=== PATIENT | female | born 2005 | race Caucasian/White ===

== ENCOUNTER 2023-03-08 16:20 | Emergency (ER) | payer OTHER, SELFPAY ==
[2023-03-08 16:24] VITALS: BP 135/79; PULSE 108; RESP 20; TEMP 36.9; O2SAT 99; BMI 30.9
--- NOTE | 2023-03-08 19:06 | ED_ITS ---
Documented by User: JANETH 03/08/23 19:12 HPI - Ear Problem General Chief complaint: Ear Stated complaint: ear pain Time Seen by Provider: 03/08/23 18:36 Source: patient Mode of arrival: walk-in Limitations: no limitations History of Present Illness HPI Narrative: patient is a 17-year-old female presents to the emergency department for the evaluation of pain in the left ear for the last two days. She states she has associated nasal congestion but no significant cough or chest congestion. She denies fevers, vomiting. She denies a possibility of . She took an o vfq-qst-lpxwdnz sinus medication without improvement. She denies any drainage from the left ear. Related Data Previous Rx's Medication Instructions Recorded azithromycin 250 mg tablet See Rx Instructions PO .COMPLEX #6 03/08/23 (Zithromax Z-Dg) tabs itzxfhoqewuwske-mmlwqrhqnodsged-QF 10 ml PO Q6H PRN cold symptoms 03/08/23 2 mg-30 mg-10 mg/5 mL oral syrup #118 mL (Bromfed DM) Allergies Allergy/AdvReac Type Severity Reaction Status Date / Time amoxicillin Allergy Severe Rash Verified 03/08/23 16:29 Review of Systems ROS Constitutional Denies: fever or chills Ears, nose, mouth, and throat Reports: ear pain and nasal congestion; Denies: throat pain Cardiovascular Denies: chest pain Respiratory Denies: shortness of breath Gastrointestinal Denies: nausea or vomiting Musculoskeletal Denies: back pain or neck pain Integumentary/Breast Denies: rash Neurological Denies: headache Hematologic/Lymphatic Denies: easy bruising PFSH PFSH Social History Smoking status: Never smoker Exam Narrative Exam Narrative: Gen.: Awake, alert, in no distress Head: Normocephalic, atraumatic ENT: Moist mucous membranes, right tympanic membrane is bulging, left tympanic membrane is bulging and erythematous and mildly injected in the superior half of the tympanic membrane. No evidence of perforation, no drainage in the canal. Respiratory: No respiratory distress, lungs clear bilaterally Cardio: Regular rate and rhythm Extremities: Moves extremities equally, no injuries noted Psych: Normal mood and affect Neuro: No focal neuro deficit Skin: Warm, dry, intact Constitutional Vital Signs, click to edit/add: Last Vital Signs Temp 98.4 F 03/08/23 16:24 Pulse 108 H 03/08/23 16:24 Resp 20 03/08/23 16:24 BP 135/79 03/08/23 16:24 Pulse Ox 99 03/08/23 16:24 O2 Del Method Room Air 03/08/23 16:24 Course Vital Signs Vital signs: Vital Signs Temperature 98.4 F 03/08/23 16:24 Pulse Rate 108 H 03/08/23 16:24 Respiratory Rate 20 03/08/23 16:24 Blood Pressure 135/79 03/08/23 16:24 Pulse Oximetry 99 03/08/23 16:24 Oxygen Delivery Method Room Air 03/08/23 16:24 Temperature 98.4 F 03/08/23 16:24 Pulse Rate 108 H 03/08/23 16:24 Respiratory Rate 20 03/08/23 16:24 Blood Pressure 135/79 03/08/23 16:24 Pulse Oximetry 99 03/08/23 16:24 Oxygen Delivery Method Room Air 03/08/23 16:24 Medical Decision Making MDM Narrative Medical decision making narrative: patient will be treated for early otitis media in the left ear, nasal congestion. She is placed on Bromfed-DM and azithromycin. She is ALLERGIC to penicillin. Follow-up with PCP and return to the Emergency Room if symptoms change or worsen. Patient appears well-hydrated and nontoxic at discharge. Medical Records Medical records reviewed: Yes I reviewed the patient's medical records Discharge Plan Discharge Chief Complaint: Ear Clinical Impression: URI (upper respiratory infection), Otitis media Patient Disposition: Home, Self-Care Time of Disposition Decision: 19:07 Condition: Good Prescriptions / Home Meds: New achvpfgfypzumut-vppmmeysv-KV [Bromfed DM] 2-30-10 mg/5 mL syrup 10 ml PO Q6H PRN (Reason: cold symptoms) Qty: 118 0RF azithromycin [Zithromax Z-Dg] 250 mg tablet See Rx Instructions .ROUTE .COMPLEX Qty: 6 0RF Rx Instructions: For 250 mg dose pack: take 500 mg today (day 1), then 250 mg for 4 days (days 2-5) Instructions: Ear Infection (ED), Upper Respiratory Infection (ED) Stand Alone Forms: Portal Instructions Referrals: HAZEL GRADY [Primary Care Provider] - 1 week Discharge Date/Time: 03/08/23 19:15 Documented by User: Kenny Alarcon MD 03/08/23 21:10 HPI - Ear Problem General Chief complaint: Ear Stated complaint: ear pain Time Seen by Provider: 03/08/23 18:36 Related Data Previous Rx's Medication Instructions Recorded azithromycin 250 mg tablet See Rx Instructions PO .COMPLEX #6 03/08/23 (Zithromax Z-Dg) tabs zbfndfgrdbfrvlu-hypntclufuvnwnh-HG 10 ml PO Q6H PRN cold symptoms 03/08/23 2 mg-30 mg-10 mg/5 mL oral syrup #118 mL (Bromfed DM) Allergies Allergy/AdvReac Type Severity Reaction Status Date / Time amoxicillin Allergy Severe Rash Verified 03/08/23 16:29 PFSH PFSH Social History Smoking status: Never smoker Exam Constitutional Vital Signs, click to edit/add: Last Vital Signs Temp 98.4 F 03/08/23 16:24 Pulse 108 H 03/08/23 16:24 Resp 20 03/08/23 16:24 BP 135/79 03/08/23 16:24 Pulse Ox 99 03/08/23 16:24 O2 Del Method Room Air 03/08/23 16:24 Course Vital Signs Vital signs: Vital Signs Temperature 98.4 F 03/08/23 16:24 Pulse Rate 108 H 03/08/23 16:24 Respiratory Rate 20 03/08/23 16:24 Blood Pressure 135/79 03/08/23 16:24 Pulse Oximetry 99 03/08/23 16:24 Oxygen Delivery Method Room Air 03/08/23 16:24 Temperature 98.4 F 03/08/23 16:24 Pulse Rate 108 H 03/08/23 16:24 Respiratory Rate 20 03/08/23 16:24 Blood Pressure 135/79 03/08/23 16:24 Pulse Oximetry 99 03/08/23 16:24 Oxygen Delivery Method Room Air 03/08/23 16:24 Medical Decision Making MDM Narrative Medical decision making narrative: patient will be treated for early otitis media in the left ear, nasal congestion. She is placed on Bromfed-DM and azithromycin. She is ALLERGIC to penicillin. Follow-up with PCP and return to the Emergency Room if symptoms change or worsen. Patient appears well-hydrated and nontoxic at discharge. I, Dr Alarcon, have reviewed the above progress note and course of action in the ER; agree with the above. I have personally seen and evaluated this patient, gone over history and physical, and discussed disposition and treatment plan with the patient. Discharge Plan Discharge Chief Complaint: Ear Clinical Impression: URI (upper respiratory infection), Otitis media Patient Disposition: Home, Self-Care Time of Disposition Decision: 19:07 Condition: Good Prescriptions / Home Meds: New bqzmznabjemiyma-gzxgysosn-HD [Bromfed DM] 2-30-10 mg/5 mL syrup 10 ml PO Q6H PRN (Reason: cold symptoms) Qty: 118 0RF azithromycin [Zithromax Z-Dg] 250 mg tablet See Rx Instructions .ROUTE .COMPLEX Qty: 6 0RF Rx Instructions: For 250 mg dose pack: take 500 mg today (day 1), then 250 mg for 4 days (days 2-5) Instructions: Ear Infection (ED), Upper Respiratory Infection (ED) Stand Alone Forms: Portal Instructions Referrals: HAZEL GRADY [Primary Care Provider] - 1 week Discharge Date/Time: 03/08/23 19:15
== END 2023-03-08 19:15 | disposition home or self-care (01) ==
PROVIDERS: Emergency Provider Emergency Medicine; PCP Family Medicine
DX: H66.92 Otitis media, unspecified, left ear (principal); J06.9 Acute upper respiratory infection, unspecified
CPT/HCPCS: 99283

== ENCOUNTER 2023-05-26 17:26 | Emergency (ER) | payer OTHER, SELFPAY ==
[2023-05-26 17:31] VITALS: BP 152/109; PULSE 100; RESP 18; TEMP 36.6; O2SAT 100; BMI 30.9
--- NOTE | 2023-05-26 18:51 | ED_ITS ---
HPI - Ear Problem General Chief complaint: Ear Stated complaint: EARACHE Time Seen by Provider: 05/26/23 17:27 Source: patient Mode of arrival: walk-in Limitations: no limitations History of Present Illness HPI Narrative: patient is a 17-year-old female who presents to the emergency department for a one-week history of cough, congestion and bilateral ear pain. She has had no fevers, vomiting. No sputum production with coughing. 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 She does not meet Covid testing for her employer. No medications taken prior to arrival. She is not concerned for . Related Data Previous Rx's Medication Instructions Recorded azithromycin 250 mg tablet See Rx Instructions PO .COMPLEX #6 03/08/23 (Zithromax Z-Dg) tabs ozbnxkvjufviats-ffknqthpuxahcvm-AI 10 ml PO Q6H PRN cold symptoms 03/08/23 2 mg-30 mg-10 mg/5 mL oral syrup #118 mL (Bromfed DM) azithromycin 250 mg tablet See Rx Instructions PO .COMPLEX #6 05/26/23 (Zithromax Z-Dg) tabs nnhlwjgfkkvyxfv-prnnizayishvakk-KM 10 ml PO Q6H PRN cold symptoms 05/26/23 2 mg-30 mg-10 mg/5 mL oral syrup #200 mL (Bromfed DM) Allergies Allergy/AdvReac Type Severity Reaction Status Date / Time amoxicillin Allergy Severe Rash Verified 03/08/23 16:29 Review of Systems ROS Constitutional Denies: fever or chills Ears, nose, mouth, and throat Reports: ear pain and nasal congestion; Denies: t hroat pain Cardiovascular Denies: chest pain Respiratory Reports: cough; Denies: shortness of breath Gastrointestinal Denies: nausea or vomiting Musculoskeletal Denies: back pain Integumentary/Breast Denies: rash Neurological Denies: headache Hematologic/Lymphatic Denies: easy bruising PFSH PFSH Social History Smoking status: Never smoker Exam Narrative Exam Narrative: Gen.: Awake, alert, in no distress Head: Normocephalic, atraumatic ENT: Moist mucous membranes, bilateral tympanic membranes bulging with no erythema or injection, no pharyngeal erythema Respiratory: No respiratory distress, lungs clear bilaterally Cardio: Regular rate and rhythm Extremities: Moves extremities equally Psych: Normal mood and affect Neuro: No focal neuro deficit Skin: Warm, dry, intact Constitutional Vital Signs, click to edit/add: Last Vital Signs Temp 97.9 F 05/26/23 17:31 Pulse 100 H 05/26/23 17:31 Resp 18 05/26/23 17:31 BP 152/109 H 05/26/23 17:31 Pulse Ox 100 05/26/23 17:31 Course Vital Signs Vital signs: Vital Signs Temperature 97.9 F 05/26/23 17:31 Pulse Rate 100 H 05/26/23 17:31 Respiratory Rate 18 05/26/23 17:31 Blood Pressure 152/109 H 05/26/23 17:31 Pulse Oximetry 100 05/26/23 17:31 Temperature 97.9 F 05/26/23 17:31 Pulse Rate 100 H 05/26/23 17:31 Respiratory Rate 18 05/26/23 17:31 Blood Pressure 152/109 H 05/26/23 17:31 Pulse Oximetry 100 05/26/23 17:31 Medical Decision Making MDM Narrative Medical decision making narrative: exam and history are consistent with upper respiratory infection, patient t reated based on the duration of symptoms with Z-Dg and Bromfed-DM to follow-up with PCP. Return to the Emergency Room if symptoms change or worsen. Medical Records Medical records reviewed: Yes I reviewed the patient's medical records Discharge Plan Discharge Chief Complaint: Ear Clinical Impression: URI (upper respiratory infection) Patient Disposition: Home, Self-Care Time of Disposition Decision: 18:47 Condition: Good Prescriptions / Home Meds: New azithromycin [Zithromax Z-Dg] 250 mg tablet See Rx Instructions .ROUTE .COMPLEX Qty: 6 0RF Rx Instructions: For 250 mg dose pack: take 500 mg today (day 1), then 250 mg for 4 days (days 2-5) wnymgokliygxcae-pvvepldyg-PP [Bromfed DM] 2-30-10 mg/5 mL syrup 10 ml PO Q6H PRN (Reason: cold symptoms) Qty: 200 0RF No Action wyxtqxirzwkkfow-rmcshcoim-ZG [Bromfed DM] 2-30-10 mg/5 mL syrup 10 ml PO Q6H PRN (Reason: cold symptoms) Qty: 118 0RF azithromycin [Zithromax Z-Dg] 250 mg tablet See Rx Instructions .ROUTE .COMPLEX Qty: 6 0RF Rx Instructions: For 250 mg dose pack: take 500 mg today (day 1), then 250 mg for 4 days (days 2-5) Instructions: Upper Respiratory Infection (ED) Stand Alone Forms: Portal Instructions Referrals: HAZEL GRADY [Primary Care Provider] - 1 week
== END 2023-05-26 18:55 | disposition home or self-care (01) ==
PROVIDERS: Emergency Provider Emergency Medicine; PCP Family Medicine
DX: J06.9 Acute upper respiratory infection, unspecified (principal)
CPT/HCPCS: 99283

== ENCOUNTER 2024-06-24 15:16 | Emergency (ER) | payer OTHER, SELFPAY ==
[2024-06-24 15:21] VITALS: PULSE 88; TEMP 36.7; O2SAT 100; BMI 30.9
--- OUTSIDE RECORDS SUMMARY | 2024-06-24 15:25 | XMS_ITS | CCD ---
Author Organization [facility] CliniS[employer]n Care Team Providers Care New Client Banking Services Clerk Name Role Phone Almaz Huerta Unavailable HAZEL GRADY Primary Care Unavailable CHRISTIANO TATUM Attending Unavailable CHRISTIANO TATUM Consulting Unavailable CHRISTIANO TATUM Admitting Unavailable Sheree Cheung Unavailable Dom Sarmiento Attending Unavailable Tiesha Flood Unavailable Allergies Allergy Classification Reported Allergen(s) Allergy Type Date of Onset Reaction(s) Facility (5 sources) Amoxicillin; Translations: [amoxicillin] Drug Allergy [facility] Repository (1 source) Amoxicillin Drug Allergy 07-16-2016 [facility] Repository Medications Current Medications Medication Drug Class(es) Dates Sig (Normalized) Sig (Original) azithromycin 500 mg oral tablet (1 source) Macrolide Antimicrobial Start: 09-17-2023 take 1 tablet by mouth every twenty-four hours Azithromycin 500 MG 1 tablet Orally Once a day for 5 days Sep, Active sprintec 28 0.25-35 mg-mcg tablet (2 sources) Progestin, Estrogen Start: 09-06-2023 take 1 tablet by mouth every twenty-four hours Sprintec 28 0.25-35 MG-MCG 1 tablet Orally Once a day for 28 day(s) Aug, Active sertraline 50 mg oral tablet (3 sources) Serotonin Reuptake Inhibitor Start: 07-27-2023 take 1 tablet by mouth once daily Sertraline HCl 50 MG 1 tablet Orally Once a day at night for 30 days Jul, Active Problems Active Problems Problem Classification Problem Date Documented Date Episodic/Chronic Anxiety disorders (5 sources) Generalized anxiety disorder; Translations: [Generalized anxiety disorder] Chronic Contraceptive and procreative management (1 source) Encounter for initial prescription of contraceptive pills Episodic Mood disorders (5 sources) Moderate major depression ; Translations: [Major depressive disorder, single episode, moderate] Chronic Other upper respiratory disease (3 sources) Nasal congestion; Translations: [NASAL CONGESTION] Onset: 04-06-2022 Episodic Other upper respiratory infections (3 sources) Acute upper respiratory infection, unspecified; Translations: [Acute pharyngitis, unspecified] Onset: 04-07-2022 Episodic Past or Other Problems Problem Classification Problem Date Documented Da te Episodic/Chronic Administrative/social admission (1 source) Encounter for pre-employment examination Onset: 01-21-2022 Resolved: 01-21-2022 Episodic Results Test Name Value Interpretation Reference Range Facility [facility]rep[facility] 09-17-2023 S. pyogenes Org specific cx Ql (Throat) positve [employer] Other Quick Strep [employer] Other Test, Urineon 08-11 Beta HCG ( test) Ql (U) Negative [facility] [employer] Other Capillary Glucose POCon Glucose [Mass/Vol] 94 mg/dL Normal 55-99 [facility] Comment on above: Result Comment: Loretta mcneal RN/ Performed By: #### 2 [id number] #### [facility] Laboratory [address] [place] [id number] Consent for Treatmenton Consent for Treatment [id number] 0TIFF Normal [facility] Discharge Instructionson Discharge Instructions [id number] 0TIFF Normal [facility] ED Clinical Summaryon 2022 ED Clinical Summary [address] [address] ED Clinical Summary Person Information Name: JIMBO DOE/Antonino_Franco Age: 17 Years : 2005 Sex: Female Language: Bulgarian PCP: Lv WANG, Hazel Barajas Marital Status: Single Visit Id: Visit Reason: Cough; Dizziness; Ear pain; sob ear pain Speciality: Acuity: 3 Enc Type: Emergency Med Service: Emergency Arrival: 07/13/2023 23:32:13 Discharge: 07/14/2023 03:42:13 LOS: 000 04:10 Checkin: 07/13/2023 23:32:13 Checkout: 07/14/2023 03:42:13 Dispo Type: Home (Routine DC) EVENTS: Event Name Event Status Request Date/Time Start Date/Time Complete Date/Time Arrive Complete 07/13/2023 23:32:13 07/13/2023 23:32:13 07/13/2023 23:32:13 Document Home Meds Request 07/13/2023 23:32:13 Triage Complete 07/13/2023 23:32:13 07/13/2023 23:42:06 07/13/2023 23:42:06 EKG Complete 07/13/2023 23:40:09 07/14/2023 01:56:05 Registration Complete 07/14/2023 00:23:48 07/14/2023 00:23:48 07/14/2023 00:23:48 Reg Complete Request 07/14/2023 00:23:48 Reg Bed Request Complete 07/14/2023 00:23:48 07/14/2023 00:23:48 07/14/2023 00:23:48 Bed Assign Complete 07/14/2023 01:47:27 07/14/2023 01:47:27 07/14/2023 01:47:27 Dr Exam Complete 07/14/2023 01:47:27 07/14/2023 01:56:46 07/14/2023 01:56:46 RN Exam Complete 07/14/2023 01:47:27 07/14/2023 02:02:27 07/14/2023 02:02:27 Registration Request 07/14/2023 01:56:46 Pending Labs Complete 07/14/2023 02:01:05 07/14/2023 02:01:05 07/14/2023 02:01:07 Pending Labs Complete 07/14/2023 02:16:25 07/14/2023 03:24:46 Lab Complete 07/14/2023 02:16:25 07/14/2023 03:24:35 Swab Complete 07/14/2023 02:16:25 07/14/2023 03:24:23 X-Ray Complete 07/14/2023 02:16:25 07/14/2023 02:22:57 07/14/2023 02:23:37 Wet Read Request 07/14/2023 02:23:37 Meds Admin Complete 07/14/2023 03:31:59 07/14/2023 03:38:36 Discharge Complete 07/14/2023 03:33:16 07/14/2023 03:42:19 07/14/2023 03:42:19 Transfer Complete 07/14/2023 03:42:20 07/14/2023 03:42:20 07/14/2023 03:42:20 ADDRESS: [address] [place] [address] [address] [facility] [id number] PHYS DOC NOTES: MEDICAL INFORMATION: Prescriptions Given: New Medications [id number], [address], [place] [id number], [phone] azithromycin (azithromycin 250 mg Tab) 1 Tablets By Mouth every day for 4 Days. Refills: 0. PATIENT EDUCATION INFORMATION: Instructions: Viral Illness, Adult; Otitis Media, Adult Follow up: With: Address: When: Hazel Lv [address] [place], [place] [id number] Business (2) In 7 days 07/21/2023 DIAGNOSIS: AOM (acute otitis media); Viral illness Normal [facility] ED Note-Physicianon 07-14-20 ED Note-Physician Basic Information Time Seen: Dom Sarmiento DO 07/14/2023 01:56 Chief Complaint Ear pain and dizziness for 2 days. Cough with productive sputum at times. No fever. History of Present Illness HPI: Patient is a 17-year-old female presents the ED for cough, lightheadedness, and ear pain. Patient states that for started with a cough and lightheadedness a couple days ago. Today she started having pain in both of her ears but worse on the right. She denies any nausea vomiting or diarrhea. She denies any fevers that she is aware of. ROS: Pertinent review of systems conducted and is negative except as noted above. Physical exam: General: nontoxic appearing and in no distress HEENT: Mucous membranes moist. Right TM is erythematous and opaque with some bulging. Left TM is clear. Neuro: awake and alert Neck: supple, trachea midline Card: Heart regular rate and rhythm no murmur Resp: Lungs clear to auscultation no wheeze or rhonchi Abd: Soft and nondistended. No tenderness to palpation with no rebound or guarding. Ext: No gross deformity or edema Physical Exam Vitals & Measurements T: 36.9 ?C(Oral) HR: 87(Monitored) RR: 18 BP: 149/62 SpO2: 98% HT: 175 cm WT: 121.7 kg BMI: 39.74 Medical Decision Making MEDICAL DECISION MAKING Number and Complexity of Problems Differential Diagnosis: [] [facility] Data External documents reviewed: N/A My EKG interpretation: Noted in chart if applicable My CT interpretation: N/A My X-ray interpretation: Noted in chart if applicable My Ultrasound interpretation: N/A Decision rules/scores evaluated: N/A Discussed with: N/A Treatment and Disposition ED Course: Patient is well-appearing in no distress. She is afebrile here in the ED. We did swabs for COVID flu and influenza which were negative. Chest x-ray is clear. Her right TM does show signs of acute otitis media. I feel this likely started as a viral URI and now she has developed a right ear infection. We will start her on a course of azithromycin as she has a history of allergy to amoxicillin. Will have her follow-up with her primary care physician. Shared decision making: As above Code status: N/A Assessment/Plan AOM (acute otitis media) (H66.90: Otitis media, unspecified, unspecified ear) Viral illness (B34.9: Viral infection, unspecified) Orders: azithromycin, 500 mg = 2 tab(s), Tab, Oral, Once, Stop date 07/14/23 3:31:00 EST, STAT, Start date 07/14/23 3:31:00 EST, 07/14/23 3:31:00 EST azithromycin, 250 mg = 1 tab(s), Oral, Daily, X 4 day(s), # 4 tab(s), Refills(s) 0, Pharmacy: [id number], 175, cm, 12/05/23 23:42:00 EST, Height/Length Dosing, 121.7, kg, 07/13/23 23:42:00 EST, Weight Dosing Capillary Glucose POC Influenza A&B Ag Rapid COVID Antigen ([facility] [place]) Resp.syn.virus (Rsv) XR Chest Single View Disposition Plan Discharge Prescription List Prescriptions azithromycin 250 mg Tab, 250 mg= 1 tab(s), Oral, Daily Follow-up With When Contact Information Hazel Grady In 7 days 07/21/2023 EST [address] [place] [address] [facility] (2) Additional Instructions: Patient Education Viral Illness, Adult Otitis Media, Adult Problem List/Past Medical History Ongoing No qualifying data Historical No qualifying data Medications Inpatient azithromycin 250 mg Tab, 500 mg= 2 tab(s), Oral, Once Home azithromycin 250 mg Tab, 250 mg= 1 tab(s), Oral, Daily Allergies amoxicillin (Rash) Social History Alcohol - Denies Alcohol Use, 07/14/2023 Substance Abuse - Denies Substance Abuse, 07/14/2023 Tobacco - Denies Tobacco Use, 07/14/2023 Lab Results Glucose Cap: 94 mg/dL (07/14/23 02:00:00) POC Device SN: [id number] (07/14/23 02:00:00) POC User ID: [id number] (07/14/23 02:00:00) POC Username: POC Username (07/14/23 02:00:00) Influenzae A Ag: NEGATIVE1 (07/14/23 02:22:00) Influenzae B Ag: NEGATIVE1 (07/14/23 02:22:00) RSV Ab: NEGATIVE1 (07/14/23 02:22:00) Rapid COVID Ag: Not Detected (07/14/23 02:22:00) Rapid COV Int NEG Ctl: Pass (07/14/23 02:22:00) Rapid COV Int POS Ctl: Pass (07/14/23 02:22:00) Diagnostic Results XR Chest Single View * Preliminary * 07/14/23 02:48:40 NEGATIVE: No acute process Read By: Dom Sarmiento DO EKG Results EC07/14/23: SINUS RHYTHM NORMAL ECG Signed By: Dom Sarmiento DO 07/14/2023 01:56:22 Normal [facility] Comment on above: Result Comment: Elec tronically Signed By: Dom Sarmiento DO\.br\Date and Time Signed: 07/14/23 03:34 EST ED Patient Education Noteon 07-14-2023 ED Patient Education Note ENT Otitis Media, Adult Otitis media occurs when there is inflammation and fluid in the middle ear with signs and symptoms of an acute infection. The middle ear is a part of the ear that contains bones for hearing as well as air that helps send sounds to the brain. When infected fluid builds up in this space, it causes pressure and can lead to an ear infection. The eustachian tube connects the middle ear to the back of the nose (nasopharynx) and normally allows air into the middle ear. If the eustachian tube becomes blocked, fluid can build up and become infected. What are the causes? This condition is caused by a blockage in the eustachian tube. This can be caused by mucus or by swelling of the tube. Problems that can cause a blockage include: ? A cold or other upper respiratory infection. ? Allergies. ? An irritant, such as tobacco smoke. ? Enlarged adenoids. The adenoids are areas of soft tissue located high in the back of the throat, behind the nose and the roof of the mouth. They are part of the body's defense system (immune system). ? A mass in the nasopharynx. ? Damage to the ear caused by pressure changes (barotrauma). What increases the risk? You are more likely to develop this condition if you: ? Smoke or are exposed to tobacco smoke. ? Have an opening in the roof of your mouth (cleft palate). ? Have gastroesophageal reflux. ? Have an immune system disorder. What are the signs or symptoms? Symptoms of this condition include: ? Ear pain. ? Fever. ? Decreased hearing. ? Tiredness (lethargy). ? Fluid leaking from the ear, if the eardrum is ruptured or has burst. ? Ringing in the ear. How is this diagnosed? This condition is diagnosed with a physical exam. During the exam, your health care provider will use an instrument called an otoscope to look in your ear and check for redness, swelling, and fluid. He or she will also ask about your symptoms. Your health care provider may also order tests, such as: ? A pneumatic otoscopy. This is a test to check the movement of the eardrum. It is done by squeezing a small amount of air into the ear. ? A tympanogram. This is a test that shows how well the eardrum moves in response to air pressure in the ear canal. It provides a graph for your health care provider to review. How is this treated? This condition can go away on its own within 3?5 days. But if the condition is caused by a bacterial infection and does not go away on its own, or if it keeps coming back, your health care provider may: ? Prescribe antibiotic medicine to treat the infection. ? Prescribe or recommend medicines to control pain. Follow these instructions at home: ? Take owib-wkz-iogwlih and prescription medicines only as told by your health care provider. ? If you were prescribed an antibiotic medicine, take it as told by your health care provider. Do not stop taking the antibiotic even if you start to feel better. ? Keep all follow-up visits. This is important. Contact a health care provider if: ? You have bleeding from your nose. ? There is a lump on your neck. ? You are not feeling better in 5 days. ? You feel worse instead of better. Get help right away if: ? You have severe pain that is not controlled with medicine. ? You have swelling, redness, or pain around your ear. ? You have stiffness in your neck. ? A part of your face is not moving (paralyzed). ? The bone behind your ear (mastoid bone) is tender when you touch it. ? You develop a severe headache. Summary ? Otitis media is redness, soreness, and swelling of the middle ear, usually resulting in pain and decreased hearing. ? This condition can go away on its own within 3?5 days. ? If the problem does not go away in 3?5 days, your health care provider may give you medicines to treat the infection. ? If you were prescribed an antibiotic medicine, take it as told by your health care provider. ? Follow all instructions that were given to you by your health care provider. This information is not intended to replace advice given to you by your health care provider. Make sure you discuss any questions you have with your health care provider. Document Revised: 11/03/2021 Document Reviewed: 11/03/2021 [employer] Patient Education ? 2022 RegisterPatient. Infectious Disease Viral Illness, Adult Viruses are tiny germs that can get into a person's body and cause illness. There are many different types of viruses, and they cause many types of illness. Viral illnesses can range from mild to severe. They can affect various parts of the body. Short-term conditions that are caused by a virus include colds and the flu (influenza). Long-term conditions that are caused by a virus include herpes, shingles, and HIV (human immunodeficiency virus) infection. A few viruses have been linked to certain cancers. What are the causes? Many types of viruses can cause illne (more content not included)... Normal [facility] ED Patient Summaryon 023 ED Patient Summary [address] [address] Patient Discharge Instructions Person Information Name: JIMBO DOE Age: 17 Years Arrival Date: 07/13/2023 23:32:13 Discharge Diagnosis: AOM (acute otitis media); Viral illness Primary Care Physician: Hazel Grady MD Provider Information Primary Provider: Dom Sarmiento DO [employer]:None The exam and treatment you received in the Emergency Department were for an urgent problem and are not intended as complete care. It is important that you follow up with a doctor, nurse practitioner, or physician?s assistant plant manager for ongoing care. If your symptoms become worse or you do not improve as expected and you are unable to reach your usual health care provider, you should return to the Emergency Department. We are available 24 hours a day. JIMBO DOE has been given the following list of patient education materials, prescriptions and follow-up instructions: Follow-up Instructions: With: Address: When: [place] [address] Business (2) In 7 days 07/21/2023 In the event that this physician does not participate in your insurance network, please consult with your insurance company to find a nearby participating provider. Patient Education Materials: Viral Illness, Adult; Otitis Media, Adult A MESSAGE TO ALL PATIENTS REGARDING OPIOIDS PRESCRIPTION OPIOIDS: WHAT YOU NEED TO KNOW Prescription opioids can be used to help relieve laqumpsv-uk-erjryo pain and are often prescribed following a surgery or injury, or for certain health conditions. These medications can be an important part of the treatment but also come with serious risks. It is important to work with your healthcare provider to make sure you are getting the safest, most effective care. WHAT ARE THE RISKS AND SIDE EFFECTS OF OPIOID USE? Prescription opioids carry serious risks of addiction and overdose, especially with prolonged use. An opioid overdose, often marked by slowed breathing, can cause sudden . The use of prescription opioids can have a number of side effects as well, even when taken as directed: ? Tolerance?meaning you might need to take more of the medication for the same pain relief ? Physical dependence?meaning you have symptoms of withdrawal when a medication is stopped ? Increased sensitivity to pain ? Constipation ? Nausea, vomiting, and dry mouth ? Sleepiness and dizziness ? Confusion ? Depression ? Low levels of testosterone that can result in lower sex drive, energy, and strength ? Itching and sweating RISKS ARE GREATER WITH: ? History of drug misuse, substance use disorder, or overdose ? Mental health conditions (such as depression or anxiety) ? Sleep apnea ? Older age (65 years and older) ? Avoid alcohol while taking prescription opioids. Also, unless specifically advised by your health care provider, medications to avoid include: ? Benzodiazepines (such as Xanax or Valium) ? Muscle relaxants (such as Soma or Flexeril) ? Hypnotics (such as Ambien or Lunesta) ? Other prescription opioids KNOW YOUR OPTIONS Talk to your health care provider about ways to manage your pain that don?t involve prescription opioids. Some of these options may actually work better and have fewer risks and side effects. Options may include: ? Pain relievers such as acetaminophen, ibuprofen, and naproxen ? Some medication that are also used for depression or seizures ? Physical therapy and exercise ? Cognitive behavioral therapy, a psychological, goal-directed approach, in which patients learn how to modify physical, behavioral, and emotional triggers of pain and stress. IF YOU ARE PRESCRIBED OPIOIDS FOR PAIN: ? Never take opioids in greater amounts or more often than prescribed. ? Follow up with your primary health care provider. o Work together to create a plan on how to manage your pain. o Talk about ways to help manage your pain that don?t involve prescription opioids. o Talk about any and all concerns and side effects. ? Help prevent misuse and abuse o Never sell or share prescription opioids. o Never use another person?s prescription opioids. ? Store prescription opioids in a secure place and out of reach of others (this may include visitors, children, friends, and family). ? Safely dispose of unused prescription opioids: Find your community drug take-back program or your pharmacy mail-back program, or flush them down the toilet, following guidance from the Food and Drug Administration (www.fda.gov/Drugs/Res ourcesForYou). ? Visit www.cdc.gov/drugoverdo se to learn about the risks of opioids abuse and overdose. ? If you believe you may be struggling with addiction, tell your health pet care associate and ask for guidance or call [facility]?S National Helpline at 4-002-345-DQAM. (more content not included)... Normal [facility] Influenza A&B Agon 3 Influenzae A Ag Negative Normal Negative [facility] Comment on above: Performed By: #### 2 [id number] #### [facility] [address] [place] [address] Influenzae B Ag Negative Normal Negative [facility] Comment on above: Result Comment: Test sensitivity and specificity vary for age group, specimen type, antigen types, and prevalence of disease. Test results must be evaluated in conjunction with other clinical data available to the physician. Individuals who received nasally administered Influenza A vaccine may have positive test results up to 3 days after vaccination. Performed By: #### 2 [id number] #### [facility] [address] [place] [address] Prescriptions/Work Noteson 1 09-14-2022 Prescriptions/Work Notes [id number] 0TIFF Normal [facility] Rapid COVID Antigen ([facility])on 07-14-2023 Rapid COV Int NEG Ctl Pass Normal [facility] Comment on above: Performed By: #### 2 [id number] #### [facility] [address] [place] [address] Rapid COV Int POS Ctl Pass Normal [facility] Comment on above: Performed By: #### 2 [id number] #### [facility] [address] [place] [address] SARS-CoV+SARS-CoV-2 (COVID-19) Ag IA.rapid Ql (Resp) Not detected Normal Not Detected [facility] Comment on above: Result Comment: The [employer] System for Rapid Detection of SARS-CoV-2 is a chromatographic digital immunoassay intended for the direct and qualitative detection of SARS-CoV-2 nucleocapsid antigens in nasal swabs from individuals who are suspected of COVID-19 by their healthcare provider within the first five days of the onset of symptoms. Negative results should be treated as presumptive, do not rule out SARS-CoV-2 infection and should not be used as the sole basis for treatment or patient management decisions, including infection control decisions. Negative results should be considered in the context of a patient?s recent exposures, history and the presence of clinical signs and symptoms consistent with COVID-19, and confirmed with a molecular assay, if necessary, for patient management. For in vitro diagnostic use. In the [place], only for use under an Emergency Use Authorization. In the [place], this test has not been FDA cleared or approved; this test has been authorized by FDA under an EUA for use by authorized laboratories; use by laboratories certified under the CLIA, 42 U.S.C. ?263a, that meet requirements to perform moderate, high, or waived complexity tests and at the Point of Care (POC), i.e., in patient care settings operating under a CLIA Certificate of Waiver, Certificate of Compliance, or Certificate of Accreditation. This test has been authorized only for the detection of proteins from SARS-CoV-2, not for any other viruses or pathogens; and, in the [place], this test is only authorized for the duration of the declaration that circumstances exist justifying the authorization of emergency use of in vitro diagnostics for detection and/or diagnosis of the virus that causes COVID-19 under Section 564(b)(1) of the Act, 21 U.S.C. ? 360bbb-3(b)(1), unless the authorization is terminated or revoked sooner. Performed By: #### 2 [id number] #### [facility] [address] [place] [address] Resp.syn.virus (Rsv)on 07-14 RSV Ag IA.rapid Ql (Nph) Negative Normal Negative [facility] Comment on above: Performed By: #### 2 [id number] #### [facility] [address] [place] [address] XR Chest Single Viewon 07-14 XR Chest Single View Exam Date/Time: 07/14/2023 02:23 EST Reason for Exam: Cough Report IMPRESSION: There are no acute cardiopulmonary changes. CLINICAL HISTORY: Cough EXAMINATION: XR Chest Single View COMPARISON: FINDINGS: The cardiomediastinal silhouette is unremarkable. The lungs are free of infiltrates effusions or consolidations. There are no acute osseous changes. Ordering Provider: Dom Sarmiento FINAL REPORT Dictated: 07/14/2023 7:48 am Dex Leyva MD, V. Signed (Electronic Signature): 07/14/2023 7:48 am Signed by: Dex Leyva MD, V. Transcribed by: ANGELINA Technologist: HILL Technical Comments Radiation Dose: Ka,r in mGy = na DAP = na Normal [facility] [employer] 12-24-2022 Forms [id number] 0CD:127 Normal [facility] Vital Signs Date Time Vital Sign Value Performing Clinician Facility 09-17-2023 09:35-0500 Body height 175.26 cm Tiesha Flood Other [facility] Other 09-17-2023 09:35-0500 Body mass index (BMI) [Ratio] 40.16 kg/m2 Tiesha Flood Other [facility] Other 09-17-2023 09:35-0500 Body temperature 99.2 [degF] Tiesha Flood Other [facility] Other 09-17-2023 09:35-0500 Body weight 123.38 kg Tiesha Flood Other [facility] Other 09-17-2023 09:35-0500 Respiratory rate 18 /min Tiesha Flood Other [facility] Other 09-17-2023 09:35-0500 SaO2% (BldA) [Mass fraction] 97 % Tiesha Flood Other [facility] Other 09-02-2023 09:30-0500 Body height 175.26 cm Sheree Cheung Other [facility] Other 09-02-2023 09:30-0500 Body mass index (BMI) [Ratio] 40.21 kg/m2 Sheree Cheung Other [facility] Other 09-02-2023 09:30-0500 Body weight 123.52 kg Sheree Cheung Other [facility] Other 09-02-2023 09:30-0500 Diastolic blood pressure 78 mm[Hg] Sheree Cheung Other [facility] Other 09-02-2023 09:30-0500 Respiratory rate 18 /min Sheree Cheung Other [facility] Other 09-02-2023 09:30-0500 SaO2% (BldA) [Mass fraction] 97 % Sheree Cheung Other [facility] Other 09-02-2023 09:30-0500 Systolic blood pressure 120 mm[Hg] Sheree Cheung Other [facility] Other 07-27-2023 09:30-0500 Body height 175.26 cm Sheree Cheung Other [facility] Other 07-27-2023 09:30-0500 Body mass index (BMI) [Ratio] 40.02 kg/m2 Sheree Jonatan Other [facility] Other 07-27-2023 09:30-0500 Body weight 122.93 kg Sheree Jonatan Other [facility] Other 07-27-2023 09:30-0500 Diastolic blood pressure 76 mm[Hg] Sheree Cheung Other [facility] Other 07-27-2023 09:30-0500 Respiratory rate 16 /min Sheree Jonatan Other [facility] Other 07-27-2023 09:30-0500 SaO2% (BldA) [Mass fraction] 98 % Sheree Cheung Other [facility] Other 07-27-2023 09:30-0500 Systolic blood pressure 120 mm[Hg] Sheree Cheung Other [facility] Other 01-21-2022 15:35-0400 Body height 175.26 cm Almaz Huerta Other [facility] Other 01-21-2022 15:35-0400 Body mass index (BMI) [Ratio] 30.86 kg/m2 Almaz Huerta Other [facility] Other 01-21-2022 15:35-0400 Body temperature 97.3 [degF] Almaz Huerta Other [facility] Other 01-21-2022 15:35-0400 Body weight 94.8 kg Almaz Huerta Other [facility] Other 01-21-2022 15:35-0400 Diastolic blood pressure 73 mm[Hg] Almaz Huerta Other [facility] Other 01-21-2022 15:35-0400 Respiratory rate 16 /min Almaz Huerta Other [facility] Other 01-21-2022 15:35-0400 SaO2% (BldA) [Mass fraction] 97 % Almaz Huerta Other [facility] Other 01-21-2022 15:35-0400 Systolic blood pressure 133 mm[Hg] Almaz Huerta Other [facility] Other Encounters Encounter Date Encounter Type Care Provider Facility Start: 09-17-2023 End: 09-17-2023 ambulatory Tiesha Flood Other [facility] Other Start: 09-17-2023 Office outpatient vi sit 15 minutes Tiesha Flood [facility] [place] Start: 09-02-2023 End: 09-02-2023 ambulatory Sheree Cheung Other [facility] Other Start: 09-02-2023 Office outpatient vi sit 25 minutes Sheree Cheung [facility] [place] Start: 07-27-2023 End: 07-27-2023 ambulatory Sheree Cheung Other [facility] Other Start: 07-27-2023 Encounter for genera l adult medical examination without abnormal findings Sheree Cheung [facility] [place] Start: 07-27-2023 Initial preventive medicine new pt age 18-39yrs Sheree Cheung [facility] [place] Start: 07-14-2023 End: 07-14-2023 Emergency department patient visit Dom SFreya Sarmiento Facility:[facility] [place], [place] Start: 12-24-2022 ambulatory Dom Sarmiento Facility: [facility] [place] Start: 04-06-2022 End: 04-06-2022 ambulatory HAZEL GRADY Facility: Start: 01-21-2022 (URG) Urgent Care Visit Almaz romero [facility] [place] Start: 01-21-2022 End: 01-21-2022 ambulatory Almazjordon Huerta Other [facility] Other Immunizations Immunization Date Immunization Notes Care Provider Chase sequeira 03-17-2021 Human Papillomavirus 9-valent vaccine Almaz Deanna Other [facility] Other 02-10-2021 Do not use COVID-19 Pfizer 2 dose Almaz Deanna Other [facility] Other 08-04-2016 Human Papillomavirus 9-valent vaccine Almaz Deanna Other [facility] Other 05-22-2016 Human Papillomavirus 9-valent vaccine Almaz Deanna Other [facility] Other 07-29-2015 hepatitis A vaccine, pediatric/adolescent dosage, 2 dose schedule Almaz Deanna Other [facility] Other 04-02-2007 hepatitis A vaccine, pediatric/adolescent dosage, 2 dose schedule Almaz Deanna Other [facility] Other 04-14-2005 diphtheria, tetanus toxoids and acellular pertussis vaccine, 5 pertussis antigens Almaz Deanna Other [facility] Other 10-09-2004 measles, mumps and rubella virus vaccine Almaz Deanna Other [facility] Other 04-21-2004 DTaP-hepatitis B and poliovirus vaccine Almaz Deanna Other [facility] Other 04-21-2004 haemophilus influenz ae type b vaccine, PRP-T conjugate Almaz Deanna Other [facility] Other 02-19-2004 DTaP-hepatitis B and poliovirus vaccine Almaz Deanna Other [facility] Other 02-19-2004 haemophilus influenz ae type b vaccine, PRP-T conjugate Almaz Deanna Other [facility] Other 2003 DTaP-hepatitis B and poliovirus vaccine Almaz Deanna Other [facility] Other 2003 haemophilus influenz ae type b vaccine, PRP-T conjugate Almaz Deanna Other [facility] Other 2003 hepatitis B vaccine, pediatric or pediatric/adolescent dosage Almaz Deanna Other [facility] Other Payers Date Payer Category Payer Private Health Insurance 2003 Unknown [id number] 1959 Unknown [id number] 1961 Unknown [id number] 1959 Unknown [id number] Social History Date Type Detail Facility Unknown if ever smoked [facility] Other Sex Assigned At Sex Assigned At Bir th [facility] Other Evaluation note 09-17-2023 Note Date & Type Note Facility 09-17-2023 Evaluation note Encounter Date Diagnosis Assessment Notes Sep, Sore throat (ICD-10 - J02.9) Sep, Strep pharyngitis (ICD-10 - J02.0) Advised patient that strep test was positive. Instructed to take antibiotic as directed, complete entire course even if feeling better. Allergies and recent antibiotics reviewed. Advised that patient is contagious for 24 hours after starting antibiotic. Discussed good hand hygiene and infection control. New tooth brush and wash linens after 2-3 days of being on antibiotic to prevent reinfection. Discussed supportive care, push fluids and rest, eat soft foods and liquids that are easy to swallow, use throat lozenges and warm salt water gargles, Tylenol/Motrin as needed for fever or discomfort. Symptoms should improve in the next 48 hours, eval by PCP or UC if symptoms have not improved with treatment. Immediate eval if difficultly managing oral secretions, drooling, unilateral neck swelling, hot potato voice, persistent fever, neck pain/stiffness, severe headache, lethargy or any new or concerning symptoms arise. Patient verbalizes understanding and is agreeable to treatment plan. [facility] Other Evaluation note 09-02-2023 Note Date & Type Note Facility 09-02-2023 Evaluation note Encounter Date Diagnosis Assessment Notes Aug, MATTHIAS (generalized anxiety disorder) (ICD-10 - F41.1) Patient is not suicidal or homicidal at this time. Doing very well with Zoloft 50 mg daily. Medication profile and possible SE reviewed with patient today. Patient to take medication as directed and prescribed. Do not skip/miss doses and do not stop abruptly. Referral sent to [facility] for counseling. Warning s/s reviewed with patient today. Patient to go immediately to the ER should patient experience any of these. Patient verbalizes understanding and agrees to treatment plan. Aug, Moderate major depression (ICD-10 - F32.1) See above treatment plan. Aug, BCP ( control pills) initiation (ICD-10 - Z30.011) She would like to start oral control. test in the office is negative. She has no history of migraines and does not smoke. She is agreeable to starting oral control. Medication profile and possible side effects reviewed with patient. Take as directed. Follow-up in 4 weeks to see how she is doing and recheck blood pressure, sooner if needed. Aug, Other This documentation is being amended on 09/06/23 due to an internal data corruption event that occurred on 09/02/23. This data corruption event was NOT the result of any breach, fraud, or malicious third green party actors and no personal patient information was compromised. [facility] Other Evaluation note 07-27-2023 Note Date & Type Note Facility 07-27-2023 Evaluation note Encounter Date Diagnosis Assessment Notes Jul, Well adult exam (ICD-10 - Z00.00) Routine lab work ordered. Follow routinely with eye doctor and dentist. Patient is advised to work on healthy diet choices and appropriate servings, weight control, regular exercise as directed, reduced fat intake, and salt avoidance. Patient voiced understanding of this and agrees to this plan. Jul, MATTHIAS (generalized anxiety disorder) (ICD-10 - F41.1) Patient is not suicidal or homicidal at this time. Discussed treatment options with patient today. It was decided in collaboration with the patient to start Zoloft daily for management with depression/anxie ty. Medication profile and possible SE reviewed with patient today. Patient to take medication as directed and prescribed. Do not skip/miss doses and do not stop abruptly. Referral sent to [facility] Hern[facility]dez for counseling. Warning s/s reviewed with patient today. Patient to go immediately to the ER should patient experience any of these. Follow up in 4 weeks to assess symptoms and medication effectiveness. Patient verbalizes understanding and agrees to treatment plan. Jul, Moderate major depression (ICD-10 - F32.1) See above treatment plan. [facility] Other Evaluation note 01-21-2022 Note Date & Type Note Facility 01-21-2022 Evaluation note Encounter Date Diagnosis Assessment Notes Jan, Pre-employment examination (ICD-10 - Z02.1) [facility] Other History general Narrative - Reported Note Date & Type Note Facility History general Narrative - Reported Type Medical History vertigo [facility] Other Reason for referral (narrative) Note Date & Type Note Facility Reason for referral (narrative) Diagnosis 1 MATTHIAS (generalized anx iety disorder) (F41.1) Referral Organization [facility] Referring Provider First Name Sheree Referring Provider Last Name Jonatan Referring Provider Specialty Nurse Practitioner Referred Provider Specialty Psychiatry Referral Priority Routine [email or web address] Other Summary Purpose Family History No Family History Records FoundNo Family History Records Found Advance Directives No Advanced Directives Records FoundNo Advanced Directives Records Found Additional Source Comments REASON FOR VISIT (unrecogniz ed section and content) 1 STEP PPD TEST AND WORK PHY SICALEstablish careLOST VOICE1 month Follow up INFORMATION SOURCE (unrecogn ized section and content) DATE CREATED AUTHOR 04/10/2022 [facility] DATE CREATED AUTHOR AUTHOR'S ORGANIZ ATION 08/13/[address] [facility] FOR RECORDS PERTAINING TO PATIENTS WHO ARE OR HAVE BEEN ENROLLED IN A CHEMICAL DEPENDENCY/SUBSTANCEABUSE PROGRAM, SOME INFORMATION MAY BE OMITTED. This clinical summary was aggregated from multiple sources. Caution should be exercised in using it in the provision of clinical care. This summary normalizes information from multiple sources, and as a consequence, information in this document may materially change the coding, format and clinical context of patient data. In addition, data may be omitted in some cases. CLINICAL DECISIONS SHOULD BE BASED ON THE PRIMARY CLINICAL RECORDS. [employer] [facility]. provides no warranty or guarantee of the accuracy or completeness of information in this document.
[2024-06-24 15:26] VITALS: BP 130/82
[2024-06-24 15:39] LABS: Bilirubin Urine NEGATIVE (NEGATIVE); Blood Urine NEGATIVE (NEGATIVE); Clarity Urine CLEAR (CLEAR); Color Urine LT. YELLOW (YELLOW); Glucose Urine UA NEGATIVE (NEGATIVE); Ketones Urine NEGATIVE (NEGATIVE); Leukocyte Esterase Urine TRACE (NEGATIVE); Nitrite Urine NEGATIVE (NEGATIVE); Protein Urine NEGATIVE (NEG/TRACE); Urobilinogen Urine 0.2 EU/dL (0.2-1.0)
[2024-06-24 15:42] LABS: HCG Qualitative Urine* POSITIVE (NEGATIVE); Internal Control Within Normal Limits; Urine Microscopic Indicated YES
[2024-06-24 15:53] LABS: Bacteria Urine TRACE #/HPF (NONE SEEN); Cast Seen? NONE SEEN #/LPF (NONE SEEN); Crystals Seen? None Seen #/HPF (None Seen); Mucus Urine NONE SEEN (NONE SEEN); RBC Urine NONE SEEN #/HPF (0-2); Squamous Epithelial Cell Urine FEW #/LPF (NONE/RARE); Urine Culture Indicated NO; WBC Urine 0-2 #/HPF (NONE SEEN)
[2024-06-24 16:17] LABS: HCG Quantitative 96 mIU/mL
[2024-06-24] MEDS: ONDANSETRON 4 MG RAPDIS TABLET SL (16:18)
--- NOTE | 2024-06-24 16:52 | ED_ITS ---
HPI - Abdominal Pain General Chief Complaint: Abdominal Pain Stated Complaint: cramping Time Seen by Provider: 06/24/24 15:24 Source: patient Mode of arrival: walk-in History of Present Illness HPI narrative: 18-year-old female presents here with chief complaint of nausea. She states she had a faintly positive test at home became nauseous at work. She has had no abdominal bleeding she says had cramping like she is going to start her menses. She is otherwise in no acute distress Related Data Home Medications ?Medication ?Instructions ?Recorded ?Confirmed sertraline 50 mg tablet 50 mg PO QPM 06/24/24 06/24/24 Previous Rx's ?Medication ?Instructions ?Recorded ondansetron 4 mg disintegrating 4 mg PO Q8H PRN nausea and 06/24/24 tablet vomiting 5 days #20 tabs Allergies Allergy/AdvReac Type Severity Reaction Status Date / Time amoxicillin Allergy Severe Rash Verified 03/08/23 16:29 Review of Systems ROS Narrative All Systems are negative except as noted/marked.All systems reviewed and otherwise negative PFSH PFS Social History Smoking status: Never smoker Little interest or pleasure in doing things: not at all Feeling down, depressed, or hopeless: not at all Exam Narrative Exam Narrative: Nurses note and vital signs reviewed and patient is not hypoxic. General: The patient appears well and in no apparent distress. Patient is resting comfortably on cart. Skin: Warm, dry, no pallor noted. There is no rash noted. Head: Normocephalic, atraumatic Eye: Normal conjunctiva, no drainage, EOMI. PERRL Ears, Nose, Mouth, and Throat: oral mucosa is moist. Nares patent. Mouth without vesicles. Ear canals patent. Tm's without Erythema Cardiovascular: Regular Rate and Rhythm Respiratory: Patient is in no distress, no accessory muscle use, lungs are clear to auscultation, no wheezing, rales or rhonchi Back: non-tender, no CVA tenderness bilaterally to percussion. GI: Normal bowel sounds, no tenderness to palpation, no masses appreciated. No rebound, guarding, or rigidity noted. Musculoskeletal: The patient has no evidence of calf tenderness, no pitting edema, symmetrical pulses noted bilaterally Neurological: A&O x4, normal speech Psychiatric: Cooperative Constitutional Vital Signs, click to edit/add: Last Vital Signs Temp 98.1 F 06/24/24 15:21 Pulse 88 06/24/24 15:21 Resp 18 06/24/24 15:21 BP 130/82 06/24/24 15:26 Pulse Ox 100 06/24/24 15:21 O2 Del Method Room Air 06/24/24 15:21 Course Vital Signs Vital signs: Vital Signs Temperature 98.1 F 06/24/24 15:21 Pulse Rate 88 06/24/24 15:21 Respiratory Rate 18 06/24/24 15:21 Pulse Oximetry 100 06/24/24 15:21 Oxygen Delivery Method Room Air 06/24/24 15:21 Temperature 98.1 F 06/24/24 15:21 Pulse Rate 88 06/24/24 15:21 Respiratory Rate 18 06/24/24 15:21 Blood Pressure 130/82 06/24/24 15:26 Pulse Oximetry 100 06/24/24 15:21 Oxygen Delivery Method Room Air 06/24/24 15:21 MDM - Abdominal Pain MDM Narrative Medical decision making narrative: -year-old presenting here chief complaint of abdominal cramping. She does have a positive test here with an hCG quant of 96. Patient will follow-up in Dr. Canales's office this next week repeat quant levels were given. Patient had no vaginal bleeding at this time. Repeat quant will be performed in 2 days and patient will follow-up with Dr. Canales. Patient given a small prescription of Zofran for her nausea. She is O+ blood type. 1 para 0 Differential Diagnosis Differential diagnosis: Likely abdominal pain and other Medical Records Attestation: I reviewed the patient's medical records. Lab Data Attestation: I reviewed the patient's lab results. Labs: Lab Results 06/24/24 06/24/24 Range/Units 15:25 15:49 HCG, Quant 96 mIU/mL Urine Color Lt. yellow (YELLOW) Urine Clarity Clear (CLEAR) Urine pH 6.0 (5.0-9.0) Ur Specific [place] 1.020 (1.005-1.025) Urine Protein Negative (NEG/TRACE) mg/dL Urine Glucose (UA) Negative (NEGATIVE) mg/dL Urine Ketones Negative (NEGATIVE) mg/dL Urine Occult Blood Negative (NEGATIVE) Urine Nitrite Negative (NEGATIVE) Urine Bilirubin Negative (NEGATIVE) Urine Urobilinogen 0.2 (0.2-1.0) EU/dL Ur Leukocyte Esterase Trace A (NEGATIVE) Urine RBC None seen (0-2) #/HPF Urine WBC 0-2 A (NONE SEEN) #/HPF Ur Squamous Epith Cells Few A (NONE/RARE) #/LPF Urine Crystals None seen (None Seen) #/HPF Urine Bacteria Trace A (NONE SEEN) #/HPF Urine Casts None seen (NONE SEEN) #/LPF Urine Mucus None seen (NONE SEEN) Ur Culture Indicated? No Urine HCG, Qual Positive A (NEGATIVE) Blood Type O Positive Discharge Plan Discharge Chief Complaint: Abdominal Pain Clinical Impression: Abdominal pain during in first trimester Patient Disposition: Home, Self-Care Time of Disposition Decision: 16:51 Condition: Good Prescriptions / Home Meds: New ondansetron 4 mg tablet,disintegrating 4 mg PO Q8H PRN (Reason: nausea and vomiting) 5 Days Qty: 20 0RF No Action sertraline 50 mg tablet 50 mg PO QPM Print Language: Belarusian Instructions: Abdominal Pain in (ED) Referrals: Cb Canales DO [Physician] - 06/26/24 (call office for appointment ) HAZEL GRADY [Primary Care Provider] - 1 week
== END 2024-06-24 16:58 | disposition home or self-care (01) ==
PROVIDERS: Physician Assistant; Emergency Provider Emergency Medicine; PCP Family Medicine
DX: O26.891 Other specified pregnancy related conditions, first trimester (principal); R10.9 Unspecified abdominal pain; Z3A.00 Weeks of gestation of pregnancy not specified
CPT/HCPCS: 36415; 81001; 84702; 84703; 86900; 86901; 99284; Q0162

== ENCOUNTER 2024-06-26 07:27 | Outpatient (OUT) | payer OTHER, SELFPAY ==
--- OUTSIDE RECORDS SUMMARY | 2024-06-26 07:36 | XMS_ITS | CCD ---
Author Organization [facility] CliniSymd Care Team Providers Care Academic Support Center Director Name Role Phone Almaz Huerta Unavailable HAZEL GRADY Primary Care Unavailable CHRISTIANO TATUM Attending Unavailable CHRISTIANO TATUM Consulting Unavailable CHRISTIANO TATUM Admitting Unavailable Sheree Cheung Unavailable Dom Sarmiento Attending Unavailable Tiesha Flood Unavailable Allergies Allergy Classification Reported Allergen(s) Allergy Type Date of Onset Reaction(s) Facility (5 sources) Amoxicillin; Translations: [amoxicillin] Drug Allergy [facility] Repository (1 source) Amoxicillin Drug Allergy 07-16-2016 [facility] Repository Medications Current Medications Medication Drug Class(es) [...] pyogenes Org specific cx Ql (Throat) positve [facility] Other Quick Strep [facility] Other Test, Urineon 08-11 Beta HCG ( test) Ql (U) Negative [facility]Control [facility] Other Capillary Glucose POCon Glucose [Mass/Vol] 94 mg/dL Normal 55-99 [facility] Comment on above: Result Comment: Loretta mcneal RN/ Performed By: #### 2 [id number] #### [facility] Laboratory [address] [place] [address] Consent for Treatmenton Consent for Treatment [id number] 0TIFF Normal [facility] Discharge Instructionson Discharge Instructions [id number] 0TIFF Normal [facility] ED Clinical Summaryon 2022 ED Clinical Summary [address] [address] ED Clinical Summary Person Information Name: JIMBO DOE/Antonino_Franco Age: 17 Years : 2005 Sex: Female Language: Wolof PCP: Lv WANG, Hazel Barajas Marital Status: [...] 07/14/2023 03:42:20 07/14/2023 03:42:20 07/14/2023 03:42:20 ADDRESS: [address] [place] [address] [address] [facility] [id number] PHYS DOC NOTES: MEDICAL INFORMATION: Prescriptions Given: New Medications [id number], [address], [place] [id number], [phone] azithromycin (azithromycin 250 mg Tab) 1 Tablets By Mouth every day for 4 Days. Refills: 0. PATIENT EDUCATION INFORMATION: Instructions: Viral Illness, Adult; Otitis Media, Adult Follow up: With: Address: When: Hazel Lv [address] [place], [place] [id number] Business (2) In 7 days 07/21/2023 DIAGNOSIS: AOM (acute otitis media); Viral illness Normal [facility] ED Note-Physicianon 07-14-20 ED Note-Physician Basic Information [...] and Complexity of Problems Differential Diagnosis: [] [facility] Data External documents reviewed: N/A My EKG [...] day(s), # 4 tab(s), Refills(s) 0, Pharmacy: [id number], 175, cm, 12/05/23 23:42:00 EST, Height/Length Dosing, 121.7, kg, 07/13/23 23:42:00 EST, Weight Dosing Capillary Glucose POC Influenza A&B Ag Rapid COVID Antigen [place] Resp.syn.virus (Rsv) XR Chest Single View Disposition Plan Discharge Prescription List Prescriptions azithromycin 250 mg Tab, 250 mg= 1 tab(s), Oral, Daily Follow-up With When Contact Information Hazel Grady In 7 days 07/21/2023 EST [address] [place] [address] [facility] (2) Additional Instructions: Patient Education Viral Illness, [...] 94 mg/dL (07/14/23 02:00:00) POC Device SN: [id number] (07/14/23 02:00:00) POC User ID: [id number] (07/14/23 02:00:00) POC Username: POC Username (07/14/23 [...] By: Dom Sarmiento DO 07/14/2023 01:56:22 Normal [facility] Comment on above: Result Comment: Elec tronically [...] Follow these instructions at home: ? Take abel-sxz-xpjhgfm and prescription medicines only as told by [...] provider. Document Revised: 11/03/2021 Document Reviewed: 11/03/2021 [employer] Patient Education ? 2022 [employer]. Infectious Disease Viral Illness, Adult Viruses are [...] cause illne (more content not included)... Normal [facility] ED Patient Summaryon 023 ED Patient Summary [address] [address] Patient Discharge Instructions Person Information Name: JIMBO DOE Age: 17 Years Arrival Date: 07/13/2023 23:32:13 Discharge Diagnosis: AOM (acute otitis media); Viral illness Primary Care Physician: Hazel Grady MD Provider Information Primary Provider: Dom Sarmiento DO Advanced Technical Services Assistant:None The exam and treatment you received in the Emergency Department were for an urgent problem and are not intended as complete care. It is important that you follow up with a doctor, nurse practitioner, or physician?s ob gyn physician assistant for ongoing care. If your symptoms become [...] Instructions: With: Address: When: [place] [address] Business (2) In 7 days [...] opioids can be used to help relieve ehkobvag-tv-kjkkth pain and are often prescribed following a [...] be struggling with addiction, tell your health patient care secretary and ask for guidance or call [facility]?S National Helpline at 2-497-095-BRDT. (more content not included)... Normal [facility] Influenza A&B Agon 3 Influenzae A Ag Negative Normal Negative [facility] Comment on above: Performed By: #### 2 [id number], [id number], [id number] #### [facility] Laboratory [address] [place] [address] Influenzae B Ag Negative Normal Negative [facility] Comment on above: Result Comment: Test sensitivity and specificity vary for age group, specimen type, antigen types, and prevalence of disease. Test results must be evaluated in conjunction with other clinical data available to the physician. Individuals who received nasally administered Influenza A vaccine may have positive test results up to 3 days after vaccination. Performed By: #### 2 [id number], [id number], [id number] #### [facility] [address] [place] [address] Prescriptions/Work Noteson 1 09-14-2022 Prescriptions/Work Notes [id number] 0TIFF Normal [facility] Rapid COVID Antigen ([facility])on 07-14-2023 Rapid COV Int NEG Ctl Pass Normal [facility] Comment on above: Performed By: #### 2 [id number], [id number], [id number] #### [facility] [address] [place] [address] Rapid COV Int POS Ctl Pass Normal [facility] Comment on above: Performed By: #### 2 [id number] #### [facility] [address] [place] [address] SARS-CoV+SARS-CoV-2 (COVID-19) Ag IA.rapid Ql (Resp) Not detected Normal Not Detected [facility] Comment on above: Result Comment: The [employer]? System for Rapid Detection of SARS-CoV-2 is [...] or revoked sooner. Performed By: #### 2 [id number], [id number], [id number] #### [facility] [address] [place] [address] Resp.syn.virus (Rsv)on 07-14 RSV Ag IA.rapid Ql (Nph) Negative Normal Negative [facility] Comment on above: Performed By: #### 2 [id number], [id number] #### [facility] [address] [place] [address] XR Chest Single Viewon 07-14 XR Chest [...] mGy = na DAP = na Normal [facility]son 12-24-2022 Forms [id number] 0CD:127 Normal [facility] Vital Signs Date Time Vital Sign Value Performing Clinician Facility 09-17-2023 09:35-0500 Body height 175.26 cm Tiesha Flood Other [facility] Other 09-17-2023 09:35-0500 Body mass index (BMI) [Ratio] 40.16 kg/m2 Tiesha Flood Other [facility] Other 09-17-2023 09:35-0500 Body temperature 99.2 [degF] Tiesha Flood Other [facility] Other 09-17-2023 09:35-0500 Body weight 123.38 kg Tiesha Flood Other [facility] Other 09-17-2023 09:35-0500 Respiratory rate 18 /min Tiesha Flood Other [facility] Other 09-17-2023 09:35-0500 SaO2% (BldA) [Mass fraction] 97 % Tiesha Folod Other [facility] Other 09-02-2023 09:30-0500 Body height 175.26 cm Sheree Cheung Other [facility] Other 09-02-2023 09:30-0500 Body mass index (BMI) [Ratio] 40.21 kg/m2 Sheree Cheung Other [facility] Other 09-02-2023 09:30-0500 Body weight 123.52 kg Sheree Cheung Other [facility] Other 09-02-2023 09:30-0500 Diastolic blood pressure 78 mm[Hg] Sheree Cheung Other [facility] Other 09-02-2023 09:30-0500 Respiratory rate 18 /min Sheree Cheung Other [facility] Other 09-02-2023 09:30-0500 SaO2% (BldA) [Mass fraction] 97 % Sheree Cheung Other [facility] Other 09-02-2023 09:30-0500 Systolic blood pressure 120 mm[Hg] Sheree Cheung Other [facility] Other 07-27-2023 09:30-0500 Body height 175.26 cm Sheree Cheung Other [facility] Other 07-27-2023 09:30-0500 Body mass index (BMI) [Ratio] 40.02 kg/m2 Sheree Jonatan Other [facility] Other 07-27-2023 09:30-0500 Body weight 122.93 kg Sheree Jonatan Other [facility] Other 07-27-2023 09:30-0500 Diastolic blood pressure 76 mm[Hg] Sheree Cheung Other [facility] Other 07-27-2023 09:30-0500 Respiratory rate 16 /min Sheree Jonatan Other [facility] Other 07-27-2023 09:30-0500 SaO2% (BldA) [Mass fraction] 98 % Sheree Cheung Other [facility] Other 07-27-2023 09:30-0500 Systolic blood pressure 120 mm[Hg] Sheree Cheung Other [facility] Other 01-21-2022 15:35-0400 Body height 175.26 cm Almaz Huerta Other [facility] Other 01-21-2022 15:35-0400 Body mass index (BMI) [Ratio] 30.86 kg/m2 Almaz Huerta Other [facility] Other 01-21-2022 15:35-0400 Body temperature 97.3 [degF] Almaz Huerta Other [facility] Other 01-21-2022 15:35-0400 Body weight 94.8 kg Almaz Huerta Other [facility] Other 01-21-2022 15:35-0400 Diastolic blood pressure 73 mm[Hg] Almaz Huerta Other [facility] Other 01-21-2022 15:35-0400 Respiratory rate 16 /min Almaz Huerta Other [facility] Other 01-21-2022 15:35-0400 SaO2% (BldA) [Mass fraction] 97 % Almaz Huerta Other [facility] Other 01-21-2022 15:35-0400 Systolic blood pressure 133 mm[Hg] Almaz Huerta Other [facility] Other Encounters Encounter Date Encounter Type Care Provider Facility Start: 09-17-2023 End: 09-17-2023 ambulatory Tiesha Flood Other [facility] Other Start: 09-17-2023 Office outpatient vi sit 15 minutes Tiesha Flood [facility] [place] Start: 09-02-2023 End: 09-02-2023 ambulatory Sheree Cheung Other [facility] Other Start: 09-02-2023 Office outpatient vi sit 25 minutes Sheree Cheung [facility] [place] Start: 07-27-2023 End: 07-27-2023 ambulatory Sheree Cheung Other [facility] Other Start: 07-27-2023 Encounter for genera l adult medical examination without abnormal findings Sheree Cheung [facility] [place] Start: 07-27-2023 Initial preventive medicine new pt age 18-39yrs Sheree Cheung [facility] [place] Start: 07-14-2023 End: 07-14-2023 Emergency department patient visit Dom SFreya Sarmiento Facility[place] Start: 12-24-2022 ambulatory Dom Sarmiento Facility: [facility] Start: 04-06-2022 End: 04-06-2022 ambulatory HAZEL GRADY Facility: Start: 01-21-2022 (URG) Urgent Care Visit Almaz romero [facility] [place] Start: 01-21-2022 End: 01-21-2022 ambulatory Almazjordon Huerta Other [facility] Other Immunizations Immunization Date Immunization Notes Care Provider Chase sequeira 03-17-2021 Human Papillomavirus 9-valent vaccine Almaz Deanna Other [facility] Other 02-10-2021 Do not use COVID-19 Pfizer 2 dose Almaz Deanna Other [facility] Other 08-04-2016 Human Papillomavirus 9-valent vaccine Almaz Deanna Other [facility] Other 05-22-2016 Human Papillomavirus 9-valent vaccine Almaz Deanna Other [facility] Other 07-29-2015 hepatitis A vaccine, pediatric/adolescent dosage, 2 dose schedule Almaz Deanna Other [facility] Other 04-02-2007 hepatitis A vaccine, pediatric/adolescent dosage, 2 dose schedule Almaz Deanna Other [facility] Other 04-14-2005 diphtheria, tetanus toxoids and acellular pertussis vaccine, 5 pertussis antigens Almaz Deanna Other [facility] Other 10-09-2004 measles, mumps and rubella virus vaccine Almaz Deanna Other [facility] Other 04-21-2004 DTaP-hepatitis B and poliovirus vaccine Almaz Deanna Other [facility] Other 04-21-2004 haemophilus influenz ae type b vaccine, PRP-T conjugate Almaz Deanna Other [facility] Other 02-19-2004 DTaP-hepatitis B and poliovirus vaccine Almaz Deanna Other [facility] Other 02-19-2004 haemophilus influenz ae type b vaccine, PRP-T conjugate Almaz Deanna Other [facility] Other 2003 DTaP-hepatitis B and poliovirus vaccine Almaz Deanna Other [facility] Other 2003 haemophilus influenz ae type b vaccine, PRP-T conjugate Almaz Deanna Other [facility] Other 2003 hepatitis B vaccine, pediatric or pediatric/adolescent dosage Almaz Deanna Other [facility] Other Payers Date Payer Category Payer Private Health Insurance 2005 Unknown [id number] 1961 Unknown [id number] 1961 Unknown [id number] 1961 Unknown [id number] Social History Date Type Detail Facility Unknown if ever smoked [facility] Other Sex Assigned At Sex Assigned At Bir th [facility] Other Evaluation note 09-17-2023 Note Date & [...] understanding and is agreeable to treatment plan. [facility] Other Evaluation note 09-02-2023 Note Date & [...] of any breach, fraud, or malicious third democrat actors and no personal patient information was compromised. [facility] Other Evaluation note 07-27-2023 Note Date & [...] (ICD-10 - F32.1) See above treatment plan. [facility] Other Evaluation note 01-21-2022 Note Date & Type Note Facility 01-21-2022 Evaluation note Encounter Date Diagnosis Assessment Notes Jan, Pre-employment examination (ICD-10 - Z02.1) [facility] Other History general Narrative - Reported Note Date & Type Note Facility History general Narrative - Reported Type Medical History vertigo [facility] Other Reason for referral (narrative) Note Date & Type Note Facility Reason for referral (narrative) Diagnosis 1 MATTHIAS (generalized anx iety disorder) (F41.1) Referral Organization [facility] Referring Provider First Name Sheree Referring Provider Last Name Jonatan Referring Provider Specialty Nurse Practitioner Referred Provider Specialty Psychiatry Referral Priority Routine [place] [employer] Other Summary Purpose Family History No Family [...] DATE CREATED AUTHOR AUTHOR'S ORGANIZ ATION 08/13/2023 [facility] FOR RECORDS PERTAINING TO PATIENTS WHO ARE [...] BE BASED ON THE PRIMARY CLINICAL RECORDS. [employer] [facility]. provides no warranty or guarantee of the accuracy or completeness of information in this document.
[2024-06-26 08:30] LABS: HCG Quantitative 203 mIU/mL
== END 2024-06-26 07:28 | disposition home or self-care (01) ==
LOC: LAB 07:29
PROVIDERS: PCP Family Medicine; Visit Provider Physician Assistant
DX: O02.81 Inappropriate change in quantitative human chorionic gonadotropin (hCG) in early pregnancy (principal)
CPT/HCPCS: 36415; 84702

== ENCOUNTER 2024-07-18 10:04 | Outpatient (OUT) | payer OTHER, SELFPAY ==
--- NOTE | 2024-07-18 10:05 | US_ITS ---
[place] [id number] Patient Name: JIMBO DOE MRN: [id number] date: 2005 Sex: F Assigned Patient Location: [facility] Current Patient Location: Accession/Order Number: [id number] Exam Date: 07/18/2024 10:06 Report Date: 07/19/2024 04:28 At the request of: YOGESH CALI Procedure: US OB transvaginal EXAMINATION: US OB transvaginal HISTORY: MISSED MENSES COMPARISON: No relevant comparison available. FINDINGS: GESTATIONAL SAC: Present and normal appearing. YOLK SAC: Present and normal appearing. POLE: Present and normal appearing. CARDIAC: Present. UTERUS: Normal size and appearance. OVARIES: Right: Normal. Left: Corpus lutein cyst. CERVIX: 3.8 cm in length and closed. CUL-DE-SAC: Normal. OTHER: None. AGE BY LMP: 10 weeks 0 days MONIQUE BY LMP: 02/25/2025 AGE BY US CRL: 7 weeks 3 days MONIQUE BY US CRL: 03/03/2025 US/US OB transvaginal IMPRESSION: 1. Single live intrauterine . Electronically authenticated by: DAMON CASTANEDA Date: 07/19/2024 04:28
== END 2024-07-18 10:05 | disposition home or self-care (01) ==
LOC: NOMS 10:04
PROVIDERS: PCP Family Medicine; Visit Provider Obstetrics & Gynecology
DX: Z34.91 Encounter for supervision of normal pregnancy, unspecified, first trimester (principal); Z3A.10 10 weeks gestation of pregnancy; N92.6 Irregular menstruation, unspecified
CPT/HCPCS: 76817

== ENCOUNTER 2024-08-05 10:55 | Outpatient (OUT) | payer OTHER, SELFPAY ==
--- OUTSIDE RECORDS SUMMARY | 2024-08-05 11:00 | XMS_ITS | CCD ---
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 Repository (1 source) Amoxicillin Drug Allergy 6 [facility] Repository Medications Current Medications Medication Drug Class(es) [...] a day for 28 day(s) Aug, Active ondansetron 4 mg disintegrating oral tablet (1 source) Serotonin-3 Receptor Antagonist Start: 07-18-2024 End: 08-17-2024 take 1 tablet by mouth every six hours for nausea ondansetron ODT (Zofran-ODT) 4 MG disintegrating tablet Indications: Nausea and vomiting in Take 1 tablet (4 mg) by mouth every 6 (six) hours if needed for nausea or vomiting 30 tablet 2 07/18/2024 08/17/2024 Active sertraline 50 mg oral tablet (3 [...] for initial prescription of contraceptive pills Episodic Menstrual disorders (1 source) Missed period; Translations: [Irregular menstruation, unspecified] 07-18-2024 Chronic Mood disorders (5 sources) Moderate major depression ; Translations: [Major depressive disorder, single episode, moderate] Chronic Other complications of (1 source) Vomiting of , unspecified; Translations: [Unspecified vomiting of , unspecified as to episode of care or not applicable] 07-18-2024 Episodic Other and delivery including normal (2 sources) ; Translations: [Encounter for supervision of normal , unspecified, unspecified trimester] 07-18-2024 Episodic Other upper respiratory disease (3 sources) Nasal [...] Test Name Value Interpretation Reference Range Facility HCG ( test) Ql (U)o n 07-18-2024 Interpretation and review of laboratory results Abnormal [facility] Preg Test, Ur Positive Negative [facility] Health care [facility] Urinalysis macro (dipstick) panel (U)on 07-18-2024 Bilirubin, UA Negative Negative - 4(70) +++ mg/dL [facility] Blood, UA Negative Negative - 50 Sam/mcL [facility] Healthcare Clarity, UA Clear [facility] re Color, UA Yellow [facility] Glucose, UA Negative Negative - 1999(110) ++++ mg/dL [facility] Interpretation and review of laboratory results Normal [facility] re Ketones, UA Negative Negative - 160(16) ++++ mg/dL [facility] Leukocytes, UA Negative Negative - 500+++ Supa/mcL [facility] Nitrite, UA Negative Negative - Positive [facility] pH, UA 6.5 5 - 9 [facility] e Protein, UA Negative Negative - 1999(20) ++++ mg/dL [facility] Spec Grav, UA 1.02 1 - 1.03 [facility] Urobilinogen, UA 0.2 0.2 - 12 mg/dL [facility] PREG QUANT HCGon 024 HCG QUANTITATIVE 203 mIU/mL [facility] Comment on above: 5-50 0.2-1 WEEK 50-500 1-2 WEEKS 100-5,000 2-3 WEEKS 500-10,000 3-4 WEEKS 1,000-50,000 4-5 WEEKS 10,000-100,000 5-6 WEEKS 15,000-200,000 6-8 WEEKS 10,000-100,000 2-3 MONTHS [facility] Quick Strepon 09-17-2023 S. pyogenes Org specific cx Ql (Throat) positve [employer] Other Quick Strep [employer] [facility] [employer] Other Test, Urineon 08-11 Beta HCG ( test) Ql (U) Negative [employer] Other Capillary Glucose POCon Glucose [Mass/Vol] 94 mg/dL Normal 55-99 [facility] Comment on above: Result Comment: Loretta mcneal RN/ Performed By: #### 2 [id number] #### [facility] Laboratory [address] [place] [address] Consent for Treatmenton Consent for Treatment [id number] [facility] Discharge Instructionson Discharge Instructions [id number] [facility] ED Clinical Summaryon 2022 ED Clinical Summary [address] [address] ED Clinical Summary Person Information Name: FRANCES DOE/New_Franco Age: 17 Years : 2005 Sex: Female Language: Rwandan PCP: Hazel Grady MD Marital Status: Single Visit Id: Visit Reason: [...] 07/14/2023 03:42:20 07/14/2023 03:42:20 07/14/2023 03:42:20 ADDRESS: [address] [place] [address] DR MONSERRAT Berg [facility] [id number] PHYS DOC NOTES: MEDICAL INFORMATION: Prescriptions Given: New Medications [id number], [address], [place] [id number], [phone] azithromycin (azithromycin 250 mg Tab) 1 Tablets By Mouth every day for 4 Days. Refills: 0. PATIENT EDUCATION INFORMATION: Instructions: Viral Illness, Adult; Otitis Media, Adult Follow up: With: Address: When: Hazel Grady [address] [place], [place] [id number] Business (2) In 7 days 07/21/2023 DIAGNOSIS: AOM (acute otitis media); Viral illness Normal [facility] ED Note-Physicianon 07-14-20 ED Note-Physician Basic Information [...] and Complexity of Problems Differential Diagnosis: [] [facility] Data External documents reviewed: N/A My EKG [...] day(s), # 4 tab(s), Refills(s) 0, Pharmacy: [id number], 175, cm, 07/13/23 23:42:00 EST, Height/Length Dosing, 121.7, kg, 07/13/23 23:42:00 EST, Weight Dosing Capillary Glucose POC Influenza A&B Ag Rapid COVID Antigen ([facility]) Resp.syn.virus (Rsv) XR Chest Single View Disposition Plan Discharge Prescription List Prescriptions azithromycin 250 mg Tab, 250 mg= 1 tab(s), Oral, Daily Follow-up With When Contact Information Hazel Grady In 7 days 07/21/2023 EST [address] [place] [id number] [facility] (2) Additional Instructions: Patient Education [...] 94 mg/dL (07/14/23 02:00:00) POC Device SN: [id number] (07/14/23 02:00:00) POC User ID: [id number] (07/14/23 02:00:00) POC Username: POC Username (07/14/23 [...] By: Dom Sarmiento DO 07/14/2023 01:56:[address] [facility] Comment on above: Result Comment: Elec tronically [...] Follow these instructions at home: ? Take bimt-mjr-[id number] and prescription medicines only as told by [...] provider. Document Revised: 11/03/2021 Document Reviewed: 11/03/2021 Elsevier Patient Education ? 2022 [employer] Infectious Disease Viral Illness, Adult Viruses are [...] cause illne (more content not included)... Normal [facility] ED Patient Summaryon 023 ED Patient Summary [place] [id number] Patient Discharge Instructions Person Information Name: FRANCES DOE Age: 17 Years Arrival Date: 07/13/2023 23:32:13 Discharge Diagnosis: AOM (acute otitis media); Viral illness Primary Care Physician: Hazel Grady MD Provider Information Primary Provider: Dom Sarmiento DO Advanced Senior Scrum Master:None The exam and treatment you received in the Emergency Department were for an urgent problem and are not intended as complete care. It is important that you follow up with a doctor, nurse practitioner, or physician?s warehouse assistant for ongoing care. If your symptoms become worse or you do not improve as expected and you are unable to reach your usual health care provider, you should return to the Emergency Department. We are available 24 hours a day. FRANCES DOE has been given the following list of patient education materials, prescriptions and follow-up instructions: Follow-up Instructions: With: Address: When: Hazel Grady [address] [place] [address] Business (2) In 7 days 07/21/2023 In the event that this physician does not participate in your insurance network, please consult with your insurance company to find a nearby participating provider. Patient Education Materials: Viral Illness, Adult; Otitis Media, Adult A MESSAGE TO ALL PATIENTS REGARDING OPIOIDS PRESCRIPTION OPIOIDS: WHAT YOU NEED TO KNOW Prescription opioids can be used to help relieve zuajtiuy-xb-hfdtij pain and are often prescribed following a [...] be struggling with addiction, tell your health healthcare specialist and ask for guidance or call [employer]?S National Helpline at 0-189-609-IOSZ. (more content not included)... Normal [facility] Influenza A&B Agon 3 Influenzae A Ag Negative Normal Negative [facility] Comment on above: Performed By: #### 2 [id number] #### [facility] Laboratory [address] [place] [address] Influenzae B Ag Negative Normal Negative [facility] Comment on above: Result Comment: Test sensitivity and specificity vary for age group, specimen type, antigen types, and prevalence of disease. Test results must be evaluated in conjunction with other clinical data available to the physician. Individuals who received nasally administered Influenza A vaccine may have positive test results up to 3 days after vaccination. Performed By: #### 2 [id number], [id number] #### [facility] [address] [place] [address] Prescriptions/Work Noteson 1 09-14-2022 Prescriptions/Work Notes [id number] [facility] Rapid COVID Antigen ([facility])on 07-14-2023 Rapid COV Int NEG Ctl Pass Normal [facility] Comment on above: Performed By: #### 2 [id number], [id number] #### [facility] [address] [place] [address] Rapid COV Int POS Ctl Pass Normal [facility] Comment on above: Performed By: #### 2 [id number] #### [facility] [address] [place] [address] SARS-CoV+SARS-CoV-2 (COVID-19) Ag IA.rapid Ql (Resp) Not detected Normal Not Detected [facility] Comment on above: Result Comment: The Sprio Veritor? System for Rapid Detection of SARS-CoV-2 is [...] in patient care settings operating under a [place] Certificate of Waiver, Certificate of Compliance, or Certificate of Accreditation. This test has been authorized only for the detection of proteins from SARS-CoV-2, not for any other viruses or pathogens; and, in the [facility], this test is only authorized for the duration of the declaration that circumstances exist justifying the authorization of emergency use of in vitro diagnostics for detection and/or diagnosis of the virus that causes COVID-19 under Section 564(b)(1) of the Act, 21 U.S.C. ? 360bbb-3(b)(1), unless the authorization is terminated or revoked sooner. Performed By: #### 2 [id number], [id number] #### [facility] [address] [place] [address] Resp.syn.virus (Rsv)on 07-14 RSV Ag IA.rapid Ql (Nph) Negative Normal Negative [facility] Comment on above: Performed By: #### 2 [id number] #### [facility] [address] [place] [address] XR Chest Single Viewon 07-14 XR Chest [...] mGy = na DAP = na Normal [facility] [employer]son 12-24-2022 Forms [id number] 0CD:[id number] [facility] Vital Signs Date Time Vital Sign Value Performing Clinician Facility 07-18-2024 11:15-0500 Body weight 139.71 kg [facility] Nurse [facility] 07-18-2024 11:15-0500 Diastolic blood pressure 74 mm[Hg] [facility] 07-18-2024 11:15-0500 Systolic blood pressure 118 mm[Hg] [facility] Nurse [facility] 09-17-2023 09:35-0500 Body height 175.26 cm Tiesha Flood Other [employer] Other 09-17-2023 09:35-0500 Body mass index (BMI) [Ratio] 40.16 kg/m2 Tiesha Flood Other [employer] Other 09-17-2023 09:35-0500 Body temperature 99.2 [degF] Tiesha Flood Other [employer] Other 09-17-2023 09:35-0500 Body weight 123.38 kg Tiesha Flood Other [employer] Other 09-17-2023 09:35-0500 Respiratory rate 18 /min Tiesha Flood Other [employer] Other 09-17-2023 09:35-0500 SaO2% (BldA) [Mass fraction] 97 % Tiesha Flood Other [employer] Other 09-02-2023 09:30-0500 Body height 175.26 cm Sheree Cheung Other [employer] Other 09-02-2023 09:30-0500 Body mass index (BMI) [Ratio] 40.21 kg/m2 Sheree Cheung Other [employer] Other 09-02-2023 09:30-0500 Body weight 123.52 kg Sheree Cheung Other [employer] Other 09-02-2023 09:30-0500 Diastolic blood pressure 78 mm[Hg] Sheree Cheung Other [employer] Other 09-02-2023 09:30-0500 Respiratory rate 18 /min Sheree Cheung Other [employer] Other 09-02-2023 09:30-0500 SaO2% (BldA) [Mass fraction] 97 % Sheree Cheung Other [employer] Other 09-02-2023 09:30-0500 Systolic blood pressure 120 mm[Hg] Sheree Cheung Other [employer] Other 07-27-2023 09:30-0500 Body height 175.26 cm Sheree Cheung Other [employer] Other 07-27-2023 09:30-0500 Body mass index (BMI) [Ratio] 40.02 kg/m2 Sheree Cheung Other [employer] Other 07-27-2023 09:30-0500 Body weight 122.93 kg Sheree Cheung Other [employer] Other 07-27-2023 09:30-0500 Diastolic blood pressure 76 mm[Hg] Sheree Cheung Other [employer] Other 07-27-2023 09:30-0500 Respiratory rate 16 /min Sheree Cheung Other [employer] Other 07-27-2023 09:30-0500 SaO2% (BldA) [Mass fraction] 98 % Sheree Cheung Other [employer] Other 07-27-2023 09:30-0500 Systolic blood pressure 120 mm[Hg] Sheree Cheung Other [employer] Other 01-21-2022 15:35-0400 Body height 175.26 cm Almaz Deanna Other [employer] Other 01-21-2022 15:35-0400 Body mass index (BMI) [Ratio] 30.86 kg/m2 Almaz Deanna Other [employer] Other 01-21-2022 15:35-0400 Body temperature 97.3 [degF] Almaz Deanna Other [employer] Other 01-21-2022 15:35-0400 Body weight 94.8 kg Almaz Deanna Other [employer] Other 01-21-2022 15:35-0400 Diastolic blood pressure 73 mm[Hg] Almaz Deanna Other [employer] Other 01-21-2022 15:35-0400 Respiratory rate 16 /min Almaz Deanna Other [employer] Other 01-21-2022 15:35-0400 SaO2% (BldA) [Mass fraction] 97 % Almaz Deanna Other [employer] Other 01-21-2022 15:35-0400 Systolic blood pressure 133 mm[Hg] Almaz Deanna Other [employer] Other Encounters Encounter Date Encounter Type Care Provider Facility Start: 07-18-2024 End: 07-18-2024 ambulatory [facility] Ob Ally Nurse Not Available Comment on above: GA: 7w3d Start: 06-26-2024 End: 06-26-2024 [facility] Result Encounter Maryanne Miesha FOWLER Work Phone: [facility] Unsolicited Start: 06-26-2024 End: 06-26-2024 [facility] Result Encounter Maryanne Miesha FOWLER Work Phone: [facility] Unsolicited Start: 09-17-2023 End: 09-17-2023 ambulatory Tiesha Flood Other [employer] Other Start: 09-17-2023 Office outpatient vi sit 15 minutes Tiesha Flood [facility] Start: 09-02-2023 End: 09-02-2023 ambulatory Sheree Cheung Other [employer] Other Start: 09-02-2023 Office outpatient vi sit 25 minutes Sheree Cheung [facility] [place] Start: 07-27-2023 End: 07-27-2023 ambulatory Sheree Cheung Other [employer] Other Start: 07-27-2023 Encounter for genera l adult medical examination without abnormal findings Sheree Cheung [facility] [place] Start: 07-27-2023 Initial preventive medicine new pt age 18-39yrs Sheree Cheung [facility] [place] Start: 07-14-2023 End: 07-14-2023 Emergency department patient visit Dom Sarmiento Facility:[facility] Start: 12-24-2022 ambulatory Dom Sarmiento Facility: [facility] Start: 04-06-2022 End: 04-06-2022 ambulatory HAZEL GRADY Facility: Start: 01-21-2022 (URG) Urgent Care Visit Almaz Dymon d [facility] Start: 01-21-2022 End: 01-21-2022 ambulatory Almaz Huerta Other [employer] Other Procedures Date Procedure Procedure Detail Performing Clinician Start: 07-18-2024 End: 07-18-2024 Urnls dip stick/tablet rgnt non-auto w/o micrscp Cb Canales DO Work Phone: Start: 06-26-2024 [facility] PREG QUANT HCG Maryanne FOWLER Work Phone: Plan of Treatment Date Care Activity Detail Author Start: 08-17-2024 End: 08-17-2024 Patient encounter procedure 08/17/2024 11:20 AM EST Routine [facility] OB [address] [place] [address] AllyCb noyola, DO [address] [place] [address] [facility] OB Start: 07-18-2024 End: 07-18-2025 ABO/Rh ABO/Rh Lab Routine Missed menses , unspecified gestational age Expected: 07/18/2024 (Approximate), Expires: 07/18/2025 [facility] Comment on above: Expected: 07/18/2024 (Approximate), Expires: 07/18/2025 Start: 07-18-2024 End: 07-18-2025 Blood type and Indirect antibody screen panel - Blood Type and screen Lab Routine Missed menses , unspecified gestational age Expected: 07/18/2024 (Approximate), Expires: 07/18/2025 [facility] Work Phone: Comment on above: Expected: 07/18/2024 (Approximate), Expires: 07/18/2025 Start: 07-18-2024 End: 07-18-2025 Drugs of abuse panel - Urine by Screen method Rapid drug screen, urine Lab Routine , unspecified gestational age Encounter for supervision of normal first in first trimester Expected: 07/18/2024 (Approximate), Expires: 07/18/2025 [facility] Comment on above: Expected: 07/18/2024 (Approximate), Expires: 07/18/2025 Start: 07-18-2024 End: 07-18-2025 US Pelvis transvaginal US OB transvaginal Imaging Routine Missed menses Expected: 07/18/2024 (Approximate), Expires: 07/18/2025 [facility] Comment on above: Expected: 07/18/2024 (Approximate), Expires: 07/18/2025 Start: 07-18-2024 End: 07-18-2024 ambulatory 07/18/2024 10:30 AM EST Initial [facility] [address] [place] [address] [facility] OB Start: 07-18-2024 End: 07-18-2024 Professional / ancillary services management 07/18/2024 10:00 AM EST Ancillary Procedure [facility] [address] [place] [address] [facility] OB Bacteria identified in Urine by Culture Urine culture Microbiology Routine Missed menses Ordered: 07/18/2024 [facility] Comment on above: Ordered: 07/18/2024 CBC W Auto Different ial panel - Blood CBC and differential Lab Routine Missed menses , unspecified gestational age Ordered: 07/18/2024 [facility] Comment on above: Ordered: 07/18/2024 Hemoglobin A1c/Hemoglobin.total in Blood Hemoglobin A1c Lab Routine Missed menses , unspecified gestational age Ordered: 07/18/2024 [facility] Comment on above: Ordered: 07/18/2024 Hepatitis B virus surface Ag [Presence] in Serum or Plasma by Immunoassay Hepatitis B surface antigen Lab Routine Missed menses , unspecified gestational age Ordered: 07/18/2024 [facility] Comment on above: Ordered: 07/18/2024 Hepatitis C virus Ab [Presence] in Serum or Plasma by Immunoassay Hepatitis C antibody Lab Routine Missed menses , unspecified gestational age Ordered: 07/18/2024 [facility] Comment on above: Ordered: 07/18/2024 HIV-1/HIV-2 antigen/antibody combination immunoassay HIV-1 and HIV-2 antibodies Lab Routine Missed menses , unspecified gestational age Ordered: 07/18/2024 [facility] Comment on above: Ordered: 07/18/2024 Reagin Ab [Presence] in Serum by RPR RPR Lab Routine Missed menses , unspecified gestational age Ordered: 07/18/2024 [facility] Comment on above: Ordered: 07/18/2024 Rubella antibody, IgG Rubella an tibody, IgG Lab Routine Missed menses , unspecified gestational age Ordered: 07/18/2024 [facility] Comment on above: Ordered: 07/18/2024 Immunizations Immunization Date Immunization Notes Care Provider Chase sequeira 03-17-2021 Human Papillomavirus 9-valent vaccine Almaz Deanna Other [employer] Other 02-10-2021 Do not use COVID-19 Pfizer 2 dose Almaz Deanna Other [employer] Other 08-04-2016 Human Papillomavirus 9-valent vaccine Almaz Deanna Other [employer] Other 05-22-2016 Human Papillomavirus 9-valent vaccine Almaz Deanna Other [employer] Other 07-29-2015 hepatitis A vaccine, pediatric/adolescent dosage, 2 dose schedule Almaz Deanna Other [employer] Other 04-02-2007 hepatitis A vaccine, pediatric/adolescent dosage, 2 dose schedule Almaz Deanna Other [employer] Other 04-14-2005 diphtheria, tetanus toxoids and acellular pertussis vaccine, 5 pertussis antigens Almaz Deanna Other [employer] Other 10-09-2004 measles, mumps and rubella virus vaccine Almaz Deanna Other [employer] Other 04-21-2004 DTaP-hepatitis B and poliovirus vaccine Almaz Deanna Other [employer] Other 04-21-2004 haemophilus influenz ae type b vaccine, PRP-T conjugate Almaz Deanna Other [employer] Other 02-19-2004 DTaP-hepatitis B and poliovirus vaccine Almaz Deanna Other [employer] Other 02-19-2004 haemophilus influenz ae type b vaccine, PRP-T conjugate Almaz Deanna Other [employer] Other 2003 DTaP-hepatitis B and poliovirus vaccine Almaz Deanna Other [employer] Other 2003 haemophilus influenz ae type b vaccine, PRP-T conjugate Almaz Deanna Other [employer] Other 2003 hepatitis B vaccine, pediatric or pediatric/adolescent dosage Almaz Deanna Other [employer] Other Payers Date Payer Category Payer Private Health Insurance 2003 Unknown [id number] 2003 Unknown [id number] 1959 Unknown [id number] 1961 Unknown [id number] 1959 Unknown [id number] Social History Date Type Detail Facility Unknown if ever smoked [employer] Other Sex Assigned At [employer] Other Tobacco smoking status MEIS Tobacco smoking consumption unknown [facility] Start: 2003 Sex assigned at Not on file [facility] Start: 06-10-2024 [facility] History of Present illness Narrative 07-18-2024 Jazmyne Oliveira MA - 07/18/2024 10:30 AM EST Note Date & Type Note Facility 07-18-2024 History of Presen t illness Narrative Reason for Appointment: Patient ID: Frances Doe is a 18 y.o. female who presents for No chief complaint on file. Patient presents today for a Nurse OB Intake appointment. Patient is 7w3d with a Estimated Date of Delivery: 03/03/25 OB History Para Term AB Living 1 SAB IAB Ectopic Multiple Live Births # Outcome Date GA Lbr Vel/2nd Weight Sex Type Anes PTL Lv 1 Current Current Medications: has a current medication list which includes the following prescription(s): ondansetron odt. Medical History: Active Ambulatory Problems Diagnosis Date Noted No Active Ambulatory Problems Resolved Ambulatory Problems Diagnosis Date Noted No Resolved Ambulatory Problems No Additional Past Medical History No family history on file. Social History Tobacco Use Smoking status: Not on file Smokeless tobacco: Not on file Substance Use Topics Alcohol use: Not on file Drug use: Not on file No past surgical history on file. Allergies Allergen Reactions Amoxicillin Rash Vitals: There is no height or weight on file to calculate BMI. BP: 118/74 Patient's last menstrual period was 05/09/2024. Assessment/Plan Diagnoses and all orders for this visit: Missed menses - Type and screen; Future - ABO/Rh; Future - CBC and differential - Hemoglobin A1c - RPR - Rubella antibody, IgG - Hepatitis B surface antigen - Hepatitis C antibody - HIV-1 and HIV-2 antibodies - Urine culture - US OB transvaginal; Future - POCT , urine manually resulted - POCT urinalysis dipstick manually resulted , unspecified gestational age - Type and screen; Future - ABO/Rh; Future - CBC and differential - Hemoglobin A1c - RPR - Rubella antibody, IgG - Hepatitis B surface antigen - Hepatitis C antibody - HIV-1 and HIV-2 antibodies - Rapid drug screen, urine; Future Encounter for supervision of normal first in first trimester - Rapid drug screen, urine; Future Nausea and vomiting in - ondansetron ODT (Zofran-ODT) 4 MG disintegrating tablet; Take 1 tablet (4 mg) by mouth every 6 (six) hours if needed for nausea or vomiting Nurse Note: OB Intake: Patient presents today for first OB visit. Patients history has been reviewed in great detail including any potential risks. Patient signed consent forms and patient desires testing in both trimesters. Patient currently has no complaints and has been advised to drink 6-8 glasses of water a day, eat no raw or undercooked meat, and stay away from [facility]. Patient has also been advised to not change litter boxes and eat 6 small meals a day. Patient has been consulted regarding the do's and don'ts of . Patient was given labs and all questions and concerns were answered. Follow Up: Patient is to return in 4 weeks for routine OB appointment. Follow Up: Patient is to have labs drawn at directed and return to office for initial OB appointment with provider. Patient may call office as needed with any concerns or questions. Nurse Visit Completed by: Jazmyne Oliveira MA documented in this encounter [facility] Evaluation note 09-17-2023 Note Date & Type [...] understanding and is agreeable to treatment plan. [employer] Other Evaluation note 09-02-2023 Note Date & [...] of any breach, fraud, or malicious third republican actors and no personal patient information was compromised. [employer] Other Evaluation note 07-27-2023 Note Date & [...] (ICD-10 - F32.1) See above treatment plan. [employer] Other Evaluation note 01-21-2022 Note Date & Type Note Facility 01-21-2022 Evaluation note Encounter Date Diagnosis Assessment Notes Jan, Pre-employment examination (ICD-10 - Z02.1) [employer] Other Evaluation note Note Date & Type Note Facility Evaluation note Diagnosis Missed menses , unspecified gestational age Encounter for supervision of normal first in first trimester Nausea and vomiting in Unspecified vomiting of , unspecified as to episode of care documented in this encounter [facility] History general Narrative - Reported Note Date & Type Note Facility History general Narrative - Reported Type Medical History vertigo [employer] Other Reason for referral (narrative) Note Date & Type Note Facility Reason for referral (narrative) Diagnosis 1 MATTHIAS (generalized anx iety disorder) (F41.1) Referral Organization [facility] Carolyne Wick Referring Provider First Name Sheree Referring Provider Last Name Jonatan Referring Provider Specialty Nurse Practitioner Referred Provider Specialty Psychiatry Referral Priority Routine [employer] Other Summary Purpose Family History No Family History Records FoundNo Family History Records FoundNo Family History Records Found Advance Directives No Advanced Directives Records FoundNo Advanced Directives Records FoundNo Advanced Directives Records Found Additional Source Comments REASON FOR VISIT (unrecogniz ed section and content) 1 STEP PPD TEST AND WORK PHY SICALEstablish careLOST VOICE1 month Follow up INFORMATION SOURCE (unrecogn ized section and content) DATE CREATED AUTHOR 04/10/2022 [facility] [facility] DATE CREATED AUTHOR AUTHOR'S ORGANIZ ATION 08/13/2023 Kyle Yang [facility] DATE CREATED AUTHOR AUTHOR'S ORGANIZ ATION 07/21/2024 [facility] Care Teams (unrecognized sec tion and content) [employer] 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 [email or web address] provides no warranty or guarantee of the accuracy or completeness of information in this document.
[2024-08-05 11:49] LABS: Estimated Average Glucose 111 mg/dL; Glycohemoglobin A1C 5.5 % (4.5-6.2)
[2024-08-05 11:58] LABS: Basophils Percent Auto 0.2 % (0.2-2.0); Eosinophils Percent Auto 0.3 % (0.9-7.0); Hematocrit 38.1 % (36.0-48.0); Hemoglobin 12.5 g/dL (12.0-16.0); Immature Granulocytes Abs Auto 0.02 10^3/uL (0.00-0.03); Immature Granulocytes Pct Auto 0.2 % (0.0-0.5); Lymphocytes Absolute Auto 1.9 10^3/uL (1.2-3.8); Lymphocytes Percent Auto 21.9 % (20.5-60.0); Mean Corpuscular HGB Conc 32.8 g/dL (29.9-35.2); Mean Corpuscular Hemoglobin 26.8 pg (26.7-34.0); Mean Corpuscular Volume 81.6 fL (81.0-99.0); Mean Platelet Volume 9.3 fL (9.5-13.5); Monocytes Absolute Auto 0.6 10^3/uL (0.3-0.8); Monocytes Percent Auto 6.9 % (1.7-12.0); Neutrophils Absolute Auto 6.2 10^3/uL (1.4-6.5); Neutrophils Percent Auto 70.5 % (43.0-75.0); Platelet Count 322 10^3/uL (150-450); Red Blood Count 4.67 10^6/uL (4.20-5.40); White Blood Count 8.8 10^3/uL (4.0-11.0)
[2024-08-05 12:10] LABS: Amphetamine Screen Urine NEGATIVE (NEGATIVE); Barbiturates Screen Urine NEGATIVE (NEGATIVE); Benzodiazepines Screen Urine NEGATIVE (NEGATIVE); Buprenorphine Screen Urine NEGATIVE (NEGATIVE); Cannabinoid Screen Urine NEGATIVE (NEGATIVE); Cocaine Screen Urine NEGATIVE (NEGATIVE); Methadone Screen Urine NEGATIVE (NEGATIVE); Methamphetamines Screen Urine NEGATIVE (NEGATIVE); Opiate Screen Urine NEGATIVE (NEGATIVE); Oxycodone Screen Urine NEGATIVE (NEGATIVE); Phencyclidine Screen Urine NEGATIVE (NEGATIVE); Tricyclic Antidepressant Urine NEGATIVE (NEGATIVE)
[2024-08-06 07:07] LABS: Rubella Antibodies, IgG 9.46 index (Immune >0.99)
[2024-08-06 08:07] LABS: HBsAg Screen Negative (Negative); HCV Ab Non Reactive (Non Reactive); Rapid Plasma Reagin, Quant Non Reactive titer (NonRea<1:1)
[2024-08-06 09:07] LABS: HIV Ab/p24 Ag Screen Non Reactive (Non Reactive)
[2024-08-08 09:38] LABS: BOX Test Reference Lab FIRELANDS
== END 2024-08-05 10:56 | disposition home or self-care (01) ==
LOC: LAB 10:58
PROVIDERS: PCP Family Medicine; Visit Provider Obstetrics & Gynecology
DX: Z34.01 Encounter for supervision of normal first pregnancy, first trimester (principal); N92.6 Irregular menstruation, unspecified
CPT/HCPCS: 36415; 80307; 83036; 85025; 86592; 86762; 86803; 86850; 86900; 86901; 87086; 87340; 87389

== ENCOUNTER 2024-09-03 13:09 | Emergency (ER) | payer OTHER, SELFPAY ==
--- OUTSIDE RECORDS SUMMARY | 2024-09-03 13:22 | XMS_ITS | CCD ---
Author Organization [facility] Care Team Providers Care Etl Programmer Name Role Phone Almaz Huerta Unavailable HAZEL GRADY Primary Care Unavailable CHRISTIANO TATUM Attending Unavailable CHRISTIANO TATUM Consulting Unavailable CHRISTIANO TATUM Admitting Unavailable Sheree Cheung Unavailable Dom Sarmiento Attending Unavailable Tiesha Flood Unavailable Unavailable Primary Care Provider UnavailHazel Young MD Primary Care Provider [phone] Sheree Cheung Primary Care Unavailable Yogesh Canales Attending Unavailable Yogesh Canales Admitting Unavailable YOGESH CANALES Attending Unavailable Allergies Allergy Classification Reported Allergen(s) Allergy Type Date of Onset Reaction(s) Facility (10 sources) Amoxicillin; Translations: [amoxicillin] Drug Allergy 4 swelling, Rash [facility] Repository (1 source) Amoxicillin Drug Allergy 6 [facility] Repository (1 source) Amoxicillin Drug Allergy 4 [facility] Repository Medications Current Medications Medication Drug Class(es) [...] a day for 28 day(s) Aug, Active magnesium oxide 400 mg oral tablet (2 sources) Start: 08-17-2024 End: 09-16-2024 take 1 tablet by mouth once daily magnesium oxide (Mag-Ox) 400 MG tablet Indications: headache, antepartum Take 1 tablet (400 mg) by mouth Daily 30 tablet 11 08/17/2024 09/16/2024 Active promethazine hydrochloride 12.5 mg oral tablet (2 sources) Phenothiazine Start: 08-17-2024 take 1 tablet by mouth every six hours as needed for nausea and vomiting and headache and headache promethazine (Phenergan) 12.5 MG tablet Indications: headache, antepartum Take 1 tablet (12.5 mg) by mouth every 6 (six) hours if needed for nausea or vomiting (headache) for up to 30 doses Take 1 tablet by mouth every 6 hours as needed for nausea. 30 tablet 2 08/17/2024 Active sertraline 50 mg oral tablet (5 sources) Serotonin Reuptake Inhibitor Start: 04-05-2024 take 1 tablet by mouth at bedtime sertraline (Zoloft) 50 MG tablet Take 50 mg by mouth at bedtime 04/05/2024 Active Start: 07-27-2023 take 1 tablet by shyann once daily Sertraline HCl 50 MG 1 tablet Orally Once a day at night for 30 days Jul, Active Completed/Discontinued Medications Medication Drug Class(es) Dates Sig (Normalized) Sig (Original) ondansetron 4 mg disintegrating oral tablet (5 sources) Serotonin-3 Receptor Antagonist Start: 07-18-2024 End: 08-17-2024 take 1 tablet by mouth every six hours for nausea ondansetron ODT (Zofran-ODT) 4 MG disintegrating tablet Indications: Nausea and vomiting in Take 1 tablet (4 mg) by mouth every 6 (six) hours if needed for nausea or vomiting 30 tablet 2 07/18/2024 08/17/2024 Problems Active Problems Problem Classification Problem Date [...] care or not applicable] 07-18-2024 Episodic Other complications of (2 sources) Headache; Translations: [Other specified related conditions, unspecified trimester] 08-17-2024 Episodic Other and delivery including normal (4 sources) ; Translations: [Encounter for supervision of normal , unspecified, unspecified trimester] 07-18-2024 Episodic Other upper respiratory disease (3 sources) Nasal congestion; Translations: [NASAL CONGESTION] Onset: 04-06-2022 Episodic Other upper respiratory infections (3 sources) Acute upper respiratory infection, unspecified; Translations: [Acute pharyngitis, unspecified] Onset: 04-07-2022 Episodic Residual codes; unclassified (2 sources) Gestation period, 11 weeks; Translations: [11 weeks gestation of ] 08-17-2024 Episodic Past or Other Problems Problem Classification Problem Date Documented Da te Episodic/Chronic Administrative/social admission (1 source) Encounter for pre-employment examination Onset: 01-21-2022 Resolved: 01-21-2022 Episodic Results Test Name Value Interpretation Reference Range Facility Urinalysis macro (dipstick) panel (U)on 08-17-2024 Bilirubin, UA Negative Negative - 4(70) +++ mg/dL [facility] Blood, UA Negative Negative - 50 Sam/mcL [facility] Clarity, UA Clear [facility] re Color, UA Yellow [facility] e Glucose, UA Negative Negative - 1999(110) ++++ mg/dL [facility] Interpretation and review of laboratory results Abnormal [facility] re Ketones, UA Negative Negative - 160(16) ++++ mg/dL [facility] Leukocytes, UA Positive Negative - 500+++ Supa/mcL [facility] Comment on above: small Nitrite, UA Negative Negative - Positive [facility] pH, UA 6 5 - 9 [facility] e Protein, UA Negative Negative - 1999(20) ++++ mg/dL [facility] Spec Grav, UA 1.03 1 - 1.03 [facility] care Urobilinogen, UA 0.2 0.2 - 12 mg/dL [facility] MLR HEMOGLOBIN A1Con 024 Glucose [Mass/Vol] 111 mg/dL [facility] HbA1c (Bld) [Mass fraction] 5.5 % 4.5 - 6.2 % [facility] Healthcare Comment on above: ADA RECOMMENDED LIMI T 4.0 - 6.0 ADA THERAPEUTIC TARGET < 7.0 ACTION SUGGESTED > 7.0 [facility] Urine Cultureon 08-05-2024 Bacteria identified Cx Nom (U) <9,000 colonies/ml mixed bacterial skin contaminants 2 Days PERFORMED BY: [facility] [address] [place] [address] PATHOLOGIST GROUND WATER TECHNICIAN ELICEO SPENCER M.D. Normal The Pending Sale To [facility] Comment on above: Performed By: #### C UU #### [facility] [address] HCG ( test) Ql (U)o n 07-18-2024 Interpretation and review of laboratory results Abnormal [facility] re Preg Test, Ur Positive Negative [facility] care [facility] Urinalysis macro (dipstick) panel (U)on 07-18-2024 Bilirubin, UA Negative Negative - 4(70) +++ mg/dL [facility] Blood, UA Negative Negative - 50 Sam/mcL [facility] Clarity, UA Clear [facility] re Color, UA Yellow [facility] Glucose, UA Negative Negative - 1999(110) ++++ mg/dL [facility] Interpretation and review of laboratory results Normal [facility] re Ketones, UA Negative Negative - 160(16) ++++ mg/dL [facility] Leukocytes, UA Negative Negative - 500+++ Supa/mcL [facility] Nitrite, UA Negative Negative - Positive [facility] pH, UA 6.5 5 - 9 [facility] Protein, UA Negative Negative - 1999(20) ++++ mg/dL [facility] Spec Grav, UA 1.02 1 - 1.03 [facility] Urobilinogen, UA 0.2 0.2 - 12 mg/dL [facility] PREG QUANT HCGon 024 HCG QUANTITATIVE 203 mIU/mL [facility] Comment on above: 5-50 0.2-1 WEEK 50-500 1-2 WEEKS 100-5,000 2-3 WEEKS 500-10,000 3-4 WEEKS 1,000-50,000 4-5 WEEKS 10,000-100,000 5-6 WEEKS 15,000-200,000 6-8 WEEKS 10,000-100,000 2-3 MONTHS [facility] Quick Strepon 09-17-2023 S. pyogenes Org specific cx Ql (Throat) positve [facility] Other Quick Strep [facility] Other Test, Urineon 08-11 Beta HCG ( test) Ql (U) Negative [facility] Other Capillary Glucose POCon Glucose [Mass/Vol] 94 mg/dL Normal 55-99 [facility] Comment on above: Result Comment: Loretta mcneal RN/ Performed By: #### 2 [id number] #### [facility] [address] [place] [address] Consent for Treatmenton Consent for Treatment [id number] 0TIFF Normal [facility] Discharge Instructionson Discharge Instructions [id number] 0TIFF Normal [facility] ED Clinical Summaryon 2022 ED Clinical Summary [address] [address] ED Clinical Summary Person Information Name: [facility] Age: 17 Years : 2005 Sex: Female Language: Bruneian PCP: Hazel Grady MD Marital Status: Single [...] 07/14/2023 03:42:20 07/14/2023 03:42:20 07/14/2023 03:42:20 ADDRESS: [address] [place] [address] DR MONSERRAT Berg [facility] [phone] PHYS DOC NOTES: MEDICAL INFORMATION: Prescriptions Given: New Medications [id number], [address], [place] [id number], [phone] azithromycin (azithromycin 250 mg Tab) 1 Tablets By Mouth every day for 4 Days. Refills: 0. PATIENT EDUCATION INFORMATION: Instructions: Viral Illness, Adult; Otitis Media, Adult Follow up: With: Address: When: Hazel Grady [address] [place], [place] [id number] Business (2) In 7 days 07/21/2023 DIAGNOSIS: AOM (acute otitis media); Viral illness Normal [facility] ED Note-Physicianon 07-14-20 ED Note-Physician Basic Information Time Seen: Torsten CANO Dom BaigFreya 07/14/2023 01:56 Chief Complaint Ear pain and [...] and Complexity of Problems Differential Diagnosis: [] [facility] Data External documents reviewed: N/A My [...] day(s), # 4 tab(s), Refills(s) 0, Pharmacy: [id number], 175, cm, 07/13/23 23:42:00 EST, Height/Length Dosing, 121.7, kg, 07/13/23 23:42:00 EST, Weight Dosing Capillary Glucose POC Influenza A&B Ag Rapid COVID Antigen ([facility]) Resp.syn.virus (Rsv) XR Chest Single View Disposition Plan Discharge Prescription List Prescriptions azithromycin 250 mg Tab, 250 mg= 1 tab(s), Oral, Daily Follow-up With When Contact Information Hazel Grady In 7 days 07/21/2023 EST [address] [place] [address]- Business (2) Additional Instructions: Patient Education Viral Illness, [...] 94 mg/dL (07/14/23 02:00:00) POC Device SN: [id number] (07/14/23 02:00:00) POC User ID: [id number] (07/14/23 02:00:00) POC Username: POC Username (07/14/23 [...] By: Dom Sarmiento DO 07/14/2023 01:56:22 Normal [facility] Comment on above: Result Comment: Elec tronically [...] Follow these instructions at home: ? Take rdks-zof-uddmzdt and prescription medicines only as told by [...] provider. Document Revised: 11/03/2021 Document Reviewed: 11/03/2021 [email or web address] Patient Education ? 2022 [employer] Infectious Disease Viral Illness, Adult Viruses [...] cause illne (more content not included)... Normal [facility] ED Patient Summaryon 023 ED Patient Summary [address] [address] Patient Discharge Instructions Person Information Name: FRANCES DOE Age: 17 Years Arrival Date: 07/13/2023 23:32:13 Discharge Diagnosis: AOM (acute otitis media); Viral illness Primary Care Physician: Hazel Grady MD Provider Information Primary Provider: Dom Sarmiento DO Advanced Wool Washing Machine Operator:None The exam and treatment you received in the Emergency Department were for an urgent problem and are not intended as complete care. It is important that you follow up with a doctor, nurse practitioner, or physician?s accounting assistant for ongoing care. If your symptoms [...] Follow-up Instructions: With: Address: When: Hazel Grady [facility] [place] [address] [facility] (2) In 7 days 07/21/2023 In the event that this physician does not participate in your insurance network, please consult with your insurance company to find a nearby participating provider. Patient Education Materials: Viral Illness, Adult; Otitis Media, Adult A MESSAGE TO ALL PATIENTS REGARDING OPIOIDS PRESCRIPTION OPIOIDS: WHAT YOU NEED TO KNOW Prescription opioids can be used to help relieve gixugntw-zo-kxxmyw pain and are often prescribed following a [...] struggling with addiction, tell your health healthcare applications analyst and ask for guidance or call [facility]?S National Helpline at [phone]. (more content not included)... Normal [facility] Influenza A&B Agon 3 Influenzae A Ag Negative Normal Negative [facility] Comment on above: Performed By: #### 2 [id number] #### [facility] [address] [place] [address] Influenzae B Ag Negative Normal Negative [facility] Comment on above: Result Comment: Test sensitivity and specificity vary for age group, specimen type, antigen types, and prevalence of disease. Test results must be evaluated in conjunction with other clinical data available to the physician. Individuals who received nasally administered Influenza A vaccine may have positive test results up to 3 days after vaccination. Performed By: #### 2 [id number], [id number] #### [facility] [address] [place] [address] Prescriptions/Work Noteson 1 09-14-2022 Prescriptions/Work Notes [id number] 0TIFF Normal [facility] Rapid COVID Antigen ([facility])on 07-14-2023 Rapid COV Int NEG Ctl Pass Normal [facility] Comment on above: Performed By: #### 2 [id number] #### [facility] [address] [place] [address] Rapid COV Int POS Ctl Pass Normal [facility] Comment on above: Performed By: #### 2 [id number] #### [facility] [address] [place] [address] SARS-CoV+SARS-CoV-2 (COVID-19) Ag IA.rapid Ql (Resp) Not detected Normal Not Detected [facility] Comment on above: Result Comment: The [employer]? System for Rapid Detection of SARS-CoV-2 is [...] or revoked sooner. Performed By: #### 2 [id number], [id number] #### [facility] [address] [place] [address] Resp.syn.virus (Rsv)on 07-14 RSV Ag IA.rapid Ql (Nph) Negative Normal Negative [facility] Comment on above: Performed By: #### 2 [id number] #### [facility] [address] [place] [address] XR Chest Single Viewon 07-14 XR Chest [...] mGy = na DAP = na Normal [facility] Formson 12-24-2022 Forms [id number] 0CD:127 Normal [facility] Vital Signs Date Time Vital Sign Value Performing Clinician Facility 08-17-2024 11:52-0500 Body weight 138.8 kg Yogesh Ally DO Work Phone: [facility] 08-17-2024 11:52-0500 Diastolic blood pressure 78 mm[Hg] Yogesh Ally DO Work Phone: [facility] 08-17-2024 11:52-0500 Systolic blood pressure 122 mm[Hg] Yogesh Ally DO Work Phone: [facility] 07-18-2024 11:15-0500 Body weight 139.71 kg [facility] Nurse [facility] 07-18-2024 11:15-0500 Diastolic blood pressure 74 mm[Hg] [facility] Nurse [facility] 07-18-2024 11:15-0500 Systolic blood pressure 118 mm[Hg] [facility] 09-17-2023 09:35-0500 Body height 175.26 cm Tiesha Remigio Other [facility] Other 09-17-2023 09:35-0500 Body mass index (BMI) [Ratio] 40.16 kg/m2 Tiesha Flood Other [facility] Other 09-17-2023 09:35-0500 Body temperature 99.2 [degF] Tiesha Flood Other [facility] Other 09-17-2023 09:35-0500 Body weight 123.38 kg Tiesha Flood Other [facility] Other 09-17-2023 09:35-0500 Respiratory rate 18 /min Tiesha Flood Other [facility] Other 09-17-2023 09:35-0500 SaO2% (BldA) [Mass fraction] 97 % Tiesha Flood Other [facility] Other 09-02-2023 09:30-0500 Body height 175.26 cm Sheree Cheung Other [facility] Other 09-02-2023 09:30-0500 Body mass index (BMI) [Ratio] 40.21 kg/m2 Sheree Cheung Other [facility] Other 09-02-2023 09:30-0500 Body weight 123.52 kg Sheree Cheung Other [facility] Other 09-02-2023 09:30-0500 Diastolic blood pressure 78 mm[Hg] Sheree Kaple Other [facility] Other 09-02-2023 09:30-0500 Respiratory rate 18 /min Sheree Jonatan Other [facility] Other 09-02-2023 09:30-0500 SaO2% (BldA) [Mass fraction] 97 % Sheree Jonatan Other [facility] Other 09-02-2023 09:30-0500 Systolic blood pressure 120 mm[Hg] Sheree Jonatan Other [facility] Other 07-27-2023 09:30-0500 Body height 175.26 cm Sheree Jonatan Other [facility] Other 07-27-2023 09:30-0500 Body mass index (BMI) [Ratio] 40.02 kg/m2 Sheree Jonatan Other [facility] Other 07-27-2023 09:30-0500 Body weight 122.93 kg Sheree De Leónkevin Other [facility] Other 07-27-2023 09:30-0500 Diastolic blood pressure 76 mm[Hg] Sheree Cheung Other [facility] Other 07-27-2023 09:30-0500 Respiratory rate 16 /min Sheree Sarthakle Other [facility] Other 07-27-2023 09:30-0500 SaO2% (BldA) [Mass fraction] 98 % Sheree Cheung Other [facility] Other 07-27-2023 09:30-0500 Systolic blood pressure 120 mm[Hg] Sheree Cheung Other [facility] Other 01-21-2022 15:35-0400 Body height 175.26 cm Almaz Huerta Other [facility] Other 01-21-2022 15:35-0400 Body mass index (BMI) [Ratio] 30.86 kg/m2 Almaz Huerta Other [facility] Other 01-21-2022 15:35-0400 Body temperature 97.3 [degF] Almaz Huerta Other [facility] Other 01-21-2022 15:35-0400 Body weight 94.8 kg Almaz Huerta Other [facility] Other 01-21-2022 15:35-0400 Diastolic blood pressure 73 mm[Hg] Almaz Huerta Other [facility] Other 01-21-2022 15:35-0400 Respiratory rate 16 /min Almaz Huerta Other [facility] Other 01-21-2022 15:35-0400 SaO2% (BldA) [Mass fraction] 97 % Almaz Huerta Other [facility] Other 01-21-2022 15:35-0400 Systolic blood pressure 133 mm[Hg] Almaz Huerta Other [facility] Other Encounters Encounter Date Encounter Type Care Provider Facility Start: 08-17-2024 End: 08-17-2024 Bamboo flowsmaranda Canales DO Work Phone: [facility] Start: 08-17-2024 End: 08-17-2024 Bamboo flowsheet Yogesh Ally DO Work Phone: [facility] Start: 08-17-2024 End: 08-17-2024 flow sheet Yogesh Ally DO Work Phone: [facility] Comment on above: First trimester preg merly; 11 weeks gestation of ; headache, antepartum Start: 08-17-2024 End: 08-17-2024 ambulatory YOGESH ALLY Not Available Start: 08-05-2024 End: 08-05-2024 [facility] Result Encounter Yogesh Ally DO Work Phone: [facility] Unsolicited Start: 08-05-2024 End: 08-05-2024 [facility] Result Encounter Yogesh Ally DO Work Phone: [facility] Unsolicited Start: 08-05-2024 End: 08-05-2024 ambulatory Sheree Cheung Facility:[facility] Start: 07-18-2024 End: 07-18-2024 ambulatory [facility] Ally Nurse [facility] Comment on above: GA: 7w3d Start: 06-26-2024 End: 06-26-2024 [facility] Result Encounter Maryanne FOWLER Work Phone: [facility] Unsolicited Start: 06-26-2024 End: 06-26-2024 [facility] Result Encounter Maryanne FOWLER Work Phone: [facility] Unsolicited Start: 09-17-2023 End: 09-17-2023 ambulatory Tiesha Flood Other [facility] Other Start: 09-17-2023 Office outpatient vi sit 15 minutes Tiesha Flood [facility] Start: 09-02-2023 End: 09-02-2023 ambulatory Sheree Cheung Other [facility] Other Start: 09-02-2023 Office outpatient vi sit 25 minutes Sheree Cheung [facility] [place] Start: 07-27-2023 End: 07-27-2023 ambulatory Sheree Cheung Other [facility] Other Start: 07-27-2023 Encounter for genera l adult medical examination without abnormal findings Sheree Jonatan [facility] [place] Start: 07-27-2023 Initial preventive medicine new pt age 18-39yrs Sheree Jonatan [facility] [place] Start: 07-14-2023 End: 07-14-2023 Emergency department patient visit Dom Sarmiento Facility:[facility] Start: 12-24-2022 ambulatory Dom Torsten Facility: [facility] Start: 04-06-2022 End: 04-06-2022 ambulatory HAZEL GRADY Facility: Start: 01-21-2022 (URG) Urgent Care Visit Almaz romero [facility] [place] Start: 01-21-2022 End: 01-21-2022 ambulatory Almaz Huerta Other [facility] Other Procedures Date Procedure Procedure Detail Performing Clinician Start: 08-17-2024 Urnls dip stick/tabl et rgnt non-auto w/o micrscp Yogesh Ally DO Work Phone: Start: 08-05-2024 MLR HEMOGLOBIN A1C Core y Ally DO Work Phone: Start: 07-18-2024 End: 07-18-2024 Urnls dip stick/tablet rgnt non-auto w/o micrscp Yogesh Ally DO Work Phone: Start: 06-26-2024 [facility] PREG QUANT HCG Maryanne FOWLER Work Phone: Plan of Treatment Date Care Activity Detail Author Start: 09-21-2024 End: 09-21-2024 Patient encounter procedure 09/21/2024 9:30 AM EST Routine [facility] [address] [address] Maryanne Whiteside PA [address] [place] [address] [facility] Start: 08-17-2024 End: 08-17-2024 Patient encounter procedure [facility] Comment on above: Arrived Start: 07-18-2024 End: 07-18-2025 ABO/Rh ABO/Rh Lab Routine Missed menses , unspecified gestational age Expected: 07/18/2024 (Approximate), Expires: 07/18/2025 [facility] Comment on above: Expected: 07/18/2024 (Approximate), Expires: 07/18/2025 Start: 07-18-2024 End: 07-18-2025 Blood type and Indirect antibody screen panel - Blood Type and screen Lab Routine Missed menses , unspecified gestational age Expected: 07/18/2024 (Approximate), Expires: 07/18/2025 [facility] Work Phone: Comment on above: Expected: 07/18/2024 (Approximate), Expires: 07/18/2025 Start: 07-18-2024 End: 07-18-2025 Drugs of abuse panel - Urine by Screen method Rapid drug screen, urine Lab Routine , unspecified gestational age Encounter for supervision of normal first in first trimester Expected: 07/18/2024 (Approximate), Expires: 07/18/2025 [facility] Comment on above: Expected: 07/18/2024 (Approximate), Expires: 07/18/2025 Start: 07-18-2024 End: 07-18-2025 US Pelvis transvaginal US OB transvaginal Imaging Routine Missed menses Expected: 07/18/2024 (Approximate), Expires: 07/18/2025 [facility] Comment on above: Expected: 07/18/2024 (Approximate), Expires: 07/18/2025 Start: 07-18-2024 End: 07-18-2024 ambulatory 07/18/2024 10:30 AM EST Initial [facility] [address] [place] [address] [facility] Start: 07-18-2024 End: 07-18-2024 Professional / ancillary services management 07/18/2024 10:00 AM EST Ancillary Procedure [facility] OB [address] [place] [address] [facility] OB Bacteria identified in Urine by Culture Urine culture Microbiology Routine Missed menses Ordered: 07/18/2024 [facility] Comment on above: Ordered: 07/18/2024 CBC W Auto Different ial panel - Blood CBC and differential Lab Routine Missed menses , unspecified gestational age Ordered: 07/18/2024 [facility] Comment on above: Ordered: 07/18/2024 Hemoglobin A1c/Hemoglobin.total in Blood Hemoglobin A1c Lab Routine Missed menses , unspecified gestational age Ordered: 07/18/2024 [facility] Comment on above: Ordered: 07/18/2024 Hepatitis B virus surface Ag [Presence] in Serum or Plasma by Immunoassay Hepatitis B surface antigen Lab Routine Missed menses , unspecified gestational age Ordered: 07/18/2024 [facility] Comment on above: Ordered: 07/18/2024 Hepatitis C virus Ab [Presence] in Serum or Plasma by Immunoassay Hepatitis C antibody Lab Routine Missed menses , unspecified gestational age Ordered: 07/18/2024 [facility] Comment on above: Ordered: 07/18/2024 HIV-1/HIV-2 antigen/antibody combination immunoassay HIV-1 and HIV-2 antibodies Lab Routine Missed menses , unspecified gestational age Ordered: 07/18/2024 [facility] Comment on above: Ordered: 07/18/2024 Reagin Ab [Presence] in Serum by RPR RPR Lab Routine Missed menses , unspecified gestational age Ordered: 07/18/2024 [facility] Comment on above: Ordered: 07/18/2024 Rubella antibody, IgG Rubella an tibody, IgG Lab Routine Missed menses , unspecified gestational age Ordered: 07/18/2024 [facility] Comment on above: Ordered: 07/18/2024 Immunizations Immunization Date Immunization Notes Care Provider Chase sequeira 03-17-2021 Human Papillomavirus 9-valent vaccine Almaz Huerta Other [facility] Other 02-10-2021 Do not use COVID-19 Pfizer 2 dose Almaz Huerta Other [facility] Other 08-04-2016 Human Papillomavirus 9-valent vaccine Almaz Deanna Other [facility] Other 05-22-2016 Human Papillomavirus 9-valent vaccine Almaz Deanna Other [facility] Other 07-29-2015 hepatitis A vaccine, pediatric/adolescent dosage, 2 dose schedule Almaz Deanna Other [facility] Other 04-02-2007 hepatitis A vaccine, pediatric/adolescent dosage, 2 dose schedule Almaz Deanna Other [facility] Other 04-14-2005 diphtheria, tetanus toxoids and acellular pertussis vaccine, 5 pertussis antigens Almaz Deanna Other [employer] Other 10-09-2004 measles, mumps and rubella virus vaccine Alma[facility] Deanna Other [facility] Other 04-21-2004 DTaP-hepatitis B and poliovirus vaccine Al[facility] Deanna Other [facility] Other 04-21-2004 haemophilus influenz ae type b vaccine, PRP-T conjugate [facility] Deanna Other [facility] Other 02-19-2004 DTaP-hepatitis B and poliovirus vaccine Almaz Deanna Other [facility] Other 02-19-2004 haemophilus influenz ae type b vaccine, PRP-T conjugate Alma[facility] Deanna Other [facility] Other 2003 DTaP-hepatitis B and poliovirus vaccine Alma[facility] Deanna Other [facility] Other 2003 haemophilus influenz ae type b vaccine, PRP-T conjugate Almaz Huerta Other [facility] Other 2003 hepatitis B vaccine, pediatric or pediatric/adolescent dosage Almaz Huerta Other [facility] Other Payers Date Payer Category Payer Self-pay 2021 Private Health Insurance 2003 Unknown [id number] 2003 Unknown [id number] 2003 Unknown [id number] [id number] 1959 Unknown [id number] 1959 Unknown [id number] 1959 Unknown [id number] [id number] [id number] Unknown [id number] [id number] Social History Date Type Detail Facility Unknown if ever smoked [facility] Other Sex Assigned At [facility] Other Tobacco smoking status [facility] Tobacco smoking consumption unknown [facility] Start: 2003 Sex assigned at Not on file [facility] Start: 06-10-2024 [facility] History of Present illness Narrative 08-17-2024 Vicky Rodríguez LPN - 08/17/2024 11:20 AM EST Note Date & Type Note Facility 08-17-2024 History of Presen t illness Narrative Reason for Appointment: Patient ID: Frances Doe is a 18 y.o. female who presents for Routine Visit Patient presents today for Return OB appointment. MEDICATIONS Current Outpatient Medications Medication Instructions ondansetron ODT (ZOFRAN-ODT) 4 mg, Oral, Every 6 hours PRN sertraline (ZOLOFT) 50 mg, Nightly ALLERGIES Allergies Allergen Reactions Amoxicillin Rash PROBLEMS Active Ambulatory Problems Diagnosis Date Noted No Active Ambulatory Problems Resolved Ambulatory Problems Diagnosis Date Noted No Resolved Ambulatory Problems No Additional Past Medical History HISTORY PAST MEDICAL HISTORY SOCIAL HISTORY No past medical history on file. Social History Tobacco Use Smoking status: Not on file Smokeless tobacco: Not on file Substance Use Topics Alcohol use: Not on file Drug use: Not on file FAMILY HISTORY No family history on file. SURGICAL HISTORY No past surgical history on file. REVIEW OF SYSTEMS Review of Systems: Review of Systems All other systems reviewed and are negative. OBJECTIVE Objective: Physical Exam Constitutional: Appearance: Normal appearance. She is well-developed. Cardiovascular: Rate and Rhythm: Normal rate and regular rhythm. Pulmonary: Effort: Pulmonary effort is normal. Breath sounds: Normal breath sounds. Abdominal: General: Bowel sounds are normal. There is no distension. Palpations: Abdomen is soft. Tenderness: There is no abdominal tenderness. There is no guarding or rebound. Musculoskeletal: General: No swelling. Normal range of motion. Right lower leg: No edema. Left lower leg: No edema. Neurological: Mental Status: She is alert and oriented to person, place, and time. Skin: General: Skin is warm and dry. Psychiatric: Mood and Affect: Mood normal. Behavior: Behavior normal. Vitals and nursing note reviewed. Exam conducted with a merchandise pickup/receiving associate present. Vitals: There is no height or weight on file to calculate BMI. BP: 122/78 Patient's last menstrual period was 05/09/2024. ASSESSMENT & PLAN ICD-10-CM 1. First trimester Z34.91 POCT urinalysis dipstick manually resulted 2. 11 weeks gestation of Z3A.11 New OB: Patient presents today for 1st time obstetrics appointment with provider. Patient is currently 11w5d . Patients history has been reviewed in great detail including any potential risks. Patient stated she currently has no complaints. Expectations throughout regarding labs, ultrasounds, and appointments have been discussed with the patient in detail. It was reiterated that the patient is to drink 6-8 glasses of water a day, eat 6 small meals a day, do not consume raw or undercooked meat, and stay away from [facility]. Patient has been consulted regarding any further do's and don'ts of . Patient voiced understanding and all questions and concerns were answered. Advised patient to take daily Aspirin 81mg . Orders Placed This Encounter Procedures POCT urinalysis dipstick manually resulted Follow Up: Patient is to return in 4 weeks for routine OB appointment. Documented by Vicky Rodríguez LPN on behalf of: Yogesh Canales DO documented in this encounter [facility] History of Present illness Narrative 07-18-2024 Jazmyne [...] or undercooked meat, and stay away from [facility]. Patient has also been advised to [...] Jazmyne Oliveira MA documented in this encounter [facility] Evaluation note 09-17-2023 Note Date & [...] understanding and is agreeable to treatment plan. [facility] Other Evaluation note 09-02-2023 Note Date & [...] and no personal patient information was compromised. [facility] Other Evaluation note 07-27-2023 Note Date & [...] (ICD-10 - F32.1) See above treatment plan. [facility] Other Evaluation note 01-21-2022 Note Date & Type Note Facility 01-21-2022 Evaluation note Encounter Date Diagnosis Assessment Notes Jan, Pre-employment examination (ICD-10 - Z02.1) [facility] Other Evaluation note Note Date & Type Note Facility Evaluation note Diagnosis Missed menses , unspecified gestational age Encounter for supervision of normal first in first trimester Nausea and vomiting in Unspecified vomiting of , unspecified as to episode of care documented in this encounter [facility] Evaluation note Note Date & Type Note Facility Evaluation note Diagnosis First trimester state, incidental 11 weeks gestation of headache, antepartum documented in this encounter [facility] History general Narrative - Reported Note Date & Type Note Facility History general Narrative - Reported Type Medical History vertigo [facility] Other Reason for referral (narrative) Note Date & Type Note Facility Reason for referral (narrative) Diagnosis 1 MATTHIAS (generalized anx iety disorder) (F41.1) Referral Organization [facility] Carolyne Wick Referring Provider First Name Sheree Referring Provider Last Name Jonatan Referring Provider Specialty Nurse Practitioner Referred Provider Specialty Psychiatry Referral Priority Routine [facility] Swarm Other Summary Purpose Family History No Family History Records FoundNo Family History Records FoundNo Family History Records FoundNo Family History Records Found Advance Directives No Advanced Directives Records FoundNo Advanced Directives Records FoundNo Advanced Directives Records FoundNo Advanced Directives Records Found Additional Source Comments REASON FOR VISIT (unrecogniz ed section and content) Reason Comments Routine Visit INFORMATION SOURCE (unrecogn ized section and content) DATE CREATED AUTHOR 04/10/2022 [facility] DATE CREATED AUTHOR AUTHOR'S ORGANIZ ATION 08/13/2023 [facility] DATE CREATED AUTHOR AUTHOR'S ORGANIZ ATION 08/09/2024 [facility] DATE CREATED AUTHOR AUTHOR'S ORGANIZ ATION 08/22/2024 [facility] EPIC Care Teams (unrecognized sec tion and content) Etl Programmer Relationship Specialty Start Date End Date Hazel Grady MD [address] [place] [id number] PCP - General Family Medicine 07/18/24 Etl Programmer Relationship Specialty Start Date End Date Hazel Grady MD [address] [place] [id number] PCP - General Family Medicine 07/18/24 Etl Programmer Relationship Specialty Start Date End Date Hazel Grady MD [address] [place] [id number] PCP - General Family Medicine 07/18/24 FOR [...] BE BASED ON THE PRIMARY CLINICAL RECORDS. [facility] [employer] [facility]. provides no warranty or guarantee of the accuracy or completeness of information in this document.
[2024-09-03 13:52] VITALS: BP 146/87; PULSE 95; TEMP 37.1; O2SAT 100; BMI 45.2
--- NOTE | 2024-09-03 14:38 | ED.GENADUL1 ---
HPI HPI - General Adult General Chief complaint: Headache Stated complaint: MIGRAINE - 14 WEEKS PREG Time Seen by Provider: 09/03/24 14:23 Source: patient Mode of arrival: walk-in History of Present Illness HPI narrative: The patient is 14 weeks is coming today with a left-sided headache, mentioned that she have a history of migraine she is denying any other concerns and she did have some nausea as well, patient had Phenergan at home that she did not take as well as Zofran that she did not use yet Patient also is complaining of suprapubic discomfort sometimes although it is not present at the moment No vaginal bleeding no vaginal discharge no other concerns Related Data Home Medications ?Medication ?Instructions ?Recorded ?Confirmed sertraline 50 mg tablet 50 mg PO QPM 06/24/24 09/03/24 magnesium oxide 400 mg (241.3 mg mg 09/03/24 magnesium) tablet promethazine 12.5 mg tablet mg 09/03/24 Previous Rx's ?Medication ?Instructions ?Recorded ondansetron 4 mg disintegrating 4 mg PO Q8H PRN nausea and 06/24/24 tablet vomiting 5 days #20 tabs Allergies Allergy/AdvReac Type Severity Reaction Status Date / Time amoxicillin Allergy Severe Rash Verified 09/03/24 13:51 Opioid HPI Opioid Management Most Recent Opioid Data: Last OCT Pain Assessment 09/03/24 15:39 Ur Phencyclidine Scrn Negative (NEGATIVE) 08/05/24 11:05 08/05/24 Review of Systems ROS Status of ROS 10 or more systems reviewed and unremarkable except as noted in history and below PFSH PFSH Social History Smoking status: Never smoker Little interest or pleasure in doing things: not at all Feeling down, depressed, or hopeless: not at all Exam Narrative Exam Narrative: Nurses notes and vital signs reviewed and patient is not hypoxic. General: Well-appearing and in no apparent distress. Skin: Warm, dry, no pallor noted. No rash. Head: Normocephalic, atraumatic. Neck: Supple, non-tender. Eye: Pupils are equal, round and EOMI. No scleral icterus. Ears, Nose, Mouth, and Throat: TM are clear, no nasal mucosal hypertrophy. Oral mucosa is moist, no posterior oropharynx erythema, uvula is mid-line Cardiovascular: Regular Rate and Rhythm without murmur, gallop or rub. Respiratory: No accessory muscle use or respiratory distress. Lungs are clear to auscultation, no wheezing, rales or rhonchi Chest Wall: no tenderness Back: No midline thoracic or lumbar vertebral tenderness. No CVA tenderness Musculoskeletal: normal ROM, no calf or popliteal tenderness, no lower extremity edema/swelling GI: Abdomen is soft, non-distended. Normal bowel sounds. No masses appreciated. No tenderness to palpation. No rebound, guarding, or rigidity noted. Neurological: A&O x4. No cranial nerve dysfunction observed. No truncal ataxia. Moves all extremities. Sensation intact. Psychiatric: Cooperative and interactive. Normal mood and affect. Constitutional Vital Signs, click to edit/add: Last Vital Signs Temp 98.7 F 09/03/24 13:52 Pulse 95 H 09/03/24 13:52 Resp 16 09/03/24 13:52 BP 146/87 H 09/03/24 13:52 Pulse Ox 100 09/03/24 13:52 O2 Del Method Room Air 09/03/24 13:52 Course Vital Signs Vital signs: Vital Signs Temperature 98.7 F 09/03/24 13:52 Pulse Rate 95 H 09/03/24 13:52 Respiratory Rate 16 09/03/24 13:52 Blood Pressure 146/87 H 09/03/24 13:52 Pulse Oximetry 100 09/03/24 13:52 Oxygen Delivery Method Room Air 09/03/24 13:52 Temperature 98.7 F 09/03/24 13:52 Pulse Rate 95 H 09/03/24 13:52 Respiratory Rate 16 09/03/24 13:52 Blood Pressure 146/87 H 09/03/24 13:52 Pulse Oximetry 100 09/03/24 13:52 Oxygen Delivery Method Room Air 09/03/24 13:52 Medical Decision Making MDM Narrative Medical decision making narrative: The patient already had an ultrasound done as outpatient that shows that she have intrauterine Her abdominal examination was benign in the ER her main concern with a headache IV established and the patient was provided with Phenergan IV and Tylenol after which she was feeling much better The patient is to follow up with primary care physician in next 2-3 days or to return to the emergency department should any of the signs or symptoms worsen or new symptoms develop. The patient agrees with the following Diagnosis and Treatment plan and the patient will be discharged home. Lab Data Labs: Lab Results 09/03/24 Range/Units 14:38 POC Glucose 82 (74-106) mg/dL Discharge Plan Discharge Chief Complaint: Headache Clinical Impression: Headache Patient Disposition: Home, Self-Care Time of Disposition Decision: 16:18 Condition: Good Prescriptions / Home Meds: No Action sertraline 50 mg tablet 50 mg PO QPM ondansetron 4 mg tablet,disintegrating 4 mg PO Q8H PRN (Reason: nausea and vomiting) 5 Days Qty: 20 0RF promethazine 12.5 mg tablet magnesium oxide 400 mg (241.3 mg magnesium) tablet Print Language: [place] Citizen Instructions: Acute Headache (ED) Referrals: HAZEL GRADY [Primary Care Provider] - 1 week Discharge Date/Time: 09/03/24 16:28
[2024-09-03 14:44] LABS: Glucometer 82 mg/dL (74-106)
[2024-09-03] MEDS: PROMETHAZINE HCL 25 MG in 0.9 % SODIUM CHLORIDE 50 ML 204 MG IV (15:11)
[2024-09-03] MEDS: ACETAMINOPHEN 325 MG TABLET 650 MG PO (15:39)
== END 2024-09-03 16:28 | disposition home or self-care (01) ==
PROVIDERS: Emergency Provider Emergency Medicine; PCP Family Medicine
DX: O99.891 Other specified diseases and conditions complicating pregnancy (principal); R51.9 Headache, unspecified; Z3A.14 14 weeks gestation of pregnancy
CPT/HCPCS: 36415; 82948; 96365; 99284; J2550

== ENCOUNTER 2024-09-22 15:33 | Outpatient (OUT) | payer OTHER, SELFPAY ==
--- OUTSIDE RECORDS SUMMARY | 2024-09-22 15:38 | XMS_ITS | CCD ---
Author Organization [facility] Care Team Providers Care Vp Mobile Products Name Role Phone Almaz Huerta Unavailable HAZEL GRADY Primary Care Unavailable CHRISTIANO TATUM Attending Unavailable CHRISTIANO TATUM Consulting Unavailable CHRISTIANO TATUM Admitting Unavailable Sheree Cheung Unavailable Dom Sarmiento Attending Unavailable Tiesha Flood Unavailable Unavailable Primary Care Provider UnavailHazel Young MD Primary Care Provider Sheree Cheung Primary Care Unavailable Yogesh Canales Attending Unavailable Yogesh Canales Admitting Unavailable YOGESH CANALES Attending Unavailable Allergies Allergy Classification Reported Allergen(s) Allergy Type Date of Onset Reaction(s) Facility (13 sources) Amoxicillin; Translations: [amoxicillin] Drug Allergy 4 swelling, Rash [facility] Repository (1 source) Amoxicillin Drug Allergy 6 [facility] Repository (1 source) Amoxicillin Drug Allergy 4 [facility] Repository Medications Current Medications Medication Drug Class(es) [...] Active promethazine hydrochloride 12.5 mg oral tablet (5 sources) Phenothiazine Start: 08-17-2024 take 1 tablet [...] 08/17/2024 Active sertraline 50 mg oral tablet (8 sources) Serotonin Reuptake Inhibitor Start: 04-05-2024 take [...] for initial prescription of contraceptive pills Episodic Immunizations and screening for infectious disease (2 sources) Exposure to sexually transmissible disorder; Translations: [Contact with and (suspected) exposure to infections with a predominantly sexual mode of transmission] 09-21-2024 Episodic Menstrual disorders (1 source) Missed period; [...] related conditions, unspecified trimester] 08-17-2024 Episodic Other female genital disorders (2 sources) Vaginal discharge; Translations: [Other specified noninflammatory disorders of vagina] 09-21-2024 Episodic Other and delivery including normal (6 sources) ; Translations: [Encounter for supervision of normal , unspecified, unspecified trimester] 07-18-2024 Episodic Other screening for suspected conditions (not mental disorders or infectious disease) (4 sources) Patient encounter status; Translations: [Encounter for other specified screening] 09-21-2024 Episodic Other upper respiratory disease (3 sources) Nasal congestion; Translations: [NASAL CONGESTION] Onset: 04-06-2022 Episodic Other upper respiratory infections (3 sources) Acute upper respiratory infection, unspecified; Translations: [Acute pharyngitis, unspecified] Onset: 04-07-2022 Episodic Residual codes; unclassified (2 sources) Gestation period, 11 weeks; Translations: [11 weeks gestation of ] 08-17-2024 Episodic Residual codes; unclassified (2 sources) Gestation period, 16 weeks; Translations: [16 weeks gestation of ] 09-21-2024 Episodic Past or Other Problems Problem Classification Problem Date Documented Da te Episodic/Chronic Administrative/social admission (1 source) Encounter for pre-employment examination Onset: 01-21-2022 Resolved: 01-21-2022 Episodic Results Test Name Value Interpretation Reference Range Facility Urinalysis macro (dipstick) panel (U)Ordered By: Vicky Rodríguez on 09-21-2024 Bilirubin, UA Negative Negative - 4(70) +++ mg/dL [facility] Blood, UA Negative Negative - 50 Sam/mcL [facility] Clarity, UA Clear [facility] Color, UA Yellow [facility] Glucose, UA Negative Negative - 2000(110) ++++ mg/dL [facility] Interpretation and review of laboratory results Normal [facility] Ketones, UA Negative Negative - 160(16) ++++ mg/dL [facility] Leukocytes, UA Negative Negative - 500+++ Supa/mcL [facility] Nitrite, UA Negative Negative - Positive [facility] pH, UA 7.5 5 - 9 [facility] Protein, UA Negative Negative - 1999(20) ++++ mg/dL [facility] Spec Grav, UA 1.02 1 - 1.03 [facility] Urobilinogen, UA 0.2 0.2 - 12 mg/dL [facility] Urinalysis macro (dipstick) panel (U)on 08-17-2024 Bilirubin, UA Negative Negative - 4(70) +++ mg/dL [facility] Blood, UA Negative Negative - 50 Sam/mcL [facility] Clarity, UA Clear [facility] re Color, UA Yellow [facility] e Glucose, UA Negative Negative - 1999(110) ++++ mg/dL [facility] Interpretation and review of laboratory results Abnormal [facility] Ketones, UA Negative Negative - 160(16) ++++ mg/dL [facility] Leukocytes, UA Positive Negative - 500+++ Supa/mcL [facility] Comment on above: small Nitrite, UA Negative Negative - Positive [facility] pH, UA 6 5 - 9 [facility] Protein, UA Negative Negative - 1999(20) ++++ mg/dL [facility] Spec Grav, UA 1.03 1 - 1.03 [facility] Urobilinogen, UA 0.2 0.2 - 12 mg/dL [facility] MLR HEMOGLOBIN A1Con 024 Glucose [Mass/Vol] 111 mg/dL [facility] HbA1c (Bld) [Mass fraction] 5.5 % 4.5 - 6.2 % [facility] Comment on above: ADA RECOMMENDED LIMI T 4.0 - 6.0 ADA THERAPEUTIC TARGET < 7.0 ACTION SUGGESTED > 7.0 [facility] Urine Cultureon 08-05-2024 Bacteria identified Cx Nom (U) <9,000 colonies/ml mixed bacterial skin contaminants 2 Days PERFORMED BY: [facility] [place] [address] PATHOLOGIST [employer] DEPARTMENT MANAGER ELICEO SPENCER M.D. Normal [facility] Comment on above: Performed By: #### C UU #### [facility] [address] [id number] [facility] HCG ( test) Ql (U)o n 07-18-2024 Interpretation and review of laboratory results Abnormal [facility] re Preg Test, Ur Positive Negative [facility] Urinalysis macro (dipstick) panel (U)on 07-18-2024 Bilirubin, UA Negative Negative - 4(70) +++ mg/dL [facility] Blood, UA Negative Negative - 50 Sam/mcL [facility] Clarity, UA Clear [facility] Health[facility] re Color, UA Yellow [facility] e Glucose, UA Negative Negative - 1999(110) ++++ mg/dL [facility] Interpretation and review of laboratory results Normal [facility] re Ketones, UA Negative Negative - 160(16) ++++ mg/dL [facility] Leukocytes, UA Negative Negative - 500+++ Supa/mcL [facility] Nitrite, UA Negative Negative - Positive [facility] pH, UA 6.5 5 - 9 [facility] e Protein, UA Negative Negative - 1999(20) ++++ mg/dL [facility] Spec Grav, UA 1.02 1 - 1.03 [facility] Urobilinogen, UA 0.2 0.2 - 12 mg/dL [facility] PREG QUANT HCGon 06-26-2 024 HCG QUANTITATIVE 203 mIU/mL [facility]care Comment on above: 5-50 0.2-1 WEEK 50-500 1-2 WEEKS 100-5,000 2-3 WEEKS 500-10,000 3-4 WEEKS 1,000-50,000 4-5 WEEKS 10,000-100,000 5-6 WEEKS 15,000-200,000 6-8 WEEKS 10,000-100,000 2-3 MONTHS [facility] Quick Strepon 09-17-2023 S. pyogenes Org specific cx Ql (Throat) positve [facility] Other Quick Strep [facility] Other Test, Urineon 08-11 Beta HCG ( test) Ql (U) Negative [facility] Other Capillary Glucose POCon Glucose [Mass/Vol] 94 mg/dL Normal 55-99 [facility] Comment on above: Result Comment: Loretta mcneal RN/ Performed By: #### 2 [id number] #### [facility] [address] [place] [address] Consent for Treatmenton Consent for Treatment [id number] 0TIFF Normal [facility] Discharge Instructionson Discharge Instructions [id number] 0TIFF Normal [facility] ED Clinical Summaryon 2022 ED Clinical Summary [address] [address] ED Clinical Summary Person Information Name: FRANCES DOE/[facility] Age: 17 Years : 2005 Sex: Female Language: Fijian PCP: Hazel Grady MD Marital Status: Single [...] 07/14/2023 03:42:20 07/14/2023 03:42:20 07/14/2023 03:42:20 ADDRESS: [facility] [address] [id number] PHYS DOC NOTES: MEDICAL INFORMATION: Prescriptions Given: New Medications [id number], [address] [facility] [place] [id number], [phone] azithromycin (azithromycin 250 mg Tab) 1 Tablets By Mouth every day for 4 Days. Refills: 0. PATIENT EDUCATION INFORMATION: Instructions: Viral Illness, Adult; Otitis Media, Adult Follow up: With: Address: When: Hazel Grady [address] [place] [address] Business (2) In 7 days 07/21/2023 DIAGNOSIS: AOM (acute otitis media); Viral illness Normal [facility] ED Note-Physicianon 07-14-20 ED Note-Physician Basic [...] Complexity of Problems Differential Diagnosis: [] [facility] Data External documents reviewed: N/A My [...] day(s), # 4 tab(s), Refills(s) 0, Pharmacy: [id number], 175, cm, 07/13/23 23:42:00 EST, Height/Length Dosing, 121.7, kg, 07/13/23 23:42:00 EST, Weight Dosing Capillary Glucose POC Influenza A&B Ag Rapid COVID Antigen ([facility]) Resp.syn.virus (Rsv) XR Chest Single View Disposition Plan Discharge Prescription List Prescriptions azithromycin 250 mg Tab, 250 mg= 1 tab(s), Oral, Daily Follow-up With When Contact Information Hazel Grady In 7 days 07/21/2023 EST [address] [place] [address]- Business (2) Additional Instructions: Patient Education Viral [...] 94 mg/dL (07/14/23 02:00:00) POC Device SN: [id number] (07/14/23 02:00:00) POC User ID: [id number] (07/14/23 02:00:00) POC Username: POC Username (07/14/23 [...] By: Dom Sarmiento DO 07/14/2023 01:56:22 Normal [facility] Comment on above: Result Comment: Elec [...] Follow these instructions at home: ? Take hyvf-lua-klxwowv and prescription medicines only as told by [...] provider. Document Revised: 11/03/2021 Document Reviewed: 11/03/2021 [employer] Patient Education ? 2022 [employer] Infectious Disease Viral Illness, Adult Viruses [...] cause illne (more content not included)... Normal [facility] ED Patient Summaryon 023 ED Patient Summary [address] [address] Patient Discharge Instructions Person Information Name: FRANCES DOE Age: 17 Years Arrival Date: 07/13/2023 23:32:13 Discharge Diagnosis: AOM (acute otitis media); Viral illness Primary Care Physician: Hazel Grady MD Provider Information Primary Provider: Dom Sarmiento DO Advanced Play Reader:None The exam and treatment you received in the Emergency Department were for an urgent problem and are not intended as complete care. It is important that you follow up with a doctor, nurse practitioner, or physician?s legal support assistant for ongoing care. If your symptoms [...] Follow-up Instructions: With: Address: When: Hazel Grady [address] [place] [address] Business (2) In 7 days 07/21/2023 In the event that this physician does not participate in your insurance network, please consult with your insurance company to find a nearby participating provider. Patient Education Materials: Viral Illness, Adult; Otitis Media, Adult A MESSAGE TO ALL PATIENTS REGARDING OPIOIDS PRESCRIPTION OPIOIDS: WHAT YOU NEED TO KNOW Prescription opioids can be used to help relieve noeiwjgj-gd-oljsyw pain and are often prescribed following a [...] be struggling with addiction, tell your health post acute care nurse practitioner and ask for guidance or call [employer]?S National Helpline at 6-425-089-DENO. (more content not included)... Normal [facility] Influenza A&B Agon 3 Influenzae A Ag Negative Normal Negative [facility] Comment on above: Performed By: #### 2 [id number] #### [facility] [address] [place] [address] Influenzae B Ag Negative Normal Negative [facility] Comment on above: Result Comment: Test sensitivity and specificity vary for age group, specimen type, antigen types, and prevalence of disease. Test results must be evaluated in conjunction with other clinical data available to the physician. Individuals who received nasally administered Influenza A vaccine may have positive test results up to 3 days after vaccination. Performed By: #### 2 [id number], [id number] #### [facility] [address] [place] [address] Prescriptions/Work Noteson 1 09-14-2022 Prescriptions/Work Notes [id number] 0TIFF Normal [facility] Rapid COVID Antigen ([facility])on 07-14-2023 Rapid COV Int NEG Ctl Pass Normal [facility] Comment on above: Performed By: #### 2 [id number], [id number] #### [facility] [address] [place] [address] Rapid COV Int POS Ctl Pass Normal [facility] Comment on above: Performed By: #### 2 [id number], [id number] #### [facility] [address] [place] [address] SARS-CoV+SARS-CoV-2 (COVID-19) Ag IA.rapid Ql (Resp) Not detected Normal Not Detected [facility] Comment on above: Result Comment: The [employer] System for Rapid Detection of SARS-CoV-2 is [...] or revoked sooner. Performed By: #### 2 [id number], [id number] #### [facility] [address] [place] [address] Resp.syn.virus (Rsv)on 07-14 RSV Ag IA.rapid Ql (Nph) Negative Normal Negative [facility] Comment on above: Performed By: #### 2 [id number], [id number] #### [facility] [address] [place] [address] XR Chest Single Viewon 07-14 XR Chest [...] in mGy = na DAP = na [facility] Formson 12-24-2022 Forms [id number]:[id number] [facility] Vital Signs Date Time Vital Sign Value Performing Clinician Facility 09-21-2024 16:43-0500 Body weight 136.9 kg Maryanne FOWLER Work Phone: [facility] 09-21-2024 16:43-0500 Diastolic blood pressure 76 mm[Hg] Maryanne FOWLER Work Phone: [facility] 09-21-2024 16:43-0500 Systolic blood pressure 118 mm[Hg] Maryanne FOWLER Work Phone: [facility] 08-17-2024 11:52-0500 Body weight 138.8 kg Yogesh Ally DO Work Phone: [facility] 08-17-2024 11:52-0500 Diastolic blood pressure 78 mm[Hg] Yogesh Ally DO Work Phone: [facility] 08-17-2024 11:52-0500 Systolic blood pressure 122 mm[Hg] Yogesh Ally DO Work Phone: [facility] 07-18-2024 11:15-0500 Body weight 139.71 kg [facility] Nurse [facility] 07-18-2024 11:15-0500 Diastolic blood pressure 74 mm[Hg] [facility] Nurse [facility] 07-18-2024 11:15-0500 Systolic blood pressure 118 mm[Hg] [facility] Nurse [facility] 09-17-2023 09:35-0500 Body height 175.26 cm Tiesha Remigio Other [facility] Other 09-17-2023 09:35-0500 Body mass index (BMI) [Ratio] 40.16 kg/m2 Tiesha Flood Other [facility] Other 09-17-2023 09:35-0500 Body temperature 99.2 [degF] Tiesha Flood Other [facility] Other 09-17-2023 09:35-0500 Body weight 123.38 kg Tiesha Flood Other [facility] Other 09-17-2023 09:35-0500 Respiratory rate 18 /min Tiesha Flood Other [facility] Other 09-17-2023 09:35-0500 SaO2% (BldA) [Mass fraction] 97 % Tiesha Flood Other [facility] Other 09-02-2023 09:30-0500 Body height 175.26 cm Sheree Cheung Other [facility] Other 09-02-2023 09:30-0500 Body mass index (BMI) [Ratio] 40.21 kg/m2 Sheree Cheung Other [facility] Other 09-02-2023 09:30-0500 Body weight 123.52 kg Sheree Cheung Other [facility] Other 09-02-2023 09:30-0500 Diastolic blood pressure 78 mm[Hg] Sheree Cheung Other [facility] Other 09-02-2023 09:30-0500 Respiratory rate 18 /min Sheree Cheung Other [facility] Other 09-02-2023 09:30-0500 SaO2% (BldA) [Mass fraction] 97 % Sheree Cheung Other [facility] Other 09-02-2023 09:30-0500 Systolic blood pressure 120 mm[Hg] Sheree Cheung Other [facility] Other 07-27-2023 09:30-0500 Body height 175.26 cm Sheree Cheung Other [facility] Other 07-27-2023 09:30-0500 Body mass index (BMI) [Ratio] 40.02 kg/m2 Sheree Cheung Other [facility] Other 07-27-2023 09:30-0500 Body weight 122.93 kg Sheree Cheung Other [facility] Other 07-27-2023 09:30-0500 Diastolic blood pressure 76 mm[Hg] Sheree Cheung Other [facility] Other 07-27-2023 09:30-0500 Respiratory rate 16 /min Sheree Cheung Other [facility] Other 07-27-2023 09:30-0500 SaO2% (BldA) [Mass fraction] 98 % Sheree Cheung Other [facility] Other 07-27-2023 09:30-0500 Systolic blood pressure 120 mm[Hg] Sheree Cheung Other [facility] Other 01-21-2022 15:35-0400 Body height 175.26 cm Almaz Huerta Other [facility] Other 01-21-2022 15:35-0400 Body mass index (BMI) [Ratio] 30.86 kg/m2 Almaz Huerta Other [facility] Other 01-21-2022 15:35-0400 Body temperature 97.3 [degF] Almaz Huerta Other [facility] Other 01-21-2022 15:35-0400 Body weight 94.8 kg Almaz Huerta Other [facility] Other 01-21-2022 15:35-0400 Diastolic blood pressure 73 mm[Hg] Almaz Huerta Other [facility] Other 01-21-2022 15:35-0400 Respiratory rate 16 /min Almaz Huerta Other [facility] Other 01-21-2022 15:35-0400 SaO2% (BldA) [Mass fraction] 97 % Almaz Huerta Other [facility] Other 01-21-2022 15:35-0400 Systolic blood pressure 133 mm[Hg] Almaz Deanna Other [facility] Other Encounters Encounter Date Encounter Type Care Provider Facility Start: 09-21-2024 End: 09-21-2024 flow sheet Maryanne FOWLER Work Phone: [facility] Comment on above: STD exposure; Vaginal discharge; Second trimester ; 16 weeks gestation of ; Screening, , for anatomic survey; Diabetes mellitus screening Start: 09-21-2024 End: 09-21-2024 Bamboo flowsheet Maryanne FOWLER Work Phone: [facility] Start: 09-21-2024 End: 09-21-2024 Bamboo flowsheet Maryanne FOWLER Work Phone: [facility] Start: 08-17-2024 [...] Start: 08-05-2024 End: 08-05-2024 ambulatory Sheree Cheung Facility:[facility] Start: 07-18-2024 End: 07-18-2024 ambulatory [facility] Ally Nurse [facility] Comment on above: GA: 7w3d Start: 06-26-2024 End: 06-26-2024 [facility] Result Encounter Maryanne FOWLER Work Phone: [facility] Unsolicited Start: 06-26-2024 End: 06-26-2024 [facility] Result Encounter Maryanne FOWLER Work Phone: [facility] Unsolicited Start: 09-17-2023 End: 09-17-2023 ambulatory Tiesha Flood Other [facility] Other Start: 09-17-2023 Office outpatient vi sit 15 minutes Tiesha Flood [facility] [place] Start: 09-02-2023 End: 09-02-2023 ambulatory Sheree Cheung Other [facility] Other Start: 09-02-2023 Office outpatient vi sit 25 minutes Sheree Cheung [facility] [place] Start: 07-27-2023 End: 07-27-2023 ambulatory Sheree Cheung Other [facility] Other Start: 07-27-2023 Encounter for genera l adult medical examination without abnormal findings Sheree Cheung [facility] [place] Start: 07-27-2023 Initial preventive medicine new pt age 18-39yrs Sheree Cheung [facility] [place] Start: 07-14-2023 End: 07-14-2023 Emergency department patient visit Dom Sarmiento [place] Start: 12-24-2022 ambulatory [facility] Start: 04-06-2022 End: 04-06-2022 ambulatory HAZEL CORNELIA YSABEL Facility: Start: 01-21-2022 (URG) Urgent Care Visit Almaz romero [facility] [place] Start: 01-21-2022 End: 01-21-2022 ambulatory Almaz Huerta Other [facility] Other Procedures Date Procedure Procedure Detail Performing Clinician Start: 09-21-2024 Urnls dip stick/tabl et rgnt non-auto w/o micrscp Maryanne FOWLER Work Phone: Start: 08-17-2024 Urnls dip stick/tabl et rgnt non-auto w/o micrscp Yogesh Canales DO Work Phone: Start: 08-05-2024 MLR HEMOGLOBIN A1C Core y Ally DO Work Phone: Start: 07-18-2024 End: 07-18-2024 Urnls dip stick/tablet rgnt non-auto w/o micrscp Yogesh Ally DO Work Phone: Start: 06-26-2024 [facility] PREG QUANT HCG Maryanne FOWLER Work Phone: Plan of Treatment Date Care Activity Detail Author Start: 10-18-2024 End: 10-18-2024 Patient encounter procedure 10/18/2024 2:30 PM EDT Routine [facility] [address] [place] [id number] Maryanne Whiteside [place] [facility] [place] [address] [facility] Start: 10-18-2024 End: 10-18-2024 Professional / ancillary services management 10/18/2024 1:00 PM EDT Ancillary Procedure [facility] [address] [place] [id number] [facility] Start: 09-21-2024 End: 09-21-2024 Patient encounter procedure 09/21/2024 3:20 PM EST Routine [facility] [address] [place] [id number] Maryanne Whiteside PA [address] [place] [address] Arrived [facility] Comment on above: Arrived Start: 09-21-2024 End: 11-19-2024 Alpha fetoprotein, maternal Alpha fetoprotein, maternal Lab Routine Screening, , for anatomic survey Expected: 09/21/2024 (Approximate), Expires: 11/19/2024 [facility] Comment on above: Expected: 09/21/2024 (Approximate), Expires: 11/19/2024 Start: 09-21-2024 End: 09-21-2025 Measurement of glucose 1 hour after glucose challenge for glucose tolerance test Glucose tolerance, 1 hour Lab Routine Diabetes mellitus screening Expected: 09/21/2024 (Approximate), Expires: 09/21/2025 [facility] Comment on above: Expected: 09/21/2024 (Approximate), Expires: 09/21/2025 Start: 09-21-2024 End: 09-21-2025 US for US OB 14+ weeks anatomy scan Imaging Routine Screening, , for anatomic survey Expected: 09/21/2024, Expires: 09/21/2025 [facility] Comment on above: Expected: 09/21/2024 , Expires: 09/21/2025 Start: 09-21-2024 End: 09-21-2024 Patient encounter procedure 09/21/2024 9:30 AM EST Routine [facility] [address] [place] [id number] Maryanne Whiteside PA [address] [place] [address] [facility] Start: 08-17-2024 End: 08-17-2024 Patient encounter procedure [facility] Comment on above: Arrived Start: 07-18-2024 End: 07-18-2025 ABO/Rh ABO/Rh Lab Routine Missed menses , unspecified gestational age Expected: 07/18/2024 (Approximate), Expires: 07/18/2025 [facility] Comment on above: Expected: 07/18/2024 (Approximate), Expires: 07/18/2025 Start: 07-18-2024 End: 07-18-2025 Blood type and Indirect antibody screen panel - Blood Type and screen Lab Routine Missed menses , unspecified gestational age Expected: 07/18/2024 (Approximate), Expires: 07/18/2025 [facility] Work Phone: Comment on above: Expected: 07/18/2024 (Approximate), Expires: 07/18/2025 Start: 07-18-2024 End: 07-18-2025 Drugs of abuse panel - Urine by Screen method Rapid drug screen, urine Lab Routine , unspecified gestational age Encounter for supervision of normal first in first trimester Expected: 07/18/2024 (Approximate), Expires: 07/18/2025 [facility] Comment on above: Expected: 07/18/2024 (Approximate), Expires: 07/18/2025 Start: 07-18-2024 End: 07-18-2025 US Pelvis transvaginal US OB transvaginal Imaging Routine Missed menses Expected: 07/18/2024 (Approximate), Expires: 07/18/2025 [facility] Comment on above: Expected: 07/18/2024 (Approximate), Expires: 07/18/2025 Start: 07-18-2024 End: 07-18-2024 ambulatory 07/18/2024 10:30 AM EST Initial [facility] [address] [place] [address] [facility] Start: 07-18-2024 End: 07-18-2024 Professional / ancillary services management 07/18/2024 10:00 AM EST Ancillary Procedure [facility] [address] [place] [address] [facility] Bacteria identified in Urine by Culture Urine culture Microbiology Routine Missed menses Ordered: 07/18/2024 [facility] Comment on above: Ordered: 07/18/2024 CBC W Auto Different ial panel - Blood CBC and differential Lab Routine Missed menses , unspecified gestational age Ordered: 07/18/2024 [facility] Comment on above: Ordered: 07/18/2024 CHLAMYDIA TRACHOMATI S (GENITO/STI) CHLAMYDIA TRACHOMATIS (GENITO/STI) Lab Routine STD exposure Vaginal discharge Ordered: 09/21/2024 [facility] Comment on above: Ordered: 09/21/2024 Hemoglobin A1c/Hemoglobin.total in Blood Hemoglobin A1c Lab Routine Missed menses , unspecified gestational age Ordered: 07/18/2024 [facility] Comment on above: Ordered: 07/18/2024 Hepatitis B virus surface Ag [Presence] in Serum or Plasma by Immunoassay Hepatitis B surface antigen Lab Routine Missed menses , unspecified gestational age Ordered: 07/18/2024 [facility] Comment on above: Ordered: 07/18/2024 Hepatitis C virus Ab [Presence] in Serum or Plasma by Immunoassay Hepatitis C antibody Lab Routine Missed menses , unspecified gestational age Ordered: 07/18/2024 [facility] Comment on above: Ordered: 07/18/2024 HIV-1/HIV-2 antigen/antibody combination immunoassay HIV-1 and HIV-2 antibodies Lab Routine Missed menses , unspecified gestational age Ordered: 07/18/2024 [facility] Comment on above: Ordered: 07/18/2024 Neisseria gonorrhoea e DNA [Presence] in Unspecified specimen by ISAURO with probe detection Neisseria gonorrhea DNA probe, direct Lab Routine STD exposure Vaginal discharge Ordered: 09/21/2024 [facility] Comment on above: Ordered: 09/21/2024 Reagin Ab [Presence] in Serum by RPR RPR Lab Routine Missed menses , unspecified gestational age Ordered: 07/18/2024 [facility] Comment on above: Ordered: 07/18/2024 Rubella antibody, IgG Rubella an tibody, IgG Lab Routine Missed menses , unspecified gestational age Ordered: 07/18/2024 [facility] Comment on above: Ordered: 07/18/2024 SURESWAB(R) ADVANCED VAGINITIS PLUS, TMA SURESWAB(R) ADVANCED VAGINITIS PLUS, TMA Pathology and Cytology Routine STD exposure Vaginal discharge Ordered: 09/21/2024 [facility] Work Phone: Comment on above: Ordered: 09/21/2024 Immunizations Immunization Date Immunization Notes Care Provider Chase sequeira 03-17-2021 Human Papillomavirus 9-valent vaccine Almaz Deanna Other [facility] Other 02-10-2021 Do not use COVID-19 Pfizer 2 dose Lamaz Deanna Other [facility] Other 08-04-2016 Human Papillomavirus 9-valent vaccine Almaz Deanna Other [facility] Other 05-22-2016 Human Papillomavirus 9-valent vaccine Almaz Deanna Other [facility] Other 07-29-2015 hepatitis A vaccine, pediatric/adolescent dosage, 2 dose schedule Almaz Deanna Other [facility] Other 04-02-2007 hepatitis A vaccine, pediatric/adolescent dosage, 2 dose schedule Almaz Deanna Other [facility] Other 04-14-2005 diphtheria, tetanus toxoids and acellular pertussis vaccine, 5 pertussis antigens Almaz Deanna Other [facility] Other 10-09-2004 measles, mumps and rubella virus vaccine Almaz Deanna Other [facility] Other 04-21-2004 DTaP-hepatitis B and poliovirus vaccine Almaz Deanna Other [facility] Other 04-21-2004 haemophilus influenz ae type b vaccine, PRP-T conjugate Almaz Deanna Other [facility] Other 02-19-2004 DTaP-hepatitis B and poliovirus vaccine Almaz Deanna Other [facility] Other 02-19-2004 haemophilus influenz ae type b vaccine, PRP-T conjugate Almaz Deanna Other [facility] Other 2003 DTaP-hepatitis B and poliovirus vaccine Almaz Deanna Other [facility] Other 2003 haemophilus influenz ae type b vaccine, PRP-T conjugate Almaz Deanna Other [facility] Other 2003 hepatitis B vaccine, pediatric or pediatric/adolescent dosage Almaz Deanna Other [facility] Other Payers Date Payer Category Payer Self-pay 2021 Private Health Insurance 2003 Unknown [id number] 2003 Unknown [id number] 2003 Unknown [id number] [id number] 1959 Unknown [id number] 1959 Unknown [id number] 1959 Unknown [id number] 2.16.84 [id number] Unknown [id number] Social History Date Type Detail Facility Unknown if ever smoked [facility] Other Sex Assigned At [facility] Other Tobacco smoking status [facility] Tobacco smoking consumption unknown [facility] Start: 2003 Sex assigned at Not on file [facility] Start: 06-10-2024 [facility] Clinical Notes 01-21-2022 to 09-21-2024 JANETH Ji - 09/21/2024 3:20 PM Lawrence Rodríguez LPN - 08/17/2024 11:20 AM Keesha Oliveira MA - 07/18/2024 10:30 AM EST Note Date & Type Note Facility 09-21-2024 History of Presen t illness Narrative Reason for Appointment: Patient ID: Frances Doe is a 18 y.o. female who presents for Routine Visit Patient presents today for Return OB appointment. MEDICATIONS Current Outpatient Medications Medication Instructions promethazine (PHENERGAN) 12.5 mg, Oral, Every 6 hours PRN, Take 1 tablet by mouth every 6 hours as needed for nausea. sertraline (ZOLOFT) 50 mg, Nightly ALLERGIES Allergies [...] SYSTEMS Review of Systems: Review of Systems Constitutional: Negative. HENT: Negative. Eyes: Negative. Respiratory: Negative. Cardiovascular: Negative. Gastrointestinal: Negative. Genitourinary: Negative. Musculoskeletal: Negative. Skin: Negative. Neurological: Negative. All other systems reviewed and are negative. Hematological: Negative. Endocrine: Negative. Allergic/Immunologic: Negative. OBJECTIVE Objective: Physical Exam Constitutional: Appearance: Normal appearance. She is normal weight. HENT: Head: Normocephalic. Cardiovascular: Rate and Rhythm: Normal rate. Pulses: Normal pulses. Pulmonary: Effort: Pulmonary effort is normal. Breath sounds: Normal breath sounds. Abdominal: Palpations: Abdomen is soft. Musculoskeletal: General: Normal range of motion. Neurological: General: No focal deficit present. Mental Status: She is alert and oriented to person, place, and time. Psychiatric: Mood and Affect: Mood normal. Behavior: Behavior normal. Thought Content: Thought content normal. Judgment: Judgment normal. Vitals and nursing note reviewed. Vitals: There is no height or weight on file to calculate BMI. BP: Patient's last menstrual period was 05/09/2024. ASSESSMENT & PLAN ICD-10-CM 1. STD exposure Z20.2 SURESWAB(R) ADVANCED VAGINITIS PLUS, TMA CHLAMYDIA TRACHOMATIS (GENITO/STI) Neisseria gonorrhea DNA probe, direct 2. Vaginal discharge N89.8 SURESWAB(R) ADVANCED VAGINITIS PLUS, TMA CHLAMYDIA TRACHOMATIS (GENITO/STI) Neisseria gonorrhea DNA probe, direct 3. Second trimester Z34.92 POCT urinalysis dipstick manually resulted 4. 16 weeks gestation of Z3A.16 5. Screening, , for anatomic survey Z36.89 US OB 14+ weeks anatomy scan Alpha fetoprotein, maternal US OB 14+ weeks anatomy scan Alpha fetoprotein, maternal 6. Diabetes mellitus screening Z13.1 Glucose tolerance, 1 hour Glucose tolerance, 1 hour Return OB/Annual Exam: Patient presents today for a cultures exam/routine obstetrics appointment. Patient is currently 16w5d . Patient is doing well and states she has no complaints. cultures was obtained without difficulty and patient was given [facility] order to have obtained. Orders Placed This Encounter Procedures US OB 14+ weeks anatomy scan CHLAMYDIA TRACHOMATIS (GENITO/STI) Neisseria gonorrhea DNA probe, direct Alpha fetoprotein, maternal Glucose tolerance, 1 hour POCT urinalysis dipstick manually resulted Follow Up: Patient is to return to our office in 4 weeks for routine OB appointment Documented by JANETH Ji on behalf of: JANETH Ji documented in this encounter [facility] 08-17-2024 History of Presen t illness Narrative [...] nursing note reviewed. Exam conducted with a rigging up man present. Vitals: There is no height or [...] or undercooked meat, and stay away from [facility]. Patient has been consulted regarding any further [...] Yogesh Canales DO documented in this encounter [facility] 07-18-2024 History of Presen t illness Narrative [...] or undercooked meat, and stay away from [facility]. Patient has also been advised to not [...] Jazmyne Oliveira MA documented in this encounter [facility] 09-17-2023 Evaluation note Encounter Date Diagnosis Assessment [...] understanding and is agreeable to treatment plan. [facility] Other 01-25-2024 Evaluation note* Encounter Date Diagnosis Assessment Notes Treatment Notes Treatment Clinical Notes Aug, MATTHIAS (generalized anxiety disorder) (ICD-10 [...] pressure, sooner if needed. Aug, Other This documen tation is being amended on 09/06/23 due to an internal data corruption event that occurred on 09/02/23. This data corruption event was NOT the result of any breach, fraud, or malicious third constitution party actors and no personal patient information was compromised. [facility] Other 12-19-2023 Evaluation note* Encounter Date Diagnosis Assessment Notes Treatment Notes Treatment Clinical Notes Jul, Well adult exam (ICD-10 - [...] to start Zoloft daily for management with depression/anxiety. Medication profile and possible SE reviewed with [...] (ICD-10 - F32.1) See above treatment plan. [facility] Other 06-15-2022 Evaluation note* Encounter Date Diagnosis Assessment Notes Treatment Notes Treatment Clinical Notes Jan, Pre-employment examination (ICD-10 - Z02.1) [facility] Other Evaluation note* Diagnosis Missed menses , unspecified gestational age Encounter for supervision of normal first in first trimester Nausea and vomiting in Unspecified vomiting of , unspecified as to episode of care [facility] First trimester state, incidental 11 weeks gestation of headache, antepartum [facility] Diagnosis STD exposure Vaginal discharge Leukorrhea, not specified as infective Second trimester state, incidental 16 weeks gestation of Screening, , for anatomic survey Encounter for anatomic survey Diabetes mellitus screening Screening for diabetes mellitus [facility] N[facility] - Reported* Type Description Date Medical History vertigo [facility] Other Reason for referral (narrative)* Reason Refer to [facility] or counseling for anxiety and depression Diagnosis 1 MATTHIAS (generalized anx iety disorder) (F41.1) Referral Organization [facility] Family Carolyne Wick Referring Provider First Name Sheree Referring Provider Last Name Jonatan Referring Provider Specialty Nurse Bree grullon Referred Provider Specialty Psychiatry Referral Priority Routine [employer] [facility] [employer] Other Summary Purpose Family History No Family [...] content) DATE CREATED AUTHOR 04/10/2022 [facility] DATE CREATED AUTHOR AUTHOR'S ORGANIZ ATION 08/13/2023 [facility] DATE CREATED AUTHOR AUTHOR'S ORGANIZ ATION 08/09/2024 [facility] DATE CREATED AUTHOR AUTHOR'S ORGANIZ ATION 08/22/2024 [facility] [employer] Care Teams (unrecognized sec tion and content) [employer] Relationship Specialty Start Date End Date Hazel Grady MD [address] [place] [address] PCP - General Family Medicine 07/18/24 [employer] Relationship Specialty Start Date End Date Hazel Grady MD [address] [place] [address] PCP - [facility] 07/18/24 [employer] Relationship Specialty Start Date End Date Hazel Grady MD [address] [place] [id number] PCP - [facility] 07/18/24 [employer] Relationship Specialty Start Date End Date Hazel Grady MD [address] [place], [place] [id number] PCP - [facility] 07/18/24 [employer] Relationship Specialty Start Date End Date Hazel Grady MD [address] [place] [address] [id number] PCP - [facility] 07/18/24 FOR RECORDS PERTAINING TO PATIENTS WHO [...] BE BASED ON THE PRIMARY CLINICAL RECORDS. [facility] [employer] [facility]. provides no warranty or guarantee of the accuracy or completeness of information in this document.
[2024-09-22 17:24] LABS: Glucose 1 Hour 114 mg/dL (<130)
[2024-09-26 23:08] LABS: AFP Value 24.2 ng/mL (.); Gest. Age on Collection Date 16.9 weeks (.); Gestat. Age Based On Ultrasound (.); Insulin Dep Diabetes No (.); Maternal Age At EDD 21.4 yr (.); OSBR Risk 1 IN 10000 (.); Results Report (.)
== END 2024-09-22 15:34 | disposition home or self-care (01) ==
PROVIDERS: PCP Family Medicine; Visit Provider Physician Assistant
DX: Z34.92 Encounter for supervision of normal pregnancy, unspecified, second trimester (principal); Z36.89 Encounter for other specified antenatal screening
CPT/HCPCS: 36415; 82105; 82950

== ENCOUNTER 2024-11-30 12:59 | Outpatient (OUT) | payer OTHER, SELFPAY ==
[2024-11-30 14:28] LABS: Basophils Percent Auto 0.2 % (0.2-2.0); Eosinophils Percent Auto 0.3 % (0.9-7.0); Hemoglobin 11.2 g/dL (12.0-16.0); Immature Granulocytes Abs Auto 0.05 10^3/uL (0.00-0.03); Immature Granulocytes Pct Auto 0.4 % (0.0-0.5); Lymphocytes Absolute Auto 2.1 10^3/uL (1.2-3.8); Lymphocytes Percent Auto 17.3 % (20.5-60.0); Mean Corpuscular HGB Conc 32.9 g/dL (29.9-35.2); Mean Corpuscular Hemoglobin 27.7 pg (26.7-34.0); Mean Platelet Volume 9.1 fL (9.5-13.5); Monocytes Absolute Auto 0.8 10^3/uL (0.3-0.8); Monocytes Percent Auto 6.6 % (1.7-12.0); Neutrophils Absolute Auto 8.9 10^3/uL (1.4-6.5); Neutrophils Percent Auto 75.2 % (43.0-75.0); Platelet Count 281 10^3/uL (150-450); Red Blood Count 4.05 10^6/uL (4.20-5.40); Red Cell Distribution Width 12.8 % (11.0-15.0); White Blood Count 11.8 10^3/uL (4.0-11.0)
[2024-11-30 14:39] LABS: Glucose 1 Hour 96 mg/dL (<130)
== END 2024-11-30 13:00 | disposition home or self-care (01) ==
LOC: LAB 13:02
PROVIDERS: PCP Family Medicine; Visit Provider Obstetrics & Gynecology
DX: Z13.1 Encounter for screening for diabetes mellitus (principal)
CPT/HCPCS: 36415; 82950; 85025

== ENCOUNTER 2024-12-15 22:52 | Observation (INO) | payer OTHER, SELFPAY ==
--- OUTSIDE RECORDS SUMMARY | 2024-12-15 22:56 | XMS_ITS | CCD ---
Author Organization [facility] Care Team Providers Care Corporate Risk Analyst Name Role Phone Almaz Huerta Unavailable HAZEL GRADY Primary Care Unavailable CHRISTIANO TATUM Attending Unavailable CHRISTIANO TATUM Consulting Unavailable CHRISTIANO TATUM Admitting Unavailable Sheree Cheung Unavailable Dom Sarmiento Attending Unavailable Tiesha Flood Unavailable Unavailable Primary Care Provider UnavailHazel Young MD Primary Care Provider [phone] Sheree Cheung Primary Care Unavailable Yogesh Canales Attending Unavailable Yogesh Canales Admitting Unavailable MARYANNE COVARRUBIAS Attending Unavailable MARYANNE COVARRUBIAS Attending Unavailable YOGESH CANALES Attending Unavailable LYNETTE GUNTER Attending Unavailable YOGESH CANALES Attending Unavailable Allergies Allergy Classification Reported Allergen(s) Allergy Type Date of Onset Reaction(s) Facility (20 sources) Amoxicillin; Translations: [amoxicillin] Drug Allergy 4 swelling, Rash [facility] Repository (1 source) Amoxicillin Drug Allergy 6 [facility] Repository (1 source) Amoxicillin Drug Allergy 4 [facility] Repository Medications Current Medications Medication [...] Active magnesium oxide 400 mg oral tablet (10 sources) Start: 08-17-2024 End: 09-16-2024 take 1 tablet by mouth once daily magnesium oxide (Mag-Ox) 400 MG tablet Take 1 tablet by mouth Daily 09/16/2024 Active promethazine hydrochloride 12.5 mg oral tablet (15 sources) Phenothiazine Start: 08-17-2024 take 1 tablet [...] 08/17/2024 Active sertraline 50 mg oral tablet (18 sources) Serotonin Reuptake Inhibitor Start: 04-05-2024 take 1 tablet by mouth at bedtime sertraline (Zoloft) 50 MG tablet Take 50 mg by mouth at bedtime 04/05/2024 Active Start: 07-27-2023 take 1 tablet by shyann th once daily Sertraline HCl 50 MG 1 tablet Orally Once a day at night for 30 days Jul, Active Completed/Discontinued Medications Medication Drug Class(es) Dates Sig (Normalized) Sig (Original) ondansetron 4 mg disintegrating oral tablet (7 sources) Serotonin-3 Receptor Antagonist Start: 07-18-2024 End: 08-17-2024 take 1 tablet by mouth every six hours for nausea ondansetron ODT (Zofran-ODT) 4 MG disintegrating tablet Indications: Nausea and vomiting in Take 1 tablet (4 mg) by mouth every 6 (six) hours if needed for nausea or vomiting 30 tablet 2 07/18/2024 08/17/2024 take 1 tablet by shyann th every six hours as needed for nausea and vomiting ondansetron (Zofran) 4 MG tablet Take 4 mg by mouth every 6 (six) hours if needed for nausea or vomiting Active Problems Active Problems Problem Classification Problem [...] related conditions, unspecified trimester] 08-17-2024 Episodic Other complications of (2 sources) size does not accord with dates; Translations: [Uterine size-date discrepancy, unspecified trimester] 12-06-2024 Episodic Other female genital disorders (2 sources) Vaginal discharge; Translations: [Other specified noninflammatory disorders of vagina] 09-21-2024 Episodic Other and delivery including normal (12 sources) ; Translations: [Encounter for supervision of normal , unspecified, unspecified trimester] 07-18-2024 Episodic Other screening for suspected conditions (not mental disorders or infectious disease) (6 sources) Patient encounter status; Translations: [Encounter for [...] [16 weeks gestation of ] 09-21-2024 Episodic Residual codes; unclassified (2 sources) Gestation period, 20 weeks; Translations: [20 weeks gestation of ] 10-18-2024 Episodic Residual codes; unclassified (2 sources) Gestation period, 24 weeks; Translations: [24 weeks gestation of ] 11-15-2024 Episodic Residual codes; unclassified (2 sources) Gestation period, 27 weeks; Translations: [27 weeks gestation of ] 12-06-2024 Episodic Past or Other Problems Problem Classification Problem Date Documented Da te Episodic/Chronic Administrative/social admission (1 source) Encounter for pre-employment examination Onset: 01-21-2022 Resolved: 01-21-2022 Episodic Results Test Name Value Interpretation Reference Range Facility Urinalysis macro (dipstick) panel (U)on 12-06-2024 Bilirubin, UA Negative Negative - 4(70) +++ mg/dL [facility] Blood, UA Negative Negative - 50 Sam/mcL [facility] Clarity, UA Clear [facility] re Color, UA Yellow [facility] Glucose, UA Negative Negative - 1999(110) ++++ mg/dL [facility] Interpretation and review of laboratory results Abnormal [facility] re Ketones, UA Positive Negative - 160(16) ++++ mg/dL [facility] Comment on above: trace Leukocytes, UA Trace Negative - 500+++ Supa/mcL [facility] Nitrite, UA Negative Negative - Positive [facility] pH, UA 5.5 5 - 9 [facility] e Protein, UA Negative Negative - 1999(20) ++++ mg/dL [facility] Spec Grav, UA 1.03 1 - 1.03 [facility] Urobilinogen, UA 0.2 0.2 - 12 mg/dL [facility] e ALL CBC WITH AUTO DIFFon BASOPHILS ABSOLUTE AUTO 0 [facility] Basophils/100 WBC (Bld) 0.2 % 0.2 - 2.0 % [facility] Eosinophils/100 WBC (Bld) 0.3 % Low 0.9 - 7.0 % [facility] Erythrocyte distribution width (RBC) [Ratio] 12.8 % 11.0 - 15.0 % [facility] Hematocrit (Bld) [Volume fraction] 34 % Low 36.0 - 48.0 % [facility] Hemoglobin (Bld) [Mass/Vol] 11.2 g/dL Low 12.0 - 16.0 g/dL [facility] IMMATURE GRANULOCYTES ABS AUTO 0.05 High [facility] Immature granulocytes/100 WBC (Bld) 0.4 % 0.0 - 0.5 % [facility] Interpretation and review of laboratory results Abnormal [facility] re LYMPHOCYTES ABSOLUTE AUTO 2.1 [facility] Lymphocytes/100 WBC (Bld) 17.3 % Low 20.5 - 60.0 % [facility] MCH (RBC) [Entitic mass] 27.7 pg 26.7 - 34.0 pg [facility] MCHC (RBC) [Mass/Vol] 32.9 g/dL 29.9 - 35.2 g/dL [facility] MCV (RBC) [Entitic vol] 84 fL 81.0 - 99.0 fL [facility] MONOCYTES ABSOLUTE AUTO 0.8 [facility] Monocytes/100 WBC (Bld) 6.6 % 1.7 - 12.0 % [facility] NEUTROPHILS ABSOLUTE AUTO 8.9 High [facility] Neutrophils/100 WBC (Bld) 75.2 % High 43.0 - 75.0 % [facility] Platelet mean volume (Bld) [Entitic vol] 9.1 fL Low 9.5 - 13.5 fL [facility] TBH EO # 0 [facility] TBH PLT 281 [facility] TBH RBC 4.05 Low [facility] Health[facility] e TBH WBC 11.8 High [facility] Healthcar e [facility] e US OB LIMITED 1+ FETUSESon 0 11-15-2024 US OB LIMITED 1+ FETUSES EXAM: US OB LIMITED 1+ FETUSES HISTORY: Follow up anatomy. COMPARISON: OB ultrasound 10/18/2024. TECHNIQUE: Two-dimensional transabdominal grayscale ultrasound imaging of the pelvis was performed. FINDINGS: Gestation: Single Presentation: Breech Cardiac Activity: 148 beats per minute Placental Location: Anterior with no sonographic abnormalities identified. Cervical canal: Not visualized Amniotic Fluid: Appears adequate ANATOMY LVOT: Unremarkable RVOT: Unremarkable IMPRESSION: 1. Single, live intrauterine gestation 24 weeks, 4 days by LMP. MONIQUE is 03/03/2025. 2. Unremarkable follow up anatomy of the outflow tracts. Interpreted by: Electronically signed by DOROTHY DUCKWORTH II, MD, PHD at 17-Nov-2024 06:24:10 AM [facility] Normal Not Available Comment on above: Order Comment: US OB INCOMPLETE ANATOMY Estimated Date of Delivery: 03/03/25 Gestational Age as of 11/01/2024: 22w4d Urinalysis macro (dipstick) panel (U)on 11-15-2024 Bilirubin, UA Negative Negative - 4(70) +++ mg/dL [facility] Healthcare Blood, UA Negative Negative - 50 Sam/mcL [facility] Healthcare Clarity, UA Clear [facility] Color, UA Yellow [facility] Glucose, UA Negative Negative - 1999(110) ++++ mg/dL [facility] Healthcare Interpretation and review of laboratory results Abnormal [facility] re Ketones, UA Negative Negative - 160(16) ++++ mg/dL [facility] Leukocytes, UA Trace Negative - 500+++ Supa/mcL [facility] Healthcare Nitrite, UA Negative Negative - Positive [facility] pH, UA 6.5 5 - 9 [facility] Healthcar e Protein, UA Trace Negative - 1999(20) ++++ mg/dL [facility] Healthcare Spec Grav, UA 1.02 1 - 1.03 [facility] Urobilinogen, UA 0.2 0.2 - 12 mg/dL [facility] Healthcare [facility] Health[facility] e Urinalysis macro (dipstick) panel (U)on 10-18-2024 Bilirubin, UA Negative Negative - 4(70) +++ mg/dL [facility] Blood, UA Negative Negative - 50 Sam/mcL [facility] Healthcare Clarity, UA Clear [facility] Color, UA Yellow [facility] Glucose, UA Negative Negative - 1999(110) ++++ mg/dL [facility] Interpretation and review of laboratory results Normal [facility] re Ketones, UA Negative Negative - 160(16) ++++ mg/dL [facility] Healthcare Leukocytes, UA Negative Negative - 500+++ Supa/mcL [facility] Healthcare Nitrite, UA Negative Negative - Positive [facility] pH, UA 6 5 - 9 [facility] Protein, UA Negative Negative - 1999(20) ++++ mg/dL [facility] Healthcare Spec Grav, UA 1.03 1 - 1.03 [facility] Urobilinogen, UA 0.2 0.2 - 12 mg/dL [facility] RECURRENT VAGINITIS (HTRX)on 09-23-2024 ATOPOBIUM VAGINAE 21.837 Abnormal [facility] ATOPOBIUM VAGINAE Detected Abnormal [facility] BVAB 2,3 (BACTERIAL VAGINOSIS ASSOCIATED BACTERIA 2, 3); MOBILUNCUS SPP 14.391 Abnormal [facility] BVAB 2,3 (BACTERIAL VAGINOSIS ASSOCIATED BACTERIA 2, 3); MOBILUNCUS SPP Detected Abnormal [facility] Healthcare WILBERT ALBICANS, PARAPSILOSIS, TROPICALIS 0 [facility] WILBERT ALBICANS, PARAPSILOSIS, TROPICALIS Not detected [facility] WILBERT GLABRATA 0 [facility] WILBERT GLABRATA Not detected [facility] WILBERT KRUSEI 0 [facility] WILBERT KRUSEI Not detected [facility] CHLAMYDIA TRACHOMATIS 0 [facility] CHLAMYDIA TRACHOMATIS Not detected [facility] ERMB, C; MEFA 22.056 Abnormal [facility] Health care ERMB, C; MEFA Detected Abnormal [facility] care GARDNERELLA VAGINALIS 27.529 Abnormal [facility] GARDNERELLA VAGINALIS Detected Abnormal [facility] Interpretation and review of laboratory results Abnormal [facility] re MEGASPHAERA (TYPES 1, 2) 15.923 Abnormal [facility] Healthcare MEGASPHAERA (TYPES 1, 2) Detected Abnormal [facility] Healthcare MYCOPLASMA GENITALIUM 0 [facility] MYCOPLASMA GENITALIUM Not detected [facility] NEISSERIA GONORRHOEAE 0 [facility] NEISSERIA GONORRHOEAE Not detected [facility] TET B, TET M 16.766 Abnormal [facility] Healthc are TET B, TET M Detected Abnormal [facility] Healthc are TRICHOMONAS VAGINALIS 0 [facility] TRICHOMONAS VAGINALIS Not detected [facility] GLUCOSE 1 HOURon 09-22-2024 Glucose [Mass/Vol] 114 mg/dL NINF - 13 0 mg/dL [facility] US OB 14+ WEEKS ANATOMY SCAN on 09-21-2024 US OB 14+ WEEKS ANATOMY SCAN EXAM: US OB 14+ WEEKS ANATOMY SCAN HISTORY: anatomy. COMPARISON: None available. TECHNIQUE: Two-dimensional transabdominal grayscale ultrasound imaging of the pelvis was performed. Exam limited due to patient body habitus. FINDINGS: Gestation: Single Presentation: Transverse Cardiac Activity: 161 beats per minute Placental Location: Anterior with no sonographic abnormalities identified. Distance from Placental Tip to Cervix: 8.6 cm Cervical Length: 3.3 cm Amniotic Fluid: Appears adequate MEASUREMENTS: BPD: 4.9 cm EGA: 20 weeks 5 days HC: 19.1 cm EGA: 21 weeks 2 days AC: 16.2 cm EGA: 21 weeks 2 days FL: 3.5 cm EGA: 21 weeks 1 days HC/AC Ratio: 1.17 The gestational age by today's ultrasound is 21 weeks 1 days (+/- 10 days gestation). Estimated Weight: 410 grams, +/- 61 grams ( 0 lb 14 oz). Weight Percentile for gestational age: 81 % ANATOMY C-Spine: Unremarkable T-Spine: Unremarkable L-Spine: Unremarkable Sacrum: Unremarkable Four Chamber Heart: Unremarkable LVOT: Not visualized RVOT: Not visualized Stomach: Unremarkable Kidneys: Unremarkable Bladder: Unremarkable Diaphragm: Unremarkable Cord insertion: Unremarkable Cord vessels: Not visualized Lateral Ventricles: Unremarkable Cerebellum: Unremarkable Cisterna Magna: Unremarkable Posterior Fossa: Unremarkable Right Femur: Unremarkable Left Femur: Unremarkable Right Tib/Fib: Unremarkable Left Tib/Fib: Unremarkable Right Rad/Ulnar: Unremarkable Left Rad/Ulnar: Unremarkable Right Humerus: Unremarkable Left Humerus: Unremarkable Nose/Lips: Unremarkable Orbits: Unremarkable IMPRESSION: 1. Single, live intrauterine gestation 20 weeks, 4 days by LMP. Today's ultrasound measurements correlate with a gestational age of 21 weeks 1 days. Estimated weight is 410 grams, +/- 61 grams ( 0 lb 14 oz) which correlates to 81 %. MONIQUE is 02/27/2025. 2. Unremarkable anatomy with limited visualization of the outflow tracts and cord vessels. A short-term follow-up ultrasound is recommended. Electronically Signed:Electronically signed by DOROTHY DUCKWORTH II, MD, PHD at 19-Oct-2024 09:01:31 AM [facility] Normal Not Available Comment on above: Order Comment: US OB ANATOMY SINGLE W US OB CERVICAL LENGTH Estimated Date of Delivery: 03/03/25 Gestational Age as of 09/21/2024: 16w5d Urinalysis macro (dipstick) panel (U)Ordered By: Vicky Rodríguez on 09-21-2024 Bilirubin, UA Negative Negative - 4(70) +++ mg/dL [facility] Blood, UA Negative Negative - 50 Sam/mcL [facility] Clarity, UA Clear [facility] Color, UA Yellow [facility] Glucose, UA Negative Negative - 2000(110) ++++ mg/dL [facility] Interpretation and review of laboratory results Normal [facility] re Ketones, UA Negative Negative - 160(16) ++++ mg/dL [facility] Leukocytes, UA Negative Negative - 500+++ Supa/mcL [facility] Nitrite, UA Negative Negative - Positive [facility] pH, UA 7.5 5 - 9 [facility] e Protein, UA Negative Negative - 1999(20) ++++ mg/dL [facility] Spec Grav, UA 1.02 1 - 1.03 [facility] Urobilinogen, UA 0.2 0.2 - 12 mg/dL [facility] Urinalysis macro (dipstick) panel (U)on 08-17-2024 Bilirubin, UA Negative Negative - 4(70) +++ mg/dL [facility] Blood, UA Negative Negative - 50 Sam/mcL [facility] Clarity, UA Clear [facility] re Color, UA Yellow [facility] Glucose, UA Negative Negative - 1999(110) ++++ mg/dL [facility] Interpretation and review of laboratory results Abnormal [facility] re Ketones, UA Negative Negative - 160(16) ++++ mg/dL [facility] Leukocytes, UA Positive Negative - 500+++ Supa/mcL [facility] Comment on above: small Nitrite, UA Negative Negative - Positive [facility] pH, UA 6 5 - 9 [facility] Protein, UA Negative Negative - 1999(20) ++++ mg/dL [facility] Spec Grav, UA 1.03 1 - 1.03 [facility] Urobilinogen, UA 0.2 0.2 - 12 mg/dL [facility] MLR HEMOGLOBIN A1Con 024 Glucose [Mass/Vol] 111 mg/dL [facility]althcare HbA1c (Bld) [Mass fraction] 5.5 % 4.5 - 6.2 % [facility] Comment on above: ADA RECOMMENDED LIMI T 4.0 - 6.0 ADA THERAPEUTIC TARGET < 7.0 ACTION SUGGESTED > 7.0 [facility] Urine Cultureon 08-05-2024 Bacteria identified Cx Nom (U) <9,000 colonies/ml mixed bacterial skin contaminants 2 Days PERFORMED BY: [facility] Román [place] [address] PATHOLOGIST [employer] ELICEO SPENCER M.D. Normal [facility] Comment on above: Performed By: #### C UU #### [facility] [address] HCG ( test) Ql (U)o n 07-18-2024 Interpretation and review of laboratory results Abnormal [facility] Healthca re Preg Test, Ur Positive Negative [facility] care [facility] Urinalysis macro (dipstick) panel (U)on 07-18-2024 Bilirubin, UA Negative Negative - 4(70) +++ mg/dL [facility] Blood, UA Negative Negative - 50 Sam/mcL [facility] Clarity, UA Clear [facility] Health[facility] re Color, UA Yellow [facility] Glucose, UA Negative Negative - 1999(110) ++++ mg/dL [facility] Interpretation and review of laboratory results Normal [facility] [employer] re Ketones, UA Negative Negative - 160(16) ++++ mg/dL [facility] Leukocytes, UA Negative Negative - 500+++ Supa/mcL [facility] Nitrite, UA Negative Negative - Positive [facility] pH, UA 6.5 5 - 9 [facility] [email or web address] e Protein, UA Negative Negative - 1999(20) ++++ mg/dL [facility] Spec Grav, UA 1.02 1 - 1.03 [facility] Urobilinogen, UA 0.2 0.2 - 12 mg/dL [facility]H PREG QUANT HCGon 06-26-2 024 HCG QUANTITATIVE 203 mIU/mL [facility]care Comment on above: 5-50 0.2-1 WEEK 50-500 1-2 WEEKS 100-5,000 2-3 WEEKS 500-10,000 3-4 WEEKS 1,000-50,000 4-5 WEEKS 10,000-100,000 5-6 WEEKS 15,000-200,000 6-8 WEEKS 10,000-100,000 2-3 MONTHS [facility] Healthcar e Quick Strepon 09-17-2023 S. pyogenes Org specific cx Ql (Throat) positve [employer] Other Quick Strep [employer] Other Test, Urineon 08-11 Beta HCG ( test) Ql (U) Negative [employer] Other Capillary Glucose POCon Glucose [Mass/Vol] 94 mg/dL Normal 55-99 [facility] Comment on above: Result Comment: Loretta mcneal RN/ Performed By: #### 2 [id number] #### [facility] [address] [place] [id number] Consent for Treatmenton Consent for Treatment [id number] 0TIFF Normal [facility] Discharge Instructionson Discharge Instructions [id number] 0TIFF Normal [facility] ED Clinical Summaryon 2022 ED Clinical Summary [address] [address] ED Clinical Summary Person Information [facility] Age[facility] 17 Years : 2005 Sex: Female Language: French PCP: Hazel Grady MD Marital Status: Single [...] 07/14/2023 03:42:20 07/14/2023 03:42:20 07/14/2023 03:42:20 ADDRESS: [address] [place] [address] [address] [place] [id number] PHYS DOC NOTES: MEDICAL INFORMATION: Prescriptions Given: New Medications [id number], [address], [place] [id number], [phone] azithromycin (azithromycin 250 mg Tab) 1 Tablets By Mouth every day for 4 Days. Refills: 0. PATIENT EDUCATION INFORMATION: Instructions: Viral Illness, Adult; Otitis Media, Adult Follow up: With: Address: When: Hazel Gutierrez[address] [place] [address] Business (2) In 7 days 07/21/2023 DIAGNOSIS: AOM (acute otitis media); Viral illness Normal [facility] ED Note-Physicianon 07-14-20 ED Note-Physician Basic Information Time Seen: Torsten Dom Nadya 07/14/2023 01:56 Chief Complaint Ear pain and [...] and Complexity of Problems Differential Diagnosis: [] MDM Data External documents reviewed: N/A My EKG [...] day(s), # 4 tab(s), Refills(s) 0, Pharmacy: [id number], 175, cm, 07/13/23 23:42:00 EST, Height/Length Dosing, 121.7, kg, 07/13/23 23:42:00 EST, Weight Dosing Capillary Glucose POC Influenza A&B Ag Rapid COVID Antigen ([facility]) Resp.syn.virus (Rsv) XR Chest Single View Disposition Plan Discharge Prescription List Prescriptions azithromycin 250 mg Tab, 250 mg= 1 tab(s), Oral, Daily Follow-up With When Contact Information Hazel Grady In 7 days 07/21/2023 EST [address] [place] [address]- Business (2) Additional Instructions: Patient Education Viral [...] 94 mg/dL (07/14/23 02:00:00) POC Device SN: [id number] (07/14/23 02:00:00) POC User ID: [id number] (07/14/23 02:00:00) POC Username: POC Username (07/14/23 [...] By: Dom Sarmiento DO 07/14/2023 01:56:22 Normal [facility] Comment on above: Result Comment: [...] Follow these instructions at home: ? Take khge-eud-vttwjxa and prescription medicines only as told by [...] provider. Document Revised: 11/03/2021 Document Reviewed: 11/03/2021 [employer] Patient Education ? 2022 [employer] Infectious Disease Viral Illness, Adult Viruses [...] cause illne (more content not included)... Normal [facility] ED Patient Summaryon 023 ED Patient Summary [address] [address] Patient Discharge Instructions Person Information Name: FRANCES DOE Age: 17 Years Arrival Date: 07/13/2023 23:32:13 Discharge Diagnosis: AOM (acute otitis media); Viral illness Primary Care Physician: Hazel Grady MD Provider Information Primary Provider: Dom Sarmiento DO Advanced Short Order Fry Cook:None The exam and treatment you received in the Emergency Department were for an urgent problem and are not intended as complete care. It is important that you follow up with a doctor, nurse practitioner, or physician?s personal injury legal assistant for ongoing care. If your symptoms [...] Follow-up Instructions: With: Address: When: Hazel Grady [address] [place], [place] [address]y [place] [address] [facility] () In 7 days 07/21/2023 In the event that this physician does not participate in your insurance network, please consult with your insurance company to find a nearby participating provider. Patient Education Materials: Viral Illness, Adult; Otitis Media, Adult A MESSAGE TO ALL PATIENTS REGARDING OPIOIDS PRESCRIPTION OPIOIDS: WHAT YOU NEED TO KNOW Prescription opioids can be used to help relieve rtsiabvd-dp-mgkvmv pain and are often prescribed following a [...] be struggling with addiction, tell your health career resource technician and ask for guidance or call [employer] National Helpline at 3-080-911-LYTO. (more content not included)... Normal [facility] Influenza A&B Agon 3 Influenzae A Ag Negative Normal Negative [facility] Comment on above: Performed By: #### 2 [id number] #### [facility] [address] [place] [address] Influenzae B Ag Negative Normal Negative [facility] Comment on above: Result Comment: Test sensitivity and specificity vary for age group, specimen type, antigen types, and prevalence of disease. Test results must be evaluated in conjunction with other clinical data available to the physician. Individuals who received nasally administered Influenza A vaccine may have positive test results up to 3 days after vaccination. Performed By: #### 2 [id number] #### [facility] [address] [place] [address] Prescriptions/Work Noteson 1 09-14-2022 Prescriptions/Work Notes [id number] 0TIFF Normal [facility] Rapid COVID Antigen ([facility])on 07-14-2023 Rapid COV Int NEG Ctl Pass Normal [facility] Comment on above: Performed By: #### 2 [id number] #### [facility] [address] [place] [address] Rapid COV Int POS Ctl Pass Normal [facility] Comment on above: Performed By: #### 2 [id number] #### [facility] [address] [place] [address] SARS-CoV+SARS-CoV-2 (COVID-19) Ag IA.rapid Ql (Resp) Not detected Normal Not Detected [facility] Comment on above: Result Comment: The [employer] System for Rapid Detection of SARS-CoV-2 is [...] other viruses or pathogens; and, in the [facility], this test is only authorized for the duration of the declaration that circumstances exist justifying the authorization of emergency use of in vitro diagnostics for detection and/or diagnosis of the virus that causes COVID-19 under Section 564(b)(1) of the Act, 21 U.S.C. ? 360bbb-3(b)(1), unless the authorization is terminated or revoked sooner. Performed By: #### 2 [id number] #### [facility] [address] [place] [address] Resp.syn.virus (Rsv)on 07-14 RSV Ag IA.rapid Ql (Nph) Negative Normal Negative [facility] Comment on above: Performed By: #### 2 [id number] #### [facility] [address] [place] [address] XR Chest Single Viewon 07-14 XR Chest [...] in mGy = na DAP = na [facility]son 12-24-2022 Forms [id number] [facility] Vital Signs Date Time Vital Sign Value Performing Clinician Facility 12-06-2024 13:53-0400 Body weight 139.71 kg Lynette Gunter DOCK COORDINATOR Work Phone: [facility] 12-06-2024 13:53-0400 Diastolic blood pressure 70 mm[Hg] Lynette Gunter DOCK COORDINATOR Work Phone: [facility] 12-06-2024 13:53-0400 Systolic blood pressure 114 mm[Hg] Lynette Gunter DOCK COORDINATOR Work Phone: [facility] 11-15-2024 10:36-0400 Body weight 139.16 kg Yogesh Ally DO Work Phone: [facility] 11-15-2024 10:36-0400 Diastolic blood pressure 78 mm[Hg] Yogesh Ally DO Work Phone: [facility] 11-15-2024 10:36-0400 Systolic blood pressure 130 mm[Hg] Yogesh Ally DO Work Phone: [facility] 10-18-2024 14:37-0400 Body weight 136.99 kg Maryanne FOWLER Work Phone: [facility] 10-18-2024 14:37-0400 Diastolic blood pressure 78 mm[Hg] Maryanne FOWLER Work Phone: [facility] 10-18-2024 14:37-0400 Systolic blood pressure 130 mm[Hg] Maryanne Covarrubias PA Work Phone: [facility] 09-21-2024 16:43-0500 Body weight 136.9 kg Maryanne Covarrubias PA Work Phone: [facility] 09-21-2024 16:43-0500 Diastolic blood pressure 76 mm[Hg] Maryanne Covarrubias PA Work Phone: [facility] 09-21-2024 16:43-0500 Systolic blood pressure 118 mm[Hg] Maryanne Covarrubias PA Work Phone: [facility] 08-17-2024 11:52-0500 Body weight 138.8 kg Yogesh Ally DO Work Phone: [facility] 08-17-2024 11:52-0500 Diastolic blood pressure 78 mm[Hg] Yogesh Ally DO Work Phone: [facility] 08-17-2024 11:52-0500 Systolic blood pressure 122 mm[Hg] Yogesh Ally DO Work Phone: [facility] 07-18-2024 11:15-0500 Body weight 139.71 kg Nom Nurse [facility] 07-18-2024 11:15-0500 Diastolic blood pressure 74 mm[Hg] [facility] 07-18-2024 11:15-0500 Systolic blood pressure 118 mm[Hg] [facility] Nurse [facility] 09-17-2023 09:35-0500 Body height 175.26 cm Tiesha Flood Other [facility] Other 09-17-2023 09:35-0500 Body mass index (BMI) [Ratio] 40.16 kg/m2 Tiesha Flood Other [facility] Other 09-17-2023 09:35-0500 Body temperature 99.2 [degF] Tiesha Flood Other [facility] Other 09-17-2023 09:35-0500 Body weight 123.38 kg Tiesha Flood Other [facility] Other 09-17-2023 09:35-0500 Respiratory rate 18 /min Tiesha Flood Other [facility] Other 09-17-2023 09:35-0500 SaO2% (BldA) [Mass fraction] 97 % Tiesha Flood Other [facility] Other 09-02-2023 09:30-0500 Body height 175.26 cm Sheree Cheung Other [facility] Other 09-02-2023 09:30-0500 Body mass index (BMI) [Ratio] 40.21 kg/m2 Sheree Cheung Other [facility] Other 09-02-2023 09:30-0500 Body weight 123.52 kg Sheree Cheung Other [facility] Other 09-02-2023 09:30-0500 Diastolic blood pressure 78 mm[Hg] Sheree Cheung Other [facility] Other 09-02-2023 09:30-0500 Respiratory rate 18 /min Sheree Cheung Other [facility] Other 09-02-2023 09:30-0500 SaO2% (BldA) [Mass fraction] 97 % Sheree Cheung Other [facility] Other 09-02-2023 09:30-0500 Systolic blood pressure 120 mm[Hg] Sheree Cheung Other [facility] Other 12-19-2023 09:30-0500 Body height 175.26 cm Sheree Cheung Other [facility] Other 07-27-2023 09:30-0500 Body mass index (BMI) [Ratio] 40.02 kg/m2 Sheree Jonatan Other [facility] Other 07-27-2023 09:30-0500 Body weight 122.93 kg Sheree Cheung Other [facility] Other 07-27-2023 09:30-0500 Diastolic blood pressure 76 mm[Hg] Sheree Cheung Other [facility] Other 07-27-2023 09:30-0500 Respiratory rate 16 /min Sheree Cheung Other [facility] Other 07-27-2023 09:30-0500 SaO2% (BldA) [Mass fraction] 98 % Sheree Jonatan Other [facility] Other 07-27-2023 09:30-0500 Systolic blood pressure 120 mm[Hg] Sheree Cheung Other [facility] Other 01-21-2022 15:35-0400 Body height 175.26 cm Almaz Deanna Other [facility] Other 01-21-2022 15:35-0400 Body mass index (BMI) [Ratio] 30.86 kg/m2 Almaz Huerta Other [facility] Other 01-21-2022 15:35-0400 Body temperature 97.3 [degF] Almaz Huerta Other [facility] Other 01-21-2022 15:35-0400 Body weight 94.8 kg Almaz Huerta Other [facility] Other 01-21-2022 15:35-0400 Diastolic blood pressure 73 mm[Hg] Almaz Huerta Other [facility] Other 01-21-2022 15:35-0400 Respiratory rate 16 /min Almaz Huerta Other [facility] Other 01-21-2022 15:35-0400 SaO2% (BldA) [Mass fraction] 97 % Almaz Huerta Other [facility] Other 01-21-2022 15:35-0400 Systolic blood pressure 133 mm[Hg] Almaz Huerta Other [facility] Other Encounters Encounter Date Encounter Type Care Provider Facility Start: 12-06-2024 End: 12-06-2024 Bamboo flowsheet Lynette Gunter DOCK COORDINATOR Work Phone: [facility] Start: 12-06-2024 End: 12-06-2024 Bamboo flowsheet Lynette Gunter DOCK COORDINATOR Work Phone: [facility] Start: 12-06-2024 End: 12-06-2024 flow sheet Lynette Gunter DOCK COORDINATOR Work Phone: [facility] Comment on above: size inconsist ent with dates (Primary Dx); 27 weeks gestation of ; Second trimester Start: 12-06-2024 End: 12-06-2024 ambulatory LYNETTE GUNTER Not Available Start: 11-30-2024 End: 11-30-2024 Clinisync Result Encounter Yogesh Stonezio DO Work Phone: [facility] Unsolicited Start: 11-30-2024 End: 11-30-2024 Clinisync Result Encounter Yogesh Kinneyo DO Work Phone: [facility] Unsolicited Start: 11-15-2024 End: 11-15-2024 flow sheet Yogesh Stonezio DO Work Phone: [facility] Comment on above: 24 weeks gestation o f ; Second trimester ; Diabetes mellitus screening Start: 11-15-2024 End: 11-15-2024 ambulatory YOGESH KINNEYO Not Available Start: 10-18-2024 End: 10-18-2024 flow sheet Maryanne FOWLER Work Phone: [facility] Comment on above: Second trimester pre gnancy; 20 weeks gestation of Start: 10-18-2024 End: 10-18-2024 ambulatory MARYANNE COVARRUBIAS Not Available Start: 09-22-2024 End: 09-22-2024 Clinisync Result Encounter Maryanne FOWLER Work Phone: [facility] Unsolicited Start: 09-22-2024 End: 09-22-2024 Clinisync Result Encounter Maryanne FOWLER Work Phone: [facility] Unsolicited Start: 09-21-2024 End: 09-21-2024 flow sheet Maryanne FOWLER Work Phone: [facility] Comment on above: STD exposure; Vaginal discharge; Second trimester ; 16 weeks gestation of ; Screening, , for anatomic survey; Diabetes mellitus screening Start: 09-21-2024 End: 09-21-2024 ambulatory MARYANNE COVARRUBIAS Not Available Start: 09-21-2024 End: 09-21-2024 Bamboo flowsheet Maryanne FOWLER Work Phone: [facility] Start: 09-21-2024 End: 09-23-2024 Bamboo flowsheet Maryanne FOWLER Work Phone: [facility] Start: 09-21-2024 End: 09-23-2024 External Result Encounter Maryanne FOWLER Work Phone: [facility] Unsolicited Start: 08-17-2024 End: 08-17-2024 Bamboo flowsheet Yogesh [...] Start: 08-05-2024 End: 08-05-2024 ambulatory Sheree Cheung Facility:[facility] Start: 07-18-2024 End: 07-18-2024 ambulatory [facility] Ally Nurse [facility] Comment on above: GA: 7w3d Start: 06-26-2024 End: 06-26-2024 Clinisync Result Encounter Maryanne FOWLER Work Phone: [facility] Unsolicited Start: 06-26-2024 End: 06-26-2024 Clinisync Result Encounter Maryanne FOWLER Work Phone: [facility] Unsolicited Start: 09-17-2023 End: 09-17-2023 ambulatory Tiesha Flood Other [facility] Other Start: 09-17-2023 Office outpatient vi sit 15 minutes Tiesha Flood [facility] Start: 09-02-2023 End: 09-02-2023 ambulatory Sheree Cheung Other [facility] Other Start: 09-02-2023 Office outpatient vi sit 25 minutes Sheree Jonatan [facility] Start: 07-27-2023 End: 07-27-2023 ambulatory Sheree Cheung Other [facility] Other Start: 07-27-2023 Encounter for genera l adult medical examination without abnormal findings Sheree Jonatan [facility] Start: 07-27-2023 Initial preventive medicine new pt age 18-39yrs Sheree Jonatan [facility] Start: 07-14-2023 End: 07-14-2023 Emergency department patient visit Dom Sarmiento Facility:[facility] Start: 12-24-2022 ambulatory Dom Sarmiento Facility: [facility] Start: 04-06-2022 End: 04-06-2022 ambulatory [facility] Facility: Start: 01-21-2022 (URG) Urgent Care Visit Almaz romero [facility] Start: 01-21-2022 End: 01-21-2022 ambulatory Almaz Huerta Other [facility] Other Procedures Date Procedure Procedure Detail Performing Clinician Start: 12-06-2024 Urnls dip stick/tabl et rgnt non-auto w/o micrscp Lynette Gunter NP Work Phone: Start: 11-30-2024 ALL CBC WITH AUTO DIFF Yogesh Ally DO Work Phone: Start: 11-15-2024 Urnls dip stick/tabl et rgnt non-auto w/o micrscp Yogesh Ally DO Work Phone: Start: 10-18-2024 Urnls dip stick/tabl et rgnt non-auto w/o micrscp Maryanne FOWLER Work Phone: Start: 09-22-2024 GLUCOSE 1 HOUR Maryanne Covarrubias Work Phone: Start: 09-21-2024 RECURRENT VAGINITIS (HTRX) Maryanne FOWLER Work Phone: Start: 09-21-2024 Urnls dip stick/tabl et rgnt [...] Treatment Date Care Activity Detail Author Start: 12-28-2024 End: 12-28-2024 Patient encounter procedure 12/28/2024 9:50 AM EDT Routine [facility] [address] [place] [address] Yogesh Canales, DO [address] [place] [address] [facility] Start: 12-28-2024 End: 12-28-2024 Professional / ancillary services management 12/28/2024 9:00 AM EDT Ancillary Procedure [facility] [address] [facility] [facility] [place] [address] [facility] Start: 12-06-2024 End: 04-07-2025 US for US OB follow up transabdominal approach Imaging Routine size inconsistent with dates Expected: 12/06/2024, Expires: 04/07/2025 [facility] Work Phone: Comment on above: Expected: 12/06/2024 , Expires: 04/07/2025 Start: 12-06-2024 End: 12-06-2024 Patient encounter procedure [facility] Comment on above: Arrived Start: 11-15-2024 End: 11-15-2025 CBC panel - Blood by Automated count CBC Lab Routine Diabetes mellitus screening Expected: 11/15/2024 (Approximate), Expires: 11/15/2025 [facility] Work Phone: Comment on above: Expected: 11/15/2024 (Approximate), Expires: 11/15/2025 Start: 11-15-2024 End: 11-15-2025 Measurement of glucose 1 hour after glucose challenge for glucose tolerance test Glucose tolerance, 1 hour Lab Routine Diabetes mellitus screening Expected: 11/15/2024 (Approximate), Expires: 11/15/2025 [facility] Comment on above: Expected: 11/15/2024 (Approximate), Expires: 11/15/2025 Start: 11-15-2024 End: 11-15-2024 Patient encounter procedure 11/15/2024 1:10 PM EDT Routine [facility] [address] [place] [id number] Yogesh Canales DO [address] [place] [address] [facility] Start: 10-18-2024 End: 10-18-2024 Patient encounter procedure 10/18/2024 2:30 PM EDT Routine [facility] [address] [place] [id number] Maryanne Covarrubias PA [address] [place] [address] [facility] Start: 10-18-2024 End: 10-18-2024 Professional / ancillary services management 10/18/2024 1:00 PM EDT Ancillary Procedure [facility] [address] [place] [id number] [facility] Start: 09-21-2024 End: 09-21-2024 Patient encounter procedure 09/21/2024 3:20 PM EST Routine [facility] [address] [place] [address] Maryanne Covarrubias PA [address] [place] [address] Arrived [facility] Comment on above: Arrived Start: 09-21-2024 End: 11-19-2024 Alpha fetoprotein, maternal Alpha fetoprotein, maternal Lab Routine Screening, , for anatomic survey Expected: 09/21/2024 (Approximate), Expires: 11/19/2024 [facility] Comment on above: Expected: 09/21/2024 (Approximate), Expires: 11/19/2024 Start: 09-21-2024 End: 09-21-2025 Measurement of glucose 1 hour after glucose challenge for glucose tolerance test Glucose tolerance, 1 hour Lab Routine Diabetes mellitus screening Expected: 09/21/2024 (Approximate), Expires: 09/21/2025 [facility] Comment on above: Expected: 09/21/2024 (Approximate), Expires: 09/21/2025 Start: 09-21-2024 End: 09-21-2025 US for US OB 14+ weeks anatomy scan Imaging Routine Screening, , for anatomic survey Expected: 09/21/2024, Expires: 09/21/2025 [facility] Comment on above: Expected: 09/21/2024 , Expires: 09/21/2025 Start: 09-21-2024 End: 09-21-2024 Patient encounter procedure 09/21/2024 9:30 AM EST Routine [facility] [address] [facility] [facility] [place] [address] Maryanne Covarrubias PA [address] [place] [address] [facility] Start: 08-17-2024 End: 08-17-2024 Patient encounter procedure [facility] Comment on above: Arrived Start: 07-18-2024 End: 07-18-2025 ABO/Rh ABO/Rh Lab Routine Missed menses , unspecified gestational age Expected: 07/18/2024 (Approximate), Expires: 07/18/2025 [facility] Comment on above: Expected: 07/18/2024 (Approximate), Expires: 07/18/2025 Start: 07-18-2024 End: 07-18-2025 Blood type and Indirect antibody screen panel - Blood Type and screen Lab Routine Missed menses , unspecified gestational age Expected: 07/18/2024 (Approximate), Expires: 07/18/2025 [facility] Work Phone: Comment on above: Expected: 07/18/2024 (Approximate), Expires: 07/18/2025 Start: 07-18-2024 End: 07-18-2025 Drugs of abuse panel - Urine by Screen method Rapid drug screen, urine Lab Routine , unspecified gestational age Encounter for supervision of normal first in first trimester Expected: 07/18/2024 (Approximate), Expires: 07/18/2025 [facility] Comment on above: Expected: 07/18/2024 (Approximate), Expires: 07/18/2025 Start: 07-18-2024 End: 07-18-2025 US Pelvis transvaginal US OB transvaginal Imaging Routine Missed menses Expected: 07/18/2024 (Approximate), Expires: 07/18/2025 [facility] Comment on above: Expected: 07/18/2024 (Approximate), Expires: 07/18/2025 Start: 07-18-2024 End: 07-18-2024 ambulatory 07/18/2024 10:30 AM EST Initial [facility] [address] [place] [phone] [facility] Start: 07-18-2024 End: 07-18-2024 Professional / ancillary services management 07/18/2024 10:00 AM EST Ancillary Procedure [facility] [address] [place] [phone] [facility] Bacteria identified in Urine by Culture Urine culture Microbiology Routine Missed menses Ordered: 07/18/2024 [facility] Comment on above: Ordered: 07/18/2024 CBC W Auto Different ial panel - Blood CBC and differential Lab Routine Missed menses , unspecified gestational age Ordered: 07/18/2024 [facility] Comment on above: Ordered: 07/18/2024 CHLAMYDIA TRACHOMATI S (GENITO/STI) CHLAMYDIA TRACHOMATIS (GENITO/STI) Lab Routine STD exposure Vaginal discharge Ordered: 09/21/2024 [facility] Comment on above: Ordered: 09/21/2024 Hemoglobin A1c/Hemoglobin.total in Blood Hemoglobin A1c Lab Routine Missed menses , unspecified gestational age Ordered: 07/18/2024 [facility] Comment on above: Ordered: 07/18/2024 Hepatitis B virus surface Ag [Presence] in Serum or Plasma by Immunoassay Hepatitis B surface antigen Lab Routine Missed menses , unspecified gestational age Ordered: 07/18/2024 [facility] Comment on above: Ordered: 07/18/2024 Hepatitis C virus Ab [Presence] in Serum or Plasma by Immunoassay Hepatitis C antibody Lab Routine Missed menses , unspecified gestational age Ordered: 07/18/2024 [facility] Comment on above: Ordered: 07/18/2024 HIV-1/HIV-2 antigen/antibody combination immunoassay HIV-1 and HIV-2 antibodies Lab Routine Missed menses , unspecified gestational age Ordered: 07/18/2024 [facility] Comment on above: Ordered: 07/18/2024 Neisseria gonorrhoea e DNA [Presence] in Unspecified specimen by ISAURO with probe detection Neisseria gonorrhea DNA probe, direct Lab Routine STD exposure Vaginal discharge Ordered: 09/21/2024 [facility] Comment on above: Ordered: 09/21/2024 Reagin Ab [Presence] in Serum by RPR RPR Lab Routine Missed menses , unspecified gestational age Ordered: 07/18/2024 [facility] Comment on above: Ordered: 07/18/2024 Rubella antibody, IgG Rubella an tibody, IgG Lab Routine Missed menses , unspecified gestational age Ordered: 07/18/2024 [facility] Comment on above: Ordered: 07/18/2024 SURESWAB(R) ADVANCED VAGINITIS PLUS, TMA SURESWAB(R) ADVANCED VAGINITIS PLUS, TMA Pathology and Cytology Routine STD exposure Vaginal discharge Ordered: 09/21/2024 [facility] Work Phone: Comment on above: Ordered: 09/21/2024 Immunizations Immunization Date Immunization Notes Care Provider Chase sequeira 03-17-2021 Human Papillomavirus 9-valent vaccine Almaz Deanna Other [facility] Other 02-10-2021 Do not use COVID-19 Pfizer 2 dose Almaz Deanna Other [facility] Other 08-04-2016 Human Papillomavirus 9-valent vaccine Almaz Deanna Other [facility] Other 05-22-2016 Human Papillomavirus 9-valent vaccine Almaz Deanna Other [facility] Other 07-29-2015 hepatitis A vaccine, pediatric/adolescent dosage, 2 dose schedule Almaz Deanna Other [facility] Other 04-02-2007 hepatitis A vaccine, pediatric/adolescent dosage, 2 dose schedule Almaz Deanna Other [facility] Other 04-14-2005 diphtheria, tetanus toxoids and acellular pertussis vaccine, 5 pertussis antigens Almaz Deanna Other [facility] Other 10-09-2004 measles, mumps and rubella virus vaccine Almaz Deanna Other [facility] Other 04-21-2004 DTaP-hepatitis B and poliovirus vaccine Almaz Deanna Other [facility] Other 04-21-2004 haemophilus influenz ae type b vaccine, PRP-T conjugate Almaz Deanna Other [facility] Other 02-19-2004 DTaP-hepatitis B and poliovirus vaccine Almaz Deanna Other [facility] Other 02-19-2004 haemophilus influenz ae type b vaccine, PRP-T conjugate Almaz Huerta Other [facility] Other 2003 DTaP-hepatitis B and poliovirus vaccine Almaz Huerta Other [facility] Other 2003 haemophilus influenz ae type b vaccine, PRP-T conjugate Almaz Huerta Other [facility] Other 2003 hepatitis B vaccine, pediatric or pediatric/adolescent dosage Almaz Huerta Other [facility] Other Payers Date Payer Category Payer Self-pay 2021 Private Health Insurance 2003 Unknown [id number] 2.16.8 [id number] 2003 Unknown [id number] 2.16.84 [id number] 2003 Unknown [id number] 2.16.84 [id number] 2003 Unknown [id number] 2.16.84 [id number] 2003 Unknown [id number] 2.16.84 [id number] 2003 Unknown [id number] 2.16.84 [id number] 2003 Unknown [id number] 2.16.84 [id number] 2003 Unknown [id number] 2.16.84 [id number] 2003 Unknown [id number] 2.16.84 [id number] 1959 Unknown [id number] 1959 Unknown [id number] 1959 Unknown [id number] 2.16.84 [id number] Unknown [id number] 2.16.8 [id number] Social History Date Type Detail Facility Unknown if ever smoked [facility] [employer] Other Sex Assigned At [facility] Other Tobacco smoking status KYIS Tobacco smoking consumption unknown [facility] Start: 2003 Sex assigned at Not on file [facility] Start: 06-10-2024 [facility] Clinical Notes 01-21-2022 to 12-06-2024 Lynette Gunter NP - 12/06/2024 1:20 PM Juan Carlos Vasquez LPN - 11/15/2024 10:50 AM JANETH Blanca - 10/18/2024 2:30 PM JANETH Blanca - 09/21/2024 3:20 PM EST Note Date & Type Note Facility 12-06-2024 History of Presen t illness Narrative Reason for Appointment: Patient ID: Frnaces Doe is a 19 y.o. female who presents for Routine Visit Patient presents today for Return OB appointment. MEDICATIONS Current Outpatient Medications Medication Instructions magnesium oxide (Mag-Ox) 400 MG tablet 1 tablet, Daily ondansetron (ZOFRAN) 4 mg, Every 6 hours PRN promethazine (PHENERGAN) 12.5 mg, Oral, Every 6 [...] History HISTORY PAST MEDICAL HISTORY SOCIAL HISTORY History reviewed. No pertinent past medical history. Social History Tobacco Use Smoking status: Not on file Smokeless tobacco: Not on file Substance Use Topics Alcohol use: Not on file Drug use: Not on file FAMILY HISTORY No family history on file. SURGICAL HISTORY History reviewed. No pertinent surgical history. REVIEW OF SYSTEMS Review of Systems: Review [...] nursing note reviewed. Exam conducted with a pomologist present. Vitals: There is no height or weight on file to calculate BMI. BP: 114/70 Patient's last menstrual period was 05/09/2024. ASSESSMENT & PLAN ICD-10-CM 1. 27 weeks gestation of Z3A.27 POCT urinalysis dipstick manually resulted 2. Second trimester Z34.92 POCT urinalysis dipstick manually resulted Return OB: Patient presents today for a routine obstetrics appointment. Patient is currently 27w4d . Patient states she is doing well but has complaints of being tired due to current . Patient has verbalizes frequent movement. labor precautions was discussed/given and patient was instructed to perform kick counts three times a day. Orders Placed This Encounter Procedures POCT urinalysis dipstick manually resulted Follow Up: Patient is to return to office in 3 week for routine OB appointment. Documented by Lynette Gunter NP on behalf of: Lynette Gunter NP documented in this encounter [facility] 11-15-2024 History of Presen t illness Narrative Reason for Appointment: Patient ID: Frances Doe is a 19 y.o. female who presents for Routine Visit Patient presents today for Return OB appointment. MEDICATIONS Current Outpatient Medications Medication Instructions magnesium oxide (Mag-Ox) 400 MG tablet 1 tablet, Daily promethazine (PHENERGAN) 12.5 mg, Oral, Every 6 [...] History HISTORY PAST MEDICAL HISTORY SOCIAL HISTORY History reviewed. No pertinent past medical history. Social History Tobacco Use Smoking status: Not on file Smokeless tobacco: Not on file Substance Use Topics Alcohol use: Not on file Drug use: Not on file FAMILY HISTORY No family history on file. SURGICAL HISTORY History reviewed. No pertinent surgical history. REVIEW OF SYSTEMS Review of Systems: Review [...] nursing note reviewed. Exam conducted with a pomologist present. Vitals: There is no height or weight on file to calculate BMI. BP: 130/78 Patient's last menstrual period was 05/09/2024. ASSESSMENT & PLAN ICD-10-CM 1. 24 weeks gestation of Z3A.24 POCT urinalysis dipstick manually resulted 2. Second trimester Z34.92 POCT urinalysis dipstick manually resulted 3. Diabetes mellitus screening Z13.1 CBC Glucose tolerance, 1 hour CBC Glucose tolerance, 1 hour Return OB: Patient presents today for a routine obstetrics appointment. Patient is currently 24w4d . Patient states she is doing well but has complaints of being tired due to current . Patient has verbalizes frequent movement. labor precautions was discussed/given. Orders Placed This Encounter Procedures CBC Glucose tolerance, 1 hour POCT urinalysis dipstick manually resulted Follow Up: Patient is to return to office in 3 week for routine OB appointment. Documented by Aparna Vasquez LPN on behalf of: Yogesh Canales DO documented in this encounter [facility] 10-18-2024 History of Presen t illness Narrative Reason for Appointment: Patient ID: Frances Doe is a 19 y.o. female who presents for Routine Visit Patient presents today for Return OB appointment. MEDICATIONS Current Outpatient Medications Medication Instructions magnesium oxide (Mag-Ox) 400 MG tablet 1 tablet, Daily promethazine (PHENERGAN) 12.5 mg, Oral, Every 6 [...] weight on file to calculate BMI. BP: 130/78 Patient's last menstrual period was 05/09/2024. ASSESSMENT & PLAN ICD-10-CM 1. Second trimester Z34.92 POCT urinalysis dipstick manually resulted 2. 20 weeks gestation of Z3A.20 Return OB: Patient presents today for a routine obstetrics appointment. Patient is currently 20w4d . Patient states she is doing well but has complaints of being tired due to current . Patient has verbalizes frequent movement. labor precautions was discussed/given and patient was instructed to perform kick counts three times a day. Pt states she is still having headaches/migraines every other day and at times can not get out of bed. Pt is currently on Mag-Ox and promethazine. Pt stated she has even been drinking more electrolytes as directed and not much of a change . Orders Placed This Encounter Procedures POCT urinalysis dipstick manually resulted Follow Up: Patient is to return to office in 2 week for routine OB appointment. Documented by Jazmyne Oliveira MA on behalf of: JANETH Ji documented in this encounter [facility] 09-21-2024 History of Presen t illness Narrative [...] obtained without difficulty [facility]. Orders Placed This [...] of: JANETH Ji documented in this encounter [facility] 08-17-2024 History of Presen t illness [...] nursing note reviewed. Exam conducted with a pomologist present. Vitals: There is no height or [...] or undercooked meat, and stay away from [facility]. Patient has been consulted regarding any [...] Yogesh Canales DO documented in this encounter [facility] 07-18-2024 History of Presen t illness [...] or undercooked meat, and stay away from [facility]. Patient has also been advised to [...] Jazmyne Oliveira MA documented in this encounter [facility] 09-17-2023 Evaluation note Encounter Date Diagnosis [...] understanding and is agreeable to treatment plan. [facility] Other 01-25-2024 Evaluation note* Encounter Date Diagnosis [...] and no personal patient information was compromised. [facility] Other 12-19-2023 Evaluation note* Encounter Date Diagnosis [...] (ICD-10 - F32.1) See above treatment plan. [facility] Other 06-15-2022 Evaluation note* Encounter Date Diagnosis Assessment Notes Treatment Notes Treatment Clinical Notes Jan, Pre-employment examination (ICD-10 - Z02.1) [facility] Other Evaluation note* Diagnosis Missed menses , [...] diabetes mellitus [facility] Diagnosis Second trimester state, incidental 20 weeks gestation of [facility] Diagnosis 24 weeks gestation of Second trimester state, incidental Diabetes mellitus screening Screening for diabetes mellitus [facility] Diagnosis size inconsistent with dates- Primary 27 weeks gestation of Second trimester state, incidental [facility] N[facility]ative - Reported* Type Description Date Medical History vertigo [facility] Other Reason for referral (narrative)* Reason Refer to [facility] or counseling for anxiety and depression Diagnosis 1 MATTHIAS (generalized anx iety disorder) (F41.1) Referral Organization [facility] Referring Provider First Name Sheree Referring Provider Last Name Jonatan Referring Provider Specialty Nurse Bree grullon Referred Provider Specialty Psychiatry Referral Priority Routine [facility] Other Summary Purpose Family History No Family [...] content) DATE CREATED AUTHOR 04/10/2022 [facility] DATE CREATED AUTHOR AUTHOR'S ORGANIZ ATION 08/13/2023 [facility] DATE CREATED AUTHOR AUTHOR'S ORGANIZ ATION 08/09/2024 [facility] DATE CREATED AUTHOR AUTHOR'S ORGANIZ ATION 12/11/2024 [facility] EPIC Care Teams (unrecognized sec tion and content) Corporate Risk Analyst Relationship Specialty Start Date End Date Hazel Grady MD [address] [place] [address] PCP - General Family Medicine 07/18/24 Corporate Risk Analyst Relationship Specialty Start Date End Date Hazel Grady MD [address] [place] [address] PCP - General Family Medicine 07/18/24 Corporate Risk Analyst Relationship Specialty Start Date End Date Hazel Grady MD [address] [place] [address] PCP - General Family Medicine 07/18/24 Corporate Risk Analyst Relationship Specialty Start Date End Date Hazel Grady MD [address] [place] [address] PCP - General Family Medicine 07/18/24 Corporate Risk Analyst Relationship Specialty Start Date End Date Hazel Grady MD [address] [place] [address] PCP - General Family Medicine 07/18/24 Corporate Risk Analyst Relationship Specialty Start Date End Date Hazel Grady MD [address] [place] [address] PCP - General Family Medicine 07/18/24 Corporate Risk Analyst Relationship Specialty Start Date End Date Hazel Grady MD [address] [place] [address] PCP - General Family Medicine 07/18/24 Corporate Risk Analyst Relationship Specialty Start Date End Date Hazel Grady MD [address] [place] [address] PCP - General Family Medicine 07/18/24 FOR [...] BE BASED ON THE PRIMARY CLINICAL RECORDS. [email or web address] provides no warranty or guarantee of the accuracy or completeness of information in this document.
[2024-12-15 23:23] VITALS: BP 142/90; PULSE 96
[2024-12-15 23:31] LABS: Bilirubin Urine NEGATIVE (NEGATIVE); Blood Urine NEGATIVE (NEGATIVE); Clarity Urine CLEAR (CLEAR); Color Urine LT. YELLOW (YELLOW); Glucose Urine UA NEGATIVE (NEGATIVE); Ketones Urine NEGATIVE (NEGATIVE); Leukocyte Esterase Urine LARGE (NEGATIVE); Nitrite Urine NEGATIVE (NEGATIVE); Protein Urine NEGATIVE (NEG/TRACE); Specific Gravity Urine <=1.005 (1.005-1.025); Urobilinogen Urine 0.2 EU/dL (0.2-1.0)
[2024-12-15 23:32] LABS: Urine Microscopic Indicated YES
[2024-12-15 23:34] VITALS: BP 143/87; PULSE 100
[2024-12-15 23:36] LABS: RBC Urine 0-2 #/HPF (0-2); WBC Urine 20-50 #/HPF (NONE SEEN)
[2024-12-15 23:37] LABS: Bacteria Urine MODERATE #/HPF (NONE SEEN); Mucus Urine NONE SEEN (NONE SEEN); Squamous Epithelial Cell Urine MODERATE #/LPF (NONE/RARE)
[2024-12-15 23:39] LABS: Cast Seen? NONE SEEN #/LPF (NONE SEEN); Crystals Seen? None Seen #/HPF (None Seen); Urine Culture Indicated YES-LC
[2024-12-15 23:44] VITALS: BP 146/88
[2024-12-15 23:55] VITALS: BP 157/68; PULSE 97
[2024-12-16] VITALS (15 sets, daily range): BP systolic 96–160; BP diastolic 53–78; PULSE 80–116; TEMP 36.8
[2024-12-16] MEDS: 0.9 % SODIUM CHLORIDE 1,000 ML 1000 ML IV (00:45)
[2024-12-16 01:05] LABS: Basophils Percent Auto 0.2 % (0.2-2.0); Eosinophils Absolute Auto 0.1 10^3/uL (0.0-0.7); Eosinophils Percent Auto 0.4 % (0.9-7.0); Hemoglobin 11.5 g/dL (12.0-16.0); Immature Granulocytes Abs Auto 0.06 10^3/uL (0.00-0.03); Immature Granulocytes Pct Auto 0.5 % (0.0-0.5); Lymphocytes Absolute Auto 2.5 10^3/uL (1.2-3.8); Lymphocytes Percent Auto 19.6 % (20.5-60.0); Mean Corpuscular HGB Conc 33.8 g/dL (29.9-35.2); Mean Corpuscular Volume 82.7 fL (81.0-99.0); Mean Platelet Volume 9.5 fL (9.5-13.5); Monocytes Absolute Auto 0.8 10^3/uL (0.3-0.8); Monocytes Percent Auto 6.5 % (1.7-12.0); Neutrophils Absolute Auto 9.3 10^3/uL (1.4-6.5); Neutrophils Percent Auto 72.8 % (43.0-75.0); Platelet Count 306 10^3/uL (150-450); Red Blood Count 4.11 10^6/uL (4.20-5.40); Red Cell Distribution Width 12.7 % (11.0-15.0); White Blood Count 12.7 10^3/uL (4.0-11.0)
[2024-12-16 01:19] LABS: Alanine Aminotransferase 12 U/L (14-59); Albumin Globulin Ratio 0.6; Albumin Level 2.4 g/dL (3.4-5.0); Alkaline Phosphatase 123 U/L (46-116); Amylase 42 U/L (25-115); Anion Gap 12.8; Aspartate Amino Transferase 10 U/L (15-37); BUN Creatinine Ratio 7.3; Bilirubin Total 0.3 mg/dL (0.2-1.0); Carbon Dioxide 22.7 mmol/L (21.0-32.0); Chloride 103 mmol/L (98-107); Estimated GFR (African America >60 (>=60 mL/min/1.73m^2); Estimated GFR (Non-African Ame >60 (>=60 mL/min/1.73m^2); Globulin 4.3 g/dL; Glucose 95 mg/dL (74-106); Potassium 3.5 mmol/L (3.5-5.1); Sodium 135 mmol/L (136-145); Total Protein 6.7 g/dL (6.4-8.2)
[2024-12-16 01:37] LABS: Uric Acid 3.2 mg/dL (2.6-6.0)
[2024-12-16] MEDS: 0.9 % SODIUM CHLORIDE 1,000 ML 125 ML IV ×3 (01:45→18:25)
[2024-12-16] MEDS: ACETAMINOPHEN 500 MG TABLET 1000 MG PO (04:30)
--- NOTE | 2024-12-16 09:06 | PM.OBHP ---
[facility] Social History Smoking status: Never smoker Little interest or pleasure in doing things: not at all Feeling down, depressed, or hopeless: not at all Meds Home Medications and Allergies Home Medications ?Medication ?Instructions ?Recorded ?Confirmed ?Type ondansetron 4 mg disintegrating 4 mg PO Q8H PRN nausea and 06/24/24 09/03/24 Rx tablet vomiting 5 days #20 tabs sertraline 50 mg tablet 50 mg PO QPM 06/24/24 09/03/24 History magnesium oxide 400 mg (241.3 mg mg 09/03/24 History magnesium) tablet promethazine 12.5 mg tablet mg 09/03/24 History Allergies Allergy/AdvReac Type Severity Reaction Status Date / Time amoxicillin Allergy Severe Rash Verified 09/03/24 13:51 Exam Constitutional Vital Signs, click to edit/add: Last Vital Signs Temp 98.2 F 12/16/24 07:55 Pulse 94 H 12/16/24 07:46 Resp 18 12/16/24 07:55 BP 131/68 12/16/24 07:46 Results Labs Labs: Short CBC 12/16/24 Range/Units 00:30 WBC 12.7 H (4.0-11.0) 10^3/uL Hgb 11.5 L (12.0-16.0) g/dL Hct 34.0 L (36.0-48.0) % Plt Count 306 (150-450) 10^3/uL BMP 12/16/24 00:30 Sodium 135 L Potassium 3.5 Chloride 103 Carbon Dioxide 22.7 BUN 4.0 L Creatinine 0.55 Glucose 95 Calcium 9.0 Liver Function 12/16/24 Range/Units 00:30 Total Bilirubin 0.3 (0.2-1.0) mg/dL AST 10 L (15-37) U/L ALT 12 L (14-59) U/L Alkaline Phosphatase 123 H (46-116) U/L Albumin 2.4 L (3.4-5.0) g/dL Urine 12/15/24 Range/Units 23:00 Urine Color Lt. yellow (YELLOW) Urine Clarity Clear (CLEAR) Urine pH 7.0 (5.0-9.0) Ur Specific [place] <=1.005 A (1.005-1.025) Urine Protein Negative (NEG/TRACE) mg/dL Urine Glucose (UA) Negative (NEGATIVE) mg/dL
[2024-12-16] MEDS: HYDROCODONE/ACET 5-325 MG TABLET 2 TAB PO (09:46)
[2024-12-16] MEDS: PANTOPRAZOLE SODIUM 40 MG VIAL IV (09:48)
[2024-12-16] MEDS: CEFAZOLIN SODIUM/DEXTROSE,ISO 2 GM/50 ML PIGGYBACK IV (09:48)
--- NOTE | 2024-12-16 10:42 | PC.NURSE ---
dr brooke in and orders reviewed with pt, heat to epigastric area with no improvement-pt states heat actually made this area worse, to an 8 from a 7 and took it off, reflexes unable to illicit, denies headache or spotty vision, medicated with protonix and norco times two and antbiotic, ultrasound at bedside to do gallbladder us
--- NOTE | 2024-12-16 11:09 | PC.NURSE ---
states feels no better to epigastrc area after norco or protonix, states having the us pushing on the area to upper rt quad caused increased pain
[2024-12-16 12:46] LABS: Basophils Percent Auto 0.1 % (0.2-2.0); Eosinophils Percent Auto 0.2 % (0.9-7.0); Hematocrit 31.6 % (36.0-48.0); Hemoglobin 10.4 g/dL (12.0-16.0); Immature Granulocytes Abs Auto 0.03 10^3/uL (0.00-0.03); Immature Granulocytes Pct Auto 0.4 % (0.0-0.5); Lymphocytes Absolute Auto 1.7 10^3/uL (1.2-3.8); Lymphocytes Percent Auto 20.9 % (20.5-60.0); Mean Corpuscular HGB Conc 32.9 g/dL (29.9-35.2); Mean Corpuscular Hemoglobin 27.8 pg (26.7-34.0); Mean Corpuscular Volume 84.5 fL (81.0-99.0); Mean Platelet Volume 9.1 fL (9.5-13.5); Monocytes Absolute Auto 0.7 10^3/uL (0.3-0.8); Monocytes Percent Auto 8.2 % (1.7-12.0); Neutrophils Absolute Auto 5.8 10^3/uL (1.4-6.5); Neutrophils Percent Auto 70.2 % (43.0-75.0); Platelet Count 274 10^3/uL (150-450); Red Blood Count 3.74 10^6/uL (4.20-5.40); Red Cell Distribution Width 12.9 % (11.0-15.0); White Blood Count 8.2 10^3/uL (4.0-11.0)
[2024-12-16 13:14] LABS: Alanine Aminotransferase 16 U/L (14-59); Albumin Globulin Ratio 0.6; Albumin Level 2.3 g/dL (3.4-5.0); Alkaline Phosphatase 113 U/L (46-116); Amylase 36 U/L (25-115); Anion Gap 10.1; Aspartate Amino Transferase 10 U/L (15-37); Bilirubin Total 0.2 mg/dL (0.2-1.0); Carbon Dioxide 24.6 mmol/L (21.0-32.0); Chloride 104 mmol/L (98-107); Estimated GFR (African America >60 (>=60 mL/min/1.73m^2); Estimated GFR (Non-African Ame >60 (>=60 mL/min/1.73m^2); Globulin 3.9 g/dL; Glucose 86 mg/dL (74-106); Potassium 3.7 mmol/L (3.5-5.1); Sodium 135 mmol/L (136-145); Total Protein 6.2 g/dL (6.4-8.2)
[2024-12-16 13:21] LABS: Calcium 8.3 mg/dL (8.5-10.1)
[2024-12-16 13:41] LABS: Creatinine Urine Random 124.49 mg/dL (20.00-300.00); Protein Creatinine Ratio Urine 0.14; Total Protein Urine Random 17.9 mg/dL (<=11.9)
--- NOTE | 2024-12-16 14:39 | PC.NURSE ---
continues to c/o pressure like pain to RUQ which increases with position change or touch, lower back pain intermittently. denies needs, reviewed labs with pt and plan of care that Dr Canales will be calling in shortly for update.
[2024-12-16] MEDS: CEFAZOLIN SODIUM/DEXTROSE,ISO 1 GM/50 ML PREMIX IV (17:14)
== END 2024-12-16 23:00 | disposition home or self-care (01) ==
PROVIDERS: Admitting Provider Obstetrics & Gynecology; PCP Family Medicine; Visit Provider Obstetrics & Gynecology
DX: O36.8130 Decreased fetal movements, third trimester, not applicable or unspecified (principal); Z3A.28 28 weeks gestation of pregnancy; O26.893 Other specified pregnancy related conditions, third trimester; R10.11 Right upper quadrant pain; M54.9 Dorsalgia, unspecified
CPT/HCPCS: 36415; 74178; 76705; 80053; 81001; 82150; 82570; 83690; 84156; 84550; 85025; 87086; 96365; 96375; G0378; G0379; J0690; Q9967

== ENCOUNTER 2024-12-18 10:32 | Outpatient (OUT) | payer OTHER, SELFPAY ==
[2024-12-18 12:25] VITALS: BP 130/66; PULSE 106
[2024-12-18 12:40] VITALS: BP 139/74; PULSE 105
== END 2024-12-18 13:10 | disposition home or self-care (01) ==
LOC: FBCO 10:33 → FBC 12:16
PROVIDERS: PCP Family Medicine; Visit Provider Obstetrics & Gynecology
DX: O36.8130 Decreased fetal movements, third trimester, not applicable or unspecified (principal)
CPT/HCPCS: 59025

== ENCOUNTER 2025-01-03 10:03 | Outpatient (OUT) | payer OTHER, SELFPAY ==
--- NOTE | 2025-01-03 | US_ITS ---
[place] [id number] Patient Name: JIMBO DOE MRN: [id number] date: 2005 Sex: F Assigned Patient Location: [facility] Current Patient Location: [facility] Accession/Order Number: [id number] Exam Date: 01/03/2025 10:37 Report Date: 01/03/2025 10:43 At the request of: YOGESH CALI DO Procedure: US OB BPP w non-stress BIOPHYSICAL PROFILE: CLINICAL INFORMATION: Oligohydramnios O41.03x1 COMPARISON: 07/18/2024 There is a single live intrauterine gestation in cephalic presentation. The reported gestational age is 31 weeks 4 days. The heart rate [id number] beats per minute. FINDINGS: TONE: 1 or more episodes of activity extension and flexion of extremity or opening and closing of the hand [Y] 2/2 GROSS BODY MOVEMENTS: 3 or more discrete body or limb movements [Y] 2/2 BREATHING MOVEMENTS: 1 or more episodes of breathing lasting at least 30 seconds [Y] 2/2 JEROD: A single deepest vertical pocket of amniotic fluid greater than 2 cm [Y] 2/2 JEROD: 6.6 cm. The 2.5th percentile is 7.9 cm. Total score: 8/8 US/ OB BPP w non-stress IMPRESSION: NORMAL BIOPHYSICAL PROFILE. OLIGOHYDRAMNIOS . Impression dictated by: Aparna Nascimento M.D. 01/03/2025 10:43 AM Dictation Location: [place] [address] Electronically authenticated by: [id number] Date: 01/03/2025 10:43
--- OUTSIDE RECORDS SUMMARY | 2025-01-03 10:18 | XMS_ITS | CCD ---
Author Organization [facility] Care Team Providers Care Medical Delivery Technician Name Role Phone Almaz Huerta Unavailable HAZEL [...] [amoxicillin] Drug Allergy 4 swelling, Rash [facility] Repository (1 source) Amoxicillin Drug Allergy 6 [facility] Repository (1 source) Amoxicillin Drug Allergy [address] [facility] Repository Medications Current Medications Medication [...] Active magnesium oxide 400 mg oral tablet (12 sources) Start: 08-17-2024 End: 09-16-2024 take 1 tablet by mouth once daily magnesium oxide (Mag-Ox) 400 MG tablet Take 1 tablet by mouth Daily 09/16/2024 Active promethazine hydrochloride 12.5 mg oral tablet (17 sources) Phenothiazine Start: 08-17-2024 take 1 tablet [...] 08/17/2024 Active sertraline 50 mg oral tablet (20 sources) Serotonin Reuptake Inhibitor Start: 04-05-2024 take [...] (Original) ondansetron 4 mg disintegrating oral tablet (9 sources) Serotonin-3 Receptor Antagonist Start: 07-18-2024 End: [...] Test Name Value Interpretation Reference Range Facility ALL CBC WITH AUTO DIFFon BASOPHILS ABSOLUTE AUTO 0 [facility] Healthcare Basophils/100 WBC (Bld) 0.2 % 0.2 - 2.0 % [facility] Eosinophils/100 WBC (Bld) 0.4 % Low 0.9 - 7.0 % [facility] Erythrocyte distribution width (RBC) [Ratio] 12.7 % 11.0 - 15.0 % [facility] Hematocrit (Bld) [Volume fraction] 34 % Low 36.0 - 48.0 % [facility] e Hemoglobin (Bld) [Mass/Vol] 11.5 g/dL Low 12.0 - 16.0 g/dL [facility] IMMATURE GRANULOCYTES ABS AUTO 0.06 High [facility] Immature granulocytes/100 WBC (Bld) 0.5 % 0.0 - 0.5 % [facility] Interpretation and review of laboratory results Abnormal [facility] LYMPHOCYTES ABSOLUTE AUTO 2.5 [facility] Lymphocytes/100 WBC (Bld) 19.6 % Low 20.5 - 60.0 % [facility] MCH (RBC) [Entitic mass] 28 pg 26.7 - 34.0 pg [facility] MCHC (RBC) [Mass/Vol] 33.8 g/dL 29.9 - 35.2 g/dL [facility] MCV (RBC) [Entitic vol] 82.7 fL 81.0 - 99.0 fL [facility] MONOCYTES ABSOLUTE AUTO 0.8 [facility] Monocytes/100 WBC (Bld) 6.5 % 1.7 - 12.0 % [facility] NEUTROPHILS ABSOLUTE AUTO 9.3 High [facility] Neutrophils/100 WBC (Bld) 72.8 % 43.0 - 75.0 % [facility] Platelet mean volume (Bld) [Entitic vol] 9.5 fL 9.5 - 13.5 fL [facility] Healthcare TBH EO # 0.1 [facility] Health[facility] e TBH PLT 306 [facility] TB RBC 4.11 Low [facility] e TB WBC 12.7 High [facility] TBH UA (CLEAN/CATCH) INFORMATION SYSTEMS COORDINATOR/TARSHA RO IF IND.on 12-15-2024 BILIRUBIN URINE Negative NEGATIVE [facility]care BLOOD URINE Negative NEGATIVE [facility] Healthca re Clarity (U) CLEAR CLEAR [facility] Color (U) LT. YELLOW YELLOW [facility] Healthcar e GLUCOSE URINE UA Negative NEGATIVE mg/dL [facility] Interpretation and review of laboratory results Abnormal [facility] Healthca re Ketones Ql (U) Negative NEGATIVE mg/dL [facility] Leukocyte esterase Test strip Ql (U) LARGE Abnormal NEGATIVE [facility] Healthcar e NITRITE URINE Negative NEGATIVE [facility] pH (U) 7.0 [pH] 5.0 - 9.0 [facility] PROTEIN URINE Negative NEG/TRACE mg/dL [facility] SPECIFIC GRAVITY URINE <=1.005 Abnormal 1.005 - 1.025 [facility] URINE MICROSCOPIC INDICATED YES [facility] UROBILINOGEN URINE 0.2 EU/dL 0.2 - 1.0 EU/dL [facility] Healthcar e Urinalysis macro (dipstick) panel (U)on 12-06-2024 Bilirubin, UA Negative Negative - 4(70) +++ mg/dL [facility] Blood, UA Negative Negative - 50 Sam/mcL [facility] Clarity, UA Clear [facility] Healthca re Color, UA Yellow [facility] e Glucose, UA Negative Negative - 1999(110) ++++ mg/dL [facility] Interpretation and review of laboratory results Abnormal [facility] Healthor re Ketones, UA Positive Negative - 160(16) ++++ mg/dL [facility] Comment on above: trace Leukocytes, UA Trace Negative - 500+++ Supa/mcL [facility] Nitrite, UA Negative Negative - Positive [facility] pH, UA 5.5 5 - 9 [facility] Healthcar e Protein, UA Negative Negative - 1999(20) ++++ mg/dL [facility] Spec Grav, UA 1.03 1 - 1.03 [facility] Urobilinogen, UA 0.2 0.2 - 12 mg/dL [facility] Healthcar e ALL CBC WITH AUTO DIFFon BASOPHILS ABSOLUTE AUTO 0 [facility] Basophils/100 WBC (Bld) 0.2 % 0.2 - 2.0 % [facility] Eosinophils/100 WBC (Bld) 0.3 % Low 0.9 - 7.0 % [facility] Erythrocyte distribution width (RBC) [Ratio] 12.8 % 11.0 - 15.0 % [facility] Hematocrit (Bld) [Volume fraction] 34 % Low 36.0 - 48.0 % [facility] Health[facility] e Hemoglobin (Bld) [Mass/Vol] 11.2 g/dL Low 12.0 - 16.0 g/dL [facility] IMMATURE GRANULOCYTES ABS AUTO 0.05 High [facility] Immature granulocytes/100 WBC (Bld) 0.4 % 0.0 - 0.5 % [facility] Interpretation and review of laboratory results Abnormal [facility] LYMPHOCYTES ABSOLUTE AUTO 2.1 [facility] Lymphocytes/100 WBC (Bld) 17.3 % Low 20.5 - 60.0 % [facility] MCH (RBC) [Entitic mass] 27.7 pg 26.7 - 34.0 pg [facility] MCHC (RBC) [Mass/Vol] 32.9 g/dL 29.9 - 35.2 g/dL [facility] MCV (RBC) [Entitic vol] 84 fL 81.0 - 99.0 fL [facility] MONOCYTES ABSOLUTE AUTO 0.8 [facility] Monocytes/100 WBC (Bld) 6.6 % 1.7 - 12.0 % [facility] NEUTROPHILS ABSOLUTE AUTO 8.9 High [facility] Neutrophils/100 WBC (Bld) 75.2 % High 43.0 - 75.0 % [facility] Platelet mean volume (Bld) [Entitic vol] 9.1 fL Low 9.5 - 13.5 fL [facility] TBH EO # 0 [facility] Healthcar e TBH PLT 281 [facility] Health[facility] e TBH RBC 4.05 Low [facility] Health[facility] e TBH WBC 11.8 High [facility] e [facility] Healthcar e US OB LIMITED 1+ FETUSESon [...] II, MD, PHD at 17-Nov-2024 06:24:10 AM [facility] Normal Not Available Comment on above: Order Comment: US OB INCOMPLETE ANATOMY Estimated Date of Delivery: 03/03/25 Gestational Age as of 11/01/2024: 22w4d Urinalysis macro (dipstick) panel (U)on 11-15-2024 Bilirubin, UA Negative Negative - 4(70) +++ mg/dL [facility] Blood, UA Negative Negative - 50 Sam/mcL [facility] Clarity, UA Clear [facility] Color, UA Yellow [facility] Healthcar e Glucose, UA Negative Negative - 1999(110) ++++ mg/dL [facility] Interpretation and review of laboratory results Abnormal [facility] Healthca re Ketones, UA Negative Negative - 160(16) ++++ mg/dL [facility] Leukocytes, UA Trace Negative - 500+++ Supa/mcL [facility] Nitrite, UA Negative Negative - Positive [facility] pH, UA 6.5 5 - 9 [facility] e Protein, UA Trace Negative - 1999(20) ++++ mg/dL [facility] Spec Grav, UA 1.02 1 - 1.03 [facility] Urobilinogen, UA 0.2 0.2 - 12 mg/dL [facility] Urinalysis macro (dipstick) panel (U)on 10-18-2024 Bilirubin, UA Negative Negative - 4(70) +++ mg/dL [facility] Blood, UA Negative Negative - 50 Sam/mcL [facility] Clarity, UA Clear [facility] Color, UA Yellow [facility] Healthcar e Glucose, UA Negative Negative - 1999(110) ++++ mg/dL [facility] Interpretation and review of laboratory results Normal [facility] Ketones, UA Negative Negative - 160(16) ++++ mg/dL [facility] Leukocytes, UA Negative Negative - 500+++ Supa/mcL [facility] Nitrite, UA Negative Negative - Positive [facility] pH, UA 6 5 - 9 [facility] Healthcar e Protein, UA Negative Negative - 1999(20) ++++ mg/dL [facility] Spec Grav, UA 1.03 1 - 1.03 [facility] Urobilinogen, UA 0.2 0.2 - 12 mg/dL [facility] e RECURRENT VAGINITIS (HTRX)on 09-23-2024 ATOPOBIUM VAGINAE 21.837 Abnormal [facility] ATOPOBIUM VAGINAE Detected Abnormal [facility] BVAB 2,3 (BACTERIAL VAGINOSIS ASSOCIATED BACTERIA 2, 3); MOBILUNCUS SPP 14.391 Abnormal [facility] BVAB 2,3 (BACTERIAL VAGINOSIS ASSOCIATED BACTERIA 2, 3); MOBILUNCUS SPP Detected Abnormal [facility] WILBERT ALBICANS, PARAPSILOSIS, TROPICALIS 0 [facility] WILBERT ALBICANS, PARAPSILOSIS, TROPICALIS Not detected [facility] WILBERT GLABRATA 0 [facility] Hea lthcare WILBERT GLABRATA Not detected [facility] ealthcare [facility] KRUSEI Not [facility] CHLAMYDIA TRACHOMATIS 0 [facility] CHLAMYDIA TRACHOMATIS Not detected [facility] ERMB, C; MEFA 22.056 Abnormal [facility] ERMB, C; MEFA Detected Abnormal [facility] GARDNERELLA VAGINALIS 27.529 Abnormal [facility] GARDNERELLA VAGINALIS Detected Abnormal [facility] Interpretation and review of laboratory results Abnormal [facility] MEGASPHAERA (TYPES 1, 2) 15.923 Abnormal [facility] MEGASPHAERA (TYPES 1, 2) Detected Abnormal [facility] MYCOPLASMA GENITALIUM 0 [facility] MYCOPLASMA GENITALIUM Not detected [facility] NEISSERIA GONORRHOEAE 0 [facility] NEISSERIA GONORRHOEAE Not detected [facility] TET B, TET M 16.766 Abnormal [facility] Healthc are TET B, TET M Detected Abnormal [facility] TRICHOMONAS VAGINALIS 0 [facility] TRICHOMONAS VAGINALIS Not detected [facility] GLUCOSE 1 HOURon 09-22-2024 Glucose [Mass/Vol] 114 mg/dL NINF - 13 0 mg/dL [facility] 14+ WEEKS ANATOMY SCAN [...] II, MD, PHD at 19-Oct-2024 09:01:31 AM [facility] Normal Not Available Comment on above: Order Comment: US OB ANATOMY SINGLE W US OB CERVICAL LENGTH Estimated Date of Delivery: 03/03/25 Gestational Age as of 09/21/2024: 16w5d Urinalysis macro (dipstick) panel (U)Ordered By: Vicky Rodríguez on 09-21-2024 Bilirubin, UA Negative Negative - 4(70) +++ mg/dL [facility] Blood, UA Negative Negative - 50 Sam/mcL [facility] Healthcare Clarity, UA Clear [facility] Color, UA Yellow [facility] Glucose, UA Negative Negative - 1999(110) ++++ mg/dL [facility] Interpretation and review of laboratory results Normal [facility] Ketones, UA Negative Negative - 160(16) ++++ mg/dL [facility] Healthcare Leukocytes, UA Negative Negative - 500+++ Supa/mcL [facility] Nitrite, UA Negative Negative - Positive [facility] pH, UA 7.5 5 - 9 [facility] Protein, UA Negative Negative - 1999(20) ++++ mg/dL [facility] Spec Grav, UA 1.02 1 - 1.03 [facility] care Urobilinogen, UA 0.2 0.2 - 12 mg/dL [facility] Urinalysis macro (dipstick) panel (U)on 08-17-2024 Bilirubin, UA Negative Negative - 4(70) +++ mg/dL [facility] Blood, UA Negative Negative - 50 Sam/mcL [facility] Healthcare Clarity, UA Clear [facility] Color, UA Yellow [facility] Healthcar e Glucose, UA Negative Negative - 1999(110) ++++ mg/dL [facility] Interpretation and review of laboratory results Abnormal [facility] Ketones, UA Negative Negative - 160(16) ++++ mg/dL [facility] Healthcare Leukocytes, UA Positive Negative - 500+++ Supa/mcL [facility] Comment on above: small Nitrite, UA Negative Negative - Positive [facility] pH, UA 6 5 - 9 [facility] Protein, UA Negative Negative - 1999(20) ++++ mg/dL [facility] Spec Grav, UA 1.03 1 - 1.03 [facility] Urobilinogen, UA 0.2 0.2 - 12 mg/dL [facility] MLR HEMOGLOBIN A1Con 024 Glucose [Mass/Vol] 111 mg/dL [facility] H ealthcare HbA1c (Bld) [Mass fraction] 5.5 % 4.5 - 6.2 % [facility] Comment on above: ADA RECOMMENDED LIMI T 4.0 - 6.0 ADA THERAPEUTIC TARGET < 7.0 ACTION SUGGESTED > 7.0 [facility] Urine Cultureon 08-05-2024 Bacteria identified Cx Nom (U) <9,000 colonies/ml mixed bacterial skin contaminants 2 Days PERFORMED BY: [facility] [address] [place] [address] PATHOLOGIST BULK DELIVERY DRIVER ELICEO SPENCER M.D. Normal [facility] Comment on above: Performed By: #### C UU #### [facility] [address] HCG ( test) Ql (U)o n 07-18-2024 Interpretation and review of laboratory results Abnormal [facility] Healthor re Preg Test, Ur Positive Negative [facility] Urinalysis macro (dipstick) panel (U)on 07-18-2024 Bilirubin, UA Negative Negative - 4(70) +++ mg/dL [facility] Blood, UA Negative Negative - 50 Sam/mcL [facility] Clarity, UA Clear [facility] Healthor re Color, UA Yellow [facility] Health[facility] e Glucose, UA Negative Negative - 1999(110) ++++ mg/dL [facility] Interpretation and review of laboratory results Normal [facility] re Ketones, UA Negative Negative - 160(16) ++++ mg/dL [facility] Leukocytes, UA Negative Negative - 500+++ Supa/mcL [facility] Nitrite, UA Negative Negative - Positive [facility] pH, UA 6.5 5 - 9 [facility] Healthcar e Protein, UA Negative Negative - 1999(20) ++++ mg/dL [facility] Spec Grav, UA 1.02 1 - 1.03 [facility] Urobilinogen, UA 0.2 0.2 - 12 mg/dL [facility] TBH PREG QUANT HCGon 024 HCG QUANTITATIVE 203 mIU/mL [facility] Hea lthcare Comment on above: 5-50 0.2-1 WEEK 50-500 1-2 WEEKS 100-5,000 2-3 WEEKS 500-10,000 3-4 WEEKS 1,000-50,000 4-5 WEEKS 10,000-100,000 5-6 WEEKS 15,000-200,000 6-8 WEEKS 10,000-100,000 2-3 MONTHS [facility] Quick Strepon 09-17-2023 S. pyogenes Org specific cx Ql (Throat) positve [email or web address] Other Quick Strep [email or web address] Other Test, Urineon 08-11 Beta HCG ( test) Ql (U) Negative [email or web address] Other Capillary Glucose POCon Glucose [Mass/Vol] 94 mg/dL Normal 55-99 [facility] Comment on above: Result Comment: Loretta mcneal RN/ Performed By: #### 2 [id number] #### [facility] [address] [place] [address] Consent for Treatmenton Consent for Treatment [id number]#1.[address] [facility] Discharge Instructionson Discharge Instructions [id number] [facility] ED Clinical Summaryon 2022 ED Clinical Summary [address] [address] ED Clinical Summary Person Information Name: FRANCES DOE/[facility]Franco Age: 17 Years : 2005 Sex: Female Language: Greenlandic PCP: Hazel Grady MD Marital Status: Single [...] 03:42:20 07/14/2023 03:42:20 07/14/2023 03:42:20 ADDRESS: [address] [place] [address] DR MONSERRAT Berg [facility] [id number] PHYS DOC NOTES: MEDICAL INFORMATION: Prescriptions Given: New Medications [id number], [address], [place] [id number], [phone] azithromycin (azithromycin 250 mg Tab) 1 Tablets By Mouth every day for 4 Days. Refills: 0. PATIENT EDUCATION INFORMATION: Instructions: Viral Illness, Adult; Otitis Media, Adult Follow up: With: Address: When: Hazel Grady [address] [place] [address] Business (2) In 7 days 07/21/2023 DIAGNOSIS: AOM (acute otitis media); Viral illness Normal [facility] ED Note-Physicianon 07-14-20 ED Note-Physician Basic Information Time Seen: Dom Sarmiento DOFreya 07/14/2023 01:56 Chief Complaint Ear pain and [...] and Complexity of Problems Differential Diagnosis: [] [facility] Data External documents reviewed: N/A My [...] day(s), # 4 tab(s), Refills(s) 0, Pharmacy: [id number], 175, cm, 07/13/23 23:42:00 EST, Height/Length Dosing, 121.7, kg, 07/13/23 23:42:00 EST, Weight Dosing Capillary Glucose POC Influenza A&B Ag Rapid COVID Antigen ([facility]) Resp.syn.virus (Rsv) XR Chest Single View Disposition Plan Discharge Prescription List Prescriptions azithromycin 250 mg Tab, 250 mg= 1 tab(s), Oral, Daily Follow-up With When Contact Information Hazel Grady In 7 days 07/21/2023 [address] [place] [address] Business (2) Additional Instructions: Patient Education Viral [...] 94 mg/dL (07/14/23 02:00:00) POC Device SN: [id number] (07/14/23 02:00:00) POC User ID: [id number] (07/14/23 02:00:00) POC Username: POC Username (07/14/23 [...] Dom Sarmiento DO 07/14/2023 01:56:[address] [facility] Comment on above: Result Comment: Elec [...] Follow these instructions at home: ? Take [id number]-lbt-[id number] and prescription medicines only as told by [...] provider. Document Revised: 11/03/2021 Document Reviewed: 11/03/2021 Else[employer] on Request Patient Education ? 2022 [employer] Infectious Disease Viral Illness, Adult Viruses [...] illne (more content not included)... Normal [facility] ED Patient Summaryon 023 ED Patient Summary [address] [address] Patient Discharge Instructions Person Information Name: FRANCES DOE Age: 17 Years Arrival Date: 07/13/2023 23:32:13 Discharge Diagnosis: AOM (acute otitis media); Viral illness Primary Care Physician: Hazel Grady MD Provider Information Primary Provider: Dom Sarmiento DO Advanced Meat Lugger:None The exam and treatment you received in the Emergency Department were for an urgent problem and are not intended as complete care. It is important that you follow up with a doctor, nurse practitioner, or physician?s assistant kitchen manager for ongoing care. If your symptoms become worse or you do not improve as expected and you are unable to reach your usual health care provider, you should return to the Emergency Department. We are available 24 hours a day. KEVINFRANCES CUADRA has been given the following list of patient education materials, prescriptions and follow-up instructions: Follow-up Instructions: With: Address: When: Hazel Grady [facility] [place] [address] [facility] (2) In 7 days 07/21/2023 In the event that this physician does not participate in your insurance network, please consult with your insurance company to find a nearby participating provider. Patient Education Materials: Viral Illness, Adult; Otitis Media, Adult A MESSAGE TO ALL PATIENTS REGARDING OPIOIDS PRESCRIPTION OPIOIDS: WHAT YOU NEED TO KNOW Prescription opioids can be used to help relieve gpadmogo-eo-gsxmss pain and are often prescribed following a [...] be struggling with addiction, tell your health long term care administrator and ask for guidance or call [facility] National Helpline at 1-907-015-IBVM. (more content not included)... Normal [facility] Influenza A&B Agon 3 Influenzae A Ag Negative Normal Negative [facility] Comment on above: Performed By: #### 2 [id number] #### [facility] [address] [place] [address] Influenzae B Ag Negative Normal Negative [facility] Comment on above: Result Comment: Test sensitivity and specificity vary for age group, specimen type, antigen types, and prevalence of disease. Test results must be evaluated in conjunction with other clinical data available to the physician. Individuals who received nasally administered Influenza A vaccine may have positive test results up to 3 days after vaccination. Performed By: #### 2 [id number], [id number], [id number] #### [facility] [address] [place] [address] Prescriptions/Work Noteson 1 09-14-2022 Prescriptions/Work Notes [id number] [facility] Rapid COVID Antigen ([facility])on 07-14-2023 Rapid COV Int NEG Ctl Pass [facility] Comment on above: Performed By: #### 2 [id number] #### [facility] [address] [place] [address] Rapid COV Int POS Ctl Pass Normal [facility] Comment on above: Performed By: #### 2 [id number] #### [facility] [address] [place] [address] SARS-CoV+SARS-CoV-2 (COVID-19) Ag IA.rapid Ql (Resp) Not detected Normal Not Detected [facility] Comment on above: Result Comment: The [employer] METER[employer]? System for Rapid Detection of SARS-CoV-2 is [...] or revoked sooner. Performed By: #### 2 [id number], [id number] #### [facility] [address] [place] [address] Resp.syn.virus (Rsv)on 07-14 RSV Ag IA.rapid Ql (Nph) Negative Normal Negative [facility] Comment on above: Performed By: #### 2 [id number] #### [facility] [address] [place] [address] XR Chest Single Viewon 07-14 XR Chest [...] (Electronic Signature): 07/14/2023 7:48 am Signed by: Dxe Leyva MD, V. Transcribed by: ANGELINA Technologist: HILL Technical Comments Radiation Dose: Ka,r in mGy = na DAP = na Normal [facility] Formson 12-24-2022 Forms [id number] [facility] Vital Signs Date Time Vital Sign Value Performing Clinician Facility 12-06-2024 13:53-0400 Body weight 139.71 kg Lynette Gunter [employer] Work Phone: [facility] 12-06-2024 13:53-0400 Diastolic blood pressure 70 mm[Hg] Lynette Gunter [employer] Work Phone: [facility] 12-06-2024 13:53-0400 Systolic blood pressure 114 mm[Hg] Lynette Gunter [employer] Work Phone: [facility] 11-15-2024 10:36-0400 Body weight 139.16 kg Yogesh Canales DO Work Phone: [facility] 11-15-2024 10:36-0400 Diastolic blood pressure 78 mm[Hg] Yogesh Ally DO Work Phone: [facility] 11-15-2024 10:36-0400 Systolic blood pressure 130 mm[Hg] Yogesh Ally DO Work Phone: [facility] 10-18-2024 14:37-0400 Body weight 136.99 kg Maryanne Frametown PA Work Phone: [facility] 10-18-2024 14:37-0400 Diastolic blood pressure 78 mm[Hg] Maryanne Marci PA Work Phone: [facility] 10-18-2024 14:37-0400 Systolic blood pressure 130 mm[Hg] Maryanne Frametown PA Work Phone: [facility] 09-21-2024 16:43-0500 Body weight 136.9 kg Maryanne Marci PA Work Phone: [facility] 09-21-2024 16:43-0500 Diastolic blood pressure 76 mm[Hg] Maryanne Frametown PA Work Phone: [facility] 09-21-2024 16:43-0500 Systolic blood pressure 118 mm[Hg] Maryanne Frametown PA Work Phone: [facility] 08-17-2024 11:52-0500 Body weight 138.8 kg Yogesh Ally DO Work Phone: [facility] 08-17-2024 11:52-0500 Diastolic blood pressure 78 mm[Hg] Yogesh Ally DO Work Phone: [facility] 08-17-2024 11:52-0500 Systolic blood pressure 122 mm[Hg] Yogesh Ally DO Work Phone: [facility] 07-18-2024 11:15-0500 Body weight 139.71 kg [facility] 07-18-2024 11:15-0500 Diastolic blood pressure 74 mm[Hg] [facility] Nurse [facility] 07-18-2024 11:15-0500 Systolic blood pressure 118 mm[Hg] [facility] 02-09-2024 09:35-0500 Body height 175.26 cm Tiesha Flood Other [email or web address] Other 09-17-2023 09:35-0500 Body mass index (BMI) [Ratio] 40.16 kg/m2 Tiesha Flood Other [email or web address] Other 09-17-2023 09:35-0500 Body temperature 99.2 [degF] Tiesha Flood Other [email or web address] Other 09-17-2023 09:35-0500 Body weight 123.38 kg Tiesha Flood Other [email or web address] Other 09-17-2023 09:35-0500 Respiratory rate 18 /min Tiesha Flood Other [email or web address] Other 09-17-2023 09:35-0500 SaO2% (BldA) [Mass fraction] 97 % Tiesha Flood Other [email or web address] Other 09-02-2023 09:30-0500 Body height 175.26 cm Sheree Cheung Other [email or web address] Other 09-02-2023 09:30-0500 Body mass index (BMI) [Ratio] 40.21 kg/m2 Sheree Cheung Other [email or web address] Other 09-02-2023 09:30-0500 Body weight 123.52 kg Sheree Cheung Other [email or web address] Other 09-02-2023 09:30-0500 Diastolic blood pressure 78 mm[Hg] Sheree Cheung Other [email or web address] Other 09-02-2023 09:30-0500 Respiratory rate 18 /min Sheree Jonatan Other [email or web address] Other 09-02-2023 09:30-0500 SaO2% (BldA) [Mass fraction] 97 % Sheree Cheung Other [email or web address] Other 09-02-2023 09:30-0500 Systolic blood pressure 120 mm[Hg] Sheree Cheung Other [email or web address] Other 07-27-2023 09:30-0500 Body height 175.26 cm Sheree Cheung Other [email or web address] Other 07-27-2023 09:30-0500 Body mass index (BMI) [Ratio] 40.02 kg/m2 Sheree Cheung Other [email or web address] Other 07-27-2023 09:30-0500 Body weight 122.93 kg Sheree Jonatan Other [email or web address] Other 07-27-2023 09:30-0500 Diastolic blood pressure 76 mm[Hg] Sheree Cheung Other [email or web address] Other 07-27-2023 09:30-0500 Respiratory rate 16 /min Sheree Cheung Other [email or web address] Other 07-27-2023 09:30-0500 SaO2% (BldA) [Mass fraction] 98 % Sheree Cheung Other [email or web address] Other 07-27-2023 09:30-0500 Systolic blood pressure 120 mm[Hg] Sheree Cheung Other [email or web address] Other 01-21-2022 15:35-0400 Body height 175.26 cm Almaz Huerta Other [email or web address] Other 01-21-2022 15:35-0400 Body mass index (BMI) [Ratio] 30.86 kg/m2 Almaz Huerta Other [email or web address] Other 01-21-2022 15:35-0400 Body temperature 97.3 [degF] Almaz Huerta Other [email or web address] Other 01-21-2022 15:35-0400 Body weight 94.8 kg Almaz Huerta Other [email or web address] Other 01-21-2022 15:35-0400 Diastolic blood pressure 73 mm[Hg] Almaz Huerta Other [email or web address] Other 01-21-2022 15:35-0400 Respiratory rate 16 /min Almaz Huerta Other [email or web address] Other 01-21-2022 15:35-0400 SaO2% (BldA) [Mass fraction] 97 % Almaz Huerta Other [email or web address] Other 01-21-2022 15:35-0400 Systolic blood pressure 133 mm[Hg] Almaz Huerta Other [email or web address] Other Encounters Encounter Date Encounter Type Care Provider Facility Start: 12-16-2024 End: 12-16-2024 Clinisync Result Encounter Yogesh Ally DO Work Phone: [facility] Unsolicited Start: 12-16-2024 End: 12-16-2024 Clinisync Result Encounter Yogesh Ally DO Work Phone: [facility] Unsolicited Start: 12-15-2024 End: 12-15-2024 Clinisync Result Encounter Yogesh Ally DO Work Phone: [facility] Unsolicited Start: 12-15-2024 End: 12-15-2024 Clinisync Result Encounter Yogesh Ally DO Work Phone: [facility] Unsolicited Start: 12-06-2024 End: 12-06-2024 Bamboo flowsheet Lynette Lyric [employer]NER Work Phone: [facility] Start: 12-06-2024 End: 12-06-2024 Bamboo flowsheet Lynette Lyric [employer] Work Phone: [facility] Start: 12-06-2024 End: 12-06-2024 flow sheet Lynette Lyric [employer] Work Phone: [facility] Comment on above: size inconsist ent with dates (Primary Dx); 27 weeks gestation of ; Second trimester Start: 12-06-2024 End: 12-06-2024 ambulatory LYNETTE LYRIC Not Available Start: 11-30-2024 End: 11-30-2024 Clinisync Result Encounter Yogesh Ally DO Work Phone: [facility] Unsolicited Start: 11-30-2024 End: 11-30-2024 Clinisync Result Encounter Yogesh Ally DO Work Phone: [facility] Unsolicited Start: 11-15-2024 End: 11-15-2024 flow sheet Yogesh Ally DO Work Phone: [facility] Comment on above: 24 weeks gestation o f ; Second trimester ; Diabetes mellitus screening Start: 11-15-2024 End: 11-15-2024 ambulatory YOGESH ALLY Not Available Start: 10-18-2024 End: 10-18-2024 flow sheet Maryanne FOWLER Work Phone: [facility] Comment on above: Second trimester pre gnancy; 20 weeks gestation of Start: 10-18-2024 End: 10-18-2024 ambulatory MARYANNE COVARRUBIAS Not Available Start: 09-22-2024 End: 09-22-2024 Clinisync Result Encounter Maryanne Covarrubias JANETH Work Phone: [facility] Unsolicited Start: 09-22-2024 End: 09-22-2024 Clinisync Result Encounter Maryanne Covarrubias JANETH Work Phone: [facility] Unsolicited Start: 09-21-2024 End: 09-21-2024 flow sheet Maryanne Covarrubias JANETH Work Phone: [facility] Comment on above: STD exposure; Vaginal discharge; Second trimester ; 16 weeks gestation of ; Screening, , for anatomic survey; Diabetes mellitus screening Start: 09-21-2024 End: 09-21-2024 ambulatory MARYANNE MARCI Not Available Start: 09-21-2024 End: 09-21-2024 Bamboo flowsheet Maryanne Covarrubias JANETH Work Phone: [facility] Start: 09-21-2024 End: 09-23-2024 Bamboo flowsheet Maryanne Covarrubias JANETH Work Phone: [facility] Start: 09-21-2024 End: 09-23-2024 External Result Encounter Maryanne Covarrubias JANEHT Work Phone: [facility] Unsolicited Start: [...] Start: 08-05-2024 End: 08-05-2024 ambulatory Sheree Cheung Facility:[facility] Start: 07-18-2024 End: 07-18-2024 ambulatory [facility] Ally Nurse [facility] Comment on above: GA: 7w3d Start: 06-26-2024 End: 06-26-2024 Clinisync Result Encounter Maryanne FOWLER Work Phone: [facility] Unsolicited Start: 06-26-2024 End: 06-26-2024 Clinisync Result Encounter Maryanne FOWLER Work Phone: [facility] Unsolicited Start: 09-17-2023 End: 09-17-2023 ambulatory Tiesha Flood Other [email or web address] Other Start: 09-17-2023 Office outpatient vi sit 15 minutes Tiesha Flood [facility] [place] Start: 09-02-2023 End: 09-02-2023 ambulatory Sheree Cheung Other [email or web address] Other Start: 09-02-2023 Office outpatient vi sit 25 minutes Sheree Cheung [facility] [place] Start: 07-27-2023 End: 07-27-2023 ambulatory Sheree Cheung Other [email or web address] Other Start: 07-27-2023 Encounter for genera l adult medical examination without abnormal findings Sheree Cheung [facility] [place] Start: 07-27-2023 Initial preventive medicine new pt age 18-39yrs Sheree Cheung [facility] [place] Start: 07-14-2023 End: 07-14-2023 Emergency department patient visit Dom Sarmiento Facility:[facility] Start: 12-24-2022 ambulatory Dom Sarmiento Facility: [facility] [place] Start: 04-06-2022 End: 04-06-2022 ambulatory HAZEL GRADY Facility: Start: 01-21-2022 (URG) Urgent Care Visit Alamz Benavidezcarolann romero [facility] [place] Start: 01-21-2022 End: 01-21-2022 ambulatory Almaz Huerta Other [email or web address] Other Procedures Date Procedure Procedure Detail Performing Clinician Start: 12-16-2024 ALL CBC WITH AUTO DIFF Yogesh Ally DO Work Phone: Start: 12-15-2024 [facility] UA (CLEAN/CATCH) INFORMATION SYSTEMS COORDINATOR/MICRO IF IND. Yogesh Ally DO Work Phone: Start: 12-06-2024 Urnls dip stick/tabl et rgnt [...] AM EDT Routine [facility] [address] [place] [address] Ally, Yogesh, DO [address] [place], [place] [id number] [facility] Start: 12-28-2024 End: 12-28-2024 Professional / ancillary services management 12/28/2024 9:00 AM EDT Ancillary Procedure [facility] [address] [place] [address] [facility] Start: 12-06-2024 End: [...] mellitus screening Expected: 11/15/2024 (Approximate), Expires: 11/15/2025 [facility] Comment on above: Expected: 11/15/2024 (Approximate), Expires: 11/15/2025 Start: 11-15-2024 End: 11-15-2024 Patient encounter procedure 11/15/2024 1:10 PM EDT Routine [facility] [address] [facility] [id number] Yogesh Canales DO [address] [place] [address] [facility] Start: 10-18-2024 End: 10-18-2024 Patient encounter procedure 10/18/2024 2:30 PM EDT Routine [facility] [address] [place] [id number] Maryanne Covarrubias, PA [address] [place] [address] [place] [address] [facility] Start: 10-18-2024 End: 10-18-2024 Professional / ancillary services management 10/18/2024 1:00 PM EDT Ancillary Procedure [facility] [address] [place] [employer] [address] [place] [address] [facility] Start: 09-21-2024 End: 09-21-2024 Patient encounter procedure 09/21/2024 3:20 PM EST Routine [facility] [address] [place] [address] Maryanne Covarrubias, PA [address] [place] [address] Arrived [facility] Comment on above: Arrived Start: 09-21-2024 End: 11-19-2024 Alpha fetoprotein, maternal Alpha fetoprotein, maternal Lab Routine Screening, , for anatomic survey Expected: 09/21/2024 (Approximate), Expires: 11/19/2024 [facility] Comment on above: Expected: 09/21/2024 (Approximate), Expires: 11/19/2024 Start: 09-21-2024 End: 09-21-2025 Measurement of glucose 1 hour after glucose challenge for glucose tolerance test Glucose tolerance, 1 hour Lab Routine Diabetes mellitus screening Expected: 09/21/2024 (Approximate), Expires: 09/21/2025 [facility] Comment on above: Expected: 09/21/2024 (Approximate), Expires: 09/21/2025 Start: 09-21-2024 End: 09-21-2025 US for US OB 14+ weeks anatomy scan Imaging Routine Screening, , for anatomic survey Expected: 09/21/2024, Expires: 09/21/2025 [facility] Comment on above: Expected: 09/21/2024 , Expires: 09/21/2025 Start: 09-21-2024 End: 09-21-2024 Patient encounter procedure 09/21/2024 9:30 AM EST Routine [facility] [address] [facility] [address] Maryanne Covarrubias PA [address] [facility] [place] [address] [facility] Start: 08-17-2024 End: 08-17-2024 Patient encounter procedure [facility] Comment on above: Arrived Start: 07-18-2024 End: 07-18-2025 ABO/Rh ABO/Rh Lab Routine Missed menses , unspecified gestational age Expected: 07/18/2024 (Approximate), Expires: 07/18/2025 [facility] Comment on above: Expected: 07/18/2024 (Approximate), Expires: 07/18/2025 Start: 07-18-2024 End: 07-18-2025 Blood type and Indirect antibody screen panel - Blood Type and screen Lab Routine Missed menses , unspecified gestational age Expected: 07/18/2024 (Approximate), Expires: 07/18/2025 [facility] Work Phone: Comment on above: Expected: 07/18/2024 (Approximate), Expires: 07/18/2025 Start: 07-18-2024 End: 07-18-2025 Drugs of abuse panel - Urine by Screen method Rapid drug screen, urine Lab Routine , unspecified gestational age Encounter for supervision of normal first in first trimester Expected: 07/18/2024 (Approximate), Expires: 07/18/2025 [facility] Comment on above: Expected: 07/18/2024 (Approximate), Expires: 07/18/2025 Start: 07-18-2024 End: 07-18-2025 US Pelvis transvaginal US OB transvaginal Imaging Routine Missed menses Expected: 07/18/2024 (Approximate), Expires: 07/18/2025 [facility] Comment on above: Expected: 07/18/2024 (Approximate), Expires: 07/18/2025 Start: 07-18-2024 End: 07-18-2024 ambulatory 07/18/2024 10:30 AM EST Initial [facility] [address] [facility] [phone] [facility] Start: 07-18-2024 End: 07-18-2024 Professional / ancillary services management 07/18/2024 10:00 AM EST Ancillary Procedure [facility] [address] [facility] [phone] [facility] Bacteria identified in Urine by Culture Urine culture Microbiology Routine Missed menses Ordered: 07/18/2024 [facility] Comment on above: Ordered: 07/18/2024 CBC W Auto Different ial panel - Blood CBC and differential Lab Routine Missed menses , unspecified gestational age Ordered: 07/18/2024 [facility] Comment on above: Ordered: 07/18/2024 CHLAMYDIA TRACHOMATI S (GENITO/STI) CHLAMYDIA TRACHOMATIS (GENITO/STI) Lab Routine STD exposure Vaginal discharge Ordered: 09/21/2024 [facility] Comment on above: Ordered: 09/21/2024 Hemoglobin A1c/Hemoglobin.total in Blood Hemoglobin A1c Lab Routine Missed menses , unspecified gestational age Ordered: 07/18/2024 [facility] Comment on above: Ordered: 07/18/2024 Hepatitis B virus surface Ag [Presence] in Serum or Plasma by Immunoassay Hepatitis B surface antigen Lab Routine Missed menses , unspecified gestational age Ordered: 07/18/2024 [facility] Comment on above: Ordered: 07/18/2024 Hepatitis C virus Ab [Presence] in Serum or Plasma by Immunoassay Hepatitis C antibody Lab Routine Missed menses , unspecified gestational age Ordered: 07/18/2024 [facility] Comment on above: Ordered: 07/18/2024 HIV-1/HIV-2 antigen/antibody combination immunoassay HIV-1 and HIV-2 antibodies Lab Routine Missed menses , unspecified gestational age Ordered: 07/18/2024 [facility] Comment on above: Ordered: 07/18/2024 Neisseria gonorrhoea e DNA [Presence] in Unspecified specimen by ISAURO with probe detection Neisseria gonorrhea DNA probe, direct Lab Routine STD exposure Vaginal discharge Ordered: 09/21/2024 [facility] Comment on above: Ordered: 09/21/2024 Reagin Ab [Presence] in Serum by RPR RPR Lab Routine Missed menses , unspecified gestational age Ordered: 07/18/2024 [facility] Comment on above: Ordered: 07/18/2024 Rubella antibody, IgG Rubella an tibody, IgG Lab Routine Missed menses , unspecified gestational age Ordered: 07/18/2024 [facility] Comment on above: Ordered: 07/18/2024 SURESWAB(R) ADVANCED VAGINITIS PLUS, TMA SURESWAB(R) ADVANCED VAGINITIS PLUS, TMA Pathology and Cytology Routine STD exposure Vaginal discharge Ordered: 09/21/2024 [facility] Work Phone: Comment on above: Ordered: 09/21/2024 Immunizations Immunization Date Immunization Notes Care Provider Chase sequeira 03-17-2021 Human Papillomavirus 9-valent vaccine Almaz Huerta Other [email or web address] Other 02-10-2021 Do not use COVID-19 Pfizer 2 dose Almazjordon Huerta Other [email or web address] Other 08-04-2016 Human Papillomavirus 9-valent vaccine Almaz Deanna Other [email or web address] Other 05-22-2016 Human Papillomavirus 9-valent vaccine Almaz Deanna Other [email or web address] Other 07-29-2015 hepatitis A vaccine, pediatric/adolescent dosage, 2 dose schedule Almaz Deanna Other [email or web address] Other 04-02-2007 hepatitis A vaccine, pediatric/adolescent dosage, 2 dose schedule Almaz Deanna Other [email or web address] Other 04-14-2005 diphtheria, tetanus toxoids and acellular pertussis vaccine, 5 pertussis antigens Almaz Deanna Other [email or web address] Other 10-09-2004 measles, mumps and rubella virus vaccine Almaz Deanna Other [email or web address] Other 04-21-2004 DTaP-hepatitis B and poliovirus vaccine Almaz Deanna Other [email or web address] Other 04-21-2004 haemophilus influenz ae type b vaccine, PRP-T conjugate Almaz Deanna Other [email or web address] Other 02-19-2004 DTaP-hepatitis B and poliovirus vaccine Almaz Edanna Other [email or web address] Other 02-19-2004 haemophilus influenz ae type b vaccine, PRP-T conjugate Almaz Deanna Other [email or web address] Other 2003 DTaP-hepatitis B and poliovirus vaccine Almaz Deanna Other [email or web address] Other 2003 haemophilus influenz ae type b vaccine, PRP-T conjugate Almaz Huerta Other [email or web address] Other 2003 hepatitis B vaccine, pediatric or pediatric/adolescent dosage Almaz Huerta Other [email or web address] Other Payers Date Payer Category Payer Self-pay 2021 Private Health Insurance 2003 Unknown [id number] 2.16.8 [id number] 2003 Unknown [id number] 2.16.84 [id number] 2003 Unknown [id number] 2.16.84 [id number] 2003 Unknown [id number] 2.16.84 [id number] 2003 Unknown [id number] 2.16.84 [id number] 2003 Unknown [id number] 2.16.84 [id number] 2003 Unknown [id number] 2.16.84 [id number] 2003 Unknown [id number] 2.16.84 [id number] 2003 Unknown [id number] 2.16.84 [id number] 1959 Unknown [id number] 1959 Unknown [id number] 1959 Unknown [id number] 2.16.84 [id number] Unknown [id number] 2.16.8 [id number] Social History Date Type Detail Facility Unknown if ever smoked [email or web address] Other Sex Assigned At [email or web address] Other Tobacco smoking status GAIS Tobacco smoking consumption unknown [facility] Start: [...] nursing note reviewed. Exam conducted with a composition mixer present. Vitals: There is no height or [...] Lynette Gunter NP documented in this encounter [facility] 11-15-2024 History of Presen t illness [...] nursing note reviewed. Exam conducted with a composition mixer present. Vitals: There is no height or [...] Yogesh Canales DO documented in this encounter [facility] 10-18-2024 History of Presen t illness [...] of: JANETH Ji documented in this encounter [facility] 09-21-2024 History of Presen t illness [...] obtained without difficulty and patient was given [facility] order to have obtained. Orders Placed This [...] of: JANETH Ji documented in this encounter [facility] 08-17-2024 History of Presen t illness [...] nursing note reviewed. Exam conducted with a composition mixer present. Vitals: There is no height or [...] or undercooked meat, and stay away from [facility]. Patient has been consulted regarding any further [...] Yogesh Canales DO documented in this encounter [facility] 07-18-2024 History of Presen t illness [...] or undercooked meat, and stay away from [facility]. Patient has also been advised to not [...] Jazmyne Oliveira MA documented in this encounter [facility] 09-17-2023 Evaluation note Encounter Date Diagnosis [...] understanding and is agreeable to treatment plan. [email or web address] Other 01-25-2024 Evaluation note* Encounter Date Diagnosis [...] and no personal patient information was compromised. [email or web address] Other 12-19-2023 Evaluation note* Encounter Date Diagnosis [...] (ICD-10 - F32.1) See above treatment plan. [email or web address] Other 06-15-2022 Evaluation note* Encounter Date Diagnosis Assessment Notes Treatment Notes Treatment Clinical Notes Jan, Pre-employment examination (ICD-10 - Z02.1) [email or web address] Other Evaluation note* Diagnosis Missed menses , [...] Reported* Type Description Date Medical History vertigo [email or web address] Other Reason for referral (narrative)* Reason Refer to Sylwia berg or counseling for anxiety and depression Diagnosis 1 MATTHIAS (generalized anx iety disorder) (F41.1) Referral Organization [facility] Referring Provider First Name Sheree Referring Provider Last Name Jonatan Referring Provider Specialty Nurse Pract itioner Referred Provider Specialty Psychiatry Referral Priority Routine [email or web address] Other Summary Purpose Family History No Family [...] and content) DATE CREATED AUTHOR 04/10/2022 [facility] DATE CREATED AUTHOR AUTHOR'S ORGANIZ ATION 08/13/2023 [facility] DATE CREATED AUTHOR AUTHOR'S ORGANIZ ATION 08/09/2024 [facility] DATE CREATED AUTHOR AUTHOR'S ORGANIZ ATION 12/11/2024 [facility] [employer] Care Teams (unrecognized sec tion and content) Medical Delivery Technician Relationship Specialty Start Date End Date Hazel [place] [address] PCP - General Family Medicine 07/18/24 Medical Delivery Technician Relationship Specialty Start Date End Date Hazel [place] [address] PCP - General Family Medicine 07/18/24 Medical Delivery Technician Relationship Specialty Start Date End Date Hazel Grady MD [address] [place] [address] PCP - General Family Medicine 07/18/24 Medical Delivery Technician Relationship Specialty Start Date End Date Hazel Grady MD [address] [place] [address] PCP - General Family Medicine 07/18/24 Medical Delivery Technician Relationship Specialty Start Date End Date Hazel Grady MD [address] [place] [address] PCP - General Family Medicine 07/18/24 Medical Delivery Technician Relationship Specialty Start Date End Date Hazel Grady MD [address] [place] [address] PCP - General Family Medicine 07/18/24 Medical Delivery Technician Relationship Specialty Start Date End Date Hazel Grady MD [address] [place] [address] PCP - General Family Medicine 07/18/24 Medical Delivery Technician Relationship Specialty Start Date End Date Hazel Grady MD [address] [place] [address] PCP - General Family Medicine 07/18/24 Medical Delivery Technician Relationship Specialty Start Date End Date Hazel Grady MD [address] [place] [address] PCP - General Family Medicine 07/18/24 FOR [...] BE BASED ON THE PRIMARY CLINICAL RECORDS. [facility] [facility]. provides no warranty or guarantee of the accuracy or completeness of information in this document.
[2025-01-03 10:27] VITALS: BP 126/71; PULSE 118
--- NOTE | 2025-01-03 11:09 | PC.NURSE ---
RN calls to Dr. Canales's office for office to set up MFM referral for oligohydramnios. Office aware and making referral. Dr. Canales discusses plan of care with patient at bedside and patient verbalizes understanding on plan of care.
== END 2025-01-03 11:12 | disposition home or self-care (01) ==
LOC: US 10:03 → FBC 10:05
PROVIDERS: PCP Family Medicine; Visit Provider Obstetrics & Gynecology
DX: O41.03X1 Oligohydramnios, third trimester, fetus 1 (principal)
CPT/HCPCS: 76818

== ENCOUNTER 2025-01-06 09:57 | Outpatient (OUT) | payer OTHER, SELFPAY ==
--- OUTSIDE RECORDS SUMMARY | 2023-08-23 10:15 | XMS_ITS ---
Author Organization [facility] Address [address] [place] [address] Care Team Providers Care Card Lacer Jacquard Name Role Phone Amanda Wilson Primary Care Provider REASON FOR VISIT NEW PT REFERRAL FROM [facility] Encounters Encounter Location Date Provider Diagnosis [facility] [address] [place] [address] 08/23/2023 Amanda Wilson Plan Of Treatment No Information Progress Notes * YUMIKO DOEEDOB: [birth year] (19 yo F)Acc No.[id number]:08/23/2023 Consult - Patient Patient: JIMBO PICHARDO Provider: JOSEPH Dumont :2005 A ge:17 Y S ex:Female Date:08/23/2023 Address:[address], [place], [id number] Subjective: * Chief Complaints: * 1 . NEW PT REFERRAL FROM [facility]. Objective: Therapeutic Interventions: Assessment: Plan: * Images: Care Plan Details* * Electronic signature of JOSEPH Sheikh on 01/06/2025 at 10:01 AM EDT Sign off status: Pending * Provider: JOSEPH Dumont Date: 08/23/2023 Generated for Jessyi ng/Faxing/eTransmitting on: 0 01/06/2025 10:01 AM EDT
--- OUTSIDE RECORDS SUMMARY | 2024-12-28 09:00 | XMS_ITS | Encounter Summary ---
Author Organization [facility] Address [address] [place] [address] Care Team Providers Care Automobile Service Station Manager Name Role Phone David Awan MD Primary Care Provider [phone] Encounter Details Date Type Department Care Team (Latest Contact Info) Description 12/28/2024 9:00 AM EDT Ancillary Procedure [facility] [address] [place] [address] [place] [address] size inconsistent with dates Social History [...] 1:30 PM EDT Routine [facility] [address] [place], [place] [address] [address] Maryanne Whiteside PA [address] [place] [address] Dr [place], [facility] documented as of this encounter Procedures [...] II, MD, PHD at 29-Dec-2024 12:17:39 PM [facility] Procedure Note Dorothy Duckworth MD - [...] signed by DOROTHY DUCKWORTH II, MD, PHD [id number] 12:17:39 PM [facility] us Lynette Gunter WAREHOUSE ATTENDANT IMG OB US PROCEDURES Final Re sult documented in this encounter Visit Diagnoses Diagnosis size inconsistent with dates documented in this encounter Care Teams Automobile Service Station Manager Relationship Specialty Start Date End Date David Awan MD [address] [place] [address] PCP - General Family Medicine 07/18/24 documented as of this encounter
--- OUTSIDE RECORDS SUMMARY | 2024-12-28 09:50 | XMS_ITS | Encounter Summary ---
Author Organization [facility] Address [address] [facility] [place] [address] Care Team Providers Care Cementing Machine Operator Name Role Phone David Awan MD Primary Care Provider Reason for Visit * Reason Comments Routine Visit Encounter Details Date Type Department Care Team (Late st Contact Info) Description 12/28/2024 9:50 AM EDT Routine [facility] [address] [place] [address] Cb Canales, DO [address] [facility] [place] [address] 30 weeks gestation of ; Third trimester [...] nursing note reviewed. Exam conducted with a vice president & general manager brand [place] present. Vitals: There is no height or [...] PM EDT [facility]ine [facility] [address] [facility] [place] [phone] Maryanne Whiteside PA [address] [place] [address] Scheduled Orders Name Type Priority Associated Diagnoses [...] gestation documented in this encounter Care Teams Cementing Machine Operator Relationship Specialty Start Date End Date David Awan MD [address] [place] [id number] PCP - General Family Medicine 07/18/24 documented as of this encounter
--- OUTSIDE RECORDS SUMMARY | 2025-01-06 10:00 | XMS_ITS | CCD ---
Author Organization [facility] Care Team Providers Care Rn Mds Coordinator Name Role Phone Almaz Huerta Unavailable HAZEL [...] GUNTER Attending Unavailable YOGESH CANALES Attending Unavailable YOGESH CANALES Attending Unavailable Allergies Allergy Classification Reported Allergen(s) Allergy Type Date of Onset Reaction(s) Facility (20 sources) Amoxicillin; Translations: [amoxicillin] Drug Allergy 4 swelling, Rash [facility] Repository (1 source) Amoxicillin Drug Allergy 6 [facility] Repository (1 source) Amoxicillin Drug Allergy 4 [facility] Repository Medications Current Medications Medication [...] Active magnesium oxide 400 mg oral tablet (15 sources) Start: 08-17-2024 End: 09-16-2024 take 1 tablet by mouth once daily magnesium oxide (Mag-Ox) 400 MG tablet Take 1 tablet by mouth Daily 09/16/2024 Active promethazine hydrochloride 12.5 mg oral tablet (20 sources) Phenothiazine Start: 08-17-2024 take 1 tablet [...] (Original) ondansetron 4 mg disintegrating oral tablet (12 sources) Serotonin-3 Receptor Antagonist Start: 07-18-2024 End: [...] 09-21-2024 Episodic Other and delivery including normal (14 sources) ; Translations: [Encounter for supervision of [...] Translations: [Acute pharyngitis, unspecified] Onset: 04-07-2022 Episodic Polyhydramnios and other problems of amniotic cavity (2 sources) Oligohydramnios; Translations: [Oligohydramnios, third trimester, fetus 1] 12-28-2024 Episodic Residual codes; unclassified (2 sources) Gestation [...] [27 weeks gestation of ] 12-06-2024 Episodic Residual codes; unclassified (2 sources) Gestation period, 30 weeks; Translations: [30 weeks gestation of ] 12-28-2024 Episodic Past or Other Problems Problem Classification Problem Date Documented Da te Episodic/Chronic Administrative/social admission (1 source) Encounter for pre-employment examination Onset: 01-21-2022 Resolved: 01-21-2022 Episodic Results Test Name Value Interpretation Reference Range Facility US OB BPP W NON-STRESS on 01-03-2025 [place] [address] Ultrasound Report Signed Patient: FRANCES DOE MR#: [id number] : 2005 Acct:[id number] Age/Sex: 19 / F ADM Date: 01/03/25 Loc: [facility] 251-[address]: Yogesh Canales D.O. Ordering Physician: Yogesh Canales D.O. Date of Service: 01/03/25 Procedure(s): US OB BPP w non-stress Accession Number(s): [id number] cc: Yogesh Canales D.O.; HAZEL GRADY [place] [address] Patient Name: FRANCES DOE MRN: [facility]:[id number] date: 2005 Sex: F Assigned Patient Location: [facility] Current Patient Location: [facility] Accession/Order Number: [id number] Exam Date: 01/03/2025 10:37 Report Date: 01/03/2025 10:43 At the request of: YOGESH CANALES DO Procedure: US OB BPP w non-stress BIOPHYSICAL PROFILE: CLINICAL INFORMATION: Oligohydramnios O41.03x1 COMPARISON: 07/18/2024 There is a single live intrauterine gestation in cephalic presentation. The reported gestational age is 31 weeks 4 days. The heart rate [id number] beats per minute. FINDINGS: TONE: 1 or more episodes of activity extension and flexion of extremity or opening and closing of the hand [Y] 2/2 GROSS BODY MOVEMENTS: 3 or more discrete body or limb movements [Y] 2/2 BREATHING MOVEMENTS: 1 or more episodes of breathing lasting at least 30 seconds [Y] 2/2 JEROD: A single deepest vertical pocket of amniotic fluid greater than 2 cm [Y] 2/2 JEROD: 6.6 cm. The 2.5th percentile is 7.9 cm. Total score: 8/8 US/US OB BPP w non-stress IMPRESSION: NORMAL BIOPHYSICAL PROFILE. OLIGOHYDRAMNIOS . Impression dictated by: Aparna Nascimento M.D. 01/03/2025 10:43 AM Dictation Location: [place] [address] Electronically authenticated by: [id number] Y Date: 01/03/2025 10:43 Dictated By: Aparna Nascimento M.D. Signed By: 01/03/25 1046 DD/ 1043 TD/TT: Geologic Technician: [facility] Radiology, Radiologist, MD - 01/03/2025 [place] [address] Ultrasound Report Signed Patient: FRANCES DOE MR#: [id number] : 2005 Acct:[id number] Age/Sex: 19 / F ADM Date: 01/03/25 Loc: [facility] 251-[address]: Yogesh Canales D.O. Ordering Physician: Yogesh Canales D.O. Date of Service: 01/03/25 Procedure(s): US OB BPP w non-stress Accession Number(s): [id number] cc: Yogesh Canales D.O.; HAZEL GRADY [place] [address] Patient Name: FRANCES DOE MRN: [facility]:[id number] date: 2005 Sex: F Assigned Patient Location: [facility] Current Patient Location: [facility] Accession/Order Number: [id number] Exam Date: 01/03/2025 10:37 Report Date: 01/03/2025 10:43 At the request of: YOGESH CANALES DO Procedure: US OB BPP w non-stress BIOPHYSICAL PROFILE: CLINICAL INFORMATION: Oligohydramnios O41.03x1 COMPARISON: 07/18/2024 There is a single live intrauterine gestation in cephalic presentation. The reported gestational age is 31 weeks 4 days. The heart rate [id number] beats per minute. FINDINGS: TONE: 1 or more episodes of activity extension and flexion of extremity or opening and closing of the hand [Y] 2/2 GROSS BODY MOVEMENTS: 3 or more discrete body or limb movements [Y] 2/2 BREATHING MOVEMENTS: 1 or more episodes of breathing lasting at least 30 seconds [Y] 2/2 JEROD: A single deepest vertical pocket of amniotic fluid greater than 2 cm [Y] 2/2 JEROD: 6.6 cm. The 2.5th percentile is 7.9 cm. Total score: 8/8 US/US OB BPP w non-stress IMPRESSION: NORMAL BIOPHYSICAL PROFILE. OLIGOHYDRAMNIOS . Impression dictated by: Aparna Nascimento M.D. 01/03/2025 10:43 AM Dictation Location: [place] [address] Electronically authenticated by: [id number] Y Date: 01/03/2025 10:43 Dictated By: Aparna Nascimento M.D. Signed By: 01/03/25 1046 DD/ 1043 TD/TT: Geologic Technician: [facility] [email or web address] Radiology Study observation (narrative) [facility] OB BPP W NON-STRESS Ordered By: Radiologist Radiology on 01-03-2025 [facility] [employer] Work Phone: US OB FOLLOW UP TRANSABDOMIN AL APPROACHon 12-28-2024 US OB FOLLOW UP TRANSABDOMINAL APPROACH EXAM: US OB FOLLOW UP TRANSABDOMINAL APPROACH [...] II, MD, PHD at 29-Dec-2024 12:17:39 PM [facility] Normal Not Available Comment on above: Order Comment: US OB SCAN FOR GROWTH Estimated Date of Delivery: 03/03/25 Gestational Age as of 12/06/2024: 27w4d Urinalysis macro (dipstick) panel (U)on 12-28-2024 Bilirubin, UA Negative Negative - 4(70) +++ mg/dL [facility] Blood, UA Negative Negative - 50 Sam/mcL [facility] Clarity, UA Clear [facility] Healthhi re Color, UA Yellow [facility] Glucose, UA Negative Negative - 1999(110) ++++ mg/dL [facility] Interpretation and review of laboratory results Abnormal [facility] Healthca re Ketones, UA Negative Negative - 160(16) ++++ mg/dL [facility] Leukocytes, UA Positive Negative - 500+++ Supa/mcL [facility] Comment on above: small Nitrite, UA Negative Negative - Positive [facility] pH, UA 7 5 - 9 [facility] e Protein, UA Positive Negative - 1999(20) ++++ mg/dL [facility] Comment on above: 30mg/dL Spec Grav, UA 1.015 1 - 1.03 [facility] Urobilinogen, UA 0.2 0.2 - 12 mg/dL [facility] ALL CBC WITH AUTO DIFFon BASOPHILS ABSOLUTE AUTO 0 [facility] Basophils/100 WBC (Bld) 0.2 % 0.2 - 2.0 % [facility] Eosinophils/100 WBC (Bld) 0.4 % Low 0.9 - 7.0 % [facility] Erythrocyte distribution width (RBC) [Ratio] 12.7 % 11.0 - 15.0 % [facility] Hematocrit (Bld) [Volume fraction] 34 % Low 36.0 - 48.0 % [facility] Hemoglobin (Bld) [Mass/Vol] 11.5 g/dL Low 12.0 - 16.0 g/dL [facility] IMMATURE GRANULOCYTES ABS AUTO 0.06 High [facility] Immature granulocytes/100 WBC (Bld) 0.5 % 0.0 - 0.5 % [facility] Interpretation and review of laboratory results Abnormal [facility] LYMPHOCYTES ABSOLUTE AUTO 2.5 [facility] Healthcare Lymphocytes/100 WBC (Bld) 19.6 % Low 20.5 - 60.0 % [facility] MCH (RBC) [Entitic mass] 28 pg 26.7 - 34.0 pg [facility] (RBC) [Mass/Vol] 33.8 g/dL 29.9 - 35.2 g/dL [facility] MCV (RBC) [Entitic vol] 82.7 fL 81.0 - 99.0 fL [facility] Healthcare MONOCYTES ABSOLUTE AUTO 0.8 [facility] Monocytes/100 WBC (Bld) 6.5 % 1.7 - 12.0 % [facility] NEUTROPHILS ABSOLUTE AUTO 9.3 High [facility] Healthcare Neutrophils/100 WBC (Bld) 72.8 % 43.0 - 75.0 % [facility] Platelet mean volume (Bld) [Entitic vol] 9.5 fL 9.5 - 13.5 fL [facility] EO # 0.1 [facility] PLT 306 [facility] RBC 4.11 Low [facility] WBC 12.7 High [facility] UA (CLEAN/CATCH) PEST MANAGEMENT SUPERVISOR/TARSHA RO IF IND.on 12-15-2024 BILIRUBIN URINE Negative NEGATIVE [facility] BLOOD URINE Negative NEGATIVE [facility] Clarity (U) CLEAR CLEAR [facility] Color (U) LT. YELLOW YELLOW [facility] Healthcar e GLUCOSE URINE UA Negative NEGATIVE mg/dL [facility] Interpretation and review of laboratory results Abnormal [facility] Healthca re Ketones Ql (U) Negative NEGATIVE mg/dL [facility] Leukocyte esterase Test strip Ql (U) LARGE Abnormal NEGATIVE [facility] Health[facility] e NITRITE URINE Negative NEGATIVE [facility] care pH (U) 7.0 [pH] 5.0 - 9.0 [facility] e PROTEIN URINE Negative NEG/TRACE mg/dL [facility] SPECIFIC GRAVITY URINE <=1.005 Abnormal 1.005 - 1.025 [facility] URINE MICROSCOPIC INDICATED YES [facility] UROBILINOGEN URINE 0.2 EU/dL 0.2 - 1.0 EU/dL [facility] Healthcar e Urinalysis macro (dipstick) panel (U)on 12-06-2024 Bilirubin, UA Negative Negative - 4(70) +++ mg/dL [facility] Blood, UA Negative Negative - 50 Sam/mcL [facility] Clarity, UA Clear [facility] Healthca re Color, UA Yellow [facility] Healthcar e Glucose, UA Negative Negative - 1999(110) ++++ mg/dL [facility] Interpretation and review of laboratory results Abnormal [facility] Healthca re Ketones, UA Positive Negative - 160(16) ++++ mg/dL [facility] Comment on above: trace Leukocytes, UA Trace Negative - 500+++ Supa/mcL [facility] Nitrite, UA Negative Negative - Positive [facility] pH, UA 5.5 5 - 9 [facility] Healthcar e Protein, UA Negative Negative - 1999(20) ++++ mg/dL [facility] Spec Grav, UA 1.03 1 - 1.03 [facility] Urobilinogen, UA 0.2 0.2 - 12 mg/dL [facility] e ALL CBC WITH AUTO DIFFon BASOPHILS ABSOLUTE AUTO 0 [facility] Basophils/100 WBC (Bld) 0.2 % 0.2 - 2.0 % [facility] Eosinophils/100 WBC (Bld) 0.3 % Low 0.9 - 7.0 % [facility] Erythrocyte distribution width (RBC) [Ratio] 12.8 % 11.0 - 15.0 % [facility] Hematocrit (Bld) [Volume fraction] 34 % Low 36.0 - 48.0 % [facility] e Hemoglobin (Bld) [Mass/Vol] 11.2 g/dL Low 12.0 - 16.0 g/dL [facility] IMMATURE GRANULOCYTES ABS AUTO 0.05 High [facility] Immature granulocytes/100 WBC (Bld) 0.4 % 0.0 - 0.5 % [facility] Interpretation and review of laboratory results Abnormal [facility] LYMPHOCYTES ABSOLUTE AUTO 2.1 [facility] Lymphocytes/100 WBC (Bld) 17.3 % Low 20.5 - 60.0 % [facility] MCH (RBC) [Entitic mass] 27.7 pg 26.7 - 34.0 pg [facility] MCHC (RBC) [Mass/Vol] 32.9 g/dL 29.9 - 35.2 g/dL [facility] MCV (RBC) [Entitic vol] 84 fL 81.0 - 99.0 fL [facility] MONOCYTES ABSOLUTE AUTO 0.8 [facility] Monocytes/100 WBC (Bld) 6.6 % 1.7 - 12.0 % [facility] NEUTROPHILS ABSOLUTE AUTO 8.9 High [facility] Neutrophils/100 WBC (Bld) 75.2 % High 43.0 - 75.0 % [facility] Platelet mean volume (Bld) [Entitic vol] 9.1 fL Low 9.5 - 13.5 fL [facility] TBH EO # 0 [facility] Healthcar e TBH PLT 281 [facility] Healthcar e TBH RBC 4.05 Low [facility] Healthcar e TBH WBC 11.8 High [facility] Healthcar e [facility] Healthcar e US OB LIMITED 1+ FETUSESon [...] II, MD, PHD at 17-Nov-2024 06:24:10 AM [facility] Normal Not Available Comment on above: Order Comment: US OB INCOMPLETE ANATOMY Estimated Date of Delivery: 03/03/25 Gestational Age as of 11/01/2024: 22w4d Urinalysis macro (dipstick) panel (U)on 11-15-2024 Bilirubin, UA Negative Negative - 4(70) +++ mg/dL [facility] Healthcare Blood, UA Negative Negative - 50 Sam/mcL [facility] Clarity, UA Clear [facility] Color, UA Yellow [facility] Glucose, UA Negative Negative - 1999(110) ++++ mg/dL [facility] Interpretation and review of laboratory results Abnormal [facility] Ketones, UA Negative Negative - 160(16) ++++ mg/dL [facility] Healthcare Leukocytes, UA Trace Negative - 500+++ Supa/mcL [facility] Healthcare Nitrite, UA Negative Negative - Positive [facility] Healthcare pH, UA 6.5 5 - 9 [facility] Protein, UA Trace Negative - 1999(20) ++++ mg/dL [facility] Healthcare Spec Grav, UA 1.02 1 - 1.03 [facility] Urobilinogen, UA 0.2 0.2 - 12 mg/dL [facility] Urinalysis macro (dipstick) panel (U)on 10-18-2024 Bilirubin, UA Negative Negative - 4(70) +++ mg/dL [facility] Healthcare Blood, UA Negative Negative - 50 Sam/mcL [facility] Clarity, UA Clear [facility] Color, UA Yellow [facility] Glucose, UA Negative Negative - 1999(110) ++++ mg/dL [facility] Interpretation and review of laboratory results Normal [facility] Ketones, UA Negative Negative - 160(16) ++++ mg/dL [facility] Leukocytes, UA Negative Negative - 500+++ Supa/mcL [facility] Healthcare Nitrite, UA Negative Negative - Positive [facility] pH, UA 6 5 - 9 [facility] Protein, UA Negative Negative - 1999(20) ++++ mg/dL [facility] Spec Grav, UA 1.03 1 - 1.03 [facility] Urobilinogen, UA 0.2 0.2 - 12 mg/dL [facility] RECURRENT VAGINITIS (HTRX)on 09-23-2024 ATOPOBIUM VAGINAE 21.837 Abnormal [facility] althcare ATOPOBIUM VAGINAE Detected Abnormal [facility] BVAB 2,3 (BACTERIAL VAGINOSIS ASSOCIATED BACTERIA 2, 3); MOBILUNCUS SPP 14.391 Abnormal [facility] Healthcare BVAB 2,3 (BACTERIAL VAGINOSIS ASSOCIATED BACTERIA 2, 3); MOBILUNCUS SPP Detected Abnormal [facility] WILBERT ALBICANS, PARAPSILOSIS, TROPICALIS 0 [facility] WILBERT ALBICANS, PARAPSILOSIS, TROPICALIS Not detected [facility] Healthcare WILBERT GLABRATA 0 [facility] Hea lthcare WILBERT GLABRATA Not detected [facility]USEI [facility] WILBERT KRUSEI Not detected [facility] CHLAMYDIA TRACHOMATIS 0 [facility] CHLAMYDIA TRACHOMATIS Not detected [facility] ERMB, C; MEFA 22.056 Abnormal [facility] care ERMB, C; MEFA Detected Abnormal [facility] care GARDNERELLA VAGINALIS 27.529 Abnormal [facility] GARDNERELLA VAGINALIS Detected Abnormal [facility] Interpretation and review of laboratory results Abnormal [facility] Healthhi re MEGASPHAERA (TYPES 1, 2) 15.923 Abnormal [facility] MEGASPHAERA (TYPES 1, 2) Detected Abnormal [facility] MYCOPLASMA GENITALIUM 0 [facility] MYCOPLASMA GENITALIUM Not detected [facility] NEISSERIA GONORRHOEAE 0 [facility] NEISSERIA GONORRHOEAE Not detected [facility] TET B, TET M 16.766 Abnormal [facility] Healthc are TET B, TET M Detected Abnormal [facility] are TRICHOMONAS VAGINALIS 0 [facility] TRICHOMONAS VAGINALIS Not detected [facility] Health[facility] e GLUCOSE 1 HOURon 09-22-2024 Glucose [Mass/Vol] 114 mg/dL NINF - 13 0 mg/dL [facility] Healthcar e US OB 14+ WEEKS ANATOMY [...] II, MD, PHD at 19-Oct-2024 09:01:31 AM [facility] Normal Not Available Comment on above: Order Comment: US OB ANATOMY SINGLE W US OB CERVICAL LENGTH Estimated Date of Delivery: 03/03/25 Gestational Age as of 09/21/2024: 16w5d Urinalysis macro (dipstick) panel (U)Ordered By: Vicky Rodríguez on 09-21-2024 Bilirubin, UA Negative Negative - 4(70) +++ mg/dL [facility] Blood, UA Negative Negative - 50 Sam/mcL [facility] Clarity, UA Clear [facility] Healthca re Color, UA Yellow [facility] Healthcar e Glucose, UA Negative Negative - 1999(110) ++++ mg/dL [facility] Interpretation and review of laboratory results Normal [facility] Ketones, UA Negative Negative - 160(16) ++++ mg/dL [facility] Leukocytes, UA Negative Negative - 500+++ Supa/mcL [facility] Nitrite, UA Negative Negative - Positive [facility] pH, UA 7.5 5 - 9 [facility] Healthcar e Protein, UA Negative Negative - 1999(20) ++++ mg/dL [facility] Spec Grav, UA 1.02 1 - 1.03 [facility] Urobilinogen, UA 0.2 0.2 - 12 mg/dL [facility] e Urinalysis macro (dipstick) panel (U)on 08-17-2024 Bilirubin, UA Negative Negative - 4(70) +++ mg/dL [facility] Blood, UA Negative Negative - 50 Sam/mcL [facility] Clarity, UA Clear [facility] Healthca re Color, UA Yellow [facility] Glucose, UA Negative Negative - 1999(110) ++++ mg/dL [facility] Interpretation and review of laboratory results Abnormal [facility] Ketones, UA Negative Negative - 160(16) ++++ mg/dL [facility] Leukocytes, UA Positive Negative - 500+++ Supa/mcL [facility] Comment on above: small Nitrite, UA Negative Negative - Positive [facility] pH, UA 6 5 - 9 [facility] Healthcar e Protein, UA Negative Negative - 1999(20) ++++ mg/dL [facility] Spec Grav, UA 1.03 1 - 1.03 [facility] Urobilinogen, UA 0.2 0.2 - 12 mg/dL [facility] Health[facility] e MLR HEMOGLOBIN A1Con 1228-2 024 Glucose [Mass/Vol] 111 mg/dL [facility] ealthcare HbA1c (Bld) [Mass fraction] 5.5 % 4.5 - 6.2 % [facility] Comment on above: ADA RECOMMENDED LIMI T 4.0 - 6.0 ADA THERAPEUTIC TARGET < 7.0 ACTION SUGGESTED > 7.0 [facility] Healthcar e Urine Cultureon 08-05-2024 Bacteria identified Cx Nom (U) <9,000 colonies/ml mixed bacterial skin contaminants 2 Days PERFORMED BY: [address] [address] PATHOLOGIST PHOTOGRAPHIC INTELLIGENCE OFFICER ELICEO SPENCER M.D. Normal [facility] Comment on above: Performed By: #### C UU #### [place] [id number] [facility] HCG ( test) Ql (U)o n 07-18-2024 Interpretation and review of laboratory results Abnormal [facility] Preg Test, Ur Positive Negative [facility] Health care [facility] Urinalysis macro (dipstick) panel (U)on 07-18-2024 Bilirubin, UA Negative Negative - 4(70) +++ mg/dL [facility] Blood, UA Negative Negative - 50 Sam/mcL [facility] Clarity, UA Clear [facility] HealthYupiCall re Color, UA Yellow [facility] HealthOnRamp Digital e Glucose, UA Negative Negative - 1999(110) ++++ mg/dL [facility] Interpretation and review of laboratory results Normal [facility] EVRYTHNGhi re Ketones, UA Negative Negative - 160(16) ++++ mg/dL [facility] Leukocytes, UA Negative Negative - 500+++ Uspa/mcL [facility] Nitrite, UA Negative Negative - Positive [facility] pH, UA 6.5 5 - 9 [facility] Healthcar e Protein, UA Negative Negative - 1999(20) ++++ mg/dL [facility] Spec Grav, UA 1.02 1 - 1.03 [facility] Urobilinogen, UA 0.2 0.2 - 12 mg/dL [facility] PREG QUANT HCGon 024 HCG QUANTITATIVE 203 mIU/mL [facility] Comment on above: 5-50 0.2-1 WEEK 50-500 1-2 WEEKS 100-5,000 2-3 WEEKS 500-10,000 3-4 WEEKS 1,000-50,000 4-5 WEEKS 10,000-100,000 5-6 WEEKS 15,000-200,000 6-8 WEEKS 10,000-100,000 2-3 MONTHS [facility] Quick Strepon 09-17-2023 S. pyogenes Org specific cx Ql (Throat) positve Soneter Other Quick Strep Soneter Other Test, Urineon 08-11 Beta HCG ( test) Ql (U) Negative [employer] [facility] [employer] Other Capillary Glucose POCon Glucose [Mass/Vol] 94 mg/dL Normal 55-99 [facility] Comment on above: Result Comment: Loretta mcneal RN/ Performed By: #### [id number] #### [facility] [address] [place] [address] Consent for Treatmenton Consent for Treatment [id number] 0TIFF Normal [facility] Discharge Instructionson Discharge Instructions [id number] 0TIFF Normal [facility] ED Clinical Summaryon 2022 ED Clinical Summary [address] [address] ED Clinical Summary Person Information Name: [facility] Age: 17 Years : 2005 Sex: Female Language: Romanian PCP: Hazel Grady MD Marital Status: Single [...] 07/14/2023 03:42:20 07/14/2023 03:42:20 07/14/2023 03:42:20 ADDRESS: [address] [place] [address] DR GERMAN Morena [facility] [id number] PHYS DOC NOTES: MEDICAL INFORMATION: Prescriptions Given: New Medications [id number], [address], [place] [id number], [phone] azithromycin (azithromycin 250 mg Tab) 1 Tablets By Mouth every day for 4 Days. Refills: 0. PATIENT EDUCATION INFORMATION: Instructions: Viral Illness, Adult; Otitis Media, Adult Follow up: With: Address: When: Hazel Grady [address] [place], [place] [id number] Business (2) In 7 days 07/21/2023 DIAGNOSIS: AOM (acute otitis media); Viral illness Normal [facility] ED Note-Physicianon 07-14-20 ED Note-Physician Basic Information [...] and Complexity of Problems Differential Diagnosis: [] [facility] Data External documents reviewed: N/A My [...] day(s), # 4 tab(s), Refills(s) 0, Pharmacy: [id number], 175, cm, 07/13/23 23:42:00 EST, Height/Length Dosing, 121.7, kg, 07/13/23 23:42:00 EST, Weight Dosing Capillary Glucose POC Influenza A&B Ag Rapid COVID Antigen ([facility]) Resp.syn.virus (Rsv) XR Chest Single View Disposition Plan Discharge Prescription List Prescriptions azithromycin 250 mg Tab, 250 mg= 1 tab(s), Oral, Daily Follow-up With When Contact Information Hazel Grady In 7 days 07/21/2023 EST [address] [place] [address] [facility] (2) Additional Instructions: Patient Education [...] 94 mg/dL (07/14/23 02:00:00) POC Device SN: [id number] (07/14/23 02:00:00) POC User ID: [id number] (07/14/23 02:00:00) POC Username: POC Username (07/14/23 [...] By: Dom Sarmiento DO 07/14/2023 01:56:22 Normal [facility] Comment on above: Result Comment: Elec tronically [...] Follow these instructions at home: ? Take aqhk-hvt-boxduoq and prescription medicines only as told by [...] provider. Document Revised: 11/03/2021 Document Reviewed: 11/03/2021 [employer] Patient Education ? 2022 [employer] Infectious Disease Viral Illness, Adult Viruses [...] cause illne (more content not included)... Normal [facility] ED Patient Summaryon 023 ED Patient Summary [address] [address] Patient Discharge Instructions Person Information Name: FRANCES DOE Age: 17 Years Arrival Date: 07/13/2023 23:32:13 Discharge Diagnosis: AOM (acute otitis media); Viral illness Primary Care Physician: Hazel Grady MD Provider Information Primary Provider: Dom Sarmiento DO [employer] Cleaner Inspector:None The exam and treatment you received in the Emergency Department were for an urgent problem and are not intended as complete care. It is important that you follow up with a doctor, nurse practitioner, or physician?s executive staff assistant for ongoing care. If your symptoms [...] Follow-up Instructions: With: Address: When: Hazel Grady [facility] [address] [facility] (2) In 7 days 07/21/2023 In the event that this physician does not participate in your insurance network, please consult with your insurance company to find a nearby participating provider. Patient Education Materials: Viral Illness, Adult; Otitis Media, Adult A MESSAGE TO ALL PATIENTS REGARDING OPIOIDS PRESCRIPTION OPIOIDS: WHAT YOU NEED TO KNOW Prescription opioids can be used to help relieve gbvrkndb-qi-jqfcaz pain and are often prescribed following a [...] be struggling with addiction, tell your health rn care transition and ask for guidance or call [facility]?S National Helpline at 9-263-430-RSAJ. (more content not included)... Normal [facility] Influenza A&B Agon 3 Influenzae A Ag Negative Normal Negative [facility] Comment on above: Performed By: #### 2 [id number] #### [facility] [address] [place] [address] Influenzae B Ag Negative Normal Negative [facility] Comment on above: Result Comment: Test sensitivity and specificity vary for age group, specimen type, antigen types, and prevalence of disease. Test results must be evaluated in conjunction with other clinical data available to the physician. Individuals who received nasally administered Influenza A vaccine may have positive test results up to 3 days after vaccination. Performed By: #### 2 [id number] #### [facility] [address] [place] [address] Prescriptions/Work Noteson 1 09-14-2022 Prescriptions/Work Notes [id number] 0TIFF Normal [facility] Rapid COVID Antigen ([facility])on 07-14-2023 Rapid COV Int NEG Ctl Pass Normal [facility] Comment on above: Performed By: #### 2 [id number] #### [facility] [address] [place] [address] Rapid COV Int POS Ctl Pass Normal [facility] Comment on above: Performed By: #### 2 [id number] #### [facility] [address] [place] [address] SARS-CoV+SARS-CoV-2 (COVID-19) Ag IA.rapid Ql (Resp) Not detected Normal Not Detected [facility] Comment on above: Result Comment: The Tracky? System for Rapid Detection of SARS-CoV-2 is [...] or revoked sooner. Performed By: #### 2 [id number] #### [facility] [address] [place] [id number] Resp.syn.virus (Rsv)on 07-14 RSV Ag IA.rapid Ql (Nph) Negative Normal Negative [facility] Comment on above: Performed By: #### 2 [id number], [id number], [id number] #### [facility] [address] [place] [address] XR Chest Single Viewon 07-14 XR Chest [...] mGy = na DAP = na Normal [facility]son 12-24-2022 Forms [id number] 0CD:127 Normal [facility] Vital Signs Date Time Vital Sign Value Performing Clinician Facility 12-28-2024 10:20-0400 Body weight 139.82 kg Yogesh Ally DO Work Phone: [facility] 12-28-2024 10:20-0400 Diastolic blood pressure 82 mm[Hg] Yogesh Ally DO Work Phone: [facility] 12-28-2024 10:20-0400 Systolic blood pressure 126 mm[Hg] Yogesh Ally DO Work Phone: [facility] 12-06-2024 13:53-0400 Body weight 139.71 kg Lynette Gunter PHYSICIAN RELATIONS REPRESENTATIVE Work Phone: [facility] 12-06-2024 13:53-0400 Diastolic blood pressure 70 mm[Hg] Lynette Gunter PHYSICIAN RELATIONS REPRESENTATIVE Work Phone: [facility] 12-06-2024 13:53-0400 Systolic blood pressure 114 mm[Hg] Lynette Gunter PHYSICIAN RELATIONS REPRESENTATIVE Work Phone: [facility] 11-15-2024 10:36-0400 Body weight 139.16 kg Yogesh Ally DO Work Phone: [facility] 11-15-2024 10:36-0400 Diastolic blood pressure 78 mm[Hg] Yogesh Ally DO Work Phone: [facility] 11-15-2024 10:36-0400 Systolic blood pressure 130 mm[Hg] Yogesh Ally DO Work Phone: [facility] 10-18-2024 14:37-0400 Body weight 136.99 kg Maryanne Mars Hill PA Work Phone: [facility] 10-18-2024 14:37-0400 Diastolic blood pressure 78 mm[Hg] Maryanne Miesha PA Work Phone: [facility] 10-18-2024 14:37-0400 Systolic blood pressure 130 mm[Hg] Maryanne [place] PA Work Phone: [facility] 09-21-2024 16:43-0500 Body weight 136.9 kg Maryanne [place] PA Work Phone: [facility] 09-21-2024 16:43-0500 Diastolic blood pressure 76 mm[Hg] Maryanne [place] PA Work Phone: [facility] 09-21-2024 16:43-0500 Systolic blood pressure 118 mm[Hg] Maryanne [place] PA Work Phone: [facility] 08-17-2024 11:52-0500 Body weight 138.8 kg Yogesh Ally DO Work Phone: [facility] 08-17-2024 11:52-0500 Diastolic blood pressure 78 mm[Hg] Yogesh Ally DO Work Phone: [facility] 08-17-2024 11:52-0500 Systolic blood pressure 122 mm[Hg] Yogesh Ally DO Work Phone: [facility] 07-18-2024 11:15-0500 Body weight 139.71 kg [facility] Nurse [facility] 07-18-2024 11:15-0500 Diastolic blood pressure 74 mm[Hg] [facility] 07-18-2024 11:15-0500 Systolic blood pressure 118 mm[Hg] [facility] Nurse [facility] 09-17-2023 09:35-0500 Body height 175.26 cm Tiesha Flood Other [facility] Other 09-17-2023 09:35-0500 Body mass index (BMI) [Ratio] 40.16 kg/m2 Tiesha Flood Other [facility] Other 09-17-2023 09:35-0500 Body temperature 99.2 [degF] Tiesha Flood Other [facility] Other 09-17-2023 09:35-0500 Body weight 123.38 kg Tiesha Flood Other [facility] Other 09-17-2023 09:35-0500 Respiratory rate 18 /min Tiesha Flood Other [facility] Other 09-17-2023 09:35-0500 SaO2% (BldA) [Mass fraction] 97 % Tiesha Flood Other [facility] Other 09-02-2023 09:30-0500 Body height 175.26 cm Sheree Cheung Other [facility] Other 09-02-2023 09:30-0500 Body mass index (BMI) [Ratio] 40.21 kg/m2 Sheree Cheung Other [facility] Other 09-02-2023 09:30-0500 Body weight 123.52 kg Sheree Cheung Other [facility] Other 09-02-2023 09:30-0500 Diastolic blood pressure 78 mm[Hg] Sheree Jonatan Other [facility] Other 09-02-2023 09:30-0500 Respiratory rate 18 /min Sheree Jonatan Other [facility] Other 09-02-2023 09:30-0500 SaO2% (BldA) [Mass fraction] 97 % Sheree Jonatan Other [facility] Other 09-02-2023 09:30-0500 Systolic blood pressure 120 mm[Hg] Sheree Jonatan Other [facility] Other 07-27-2023 09:30-0500 Body height 175.26 cm Sheree Jonatan Other [facility] Other 07-27-2023 09:30-0500 Body mass index (BMI) [Ratio] 40.02 kg/m2 Sheree Jonatan Other [facility] Other 07-27-2023 09:30-0500 Body weight 122.93 kg Sheree Jonatan Other [facility] Other 07-27-2023 09:30-0500 Diastolic blood pressure 76 mm[Hg] Sheree Jonatan Other [facility] Other 07-27-2023 09:30-0500 Respiratory rate 16 /min Sheree Cheung Other [facility] Other 07-27-2023 09:30-0500 SaO2% (BldA) [Mass fraction] 98 % Sheree Cheung Other [facility] Other 07-27-2023 09:30-0500 Systolic blood pressure 120 mm[Hg] Sheree Cheung Other [facility] Other 01-21-2022 15:35-0400 Body height 175.26 cm Almaz Huerta Other [facility] Other 01-21-2022 15:35-0400 Body mass index (BMI) [Ratio] 30.86 kg/m2 Almaz Benavidezmond Other [facility] Other 01-21-2022 15:35-0400 Body temperature 97.3 [degF] Almaz Benavidezmond Other [facility] Other 01-21-2022 15:35-0400 Body weight 94.8 kg Almaz Deanna Other [facility] Other 01-21-2022 15:35-0400 Diastolic blood pressure 73 mm[Hg] Almaz Deanna Other [facility] Other 01-21-2022 15:35-0400 Respiratory rate 16 /min Almaz Deanna Other [facility] Other 01-21-2022 15:35-0400 SaO2% (BldA) [Mass fraction] 97 % Almaz Deanna Other [facility] Other 01-21-2022 15:35-0400 Systolic blood pressure 133 mm[Hg] Almaz Deanna Other [facility] Other Encounters Encounter Date Encounter Type Care Provider Facility Start: 01-03-2025 End: 01-03-2025 Clinisync Result Encounter Yogesh Ally DO Work Phone: [facility] Unsolicited Start: 01-03-2025 End: 01-03-2025 Clinisync Result Encounter Yogesh Ally DO Work Phone: [facility] Unsolicited Start: 12-28-2024 End: 12-28-2024 flow sheet Yogesh Ally DO Work Phone: [facility] Comment on above: 30 weeks gestation o f ; Third trimester ; Oligohydramnios in third trimester, fetus 1 of multiple gestation Start: 12-28-2024 End: 12-28-2024 ambulatory YOGESH ALLY Not Available Start: 12-16-2024 End: 12-16-2024 Clinisync Result Encounter [...] 12-06-2024 End: 12-06-2024 Bamboo flowsheet Lynette Lyric PHYSICIAN RELATIONS REPRESENTATIVE Work Phone: [facility] Start: 12-06-2024 End: 12-06-2024 Bamboo flowsheet Lynette Lyric PHYSICIAN RELATIONS REPRESENTATIVE Work Phone: [facility] Start: 12-06-2024 End: 12-06-2024 flow sheet Lynette Lyric PHYSICIAN RELATIONS REPRESENTATIVE Work Phone: [facility] Comment on above: size inconsist ent with dates (Primary Dx); 27 weeks gestation of ; Second trimester Start: 12-06-2024 End: 12-06-2024 ambulatory LYNETTE MASTERSLY Not Available Start: 11-30-2024 End: 11-30-2024 Clinisync Result Encounter Yogesh Canales DO Work Phone: [facility] Unsolicited Start: 11-30-2024 End: 11-30-2024 Clinisync Result Encounter Yogesh Canales DO Work Phone: [facility] Unsolicited Start: 11-15-2024 End: 11-15-2024 flow sheet Yogesh Canales DO Work Phone: [facility] Comment on above: 24 weeks gestation o f ; Second trimester ; Diabetes mellitus screening Start: 11-15-2024 End: 11-15-2024 ambulatory YOGESH CANALES Not Available Start: 10-18-2024 End: 10-18-2024 flow [...] Phone: [facility] Start: 09-21-2024 End: 02-15-2025 Bamboo flowsheet Maryanne FOWLER Work Phone: [facility] [...] Start: 08-05-2024 End: 08-05-2024 ambulatory Sheree Cheung Facility:[facility] Start: 07-18-2024 End: 07-18-2024 ambulatory [facility] Ally Nurse [facility] Comment on above: GA: 7w3d Start: 06-26-2024 End: 06-26-2024 Clinisync Result Encounter Maryanne FOWLER Work Phone: [facility] Unsolicited Start: 06-26-2024 End: 06-26-2024 Clinisync Result Encounter Maryanne FOWLER Work Phone: [facility] Unsolicited Start: 09-17-2023 End: 09-17-2023 ambulatory Tiesha Flood Other [facility] Other Start: 09-17-2023 Office outpatient vi sit 15 minutes Tiesha Flood [facility] [place] Start: 09-02-2023 End: 09-02-2023 ambulatory Sheree Jontaan Other [facility] Other Start: 09-02-2023 Office outpatient vi sit 25 minutes Sheree Cheung [facility] Start: 07-27-2023 End: 07-27-2023 ambulatory Sheree Jonatan Other [facility] Other Start: 07-27-2023 Encounter for genera l adult medical examination without abnormal findings Sheree Cheung [facility] [place] Start: 07-27-2023 Initial preventive medicine new pt age 18-39yrs Sheree Cheung [facility] Start: 07-14-2023 End: 07-14-2023 Emergency department patient visit Dom Sarmiento Facility:[facility] [place] [place] Start: 12-24-2022 ambulatory Dom Sarmiento Facility: [facility] Start: 04-06-2022 End: 04-06-2022 ambulatory HAZEL GRADY Facility: Start: 01-21-2022 (URG) Urgent Care Visit Almaz romero [facility] [place] Start: 01-21-2022 End: 01-21-2022 ambulatory Almaz Huerta Other [facility] Other Procedures Date Procedure Procedure Detail Performing Clinician Start: 01-03-2025 US OB BPP W NON-STRESS Yogesh Ally DO Work Phone: Start: 12-28-2024 Urnls dip stick/tabl et rgnt non-auto w/o micrscp Yogesh Ally DO Work Phone: Start: 12-16-2024 ALL CBC WITH AUTO DIFF Yogesh Ally DO Work Phone: Start: 12-15-2024 [facility] UA (CLEAN/CATCH) PEST MANAGEMENT SUPERVISOR/MICRO IF IND. Yogesh Ally DO Work Phone: Start: 12-06-2024 Urnls dip stick/tabl et rgnt non-auto w/o micrscp Lynette Lyric PHYSICIAN RELATIONS REPRESENTATIVE Work Phone: Start: 11-30-2024 ALL CBC WITH [...] Treatment Date Care Activity Detail Author Start: 01-11-2025 End: 01-11-2025 Patient encounter procedure 01/11/2025 1:30 PM EDT Routine [facility] [address] [place] [address] Maryanne Covarrubias PA [address] [place] [address] [facility] Start: 12-28-2024 End: 06-30-2025 US biophysical profile w non stress test US biophysical profile w non stress test Imaging Routine Oligohydramnios in third trimester, fetus 1 of multiple gestation Expected: 12/28/2024 (Approximate), Expires: 06/30/2025 [facility] Work Phone: Comment on above: Expected: 12/28/2024 (Approximate), Expires: 06/30/2025 Start: 12-28-2024 End: 12-28-2024 Patient encounter procedure 12/28/2024 9:50 AM EDT Routine [facility] [address] [place] [phone] Yogesh Canales DO [address] [place] [address] [facility] Start: 12-28-2024 End: 12-28-2024 Professional / ancillary services management 12/28/2024 9:00 AM EDT Ancillary Procedure [facility] [address] [place] [phone] [facility] Start: 12-06-2024 End: 04-07-2025 [...] PM EDT Routine [facility] [address] [place] [phone] Yogesh Canales DO [address] [place], [place] [id number] [facility] Start: 10-18-2024 End: 10-18-2024 Patient encounter procedure 10/18/2024 2:30 PM EDT Routine [facility] [address] [place] [phone] Maryanne Covarrubias PA [address] [place] [address] [place] [address] [facility] Start: 10-18-2024 End: 10-18-2024 Professional / ancillary services management 10/18/2024 1:00 PM EDT Ancillary Procedure [facility] [address] [place] [phone] [facility] Start: 09-21-2024 End: 09-21-2024 Patient encounter procedure 09/21/2024 3:20 PM EST Routine [facility] [address] [place] [phone] Maryanne Covarrubias, PA [address] [place], [place] [id number] Arrived [facility] Comment on above: Arrived Start: 09-21-2024 End: 11-19-2024 Alpha fetoprotein, maternal Alpha fetoprotein, maternal Lab Routine Screening, , for anatomic survey Expected: 09/21/2024 (Approximate), Expires: 11/19/2024 [facility] Comment on above: Expected: 09/21/2024 (Approximate), Expires: 11/19/2024 Start: 09-21-2024 End: 09-21-2025 Measurement of glucose 1 hour after glucose challenge for glucose tolerance test Glucose tolerance, 1 hour Lab Routine Diabetes mellitus screening Expected: 09/21/2024 (Approximate), Expires: 09/21/2025 [facility] Comment on above: Expected: 09/21/2024 (Approximate), Expires: 09/21/2025 Start: 09-21-2024 End: 09-21-2025 US for US OB 14+ weeks anatomy scan Imaging Routine Screening, , for anatomic survey Expected: 09/21/2024, Expires: 09/21/2025 [facility] Comment on above: Expected: 09/21/2024 , Expires: 09/21/2025 Start: 09-21-2024 End: 09-21-2024 Patient encounter procedure 09/21/2024 9:30 AM EST Routine [facility] [address] [place] [address] Maryanne Covarrubias PA [address] [place] [address] [facility] Start: 08-17-2024 End: 08-17-2024 Patient encounter procedure [facility] Comment on above: Arrived Start: 07-18-2024 End: 07-18-2025 ABO/Rh ABO/Rh Lab Routine Missed menses , unspecified gestational age Expected: 07/18/2024 (Approximate), Expires: 07/18/2025 [facility] Comment on above: Expected: 07/18/2024 (Approximate), [...] first trimester Expected: 07/18/2024 (Approximate), Expires: 07/18/2025 [facility] Comment on above: Expected: 07/18/2024 (Approximate), Expires: 07/18/2025 Start: 07-18-2024 End: 07-18-2025 US Pelvis transvaginal US OB transvaginal Imaging Routine Missed menses Expected: 07/18/2024 (Approximate), Expires: 07/18/2025 [facility] Comment on above: Expected: 07/18/2024 (Approximate), Expires: 07/18/2025 Start: 07-18-2024 End: 07-18-2024 ambulatory 07/18/2024 10:30 AM EST Initial [facility] [address] [place] [phone] [facility] Start: 07-18-2024 End: 07-18-2024 Professional / ancillary services management 07/18/2024 10:00 AM EST Ancillary Procedure [facility] [address] [place] [address] [facility] Bacteria identified in Urine by Culture Urine culture Microbiology Routine Missed menses Ordered: 07/18/2024 [facility] Comment on above: Ordered: 07/18/2024 CBC W Auto Differential panel - Blood CBC and differential Lab Routine Missed menses , unspecified gestational age Ordered: 07/18/2024 [facility] Comment on above: Ordered: 07/18/2024 CHLAMYDIA TRACHOMATI S (GENITO/STI) CHLAMYDIA TRACHOMATIS (GENITO/STI) Lab Routine STD exposure Vaginal discharge Ordered: 09/21/2024 [facility] Comment on above: Ordered: 09/21/2024 Hemoglobin A1c/Hemoglobin.total in Blood Hemoglobin A1c Lab Routine Missed menses , unspecified gestational age Ordered: 07/18/2024 [facility] Comment on above: Ordered: 07/18/2024 Hepatitis B virus surface Ag [Presence] in Serum or Plasma by Immunoassay Hepatitis B surface antigen Lab Routine Missed menses , unspecified gestational age Ordered: 07/18/2024 [facility] Comment on above: Ordered: 07/18/2024 Hepatitis C virus Ab [Presence] in Serum or Plasma by Immunoassay Hepatitis C antibody Lab Routine Missed menses , unspecified gestational age Ordered: 07/18/2024 [facility] Comment on above: Ordered: 07/18/2024 HIV-1/HIV-2 antigen/antibody combination immunoassay HIV-1 and HIV-2 antibodies Lab Routine Missed menses , unspecified gestational age Ordered: 07/18/2024 [facility] Comment on above: Ordered: 07/18/2024 Neisseria gonorrhoea e DNA [Presence] in Unspecified specimen by ISAURO with probe detection Neisseria gonorrhea DNA probe, direct Lab Routine STD exposure Vaginal discharge Ordered: 09/21/2024 [facility] Comment on above: Ordered: 09/21/2024 Reagin Ab [Presence] in Serum by RPR RPR Lab Routine Missed menses , unspecified gestational age Ordered: 07/18/2024 [facility] Comment on above: Ordered: 07/18/2024 Rubella antibody, IgG Rubella an tibody, IgG Lab Routine Missed menses , unspecified gestational age Ordered: 07/18/2024 [facility] Comment on above: Ordered: 07/18/2024 SURESWAB(R) ADVANCED VAGINITIS PLUS, TMA SURESWAB(R) ADVANCED VAGINITIS PLUS, TMA Pathology and Cytology Routine STD exposure Vaginal discharge Ordered: 09/21/2024 [facility] Work Phone: Comment on above: Ordered: 09/21/2024 Immunizations Immunization Date Immunization Notes Care Provider Chase sequeira 03-17-2021 Human Papillomavirus 9-valent vaccine Almaz Huerta Other [facility] Other 02-10-2021 Do not use COVID-19 Pfizer 2 dose Almaz Huerta Other [facility] Other 08-04-2016 Human Papillomavirus 9-valent vaccine Almaz Deanna Other [facility] Other 05-22-2016 Human Papillomavirus 9-valent vaccine Almaz Deanna Other [facility] Other 07-29-2015 hepatitis A vaccine, pediatric/adolescent dosage, 2 dose schedule Almaz Deanna Other [facility] Other 04-02-2007 hepatitis A vaccine, pediatric/adolescent dosage, 2 dose schedule Almaz Deanna Other [facility] Other 04-14-2005 diphtheria, tetanus toxoids and acellular pertussis vaccine, 5 pertussis antigens Almaz Deanna Other [facility] Other 10-09-2004 measles, mumps and rubella virus vaccine Almaz Deanna Other [facility] Other 04-21-2004 DTaP-hepatitis B and poliovirus vaccine Almaz Deanna Other [facility] Other 04-21-2004 haemophilus influenz ae type b vaccine, PRP-T conjugate Almaz Deanna Other [facility] Other 02-19-2004 DTaP-hepatitis B and poliovirus vaccine Almaz Deanna Other [facility] Other 02-19-2004 haemophilus influenz ae type b vaccine, PRP-T conjugate Almaz Deanna Other [facility] Other 2003 DTaP-hepatitis B and poliovirus vaccine Almaz Deanna Other [facility] Other 2003 haemophilus influenz ae type b vaccine, PRP-T conjugate Almaz Huerta Other [facility] Other 2003 hepatitis B vaccine, pediatric or pediatric/adolescent dosage Almaz Huerta Other [facility] Other Payers Date Payer Category Payer Self-pay 2021 Private Health Insurance 2003 Unknown [id number] 2.16.8 [id number] 2003 Unknown [id number] 2.16.84 [id number] 2003 Unknown [id number] 2.16.84 [id number] 2003 Unknown [id number] 2.16.84 [id number] 2003 Unknown [id number] 2.16.84 0.1.165732.3.579.2.9 2003 Unknown [id number] 2.16.84 0.1.715036.3.579.2.1259 2003 Unknown [id number] 2.16.84 0.1.777937.3.579.2.1259 2003 Unknown [id number] 2.16.84 0.1.282438.3.579.2.1259 2003 Unknown [id number] 2.16.84 0.1.969497.3.579.2.125 2003 Unknown [id number] 2.16.84 0.1.585406.3.579.2.1259 2003 Unknown [id number] 2.16.84 0.1.225449.3.579.2.1259 1959 Unknown [id number] 1959 Unknown [id number] 1959 Unknown [id number] 2.16.84 [id number] Unknown [id number] 2.16.8 [id number] Social History Date Type Detail Facility Unknown if ever smoked [facility] [employer] Other Sex Assigned At [facility] [employer] Other Tobacco smoking status TNIS Tobacco smoking consumption unknown [facility] Start: 2003 Sex assigned at Not on file [facility] Start: 06-10-2024 [facility] Clinical Notes 01-21-2022 to 12-28-2024 Vicky Rodríguez, NANCY - 12/28/2024 9:50 AM EDJade Gunter NP - 12/06/2024 1:20 PM Juan Carlos Vasquez LPN - 11/15/2024 10:50 AM JANETH Blanca - 10/18/2024 2:30 PM EDT Note Date & Type Note Facility 12-28-2024 History of Presen t illness Narrative Reason [...] nursing note reviewed. Exam conducted with a poll watcher present. Vitals: There is no height or [...] Yogesh Canales DO documented in this encounter [facility] 12-06-2024 History of Presen t illness Narrative [...] nursing note reviewed. Exam conducted with a poll watcher present. Vitals: There is no height or [...] Lynette Gunter NP documented in this encounter [facility] 11-15-2024 History of Presen t illness Narrative [...] nursing note reviewed. Exam conducted with a poll watcher present. Vitals: There is no height or [...] Yogesh Canales DO documented in this encounter [facility] 10-18-2024 History of Presen t illness Narrative [...] of: JANETH Ji documented in this encounter [facility] 09-21-2024 History of Presen t illness Narrative [...] obtained without difficulty and patient was given [facility] order to have obtained. Orders Placed This [...] of: JANETH Ji documented in this encounter [facility] 08-17-2024 History of Presen t illness Narrative [...] nursing note reviewed. Exam conducted with a poll watcher present. Vitals: There is no height or [...] undercooked meat, and stay away from [facility]. Patient has been consulted regarding any [...] Yogesh Canales DO documented in this encounter [facility] 07-18-2024 History of Presen t illness Narrative [...] undercooked meat, and stay away from [facility]. Patient has also been advised to [...] Jazmyne Oliveira MA documented in this encounter [facility] 09-17-2023 Evaluation note Encounter Date Diagnosis Assessment [...] understanding and is agreeable to treatment plan. [facility] Other 01-25-2024 Evaluation note* Encounter Date Diagnosis [...] and no personal patient information was compromised. [facility] Other 12-19-2023 Evaluation note* Encounter Date Diagnosis [...] (ICD-10 - F32.1) See above treatment plan. [facility] Other 06-15-2022 Evaluation note* Encounter Date Diagnosis Assessment Notes Treatment Notes Treatment Clinical Notes Jan, Pre-employment examination (ICD-10 - Z02.1) [facility] Other Evaluation note* Diagnosis Missed menses , [...] state, incidental [facility] Diagnosis 30 weeks gestation of Third trimester state, incidental Oligohydramnios in third trimester, fetus 1 of multiple gestation documented [facility] this [facility] Narrative - Reported* Type Description Date Medical History vertigo [employer] Other Reason for referral (narrative)* Reason Refer to [facility] or counseling for anxiety and depression Diagnosis 1 MATTHIAS (generalized anx iety disorder) (F41.1) Referral Organization [facility] Wick Referring Provider First Name Sheree Referring Provider Last Name Jonatan Referring Provider Specialty Nurse Bree grullon Referred Provider Specialty Psychiatry Referral Priority Routine [facility] [employer] Other Summary Purpose Family History No Family [...] and content) DATE CREATED AUTHOR 04/10/2022 [facility] DATE CREATED AUTHOR AUTHOR'S ORGANIZ ATION 08/13/2023 [facility] DATE CREATED AUTHOR AUTHOR'S ORGANIZ ATION 08/09/2024 [facility] DATE CREATED AUTHOR AUTHOR'S ORGANIZ ATION 01/03/2025 [facility] d[facility] Special[facility] EPIC Care Teams (unrecognized sec tion and content) Rn Mds Coordinator Relationship Specialty Start Date End Date Hazel Grady MD [address] [place], [place] [address] PCP - General Family Medicine 07/18/24 Rn Mds Coordinator Relationship Specialty Start Date End Date Hazel Grady MD [address] [place], [place] [address] PCP - General Family Medicine 07/18/24 Rn Mds Coordinator Relationship Specialty Start Date End Date Hazel Grady MD [address] [place] [address] PCP - General Family Medicine 07/18/24 Rn Mds Coordinator Relationship Specialty Start Date End Date Hazel Grady MD [address] [place] [address] PCP - [facility] 07/18/24 Rn Mds Coordinator Relationship Specialty Start Date End Date Hazel Grady MD [address] [place] [address] PCP - [facility] 07/18/24 Rn Mds Coordinator Relationship Specialty Start Date End Date Hazel Grady MD [address] [place] [address] PCP - [facility] 07/18/24 Rn Mds Coordinator Relationship Specialty Start Date End Date Hazel Grady MD [address] [place] [address] PCP - [facility] 07/18/24 Rn Mds Coordinator Relationship Specialty Start Date End Date Hazel Grady MD [address] [place] [address] PCP - [facility] 07/18/24 Rn Mds Coordinator Relationship Specialty Start Date End Date Hazel Grady MD [address] [place] [address] PCP - [facility] 07/18/24 Rn Mds Coordinator Relationship Specialty Start Date End Date Hazel Grady MD [address] [place] [address] PCP - [facility] 07/18/24 FOR RECORDS PERTAINING TO PATIENTS WHO [...] BE BASED ON THE PRIMARY CLINICAL RECORDS. [facility] [employer] [facility]. provides no warranty or guarantee of the accuracy or completeness of information in this document.
--- OUTSIDE RECORDS SUMMARY | 2025-01-06 10:01 | XMS_ITS | Clinical Summary ---
Author Organization [facility] tem Address [id number] [address] [place] [address] Care Team Providers Care Blunger Loader Name Role Phone Unavailable Primary Care Provider Unavailabl e Allergies Active Allergy Reactions Criticality Noted Date Comments Amoxicillin Rash Low 01/04/2025 Medications magnesium oxide (MAGOX) 400 mg tablet Take 1 tablet (400 mg total) by mouth in the morning. Active promethazine (PHENERGAN) 12.5 mg suppository Insert 1 suppository (12.5 mg total) into the rectum every 6 (six) hours as needed for nausea or vomiting. Active sertraline (ZOLOFT) 50 mg tablet Take 1 tablet (50 mg total) by mouth in the morning. Active Encounters Date Type Department Care Team Description 01/04/2025 Orders Only Maternal- Medicine at [facility] [address] [place] [address] Ref Prov, Not In System 01/04/2025 Abstract Maternal- Medicine at [facility] [address] [place] [address] Mike Lay MD from Last 3 Months Social History Tobacco Use Types Packs/Day Years Used Date Smoking Tobacco: Never Assessed Childcare Answer Date Recorded Childcare Unknown 01/18/2019 Employment Answer Date Recorded Employment Unknown 01/18/2019 Estimated Date of Delivery Comme nts Yes 03/03/2025 Based on Ultraso und Sex and Gender Information Value Date Recorded Sex Assigned at Not on file Legal Sex Female 12:01 PM EDT Gender Identity Not on file Sexual Orientation Not on file Plan of Treatment Upcoming Encounters Date Type Department Care Team (Late st Contact Info) Description 01/18/2025 8:15 AM EDT Appointment Maternal Medicine [place] [address] [place] [address] Health Maintenance Due Date Last Done Comments Depression Screening 2015 Tobacco Screening 2015 Adult BMI Screening 2021 DTaP,Tdap and Td Vaccines (1 - Tdap) 2022 Pap Smear 2024 Influenza Vaccine 04/09/2025 Medical Devices Not on file Procedures Procedure Name Priority Date/Time Associated Diagnosis Comments US PREG LMTD 1 OR MORE FETUS Routine 01/04/2025 10:58 AM EDT US PREG LMTD 1 OR MORE FETUS Routine 01/04/2025 10:56 AM EDT US PREG LMTD 1 OR MORE FETUS Routine 01/04/2025 10:55 AM EDT US PREG LMTD 1 OR MORE FETUS Routine 01/04/2025 10:54 AM EDT US PREG LMTD 1 OR MORE FETUS Routine 01/04/2025 10:51 AM EDT CBC (NO DIFF) Routine 11/30/2024 from Last 3 Months Results * Ultrasound limited 1 or more fetus (01/04/2025 10:58 AM EDT) Only the most recent of5 resultswithin the time period is included. Anatomical Region Laterality Modality OB-OYSTERMAN Ultrasound us Not In System Ref Prov IMG US ORDERABLES Final R esult * CBC without diff (11/30/2024) Hemoglobin 11.2 MANUALLY TRANSCRIBED RESULTS Hematocrit 34.0 MANUALLY TRANSCRIBED RESULTS Rbc Mcv (Fl) By Automated Count 84.0 MANUALLY TRANSCRIBED RESULTS Blood Venous blood / Unknown us Not In System Ref Prov LAB BLOOD ORDERABLES Jessica l Result MANUALLY TRANSCRIBED RESULTS from Last 3 Months Insurance [facility]
--- OUTSIDE RECORDS SUMMARY | 2025-01-06 10:01 | XMS_ITS | Encounter Summary ---
Author Organization [facility] [employer] [facility] tem Address [id number] [address] [place] [address] Care Team Providers Care E Marketing Specialist Name Role Phone Unavailable Primary Care Provider Unavailabl e Encounter Details Date Type Department Care Team (Late Contact Info) Description 01/04/2025 Abstract Maternal- Medicine at [facility] [address] [place] [phone] Mike Lay MD [address] [facility] [address] [place] [address] Social History Tobacco Use Types Packs/Day Years [...] 01/18/2025 8:15 AM EDT Appointment Maternal Medicine [address] [place] [address] documented as of this encounter Procedures Procedure Name Priority Date/Time Associated Diagnosis Comments CBC (NO DIFF) Routine 11/30/2024 RUBELLA IGG IMMUNE STATUS Routine 08/05/2024 SYPHILIS TOTAL(UNKNOWN SYPHILIS STATUS) Routine 08/05/2024 documented in this encounter Results * CBC without diff (11/30/2024) Hemoglobin 11.2 MANUALLY TRANSCRIBED RESULTS Hematocrit 34.0 MANUALLY TRANSCRIBED RESULTS Rbc Mcv (Fl) By Automated Count 84.0 MANUALLY TRANSCRIBED RESULTS Blood Venous blood / Unknown us Not In System Ref Prov LAB BLOOD ORDERABLES Jessica l Result MANUALLY TRANSCRIBED RESULTS * Rubella IGG immune status (08/05/2024) Rubella immune IgG immune MANUALLY TRANSCRIBED RESULTS Blood Venous blood / Unknown us Not In System Ref Prov LAB BLOOD ORDERABLES Jessica l Result Performing Organization Address City/[facility] Co de Phone Number MANUALLY TRANSCRIBED RESULTS * Syphilis Total (Unknown Syphilis Status) (08/05/2024) Syphilis non reactive MANUALL Y TRANSCRIBED RESULTS Blood Venous blood / Unknown us Not In System Ref Prov LAB BLOOD ORDERABLES Jessica l Result Performing Organization Address City/[facility]/ZIP Co de Phone Number MANUALLY TRANSCRIBED RESULTS documented in this encounter Visit Diagnoses Not on filedocumented in this encounter
--- OUTSIDE RECORDS SUMMARY | 2025-01-06 10:01 | XMS_ITS | Encounter Summary ---
Author Organization [facility] Address [address] [place] [place] [address] Care Team Providers Care Winding Department Supervisor Name Role Phone Hazle Grady MD Primary Care Provider [phone] Encounter Details Date Type Department Care Team (Late st Contact Info) Description 07/19/2024 Clinisync Result Encounter [facility] External Department Unsolicited Yogesh Canales DO [address] [place], [place] [address] Social History Tobacco Use Types Packs/Day Years [...] PM EDT Routine [facility] [address] [facility] [place] [address] Maryanne Whiteside PA [address] [place] [address] documented as of this encounter Procedures Procedure Name Priority Date/Time Associated Diagnosis Comments US OB TRANSVAGINAL 07/19/2024 4: 28 AM EST documented in this encounter Results * US OB TRANSVAGINAL (07/19/2024 4:28 AM EST) Anatomical Region Laterality Modality Other 07/19/2024 4:28 AM EST Narrative 07/19/2024 4:31 [place] [address] Ultrasound Report Signed Patient: JIMBO DOE MR#: [id number] : 2005 Acct:[id number] Age/Sex: 18 / F ADM Date: 07/18/24 Loc: [facility] Attending Dr: Yogesh Canales D.O. Ordering Physician: Yogesh Canales D.O. Date of Service: 07/18/24 Procedure(s): US OB transvaginal Accession Number(s): [id number] cc: Yogesh Canales D.O.; HAZEL GRADY [place] [address] Patient Name: JIMBO DOE MRN: [id number] date: 2005 Sex: F Assigned Patient Location: [facility] Current Patient Location: Accession/Order Number: [id number] Exam Date: 07/18/2024 10:06 Report Date: 07/19/2024 04:28 At the request of: YOGESH CANALES Procedure: US OB transvaginal EXAMINATION: US OB transvaginal HISTORY: MISSED MENSES COMPARISON: No relevant comparison available. FINDINGS: GESTATIONAL SAC: Present and normal appearing. YOLK SAC: Present and normal appearing. POLE: Present and normal appearing. CARDIAC: Present. UTERUS: Normal size and appearance. OVARIES: Right: Normal. Left: Corpus lutein cyst. CERVIX: 3.8 cm in length and closed. CUL-DE-SAC: Normal. OTHER: None. AGE BY LMP: 10 weeks 0 days MONIQUE BY LMP: 02/25/2025 AGE BY US CRL: 7 weeks 3 days MONIQUE BY US CRL: 03/03/2025 US/US OB transvaginal IMPRESSION: 1. Single live intrauterine . Electronically authenticated by: SALBADOR SOFIA Date: 07/19/2024 04:28 Dictated By: Salbador Sofia M.D. Signed By: 07/19/24 0431 DD/ 0428 TD/TT: Rope Cutter: Procedure Note Radiology, Radiologist, - 07/19/2024 [place] [address] Ultrasound Report Signed Patient: JIMBO DOE RMR#: [id number] : 2005Acct:[id number] Age/Sex: 18 / FADM Date: 07/18/24 Loc: [facility] Attending Dr: Yogesh Canales D.O. Ordering Physician: Yogesh Canales D.O. Date of Service: 07/18/24 Procedure(s): US OB transvaginal Accession Number(s): [id number] cc: Yogesh Canales D.O.; HAZEL GRADY [place] [address] Patient Name: JIMBO DOE MRN: [id number] date: 2005 Sex: F Assigned Patient Location: [facility] Current Patient Location: Accession/Order Number: [id number] Exam Date: 07/18/2024 10:06 Report Date: 07/19/2024 04:28 At the request of: YOGESH CANALES Procedure: US OB transvaginal EXAMINATION: US OB transvaginal HISTORY: MISSED MENSES COMPARISON: No relevant comparison available. FINDINGS: GESTATIONAL SAC: Present and normal appearing. YOLK SAC: Present and normal appearing. POLE: Present and normal appearing. CARDIAC: Present. UTERUS: Normal size and appearance. OVARIES: Right: Normal. Left: Corpus lutein cyst. CERVIX: 3.8 cm in length and closed. CUL-DE-SAC: Normal. OTHER: None. AGE BY LMP: 10 weeks 0 days MONIQUE BY LMP: 02/25/2025 AGE BY US CRL: 7 weeks 3 days MONIQUE BY US CRL: 03/03/2025 US/US OB transvaginal IMPRESSION: 1. Single live intrauterine . Electronically authenticated by: SALBADOR SOFIA Date: 07/19/2024 04:28 Dictated By: Salbador Sofia M.D. Signed By:07/19/24 0431 DD/ 0428 TD/TT: Rope Cutter: us Yogesh Canales DO [facility] Final Result documented in this encounter Visit Diagnoses Not on filedocumented in this encounter Care Teams Winding Department Supervisor Relationship Specialty Start Date End Date Hazel Grady MD [address] [place] [address] PCP - General Family Medicine 07/18/24 documented as of this encounter
--- OUTSIDE RECORDS SUMMARY | 2025-01-06 10:01 | XMS_ITS | Encounter Summary ---
Author Organization [facility] Address [address] [place] [address] Care Team Providers Care Professional Housing Consultant Name Role Phone David Awan MD Primary Care Provider [phone] Encounter Details Date Type Department Care Team (Late st Contact Info) Description 08/08/2024 Abstract [facility] [address] [facility] [address] [place] [phone] Cb Canales DO [address] [place] [address] [address] [place], [place] [address] Social History Tobacco Use Types Packs/Day Years [...] PM EDT Routine [facility] [address] [facility] [place] [phone] Maryanne Whiteside PA [address] [place], [place] [address] documented as of this encounter Visit Diagnoses Not on filedocumented in this encounter Care Teams Professional Housing Consultant Relationship Specialty Start Date End Date David Awan MD [address] [place] [address] PCP - General Family Medicine 07/18/24 documented as of this encounter
--- OUTSIDE RECORDS SUMMARY | 2025-01-06 10:01 | XMS_ITS | Encounter Summary ---
Author Organization [facility] [employer] [facility] tem Address [id number] [address] [place] [address] Care Team Providers Care Heat Treat Technician Name Role Phone Unavailable Primary Care Provider Unavailabl e Encounter Details Date Type Department Care Team (Late Contact Info) Description 01/04/2025 Orders Only Maternal- Medicine at [facility] [address] [place] [address] Ref Prov, [place] [address] Social History Tobacco Use Types Packs/Day Years [...] 01/18/2025 8:15 AM EDT Appointment Maternal Medicine [place] [address] [place] [address] documented as of this encounter Procedures Procedure [...] MORE FETUS Routine 01/04/2025 10:51 AM EDT documented in this encounter Results * Ultrasound limited 1 or more fetus (01/04/2025 10:58 AM EDT) Anatomical Region Laterality Modality OB-CANDY CATCHER Ultrasound us Not In System Ref Prov IMG US ORDERABLES Final R esult * Ultrasound limited 1 or more fetus (01/04/2025 10:56 AM EDT) Anatomical Region Laterality Modality OB-CANDY CATCHER Ultrasound us Not In System Ref Prov IMG US ORDERABLES Final R esult * Ultrasound limited 1 or more fetus (01/04/2025 10:55 AM EDT) Anatomical Region Laterality Modality OB-CANDY CATCHER Ultrasound us Not In System Ref Prov IMG US ORDERABLES Final R esult * Ultrasound limited 1 or more fetus (01/04/2025 10:54 AM EDT) Anatomical Region Laterality Modality OB-CANDY CATCHER Ultrasound us Not In System Ref Prov IMG US ORDERABLES Final R esult * Ultrasound limited 1 or more fetus (01/04/2025 10:51 AM EDT) Anatomical Region Laterality Modality OB-CANDY CATCHER Ultrasound us Not In System Ref Prov IMG US ORDERABLES Final R esult documented in this encounter Visit Diagnoses Not on filedocumented in this encounter
--- OUTSIDE RECORDS SUMMARY | 2025-01-06 10:01 | XMS_ITS | Encounter Summary ---
Author Organization [facility] Address [address] [place] [address] Care Team Providers Care Can Intake Worker Name Role Phone Hazel Grady MD Primary Care Provider [phone] Encounter Details Date Type Department Care Team (Late st Contact Info) Description 01/03/2025 Clinisync Result Encounter [facility] External Department Unsolicited Yogesh Canales DO [address] [place], [place] [address] Social History Tobacco Use Types Packs/Day Years [...] PM EDT Routine [facility] [address] [facility] [address] Maryanne Whiteside PA [address] [place] [address] documented as of this encounter Procedures Procedure Name Priority Date/Time Associated Diagnosis Comments US OB BPP W NON-STRESS 01/03/2025 10:43 AM EDT documented in this encounter Results * US OB BPP W NON-STRESS (01/03/2025 10:43 AM EDT) Anatomical Region Laterality Modality Other 01/03/2025 10:4 3 AM EDT Narrative 01/03/2025 10:46 [place] [address] Ultrasound Report Signed Patient: JIMBO DOE MR#: [id number] : 2005 Acct:[id number] Age/Sex: 19 / F ADM Date: 01/03/25 Loc: [facility] 251-[address]: Yogesh Canales D.O. Ordering Physician: Yogesh Canales D.O. Date of Service: 01/03/25 Procedure(s): US OB BPP w non-stress Accession Number(s): [id number] cc: Yogesh Canales D.O.; HAZEL GRADY [place] [address] Patient Name: JIMBO DOE MRN: [id number] date: 2005 Sex: F Assigned Patient Location: [facility] Current Patient Location: [facility] Accession/Order Number: [id number] Exam Date: 01/03/2025 10:37 Report Date: 01/03/2025 10:43 At the request of: YOGESH CANALES DO Procedure: US OB BPP w non-stress BIOPHYSICAL PROFILE: CLINICAL INFORMATION: Oligohydramnios O41.03x1 COMPARISON: 07/18/2024 There is a single live intrauterine gestation in cephalic presentation. The reported gestational age is 31 weeks 4 days. The heart rate beats per minute. FINDINGS: TONE: 1 or [...] Nascimento M.D. 01/03/2025 10:43 AM Dictation Location: [place] [address] Electronically authenticated by: [id number] Y Date: 01/03/2025 10:43 Dictated By: Aparna Nascimento M.D. Signed By: 01/03/25 1046 DD/ 1043 TD/TT: Small Arms Repairer: Procedure Note Radiology, Radiologist, - 01/03/2025 [place] [address] Ultrasound Report Signed Patient: JIMBO DOE RMR#: [id number] : 2005Acct:[id number] Age/Sex: 19 / FADM Date: 01/03/25 Loc: [facility] 251-[address]: Yogesh Canales D.O. Ordering Physician: Yogesh Canales D.O. Date of Service: 01/03/25 Procedure(s): US OB BPP w non-stress Accession Number(s): [id number] cc: Yogesh Canales D.O.; HAZEL GRADY [place] [address] Patient Name: JIMBO DOE MRN: [facility]:[id number] date: 2005 Sex: F Assigned Patient Location: [facility] Current Patient Location: [facility] Accession/Order Number: [id number] Exam Date: 01/03/2025 10:37 Report Date: 01/03/2025 10:43 At the request of: YOGESH CNAALES DO Procedure: US OB BPP w non-stress BIOPHYSICAL PROFILE: CLINICAL INFORMATION: Oligohydramnios O41.03x1 COMPARISON: 07/18/2024 There is a single live intrauterine gestation in cephalic presentation.The reported gestational age is 31 weeks 4 days. The heart [id number] beats per minute. FINDINGS: TONE: 1 or more episodes of activity extension and flexion of extremity or opening and closing of the hand [Y] 2/2 GROSS BODY MOVEMENTS: 3 or more discrete body or limb movements [Y] 2/2 BREATHING MOVEMENTS: 1 or more episodes of breathing lastingat least 30 seconds [Y] 2/2 JEROD: A single deepest vertical pocket of amniotic fluid greater than 2 cm [Y] 2/2 JEROD: 6.6 cm. The 2.5th percentile is 7.9 cm. Total score: 8/8 US/US OB BPP w non-stress IMPRESSION: NORMAL BIOPHYSICAL PROFILE. OLIGOHYDRAMNIOS . Impression dictated by: Aparna Nascimento M.D. 01/03/2025 10:43 AM Dictation Location: [place] [address] Electronically authenticated by: [id number] Y Date: 0:43 Dictated By: Aparna Nascimento M.D. Signed By:01/03/25 1046 DD/ 1043 TD/TT: Small Arms Repairer: us Yogesh Ally DO [facility] Final Result documented in this encounter Visit Diagnoses Not on filedocumented in this encounter Care Teams Can Intake Worker Relationship Specialty Start Date End Date Hazel Grady MD [address] [place] [address] PCP - General Family Medicine 07/18/24 documented as of this encounter
--- OUTSIDE RECORDS SUMMARY | 2025-01-06 10:01 | XMS_ITS | Clinical Summary ---
Author Organization [facility] Address [address] [place] [address] Care Team Providers Care Veneer Repairer Machine Name Role Phone Hazel Grady MD Primary Care Provider [phone] Allergies Active Allergy Reactions Criticality Noted Date Comments Amoxicillin Rash Low 2003 Medications sertraline (Zoloft) 50 MG tablet Take 50 mg by mouth at bedtime 04/05/2024 Active promethazine (Phenergan) 12.5 MG tabletIndicatio ns: headache, antepartum Take 1 tablet (12.5 mg) by mouth every 6 (six) hours if needed for nausea or vomiting (headache) for up to 30 doses Take 1 tablet by mouth every 6 hours as needed for nausea. 30 tablet 2 08/17/2024 Active magnesium oxide (Mag-Ox) 400 MG tablet Take 1 tablet by mouth Daily 09/16/2024 Active ondansetron (Zofran) 4 MG tablet Take 4 mg by mouth every 6 (six) hours if needed for nausea or vomiting Active Encounters Date Type Department Care Team Description 01/03/2025 Clinisync Result Encounter [facility] External Department Unsolicited Yogesh Canales DO 12/28/2024 9:50 AM EDT Routine [facility] [address] [place] [address] Yogesh Canales DO 30 weeks gestation of ; Third trimester ; Oligohydramnios in third trimester, fetus 1 of multiple gestation 12/28/2024 9:00 AM EDT Ancillary Procedure [facility] [address] [place] [address] size inconsistent with dates 12/16/2024 Clinisync Result Encounter NOMS External Department Unsolicited Yogesh Canales, DO 12/15/2024 Clinisync Result Encounter NOMS External Department Unsolicited Yogesh Canales, DO 12/06/2024 1:20 PM EDT Routine [facility] OB [address] [facility] [place] [address] Lynette Gunter, DEE DEE size inconsistent with dates (Primary Dx); 27 weeks gestation of ; Second trimester 12/06/2024 Travel 12/06/2024 OnelChaordixdelvis flowsheet [facility] OB [address] [place] [address] [place] [address] Lynette Gunter, DEE DEE 11/30/2024 Clinisync Result Encounter NOMS External Department Unsolicited Yogesh Canales, DO 11/15/2024 10:50 AM EDT Routine [facility] OB [address] [place] [address] [place] [address] Yogesh Canales, DO 24 weeks gestation of ; Second trimester ; Diabetes mellitus screening 11/15/2024 10:00 AM EDT Ancillary Procedure [facility] OB [address] [place] [address] [place] [address] Encounter for follow-up ultrasound of anatomy 11/01/2024 Telephone [facility] OB [address] [place] [address] [place] [address] Yogesh Canales, DO 10/18/2024 2:30 PM EDT Routine [facility] OB [address] [place] [address] [place] [address] Maryanne Whiteside PA Second trimester ; 20 weeks gestation of 10/18/2024 1:00 PM EDT Ancillary Procedure [facility] OB [address] [facility] [place] [address] 10/18/2024 Travel from Last 3 Months Social History Tobacco Use Types Packs/Day Years Used Date Smoking Tobacco: Never Assessed Estimated Date of Delivery Comme nts Yes 03/03/2025 Based on Ultraso und Sex and Gender Information Value Date Recorded Sex Assigned at Not on file Legal Sex Female 10:07 AM EST Gender Identity Not on file Sexual Orientation Not on file Last Filed Vital Signs Vital Sign Reading Time Taken Comments Blood Pressure 126/82 12/28/2024 10:20 AM EDT Pulse - - Temperature - - Respiratory Rate - - Oxygen Saturation - - Inhaled Oxygen Concentration - - Weight 140 kg (308 lb 4 oz) 12/28/2024 10:20 AM EDT Height - - Body Mass Index - - Plan of Treatment Upcoming Encounters Date Type Department Care Team (Late st Contact Info) Description 01/11/2025 1:30 PM EDT Routine [facility] OB [address] [facility] [phone] Maryanne Whiteside PA [address] [facility] [address] [place], [place] [id number] Procedures Procedure Name Priority Date/Time Associated Diagnosis Comments US OB BPP W NON-STRESS 01/03/2025 10:43 AM EDT POCT URINALYSIS DIPSTICK Routine 12/28/2024 10:23 AM EDT 30 weeks gestation of US OB FOLLOW UP TRANSABDOMINAL APPROACH Routine 12/28/2024 9:43 AM EDT size inconsistent with dates TBH URINE T PROTEIN CREAT RATIO Routine 12/16/2024 1:30 PM EDT [facility] LIPASE Routine 12/16/2024 12:41 PM EDT ALL AMYLASE Routine 12/16/2024 12:41 PM EDT [facility] CMP (CMP) (FOR REMOTE [facility] USE) Routine 12/16/2024 12:41 PM EDT ALL CBC WITH AUTO DIFF Routine 12:41 PM EDT ALL URIC ACID Routine 12/16/2024 12:30 AM EDT [facility] LIPASE Routine 12/16/2024 12:30 AM EDT ALL AMYLASE Routine 12/16/2024 12:30 AM EDT [facility] CMP (CMP) (FOR REMOTE [facility] USE) Routine 12/16/2024 12:30 AM EDT ALL CBC WITH AUTO DIFF Routine 12:30 AM EDT [facility] URINE MICROSCOPIC ONLY Routine 12/15/2024 11:00 PM EDT TBH UA (CLEAN/CATCH) SALES REPRESENTATIVE CHURCH FURNITURE/MICRO IF IND. Routine 12/15/2024 11:00 PM EDT POCT URINALYSIS DIPSTICK Routine 12/06/2024 1:28 PM EDT 27 weeks gestation of Second trimester GLUCOSE 1 HOUR Routine 11/30/2024 2:12 PM EDT ALL CBC WITH AUTO DIFF Routine 2:12 PM EDT POCT URINALYSIS DIPSTICK Routine 11/15/2024 10:42 AM EDT 24 weeks gestation of Second trimester US OB LIMITED 1+ FETUSES Routine 11/15/2024 10:24 AM EDT Encounter for follow-up ultrasound of anatomy POCT URINALYSIS DIPSTICK Routine 10/18/2024 2:36 PM EDT Second trimester US OB 14+ WEEKS ANATOMY SCAN Routine 10/18/2024 2:02 PM EDT Screening, , for anatomic survey from Last 3 Months Results * US OB BPP W NON-STRESS (01/03/2025 10:43 AM EDT) Anatomical Region Laterality Modality Other 01/03/2025 10:4 3 AM EDT Narrative 01/03/2025 10:46 [place] [address] Ultrasound Report Signed Patient: FRANCES DOE MR#: [id number] : 2005 Acct:[id number] Age/Sex: 19 / F ADM Date: 01/03/25 Loc: [facility] 251-[address]: Yogesh Canales D.O. Ordering Physician: Yogesh Canales D.O. Date of Service: 01/03/25 Procedure(s): US OB BPP w non-stress Accession Number(s): [id number] cc: Yogesh Canales D.O.; HAZEL GRADY [place] [address] Patient Name: FRANCES DOE MRN: [facility]:[id number] date: 2005 Sex: F Assigned Patient Location: [facility] Current Patient Location: [facility] Accession/Order Number: [id number] Exam Date: 01/03/2025 10:37 Report Date: 01/03/2025 10:43 At the request of: YOGESH CANALES DO Procedure: US OB BPP w non-stress BIOPHYSICAL PROFILE: CLINICAL INFORMATION: Oligohydramnios O41.03x1 COMPARISON: 07/18/2024 There is a single live intrauterine gestation in cephalic presentation. The reported gestational age is 31 weeks 4 days. The heart rate [id number] beats per minute. FINDINGS: TONE: 1 or [...] Nascimento M.D. 01/03/2025 10:43 AM Dictation Location: [place] [address] Electronically authenticated by: [id number] Y Date: 01/03/2025 10:43 Dictated By: Aparna Nascimento M.D. Signed By: 01/03/25 1046 DD/ 1043 TD/TT: Intelligence Operations: Procedure Note Radiology, Radiologist, - 01/03/2025 [place] [address] Ultrasound Report Signed Patient: FRANCES DOE RMR#: [id number] : 2005Acct:[id number] Age/Sex: 19 / FADM Date: 01/03/25 Loc: [facility] 251-[address]: Yogesh Canales D.O. Ordering Physician: Yogesh Canales D.O. Date of Service: 01/03/25 Procedure(s): US OB BPP w non-stress Accession Number(s): [id number] cc: Yogesh Canales D.O.; HAZEL GRADY [place] [address] Patient Name: FRANCES DOE MRN: [facility]:[id number] date: 2005 Sex: F Assigned Patient Location: [facility] Current Patient Location: [facility] Accession/Order Number: [id number] Exam Date: 01/03/2025 10:37 Report Date: 01/03/2025 10:43 At the request of: YOGESH CANALES DO Procedure: US OB BPP w non-stress BIOPHYSICAL PROFILE: CLINICAL INFORMATION: Oligohydramnios O41.03x1 COMPARISON: 07/18/2024 There is a single live intrauterine gestation in cephalic presentation.The reported gestational age is 31 weeks 4 days. The heart [id number] beats per minute. FINDINGS: TONE: 1 or [...] Nascimento M.D. 01/03/2025 10:43 AM Dictation Location: [place] [address] Electronically authenticated by: [id number] Y Date: 0:43 Dictated By: Aparna Nascimento M.D. Signed By:01/03/25 1046 DD/ 1043 TD/TT: Intelligence Operations: us Yogesh Ally DO [facility] IMAGING Final Result * (ABNORMAL) POCT urinalysis dipstick manually resulted (12/28/2024 10:23 AM EDT) Only the most recent of4 resultswithin the time period is included. Color, UA Yellow Clarity, UA Clear Glucose, [...] Positive Urine 12/28/2024 10:2 3 AM EDT us Yogesh Canales DO POINT OF CARE TEST ENTER/EDIT OR DERABLES Final Result * US OB follow up transabdominal approach [...] 02/21/2025. Interpreted by: Electronically signed by DOROTHY VARELA II, MD, PHD at 29-Dec-2024 12:17:39 PM [facility] Procedure Note Dorothy Varela MD - 12/29/2024 EXAM: US OB FOLLOW [...] 02/21/2025. Interpreted by: Electronically signed by DOROTHY VARELA II, MD, PHD [id number] 12:17:39 PM [facility] us Lynette Gunter BOTTOM WHEELER IMG OB US PROCEDURES Final Re sult * (ABNORMAL) TBH URINE T PROTEIN CREAT RATIO (12/16/2024 1:30 PM EDT) Pathologist [facility] TOTAL PROTEIN URINE RANDOM 17.9(H) <=11.9 mg/dL TBH CREATININE URINE RANDOM 124.49 20.00 - 300.00 mg/dL TBH PROTEIN CREATININE RATIO URINE 0.14 TBH 12/16/2024 1:30 PM EDT 12/16/2024 1:34 PM EDT Narrative CLINISYNC - 12/16/2024 1:46 PM EDT us Yogesh Canales DO CLINISYNC Final Result [facility] * (ABNORMAL) [facility] LIPASE (12/16/2024 12:41 PM EDT) Only the most recent of2 resultswithin the time period is included. LIPASE 15.0(L) 16.0 - 77.0 U/L TBH 12/16/2024 12:4 1 PM EDT 12/16/2024 12:44 PM EDT Narrative CLINISYNC - 12/16/2024 1:22 PM EDT us Yogesh Ally DO CLINISYNC Final Result [facility] * (ABNORMAL) [facility] CMP (CMP) (FOR REMOTE [facility] USE) (12/16/2024 12:41 PM EDT) Only the most recent of2 resultswithin the time period is included. SODIUM 135(L) 136 - 145 mmol/L TBH POTASSIUM 3.7 3.5 - 5.1 mmol/L TBH CHLORIDE 104 98 - 107 mmol/L TBH CARBON DIOXIDE 24.6 21.0 - 32.0 mmol/L TBH ANION GAP 10.1 TBH GLUCOSE 86 74 - 106 mg/dL TBH BLOOD UREA NITROGEN 4.0(L) 7.0 - 18.0 mg/dL TBH CREATININE 0.57 0.55 - 1.02 mg/dL TBH TBH EGFR-AF FINNISH >60 >=60 mL/min/1. 73m 2 TBH TBH EGFR-NON AF FINNISH >60 >=60 mL/min/1. 73m 2 TBH BUN CREATININE RATIO 7.0 TBH CALCIUM 8.3(L) 8.5 - 10.1 mg/dL TBH BILIRUBIN TOTAL 0.2 0.2 - 1.0 mg/dL TBH ASPARTATE AMINO TRANSFERASE 10(L) 15 - 37 U/L TBH ALANINE AMINOTRANSFERASE 16 14 - 59 U/L TBH ALKALINE PHOSPHATASE 113 46 - 116 U/L TBH TOTAL PROTEIN 6.2(L) 6.4 - 8.2 g/dL TBH ALBUMIN LEVEL 2.3(L) 3.4 - 5.0 g/dL TBH GLOBULIN 3.9 g/dL TBH ALBUMIN GLOBULIN RATIO 0.6 TBH 12/16/2024 12:4 1 PM EDT 12/16/2024 12:44 PM EDT Narrative CLINISYNC - 12/16/2024 1:22 PM EDT us Yogesh Herrerao DO [facility] Final Result [facility] * (ABNORMAL) ALL CBC WITH AUTO DIFF (12/16/2024 12:41 PM EDT) Only the most recent of3 resultswithin the time period is included. TBH WBC 8.2 4.0 - 11.0 10 3/uL TBH TBH RBC 3.74(L) 4.20 - 5.40 10 6/uL TBH TBH HGB 10.4(L) 12.0 - 16.0 g/dL TBH TBH HCT 31.6(L) 36.0 - 48.0 % TBH TBH MCV 84.5 81.0 - 99.0 fL TBH TBH MCH 27.8 26.7 - 34.0 pg TBH TBH MCHC 32.9 29.9 - 35.2 g/dL TBH TBH RDW 12.9 11.0 - 15.0 % TBH TBH PLT 274 150 - 450 10 3/uL TBH TBH MPV 9.1(L) 9.5 - 13.5 fL TBH NEUTROPHILS PERCENT AUTO 70.2 43.0 - 75.0 % TBH LYMPHOCYTES PERCENT AUTO 20.9 20.5 - 60.0 % TBH MONOCYTES PERCENT AUTO 8.2 1.7 - 12.0 % TBH TBH EO % 0.2(L) 0.9 - 7.0 % TBH BASOPHILS PERCENT AUTO 0.1(L) 0.2 - 2.0 % TBH IMMATURE GRANULOCYTES PCT AUTO 0.4 0.0 - 0.5 % TBH NEUTROPHILS ABSOLUTE AUTO 5.8 1.4 - 6.5 10 3/uL TBH LYMPHOCYTES ABSOLUTE AUTO 1.7 1.2 - 3.8 10 3/uL TBH MONOCYTES ABSOLUTE AUTO 0.7 0.3 - 0.8 10 3/uL TBH TBH EO # 0.0 0.0 - 0.7 10 3/uL TBH BASOPHILS ABSOLUTE AUTO 0.0 0.0 - 0.1 10 3/uL TBH IMMATURE GRANULOCYTES ABS AUTO 0.03 0.00 - 0.03 10 3/uL TBH 12/16/2024 12:4 1 PM EDT 12/16/2024 12:44 PM EDT Narrative CLINISYNC - 12/16/2024 12:53 PM EDT Yogesh Ally DO CLINISYNC Final Result Performing Organization Address [facility]/ZIP Co de Phone Number [facility] * ALL AMYLASE (12/16/2024 12:41 PM EDT) Only the most recent of2 resultswithin the time period is included. AMYLASE 36 25 - 115 U/L TB 12/16/2024 12:4 1 PM EDT 12/16/2024 12:44 PM EDT Narrative CLINISYNC - 12/16/2024 1:22 PM EDT Yogesh Ally DO CLINISYNC Final Result Performing Organization Address [facility]/ZIP Co de Phone Number [facility] * ALL URIC ACID (12/16/2024 12:30 AM EDT) URIC ACID 3.2 2.6 - 6.0 mg/dL TB 12/16/2024 12:3 0 AM EDT 12/16/2024 1:30 AM EDT Narrative CLINISYNC - 12/16/2024 1:37 AM EDT [facility] Ally DO CLINISYNC Final Result Performing Organization Address City/[facility] Co de Phone Number [facility] * (ABNORMAL) TBH URINE MICROSCOPIC ONLY (12/15/2024 11:00 PM EDT) TBH WBC 20-50(A) NONE SEEN #/HPF TBH TBH RBC 0-2 0 - 2 #/HPF TBH BACTERIA URINE MODERATE(A ) NONE SEEN #/HPF TBH MUCUS URINE NONE SEEN NONE SEEN TBH SQUAMOUS EPITHELIAL CELL URINE MODERATE(A ) NONE/RARE #/LPF TBH CRYSTALS SEEN? None Seen None Seen #/HPF TBH CAST SEEN? NONE SEEN NONE SEEN #/LPF TBH URINE CULTURE INDICATED YES-LC TBH 12/15/2024 11:0 0 PM EDT 12/15/2024 11:30 PM EDT Narrative CLINISYNC - 12/15/2024 11:39 PM EDT us Yogesh Ally DO CLINISYNC Final Result Performing Organization Address City/[facility]/ZIP Co de Phone Number [facility]IN[facility] * (ABNORMAL) TBH UA (CLEAN/CATCH) SALES REPRESENTATIVE CHURCH FURNITURE/MICRO IF IND. (12/15/2024 11:00 PM EDT) COLOR URINE LT. YELLOW YELLOW TBH CLARITY URINE CLEAR CLEAR TBH SPECIFIC GRAVITY URINE <=1.005(A) 1.005 - 1.025 TBH PH URINE 7.0 5.0 - 9.0 TBH PROTEIN URINE NEGATIVE NEG/TRACE mg/dL TBH GLUCOSE URINE UA NEGATIVE NEGATIVE mg/dL TBH BILIRUBIN URINE NEGATIVE NEGATIVE TBH KETONES URINE NEGATIVE NEGATIVE mg/dL TBH BLOOD URINE NEGATIVE NEGATIVE TBH NITRITE URINE NEGATIVE NEGATIVE TBH UROBILINOGEN URINE 0.2 0.2 - 1.0 EU/dL TBH LEUKOCYTE ESTERASE URINE LARGE(A) NEGATIVE TBH URINE MICROSCOPIC INDICATED YES TBH 12/15/2024 11:0 0 PM EDT 12/15/2024 11:30 PM EDT Narrative CLINISYNC - 12/15/2024 11:39 PM EDT us Yogesh Ally DO CLINISYNC Final Result Performing Organization Address [facility]/ZIP Co de Phone Number [facility] * GLUCOSE 1 HOUR (11/30/2024 2:12 PM EDT) GLUCOSE 1 HOUR 96 <130 mg/dL TBH 11/30/2024 2:12 PM EDT 11/30/2024 2:14 PM EDT Narrative CLINISYNC - 11/30/2024 3:11 PM EDT us Yogesh Ally DO LAB BLOOD ORDERABLES Final Resul t [facility] * US OB limited 1+ fetuses (11/15/2024 10:24 AM EDT) Anatomical Region Laterality Modality Body Ultrasound 11/17/2024 6:25 AM EDT Narrative 11/17/2024 6:25 AM EDT EXAM: US OB LIMITED 1+ FETUSES HISTORY: [...] tracts. Interpreted by: Electronically signed by DOROTHY VARELA II, MD, PHD at 17-Nov-2024 06:24:10 AM [facility] Procedure Note Dorothy Varela MD - 11/17/2024 EXAM: US OB LIMITED 1+ FETUSES HISTORY: Follow up anatomy. COMPARISON: OB ultrasound 10/18/2024. TECHNIQUE: Two-dimensional transabdominal grayscale ultrasound imaging ofthe pelvis was performed. FINDINGS: Gestation: Single Presentation: Breech Cardiac Activity: 148 beats per minute Placental Location: Anterior with no sonographic abnormalitiesidentified. Cervical canal: Not visualized Amniotic Fluid: Appears adequate ANATOMY LVOT: Unremarkable RVOT: Unremarkable IMPRESSION: 1. Single, live intrauterine gestation 24 weeks, 4 days by LMP. MONIQUE is03/03/2025. 2. Unremarkable follow up anatomy of the outflow tracts. Interpreted by: Electronically signed by DOROTHY VARELA II, MD, PHD [id number] 06:24:10 AM [facility] us Yogesh Canales DO IMG OB US PROCEDURES Final Resul t * US OB 14+ weeks anatomy scan (10/18/2024 2:02 PM EDT) Anatomical Region Laterality Modality Body Ultrasound 10/19/2024 9:02 AM EDT Narrative 10/19/2024 9:02 AM EDT EXAM: US OB 14+ WEEKS ANATOMY SCAN [...] is recommended. Electronically Signed:Electronically signed by DOROTHY VARELA II, MD, PHD at 19-Oct-2024 09:01:31 AM [facility] Procedure Note Dorothy Varela MD - 10/19/2024 EXAM: US OB 14+ WEEKS ANATOMY SCAN HISTORY: anatomy. COMPARISON: None available. TECHNIQUE: Two-dimensional transabdominal grayscale ultrasound imaging ofthe pelvis was performed. Exam limited due to patient body habitus. FINDINGS: Gestation: Single Presentation: Transverse Cardiac Activity: 161 beats per minute Placental Location: Anterior with no sonographic abnormalitiesidentified. Distance from Placental Tip to Cervix: 8.6 [...] is 21 weeks 1 days (+/- 10 daysgestation). Estimated Weight: 410 grams, +/- 61 grams [...] gestation 20 weeks, 4 days by LMP. Today'sultrasound measurements correlate with a gestational age of 21 weeks 1days. Estimated weight is 410 grams, +/- 61 grams ( 0 lb 14 oz)which correlates to 81 %. MONIQUE is 02/27/2025. 2. Unremarkable anatomy with limited visualization of the outflowtracts and cord vessels. A short-term follow-up ultrasound isrecommended. Electronically Signed:Electronically signed by DOROTHY VARELA II, MD, PHDat 19-Oct-2024 09:01:31 AM [facility] us Maryanne FOWLER IMG OB US PROCEDURES Final Resul t from Last 3 Months Insurance [facility] Care Teams Veneer Repairer Machine Relationship Specialty Start Date End Date Hazel Grady MD [address] [place] [address] PCP - General Family Medicine 07/18/24
--- OUTSIDE RECORDS SUMMARY | 2025-01-06 10:01 | XMS_ITS | Patient Health Record ---
Author Organization [employer] [facility] [employer] es Address [address] [place] [address] Care Team Providers Care Banquet Coordinator Name Role Phone Amanda Wilson Primary Care Provider Reason For Referral No Information Plan Of Treatment No Information Insurance Providers Payer Name Payer Address Payer Phone Subscriber Number Group Number Insured Name Patient Relationship to Insured Coverage Start Date Coverage End Date [facility] [address] [address] [place] [address] [id number] JIMBO DOE Self - patient is the insured 3
--- OUTSIDE RECORDS SUMMARY | 2025-01-06 10:01 | XMS_ITS | Encounter Summary ---
Author Organization [facility] Address [address] [place] [address] Care Team Providers Care Clinical Support Tech Name Role Phone David Awan MD Primary Care Provider Encounter Details Date Type Department Care Team (Late st Contact Info) Description 07/18/2024 Abstract [facility] B[facility] OB [address] [facility] [place] [phone] Cb Canales DO [address] [place] [address] [address] [place], [place] [id number] Social History Tobacco Use Types Packs/Day Years [...] PM EDT Routine [facility] BCP OB [address] [facility] [place] [phone] Maryanne Whiteside PA [address] [facility] [address] [place], [place] [phone] documented as of this encounter Visit Diagnoses Not on filedocumented in this encounter Care Teams Clinical Support Tech Relationship Specialty Start Date End Date David Awan MD [address] [place] [address] PCP - General Family Medicine 07/18/24 documented as of this encounter
[2025-01-06 10:16] VITALS: BP 147/70; PULSE 99
[2025-01-06 11:41] LABS: Amnisure NEGATIVE (NEGATIVE); Internal Control Within Normal Limits
== END 2025-01-06 11:56 | disposition home or self-care (01) ==
LOC: FBCO 09:58 → FBC 09:59
PROVIDERS: PCP Family Medicine; Visit Provider Obstetrics & Gynecology
DX: O41.02X0 Oligohydramnios, second trimester, not applicable or unspecified (principal); Z3A.32 32 weeks gestation of pregnancy
CPT/HCPCS: 59025; 84112

== ENCOUNTER 2025-01-10 09:49 | Outpatient (OUT) | payer OTHER, SELFPAY ==
--- OUTSIDE RECORDS SUMMARY | 2016-05-22 10:00 | XMS_ITS | Continuity of Care Document ---
Author Organization [employer] [facility] Address [address] [facility] [place] [address] Phone Care Team Providers Care Superintendent Power Name Role Phone Floyd WANG, Selvin Unavailable [...] Diagnoses Date Provider Providers Copied on Encounter [employer] [facility], [address] [facility] [address], [place], [place], [address], [place] tel:[phone] [facility] vaccine adm. (chief complaint) No Information 6 Floyd Montalvo. [address] [address], [place], [place], [address], [place]. tel:[phone] Referring Provider: Selvin Bell, [address] [address], [place], [address] . tel:[phone] [facility], [address] [place] [address] [address], [place], [place], [address], [place] tel:[phone] [facility] No Information 6 No Information [facility], [address] [place] [address] [address], [place], [place], [address], [place] tel:[phone] [facility] No Information 5 Floyd Montalvo. [address] [address], [place], [place], [address], [place]. tel:[phone] PREV VISIT, NEW, AGE 5-11 [facility], [address] [place] [address] [address], [place], [place], [address], [place] tel:[phone] [facility] Well child (chief complaint) Encntr for routine child health exam w/o abnormal findings 5 Ahmet Snyder. [address], [address], [place]. tel:[phone] Referring Provider: Lillian Leo MD, [facility] [address], [address]. tel:[phone] Family History Family Member Type Diagnosis Age [...] Registry Payers Payer name Insurance type Covered alliance party ID Authoriza tion(s) Medicaid MC [id number] Medicaid MC [id number] Medicaid [place] [id number] [facility] [id number] Social History Type Description Quantity Date Captured Comments Alcohol Use Details Unknown Caffeine Use Details Unknown Tobacco Use Status No Information Smoking Status No Information Sex Female Sexual Orientation Straight or heterosexual Chief Complaint And Reason For Visit From [...] abnormal findings Age appropriate safe ty discussed (-14 years) Related to Encntr for routine child health exam w/o abnormal findings Oral Health Discussed (- yea rs) Related to Encntr for routine child health exam w/o abnormal findings Assessments Type Assessment Date No Information Patient Care Teams Name Effective Dates (start - stop) Status Members No Information
--- OUTSIDE RECORDS SUMMARY | 2023-08-23 10:15 | XMS_ITS ---
Author Organization [facility] Address [address] [place] [address] Care Team Providers Care Automobile Mechanic Assistant Name Role Phone Amanda Wilson Primary Care Provider [phone] REASON FOR VISIT NEW PT REFERRAL FROM [facility] Encounters Encounter Location Date Provider Diagnosis [facility] [address] [place] [address] 08/23/2023 Amanda Wilson Plan Of Treatment No Information Progress Notes * YUMIKO DOEEDOB: [birth year] (19 yo F)Acc No.[id number]:08/23/2023 Consult - Patient Patient: JIMBO PICHARDO Provider: JOSEPH Dumont :2005 A ge:17 Y S ex:Female Date:08/23/2023 Address:[address], [place], [phone] Subjective: * Chief Complaints: * 1 . NEW PT REFERRAL FROM [facility]. Objective: Therapeutic Interventions: Assessment: Plan: * Images: Care Plan Details* * Electronic signature of JOSEPH Sheikh on 01/10/2025 at 09:51 AM EDT Sign off status: Pending * Provider: JOSEPH Dumont Date: 08/23/2023 Generated for Jessyi ng/Faxing/eTransmitting on: 0 01/10/2025 09:51 AM EDT
--- OUTSIDE RECORDS SUMMARY | 2024-12-28 09:00 | XMS_ITS | Encounter Summary ---
Author Organization [facility] Address [address] [place] [address] Care Team Providers Care Partition Setter Name Role Phone David Awan MD Primary Care Provider [phone] Encounter Details Date Type Department Care Team (Latest Contact Info) Description 12/28/2024 9:00 AM EDT Ancillary Procedure [facility] [address] [place] [address] [place] [address] size inconsistent with dates Social History [...] Care Team (Late st Contact Info) Description 01/11/2025 1:30 PM EDT Routine [facility] [address] [place], [place] [address] [phone] Maryanne Whiteside PA [address] [place] [address] Dr [place], [facility] documented as of this encounter Procedures Procedure [...] II, MD, PHD at 29-Dec-2024 12:17:39 PM [facility] Procedure Note Dorothy Duckworth MD - [...] signed by DOROTHY DUCKWORTH II, MD, PHD [id number] 12:17:39 PM [facility] us Lynette Gunter MAIL WEIGHER IMG OB US PROCEDURES Final Re sult documented in this encounter Visit Diagnoses Diagnosis size inconsistent with dates documented in this encounter Care Teams Partition Setter Relationship Specialty Start Date End Date David Awan MD [address] [place] [address] PCP - General Family Medicine 07/18/24 documented as of this encounter
--- OUTSIDE RECORDS SUMMARY | 2024-12-28 09:50 | XMS_ITS | Encounter Summary ---
Author Organization [facility] Address [address] [place] [facility] [place] [address] Care Team Providers Care Feed Adviser Name Role Phone David Awan MD Primary Care Provider [phone] Reason for Visit * Reason Comments Routine Visit Encounter Details Date Type Department Care Team (Late st Contact Info) Description 12/28/2024 9:50 AM EDT Routine [facility] [address] [place] [address] Cb Canales, DO [address] [facility] [place] [address] 30 weeks gestation of ; Third trimester [...] nursing note reviewed. Exam conducted with a wash operator present. Vitals: There is no height or [...] 1:30 PM EDT Routine [facility] [address] [place] [phone] Maryanne Whiteside PA [address] [place] [address] Scheduled Orders Name Type Priority Associated Diagnoses [...] UA Clear Glucose, UA Negative Negative - 2000(110) ++++ mg/dL Bilirubin, UA Negative Negative - [...] gestation documented in this encounter Care Teams Feed Adviser Relationship Specialty Start Date End Date David Awan MD [address] [place] [id number] PCP - General Family Medicine 07/18/24 documented as of this encounter
--- NOTE | 2025-01-10 | US_ITS ---
[address] [address] Patient Name: JIMBO DOE MRN: [id number] date: 2005 Sex: F Assigned Patient Location: [facility] Current Patient Location: [facility] Accession/Order Number: [id number] Exam Date: 01/10/2025 10:39 Report Date: 01/10/2025 10:44 At the request of: YOGESH CALI DO Procedure: US OB BPP w non-stress BIOPHYSICAL PROFILE: CLINICAL INFORMATION: OLIGOHYDRAMNIOS O41.09X1 COMPARISON: 01/03/2025 There is a single live intrauterine gestation in cephalic presentation. The reported gestational age is 32 weeks 4 days. The heart rate beats per minute. FINDINGS: TONE: 1 or more episodes of activity extension and flexion of extremity or opening and closing of the hand [Y] 2/2 GROSS BODY MOVEMENTS: 3 or more discrete body or limb movements [Y] 2/2 BREATHING MOVEMENTS: 1 or more episodes of breathing lasting at least 30 seconds [Y] 2/2 JEROD: A single deepest vertical pocket of amniotic fluid greater than 2 cm [Y] 2/2 JEROD: 8.9 cm. This is just above the 5th percentile (8.6 cm). Total score: 8/8 US/ OB BPP w non-stress IMPRESSION: NORMAL BIOPHYSICAL PROFILE. BORDERLINE OLIGOHYDRAMNIOS. Impression dictated by: Aparna Nascimento M.D. 01/10/2025 10:44 AM Dictation Location: [place] [address] Electronically authenticated by: [id number] Y Date: 01/10/2025 10:44
--- OUTSIDE RECORDS SUMMARY | 2025-01-10 09:52 | XMS_ITS | Clinical Summary ---
Author Organization [employer] [facility] tem Address [id number] [address] [place] [address] Care Team Providers Care Record Filing Clerk Name Role Phone Unavailable Primary Care Provider [...] Description 01/04/2025 Orders Only Maternal- Medicine at [facility] [address] [place] [address] Ref Prov, Not In System 01/04/2025 Abstract Maternal- Medicine at [facility] [address] [place] [address] Mike Lay MD from Last 3 Months [...] 01/18/2025 8:15 AM EDT Appointment Maternal Medicine [facility] [address] [place] [address] Health Maintenance Due Date Last Done Comments [...] period is included. Anatomical Region Laterality Modality OB-HAM SAWYER Ultrasound us Not In System Ref Prov IMG US ORDERABLES Final R esult * CBC without diff (11/30/2024) Hemoglobin 11.2 MANUALLY TRANSCRIBED RESULTS Hematocrit 34.0 MANUALLY TRANSCRIBED RESULTS Rbc Mcv (Fl) By Automated Count 84.0 MANUALLY TRANSCRIBED RESULTS Blood Venous blood / Unknown us Not In System Ref Prov LAB BLOOD ORDERABLES Jessica l Result MANUALLY TRANSCRIBED RESULTS from Last 3 Months Insurance [facility]
--- OUTSIDE RECORDS SUMMARY | 2025-01-10 09:52 | XMS_ITS | Encounter Summary ---
Author Organization [facility] Address [address] [place] [address] Care Team Providers Care Psychologist Military Personnel Name Role Phone David Awan MD Primary Care Provider [phone] Encounter Details Date Type Department Care Team (Late st Contact Info) Description 08/08/2024 Abstract [facility] B[facility] OB [address] [facility] [place] [phone] Cb Canales DO [address] [place] [address] [address] [place], [place] [id number] Social History Tobacco Use Types Packs/Day Years [...] PM EDT Routine [facility] BCP OB [address] [facility] [place] [phone] Maryanne Whiteside PA [address] [facility] [address] [place], [place] [phone] documented as of this encounter Visit Diagnoses Not on filedocumented in this encounter Care Teams Psychologist Military Personnel Relationship Specialty Start Date End Date David Awan MD [address] [place] [address] PCP - General Family Medicine 07/18/24 documented as of this encounter
--- OUTSIDE RECORDS SUMMARY | 2025-01-10 09:52 | XMS_ITS | Encounter Summary ---
Author Organization [facility] [facility] tem Address [id number] [address] [place] [address] Care Team Providers Care Hairspring Studder Name Role Phone Unavailable Primary Care Provider Unavailabl e Encounter Details Date Type Department Care Team (Late Contact Info) Description 01/04/2025 Orders Only Maternal- Medicine at [facility] [address] [place] [address] Ref Prov, [place] [address] Social History Tobacco Use Types Packs/Day Years [...] 01/18/2025 8:15 AM EDT Appointment Maternal Medicine [place] [address] [place] [address] documented as of this encounter Procedures Procedure [...] 10:58 AM EDT) Anatomical Region Laterality Modality OB-INDUSTRIAL SEWER Ultrasound us Not In System Ref Prov IMG US ORDERABLES Final R esult * Ultrasound limited 1 or more fetus (01/04/2025 10:56 AM EDT) Anatomical Region Laterality Modality OB-INDUSTRIAL SEWER Ultrasound us Not In System Ref Prov IMG US ORDERABLES Final R esult * Ultrasound limited 1 or more fetus (01/04/2025 10:55 AM EDT) Anatomical Region Laterality Modality OB-INDUSTRIAL SEWER Ultrasound us Not In System Ref Prov IMG US ORDERABLES Final R esult * Ultrasound limited 1 or more fetus (01/04/2025 10:54 AM EDT) Anatomical Region Laterality Modality OB-INDUSTRIAL SEWER Ultrasound us Not In System Ref Prov IMG US ORDERABLES Final R esult * Ultrasound limited 1 or more fetus (01/04/2025 10:51 AM EDT) Anatomical Region Laterality Modality OB-INDUSTRIAL SEWER Ultrasound us Not In System Ref Prov IMG US ORDERABLES Final R esult documented in this encounter Visit Diagnoses Not on filedocumented in this encounter
--- OUTSIDE RECORDS SUMMARY | 2025-01-10 09:52 | XMS_ITS | Encounter Summary ---
Author Organization [facility] Address [address] [place] [address] Care Team Providers Care Payroll Lead Name Role Phone David Awan MD Primary Care Provider [phone] Encounter Details Date Type Department Care Team (Late st Contact Info) Description 07/18/2024 Abstract [facility] [address] [place] [phone] Cb Canales DO [address] [place] [address] [address] [place], [place] [id number] Social History Tobacco Use Types Packs/Day Years [...] PM EDT Routine [facility] [address] [place] [phone] Maryanne Whiteside PA [address] [place], [place] [phone] documented as of this encounter Visit Diagnoses Not on filedocumented in this encounter Care Teams Payroll Lead Relationship Specialty Start Date End Date David Awan MD [address] [place] [address] PCP - General Family Medicine 07/18/24 documented as of this encounter
--- OUTSIDE RECORDS SUMMARY | 2025-01-10 09:52 | XMS_ITS | Encounter Summary ---
Author Organization [facility] Address [address] [place] [address] Care Team Providers Care Project Management Specialist Name Role Phone Hazel Grady MD Primary Care Provider [phone] Encounter Details Date Type Department Care Team (Late st Contact Info) Description 07/19/2024 Clinisync Result Encounter NOMS External Department Unsolicited Yogesh Canales DO [address] [place], [place] [address] Social History Tobacco Use Types Packs/Day Years [...] PM EDT Routine [facility] [address] [facility] [address] Maryanne Whiteside PA [address] [facility] [place] [address] documented as of this encounter Procedures Procedure Name Priority Date/Time Associated Diagnosis Comments US OB TRANSVAGINAL 07/19/2024 4: 28 AM EST documented in this encounter Results * US OB TRANSVAGINAL (07/19/2024 4:28 AM EST) Anatomical Region Laterality Modality Other 07/19/2024 4:28 AM EST Narrative 07/19/2024 4:31 [place] [address] Ultrasound Report Signed Patient: JIMBO DOE MR#: [id number] : 2005 Acct:[id number] Age/Sex: 18 / F ADM Date: 07/18/24 Loc: [facility] Attending Dr: Yogesh Canales D.O. Ordering Physician: Yogesh Canales D.O. Date of Service: 07/18/24 Procedure(s): US OB transvaginal Accession Number(s): [id number] cc: Yogesh Canales D.O.; HAZEL GRADY [place] [address] Patient Name: JIMBO DOE MRN: [id number] date: 2005 Sex: F Assigned Patient Location: [facility] Current Patient Location: Accession/Order Number: [id number] Exam Date: 07/18/2024 10:06 Report Date: 07/19/2024 [...] Signed By: 07/19/24 0431 DD/ 0428 TD/TT: Computer Engineering Technician: Procedure Note Radiology, Radiologist, - 07/19/2024 [place] [address] Ultrasound Report Signed Patient: JIMBO DOE RMR#: [id number] : 2005Acct:[id number] Age/Sex: 18 / FADM Date: 07/18/24 Loc: [facility] Attending Dr: Yogesh Canales D.O. Ordering Physician: Yogesh Canales D.O. Date of Service: 07/18/24 Procedure(s): US OB transvaginal Accession Number(s): [id number] cc: Yogesh Canales D.O.; HAZEL GRADY [place] [address] Patient Name: JIMBO DOE MRN: [id number] date: 2005 Sex: F Assigned Patient Location: [facility] Current Patient Location: Accession/Order Number: [id number] Exam Date: 07/18/2024 10:06 Report Date: 07/19/2024 [...] M.D. Signed By:07/19/24 0431 DD/ 0428 TD/TT: Computer Engineering Technician: us Yogesh Canales DO [facility] Final Result documented in this encounter Visit Diagnoses Not on filedocumented in this encounter Care Teams Project Management Specialist Relationship Specialty Start Date End Date Hazel Grady MD [address] [place] [address] PCP - General Family Medicine 07/18/24 documented as of this encounter
--- OUTSIDE RECORDS SUMMARY | 2025-01-10 09:52 | XMS_ITS | Clinical Summary ---
Author Organization [facility] Address [address] [place] [address] Care Team Providers Care Liaison Engineer Name Role Phone Hazel Grady MD Primary Care Provider [phone] Allergies Active Allergy Reactions Criticality Noted Date [...] Encounters Date Type Department Care Team Description 01/06/2025 Clinisync Result Encounter [facility] External Department Unsolicited Yogesh Canales DO 01/03/2025 Clinisync Result Encounter NOMS External Department Unsolicited Yogesh Canales DO 12/28/2024 9:50 AM EDT Routine [facility] OB [address] [place] [address] [place] [phone] Yogesh Canales DO 30 weeks gestation of ; Third trimester ; Oligohydramnios in third trimester, fetus 1 of multiple gestation 12/28/2024 9:00 AM EDT Ancillary Procedure [facility] [address] [facility] [place] [address] size inconsistent with dates 12/16/2024 Clinisync Result Encounter [facility] External Department Unsolicited Yogesh Canales, DO 12/15/2024 Clinisync Result Encounter [facility] External Department Unsolicited Yogesh Canales, DO 12/06/2024 1:20 PM EDT Routine [facility] B[facility] OB [address] [place] [address] Lynette Gunter, DEE DEE size inconsistent with dates (Primary Dx); 27 weeks gestation of ; Second trimester 12/06/2024 Travel 12/06/2024 Bamboo flowsheet [facility] BCP OB [address] [place] [address] Lynette Gunter NP 11/30/2024 Clinisync Result Encounter [facility]OMS External Department Unsolicited Yogesh Canales, DO 11/15/2024 10:50 AM EDT Routine [facility] B[facility] OB [address] [place] [address] Yogesh Canales, DO 24 weeks gestation of ; Second trimester ; Diabetes mellitus screening 11/15/2024 10:00 AM EDT Ancillary Procedure [facility] OB [address] [place] [address] Encounter for follow-up ultrasound of anatomy 11/01/2024 Telephone [facility] OB [address] [place] [address] Yogesh Canales, 10/18/2024 2:30 PM EDT Routine [facility] BCP OB [address] [place] [address] Maryanne Whiteside PA Second trimester ; 20 weeks gestation of 10/18/2024 1:00 PM EDT Ancillary Procedure [facility] BCP OB [address] [place] [address] 10/18/2024 Travel from Last 3 Months Social [...] PM EDT Routine [facility] BCP OB [address] [place] [address] Maryanne Whiteside PA [address] [facility] [place] [address] Procedures Procedure Name Priority Date/Time Associated Diagnosis Comments AMNISURE Routine 01/06/2025 11:15 AM EDT US OB BPP W NON-STRESS 01/03/2025 10:43 [...] PM EDT [facility] CMP (CMP) (FOR REMOTE [facility] USE) Routine 12/16/2024 12:41 PM EDT ALL CBC WITH AUTO DIFF Routine 12:41 PM EDT ALL URIC ACID Routine 12/16/2024 12:30 AM EDT [facility] LIPASE Routine 12/16/2024 12:30 AM EDT ALL AMYLASE Routine 12/16/2024 12:30 AM EDT [facility] CMP (CMP) (FOR REMOTE [facility] USE) Routine 12/16/2024 12:30 AM EDT ALL CBC WITH AUTO DIFF Routine 12:30 AM EDT [facility] URINE MICROSCOPIC ONLY Routine 12/15/2024 11:00 PM EDT [facility] UA (CLEAN/CATCH) STONEHAND/MICRO IF IND. Routine 12/15/2024 11:00 PM EDT [...] survey from Last 3 Months Results * AMNISURE (01/06/2025 11:15 AM EDT) Pathologist [facility] AMNISURE NEGATIVE NEGATIVE [facility] 01/06/2025 11:1 5 AM EDT 01/06/2025 11:29 AM EDT Narrative [facility] - 01/06/2025 11:41 AM EDT us Yogesh Canales DO LAB BLOOD ORDERABLES Final Resul t [facility] * US OB BPP W NON-STRESS (01/03/2025 10:43 AM EDT) Anatomical Region Laterality Modality Other 01/03/2025 10:4 3 AM EDT Narrative 01/03/2025 10:[place] [address] Ultrasound Report Signed Patient: FRANCES DOE MR#: [id number] : 2005 Acct:[id number] Age/Sex: 19 / F ADM Date: 01/03/25 Loc: [facility] 251-[address]: Yogesh Canales D.O. Ordering Physician: Yogesh Canales D.O. Date of Service: 01/03/25 Procedure(s): US OB BPP w non-stress Accession Number(s): [id number] cc: Yogesh Canales D.O.; HAZEL GRADY The [address] [address] Patient Name: FRANCES DOE MRN: [facility]:[id number] date: 2005 Sex: F Assigned Patient Location: [facility] Current Patient Location: [facility] Accession/Order Number: [id number] Exam Date: 01/03/2025 10:37 Report Date: 01/03/2025 10:43 At the request of: YOGESH CANALES DO Procedure: US OB BPP w non-stress BIOPHYSICAL PROFILE: CLINICAL INFORMATION: Oligohydramnios O41.03x1 COMPARISON: 07/18/2024 There is a single live intrauterine gestation in cephalic presentation. The reported gestational age is 31 weeks 4 days. The heart rate [id number] beats per minute. FINDINGS: TONE: 1 or [...] Nascimento M.D. 01/03/2025 10:43 AM Dictation Location: [place] [address] Electronically authenticated by: [id number] Y Date: 01/03/2025 10:43 Dictated By: Aparna Nascimento M.D. Signed By: 01/03/25 1046 DD/ 1043 TD/TT: Daytime Caregiver: Procedure Note Radiology, Radiologist, - 01/03/2025 [place] [address] Ultrasound Report Signed Patient: FRANCES DOE RMR#: [id number] : 2005Acct:[id number] Age/Sex: 19 / FADM Date: 01/03/25 Loc: [facility] 251-[address]: Yogesh Canales D.O. Ordering Physician: Yogesh Canales D.O. Date of Service: 01/03/25 Procedure(s): US OB BPP w non-stress Accession Number(s): [id number] cc: Yogesh Canales D.O.; HAZEL GRADY [place] [address] Patient Name: FRANCES DOE MRN: [id number] date: 2005 Sex: F Assigned Patient Location: [facility] Current Patient Location: [facility] Accession/Order Number: [id number] Exam Date: 01/03/2025 10:37 Report Date: 01/03/2025 10:43 At the request of: YOGESH CANALES DO Procedure: US OB BPP w non-stress BIOPHYSICAL PROFILE: CLINICAL INFORMATION: Oligohydramnios O41.03x1 COMPARISON: 07/18/2024 There is a single live intrauterine gestation in cephalic presentation.The reported gestational age is 31 weeks 4 days. The heart [id number] beats per minute. FINDINGS: TONE: 1 or [...] Nascimento M.D. 01/03/2025 10:43 AM Dictation Location: [place] [address] Electronically authenticated by: [id number] Y Date: 0:43 Dictated By: Aparna Nascimento M.D. Signed By:01/03/25 1046 DD/ 1043 TD/TT: Daytime Caregiver: Yogesh Canales DO [facility] Final Result * (ABNORMAL) [...] - 9 Protein, UA Positive Negative - 2000(20) ++++ mg/dL Comment:30mg/dL Urobilinogen, UA 0.2 0.2 - 12 mg/dL Leukocytes, UA Positive Negative - 500+++ Supa/mcL Comment:small Nitrite, UA Negative Negative - Positive Urine 12/28/2024 10:2 3 AM EDT us Yogesh Ally DO POINT OF CARE TEST ENTER/EDIT OR [...] II, MD, PHD at 29-Dec-2024 12:17:39 PM [facility] Procedure Note Dorothy Duckworth MD - [...] signed by DOROTHY DUCKWORTH II, MD, PHD [id number] 12:17:39 PM [facility] us Lynette Gunter NP IMG OB US PROCEDURES Final Re sult * (ABNORMAL) [facility] URINE T PROTEIN CREAT RATIO (12/16/2024 1:30 PM EDT) TOTAL PROTEIN URINE RANDOM 17.9(H) <=11.9 mg/dL [facility] CREATININE URINE RANDOM 124.49 20.00 - 300.00 mg/dL [facility] PROTEIN CREATININE RATIO URINE 0.14 [facility] 12/16/2024 1:30 PM EDT 12/16/2024 1:34 PM EDT Narrative [facility] - 12/16/2024 1:46 PM EDT Yogesh Ally DO [facility] Final Result Performing Organization Address City/[facility]/ZIP Co de Phone Number [facility] * (ABNORMAL) [facility] LIPASE (12/16/2024 12:41 PM EDT) Only the most recent of2 resultswithin the time period is included. LIPASE 15.0(L) 16.0 - 77.0 U/L [facility] 12/16/2024 12:4 1 PM EDT 12/16/2024 12:44 PM EDT Narrative [facility] - 12/16/2024 1:22 PM EDT [facility] Final Result Performing Organization Address [facility]/[place] de Phone Number CLINIS[facility] TB * (ABNORMAL) [facility] CMP (CMP) (FOR REMOTE [facility] USE) (12/16/2024 12:41 PM EDT) Only the [...] 0.55 - 1.02 mg/dL TBH TBH EGFR-AF MOROCCAN >60 >=60 mL/min/1. 73m 2 [facility] TBH EGFR-NON AF MOROCCAN >60 >=60 mL/min/1. 73m 2 [facility] BUN [...] us Yogesh Ally DO [facility] Final Result [facility] * (ABNORMAL) ALL CBC WITH AUTO DIFF [...] Narrative [facility] - 12/16/2024 12:53 PM EDT us Yogesh Ally DO [facility] Final Result [facility] * ALL AMYLASE (12/16/2024 12:41 PM EDT) Only the most recent of2 resultswithin the time period is included. AMYLASE 36 25 - 115 U/L [facility] 12/16/2024 12:4 1 PM EDT 12/16/2024 12:44 PM EDT Narrative [facility] - 12/16/2024 1:22 PM EDT us Yogesh Ally DO [facility] Final Result [facility] * ALL URIC ACID (12/16/2024 12:30 AM EDT) URIC ACID 3.2 2.6 - 6.0 mg/dL [facility] 12/16/2024 12:3 0 AM EDT 12/16/2024 1:30 AM EDT Narrative [facility] - 12/16/2024 1:37 AM EDT [employer] [facility] DO [facility] Final Result Performing Organization Address [facility] Co de Phone Number [facility] * (ABNORMAL) [facility] URINE MICROSCOPIC ONLY (12/15/2024 [...] Narrative [facility] - 12/15/2024 11:39 PM EDT [employer] DO [facility] Final Result Performing Organization Address [facility] Co de Phone Number [facility] * (ABNORMAL) [facility] UA (CLEAN/CATCH) STONEHAND/MICRO IF IND. (12/15/2024 11:00 PM EDT) COLOR [...] DO [facility] Final Result Performing Organization Address [facility] Co de Phone Number CLINIKEWY TB * GLUCOSE 1 HOUR (11/30/2024 2:12 PM EDT) GLUCOSE 1 HOUR 96 <130 mg/dL [facility] 11/30/2024 2:12 PM EDT 11/30/2024 2:14 PM EDT Narrative [facility] - 11/30/2024 3:11 PM EDT us Yogesh Ally DO LAB BLOOD ORDERABLES Final Resul t Performing Organization Address [facility] de Phone Number NEISHAWY TB * US OB limited 1+ fetuses (11/15/2024 [...] II, MD, PHD at 17-Nov-2024 06:24:10 AM [facility] Procedure Note Dorothy Duckworth MD - 11/17/2024 EXAM: US OB LIMITED [...] signed by DOROTHY DUCKWORTH II, MD, PHD 06:24:10 AM [facility] us Yogesh Ally DO IMG OB US PROCEDURES Final Resul [...] II, MD, PHD at 19-Oct-2024 09:01:31 AM [facility] Procedure Note Dorothy Duckworth MD - 10/19/2024 EXAM: US OB 14+ [...] ultrasound isrecommended. Electronically Signed:Electronically signed by DOROTHY DUCKWORTH II, MD, PHDat 19-Oct-2024 09:01:31 AM [facility] us Maryanne FOWLER IMG OB US PROCEDURES Final Resul t from Last [address] [place] [address] Care Teams Liaison Engineer Relationship Specialty Start Date End Date Hazel Grady MD [address] [place] [address] PCP - General Family Medicine 07/18/24
--- OUTSIDE RECORDS SUMMARY | 2025-01-10 09:52 | XMS_ITS | Encounter Summary ---
Author Organization [facility] Address [address] [place] [address] Care Team Providers Care Senior Core Java Developer Name Role Phone Hazel Grady MD Primary Care Provider [phone] Encounter Details Date Type Department Care Team (Late st Contact Info) Description 01/03/2025 Clinisync Result Encounter [facility] External Department Unsolicited Yogesh Canales DO [address] [place], [place] [address] Social History Tobacco Use Types Packs/Day Years [...] PM EDT Routine [facility] BCP OB [address] [place] [address] Maryanne Whiteside PA [address] [place] [place] [address] documented as of this encounter Procedures Procedure Name Priority Date/Time Associated Diagnosis Comments US OB BPP W NON-STRESS 01/03/2025 10:43 AM EDT documented in this encounter Results * US OB BPP W NON-STRESS (01/03/2025 10:43 AM EDT) Anatomical Region Laterality Modality Other 01/03/2025 10:4 3 AM EDT Narrative 01/03/2025 10:46 [place] [address] Ultrasound Report Signed Patient: JIMBO DOE MR#: [id number] : 2005 Acct:[id number] Age/Sex: 19 / F ADM Date: 01/03/25 Loc: [facility] 251-[address]: Yogesh Canales D.O. Ordering Physician: Yogesh Canales D.O. Date of Service: 01/03/25 Procedure(s): US OB BPP w non-stress Accession Number(s): [id number] cc: Yogesh Canales D.O.; HAZEL GRADY [place] [address] Patient Name: JIMBO DOE MRN: [id number] date: 2005 Sex: F Assigned Patient Location: [facility] Current Patient Location: [facility] Accession/Order Number: [id number] Exam Date: 01/03/2025 10:37 Report Date: 01/03/2025 10:43 At the request of: YOGESH CANALES DO Procedure: US OB BPP w non-stress BIOPHYSICAL PROFILE: CLINICAL INFORMATION: Oligohydramnios O41.03x1 COMPARISON: 07/18/2024 There is a single live intrauterine gestation in cephalic presentation. The reported gestational age is 31 weeks 4 days. The heart rate miwwnoml991 beats per minute. FINDINGS: TONE: 1 or [...] Nascimento M.D. 01/03/2025 10:43 AM Dictation Location: [place] [address] Electronically authenticated by: [id number] Y Date: 01/03/2025 10:43 Dictated By: Aparna Nascimento M.D. Signed By: 01/03/25 1046 DD/ 1043 TD/TT: Technical Services Librarian: Procedure Note Radiology, Radiologist, - 01/03/2025 [place] [address] Ultrasound Report Signed Patient: JIMBO DOE RMR#: [id number] : 2005Acct:[id number] Age/Sex: 19 / FADM Date: 01/03/25 Loc: [facility] 251-[address]: Yogesh Canales D.O. Ordering Physician: Yogesh Canales D.O. Date of Service: 01/03/25 Procedure(s): US OB BPP w non-stress Accession Number(s): [id number] cc: Yogesh Canales D.O.; HAZEL GRADY [place] [address] Patient Name: JIMBO DOE MRN: [facility]:[id number] date: 2005 Sex: F Assigned Patient Location: [facility] Current Patient Location: [facility] Accession/Order Number: [id number] Exam Date: 01/03/2025 10:37 Report Date: 01/03/2025 10:43 At the request of: YOGESH CANALES DO Procedure: US OB BPP w non-stress BIOPHYSICAL PROFILE: CLINICAL INFORMATION: Oligohydramnios O41.03x1 COMPARISON: 07/18/2024 There is a single live intrauterine gestation in cephalic presentation.The reported gestational age is 31 weeks 4 days. The heart [id number] beats per minute. FINDINGS: TONE: 1 or [...] Nascimento M.D. 01/03/2025 10:43 AM Dictation Location: [place] [address] Electronically authenticated by: [id number] Y Date: 0:43 Dictated By: Aparna Nascimento M.D. Signed By:01/03/25 1046 DD/ 1043 TD/TT: Technical Services Librarian: us Yogesh Ally DO [facility] Final Result documented in this encounter Visit Diagnoses Not on filedocumented in this encounter Care Teams Senior Core Java Developer Relationship Specialty Start Date End Date Hazel Grady MD [address] [place] [address] PCP - General Family Medicine 07/18/24 documented as of this encounter
--- OUTSIDE RECORDS SUMMARY | 2025-01-10 09:52 | XMS_ITS | Encounter Summary ---
Author Organization [facility] Address [address] [place] [address] Care Team Providers Care Waiter Waitress Name Role Phone David Awan MD Primary Care Provider Encounter Details Date Type Department Care Team (Late st Contact Info) Description 01/06/2025 Clinisync Result Encounter [facility] External Department Unsolicited Cb Canales DO [address], [facility] Social History Tobacco Use Types Packs/Day Years [...] PM EDT Routine [facility] BCP OB [address] [place] [address] Maryanne Whiteside PA [address] [place] [address] documented as of this encounter Procedures Procedure Name Priority Date/Time Associated Diagnosis Comments AMNISURE Routine 01/06/2025 11:15 AM EDT documented in this encounter Results * AMNISURE (01/06/2025 11:15 AM EDT) Pathologist [facility] AMNISURE NEGATIVE NEGATIVE [facility] 01/06/2025 11:1 5 AM EDT 01/06/2025 11:29 AM EDT Narrative [facility] - 01/06/2025 11:41 AM EDT us Cb Ally DO LAB BLOOD ORDERABLES Final Resul t [facility] documented in this encounter Visit Diagnoses Not on filedocumented in this encounter Care Teams Waiter Waitress Relationship Specialty Start Date End Date David Awan MD [address] [place] [address] PCP - General Family Medicine 07/18/24 documented as of this encounter
--- OUTSIDE RECORDS SUMMARY | 2025-01-10 09:52 | XMS_ITS | Patient Health Record ---
Author Organization [employer] [facility] Address [address] [place] [address] Care Team Providers Care Auto Crane Driver Name Role Phone Amanda Wilson Primary Care Provider Reason For Referral No Information Plan Of Treatment No Information Insurance Providers Payer Name Payer Address Payer Phone Subscriber Number Group Number Insured Name Patient Relationship to Insured Coverage Start Date Coverage End Date [facility] [address] [address] [place] [address] [phone] [id number] JIMBO DOE Self - patient is the insured 3
--- OUTSIDE RECORDS SUMMARY | 2025-01-10 09:52 | XMS_ITS | Encounter Summary ---
Author Organization [facility] [employer] [facility] tem Address [id number] [address] [place] [address] Care Team Providers Care Tar Leveler Name Role Phone Unavailable Primary Care Provider Unavailabl e Encounter Details Date Type Department Care Team (Late Contact Info) Description 01/04/2025 Abstract Maternal- Medicine at [facility] [address] [place] [id number] Mike Lay MD [address] [facility] [address] [place] [address] Social History Tobacco Use Types Packs/Day Years [...] 01/18/2025 8:15 AM EDT Appointment Maternal Medicine [address] [place] [id number] documented as of this encounter Procedures Procedure [...] ORDERABLES Jessica l Result Performing Organization Address City/[facility] Co de Phone Number MANUALLY TRANSCRIBED RESULTS * Syphilis Total (Unknown Syphilis Status) (08/05/2024) Syphilis non reactive MANUALL Y TRANSCRIBED RESULTS Blood Venous blood / Unknown us Not In System Ref Prov LAB BLOOD ORDERABLES Jessica l Result Performing Organization Address City/[facility]/ZIP Co de Phone Number MANUALLY TRANSCRIBED RESULTS documented in this encounter Visit Diagnoses Not on filedocumented in this encounter
--- OUTSIDE RECORDS SUMMARY | 2025-01-10 10:06 | XMS_ITS | CCD ---
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 Operator Name Role Phone Almaz Huerta Unavailable HAZEL [...] Translations: [amoxicillin] Drug Allergy 4 swelling, Rash [facility] Repository (1 source) Amoxicillin Drug Allergy 6 [facility] Repository (1 source) Amoxicillin Drug Allergy 4 [facility] Repository Medications Current Medications Medication Drug [...] Active magnesium oxide 400 mg oral tablet (16 sources) Start: 08-17-2024 End: 09-16-2024 take 1 [...] (Original) ondansetron 4 mg disintegrating oral tablet (13 sources) Serotonin-3 Receptor Antagonist Start: 07-18-2024 End: [...] Test Name Value Interpretation Reference Range Facility AMNISUREon 01-06-2025 [facility] AMNISURE Negative NEGATIVE [facility] are [facility] US OB BPP W NON-STRESS on 01-03-2025 [place] [address] Ultrasound Report Signed Patient: FRANCES DOE MR#: [id number] : 2005 Acct:[id number] Age/Sex: 19 / F ADM Date: 01/03/25 Loc: [facility] 251-[address]: Yogesh Canales D.O. Ordering Physician: Yogesh Canales D.O. Date of Service: 01/03/25 Procedure(s): US OB BPP w non-stress Accession Number(s): [id number] cc: Yogesh Canales D.O.; HAZEL GRADY The [place] [id number] Patient Name: FRANCES DOE MRN: [facility]:[id number] date: 2005 Sex: F Assigned Patient Location: [facility] Current Patient Location: [facility] Accession/Order Number: [id number] Exam Date: 01/03/2025 10:37 Report Date: 01/03/2025 10:43 At the request of: YOGESH CANALES DO Procedure: US OB BPP w non-stress BIOPHYSICAL PROFILE: CLINICAL INFORMATION: Oligohydramnios O41.03x1 COMPARISON: 07/18/2024 There is a single live intrauterine gestation in cephalic presentation. The reported gestational age is 31 weeks 4 days. The heart rate [id number] beats per minute. FINDINGS: TONE: 1 or [...] Nascimento M.D. 01/03/2025 10:43 AM Dictation Location: [place] [address] Electronically authenticated by: [id number] Y Date: 01/03/2025 10:43 Dictated By: Aparna Nascimento M.D. Signed By: 01/03/25 1046 DD/ 1043 TD/TT: Flumer: [facility] Radiology, Radiologist, - 01/03/2025 [place] [address] Ultrasound Report Signed Patient: FRANCES DOE MR#: [id number] : 2005 Acct:[id number] Age/Sex: 19 / F ADM Date: 01/03/25 Loc: [facility] 251-[address]: Yogesh Canales D.O. Ordering Physician: Yogesh Canales D.O. Date of Service: 01/03/25 Procedure(s): US OB BPP w non-stress Accession Number(s): [id number] cc: Yogesh Canales D.O.; HAZEL GRADY The [place] [address] Patient Name: FRANCES DOE MRN: [id number] date: 2005 Sex: F Assigned Patient Location: [facility] Current Patient Location: [facility] Accession/Order Number: [id number] Exam Date: 01/03/2025 10:37 Report Date: 01/03/2025 10:43 At the request of: YOGESH CANALES DO Procedure: US OB BPP w non-stress BIOPHYSICAL PROFILE: CLINICAL INFORMATION: Oligohydramnios O41.03x1 COMPARISON: 07/18/2024 There is a single live intrauterine gestation in cephalic presentation. The reported gestational age is 31 weeks 4 days. The heart rate [id number] beats per minute. FINDINGS: TONE: 1 or [...] Nascimento M.D. 01/03/2025 10:43 AM Dictation Location: [place] [address] Electronically authenticated by: [id number] Y Date: 01/03/2025 10:43 Dictated By: Aparna Nascimento M.D. Signed By: 01/03/25 1046 DD/ 1043 TD/TT: Flumer: [facility] [employer] Radiology Study observation (narrative) [facility] OB BPP W NON-STRESS Ordered By: Radiologist Radiology on 01-03-2025 [facility] [employer] Work Phone: US OB FOLLOW UP [...] II, MD, PHD at 29-Dec-2024 12:17:39 PM [facility] Normal Not Available Comment on above: Order Comment: US OB SCAN FOR GROWTH Estimated Date of Delivery: 03/03/25 Gestational Age as of 12/06/2024: 27w4d Urinalysis macro (dipstick) panel (U)on 12-28-2024 Bilirubin, UA Negative Negative - 4(70) +++ mg/dL [facility] Blood, UA Negative Negative - 50 Sam/mcL [facility] Clarity, UA Clear [facility] Color, UA Yellow [facility] Glucose, UA Negative Negative - 1999(110) ++++ mg/dL [facility] Interpretation and review of laboratory results Abnormal [facility] Ketones, UA Negative Negative - 160(16) ++++ mg/dL [facility] Leukocytes, UA Positive Negative - 500+++ Supa/mcL [facility] Comment on above: small Nitrite, UA Negative Negative - Positive [facility] pH, UA 7 5 - 9 [facility] Protein, UA Positive Negative - 1999(20) ++++ mg/dL [facility] Comment on above: 30mg/dL Spec Grav, UA 1.015 1 - 1.03 [facility] Urobilinogen, UA 0.2 0.2 - 12 mg/dL [facility] ALL CBC WITH AUTO DIFFon BASOPHILS ABSOLUTE AUTO 0 [facility] Basophils/100 WBC (Bld) 0.2 % 0.2 - 2.0 % [facility] Eosinophils/100 WBC (Bld) 0.4 % Low 0.9 - 7.0 % [facility] Erythrocyte distribution width (RBC) [Ratio] 12.7 % 11.0 - 15.0 % [facility] Hematocrit (Bld) [Volume fraction] 34 % Low 36.0 - 48.0 % [facility] Hemoglobin (Bld) [Mass/Vol] 11.5 g/dL Low 12.0 - 16.0 g/dL [facility] IMMATURE GRANULOCYTES ABS AUTO 0.06 High [facility] Immature granulocytes/100 WBC (Bld) 0.5 % 0.0 - 0.5 % [facility] Interpretation and review of laboratory results Abnormal [facility] re LYMPHOCYTES ABSOLUTE AUTO 2.5 [facility] Lymphocytes/100 WBC (Bld) 19.6 % Low 20.5 - 60.0 % [facility] MCH (RBC) [Entitic mass] 28 pg 26.7 - 34.0 pg [facility] MCHC (RBC) [Mass/Vol] 33.8 g/dL 29.9 - 35.2 g/dL [facility] MCV (RBC) [Entitic vol] 82.7 fL 81.0 - 99.0 fL [facility] MONOCYTES ABSOLUTE AUTO 0.8 [facility] Monocytes/100 WBC (Bld) 6.5 % 1.7 - 12.0 % [facility] NEUTROPHILS ABSOLUTE AUTO 9.3 High [facility] Neutrophils/100 WBC (Bld) 72.8 % 43.0 - 75.0 % [facility] Platelet mean volume (Bld) [Entitic vol] 9.5 fL 9.5 - 13.5 fL [facility] TBH EO # 0.1 [facility] PLT 306 [facility] RBC 4.11 Low [facility] WBC 12.7 High [facility] e [facility] TB[facility] UA (CLEAN/CATCH) RESIN COATER/TARSHA RO IF IND.on 12-15-2024 BILIRUBIN URINE Negative NEGATIVE [facility] thcare BLOOD URINE Negative NEGATIVE [facility] Healthca re Clarity (U) CLEAR CLEAR [facility] Healthca re Color (U) LT. YELLOW YELLOW [facility] GLUCOSE URINE UA Negative NEGATIVE mg/dL [facility] Interpretation and review of laboratory results Abnormal [facility] Healthhi re Ketones Ql (U) Negative NEGATIVE mg/dL [facility] Leukocyte esterase Test strip Ql (U) LARGE Abnormal NEGATIVE [facility] Healthcar e NITRITE URINE Negative NEGATIVE [facility] care pH (U) 7.0 [pH] 5.0 - 9.0 [facility] Healthcar e PROTEIN URINE Negative NEG/TRACE mg/dL [facility] SPECIFIC GRAVITY URINE <=1.005 Abnormal 1.005 - 1.025 [facility] URINE MICROSCOPIC INDICATED YES [facility] UROBILINOGEN URINE 0.2 EU/dL 0.2 - 1.0 EU/dL [facility] Healthcar e Urinalysis macro (dipstick) panel (U)on 12-06-2024 Bilirubin, UA Negative Negative - 4(70) +++ mg/dL [facility] Blood, UA Negative Negative - 50 Sam/mcL [facility] Clarity, UA Clear [facility] re Color, UA Yellow [facility] e Glucose, UA Negative Negative - 1999(110) ++++ mg/dL [facility] Interpretation and review of laboratory results Abnormal [facility] re Ketones, UA Positive Negative - 160(16) ++++ mg/dL [facility] Comment on above: trace Leukocytes, UA Trace Negative - 500+++ Supa/mcL [facility] Nitrite, UA Negative Negative - Positive [facility] pH, UA 5.5 5 - 9 [facility] Healthcar e Protein, UA Negative Negative - 1999(20) ++++ mg/dL [facility] Spec Grav, UA 1.03 1 - 1.03 [facility] Urobilinogen, UA 0.2 0.2 - 12 mg/dL [facility] Healthcar e ALL CBC WITH AUTO DIFFon BASOPHILS ABSOLUTE AUTO 0 [facility] Basophils/100 WBC (Bld) 0.2 % 0.2 - 2.0 % [facility] Eosinophils/100 WBC (Bld) 0.3 % Low 0.9 - 7.0 % [facility] Erythrocyte distribution width (RBC) [Ratio] 12.8 % 11.0 - 15.0 % [facility] Hematocrit (Bld) [Volume fraction] 34 % Low 36.0 - 48.0 % [facility] Healthcar e Hemoglobin (Bld) [Mass/Vol] 11.2 g/dL Low 12.0 - 16.0 g/dL [facility] IMMATURE GRANULOCYTES ABS AUTO 0.05 High [facility] Immature granulocytes/100 WBC (Bld) 0.4 % 0.0 - 0.5 % [facility] Interpretation and review of laboratory results Abnormal [facility] LYMPHOCYTES ABSOLUTE AUTO 2.1 [facility] Lymphocytes/100 WBC (Bld) 17.3 % Low 20.5 - 60.0 % [facility] MCH (RBC) [Entitic mass] 27.7 pg 26.7 - 34.0 pg [facility] MCHC (RBC) [Mass/Vol] 32.9 g/dL 29.9 - 35.2 g/dL [facility] MCV (RBC) [Entitic vol] 84 fL 81.0 - 99.0 fL [facility] MONOCYTES ABSOLUTE AUTO 0.8 [facility] Monocytes/100 WBC (Bld) 6.6 % 1.7 - 12.0 % [facility] NEUTROPHILS ABSOLUTE AUTO 8.9 High [facility] Neutrophils/100 WBC (Bld) 75.2 % High 43.0 - 75.0 % [facility] Platelet mean volume (Bld) [Entitic vol] 9.1 fL Low 9.5 - 13.5 fL [facility] TBH EO # 0 [facility] Healthcar e TBH PLT 281 [facility] TBH RBC 4.05 Low [facility] Healthcar e TBH WBC 11.8 High [facility] e [facility] [...] II, MD, PHD at 17-Nov-2024 06:24:10 AM [facility] Normal Not Available Comment on above: Order Comment: US OB INCOMPLETE ANATOMY Estimated Date of Delivery: 03/03/25 Gestational Age as of 11/01/2024: 22w4d Urinalysis macro (dipstick) panel (U)on 11-15-2024 Bilirubin, UA Negative Negative - 4(70) +++ mg/dL [facility] Healthcare Blood, UA Negative Negative - 50 Sam/mcL [facility] Clarity, UA Clear [facility] Color, UA Yellow [facility] Glucose, UA Negative Negative - 1999(110) ++++ mg/dL [facility] Interpretation and review of laboratory results Abnormal [facility] Ketones, UA Negative Negative - 160(16) ++++ mg/dL [facility] Healthcare Leukocytes, UA Trace Negative - 500+++ Supa/mcL [facility] Healthcare Nitrite, UA Negative Negative - Positive [facility] pH, UA 6.5 5 - 9 [facility] Protein, UA Trace Negative - 1999(20) ++++ mg/dL [facility] Healthcare Spec Grav, UA 1.02 1 - 1.03 [facility] Urobilinogen, UA 0.2 0.2 - 12 mg/dL [facility] Urinalysis macro (dipstick) panel (U)on 10-18-2024 Bilirubin, UA Negative Negative - 4(70) +++ mg/dL [facility] Healthcare Blood, UA Negative Negative - 50 Sam/mcL [facility] Healthcare Clarity, UA Clear [facility] Color, UA Yellow [facility] Glucose, UA Negative Negative - 1999(110) ++++ mg/dL [facility] Healthcare Interpretation and review of laboratory results Normal [facility] Ketones, UA Negative Negative - 160(16) ++++ mg/dL [facility] Healthcare Leukocytes, UA Negative Negative - 500+++ Supa/mcL [facility] Nitrite, UA Negative Negative - Positive [facility] pH, UA 6 5 - 9 [facility] Protein, UA Negative Negative - 1999(20) ++++ mg/dL [facility] Spec Grav, UA 1.03 1 - 1.03 [facility] care Urobilinogen, UA 0.2 0.2 - 12 mg/dL [facility] Health[facility] e RECURRENT VAGINITIS (HTRX)on 09-23-2024 ATOPOBIUM VAGINAE 21.837 Abnormal [facility]care ATOPOBIUM VAGINAE Detected Abnormal [facility] BVAB 2,3 (BACTERIAL VAGINOSIS ASSOCIATED BACTERIA 2, 3); MOBILUNCUS SPP 14.391 Abnormal [facility] BVAB 2,3 (BACTERIAL VAGINOSIS ASSOCIATED BACTERIA 2, 3); MOBILUNCUS SPP Detected Abnormal [facility] WILBERT ALBICANS, PARAPSILOSIS, TROPICALIS 0 [facility] WILBERT ALBICANS, PARAPSILOSIS, TROPICALIS Not detected [facility] WILBERT GLABRATA 0 [facility] Hea lthcare WILBERT GLABRATA Not detected [facility] ealthcare WILBERT KRUSEI 0 [facility] Healt hcare WILBERT KRUSEI Not detected [facility] CHLAMYDIA TRACHOMATIS 0 [facility] CHLAMYDIA TRACHOMATIS Not detected [facility] ERMB, C; MEFA 22.056 Abnormal [facility] care ERMB, C; MEFA Detected Abnormal [facility] GARDNERELLA VAGINALIS 27.529 Abnormal [facility] GARDNERELLA VAGINALIS Detected Abnormal [facility] Interpretation and review of laboratory results Abnormal [facility] re MEGASPHAERA (TYPES 1, 2) 15.923 Abnormal [facility] MEGASPHAERA (TYPES 1, 2) Detected Abnormal [facility] MYCOPLASMA GENITALIUM 0 [facility] MYCOPLASMA GENITALIUM Not detected [facility] NEISSERIA GONORRHOEAE 0 [facility] NEISSERIA GONORRHOEAE Not detected [facility] TET B, TET M 16.766 Abnormal [facility] Healthc are TET B, TET M Detected Abnormal [facility] Healthc are TRICHOMONAS VAGINALIS 0 [facility] TRICHOMONAS VAGINALIS Not detected [facility] GLUCOSE 1 HOURon 09-22-2024 Glucose [Mass/Vol] 114 mg/dL NINF - 13 0 mg/dL [facility] Healthcar e US OB 14+ WEEKS [...] II, MD, PHD at 19-Oct-2024 09:01:31 AM [facility] Normal Not Available Comment on above: Order Comment: US OB ANATOMY SINGLE W US OB CERVICAL LENGTH Estimated Date of Delivery: 03/03/25 Gestational Age as of 09/21/2024: 16w5d Urinalysis macro (dipstick) panel (U)Ordered By: Vicky Rodríguez on 09-21-2024 Bilirubin, UA Negative Negative - 4(70) +++ mg/dL [facility] Blood, UA Negative Negative - 50 Sam/mcL [facility] Clarity, UA Clear [facility] Color, UA Yellow [facility] Healthcar e Glucose, UA Negative Negative - 1999(110) ++++ mg/dL [facility] Interpretation and review of laboratory results Normal [facility] Ketones, UA Negative Negative - 160(16) ++++ mg/dL [facility] Leukocytes, UA Negative Negative - 500+++ Supa/mcL [facility] Nitrite, UA Negative Negative - Positive [facility] pH, UA 7.5 5 - 9 [facility] Healthcar e Protein, UA Negative Negative - 1999(20) ++++ mg/dL [facility] Spec Grav, UA 1.02 1 - 1.03 [facility] Urobilinogen, UA 0.2 0.2 - 12 mg/dL [facility] Health[facility] e Urinalysis macro (dipstick) panel (U)on 08-17-2024 Bilirubin, UA Negative Negative - 4(70) +++ mg/dL [facility] Blood, UA Negative Negative - 50 Sam/mcL [facility] Clarity, UA Clear [facility] Color, UA Yellow [facility] Healthcar e Glucose, UA Negative Negative - 1999(110) ++++ mg/dL [facility] Interpretation and review of laboratory results Abnormal [facility] Ketones, UA Negative Negative - 160(16) ++++ mg/dL [facility] Leukocytes, UA Positive Negative - 500+++ Supa/mcL [facility] Comment on above: small Nitrite, UA Negative Negative - Positive [facility] pH, UA 6 5 - 9 [facility] Healthcar e Protein, UA Negative Negative - 1999(20) ++++ mg/dL [facility] Spec Grav, UA 1.03 1 - 1.03 [facility] Urobilinogen, UA 0.2 0.2 - 12 mg/dL [facility] Health[facility] e MLR HEMOGLOBIN A1Con 12-28-2 024 Glucose [Mass/Vol] 111 mg/dL [facility] ealthcare HbA1c (Bld) [Mass fraction] 5.5 % 4.5 - 6.2 % [facility] Comment on above: ADA RECOMMENDED LIMI T 4.0 - 6.0 ADA THERAPEUTIC TARGET < 7.0 ACTION SUGGESTED > 7.0 [facility] Urine Cultureon 08-05-2024 Bacteria identified Cx Nom (U) <9,000 colonies/ml mixed bacterial skin contaminants 2 Days PERFORMED BY: [facility] [address] [place] [address] PATHOLOGIST SUPPORT SERVICES SPECIALIST ELICEO SPENCER M.D. Normal [facility] Comment on above: Performed By: #### C UU #### [facility] [address] HCG ( test) Ql (U)o n 07-18-2024 Interpretation and review of laboratory results Abnormal [facility] Healthca re Preg Test, Ur Positive Negative [facility] care [facility] Healthcar e Urinalysis macro (dipstick) panel (U)on 07-18-2024 Bilirubin, UA Negative Negative - 4(70) +++ mg/dL [facility] Blood, UA Negative Negative - 50 Sam/mcL [facility] Clarity, UA Clear [facility] Healthca re Color, UA Yellow [facility] Healthcar e Glucose, UA Negative Negative - 1999(110) ++++ mg/dL [facility] Interpretation and review of laboratory results Normal [facility] Healthhi re Ketones, UA Negative Negative - 160(16) ++++ mg/dL [facility] Leukocytes, UA Negative Negative - 500+++ Supa/mcL [facility] Nitrite, UA Negative Negative - Positive [facility] pH, UA 6.5 5 - 9 [facility] Healthcar e Protein, UA Negative Negative - 1999(20) ++++ mg/dL [facility] Spec Grav, UA 1.02 1 - 1.03 [facility] Urobilinogen, UA 0.2 0.2 - 12 mg/dL [facility] TBH PREG QUANT HCGon 024 HCG QUANTITATIVE 203 mIU/mL [facility] Hea lthcare Comment on above: 5-50 0.2-1 WEEK 50-500 1-2 WEEKS 100-5,000 2-3 WEEKS 500-10,000 3-4 WEEKS 1,000-50,000 4-5 WEEKS 10,000-100,000 5-6 WEEKS 15,000-200,000 6-8 WEEKS 10,000-100,000 2-3 MONTHS [facility] Quick Strepon 09-17-2023 S. pyogenes Org specific cx Ql (Throat) positve [employer] Other Quick Strep [employer] Other Test, Urineon 08-11 Beta HCG ( test) Ql (U) Negative [employer] Other Capillary Glucose POCon Glucose [Mass/Vol] 94 mg/dL Normal 55-99 [facility] Comment on above: Result Comment: Loretta mcneal RN/ Performed By: #### 2 [id number] #### [facility] Laboratory [address] [place] [address] Consent for Treatmenton Consent for Treatment [id number]#[id number] 0TIFF Normal [facility] Discharge Instructionson Discharge Instructions [id number] 0TIFF Normal [facility] ED Clinical Summaryon 2022 ED Clinical Summary [address] [address] ED Clinical Summary Person Information Name: FRANCES DOE/[facility]_Franco Age: 17 Years : 2005 Sex: Female Language: Venezuelan PCP: Hazel Grady MD Marital Status: Single [...] 07/14/2023 03:42:20 07/14/2023 03:42:20 07/14/2023 03:42:20 ADDRESS: [address] [place] [address] [address] [place] [id number] PHYS DOC NOTES: MEDICAL INFORMATION: Prescriptions Given: New Medications [id number], [address], [place] [id number], [phone] azithromycin (azithromycin 250 mg Tab) 1 Tablets By Mouth every day for 4 Days. Refills: 0. PATIENT EDUCATION INFORMATION: Instructions: Viral Illness, Adult; Otitis Media, Adult Follow up: With: Address: When: Hazelsilke Grady [address] [place] [address] Business (2) In 7 days 07/21/2023 DIAGNOSIS: AOM (acute otitis media); Viral illness Normal [facility] ED Note-Physicianon 07-14-20 ED Note-Physician Basic Information Time Seen: Torsten Mariamah Nadya 07/14/2023 01:56 Chief Complaint Ear pain [...] day(s), # 4 tab(s), Refills(s) 0, Pharmacy: [id number], 175, cm, 07/13/23 23:42:00 EST, Height/Length Dosing, 121.7, kg, 07/13/23 23:42:00 EST, Weight Dosing Capillary Glucose POC Influenza A&B Ag Rapid COVID Antigen ([facility]) Resp.syn.virus (Rsv) XR Chest Single View Disposition Plan Discharge Prescription List Prescriptions azithromycin 250 mg Tab, 250 mg= 1 tab(s), Oral, Daily Follow-up With When Contact Information Hazel Grady In 7 days 07/21/2023 EST [address] [place] [id number] [facility] (2) Additional Instructions: Patient Education Viral [...] 94 mg/dL (07/14/23 02:00:00) POC Device SN: [id number] (07/14/23 02:00:00) POC User ID: [id number] (07/14/23 02:00:00) POC Username: POC Username (07/14/23 [...] DO 07/14/2023 01:56:22 Normal [facility] Comment on above: Result Comment: [...] Follow these instructions at home: ? Take pjrl-xjx-ibhfquk and prescription medicines only as told by [...] provider. Document Revised: 11/03/2021 Document Reviewed: 11/03/2021 [employer] Patient Education ? 2022 [employer] Infectious Disease Viral Illness, Adult Viruses [...] content not included)... Normal [facility] ED Patient Summaryon 023 ED Patient Summary [address] [address] Patient Discharge Instructions Person Information Name: FRANCES DOE Age: 17 Years Arrival Date: 07/13/2023 23:32:13 Discharge Diagnosis: AOM (acute otitis media); Viral illness Primary Care Physician: Hazel Grady MD Provider Information Primary Provider: Dom Sarmiento DO Advanced Senior Oracle Database Developer:None The exam and treatment you received in the Emergency Department were for an urgent problem and are not intended as complete care. It is important that you follow up with a doctor, nurse practitioner, or physician?s payroll assistant for ongoing care. If your symptoms [...] Follow-up Instructions: With: Address: When: Hazel Grady [address] [place] [id number] [facility] (2) In 7 days 07/21/2023 In the event that this physician does not participate in your insurance network, please consult with your insurance company to find a nearby participating provider. Patient Education Materials: Viral Illness, Adult; Otitis Media, Adult A MESSAGE TO ALL PATIENTS REGARDING OPIOIDS PRESCRIPTION OPIOIDS: WHAT YOU NEED TO KNOW Prescription opioids can be used to help relieve sznccgjn-uj-cxvdsa pain and are often prescribed following a [...] be struggling with addiction, tell your health medicare contact specialist and ask for guidance or call [facility]?S National Helpline at 1-931-113-VMWN. (more content not included)... Normal [facility] Influenza A&B Agon 3 Influenzae A Ag Negative Normal Negative [facility] Comment on above: Performed By: #### 2 [id number] #### [facility] [address] [place] [address] Influenzae B Ag Negative Normal Negative [facility] Comment on above: Result Comment: Test sensitivity and specificity vary for age group, specimen type, antigen types, and prevalence of disease. Test results must be evaluated in conjunction with other clinical data available to the physician. Individuals who received nasally administered Influenza A vaccine may have positive test results up to 3 days after vaccination. Performed By: #### 2 [id number] #### [facility] [address] [place] [address] Prescriptions/Work Noteson 1 09-14-2022 Prescriptions/Work Notes [id number] Normal [facility] Rapid COVID Antigen ([facility])on 07-14-2023 Rapid COV Int NEG Ctl Pass Normal [facility] Comment on above: Performed By: #### 2 [id number] #### [facility] [address] [place] [address] Rapid COV Int POS Ctl Pass Normal [facility] Comment on above: Performed By: #### 2 [id number] #### [facility] [address] [place] [address] SARS-CoV+SARS-CoV-2 (COVID-19) Ag IA.rapid Ql (Resp) Not detected Normal Not Detected [facility] Comment on above: Result Comment: The [employer]? System for Rapid Detection of SARS-CoV-2 is [...] other viruses or pathogens; and, in the [facility], this test is only authorized for the duration of the declaration that circumstances exist justifying the authorization of emergency use of in vitro diagnostics for detection and/or diagnosis of the virus that causes COVID-19 under Section 564(b)(1) of the Act, 21 U.S.C. ? 360bbb-3(b)(1), unless the authorization is terminated or revoked sooner. Performed By: #### 2 [id number] #### [facility] [address] [place] [id number] Resp.syn.virus (Rsv)on 07-14 RSV Ag IA.rapid Ql (Nph) Negative Normal Negative [facility] Comment on above: Performed By: #### 2 [id number] #### [facility] [address] [place] [address] XR Chest Single Viewon 07-14 XR Chest [...] DAP = na Normal [facility] [employer] 12-24-2022 Forms [id number] 0CD:127 Normal [facility] Vital Signs Date Time Vital Sign Value Performing Clinician Facility 12-28-2024 10:20-0400 Body weight 139.82 kg Yogesh Ally DO Work Phone: [facility] 12-28-2024 10:20-0400 Diastolic blood pressure 82 mm[Hg] Yogesh Ally DO Work Phone: [facility] 12-28-2024 10:20-0400 Systolic blood pressure 126 mm[Hg] Yogesh Ally DO Work Phone: [facility] 12-06-2024 13:53-0400 Body weight 139.71 kg Lynette Gunter SOFTWARE INSTALLER Work Phone: [facility] 12-06-2024 13:53-0400 Diastolic blood pressure 70 mm[Hg] Lynette Gunter SOFTWARE INSTALLER Work Phone: [facility] 12-06-2024 13:53-0400 Systolic blood pressure 114 mm[Hg] Lynette Lyric FUNEZ Work Phone: [facility] 11-15-2024 10:36-0400 Body weight 139.16 kg Yogesh Ally DO Work Phone: [facility] 11-15-2024 10:36-0400 Diastolic blood pressure 78 mm[Hg] Yogesh Ally DO Work Phone: [facility] 11-15-2024 10:36-0400 Systolic blood pressure 130 mm[Hg] Yogesh Ally DO Work Phone: [facility] 10-18-2024 14:37-0400 Body weight 136.99 kg Maryanne Covarrubias PA Work Phone: [facility] 10-18-2024 14:37-0400 Diastolic blood pressure 78 mm[Hg] Maryanne Covarrubias PA Work Phone: [facility] 10-18-2024 14:37-0400 Systolic blood pressure 130 mm[Hg] Maryanne Junedale PA Work Phone: [facility] 09-21-2024 16:43-0500 Body weight 136.9 kg Maryanne Miesha PA Work Phone: [facility] 09-21-2024 16:43-0500 Diastolic blood pressure 76 mm[Hg] Maryanne Junedale PA Work Phone: [facility] 09-21-2024 16:43-0500 Systolic blood pressure 118 mm[Hg] Maryanne Miesha PA Work Phone: [facility] 08-17-2024 11:52-0500 Body weight 138.8 kg Yogesh Ally DO Work Phone: [facility] 08-17-2024 11:52-0500 Diastolic blood pressure 78 mm[Hg] Yogesh Ally DO Work Phone: [facility] 08-17-2024 11:52-0500 Systolic blood pressure 122 mm[Hg] Yogesh Ally DO Work Phone: [facility] 07-18-2024 11:15-0500 Body weight 139.71 kg [facility] Nurse [facility] 07-18-2024 11:15-0500 Diastolic blood pressure 74 mm[Hg] [facility] Nurse [facility] 07-18-2024 11:15-0500 Systolic blood pressure 118 mm[Hg] [facility] Nurse [facility] 09-17-2023 09:35-0500 Body height 175.26 cm Tiesha Flood Other [facility] Other 09-17-2023 09:35-0500 Body mass index (BMI) [Ratio] 40.16 kg/m2 Tiesha Flood Other [facility] Other 09-17-2023 09:35-0500 Body temperature 99.2 [degF] Tiesha Flood Other [facility] Other 09-17-2023 09:35-0500 Body weight 123.38 kg Tiesha Flood Other [facility] Other 09-17-2023 09:35-0500 Respiratory rate 18 /min Tiesha Flood Other [facility] Other 09-17-2023 09:35-0500 SaO2% (BldA) [Mass fraction] 97 % Tiesha Flood Other [facility] Other 09-02-2023 09:30-0500 Body height 175.26 cm Sheree Cheung Other [facility] Other 09-02-2023 09:30-0500 Body mass index (BMI) [Ratio] 40.21 kg/m2 Sheree Cheung Other [facility] Other 09-02-2023 09:30-0500 Body weight 123.52 kg Sheree Cheung Other [facility] Other 09-02-2023 09:30-0500 Diastolic blood pressure 78 mm[Hg] Sheree Jonatan Other [facility] Other 09-02-2023 09:30-0500 Respiratory rate 18 /min Sheree Jonatan Other [facility] Other 09-02-2023 09:30-0500 SaO2% (BldA) [Mass fraction] 97 % Sheree Jonatan Other [facility] Other 09-02-2023 09:30-0500 Systolic blood pressure 120 mm[Hg] Sheree Jonatan Other [facility] Other 07-27-2023 09:30-0500 Body height 175.26 cm Sheree Jonatan Other [facility] Other 07-27-2023 09:30-0500 Body mass index (BMI) [Ratio] 40.02 kg/m2 Sheree Jonatan Other [facility] Other 07-27-2023 09:30-0500 Body weight 122.93 kg Sheree Jonatan Other [facility] Other 07-27-2023 09:30-0500 Diastolic blood pressure 76 mm[Hg] Sheree Jonatan Other [facility] Other 07-27-2023 09:30-0500 Respiratory rate 16 /min Sheree Jonatan Other [facility] Other 07-27-2023 09:30-0500 SaO2% (BldA) [Mass fraction] 98 % Sheree De Leónkevin Other [facility] Other 07-27-2023 09:30-0500 Systolic blood pressure 120 mm[Hg] Sheree Cheung Other [facility] Other 01-21-2022 15:35-0400 Body height 175.26 cm Almaz Deanna Other [facility] Other 01-21-2022 15:35-0400 Body mass index (BMI) [Ratio] 30.86 kg/m2 Almaz Deanna Other [facility] Other 01-21-2022 15:35-0400 Body temperature 97.3 [degF] Almaz Benavidezmond Other [facility] Other 01-21-2022 15:35-0400 Body weight 94.8 kg Almaz Deanna Other [facility] Other 01-21-2022 15:35-0400 Diastolic blood pressure 73 mm[Hg] Almaz Deanna Other [facility] Other 01-21-2022 15:35-0400 Respiratory rate 16 /min Almaz Deanna Other [facility] Other 01-21-2022 15:35-0400 SaO2% (BldA) [Mass fraction] 97 % Almaz Deanna Other [facility] Other 01-21-2022 15:35-0400 Systolic blood pressure 133 mm[Hg] Almaz Deanna Other [facility] Other Encounters Encounter Date Encounter Type Care Provider Facility Start: 01-06-2025 End: 01-06-2025 Clinisync Result Encounter Yogesh Ally DO Work Phone: [facility] Unsolicited Start: 01-06-2025 End: 01-06-2025 Clinisync Result Encounter Yogesh Ally DO Work [...] 12-06-2024 End: 12-06-2024 Bamboo flowsheet Lynette Gunter SOFTWARE INSTALLER Work Phone: [facility] Start: 12-06-2024 End: 12-06-2024 Bamboo flowsheet Lynette Mariscalerly SOFTWARE INSTALLER Work Phone: [facility] Start: 12-06-2024 End: 12-06-2024 flow sheet Lynette Lyric SOFTWARE INSTALLER Work Phone: [facility] Comment on [...] Start: 09-21-2024 End: 09-21-2024 flow sheet Maryanne FOLWER Work Phone: [facility] Comment on above: STD exposure; Vaginal discharge; Second trimester ; 16 weeks gestation of ; Screening, , for anatomic survey; Diabetes mellitus screening Start: 09-21-2024 End: 09-21-2024 ambulatory MARYANNE COVARRUBIAS Not Available Start: 09-21-2024 End: 09-21-2024 Bamboo flowsheet Maryanne FOWLER Work Phone: [facility] Start: 09-21-2024 End: 09-23-2024 Bamboo flowsheet Maryanne Covarrubias PA Work Phone: [facility] Start: 09-21-2024 [...] Start: 08-05-2024 End: 08-05-2024 ambulatory Sheree Cheung Facility:[facility] Start: 07-18-2024 End: 07-18-2024 ambulatory [facility] Ally Nurse [facility] Comment on above: GA: 7w3d Start: 06-26-2024 End: 06-26-2024 Clinisync Result Encounter Maryanne Miesha FOWLER Work Phone: [facility] Unsolicited Start: 06-26-2024 End: 06-26-2024 Clinisync Result Encounter Maryanne Miesha FOWLER Work Phone: [facility] Unsolicited Start: 09-17-2023 End: 09-17-2023 ambulatory Tiesha Flood Other [facility] Other Start: 09-17-2023 Office outpatient vi sit 15 minutes Tiesha Flood [facility] [place] Start: 09-02-2023 End: 09-02-2023 ambulatory Sheree Cheung Other [facility] Other Start: 09-02-2023 Office outpatient vi sit 25 minutes Sheree Cheung [facility] [place] Start: 07-27-2023 End: 07-27-2023 ambulatory Sheree Cheung Other [facility] Other Start: 07-27-2023 Encounter for genera l adult medical examination without abnormal findings Sheree Cheung [facility] [place] Start: 07-27-2023 Initial preventive medicine new pt age 18-39yrs Sheree Cheung [facility] [place] Start: 07-14-2023 End: 07-14-2023 Emergency department patient visit Dom Sarmiento Facility:[facility] Start: 12-24-2022 ambulatory Dom Sarmiento Facility: [facility] [place] Start: 04-06-2022 End: 04-06-2022 ambulatory HAZEL GRADY Facility: Start: 01-21-2022 (URG) Urgent Care Visit Almaz romero [facility] [place] Start: 01-21-2022 End: 01-21-2022 ambulatory Almaz Huerta Other [facility] Other Procedures Date Procedure Procedure Detail Performing Clinician Start: 01-06-2025 AMNISURE Yogesh Fazi o DO Work Phone: Start: 01-03-2025 US OB BPP W NON-STRESS Yogesh Ally DO Work Phone: Start: 12-28-2024 Urnls dip stick/tabl et rgnt non-auto w/o micrscp Yogesh Ally DO Work Phone: Start: 12-16-2024 ALL CBC WITH AUTO DIFF Yogesh Ally DO Work Phone: Start: 12-15-2024 [facility] UA (CLEAN/CATCH) RESIN COATER/MICRO IF IND. Yogesh Ally DO Work Phone: [...] dip stick/tablet rgnt non-auto w/o micrscp Yogesh Canales DO Work Phone: Start: 06-26-2024 [facility] PREG QUANT HCG Maryanne FOWLER Work Phone: Plan of Treatment Date Care Activity Detail Author Start: 01-11-2025 End: 01-11-2025 Patient encounter procedure 01/11/2025 1:30 PM EDT [facility] [address] [facility] [place] [address] Maryanne Covarrubias PA [address] [place], [place] [address] [place] [address] [facility] Start: 12-28-2024 End: 06-30-2025 [...] AM EDT Routine [facility] [address] [place] [address] Yogesh Canales DO [address] [place], [place] [address] [place], [place] [id number] [facility] Start: 12-28-2024 End: 12-28-2024 Professional / ancillary services management 12/28/2024 9:00 AM EDT Ancillary Procedure [facility] [address] [place] [address] [facility] Start: 12-06-2024 End: [...] mellitus screening Expected: 11/15/2024 (Approximate), Expires: 11/15/2025 [facility] Work Phone: Comment on above: Expected: 11/15/2024 (Approximate), Expires: 11/15/2025 Start: 11-15-2024 End: 11-15-2025 Measurement of glucose 1 hour after glucose challenge for glucose tolerance test Glucose tolerance, 1 hour Lab Routine Diabetes mellitus screening Expected: 11/15/2024 (Approximate), Expires: 11/15/2025 [facility] Comment on above: Expected: 11/15/2024 (Approximate), Expires: 11/15/2025 Start: 11-15-2024 End: 11-15-2024 Patient encounter procedure 11/15/2024 1:10 PM EDT Routine [facility] [address] [place] [id number] Yogesh Canales DO [address] [place] [address] [facility] Start: 10-18-2024 End: 10-18-2024 Patient encounter procedure 10/18/2024 2:30 PM EDT Routine [facility] [address] [place] [address] Maryanne Covarrubias PA [address] [place], [place] [id number] [facility] Start: 10-18-2024 End: 10-18-2024 Professional / ancillary services management 10/18/2024 1:00 PM EDT Ancillary Procedure [facility] [address] [place] [address] [facility] Start: 09-21-2024 End: 09-21-2024 Patient encounter procedure 09/21/2024 3:20 PM EST Routine [facility] [address] [place] [address] Maryanne Covarrubias PA [address] [place] [address] Arrived [facility] Comment on above: Arrived Start: 09-21-2024 End: 11-19-2024 Alpha fetoprotein, maternal Alpha fetoprotein, maternal Lab Routine Screening, , for anatomic survey Expected: 09/21/2024 (Approximate), Expires: 11/19/2024 [facility] Comment on above: Expected: 09/21/2024 (Approximate), Expires: 11/19/2024 Start: 09-21-2024 End: 09-21-2025 Measurement of glucose 1 hour after glucose challenge for glucose tolerance test Glucose tolerance, 1 hour Lab Routine Diabetes mellitus screening Expected: 09/21/2024 (Approximate), Expires: 09/21/2025 [facility] Comment on above: Expected: 09/21/2024 (Approximate), Expires: 09/21/2025 Start: 09-21-2024 End: 09-21-2025 US for US OB 14+ weeks anatomy scan Imaging Routine Screening, , for anatomic survey Expected: 09/21/2024, Expires: 09/21/2025 [facility] Comment on above: Expected: 09/21/2024 , Expires: 09/21/2025 Start: 09-21-2024 End: 09-21-2024 Patient encounter procedure 09/21/2024 9:30 AM EST Routine [facility] [address] [place] [address] Maryanne Covarrubias PA [address] [place] [address] [facility] Start: 08-17-2024 End: 08-17-2024 [facility] Comment on above: Arrived Start: 07-18-2024 End: 07-18-2025 ABO/Rh ABO/Rh Lab Routine Missed menses , unspecified gestational age Expected: 07/18/2024 (Approximate), Expires: 07/18/2025 [facility] [...] AM EST Initial [facility] [address] [place] [address] [facility] Start: 07-18-2024 End: 07-18-2024 Professional / ancillary services management 07/18/2024 10:00 AM EST Ancillary Procedure [facility] [address] [place] [address] [facility] Bacteria identified in Urine by Culture Urine culture Microbiology Routine Missed menses Ordered: 07/18/2024 [facility] Comment on above: Ordered: 07/18/2024 CBC W Auto Differential panel - Blood CBC and differential Lab Routine Missed menses , unspecified gestational age Ordered: 07/18/2024 [facility] Comment on above: Ordered: 07/18/2024 CHLAMYDIA TRACHOMATI S (GENITO/STI) CHLAMYDIA TRACHOMATIS (GENITO/STI) Lab Routine STD exposure Vaginal discharge Ordered: 09/21/2024 [facility] Comment on above: Ordered: 09/21/2024 Hemoglobin A1c/Hemoglobin.total in Blood Hemoglobin A1c Lab Routine Missed menses , unspecified gestational age Ordered: 07/18/2024 [facility] Comment on above: Ordered: 07/18/2024 Hepatitis B virus surface Ag [Presence] in Serum or Plasma by Immunoassay Hepatitis B surface antigen Lab Routine Missed menses , unspecified gestational age Ordered: 07/18/2024 [facility] Comment on above: Ordered: 07/18/2024 Hepatitis C virus Ab [Presence] in Serum or Plasma by Immunoassay Hepatitis C antibody Lab Routine Missed menses , unspecified gestational age Ordered: 07/18/2024 [facility] Comment on above: Ordered: 07/18/2024 HIV-1/HIV-2 antigen/antibody combination immunoassay HIV-1 and HIV-2 antibodies Lab Routine Missed menses , unspecified gestational age Ordered: 07/18/2024 [facility] Comment on above: Ordered: 07/18/2024 Neisseria gonorrhoea e DNA [Presence] in Unspecified specimen by ISAURO with probe detection Neisseria gonorrhea DNA probe, direct Lab Routine STD exposure Vaginal discharge Ordered: 09/21/2024 [facility] Comment on above: Ordered: 09/21/2024 Reagin Ab [Presence] in Serum by RPR RPR Lab Routine Missed menses , unspecified gestational age Ordered: 07/18/2024 [facility] Comment on above: Ordered: 07/18/2024 Rubella antibody, IgG Rubella an tibody, IgG Lab Routine Missed menses , unspecified gestational age Ordered: 07/18/2024 [facility] Comment on above: Ordered: 07/18/2024 SURESWAB(R) ADVANCED VAGINITIS PLUS, TMA SURESWAB(R) ADVANCED VAGINITIS PLUS, TMA Pathology and Cytology Routine STD exposure Vaginal discharge Ordered: 09/21/2024 [facility] Work Phone: Comment on above: Ordered: 09/21/2024 Immunizations Immunization Date Immunization Notes Care Provider Chase sequeira 03-17-2021 Human Papillomavirus 9-valent vaccine Almaz Deanna Other [facility] Other 02-10-2021 Do not use COVID-19 Pfizer 2 dose Almaz Deanna Other [facility] Other 08-04-2016 Human Papillomavirus 9-valent vaccine Almaz Deanna Other [facility] Other 05-22-2016 Human Papillomavirus 9-valent vaccine Almaz Deanna Other [facility] Other 07-29-2015 hepatitis A vaccine, pediatric/adolescent dosage, 2 dose schedule Almaz Deanna Other [facility] Other 04-02-2007 hepatitis A vaccine, pediatric/adolescent dosage, 2 dose schedule Almaz Deanna Other [facility] Other 04-14-2005 diphtheria, tetanus toxoids and acellular pertussis vaccine, 5 pertussis antigens Almaz Deanna Other [facility] Other 10-09-2004 measles, mumps and rubella virus vaccine Almaz Deanna Other [facility] Other 04-21-2004 DTaP-hepatitis B and poliovirus vaccine Almaz Deanna Other [facility] Other 04-21-2004 haemophilus influenz ae type b vaccine, PRP-T conjugate Almaz Deanna Other [facility] Other 02-19-2004 DTaP-hepatitis B and poliovirus vaccine Almaz Deanna Other [facility] Other 02-19-2004 haemophilus influenz ae type b vaccine, PRP-T conjugate Almaz Deanna Other [facility] Other 2003 DTaP-hepatitis B and poliovirus vaccine Almaz Deanna Other [facility] Other 2003 haemophilus influenz ae type b vaccine, PRP-T conjugate Almaz Deanna Other [facility] Other 2003 hepatitis B vaccine, pediatric or pediatric/adolescent dosage Almaz Deanna Other [facility] Other Payers Date Payer Category Payer Self-pay 2021 Private Health Insurance 2003 Unknown [id number] 2.16.8 [id number] 2003 Unknown [id number] 2.16.84 [id number] 2003 Unknown [id number] 2.16.84 [id number] 2003 Unknown [id number] 2.16.84 [id number] 2003 Unknown [id number] 2.16.84 [id number] 2003 Unknown [id number] 2.16.84 0.1.981993.3.579.2.1259 2003 Unknown [id number] 2.16.84 0.1.350306.3.579.2.1259 2003 Unknown [id number] 2.16.84 0.1.117033.3.579.2.1259 2003 Unknown [id number] 2.16.84 0.1.800732.3.579.2.1259 2003 Unknown [id number] 2.16.84 0.1.380619.3.579.2.1259 2003 Unknown [id number] 2.16.84 0.1.089513.3.579.2.1259 1959 Unknown [id number] 1959 Unknown [id number] 1959 Unknown [id number] 2.16.84 [id number] Unknown [id number] 2.16.8 [id number] Social History Date Type Detail Facility Unknown if ever smoked [facility] Other Sex Assigned At [facility] Other Tobacco smoking status [facility] Tobacco smoking consumption unknown [facility] Start: 2003 Sex assigned at Not on file [facility]: [facility]10[facility]20[facility] Notes 01-21-2022 to 12-28-2024 Vicky Rodríguez LPN - 12/28/2024 9:50 AM Luca Gunter NP - 12/06/2024 1:20 PM Juan [...] nursing note reviewed. Exam conducted with a pump operator present. Vitals: There is no height [...] Yogesh Canales DO documented in this encounter [facility] 12-06-2024 History of Presen t illness Narrative [...] nursing note reviewed. Exam conducted with a pump operator present. Vitals: There is no height [...] Lynette Gunter NP documented in this encounter [facility] 11-15-2024 History of Presen t illness [...] nursing note reviewed. Exam conducted with a pump operator present. Vitals: There is no height [...] Yogesh Canales DO documented in this encounter [facility] 10-18-2024 History of Presen t illness [...] of: JANETH Ji documented in this encounter [facility] 09-21-2024 History of Presen t illness [...] obtained without difficulty and patient was given [facility] order to have obtained. Orders Placed This [...] of: JANETH Ji documented in this encounter [facility] 08-17-2024 History of Presen t illness [...] nursing note reviewed. Exam conducted with a pump operator present. Vitals: There is no height [...] or undercooked meat, and stay away from [facility]. Patient has been consulted regarding any further do's and don'ts of . Patient voiced understanding and all questions and concerns were answered. Advised patient to take daily Aspirin 81mg . Orders Placed This Encounter Procedures POCT urinalysis dipstick manually resulted Follow Up: Patient is to return in 4 weeks for routine OB appointment. Documented by Vicky Rodríguez LPN on behalf of: Yogesh Cnaales DO documented in this encounter [facility] 07-18-2024 History of Presen t illness [...] or undercooked meat, and stay away from [facility]. Patient has also been advised to [...] Jazmyne Oliveira MA documented in this encounter [facility] 09-17-2023 Evaluation note Encounter Date Diagnosis [...] understanding and is agreeable to treatment plan. [facility] Other 01-25-2024 Evaluation note* Encounter Date Diagnosis [...] and no personal patient information was compromised. [facility] Other 12-19-2023 Evaluation note* Encounter Date Diagnosis [...] (ICD-10 - F32.1) See above treatment plan. [facility] Other 06-15-2022 Evaluation note* Encounter Date Diagnosis Assessment Notes Treatment Notes Treatment Clinical Notes Jan, Pre-employment examination (ICD-10 - Z02.1) [facility] Other Evaluation note* Diagnosis Missed menses , [...] Reported* Type Description Date Medical History vertigo [facility] Other Reason for referral (narrative)* Reason Refer to [facility] or counseling for anxiety and depression Diagnosis 1 MATTHIAS (generalized anx iety disorder) (F41.1) Referral Organization [facility] Carolyne Wick Referring Provider First Name Sheree Referring Provider Last Name Jonatan Referring Provider Specialty Nurse Pract mitchel Referred Provider Specialty Psychiatry Referral Priority Routine [facility] Other Summary Purpose Family History No Family [...] and content) DATE CREATED AUTHOR 04/10/2022 [facility] DATE CREATED AUTHOR AUTHOR'S ORGANIZ ATION 08/13/2023 [facility] DATE CREATED AUTHOR AUTHOR'S ORGANIZ ATION 08/09/2024 [facility] DATE CREATED AUTHOR AUTHOR'S ORGANIZ ATION 01/03/2025 [facility] EPIC Care Teams (unrecognized sec tion and content) Tube Machine Operator Relationship Specialty Start Date End Date Hazel [place] [address] PCP - General Family Medicine 07/18/24 Tube Machine Operator Relationship Specialty Start Date End Date Hazel Grady MD [address] [place] [address] PCP - General Family Medicine 07/18/24 Tube Machine Operator Relationship Specialty Start Date End Date Hazel Grady MD [address] [place] [address] PCP - General Family Medicine 07/18/24 Tube Machine Operator Relationship Specialty Start Date End Date Hazel Grady MD [address] [place] [address] PCP - General Family Medicine 07/18/24 Tube Machine Operator Relationship Specialty Start Date End Date Hazel Grady MD [address] [place] [address] PCP - General Family Medicine 07/18/24 Tube Machine Operator Relationship Specialty Start Date End Date Hazel Grady MD [address] [place] [address] PCP - General Family Medicine 07/18/24 Tube Machine Operator Relationship Specialty Start Date End Date Hazel Grady MD [address] [place] [address] PCP - General Family Medicine 07/18/24 Tube Machine Operator Relationship Specialty Start Date End Date Hazel Grady MD [address] [place] [address] PCP - General Family Medicine 07/18/24 Tube Machine Operator Relationship Specialty Start Date End Date Hazel Grady MD [address] [place] [address] PCP - General Family Medicine 07/18/24 Tube Machine Operator Relationship Specialty Start Date End Date Hazel Grady MD [address] [place] [address] PCP - General Family Medicine 07/18/24 FOR [...] BE BASED ON THE PRIMARY CLINICAL RECORDS. [employer] [facility]. provides no warranty or guarantee of the accuracy or completeness of information in this document.
[2025-01-10 10:24] VITALS: BP 116/54; PULSE 104
== END 2025-01-10 11:05 | disposition home or self-care (01) ==
LOC: US 09:49 → FBC 09:51
PROVIDERS: PCP Family Medicine; Visit Provider Obstetrics & Gynecology
DX: O41.03X1 Oligohydramnios, third trimester, fetus 1 (principal)
CPT/HCPCS: 76818

== ENCOUNTER 2025-01-11 14:03 | Outpatient (OUT) | payer OTHER, SELFPAY ==
--- OUTSIDE RECORDS SUMMARY | 2023-08-23 10:15 | XMS_ITS ---
Author Organization [facility] Address [address] [place] [address] Care Team Providers Care Rn Research Name Role Phone Amanda Wilson Primary Care Provider [phone] REASON FOR VISIT NEW PT REFERRAL FROM [facility] Encounters Encounter Location Date Provider Diagnosis [facility] [address] [place] [address] 08/23/2023 Amanda Wilson Plan Of Treatment No Information Progress Notes * YUMIKO DOEEDOB: [birth year] (19 yo F)Acc No.[id number]:08/23/2023 Consult - Patient Patient: JIMBO PICHARDO Provider: JOSEPH Dumont :2005 A ge:17 Y S ex:Female Date:08/23/2023 Address:[address], [place], [id number] Subjective: * Chief Complaints: * 1 . NEW PT REFERRAL FROM [facility]. Objective: Therapeutic Interventions: Assessment: Plan: * Images: Care Plan Details* * Electronic signature of JOSEPH Sheikh on 01/11/2025 at 02:06 PM EDT Sign off status: Pending * Provider: JOSEPH Dumont Date: 08/23/2023 Generated for Jessyi ng/Faxing/eTransmitting on: 0 01/11/2025 02:06 PM EDT
--- OUTSIDE RECORDS SUMMARY | 2024-12-28 09:00 | XMS_ITS | Encounter Summary ---
Author Organization [facility] Address [address] [place] [address] Care Team Providers Care Retail Manager In Training Name Role Phone David Awan MD Primary Care Provider [phone] Encounter Details Date Type Department Care Team (Latest Contact Info) Description 12/28/2024 9:00 AM EDT Ancillary Procedure [facility] [address] [place], [place] [address] [address] size inconsistent with dates Social History Tobacco Use Types Packs/Day Years Used Date Smoking Tobacco: Never Assessed Estimated Date of Delivery Comme nts Yes 03/03/2025 Based on Ultraso und Sex and Gender Information Value Date Recorded Sex Assigned at Not on file Legal Sex Female 10:07 AM EST Gender Identity Not on file Sexual Orientation Not on file documented as of this encounter Plan of Treatment Upcoming Encounters Date Type Department Care Team (Late st Contact Info) Description 01/25/2025 8:40 AM EDT Routine [facility] [place] [address] Cb Canales, DO [facility] [place] [address] documented as of this encounter Procedures Procedure Name Priority Date/Time Associated Diagnosis Comments US OB FOLLOW UP TRANSABDOMINAL APPROACH Routine 12/28/2024 9:43 AM EDT size inconsistent with dates documented in this encounter Results * US OB follow up transabdominal approach (12/28/2024 9:43 AM EDT) Anatomical Region Laterality Modality Body Ultrasound 12/29/2024 12:1 8 PM EDT Narrative 12/29/2024 12:18 PM EDT EXAM: US OB FOLLOW UP TRANSABDOMINAL APPROACH HISTORY: Inconsistent size, PIH. COMPARISON: Ob ultrasound 11/15/2024. TECHNIQUE: Two-dimensional transabdominal grayscale ultrasound imaging of the pelvis was performed. FINDINGS: Gestation: Single Presentation: Cephalic Cardiac Activity: 150 beats per minute Placental Location: Anterior with no sonographic abnormalities identified. Amniotic Fluid Index: 7.2 cm MEASUREMENTS: BPD: 8.0 cm EGA: 32 weeks 2 days HC: 30.2 cm EGA: 33 weeks 4 days AC: 27.9 cm EGA: 32 weeks 0 days FL: 5.9 cm EGA: 30 weeks 6 days HC/AC Ratio: 1.08 The gestational age by today's ultrasound is 32 weeks 1 days (+/- 16 days gestation). Estimated Weight: 1840 grams, +/- 276 grams ( 4 lb 1 oz). Weight Percentile for gestational age: 75 % IMPRESSION: 1. Single, live intrauterine gestation 30 weeks, 5 days by LMP. Today's ultrasound measurements correlate with a gestational age of 32 weeks 1 days. Estimated weight is 1840 grams, +/- 276 grams ( 4 lb 1 oz) which correlates to 75 %. MONIQUE is 02/21/2025. Interpreted by: Electronically signed by DOROTHY DUCKWORTH II, MD, PHD at 29-Dec-2024 12:17:[address] [facility] Procedure Note Dorothy Duckworth MD - 12/29/2024 EXAM: US OB FOLLOW UP TRANSABDOMINAL APPROACH HISTORY: Inconsistent size, PIH. COMPARISON: Ob ultrasound 11/15/2024. TECHNIQUE: Two-dimensional transabdominal grayscale ultrasound imaging ofthe pelvis was performed. FINDINGS: Gestation: Single Presentation: Cephalic Cardiac Activity: 150 beats per minute Placental Location: Anterior with no sonographic abnormalitiesidentified. Amniotic Fluid Index: 7.2 cm MEASUREMENTS: BPD: 8.0 cm EGA: 32 weeks 2 days HC: 30.2 cm EGA: 33 weeks 4 days AC: 27.9 cm EGA: 32 weeks 0 days FL: 5.9 cm EGA: 30 weeks 6 days HC/AC Ratio: 1.08 The gestational age by today's ultrasound is 32 weeks 1 days (+/- 16 daysgestation). Estimated Weight: 1840 grams, +/- 276 grams ( 4 lb 1 oz). Weight Percentile for gestational age: 75 % IMPRESSION: 1. Single, live intrauterine gestation 30 weeks, 5 days by LMP. Today'sultrasound measurements correlate with a gestational age of 32 weeks 1days. Estimated weight is 1840 grams, +/- 276 grams ( 4 lb 1 oz)which correlates to 75 %. MONIQUE is 02/21/2025. Interpreted by: Electronically signed by DOROTYH DUCKWORTH II, MD, PHD [id number] 12:17:[address] [facility] us Lynette Gunter DIAL MARKER IMG OB US PROCEDURES Final Re sult documented in this encounter Visit Diagnoses Diagnosis size inconsistent with dates documented in this encounter Care Teams Retail Manager In Training Relationship Specialty Start Date End Date David wAan MD [address] [place] [address] PCP - General Family Medicine 07/18/24 documented as of this encounter
--- OUTSIDE RECORDS SUMMARY | 2024-12-28 09:50 | XMS_ITS | Encounter Summary ---
Author Organization [facility] Address [address] [facility] [place] [address] Care Team Providers Care Leather Goods Sales Representative Name Role Phone David Awan MD Primary Care Provider [phone] Reason for Visit * Reason Comments Routine Visit Encounter Details Date Type Department Care Team (Late st Contact Info) Description 12/28/2024 9:50 AM EDT Routine [facility] [address] [place] [address] Cb Canales, DO [address] [facility] [place] [address] 30 weeks gestation of ; Third trimester ; Oligohydramnios in third trimester, fetus 1 of multiple gestation Social History Tobacco Use Types Packs/Day Years Used Date Smoking Tobacco: Never Assessed Estimated Date of Delivery Comme nts Yes 03/03/2025 Based on Ultraso und Sex and Gender Information Value Date Recorded Sex Assigned at Not on file Legal Sex Female 10:07 AM EST Gender Identity Not on file Sexual Orientation Not on file documented as of this encounter Last Filed Vital Signs Vital Sign Reading Time Taken Comments Blood Pressure 126/82 12/28/2024 10:20 AM EDT Pulse - - Temperature - - Respiratory Rate - - Oxygen Saturation - - Inhaled Oxygen Concentration - - Weight 140 kg (308 lb 4 oz) 12/28/2024 10:20 AM EDT Height - - Body Mass Index - - documented in this encounter Progress Notes * Vicky Rodríguez LPN - 12/28/2024 9:50 AM EDT Reason for Appointment: Patient ID: Frances Bustamante is a 19 y.o. female who presents [...] nursing note reviewed. Exam conducted with a machine operator hop worker present. Vitals: There is no height or weight on file to calculate BMI. BP: 126/82 Patient's last menstrual period was 05/09/2024. ASSESSMENT & PLAN ICD-10-CM 1. 30 weeks gestation of Z3A.30 POCT urinalysis dipstick manually resulted 2. Third trimester Z34.93 Patient presents today for a routine obstetrics appointment. Patient is currently 30w5d with a Estimated Date of Delivery: 03/03/25. Patient had growth scan performed today prior to appointment. Patient to RTC in 2 weeks for routine OB appointment. 10:54am Dr. Canales called patient and LMOM to informed her that he received the results of ultrasound and she is to start NST/BPP due to low JEROD. Advised patient the nursing would reach out to her to explain process for NST/BPP. Patient to call office with concerns/questions as well. Nursing talked to pt about NST/BPP. Orders sent to [facility] Documented by Vicky Rodríguez LPN on behalf of: Cb Canales DO documented in this encounter Plan of Treatment Upcoming Encounters Date Type Department Care Team (Late st Contact Info) Description 01/25/2025 8:40 AM EDT Routine [facility] [address] [place] [phone] Cb Canales DO [address] [place] [address] Scheduled Orders Name Type Priority Associated Diagnoses Orde r Schedule US biophysical profile w non stress test Imaging Routine Oligohydramnios in third trimester, fetus 1 of multiple gestation Expected: 12/28/2024 (Approximate), Expires: 06/30/2025 documented as of this encounter Procedures Procedure Name Priority Date/Time Associated Diagnosis Comments POCT URINALYSIS DIPSTICK Routine 12/28/2024 10:23 AM EDT 30 weeks gestation of documented in this encounter Results * (ABNORMAL) POCT urinalysis dipstick manually resulted (12/28/2024 10:23 AM EDT) Color, UA Yellow Clarity, UA Clear Glucose, UA Negative Negative - 1999(110) ++++ mg/dL Bilirubin, UA Negative Negative - 4(70) +++ mg/dL Ketones, UA Negative Negative - 160(16) ++++ mg/dL Spec Grav, UA 1.015 1 - 1.03 Blood, UA Negative Negative - 50 Sam/mcL pH, UA 7.0 5 - 9 Protein, UA Positive Negative - 1999(20) ++++ mg/dL Comment:30mg/dL Urobilinogen, UA 0.2 0.2 - 12 mg/dL Leukocytes, UA Positive Negative - 500+++ Supa/mcL Comment:small Nitrite, UA Negative Negative - Positive Urine 12/28/2024 10:2 3 AM EDT Cb Canales DO POINT OF CARE TEST ENTER/EDIT OR DERABLES Final Result documented in this encounter Visit Diagnoses Diagnosis 30 weeks gestation of Third trimester state, incidental Oligohydramnios in third trimester, fetus 1 of multiple gestation documented in this encounter Care Teams Leather Goods Sales Representative Relationship Specialty Start Date End Date David Awan MD [address] [place] [address] PCP - General Family Medicine 07/18/24 documented as of this encounter
--- OUTSIDE RECORDS SUMMARY | 2025-01-11 13:30 | XMS_ITS | Encounter Summary ---
Author Organization [facility] Address [address] [facility] [place] [address] Care Team Providers Care Minor League Baseball Player Name Role Phone David Awan MD Primary Care Provider [phone] Reason for Visit * Reason Comments Routine Visit Encounter Details Date Type Department Care Team (Late st Contact Info) Description 01/11/2025 1:30 PM EDT Routine [facility] BCP OB [address] [facility] [facility] [place] [address] Maryanne Whiteside PA [address] [facility] [address] [address] [facility] [address] [place], [place] [address] Third trimester ; 32 weeks gestation of ; Pruritus Social History Tobacco Use Types Packs/Day Years [...] Sign Reading Time Taken Comments Blood Pressure 122/76 01/11/2025 1:41 PM EDT Pulse - - Temperature - - Respiratory Rate - - Oxygen Saturation - - Inhaled Oxygen Concentration - - Weight 143 kg (316 lb) 01/11/2025 1:41 PM EDT Height - - Body Mass Index - - documented in this encounter Progress Notes * JANETH Ji - 01/11/2025 1:30 PM EDT Reason for Appointment: Patient ID: Frances [...] Gastrointestinal: Negative. Genitourinary: Negative. Musculoskeletal: Negative. Skin: Positive for rash. Neurological: Negative. All other systems reviewed and [...] Skin: General: Skin is warm and dry. Findings: Rash present. Comments: Diffuse papular rash,noninfectious Psychiatric: Mood and Affect: Mood normal. Behavior: Behavior normal. Thought Content: Thought content normal. Judgment: Judgment normal. Vitals and nursing note reviewed. Vitals: There is no height or weight on file to calculate BMI. BP: 122/76 Patient's last menstrual period was 05/09/2024. ASSESSMENT & PLAN ICD-10-CM 1. Third trimester Z34.93 2. 32 weeks gestation of Z3A.32 3. Pruritus L29.9 Hepatitis C antibody Hepatic function panel TSH Bile acids, total CBC and differential Hepatitis C antibody Hepatic function panel TSH Bile acids, total CBC and differential Return OB: Patient presents today for a routine obstetrics appointment. Patient is currently 32w5d . Patient states she is doing well but has complaints of being tired due to current . Patient has verbalizes frequent movement. labor precautions was discussed/given and patient was instructed to perform kick counts three times a day. Orders Placed This Encounter Procedures Hepatitis C antibody Hepatic function panel TSH Bile acids, total CBC and differential Patient complains of itching and rash, exam benign, we will send in orders for liver enzymes to be assessed Follow Up: Patient is to return to office in 2 week for routine OB appointment. Documented by JANETH Ji on behalf of: JANETH Ji documented in this encounter Plan of Treatment Upcoming Encounters Date Type Department Care Team (Late st Contact Info) Description 01/25/2025 8:40 AM EDT Routine [facility] B[facility] OB [address] [facility] [facility] [place] [address] Cb Canales, DO [address] [facility] [place] [address] Scheduled Orders Name Type Priority Associated Diagnoses Orde r Schedule Hepatitis C antibody Lab Routine Pruritus Expected: 01/11/2025 (Approximate), Expires: 01/11/2026 Hepatic function panel Lab Routine Pruritus Expected: 01/11/2025 (Approximate), Expires: 01/11/2026 TSH Lab Routine Pruritus Expected: 01/11/2025 (Approximate), Expires: 01/11/2026 Bile acids, total Lab Routine Pruritus Expected: 01/11/2025 (Approximate), Expires: 01/11/2026 CBC and differential Lab Routine Pruritus Expected: 01/11/2025 (Approximate), Expires: 01/11/2026 documented as of this encounter Visit Diagnoses Diagnosis Third trimester state, incidental 32 weeks gestation of Pruritus Unspecified pruritic disorder documented in this encounter Care Teams Minor League Baseball Player Relationship Specialty Start Date End Date David Awan MD [address] [place] [address] PCP - General Family Medicine 07/18/24 documented as of this encounter
--- OUTSIDE RECORDS SUMMARY | 2025-01-11 14:07 | XMS_ITS | Encounter Summary ---
Author Organization [facility] Address [address] [place] [address] Care Team Providers Care Computer Systems Support Specialist Name Role Phone Hazel Grady MD Primary Care Provider [phone] Encounter Details Date Type Department Care Team (Late st Contact Info) Description 07/19/2024 Clinisync Result Encounter [facility] External Department Unsolicited Yogesh Canales, DO [address] [place] [address] Social History Tobacco Use Types Packs/Day Years [...] Routine [facility] BCP OB [address] [place] [address] Yogesh Canales DO [address] [place] [address] documented as of this encounter Procedures Procedure Name Priority Date/Time Associated Diagnosis Comments US OB TRANSVAGINAL 07/19/2024 4: 28 AM EST documented in this encounter Results * US OB TRANSVAGINAL (07/19/2024 4:28 AM EST) Anatomical Region Laterality Modality Other 07/19/2024 4:28 AM EST Narrative 07/19/2024 4:31 [place] [address] Ultrasound Report Signed Patient: JIMBO DOE MR#: [id number] : 2005 Acct:[id number] Age/Sex: 18 / F ADM Date: 07/18/24 Loc: [facility] Attending Dr: Yogesh Canales D.O. Ordering Physician: Yogesh Canales D.O. Date of Service: 07/18/24 Procedure(s): US OB transvaginal Accession Number(s): [id number] cc: Yogesh Canales D.O.; HAZEL GRADY [place] [address] Patient Name: JIMBO DOE MRN: [id number] date: 2005 Sex: F Assigned Patient Location: [facility] Current Patient Location: Accession/Order Number: [id number] Exam Date: 07/18/2024 10:06 Report Date: 07/19/2024 [...] Signed By: 07/19/24 0431 DD/ 0428 TD/TT: Business Reporter: Procedure Note Radiology, Radiologist, - 07/19/2024 [place] [address] Ultrasound Report Signed Patient: JIMBO DOE RMR#: [id number] : 2005Acct:[id number] Age/Sex: 18 / FADM Date: 07/18/24 Loc: [facility] Attending Dr: Yogesh Canales D.O. Ordering Physician: Yogesh Canales D.O. Date of Service: 07/18/24 Procedure(s): US OB transvaginal Accession Number(s): [id number] cc: Yogesh Canales D.O.; HAZEL GRADY [place] [address] Patient Name: JIMBO DOE MRN: [id number] date: 2005 Sex: F Assigned Patient Location: [facility] Current Patient Location: Accession/Order Number: [id number] Exam Date: 07/18/2024 10:06 Report Date: 07/19/2024 [...] 04:28 Dictated By: Salbador Sofia M.D. Signed By:07/19/241 DD/ TD/TT: Business Reporter: us Yogesh Canales DO [facility] Final Result documented in this encounter Visit Diagnoses Not on filedocumented in this encounter Care Teams Computer Systems Support Specialist Relationship Specialty Start Date End Date Hazel Grady MD [address] [place] [address] PCP - General Family Medicine 07/18/24 documented as of this encounter
--- OUTSIDE RECORDS SUMMARY | 2025-01-11 14:07 | XMS_ITS | Encounter Summary ---
Author Organization [facility] [employer] [facility] tem Address [facility] [id number] [address] [place] [address] Care Team Providers Care Metal Punch Press Operator Name Role Phone Unavailable Primary Care Provider Unavailabl e Encounter Details Date Type Department Care Team (Late Contact Info) Description 01/04/2025 Orders Only Maternal- Medicine at [facility] [address] [place] [address] Ref Prov, [place] [address] Social History Tobacco Use Types Packs/Day Years [...] 01/18/2025 8:15 AM EDT Appointment Maternal Medicine [place] [address] [place] [address] documented as of this encounter Procedures Procedure [...] 10:58 AM EDT) Anatomical Region Laterality Modality OB-SERVICES CLERK Ultrasound us Not In System Ref Prov IMG US ORDERABLES Final R esult * Ultrasound limited 1 or more fetus (01/04/2025 10:56 AM EDT) Anatomical Region Laterality Modality OB-SERVICES CLERK Ultrasound us Not In System Ref Prov IMG US ORDERABLES Final R esult * Ultrasound limited 1 or more fetus (01/04/2025 10:55 AM EDT) Anatomical Region Laterality Modality OB-SERVICES CLERK Ultrasound us Not In System Ref Prov IMG US ORDERABLES Final R esult * Ultrasound limited 1 or more fetus (01/04/2025 10:54 AM EDT) Anatomical Region Laterality Modality OB-SERVICES CLERK Ultrasound us Not In System Ref Prov IMG US ORDERABLES Final R esult * Ultrasound limited 1 or more fetus (01/04/2025 10:51 AM EDT) Anatomical Region Laterality Modality OB-SERVICES CLERK Ultrasound us Not In System Ref Prov IMG US ORDERABLES Final R esult documented in this encounter Visit Diagnoses Not on filedocumented in this encounter
--- OUTSIDE RECORDS SUMMARY | 2025-01-11 14:07 | XMS_ITS | Clinical Summary ---
Author Organization [facility] Healthcare Address [address] [place] [address] Care Team Providers Care Modular Home Crew Member Name Role Phone Hazel Grady MD Primary Care Provider [phone] Allergies Active Allergy Reactions Criticality Noted Date [...] Encounters Date Type Department Care Team Description 01/11/2025 1:30 PM EDT Routine [facility] [place] [address] Maryanne Whiteside PA Third trimester ; 32 weeks gestation of ; Pruritus 01/11/2025 Bamboo flowsheet [facility] [address] [place] [address] Maraynne Whiteside PA 01/10/2025 Clinisync Result Encounter [facility]OM[facility] External Department Unsolicited Ally, Yogesh, DO 01/06/2025 Clinisync Result Encounter [facility]OMS External Department Unsolicited AllyConyy, DO 01/03/2025 Clinisync Result Encounter [facility]OM[facility] External Department Unsolicited Ally Yogesh, DO 12/28/2024 9:50 AM EDT Routine [facility] [address] [place] [address] Yogesh Canales, DO 30 weeks gestation of ; Third trimester ; Oligohydramnios in third trimester, fetus 1 of multiple gestation 12/28/2024 9:00 AM EDT Ancillary Procedure [facility] [address] [place] [address] size inconsistent with dates 12/16/2024 Clinisync Result Encounter [facility]OM[facility] External Department Unsolicited Yogesh Canales, DO 12/15/2024 Clinisync Result Encounter [facility]OMS External Department Unsolicited Yogesh Canales, DO 12/06/2024 1:20 PM EDT Routine [facility] [address] [place] [address] Lynette Gunter, DEE DEE size inconsistent with dates (Primary Dx); 27 weeks gestation of ; Second trimester 12/06/2024 Travel 12/06/2024 Bamboo flowsheet [facility] [address] [place] [address] Lynette Gunter, DEE DEE 11/30/2024 Clinisync Result Encounter NOMS External Department Unsolicited Cony Canalesy, DO 11/15/2024 10:50 AM EDT Routine [facility] [address] [place] [address] Yogesh Canales, DO 24 weeks gestation of ; Second trimester ; Diabetes mellitus screening 11/15/2024 10:00 AM EDT Ancillary Procedure [facility] [address] [place] [address] Encounter for follow-up ultrasound of anatomy 11/01/[address] [address] [place] [address] Yogesh Canales DO 10/18/2024 2:30 PM EDT Routine [facility] [address] [place] [address] Maryanne Whiteside PA Second trimester ; 20 weeks gestation of 10/18/2024 1:00 PM EDT Ancillary Procedure [facility] [address] [place] [address] 10/18/2024 Travel from Last 3 Months Social [...] Description 01/25/2025 8:40 AM EDT Routine [facility] [address] [place] [address] Yogesh Canales, [address] [place] [address] Procedures Procedure Name Priority Date/Time Associated Diagnosis Comments US OB BPP W NON-STRESS 01/10/2025 10:44 AM EDT AMNISURE Routine 01/06/2025 11:15 AM EDT US [...] 12/15/2024 11:00 PM EDT [facility] UA (CLEAN/CATCH) STREET ROLLER ENGINEER/MICRO IF IND. Routine 12/15/2024 11:00 PM EDT [...] Results * US OB BPP W NON-STRESS (01/10/2025 10:44 AM EDT) Only the most recent of2 resultswithin the time period is included. Anatomical Region Laterality Modality Other 01/10/2025 10:4 4 AM EDT Narrative 01/10/2025 10:47 [place] [address] Ultrasound Report Signed Patient: FRANCES DOE MR#: [id number] : 2005 Acct:[id number] Age/Sex: 19 / F ADM Date: 01/10/25 Loc: [facility] 250-[address]: Yogesh Canales D.O. Ordering Physician: Yogesh Canales D.O. Date of Service: 01/10/25 Procedure(s): US OB BPP w non-stress Accession Number(s): [id number] cc: Yogesh Canales D.O.; HAZEL GRADY The [address] [address] Patient Name: FRANCES DOE MRN: [facility]:[id number] date: 2005 Sex: F Assigned Patient Location: [facility] Current Patient Location: [facility] Accession/Order Number: [id number] Exam Date: 01/10/2025 10:39 Report Date: 01/10/2025 10:44 At the request of: YOGESH CANALES DO Procedure: US OB BPP w non-stress BIOPHYSICAL PROFILE: CLINICAL INFORMATION: OLIGOHYDRAMNIOS O41.09X1 COMPARISON: 01/03/2025 There is a single live intrauterine gestation in cephalic presentation. The reported gestational age is 32 weeks 4 days. The heart rate beats [...] greater than 2 cm [Y] 2/2 JEROD: 8.9 cm. This is just above the 5th percentile (8.6 cm). Total score: 8/8 US/US OB BPP w non-stress IMPRESSION: NORMAL BIOPHYSICAL PROFILE. BORDERLINE OLIGOHYDRAMNIOS. Impression dictated by: Aparna Nascimento M.D. 01/10/2025 10:44 AM Dictation Location: [place] [address] Electronically authenticated by: [id number] Y Date: 01/10/2025 10:44 Dictated By: Aparna Nascimento M.D. Signed By: 01/10/25 1047 DD/ 1044 TD/TT: Assistant Principal: Procedure Note Radiology, Radiologist, - 01/10/2025 [place] [address] Ultrasound Report Signed Patient: FRANCES DOE RMR#: [id number] : 2005Acct:[id number] Age/Sex: 19 / FADM Date: 01/10/25 Loc: [facility] 250-[address]: Yogesh Canales D.O. Ordering Physician: Yogesh Canales D.O. Date of Service: 01/10/25 Procedure(s): US OB BPP w non-stress Accession Number(s): [id number] cc: Yogesh Canales D.O.; HAZEL GRADY [address] [address] Patient Name: FRANCES DOE MRN: [facility]:[id number] date: 2005 Sex: F Assigned Patient Location: [facility] Current Patient Location: [facility] Accession/Order Number: [id number] Exam Date: 01/10/2025 10:39 Report Date: 01/10/2025 10:44 At the request of: YOGESH CANALES DO Procedure: US OB BPP w non-stress BIOPHYSICAL PROFILE: CLINICAL INFORMATION: OLIGOHYDRAMNIOS O41.09X1 COMPARISON: 01/03/2025 There is a single live intrauterine gestation in cephalic presentation.The reported gestational age is 32 weeks 4 days. The heart eannzyokrdgb172 beats per minute. FINDINGS: TONE: 1 or more episodes of activity extension and flexion of extremity or opening and closing of the hand [Y] 2/2 GROSS BODY MOVEMENTS: 3 or more discrete body or limb movements [Y] 2/2 BREATHING MOVEMENTS: 1 or more episodes of breathing lastingat least 30 seconds [Y] 2/2 JERDO: A single deepest vertical pocket of amniotic fluid greater than 2 cm [Y] 2/2 JEROD: 8.9 cm. This is just above the 5th percentile (8.6 cm). Total score: 8/8 US/US OB BPP w non-stress IMPRESSION: NORMAL BIOPHYSICAL PROFILE. BORDERLINE OLIGOHYDRAMNIOS. Impression dictated by: Aparna Nascimento M.D. 01/10/2025 10:44 AM Dictation Location: [place] [address] Electronically authenticated by: [id number] Y Date: 0:44 Dictated By: Aparna Nascimento M.D. Signed By:01/10/25 1047 DD/ 1044 TD/TT: Assistant Principal: Yogesh Ally DO [facility] Final Result * AMNISURE (01/06/2025 11:15 AM EDT) [facility] AMNISURE NEGATIVE NEGATIVE [facility] 01/06/2025 11:1 5 AM EDT 01/06/2025 11:29 AM EDT Narrative [facility] - 01/06/2025 11:41 AM EDT us Yogesh Ally DO LAB BLOOD ORDERABLES Final Resul t [facility] * (ABNORMAL) POCT urinalysis dipstick manually resulted [...] II, MD, PHD at 29-Dec-2024 12:17:39 PM [facility] Procedure Note Dorothy Duckworth MD - [...] signed by DOROTHY DUCKWORTH II, MD, PHD [id number] 12:17:39 PM [facility] us Lynette Gunter ASSISTANT BANQUET MANAGER IMG OB US PROCEDURES Final Re sult * (ABNORMAL) [facility] URINE T PROTEIN CREAT RATIO (12/16/2024 1:30 PM EDT) TOTAL PROTEIN URINE RANDOM 17.9(H) <=11.9 mg/dL [facility] CREATININE URINE RANDOM 124.49 20.00 - 300.00 mg/dL [facility] PROTEIN CREATININE RATIO URINE 0.14 [facility] 12/16/2024 1:30 PM EDT 12/16/2024 1:34 PM EDT Narrative [facility] - 12/16/2024 1:46 PM EDT Yogesh Ally DO [facility] Final Result [facility] * (ABNORMAL) [facility] LIPASE (12/16/2024 12:41 PM EDT) Only the most recent of2 resultswithin the time period is included. LIPASE 15.0(L) 16.0 - 77.0 U/L [facility] 12/16/2024 12:4 1 PM EDT 12/16/2024 12:44 PM EDT Narrative [facility] - 12/16/2024 1:22 PM EDT Yogesh Ally DO CLIN[facility] Final Result [facility] * (ABNORMAL) [facility] CMP (CMP) (FOR REMOTE [facility] USE) (12/16/2024 12:41 PM EDT) Only [...] 0.55 - 1.02 mg/dL [facility] EGFR-AF BURUNDIAN >60 >=60 mL/min/1. 73m 2 [facility] EGFR-NON AF BURUNDIAN >60 >=60 mL/min/1. 73m 2 [facility] BUN [...] us Yogesh Ally DO [facility] Final Result [facility] * (ABNORMAL) ALL CBC WITH AUTO DIFF [...] - 12/16/2024 12:53 PM EDT us Yogesh Herrerao DO [facility] Final Result [facility] * ALL AMYLASE (12/16/2024 12:41 PM EDT) Only the most recent of2 resultswithin the time period is included. AMYLASE 36 25 - 115 U/L [facility] 12/16/2024 12:4 1 PM EDT 12/16/2024 12:44 PM EDT Narrative [facility] - 12/16/2024 1:22 PM EDT us Yogesh Ally DO CLINIS[facility]NC Final Result Performing Organization Address [facility]/ZIP Co de Phone Number [facility] * ALL URIC ACID (12/16/2024 12:30 AM EDT) URIC ACID 3.2 2.6 - 6.0 mg/dL [facility] 12/16/2024 12:3 0 AM EDT 12/16/2024 1:30 AM EDT Narrative [facility]IN[facility] - 12/16/2024 1:37 AM EDT us Yogesh Ally DO CLIN[facility] Final Result Performing Organization Address [facility]/ZIP Co de Phone Number [facility] * [...] DO CLIN[facility] Final Result Performing Organization Address [facility]/ZIP Co de Phone Number [facility] * (ABNORMAL) [facility] UA (CLEAN/CATCH) STREET ROLLER ENGINEER/MICRO IF IND. (12/15/2024 11:00 PM EDT) COLOR [...] DO CLIN[facility] Final Result Performing Organization Address [facility]/ZIP Co de Phone Number [facility] * GLUCOSE 1 HOUR (11/30/2024 2:12 PM EDT) GLUCOSE 1 HOUR 96 <130 mg/dL TB 11/30/2024 2:12 PM EDT 11/30/2024 2:14 PM EDT Narrative [facility] - 11/30/2024 3:11 PM EDT us Yogesh Ally DO LAB BLOOD ORDERABLES Final Resul t Performing Organization Address [facility]/ZIP Co de Phone Number [facility] * US OB limited 1+ [...] II, MD, PHD at 17-Nov-2024 06:24:10 AM [facility] Procedure Note Dorothy Duckworth MD - [...] signed by DOROTHY DUCKWORTH II, MD, PHD [id number] 06:24:10 AM [facility] us Yogesh Canales DO IMG OB [...] II, MD, PHD at 19-Oct-2024 09:01:31 AM [facility] Procedure Note Dorothy Duckworth MD - [...] DUCKWORTH II, MD, PHDat 19-Oct-2024 09:01:31 AM [facility] us Maryanne FOWLER IMG OB US PROCEDURES Final Resul t from Last 3 Months Insurance [facility] Care Teams Modular Home Crew Member Relationship Specialty Start Date End Date Hazel Grady MD [address] [place] [address] PCP - General Family Medicine 07/18/24
--- OUTSIDE RECORDS SUMMARY | 2025-01-11 14:07 | XMS_ITS | Clinical Summary ---
Author Organization [employer] [facility] tem Address [id number] [address] [place] [address] Care Team Providers Care Textile Examiner Name Role Phone Unavailable Primary Care Provider [...] Description 01/04/2025 Orders Only Maternal- Medicine at [facility] [address] [place] [address] Ref Prov, Not In System 01/04/2025 Abstract Maternal- Medicine at [facility] [address] [place] [address] Mike Lay MD from Last 3 Months [...] 01/18/2025 8:15 AM EDT Appointment Maternal Medicine [place] [address] [facility] [place] [address] Health Maintenance Due Date Last Done Comments [...] period is included. Anatomical Region Laterality Modality OB-SKIN CARE CONSULTANT Ultrasound us Not In System Ref Prov IMG US ORDERABLES Final R esult * CBC without diff (11/30/2024) Hemoglobin 11.2 MANUALLY TRANSCRIBED RESULTS Hematocrit 34.0 MANUALLY TRANSCRIBED RESULTS Rbc Mcv (Fl) By Automated Count 84.0 MANUALLY TRANSCRIBED RESULTS Blood Venous blood / Unknown us Not In System Ref Prov LAB BLOOD ORDERABLES Jessica l Result MANUALLY TRANSCRIBED RESULTS from Last 3 Months Insurance [facility]
--- OUTSIDE RECORDS SUMMARY | 2025-01-11 14:07 | XMS_ITS | Encounter Summary ---
Author Organization [facility] Address [address] [place] [address] Care Team Providers Care Bombsight Specialist Name Role Phone David Awan MD Primary Care Provider Encounter Details Date Type Department Care Team (Late st Contact Info) Description 08/08/2024 Abstract [facility] [address] [place] [phone] [facility] [place], [facility] Social History Tobacco Use Types Packs/Day [...] Routine [facility] [address] [place] [address] [facility] [address] [place], [place] [address] documented as of this encounter Visit Diagnoses Not on filedocumented in this encounter Care Teams Bombsight Specialist Relationship Specialty Start Date End Date David Awan MD [address] [place] [address] PCP - General Family Medicine 07/18/24 documented as of this encounter
--- OUTSIDE RECORDS SUMMARY | 2025-01-11 14:07 | XMS_ITS | Encounter Summary ---
Author Organization [facility] Address [address] [place] [address] Care Team Providers Care Hired Worker Name Role Phone David Awan MD Primary Care Provider [phone] Encounter Details Date Type Department Care Team (Late st Contact Info) Description 07/18/2024 Abstract [facility] [address] [place] [address] Cb Canales DO [facility] [place], [facility] Social History Tobacco Use Types Packs/Day Years [...] Routine [facility] OB [address] [place] [address] Cb Canales DO [facility] [place], [place] [address] documented as of this encounter Visit Diagnoses Not on filedocumented in this encounter Care Teams Hired Worker Relationship Specialty Start Date End Date David Awan MD [address] [place] [address] PCP - General Family Medicine 07/18/24 documented as of this encounter
--- OUTSIDE RECORDS SUMMARY | 2025-01-11 14:07 | XMS_ITS | Encounter Summary ---
Author Organization [facility] Address [address] [place] [address] Care Team Providers Care Spearer Name Role Phone David Awan MD Primary Care Provider [phone] Encounter Details Date Type Department Care Team (Late st Contact Info) Description 01/06/2025 Clinisync Result Encounter NOM[facility] External Department Unsolicited Cb Canales, DO [address] [place] [address] Social History Tobacco Use Types Packs/Day Years [...] Routine [facility] [address] [place] [address] Cb Canales DO [address] [place] [address] documented as of this encounter Procedures Procedure Name Priority Date/Time Associated Diagnosis Comments AMNISURE Routine 01/06/2025 11:15 AM EDT documented in this encounter Results * AMNISURE (01/06/2025 11:15 AM EDT) Pathologist [facility] AMNISURE NEGATIVE NEGATIVE [facility] 01/06/2025 11:1 5 AM EDT 01/06/2025 11:29 AM EDT Narrative [facility] - 01/06/2025 11:41 AM EDT us Cb Ally DO LAB BLOOD ORDERABLES Final Resul t [facility] documented in this encounter Visit Diagnoses Not on filedocumented in this encounter Care Teams Spearer Relationship Specialty Start Date End Date David Awan MD [address] [place] [address] PCP - General Family Medicine 07/18/24 documented as of this encounter
--- OUTSIDE RECORDS SUMMARY | 2025-01-11 14:07 | XMS_ITS | Encounter Summary ---
Author Organization [facility] Address [address] [place] [address] Care Team Providers Care Welt Stitcher Name Role Phone Hazel Grady MD Primary Care Provider [phone] Encounter Details Date Type Department Care Team (Late st Contact Info) Description 01/10/2025 Clinisync Result Encounter [facility]OM[facility] External Department Unsolicited Yogesh Canales, DO [address] [place] [address] Social History Tobacco Use Types Packs/Day Years [...] [facility] [address] [place] [address] Yogesh Canales DO [address] [place] [address] documented as of this encounter Procedures Procedure Name Priority Date/Time Associated Diagnosis Comments US OB BPP W NON-STRESS 01/10/2025 10:44 AM EDT documented in this encounter Results * US OB BPP W NON-STRESS (01/10/2025 10:44 AM EDT) Anatomical Region Laterality Modality Other 01/10/2025 10:4 4 AM EDT Narrative 01/10/2025 10:47 [place] [address] Ultrasound Report Signed Patient: JIMBO DOE MR#: [id number] : 2005 Acct:[id number] Age/Sex: 19 / F ADM Date: 01/10/25 Loc: [facility] 250-[address]: Yogesh Canales D.O. Ordering Physician: Yogesh Canales D.O. Date of Service: 01/10/25 Procedure(s): US OB BPP w non-stress Accession Number(s): [id number] cc: Yogesh Canales D.O.; HAZEL GRADY [place] [address] Patient Name: JIMBO DOE MRN: [id number] date: 2005 Sex: F Assigned Patient Location: [facility] Current Patient Location: [facility] Accession/Order Number: [id number] Exam Date: 01/10/2025 10:39 Report Date: 01/10/2025 10:44 At the request of: YOGESH CANALES DO Procedure: US OB BPP w non-stress BIOPHYSICAL PROFILE: CLINICAL INFORMATION: OLIGOHYDRAMNIOS O41.09X1 COMPARISON: 01/03/2025 There is a single live intrauterine gestation in cephalic presentation. The reported gestational age is 32 weeks 4 days. The heart rate kutokfhk420 beats per minute. FINDINGS: TONE: 1 or [...] Nascimento M.D. 01/10/2025 10:44 AM Dictation Location: [place] [address] Electronically authenticated by: [id number] Y Date: 01/10/2025 10:44 Dictated By: Aparna Nascimento M.D. Signed By: 01/10/25 1047 DD/ 1044 TD/TT: Burglar Alarm Inspector: Procedure Note Radiology, Radiologist, - 01/10/2025 [place] [address] Ultrasound Report Signed Patient: JIMBO DOE RMR#: [id number] : 2005Acct:[id number] Age/Sex: 19 / FADM Date: 01/10/25 Loc: [facility] 250-[address]: Yogesh Canales D.O. Ordering Physician: Yogesh Canales D.O. Date of Service: 01/10/25 Procedure(s): US OB BPP w non-stress Accession Number(s): [id number] cc: Yogesh Canales D.O.; HAZEL GRADY The [place] [id number] Patient Name: JIMBO DOE MRN: [id number] date: 2005 Sex: F Assigned Patient Location: [facility] Current Patient Location: [facility] Accession/Order Number: [id number] Exam Date: 01/10/2025 10:39 Report Date: 01/10/2025 10:44 At the request of: YOGESH CANALES DO Procedure: US OB BPP w non-stress BIOPHYSICAL PROFILE: CLINICAL INFORMATION: OLIGOHYDRAMNIOS O41.09X1 COMPARISON: 01/03/2025 There is a single live intrauterine gestation in cephalic presentation.The reported gestational age is 32 weeks 4 days. The heart aknueljkprmw195 beats per minute. FINDINGS: TONE: 1 or [...] the 5th percentile (8.6 cm). Total score: 03/16 US/US OB BPP w non-stress IMPRESSION: NORMAL BIOPHYSICAL PROFILE. BORDERLINE OLIGOHYDRAMNIOS. Impression dictated by: Aparna Nascimento M.D. 01/10/2025 10:44 AM Dictation Location: [place] [address] Electronically authenticated by: [id number] Y Date: 0:44 Dictated By: Aparna Nascimento M.D. Signed By:01/10/25 1047 DD/ 1044 TD/TT: Burglar Alarm Inspector: us Yogesh Ally DO [facility] Final Result documented in this encounter Visit Diagnoses Not on filedocumented in this encounter Care Teams Welt Stitcher Relationship Specialty Start Date End Date Hazel Grady MD [address] [place] [address] PCP - General Family Medicine 07/18/24 documented as of this encounter
--- OUTSIDE RECORDS SUMMARY | 2025-01-11 14:07 | XMS_ITS | Encounter Summary ---
Author Organization [facility] Address [address] [place] [address] Care Team Providers Care [place] Leverman Name Role Phone Hazel Grady MD Primary Care Provider [phone] Encounter Details Date Type Department Care Team (Late st Contact Info) Description 01/03/2025 Clinisync Result Encounter [facility]OM[facility] External Department Unsolicited Yogesh Canales, DO [address] [place] [address] Social History Tobacco Use Types Packs/Day Years [...] Routine [facility] [address] [place] [address] Yogesh Canales DO [address] [place] [address] documented as of this encounter Procedures Procedure Name Priority Date/Time Associated Diagnosis Comments US OB BPP W NON-STRESS 01/03/2025 10:43 AM EDT documented in this encounter Results * US OB BPP W NON-STRESS (01/03/2025 10:43 AM EDT) Anatomical Region Laterality Modality Other 01/03/2025 10:4 3 AM EDT Narrative 01/03/2025 10:46 [place] [address] Ultrasound Report Signed Patient: JIMBO DOE MR#: [id number] : 2005 Acct:[id number] Age/Sex: 19 / F ADM Date: 01/03/25 Loc: [facility] 251-[address]: Yogesh Canales D.O. Ordering Physician: Yogesh Canales D.O. Date of Service: 01/03/25 Procedure(s): US OB BPP w non-stress Accession Number(s): [id number] cc: Yogesh Canales D.O.; HAZEL GRADY [place] [address] Patient Name: JIMBO DOE MRN: [id number] date: 2005 Sex: F Assigned Patient Location: [facility] Current Patient Location: [facility] Accession/Order Number: [id number] Exam Date: 01/03/2025 10:37 Report Date: 01/03/2025 10:43 At the request of: YOGESH CANALES DO Procedure: US OB BPP w non-stress BIOPHYSICAL PROFILE: CLINICAL INFORMATION: Oligohydramnios O41.03x1 COMPARISON: 07/18/2024 There is a single live intrauterine gestation in cephalic presentation. The reported gestational age is 31 weeks 4 days. The heart rate hkourxqg022 beats per minute. FINDINGS: TONE: 1 or [...] Nascimento M.D. 01/03/2025 10:43 AM Dictation Location: [place] [address] Electronically authenticated by: [id number] Y Date: 01/03/2025 10:43 Dictated By: Aparna Nascimento M.D. Signed By: 01/03/25 1046 DD/ 1043 TD/TT: Agri Business Agent: Procedure Note Radiology, Radiologist, - 01/03/2025 [place] [address] Ultrasound Report Signed Patient: JIMBO DOE RMR#: [id number] : 2005Acct:[id number] Age/Sex: 19 / FADM Date: 01/03/25 Loc: [facility] 251-[address]: Yogesh Canales D.O. Ordering Physician: Yogesh Canales D.O. Date of Service: 01/03/25 Procedure(s): US OB BPP w non-stress Accession Number(s): [id number] cc: Yogesh Canales D.O.; HAZEL GRADY The [place] [address] Patient Name: JIMBO DOE MRN: [facility]:[id number] date: 2005 Sex: F Assigned Patient Location: [facility] Current Patient Location: [facility] Accession/Order Number: [id number] Exam Date: 01/03/2025 10:37 Report Date: 01/03/2025 10:43 At the request of: YOGESH CANALES DO Procedure: US OB BPP w non-stress BIOPHYSICAL PROFILE: CLINICAL INFORMATION: Oligohydramnios O41.03x1 COMPARISON: 07/18/2024 There is a single live intrauterine gestation in cephalic presentation.The reported gestational age is 31 weeks 4 days. The heart vshzvukswhlf708 beats per minute. FINDINGS: TONE: 1 or [...] Nascimento M.D. 01/03/2025 10:43 AM Dictation Location: [place] [address] Electronically authenticated by: [id number] Y Date: 0:43 Dictated By: Aparna Nascimento M.D. Signed By:01/03/25 1046 DD/ 1043 TD/TT: Agri Business Agent: us Yogesh Ally DO [facility] Final Result documented in this encounter Visit Diagnoses Not on filedocumented in this encounter Care Teams [place] Relationship Specialty Start Date End Date Hazel Grady MD [address] [place] [address] PCP - General Family Medicine 07/18/24 documented as of this encounter
--- OUTSIDE RECORDS SUMMARY | 2025-01-11 14:07 | XMS_ITS | Encounter Summary ---
Author Organization [facility] Address [address] [place] [address] Care Team Providers Care Public Transportation Inspector Name Role Phone David Awan MD Primary Care Provider Encounter Details Date Type Department Care Team (Late st Contact Info) Description 01/11/2025 Bamboo flowsheet [facility] [address] [facility] [place] [address] Maryanne Whiteside PA [address] [place] [address] Dr [place], [id number] Social History Tobacco Use Types Packs/Day Years [...] AM EDT Routine [facility] [address] [place] [address] Cb Canales DO [address] [place] [address] Dr Pepper Flynn, [id number] documented as of this encounter Visit Diagnoses Not on filedocumented in this encounter Care Teams Public Transportation Inspector Relationship Specialty Start Date End Date David Awan MD [address] [place] [address] PCP - General Family Medicine 07/18/24 documented as of this encounter
--- OUTSIDE RECORDS SUMMARY | 2025-01-11 14:07 | XMS_ITS | Patient Health Record ---
Author Organization [employer] [facility] [employer] Address [address] [place] [address] Care Team Providers Care Seismometer Operator Name Role Phone Amanda Wilson Primary Care Provider Reason For Referral No Information Plan Of Treatment No Information Insurance Providers Payer Name Payer Address Payer Phone Subscriber Number Group Number Insured Name Patient Relationship to Insured Coverage Start Date Coverage End Date [facility] [address] [address] [place] [address] [phone] [id number] JIMBO DOE Self - patient is the insured 3
--- OUTSIDE RECORDS SUMMARY | 2025-01-11 14:07 | XMS_ITS | Encounter Summary ---
Author Organization [facility] [email or web address] [facility] tem Address [id number] [address] [place] [address] Care Team Providers Care Piped Buttonhole Machine Operator Name Role Phone Unavailable Primary Care Provider Unavailabl e Encounter Details Date Type Department Care Team (Late Contact Info) Description 01/04/2025 Abstract Maternal- Medicine at [facility] [address] [place] [id number] Mike Lay MD [address] [facility], [address] [place] [address] Social History Tobacco Use Types Packs/Day Years [...] 01/18/2025 8:15 AM EDT Appointment Maternal Medicine [address] [place] [address] documented as of this encounter Procedures Procedure [...] ORDERABLES Jessica l Result Performing Organization Address City/[facility] Co de Phone Number MANUALLY TRANSCRIBED RESULTS * Syphilis Total (Unknown Syphilis Status) (08/05/2024) Syphilis non reactive MANUALL Y TRANSCRIBED RESULTS Blood Venous blood / Unknown us Not In System Ref Prov LAB BLOOD ORDERABLES Jessica l Result Performing Organization Address City/[facility]/ZIP Co de Phone Number MANUALLY TRANSCRIBED RESULTS documented in this encounter Visit Diagnoses Not on filedocumented in this encounter
[2025-01-11 14:27] LABS: Basophils Percent Auto 0.1 % (0.2-2.0); Eosinophils Percent Auto 0.2 % (0.9-7.0); Hematocrit 31.2 % (36.0-48.0); Hemoglobin 10.3 g/dL (12.0-16.0); Immature Granulocytes Abs Auto 0.02 10^3/uL (0.00-0.03); Immature Granulocytes Pct Auto 0.2 % (0.0-0.5); Lymphocytes Absolute Auto 1.4 10^3/uL (1.2-3.8); Lymphocytes Percent Auto 14.2 % (20.5-60.0); Mean Corpuscular Hemoglobin 27.2 pg (26.7-34.0); Mean Corpuscular Volume 82.3 fL (81.0-99.0); Mean Platelet Volume 9.1 fL (9.5-13.5); Monocytes Absolute Auto 0.6 10^3/uL (0.3-0.8); Monocytes Percent Auto 6.1 % (1.7-12.0); Neutrophils Absolute Auto 7.7 10^3/uL (1.4-6.5); Neutrophils Percent Auto 79.2 % (43.0-75.0); Platelet Count 254 10^3/uL (150-450); Red Blood Count 3.79 10^6/uL (4.20-5.40); White Blood Count 9.8 10^3/uL (4.0-11.0)
[2025-01-11 15:12] LABS: Alanine Aminotransferase 12 U/L (14-59); Albumin Globulin Ratio 0.5; Albumin Level 2.2 g/dL (3.4-5.0); Alkaline Phosphatase 134 U/L (46-116); Aspartate Amino Transferase 12 U/L (15-37); Bilirubin Direct 0.1 mg/dL (0.0-0.2); Bilirubin Total 0.2 mg/dL (0.2-1.0); Globulin 4.1 g/dL; Thyroid Stimulating Hormone 0.457 uIU/mL (0.358-3.740); Total Protein 6.3 g/dL (6.4-8.2)
[2025-01-12 05:07] LABS: HCV Antibody Non Reactive (Non Reactive)
[2025-01-12 15:09] LABS: Bile Acids 1.6 umol/L (0.0-10.0)
== END 2025-01-11 14:04 | disposition home or self-care (01) ==
LOC: LAB 14:05
PROVIDERS: PCP Family Medicine; Visit Provider Physician Assistant
DX: L29.9 Pruritus, unspecified (principal)
CPT/HCPCS: 36415; 80076; 82239; 84443; 85025; 86803

== ENCOUNTER 2025-01-13 10:01 | Outpatient (OUT) | payer OTHER, SELFPAY ==
--- OUTSIDE RECORDS SUMMARY | 2025-01-13 10:03 | XMS_ITS | CCD ---
Author Organization [facility] Care Team Providers Care Laundry Pricing Clerk Name Role Phone Almaz Huerta Unavailable HAZEL GRADY Primary Care Unavailable CHRISTIANO TATUM Attending Unavailable CHRISTIANO TATUM Consulting Unavailable CHRISTIANO TATUM Admitting Unavailable Sheree Cheung Unavailable Dom Sarmiento Attending Unavailable Tiesha Flood Unavailable Unavailable Primary Care Provider UnavailHazel Young MD Primary Care Provider [phone] Sheree Cheung Primary Care Unavailable Yogesh Canales Attending Unavailable Yogesh Canales Admitting Unavailable MARYANNE COVARRUBIAS Attending Unavailable MARYANNE COVARRUBIAS Attending Unavailable YOGESH CANALES Attending Unavailable LYNETTE GUNTER Attending Unavailable YOGESH CANALES Attending Unavailable MARYANNE COVARRUBIAS Attending Unavailable YOGESH CANALES Attending Unavailable Allergies Allergy Classification Reported Allergen(s) Allergy Type Date of Onset Reaction(s) Facility (20 sources) Amoxicillin; Translations: [amoxicillin] Drug Allergy 4 swelling, Rash [facility] Repository (1 source) Amoxicillin Drug Allergy 6 [facility] Repository (1 source) Amoxicillin Drug Allergy 4 [facility] Repository Medications Current Medications Medication [...] Active magnesium oxide 400 mg oral tablet (20 sources) Start: 08-17-2024 End: 09-16-2024 take 1 [...] (Original) ondansetron 4 mg disintegrating oral tablet (17 sources) Serotonin-3 Receptor Antagonist Start: 07-18-2024 End: [...] noninflammatory disorders of vagina] 09-21-2024 Episodic Other inflammatory condition of skin (2 sources) Pruritus, unspecified; Translations: [Unspecified pruritic disorder] 01-11-2025 Episodic Other and delivery including normal (16 sources) ; Translations: [Encounter for supervision of [...] [30 weeks gestation of ] 12-28-2024 Episodic Residual codes; unclassified (2 sources) Gestation period, 32 weeks; Translations: [32 weeks gestation of ] 01-11-2025 Episodic Past or Other Problems Problem Classification Problem Date Documented Da te Episodic/Chronic Administrative/social admission (1 source) Encounter for pre-employment examination Onset: 01-21-2022 Resolved: 01-21-2022 Episodic Results Test Name Value Interpretation Reference Range Facility ALL CBC WITH AUTO DIFFon BASOPHILS ABSOLUTE AUTO 0 [facility] Basophils/100 WBC (Bld) 0.1 % Low 0.2 - 2.0 % [facility] Eosinophils/100 WBC (Bld) 0.2 % Low 0.9 - 7.0 % [facility] Erythrocyte distribution width (RBC) [Ratio] 13 % 11.0 - 15.0 % [facility] Hematocrit (Bld) [Volume fraction] 31.2 % Low 36.0 - 48.0 % [facility] Hemoglobin (Bld) [Mass/Vol] 10.3 g/dL Low 12.0 - 16.0 g/dL [facility] IMMATURE GRANULOCYTES ABS AUTO 0.02 [facility] Immature granulocytes/100 WBC (Bld) 0.2 % 0.0 - 0.5 % [facility] Interpretation and review of laboratory results Abnormal [facility] LYMPHOCYTES ABSOLUTE AUTO 1.4 [facility] Lymphocytes/100 WBC (Bld) 14.2 % Low 20.5 - 60.0 % [facility] MCH (RBC) [Entitic mass] 27.2 pg 26.7 - 34.0 pg [facility] MCHC (RBC) [Mass/Vol] 33 g/dL 29.9 - 35.2 g/dL [facility] MCV (RBC) [Entitic vol] 82.3 fL 81.0 - 99.0 fL [facility] MONOCYTES ABSOLUTE AUTO 0.6 [facility] Monocytes/100 WBC (Bld) 6.1 % 1.7 - 12.0 % [facility] NEUTROPHILS ABSOLUTE AUTO 7.7 High [facility] Neutrophils/100 WBC (Bld) 79.2 % High 43.0 - 75.0 % [facility] Platelet mean volume (Bld) [Entitic vol] 9.1 fL Low 9.5 - 13.5 fL [facility] TBH EO # 0 [facility] PLT 254 [facility] RBC 3.79 Low [facility] WBC 9.8 [facility] AMNISUREon 01-06-2025 TB[facility] AMNISURE Negative NEGATIVE [facility] US OB BPP W NON-STRESS on 01-03-2025 [place] [address] Ultrasound Report Signed Patient: FRANCES DOE MR#: [id number] : 2005 Acct:[id number] Age/Sex: 19 / F ADM Date: 01/03/25 Loc: [facility] 251-[address]: Yogesh Canales D.O. Ordering Physician: Yogesh Canales D.O. Date of Service: 01/03/25 Procedure(s): US OB BPP w non-stress Accession Number(s): [id number] cc: Yogesh Canales D.O.; HAZEL GRADY The [place] [address] Patient Name: FRANCES DOE MRN: [facility]:[id number] date: 2005 Sex: F Assigned Patient Location: [facility] Current Patient Location: [facility] Accession/Order Number: [id number] Exam Date: 01/03/2025 10:37 Report Date: 01/03/2025 10:43 At the request of: YOGESH CANALES DO Procedure: US OB BPP w non-stress BIOPHYSICAL PROFILE: CLINICAL INFORMATION: Oligohydramnios O41.03x1 COMPARISON: 07/18/2024 There is a single live intrauterine gestation in cephalic presentation. The reported gestational age is 31 weeks 4 days. The heart rate [id number] beats per minute. FINDINGS: TONE: 1 or [...] Nascimento M.D. 01/03/2025 10:43 AM Dictation Location: [place] [address] Electronically authenticated by: [id number] Y Date: 01/03/2025 10:43 Dictated By: Aparna Nascimento M.D. Signed By: 01/03/25 1046 DD/ 1043 TD/TT: Early [employer] Teacher: [facility] Radiology, Radiologist, - 01/03/2025 [place] [address] Ultrasound Report Signed Patient: FRANCES DOE MR#: [id number] : 2005 Acct:[id number] Age/Sex: 19 / F ADM Date: 01/03/25 Loc: [facility] 251-[address]: Yogesh Canales D.O. Ordering Physician: Yogesh Canales D.O. Date of Service: 01/03/25 Procedure(s): US OB BPP w non-stress Accession Number(s): [id number] cc: Yogesh Canales D.O.; HAZEL GRADY [place] [address] Patient Name: FRANCES DOE MRN: [facility]:[id number] date: 2005 Sex: F Assigned Patient Location: [facility] Current Patient Location: [facility] Accession/Order Number: [id number] Exam Date: 01/03/2025 10:37 Report Date: 01/03/2025 10:43 At the request of: YOGESH CANALES DO Procedure: US OB BPP w non-stress BIOPHYSICAL PROFILE: CLINICAL INFORMATION: Oligohydramnios O41.03x1 COMPARISON: 07/18/2024 There is a single live intrauterine gestation in cephalic presentation. The reported gestational age is 31 weeks 4 days. The heart rate [id number] beats per minute. FINDINGS: TONE: 1 or [...] Nascimento M.D. 01/03/2025 10:43 AM Dictation Location: [place] [address] Electronically authenticated by: [id number] Y Date: 01/03/2025 10:43 Dictated By: Aparna Nascimento M.D. Signed By: 01/03/25 1046 DD/ 1043 TD/TT: [employer] Teacher: [facility] [employer] Radiology Study observation (narrative) [facility] US OB BPP W NON-STRESS Ordered By: Radiologist Radiology on 01-03-2025 [facility] Work Phone: US OB FOLLOW UP [...] II, MD, PHD at 29-Dec-2024 12:17:39 PM [facility] Normal Not Available Comment on above: Order Comment: US OB SCAN FOR GROWTH Estimated Date of Delivery: 03/03/25 Gestational Age as of 12/06/2024: 27w4d Urinalysis macro (dipstick) panel (U)on 12-28-2024 Bilirubin, UA Negative Negative - 4(70) +++ mg/dL [facility] Blood, UA Negative Negative - 50 Sam/mcL [facility] Clarity, UA Clear [facility] Color, UA Yellow [facility] Glucose, UA Negative Negative - 1999(110) ++++ mg/dL [facility] Interpretation and review of laboratory results Abnormal [facility] Ketones, UA Negative Negative - 160(16) ++++ mg/dL [facility] Leukocytes, UA Positive Negative - 500+++ Supa/mcL [facility] Comment on above: small Nitrite, UA Negative Negative - Positive [facility] pH, UA 7 5 - 9 [facility] Protein, UA Positive Negative - 1999(20) ++++ mg/dL [facility] Comment on above: 30mg/dL Spec Grav, UA 1.015 1 - 1.03 [facility] Urobilinogen, UA 0.2 0.2 - 12 mg/dL [facility] ALL CBC WITH AUTO DIFFon BASOPHILS ABSOLUTE AUTO 0 [facility] Basophils/100 WBC (Bld) 0.2 % 0.2 - 2.0 % [facility] Eosinophils/100 WBC (Bld) 0.4 % Low 0.9 - 7.0 % [facility] Erythrocyte distribution width (RBC) [Ratio] 12.7 % 11.0 - 15.0 % [facility] Hematocrit (Bld) [Volume fraction] 34 % Low 36.0 - 48.0 % [facility] Hemoglobin (Bld) [Mass/Vol] 11.5 g/dL Low 12.0 - 16.0 g/dL [facility] IMMATURE GRANULOCYTES ABS AUTO 0.06 High [facility] Immature granulocytes/100 WBC (Bld) 0.5 % 0.0 - 0.5 % [facility] Interpretation and review of laboratory results Abnormal [facility] re LYMPHOCYTES ABSOLUTE AUTO 2.5 [facility] Lymphocytes/100 WBC (Bld) 19.6 % Low 20.5 - 60.0 % [facility] MCH (RBC) [Entitic mass] 28 pg 26.7 - 34.0 pg [facility] MCHC (RBC) [Mass/Vol] 33.8 g/dL 29.9 - 35.2 g/dL [facility] MCV (RBC) [Entitic vol] 82.7 fL 81.0 - 99.0 fL [facility] MONOCYTES ABSOLUTE AUTO 0.8 [facility] Monocytes/100 WBC (Bld) 6.5 % 1.7 - 12.0 % [facility] NEUTROPHILS ABSOLUTE AUTO 9.3 High [facility] Neutrophils/100 WBC (Bld) 72.8 % 43.0 - 75.0 % [facility] Platelet mean volume (Bld) [Entitic vol] 9.5 fL 9.5 - 13.5 fL [facility] TBH EO # 0.1 [facility] TBH PLT 306 [facility] RBC 4.11 Low [facility] TBH WBC 12.7 High [facility] e [facility] e TB UA (CLEAN/CATCH) SPRAY GUN SIZER/TARSHA RO IF IND.on 12-15-2024 BILIRUBIN URINE Negative NEGATIVE [facility] thcare BLOOD URINE Negative NEGATIVE [facility]ca re Clarity (U) CLEAR CLEAR [facility] re Color (U) LT. YELLOW YELLOW [facility] GLUCOSE URINE UA Negative NEGATIVE mg/dL [facility] Interpretation and review of laboratory results Abnormal [facility] re Ketones Ql (U) Negative NEGATIVE mg/dL [facility] Leukocyte esterase Test strip Ql (U) LARGE Abnormal NEGATIVE [facility] e NITRITE URINE Negative NEGATIVE [facility] care pH (U) 7.0 [pH] 5.0 - 9.0 [facility] PROTEIN URINE Negative NEG/TRACE mg/dL [facility] SPECIFIC GRAVITY URINE <=1.005 Abnormal 1.005 - 1.025 [facility] URINE MICROSCOPIC INDICATED YES [facility] UROBILINOGEN URINE 0.2 EU/dL 0.2 - 1.0 EU/dL [facility] e Urinalysis macro (dipstick) panel (U)on 12-06-2024 Bilirubin, UA Negative Negative - 4(70) +++ mg/dL [facility] Blood, UA Negative Negative - 50 Sam/mcL [facility] Clarity, UA Clear [facility] Healthca re Color, UA Yellow [facility] Glucose, UA Negative Negative - 1999(110) ++++ mg/dL [facility] Interpretation and review of laboratory results Abnormal [facility] Healthla re Ketones, UA Positive Negative - 160(16) ++++ mg/dL [facility] Comment on above: trace Leukocytes, UA Trace Negative - 500+++ Supa/mcL [facility] Nitrite, UA Negative Negative - Positive [facility] pH, UA 5.5 5 - 9 [facility] Protein, UA Negative Negative - 1999(20) ++++ mg/dL [facility] Spec Grav, UA 1.03 1 - 1.03 [facility] Urobilinogen, UA 0.2 0.2 - 12 mg/dL [facility] ALL CBC WITH AUTO DIFFon BASOPHILS ABSOLUTE AUTO 0 [facility] Basophils/100 WBC (Bld) 0.2 % 0.2 - 2.0 % [facility] Eosinophils/100 WBC (Bld) 0.3 % Low 0.9 - 7.0 % [facility] Erythrocyte distribution width (RBC) [Ratio] 12.8 % 11.0 - 15.0 % [facility] Hematocrit (Bld) [Volume fraction] 34 % Low 36.0 - 48.0 % [facility] e Hemoglobin (Bld) [Mass/Vol] 11.2 g/dL Low 12.0 - 16.0 g/dL [facility] IMMATURE GRANULOCYTES ABS AUTO 0.05 High [facility] Immature granulocytes/100 WBC (Bld) 0.4 % 0.0 - 0.5 % [facility] Interpretation and review of laboratory results Abnormal [facility] LYMPHOCYTES ABSOLUTE AUTO 2.1 [facility] Lymphocytes/100 WBC (Bld) 17.3 % Low 20.5 - 60.0 % [facility] MCH (RBC) [Entitic mass] 27.7 pg 26.7 - 34.0 pg [facility] MCHC (RBC) [Mass/Vol] 32.9 g/dL 29.9 - 35.2 g/dL [facility] MCV (RBC) [Entitic vol] 84 fL 81.0 - 99.0 fL [facility] MONOCYTES ABSOLUTE AUTO 0.8 [facility] Monocytes/100 WBC (Bld) 6.6 % 1.7 - 12.0 % [facility] NEUTROPHILS ABSOLUTE AUTO 8.9 High [facility] Neutrophils/100 WBC (Bld) 75.2 % High 43.0 - 75.0 % [facility] Platelet mean volume (Bld) [Entitic vol] 9.1 fL Low 9.5 - 13.5 fL [facility] TBH EO # 0 [facility] Health[facility] e TBH PLT 281 [facility] RBC 4.05 Low [facility] e TBH WBC 11.8 High [facility] e [facility] Health[facility] e US OB LIMITED [...] II, MD, PHD at 17-Nov-2024 06:24:10 AM [facility] Normal Not Available Comment on above: Order Comment: US OB INCOMPLETE ANATOMY Estimated Date of Delivery: 03/03/25 Gestational Age as of 11/01/2024: 22w4d Urinalysis macro (dipstick) panel (U)on 11-15-2024 Bilirubin, UA Negative Negative - 4(70) +++ mg/dL [facility] Blood, UA Negative Negative - 50 Sam/mcL [facility] Healthcare Clarity, UA Clear [facility] Color, UA Yellow [facility] Glucose, UA Negative Negative - 1999(110) ++++ mg/dL [facility] Interpretation and review of laboratory results Abnormal [facility] Ketones, UA Negative Negative - 160(16) ++++ mg/dL [facility] Healthcare Leukocytes, UA Trace Negative - 500+++ Supa/mcL [facility] Healthcare Nitrite, UA Negative Negative - Positive [facility] pH, UA 6.5 5 - 9 [facility] Protein, UA Trace Negative - 1999(20) ++++ mg/dL [facility] Healthcare Spec Grav, UA 1.02 1 - 1.03 [facility] Urobilinogen, UA 0.2 0.2 - 12 mg/dL [facility] Urinalysis macro (dipstick) panel (U)on 10-18-2024 Bilirubin, UA Negative Negative - 4(70) +++ mg/dL [facility] Blood, UA Negative Negative - 50 Sam/mcL [facility] Healthcare Clarity, UA Clear [facility] Color, UA Yellow [facility] Glucose, UA Negative Negative - 1999(110) ++++ mg/dL [facility] Interpretation and review of laboratory results Normal [facility] Ketones, UA Negative Negative - 160(16) ++++ mg/dL [facility] Leukocytes, UA Negative Negative - 500+++ Supa/mcL [facility] Healthcare Nitrite, UA Negative Negative - Positive [facility] pH, UA 6 5 - 9 [facility] Health[facility] e Protein, UA Negative Negative - 1999(20) ++++ mg/dL [facility] Spec Grav, UA 1.03 1 - 1.03 [facility] Urobilinogen, UA 0.2 0.2 - 12 mg/dL [facility] RECURRENT VAGINITIS (HTRX)on 09-23-2024 ATOPOBIUM VAGINAE 21.[address] [facility]thcare ATOPOBIUM VAGINAE Detected Abnormal [facility] BVAB 2,3 (BACTERIAL VAGINOSIS ASSOCIATED BACTERIA 2, 3); MOBILUNCUS SPP 14.391 Abnormal [facility] BVAB 2,3 (BACTERIAL VAGINOSIS ASSOCIATED BACTERIA 2, 3); MOBILUNCUS SPP Detected Abnormal [facility] WILBERT ALBICANS, PARAPSILOSIS, TROPICALIS 0 [facility] WILBERT ALBICANS, PARAPSILOSIS, TROPICALIS Not detected [facility] WILBERT GLABRATA [address] [facility] WILBERT GLABRATA Not detected [facility] ealthcare WILBERT KRUSEI 0 [facility] WILBERT KRUSEI Not detected [facility] lthcare CHLAMYDIA TRACHOMATIS 0 [facility] CHLAMYDIA TRACHOMATIS Not detected [facility] ERMB, C; MEFA 22.056 Abnormal [facility] care ERMB, C; MEFA Detected Abnormal [facility] care GARDNERELLA VAGINALIS 27.529 Abnormal [facility] GARDNERELLA VAGINALIS Detected Abnormal [facility] Interpretation and review of laboratory results Abnormal [facility] re MEGASPHAERA (TYPES 1, 2) 15.923 Abnormal [facility] MEGASPHAERA (TYPES 1, 2) Detected Abnormal [facility] MYCOPLASMA GENITALIUM 0 [facility] MYCOPLASMA GENITALIUM Not detected [facility] NEISSERIA GONORRHOEAE 0 [facility] NEISSERIA GONORRHOEAE Not detected [facility] TET B, TET M 16.766 Abnormal [facility] Healthc are TET B, TET M Detected Abnormal [facility] Healthc are TRICHOMONAS VAGINALIS 0 [facility] TRICHOMONAS VAGINALIS Not detected [facility] GLUCOSE 1 HOURon 09-22-2024 Glucose [Mass/Vol] 114 mg/dL NINF - 13 0 mg/dL [facility] Healthcar e US OB 14+ WEEKS ANATOMY [...] II, MD, PHD at 19-Oct-2024 09:01:31 AM [facility] Normal Not Available Comment on above: Order Comment: US OB ANATOMY SINGLE W US OB CERVICAL LENGTH Estimated Date of Delivery: 03/03/25 Gestational Age as of 09/21/2024: 16w5d Urinalysis macro (dipstick) panel (U)Ordered By: Vicky Rodríguez on 09-21-2024 Bilirubin, UA Negative Negative - 4(70) +++ mg/dL [facility] Blood, UA Negative Negative - 50 Sam/mcL [facility] Healthcare Clarity, UA Clear [facility] Color, UA Yellow [facility] Health[facility] e Glucose, UA Negative Negative - 1999(110) ++++ mg/dL [facility] Interpretation and review of laboratory results Normal [facility] Ketones, UA Negative Negative - 160(16) ++++ mg/dL [facility] Leukocytes, UA Negative Negative - 500+++ Supa/mcL [facility] Nitrite, UA Negative Negative - Positive [facility] pH, UA 7.5 5 - 9 [facility] Healthcar e Protein, UA Negative Negative - 1999(20) ++++ mg/dL [facility] Spec Grav, UA 1.02 1 - 1.03 [facility] Urobilinogen, UA 0.2 0.2 - 12 mg/dL [facility] Urinalysis macro (dipstick) panel (U)on 08-17-2024 Bilirubin, UA Negative Negative - 4(70) +++ mg/dL [facility] Blood, UA Negative Negative - 50 Sam/mcL [facility] Healthcare Clarity, UA Clear [facility] Color, UA Yellow [facility] Healthcar e Glucose, UA Negative Negative - 1999(110) ++++ mg/dL [facility] Interpretation and review of laboratory results Abnormal [facility] Ketones, UA Negative Negative - 160(16) ++++ mg/dL [facility] Leukocytes, UA Positive Negative - 500+++ Supa/mcL [facility] Healthcare Comment on above: small Nitrite, UA Negative Negative - Positive [facility] pH, UA 6 5 - 9 [facility] Healthcar e Protein, UA Negative Negative - 1999(20) ++++ mg/dL [facility] Healthcare Spec Grav, UA 1.03 1 - 1.03 [facility] care Urobilinogen, UA 0.2 0.2 - 12 mg/dL [facility] MLR HEMOGLOBIN A1Con 08-05-2 024 Glucose [Mass/Vol] 111 mg/dL [facility] ealthcare HbA1c (Bld) [Mass fraction] 5.5 % 4.5 - 6.2 % [facility] Healthcare Comment on above: ADA RECOMMENDED LIMI T 4.0 - 6.0 ADA THERAPEUTIC TARGET < 7.0 ACTION SUGGESTED > 7.0 [facility] Urine Cultureon 08-05-2024 Bacteria identified Cx Nom (U) <9,000 colonies/ml mixed bacterial skin contaminants 2 Days PERFORMED BY: [facility] [address] [place] [address] PATHOLOGIST DRAW PRESS OPERATOR ELICEO SPENCER M.D. Normal [facility] Comment on above: Performed By: #### C UU #### [facility] [address] HCG ( test) Ql (U)o n 07-18-2024 Interpretation and review of laboratory results Abnormal [facility] Healthca re Preg Test, Ur Positive Negative [facility] care [facility] Health[facility] e Urinalysis macro (dipstick) panel (U)on 07-18-2024 Bilirubin, UA Negative Negative - 4(70) +++ mg/dL [facility] Blood, UA Negative Negative - 50 Sam/mcL [facility] Clarity, UA Clear [facility] Healthla re Color, UA Yellow [facility] Healthcar e Glucose, UA Negative Negative - 1999(110) ++++ mg/dL [facility] Interpretation and review of laboratory results Normal [facility] Healthla re Ketones, UA Negative Negative - 160(16) ++++ mg/dL [facility] Leukocytes, UA Negative Negative - 500+++ Supa/mcL [facility] Nitrite, UA Negative Negative - Positive [facility] pH, UA 6.5 5 - 9 [facility] Healthcar e Protein, UA Negative Negative - 1999(20) ++++ mg/dL [facility] Spec Grav, UA 1.02 1 - 1.03 [facility] Urobilinogen, UA 0.2 0.2 - 12 mg/dL [facility] TBH PREG QUANT HCGon 024 HCG QUANTITATIVE 203 mIU/mL [facility] Hea lthcare Comment on above: 5-50 0.2-1 WEEK 50-500 1-2 WEEKS 100-5,000 2-3 WEEKS 500-10,000 3-4 WEEKS 1,000-50,000 4-5 WEEKS 10,000-100,000 5-6 WEEKS 15,000-200,000 6-8 WEEKS 10,000-100,000 2-3 MONTHS [facility] Quick Strepon 09-17-2023 S. pyogenes Org specific cx Ql (Throat) positve [employer] Other Quick Strep [employer] Other Test, Urineon 08-11 Beta HCG ( test) Ql (U) Negative [employer] Other Capillary Glucose POCon Glucose [Mass/Vol] 94 mg/dL Normal 55-99 [facility] Comment on above: Result Comment: Loretta mcneal RN/ Performed By: #### 2 [id number] #### [facility] [address] [place] [address] Consent for Treatmenton Consent for Treatment [id number] 0TIFF [facility] Discharge Instructionson Discharge Instructions [id number] 0TIFF Normal [facility] ED Clinical Summaryon 2022 ED Clinical Summary [address] [address] ED Clinical Summary Person Information Name: FRANCES DOE/BannerFranco Age: 17 Years : 2005 Sex: Female Language: Ghanaian PCP: Hazel Grady MD Marital Status: Single [...] 07/14/2023 03:42:20 07/14/2023 03:42:20 07/14/2023 03:42:20 ADDRESS: [address] [place] [address] DR GERMAN [facility] [id number] PHYS DOC NOTES: MEDICAL INFORMATION: Prescriptions Given: New Medications [id number], [address] [place], [place] [id number], [phone] azithromycin (azithromycin 250 mg Tab) 1 Tablets By Mouth every day for 4 Days. Refills: 0. PATIENT EDUCATION INFORMATION: Instructions: Viral Illness, Adult; Otitis Media, Adult Follow up: With: Address: When: Hazel Lv [address] [place], [place] [id number] Business (2) In 7 days 07/21/2023 DIAGNOSIS: AOM (acute otitis media); Viral illness [facility] ED Note-Physicianon 07-14-20 ED Note-Physician Basic [...] day(s), # 4 tab(s), Refills(s) 0, Pharmacy: [id number], 175, cm, 07/13/23 23:42:00 EST, Height/Length Dosing, 121.7, kg, 07/13/23 23:42:00 EST, Weight Dosing Capillary Glucose POC Influenza A&B Ag Rapid COVID Antigen ([facility]) Resp.syn.virus (Rsv) XR Chest Single View Disposition Plan Discharge Prescription List Prescriptions azithromycin 250 mg Tab, 250 mg= 1 tab(s), Oral, Daily Follow-up With When Contact Information Hazel Grady In 7 days 07/21/2023 EST [address] [place] [address] [facility] (2) Additional Instructions: Patient Education [...] 94 mg/dL (07/14/23 02:00:00) POC Device SN: [id number] (07/14/23 02:00:00) POC User ID: [id number] (07/14/23 02:00:00) POC Username: POC Username (07/14/23 [...] By: Dom Sarmiento DO 07/14/2023 01:56:22 [facility] Comment on above: Result Comment: Elec tronically Signed By: Dom Sarmiento DO\.br\Date and Time Signed: 07/14/23 03:34 EST ED Patient Education Noteon 12-06-2023 ED Patient Education Note ENT Otitis Media, [...] Follow these instructions at home: ? Take [id number] and prescription medicines only as told by [...] provider. Document Revised: 11/03/2021 Document Reviewed: 11/03/2021 [employer] Patient Education ? 2022 [employer] Infectious Disease Viral Illness, Adult Viruses [...] cause illne (more content not included)... [facility] ED Patient Summaryon 023 ED Patient Summary [address] [address] Patient Discharge Instructions Person Information Name: FRANCES DOE Age: 17 Years Arrival Date: 07/13/2023 23:32:13 Discharge Diagnosis: AOM (acute otitis media); Viral illness Primary Care Physician: Hazel Grady MD Provider Information Primary Provider: Dom Sarmiento DO Advanced Loadmaster:None The exam and treatment you received in the Emergency Department were for an urgent problem and are not intended as complete care. It is important that you follow up with a doctor, nurse practitioner, or physician?s special ed assistant for ongoing care. If your symptoms [...] Follow-up Instructions: With: Address: When: [facility] [place] [address] [facility] (2) In 7 days 07/21/2023 In the event that this physician does not participate in your insurance network, please consult with your insurance company to find a nearby participating provider. Patient Education Materials: Viral Illness, Adult; Otitis Media, Adult A MESSAGE TO ALL PATIENTS REGARDING OPIOIDS PRESCRIPTION OPIOIDS: WHAT YOU NEED TO KNOW Prescription opioids can be used to help relieve tuimxifx-vc-pkihkh pain and are often prescribed following a [...] be struggling with addiction, tell your health childcare director and ask for guidance or call [facility]?S National Helpline at 9-050-673-FFLC. (more content not included)... [facility] Influenza A&B Agon 3 Influenzae A Ag Negative Normal Negative [facility] Comment on above: Performed By: #### 2 [id number] #### [facility] [address] [place] [address] Influenzae B Ag Negative Normal Negative [facility] Comment on above: Result Comment: Test sensitivity and specificity vary for age group, specimen type, antigen types, and prevalence of disease. Test results must be evaluated in conjunction with other clinical data available to the physician. Individuals who received nasally administered Influenza A vaccine may have positive test results up to 3 days after vaccination. Performed By: #### 2 [id number] #### [facility] [address] [place] [address] Prescriptions/Work Noteson 1 09-14-2022 Prescriptions/Work Notes [id number] 0TIFF [facility] Rapid COVID Antigen ([facility])on 07-14-2023 Rapid COV Int NEG Ctl Pass [facility] Comment on above: Performed By: #### 2 [id number] #### [facility] [address] [place] [address] Rapid COV Int POS Ctl Pass [facility] Comment on above: Performed By: #### 2 [id number] #### [facility] [address] [place] [address] SARS-CoV+SARS-CoV-2 (COVID-19) Ag IA.rapid Ql (Resp) Not detected Normal Not Detected [facility] Comment on above: Result Comment: The [employer] System for Rapid Detection of SARS-CoV-2 is [...] other viruses or pathogens; and, in the [facility], this test is only authorized for the duration of the declaration that circumstances exist justifying the authorization of emergency use of in vitro diagnostics for detection and/or diagnosis of the virus that causes COVID-19 under Section 564(b)(1) of the Act, 21 U.S.C. ? 360bbb-3(b)(1), unless the authorization is terminated or revoked sooner. Performed By: #### 2 [id number] #### [facility] [address] [place] [address] Resp.syn.virus (Rsv)on 07-14 RSV Ag IA.rapid Ql (Nph) Negative Normal Negative [facility] Comment on above: Performed By: #### 2 [id number] #### [facility] [address] [place] [address] XR Chest Single Viewon 07-14 XR Chest [...] mGy = na DAP = na [facility] 12-24-2022 Forms [id number] [facility] Vital Signs Date Time Vital Sign Value Performing Clinician Facility 01-11-2025 13:41-0400 Body weight 143.34 kg Maryanne FOWLER Work Phone: [facility] 01-11-2025 13:41-0400 Diastolic blood pressure 76 mm[Hg] Maryanne FOWLER Work Phone: [facility] 01-11-2025 13:41-0400 Systolic blood pressure 122 mm[Hg] Maryanne FOWLER Work Phone: [facility] 12-28-2024 10:20-0400 Body weight 139.82 kg Lingvist DO Work Phone: [facility] 12-28-2024 10:20-0400 Diastolic blood pressure 82 mm[Hg] Yogesh Laly DO Work Phone: [facility] 12-28-2024 10:20-0400 Systolic blood pressure 126 mm[Hg] Yogesh Ally DO Work Phone: [facility] 12-06-2024 13:53-0400 Body weight 139.71 kg Lynette Ozunaly [employer] Work Phone: [facility] 12-06-2024 13:53-0400 Diastolic blood pressure 70 mm[Hg] Lynette Mariscalerly [employer] Work Phone: [facility] 12-06-2024 13:53-0400 Systolic blood pressure 114 mm[Hg] Lynette Mariscalerly [employer] Work Phone: [facility] 11-15-2024 10:36-0400 Body weight 139.16 kg Yogesh Ally DO Work Phone: [facility] 11-15-2024 10:36-0400 Diastolic blood pressure 78 mm[Hg] Yogesh Ally DO Work Phone: [facility] 11-15-2024 10:36-0400 Systolic blood pressure 130 mm[Hg] Yogesh Ally DO Work Phone: [facility] 10-18-2024 14:37-0400 Body weight 136.99 kg Maryanne Covarrubias PA Work Phone: [facility] 10-18-2024 14:37-0400 Diastolic blood pressure 78 mm[Hg] Maryanne Covarrubias PA Work Phone: [facility] 10-18-2024 14:37-0400 Systolic blood pressure 130 mm[Hg] Maryanne Miesha PA Work Phone: [facility] 09-21-2024 16:43-0500 Body weight 136.9 kg Maryanne Covarrubias PA Work Phone: [facility] 09-21-2024 16:43-0500 Diastolic blood pressure 76 mm[Hg] Maryanne Covarrubias PA Work Phone: [facility] 09-21-2024 16:43-0500 Systolic blood pressure 118 mm[Hg] Maryanne Covarrubias PA Work Phone: [facility] 08-17-2024 11:52-0500 Body weight 138.8 kg Yogesh Ally DO Work Phone: [facility] 08-17-2024 11:52-0500 Diastolic blood pressure 78 mm[Hg] Yogesh Ally DO Work Phone: [facility] 08-17-2024 11:52-0500 Systolic blood pressure 122 mm[Hg] Yogesh Ally DO Work Phone: [facility] 07-18-2024 11:15-0500 Body weight 139.71 kg Noms Nurse [facility] 07-18-2024 11:15-0500 Diastolic blood pressure 74 mm[Hg] [facility] Nurse [facility] 07-18-2024 11:15-0500 Systolic blood pressure 118 mm[Hg] [facility] Nurse [facility] 09-17-2023 09:35-0500 Body height 175.26 cm Tiesha Flood Other [facility] Other 09-17-2023 09:35-0500 Body mass index (BMI) [Ratio] 40.16 kg/m2 Tiesha Flood Other [facility] Other 09-17-2023 09:35-0500 Body temperature 99.2 [degF] Tiesha Flood Other [facility] Other 09-17-2023 09:35-0500 Body weight 123.38 kg Tiesha Flood Other [facility] Other 09-17-2023 09:35-0500 Respiratory rate 18 /min Tiesha Flood Other [facility] Other 09-17-2023 09:35-0500 SaO2% (BldA) [Mass fraction] 97 % Tiesha Flood Other [facility] Other 09-02-2023 09:30-0500 Body height 175.26 cm Sheree Cheung Other [facility] Other 09-02-2023 09:30-0500 Body mass index (BMI) [Ratio] 40.21 kg/m2 Sheree Jonatan Other [facility] Other 09-02-2023 09:30-0500 Body weight 123.52 kg Sheree Jonatan Other [facility] Other 09-02-2023 09:30-0500 Diastolic blood pressure 78 mm[Hg] Sheree Cheung Other [facility] Other 09-02-2023 09:30-0500 Respiratory rate 18 /min Sheree Cheung Other [facility] Other 09-02-2023 09:30-0500 SaO2% (BldA) [Mass fraction] 97 % Sheree Jonatan Other [facility] Other 09-02-2023 09:30-0500 Systolic blood pressure 120 mm[Hg] Sheree Cheung Other [facility] Other 07-27-2023 09:30-0500 Body height 175.26 cm Sheree Cheung Other [facility] Other 07-27-2023 09:30-0500 Body mass index (BMI) [Ratio] 40.02 kg/m2 Sheree Cheung Other [facility] Other 07-27-2023 09:30-0500 Body weight 122.93 kg Sheree Cheung Other [facility] Other 07-27-2023 09:30-0500 Diastolic blood pressure 76 mm[Hg] Sheree Jonatan Other [facility] Other 07-27-2023 09:30-0500 Respiratory rate 16 /min Sheree Jonatan Other [facility] Other 07-27-2023 09:30-0500 SaO2% (BldA) [Mass fraction] 98 % Sheree Jonatan Other [facility] Other 07-27-2023 09:30-0500 Systolic blood pressure 120 mm[Hg] Sheree Jonatan Other [facility] Other 01-21-2022 15:35-0400 Body height 175.26 cm Almaz Huerta Other [facility] Other 01-21-2022 15:35-0400 Body mass index (BMI) [Ratio] 30.86 kg/m2 Almaz Benavidezmond Other [facility] Other 01-21-2022 15:35-0400 Body temperature 97.3 [degF] Almaz Benavidezmond Other [facility] Other 01-21-2022 15:35-0400 Body weight 94.8 kg Almaz Benavidezmond Other [facility] Other 01-21-2022 15:35-0400 Diastolic blood pressure 73 mm[Hg] lAmaz Benavidezmond Other [facility] Other 01-21-2022 15:35-0400 Respiratory rate 16 /min Almaz Benavidezmond Other [facility] Other 01-21-2022 15:35-0400 SaO2% (BldA) [Mass fraction] 97 % Almaz Huerta Other [facility] Other 01-21-2022 15:35-0400 Systolic blood pressure 133 mm[Hg] Almaz Huerta Other [facility] Other Encounters Encounter Date Encounter Type Care Provider Facility Start: 01-11-2025 End: 01-11-2025 Bamboo flowsheet Maryanne FOWLER Work Phone: [facility] Start: 01-11-2025 End: 01-11-2025 Bamboo flowsheet Maryanne FOWLER Work Phone: [facility] Start: 01-11-2025 End: 01-11-2025 Clinisync Result Encounter Maryanne FOWLER Work Phone: [facility] Unsolicited Start: 01-11-2025 End: 01-11-2025 Office outpatient visit 15 minutes Maryanne FOWLER Work Phone: [facility] Comment on above: Third trimester preg merly; 32 weeks gestation of ; Pruritus Start: 01-11-2025 End: 01-11-2025 ambulatory MARYANNE COVARRUBIAS Not Available Start: 01-06-2025 End: 01-06-2025 Clinisync Result Encounter [...] 12-06-2024 End: 12-06-2024 Bamboo flowsheet Lynette Lyric [employer] Work Phone: [facility] Start: 12-06-2024 End: 12-06-2024 Bamboo flowsheet Lynette Lyric [employer] Work Phone: [facility] Start: 12-06-2024 End: 12-06-2024 flow sheet Lynette Lyric [employer] Work Phone: [facility] Comment on [...] Start: 08-05-2024 End: 08-05-2024 ambulatory Sheree Cheung Facility:[facility] Start: 07-18-2024 End: 07-18-2024 ambulatory [facility] Ally Nurse [facility] Comment on above: GA: 7w3d Start: 06-26-2024 End: 06-26-2024 Clinisync Result Encounter Maryanne FOWLER Work Phone: [facility] Unsolicited Start: 06-26-2024 End: 06-26-2024 Clinisync Result Encounter Maryanne FOWLER Work Phone: [facility] Unsolicited Start: 09-17-2023 End: 09-17-2023 ambulatory Tiesha Flood Other [facility] Other Start: 09-17-2023 Office outpatient vi sit 15 minutes Tiesha Flood [facility] [place] Start: 09-02-2023 End: 09-02-2023 ambulatory Sheree Cheung Other [facility] Other Start: 09-02-2023 Office outpatient vi sit 25 minutes Sheree Cheung [facility] Start: 07-27-2023 End: 07-27-2023 ambulatory Sheree Jonatan Other [facility] Other Start: 07-27-2023 Encounter for genera l adult medical examination without abnormal findings Sheree Cheung [facility] [place] Start: 07-27-2023 Initial preventive medicine new pt age 18-39yrs Sheree Cheung [facility] Start: 07-14-2023 End: 07-14-2023 Emergency department patient visit Dom Sarmiento [place] [place]: 12-24-2022 ambulatory Dom Sarmiento Facility: [facility] Start: 04-06-2022 End: 04-06-2022 ambulatory HAZEL LOCKE PUTNEY Facility: Start: 01-21-2022 (URG) Urgent Care Visit Almaz romero [facility] [place] Start: 01-21-2022 End: 01-21-2022 ambulatory Almaz Huerta Other [facility] Other Procedures Date Procedure Procedure Detail Performing Clinician Start: 01-11-2025 ALL CBC WITH AUTO DIFF Maryanne Covarrubias PA Work Phone: Start: 01-06-2025 AMNISURE Yogesh Fazi o DO Work Phone: Start: 01-03-2025 US OB BPP W NON-STRESS Yogesh Ally DO Work Phone: Start: 12-28-2024 Urnls dip stick/tabl et rgnt non-auto w/o micrscp Yogesh Ally DO Work Phone: Start: 12-16-2024 ALL CBC WITH AUTO DIFF Yogesh Ally DO Work Phone: Start: 12-15-2024 TBH UA (CLEAN/CATCH) SPRAY GUN SIZER/MICRO IF IND. Yogesh Ally DO Work Phone: Start: 12-06-2024 Urnls dip stick/tabl et rgnt non-auto w/o micrscp Lynette Gunter [employer] Work Phone: Start: 11-30-2024 ALL CBC WITH [...] Treatment Date Care Activity Detail Author Start: 01-25-2025 End: 01-25-2025 Patient encounter procedure 01/25/2025 8:40 AM EDT Routine [facility] [address] [place] [address] Yogesh Canales, [address] [place] [address] [facility] Start: 01-11-2025 End: 01-11-2026 Bile acids, total Bile acids, total Lab Routine Pruritus Expected: 01/11/2025 (Approximate), Expires: 01/11/2026 [facility] Comment on above: Expected: 01/11/2025 (Approximate), Expires: 01/11/2026 Start: 01-11-2025 End: 01-11-2026 CBC W Auto Differential panel - Blood CBC and differential Lab Routine Pruritus Expected: 01/11/2025 (Approximate), Expires: 01/11/2026 [facility] Comment on above: Expected: 01/11/2025 (Approximate), Expires: 01/11/2026 Start: 01-11-2025 End: 01-11-2026 Hepatic function 2000 panel - Serum or Plasma Hepatic function panel Lab Routine Pruritus Expected: 01/11/2025 (Approximate), Expires: 01/11/2026 [facility] Comment on above: Expected: 01/11/2025 (Approximate), Expires: 01/11/2026 Start: 01-11-2025 End: 01-11-2026 Hepatitis C virus Ab [Presence] in Serum or Plasma by Immunoassay Hepatitis C antibody Lab Routine Pruritus Expected: 01/11/2025 (Approximate), Expires: 01/11/2026 [facility] Work Phone: Comment on above: Expected: 01/11/2025 (Approximate), Expires: 01/11/2026 Start: 01-11-2025 End: 01-11-2026 Thyrotropin [Units/volume] in Serum or Plasma TSH Lab Routine Pruritus Expected: 01/11/2025 (Approximate), Expires: 01/11/2026 [facility] Comment on above: Expected: 01/11/2025 (Approximate), Expires: 01/11/2026 Start: 01-11-2025 End: 01-11-2025 Patient encounter procedure [facility] Comment on above: Arrived Start: 12-28-2024 End: 06-30-2025 US biophysical profile w non stress test US biophysical profile w non stress test Imaging Routine Oligohydramnios in third trimester, fetus 1 of multiple gestation Expected: 12/28/2024 (Approximate), Expires: 06/30/2025 [facility] Work Phone: Comment on above: Expected: 12/28/2024 (Approximate), Expires: 06/30/2025 Start: 12-28-2024 End: 12-28-2024 Patient encounter procedure 12/28/2024 9:50 AM EDT Routine [facility] [address] [address] Yogesh Canales DO [address] [place], [place] [id number] [facility] Start: 12-28-2024 End: 12-28-2024 Professional / ancillary services management 12/28/2024 9:00 AM EDT Ancillary Procedure [facility] [address] [place] [phone] [facility] Start: 12-06-2024 End: 04-07-2025 [...] PM EDT Routine [facility] [address] [facility] [address] Yogesh Canales DO [address] [place] [address] [facility] Start: 10-18-2024 End: 10-18-2024 Patient encounter procedure 10/18/2024 2:30 PM EDT Routine [facility] [address] [facility] [place] [phone] Maryanne Covarrubias, PA [address] [place] [address] [facility] Start: 10-18-2024 End: 10-18-2024 Professional / ancillary services management 10/18/2024 1:00 PM EDT Ancillary Procedure [facility] [address] [place] [id number] [facility] Start: 09-21-2024 End: 09-21-2024 Patient encounter procedure 09/21/2024 3:20 PM EST Routine [facility] [address] [place] [address] Maryanne Covarrubias, PA [address] [place] [address] Arrived [facility] Comment on above: Arrived Start: 09-21-2024 End: 11-19-2024 Alpha fetoprotein, maternal Alpha fetoprotein, maternal Lab Routine Screening, , for anatomic survey Expected: 09/21/2024 (Approximate), Expires: 11/19/2024 [facility] Comment on above: Expected: 09/21/2024 (Approximate), Expires: 11/19/2024 Start: 09-21-2024 End: 09-21-2025 Measurement of glucose 1 hour after glucose challenge for glucose tolerance test Glucose tolerance, 1 hour Lab Routine Diabetes mellitus screening Expected: 09/21/2024 (Approximate), Expires: 09/21/2025 [facility] Comment on above: Expected: 09/21/2024 (Approximate), Expires: 09/21/2025 Start: 09-21-2024 End: 09-21-2025 US for US OB 14+ weeks anatomy scan Imaging Routine Screening, , for anatomic survey Expected: 09/21/2024, Expires: 09/21/2025 [facility] Comment on above: Expected: 09/21/2024 , Expires: 09/21/2025 Start: 09-21-2024 End: 09-21-2024 Patient encounter procedure 09/21/2024 9:30 AM EST Routine [facility] [address] [place] [address] Maryanne Covarrubias PA [address] [place] [address] [facility] Start: 08-17-2024 End: 08-17-2024 Patient encounter procedure [facility] Comment on above: Arrived Start: 07-18-2024 End: 07-18-2025 ABO/Rh ABO/Rh Lab Routine Missed menses , unspecified gestational age Expected: 07/18/2024 (Approximate), Expires: 07/18/2025 [facility] Comment on above: Expected: 07/18/2024 (Approximate), Expires: 07/18/2025 Start: 07-18-2024 End: 07-18-2025 Blood type and Indirect antibody screen panel - Blood Type and screen Lab Routine Missed menses , unspecified gestational age Expected: 07/18/2024 (Approximate), Expires: 07/18/2025 [facility] Work Phone: Comment on above: Expected: 07/18/2024 (Approximate), Expires: 07/18/2025 Start: 07-18-2024 End: 07-18-2025 Drugs of abuse panel - Urine by Screen method Rapid drug screen, urine Lab Routine , unspecified gestational age Encounter for supervision of normal first in first trimester Expected: 07/18/2024 (Approximate), Expires: 07/18/2025 [facility] Comment on above: Expected: 07/18/2024 (Approximate), Expires: 07/18/2025 Start: 07-18-2024 End: 07-18-2025 US Pelvis transvaginal US OB transvaginal Imaging Routine Missed menses Expected: 07/18/2024 (Approximate), Expires: 07/18/2025 [facility] Comment on above: Expected: 07/18/2024 (Approximate), Expires: 07/18/2025 Start: 07-18-2024 End: 07-18-2024 ambulatory 07/18/2024 10:30 AM EST Initial [facility] [address] [place] [address] [facility] Start: 07-18-2024 End: 07-18-2024 Professional / ancillary services management 07/18/2024 10:00 AM EST Ancillary Procedure [facility] [address] [place] [address] [facility] Bacteria identified in Urine by Culture Urine culture Microbiology Routine Missed menses Ordered: 07/18/2024 [facility] Comment on above: Ordered: 07/18/2024 CBC W Auto Differential panel - Blood CBC and differential Lab Routine Missed menses , unspecified gestational age Ordered: 07/18/2024 [facility] Comment on above: Ordered: 07/18/2024 CHLAMYDIA TRACHOMATI S (GENITO/STI) CHLAMYDIA TRACHOMATIS (GENITO/STI) Lab Routine STD exposure Vaginal discharge Ordered: 09/21/2024 [facility] Comment on above: Ordered: 09/21/2024 Hemoglobin A1c/Hemoglobin.total in Blood Hemoglobin A1c Lab Routine Missed menses , unspecified gestational age Ordered: 07/18/2024 [facility] Comment on above: Ordered: 07/18/2024 Hepatitis B virus surface Ag [Presence] in Serum or Plasma by Immunoassay Hepatitis B surface antigen Lab Routine Missed menses , unspecified gestational age Ordered: 07/18/2024 [facility] Comment on above: Ordered: 07/18/2024 Hepatitis C virus Ab [Presence] in Serum or Plasma by Immunoassay Hepatitis C antibody Lab Routine Missed menses , unspecified gestational age Ordered: 07/18/2024 [facility] Comment on above: Ordered: 07/18/2024 HIV-1/HIV-2 antigen/antibody combination immunoassay HIV-1 and HIV-2 antibodies Lab Routine Missed menses , unspecified gestational age Ordered: 07/18/2024 [facility] [facility] Comment on above: Ordered: 07/18/2024 Neisseria gonorrhoea e DNA [Presence] in Unspecified specimen by ISAURO with probe detection Neisseria gonorrhea DNA probe, direct Lab Routine STD exposure Vaginal discharge Ordered: 09/21/2024 [facility] Comment on above: Ordered: 09/21/2024 Reagin Ab [Presence] in Serum by RPR RPR Lab Routine Missed menses , unspecified gestational age Ordered: 07/18/2024 [facility] Comment on above: Ordered: 07/18/2024 Rubella antibody, IgG Rubella an tibody, IgG Lab Routine Missed menses , unspecified gestational age Ordered: 07/18/2024 [facility] Comment on above: Ordered: 07/18/2024 SURESWAB(R) ADVANCED VAGINITIS PLUS, TMA SURESWAB(R) ADVANCED VAGINITIS PLUS, TMA Pathology and Cytology Routine STD exposure Vaginal discharge Ordered: 09/21/2024 [facility] Work Phone: Comment on above: Ordered: 09/21/2024 Immunizations Immunization Date Immunization Notes Care Provider Chase sequeira 03-17-2021 Human Papillomavirus 9-valent vaccine Almaz Deanna Other [facility] Other 02-10-2021 Do not use COVID-19 Pfizer 2 dose Almaz Deanna Other [facility] Other 08-04-2016 Human Papillomavirus 9-valent vaccine Almaz Deanna Other [facility] Other 05-22-2016 Human Papillomavirus 9-valent vaccine Almaz Deanna Other [facility] Other 07-29-2015 hepatitis A vaccine, pediatric/adolescent dosage, 2 dose schedule Almaz Deanna Other [facility] Other 04-02-2007 hepatitis A vaccine, pediatric/adolescent dosage, 2 dose schedule Almaz Deanna Other [facility] Other 04-14-2005 diphtheria, tetanus toxoids and acellular pertussis vaccine, 5 pertussis antigens Almaz Deanna Other [facility] Other 10-09-2004 measles, mumps and rubella virus vaccine Almaz Deanna Other [facility] Other 04-21-2004 DTaP-hepatitis B and poliovirus vaccine Almaz Deanna Other [facility] Other 04-21-2004 haemophilus influenz ae type b vaccine, PRP-T conjugate Almaz Deanna Other [facility] Other 02-19-2004 DTaP-hepatitis B and poliovirus vaccine Almaz Deanna Other [facility] Other 02-19-2004 haemophilus influenz ae type b vaccine, PRP-T conjugate Almaz Deanna Other [facility] Other 2003 DTaP-hepatitis B and poliovirus vaccine Almaz Deanna Other [facility] Other 2003 haemophilus influenz ae type b vaccine, PRP-T conjugate Almaz Deanna Other [facility] Other 2003 hepatitis B vaccine, pediatric or pediatric/adolescent dosage Almaz Huerta Other [facility] Other Payers Date Payer Category Payer Self-pay 2021 Private Health Insurance 2003 Unknown [id number] 2.16.8 [id number] 2003 Unknown [id number] 2.16.8 [id number] 2003 Unknown [id number] 2.16.84 0.1.343753.3.579.2.1259 2003 Unknown [id number] 2.16.84 0.1.958961.3.579.2.1259 2003 Unknown [id number] 2.16.84 0.1.343522.3.579.2.1259 2003 Unknown [id number] 2.16.84 0.1.640499.3.579.2.1259 2003 Unknown [id number] 2.16.84 0.1.606610.3.579.2.9 2003 Unknown [id number] 2.16.84 0.1.703546.3.579.2.1259 2003 Unknown [id number] 2.16.84 0.1.793581.3.579.2.1259 2003 Unknown [id number] 2.16.84 0.1.413402.3.579.2.1259 2003 Unknown [id number] 2.16.84 0.1.251206.3.579.2.1259 2003 Unknown [id number] 2.16.84 0.1.841199.3.579.2.1259 1959 Unknown [id number] 1959 Unknown [id number] 1959 Unknown [id number] 2.16.84 0.1.071839.3.579.2.593 Unknown [id number] 2.16.8 40.1.208550.3.579.2.531 Social History Date Type Detail Facility Unknown if ever smoked [facility] Other Sex Assigned At [facility] Other Tobacco smoking status MIIS Tobacco smoking consumption unknown [facility] Start: 2005 Sex assigned at Not on file [facility] Start: 06-10-2024 [facility] Clinical Notes 01-21-2022 to 01-11-2025 Maryanne Covarrubias, JANETH - 01/11/2025 1:30 PM EDDevendra Rodríguez, ASSEMBLER PRODUCTION LINE - 12/28/2024 9:50 AM EDTLynette Gunter NP - 12/06/2024 1:20 PM EDTAparna Vasquez, ASSEMBLER [employer]ODUCTION LINE - 11/15/2024 10:50 AM EDT Note Date & Type Note Facility 01-11-2025 History of Presen t illness Narrative Reason [...] of: JANETH Ji documented in this encounter [facility] 12-28-2024 History of Presen t illness Narrative [...] nursing note reviewed. Exam conducted with a professor of environmental engineering present. Vitals: There is no height or [...] to pt about NST/BPP. Orders sent to [facility] Documented by Vicky Rodríguez LPN on behalf of: Yogesh Canales DO documented in this encounter [facility] 12-06-2024 History of Presen t illness Narrative [...] nursing note reviewed. Exam conducted with a professor of environmental engineering present. Vitals: There is no height or [...] Lynette Gunter NP documented in this encounter [facility] 11-15-2024 History of Presen t illness Narrative [...] nursing note reviewed. Exam conducted with a professor of environmental engineering present. Vitals: There is no height or [...] Yogesh Canales DO documented in this encounter [facility] 10-18-2024 History of Presen t illness Narrative [...] of: JANETH Ji documented in this encounter [facility] 09-21-2024 History of Presen t illness Narrative [...] obtained without difficulty and patient was given [facility] order to have obtained. Orders Placed This [...] of: JANETH Ji documented in this encounter [facility] 08-17-2024 History of Presen t illness Narrative [...] nursing note reviewed. Exam conducted with a professor of environmental engineering present. Vitals: There is no height or [...] or undercooked meat, and stay away from [facility]. Patient has been consulted regarding any further [...] Yogesh Canales DO documented in this encounter [facility] 07-18-2024 History of Presen t illness Narrative [...] or undercooked meat, and stay away from [facility]. Patient has also been advised to not [...] Jazmyne Oliveira MA documented in this encounter [facility] 09-17-2023 Evaluation note Encounter Date Diagnosis Assessment [...] understanding and is agreeable to treatment plan. [facility] Other 01-25-2024 Evaluation note* Encounter Date Diagnosis [...] and no personal patient information was compromised. [facility] Other 12-19-2023 Evaluation note* Encounter Date Diagnosis [...] (ICD-10 - F32.1) See above treatment plan. [facility] Other 06-15-2022 Evaluation note* Encounter Date Diagnosis Assessment Notes Treatment Notes Treatment Clinical Notes Jan, Pre-employment examination (ICD-10 - Z02.1) [facility] Other Evaluation note* Diagnosis Missed menses , [...] multiple gestation [facility] Third trimester state, incidental 32 weeks gestation of Pruritus Unspecified pruritic disorder [facility] - Reported* Type Description Date Medical History vertigo [facility] Other Reason for referral (narrative)* Reason Refer to [facility] or counseling for anxiety and depression Diagnosis 1 MATTHIAS (generalized anx iety disorder) (F41.1) Referral Organization [facility] Wick Referring Provider First Name Sheree Referring Provider Last Name Jonatan Referring Provider Specialty Nurse Praclaura grullon Referred Provider Specialty Psychiatry Referral Priority Routine [facility] Other Summary Purpose Family History No Family [...] DATE CREATED AUTHOR AUTHOR'S ORGANIZ ATION 08/13/2023 [facility] DATE CREATED AUTHOR AUTHOR'S ORGANIZ ATION 08/09/2024 [facility] DATE CREATED AUTHOR AUTHOR'S ORGANIZ ATION 01/12/2025 [facility] [employer] Care Teams (unrecognized sec tion and content) Laundry Pricing Clerk Relationship Specialty Start Date End Date Hazel Grady MD [address] [place] [address] PCP - General Family Medicine 07/18/24 Laundry Pricing Clerk Relationship Specialty Start Date End Date Hazel Grady MD [address] [place] [address] PCP - General Family Medicine 07/18/24 Laundry Pricing Clerk Relationship Specialty Start Date End Date Hazel Grady MD [address] [place] [address] PCP - General Family Medicine 07/18/24 Laundry Pricing Clerk Relationship Specialty Start Date End Date Hazel rGady MD [address] [place] [address] PCP - General Family Medicine 07/18/24 Laundry Pricing Clerk Relationship Specialty Start Date End Date Hazel Grady MD [address] [place] [address] PCP - General Family Medicine 07/18/24 Laundry Pricing Clerk Relationship Specialty Start Date End Date Hazel Grady MD [address] [place] [address] PCP - General Family Medicine 07/18/24 Laundry Pricing Clerk Relationship Specialty Start Date End Date Hazel Grady MD [address] [place] [address] PCP - General Family Medicine 07/18/24 Laundry Pricing Clerk Relationship Specialty Start Date End Date Hazel Grady MD [address] [facility] [place] [address] PCP - [facility] 07/18/24 Laundry Pricing Clerk Relationship Specialty Start Date End Date Hazel Grady MD [address] [place] [place] [address] PCP - [facility] 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 [employer] [facility]. provides no warranty or guarantee of the accuracy or completeness of information in this document.
[2025-01-13 10:17] VITALS: TEMP 36.7
[2025-01-13 10:18] VITALS: BP 115/63; PULSE 103
== END 2025-01-13 10:55 | disposition home or self-care (01) ==
LOC: FBCO 10:01 → FBC 10:03
PROVIDERS: PCP Family Medicine; Visit Provider Obstetrics & Gynecology
DX: O41.03X0 Oligohydramnios, third trimester, not applicable or unspecified (principal); Z3A.35 35 weeks gestation of pregnancy
CPT/HCPCS: 59025

== ENCOUNTER 2025-01-17 10:00 | Outpatient (OUT) | payer OTHER, SELFPAY ==
--- NOTE | 2025-01-17 10:07 | US_ITS ---
The [address] [address] Patient Name: JIMBO DOE MRN: [id number] date: 2005 Sex: F Assigned Patient Location: [facility] Current Patient Location: [facility] Accession/Order Number: [id number] Exam Date: 01/17/2025 10:50 Report Date: 01/17/2025 10:51 At the request of: YOGESH CALI DO Procedure: US OB BPP w non-stress BIOPHYSICAL PROFILE: CLINICAL INFORMATION: oligohydramnios COMPARISON: 01/10/2025 There is a single live intrauterine gestation in cephalic presentation. The reported gestational age is 33 weeks 4 days. The heart rate [id number] beats per minute. FINDINGS: TONE: 1 or more episodes of activity extension and flexion of extremity or opening and closing of the hand [Y] 2/2 GROSS BODY MOVEMENTS: 3 or more discrete body or limb movements [Y] 2/2 BREATHING MOVEMENTS: 1 or more episodes of breathing lasting at least 30 seconds [Y] 2/2 JEROD: A single deepest vertical pocket of amniotic fluid greater than 2 cm [Y] 2/2 JEROD: 11.1 cm. This is in low-normal range (5th percentile 8.2 cm). Total score: 8/8 US/ OB BPP w non-stress IMPRESSION: NORMAL BIOPHYSICAL PROFILE. Impression dictated by: Aparna Nascimento M.D. 01/17/2025 10:51 AM Dictation Location: [place] [address] Electronically authenticated by: [id number] Y Date: 01/17/2025 10:51
--- OUTSIDE RECORDS SUMMARY | 2025-01-17 10:14 | XMS_ITS | CCD ---
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 Name Role Phone Almaz Huerta Unavailable HAZEL GRADY Primary Care Unavailable CHRISTIANO TATUM Attending Unavailable CHRISTIANO TAUTM Consulting Unavailable CHRISTIANO TATUM Admitting Unavailable Sheree [...] Translations: [amoxicillin] Drug Allergy 4 swelling, Rash [facility] Repository (1 source) Amoxicillin Drug Allergy 6 [facility] Repository (1 source) Amoxicillin Drug Allergy 4 [facility] Repository Medications Current Medications Medication Drug Class(es) [...] WITH AUTO DIFFon BASOPHILS ABSOLUTE AUTO 0 [facility] Basophils/100 WBC (Bld) 0.1 % Low 0.2 - 2.0 % [facility] Eosinophils/100 WBC (Bld) 0.2 % Low 0.9 - 7.0 % [facility] Erythrocyte distribution width (RBC) [Ratio] 13 % 11.0 - 15.0 % [facility] Hematocrit (Bld) [Volume fraction] 31.2 % Low 36.0 - 48.0 % [facility] Hem[facility] (Bld) [Mass/Vol] 10.3 g/dL Low 12.0 - 16.0 g/dL [facility] IMMATURE GRANULOCYTES ABS AUTO 0.02 [facility] Immature granulocytes/100 WBC (Bld) 0.2 % 0.0 - 0.5 % [facility] Interpretation and review of laboratory results Abnormal [facility] LYMPHOCYTES ABSOLUTE AUTO 1.4 [facility] Lymphocytes/100 WBC (Bld) 14.2 % Low 20.5 - 60.0 % [facility] MCH (RBC) [Entitic mass] 27.2 pg 26.7 - 34.0 pg [facility] MCHC (RBC) [Mass/Vol] 33 g/dL 29.9 - [...] OB BPP W NON-STRESS on 01-03-2025 [place] [address] Ultrasound Report Signed Patient: FRANCES DOE MR#: [id number] : 2005 Acct:[id number] Age/Sex: 19 / F ADM Date: 01/03/25 Loc: [facility] 251-[address]: Yogesh Canales D.O. Ordering Physician: Yogesh Canales D.O. Date of Service: 01/03/25 Procedure(s): US OB BPP w non-stress Accession Number(s): [id number] cc: Yogesh Canales D.O.; HAZEL GRADY The [place] [address] Patient Name: FRANCES DOE MRN: [facility]:[id number] date: 2005 Sex: F Assigned Patient Location: [facility] Current Patient Location: [facility] Accession/Order Number: [id number] Exam Date: 01/03/2025 10:37 Report Date: 01/03/2025 10:43 At the request of: YOGESH CANALES DO Procedure: US OB BPP w non-stress BIOPHYSICAL PROFILE: CLINICAL INFORMATION: Oligohydramnios O41.03x1 COMPARISON: 07/18/2024 There is a single live intrauterine gestation in cephalic presentation. The reported gestational age is 31 weeks 4 days. The heart rate [id number] beats per minute. FINDINGS: TONE: 1 or [...] 01/03/2025 10:43 AM Dictation Location: [place] [address] Electronically authenticated by: [id number] Y Date: 01/03/2025 10:43 Dictated By: Aparna Nascimento M.D. 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 Ordering Physician: Yogesh Canales D.O. Date of Service: 01/03/25 Procedure(s): US OB BPP w non-stress Accession Number(s): [id number] cc: Yogesh Canales D.O.; HAZEL GRADY The [place] [address] Patient Name: FRANCES DOE MRN: [id number] date: 2005 Sex: F Assigned Patient Location: [facility] Current Patient Location: [facility] Accession/Order Number: [id number] Exam Date: 01/03/2025 10:37 Report Date: 01/03/2025 10:43 At the request of: YOGESH CANALES DO Procedure: US OB BPP w non-stress BIOPHYSICAL PROFILE: CLINICAL INFORMATION: Oligohydramnios O41.03x1 COMPARISON: 07/18/2024 There is a single live intrauterine gestation in cephalic presentation. The reported gestational age is 31 weeks 4 days. The heart rate [id number] beats per minute. FINDINGS: TONE: 1 or [...] 01/03/2025 10:43 AM Dictation Location: [place] [address] Electronically authenticated by: [id number] Y Date: 01/03/2025 10:43 Dictated By: Aparna Nascimento M.D. Signed By: 01/03/25 1046 DD/ 1043 TD/TT: Brassiere Cup Mold Cutter: [facility] Pixel [employer] Radiology Study observation (narrative) [facility] US OB BPP W NON-STRESS Ordered By: Radiologist Radiology on 01-03-2025 [facility] [employer] Work Phone: US OB FOLLOW UP [...] II, MD, PHD at 29-Dec-2024 12:17:39 PM [facility] [place] [facility] Normal Not Available Comment on above: Order Comment: US OB SCAN FOR GROWTH Estimated Date of Delivery: 03/03/25 Gestational Age as of 12/06/2024: 27w4d Urinalysis macro (dipstick) panel (U)on 12-28-2024 Bilirubin, UA Negative Negative - 4(70) +++ mg/dL [facility] Blood, UA Negative Negative - 50 Sam/mcL [facility] Clarity, UA Clear [facility] Color, UA Yellow [facility] Glucose, UA Negative Negative - 1999(110) ++++ mg/dL [facility] Interpretation and review of laboratory results Abnormal [facility] Ketones, UA Negative Negative - 160(16) ++++ mg/dL [facility] Leukocytes, UA Positive Negative - 500+++ Supa/mcL [facility] Comment on above: small Nitrite, UA Negative Negative - Positive [facility] pH, UA 7 5 - 9 [facility] Protein, UA Positive Negative - 1999(20) ++++ mg/dL [facility] Comment on above: 30mg/dL Spec Grav, UA 1.015 1 - 1.03 [facility] Urobilinogen, UA 0.2 0.2 - 12 mg/dL [facility] ALL CBC WITH AUTO DIFFon BASOPHILS ABSOLUTE AUTO 0 [facility] Basophils/100 WBC (Bld) 0.2 % 0.2 - 2.0 % [facility] Eosinophils/100 WBC (Bld) 0.4 % Low 0.9 - 7.0 % [facility] Erythrocyte distribution width (RBC) [Ratio] 12.7 % 11.0 - 15.0 % [facility] Hematocrit (Bld) [Volume fraction] 34 % Low 36.0 - 48.0 % [facility] e Hemoglobin (Bld) [Mass/Vol] 11.5 g/dL Low 12.0 - 16.0 g/dL [facility] IMMATURE GRANULOCYTES ABS AUTO 0.06 High [facility] Immature granulocytes/100 WBC (Bld) 0.5 % 0.0 - 0.5 % [facility] Interpretation and review of laboratory results Abnormal [facility] re LYMPHOCYTES ABSOLUTE AUTO 2.5 [facility] Lymphocytes/100 WBC (Bld) 19.6 % Low 20.5 - 60.0 % [facility] MCH (RBC) [Entitic mass] 28 pg 26.7 - 34.0 pg [facility] MCHC (RBC) [Mass/Vol] 33.8 g/dL 29.9 - 35.2 g/dL [facility] MCV (RBC) [Entitic vol] 82.7 fL 81.0 - 99.0 fL [facility] MONOCYTES ABSOLUTE AUTO 0.8 [facility] Monocytes/100 WBC (Bld) 6.5 % 1.7 - 12.0 % [facility] NEUTROPHILS ABSOLUTE AUTO 9.3 High [facility] Neutrophils/100 WBC (Bld) 72.8 % 43.0 - 75.0 % [facility] Platelet mean volume (Bld) [Entitic vol] 9.5 fL 9.5 - 13.5 fL [facility] TBH EO # 0.1 [facility] TBH PLT 306 [facility] RBC 4.11 Low [facility] TBH WBC 12.7 High [facility] TB UA (CLEAN/CATCH) 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 YELLOW YELLOW [facility] GLUCOSE URINE UA Negative NEGATIVE mg/dL [facility] Interpretation and review of laboratory results Abnormal [facility] re Ketones Ql (U) Negative NEGATIVE mg/dL [facility] Leukocyte esterase Test strip Ql (U) LARGE Abnormal NEGATIVE [facility] NITRITE URINE Negative NEGATIVE [facility] care pH (U) 7.0 [pH] 5.0 - 9.0 [facility] e PROTEIN URINE Negative NEG/TRACE mg/dL [facility] SPECIFIC GRAVITY URINE <=1.005 Abnormal 1.005 - 1.025 [facility] URINE MICROSCOPIC INDICATED YES [facility] UROBILINOGEN URINE 0.2 EU/dL 0.2 - 1.0 EU/dL [facility] Urinalysis macro (dipstick) panel (U)on 12-06-2024 Bilirubin, UA Negative Negative - 4(70) +++ mg/dL [facility] Blood, UA Negative Negative - 50 Sam/mcL [facility] Clarity, UA Clear [facility] re Color, UA Yellow [facility] e Glucose, UA Negative Negative - 1999(110) ++++ mg/dL [facility] Interpretation and review of laboratory results Abnormal [facility] re Ketones, UA Positive Negative - 160(16) ++++ mg/dL [facility] Comment on above: trace Leukocytes, UA Trace Negative - 500+++ Supa/mcL [facility] Nitrite, UA Negative Negative - Positive [facility] pH, UA 5.5 5 - 9 [facility] e Protein, UA Negative Negative - 1999(20) ++++ mg/dL [facility] Spec Grav, UA 1.03 1 - 1.03 [facility] Urobilinogen, UA 0.2 0.2 - 12 mg/dL [facility] ALL CBC WITH AUTO DIFFon BASOPHILS ABSOLUTE AUTO 0 [facility] Basophils/100 WBC (Bld) 0.2 % 0.2 - 2.0 % [facility] Eosinophils/100 WBC (Bld) 0.3 % Low 0.9 - 7.0 % [facility] Erythrocyte distribution width (RBC) [Ratio] 12.8 % 11.0 - 15.0 % [facility] Hematocrit (Bld) [Volume fraction] 34 % Low 36.0 - 48.0 % [facility] Hemoglobin (Bld) [Mass/Vol] 11.2 g/dL Low 12.0 - 16.0 g/dL [facility] IMMATURE GRANULOCYTES ABS AUTO 0.05 High [facility] Immature granulocytes/100 WBC (Bld) 0.4 % 0.0 - 0.5 % [facility] Interpretation and review of laboratory results Abnormal [facility] LYMPHOCYTES ABSOLUTE AUTO 2.1 [facility] Lymphocytes/100 WBC (Bld) 17.3 % Low 20.5 - 60.0 % [facility] MCH (RBC) [Entitic mass] 27.7 pg 26.7 - 34.0 pg [facility] MCHC (RBC) [Mass/Vol] 32.9 g/dL 29.9 - 35.2 g/dL [facility] MCV (RBC) [Entitic vol] 84 fL 81.0 - 99.0 fL [facility] MONOCYTES ABSOLUTE AUTO 0.8 [facility] Monocytes/100 WBC (Bld) 6.6 % 1.7 - 12.0 % [facility] NEUTROPHILS ABSOLUTE AUTO 8.9 High [facility] Neutrophils/100 WBC (Bld) 75.2 % High 43.0 - 75.0 % [facility] Platelet mean volume (Bld) [Entitic vol] 9.1 fL Low 9.5 - 13.5 fL [facility] TBH EO # 0 [facility] TBH PLT 281 [facility] TBH RBC 4.05 Low [facility] TBH WBC 11.8 High [facility] US OB LIMITED 1+ FETUSESon [...] II, MD, PHD at 17-Nov-2024 06:24:10 AM [facility] [place] [facility] Normal Not Available Comment on above: Order Comment: US OB INCOMPLETE ANATOMY Estimated Date of Delivery: 03/03/25 Gestational Age as of 11/01/2024: 22w4d Urinalysis macro (dipstick) panel (U)on 11-15-2024 Bilirubin, UA Negative Negative - 4(70) +++ mg/dL [facility] Blood, UA Negative Negative - 50 Sam/mcL [facility] Clarity, UA Clear [facility] Color, UA Yellow [facility] Glucose, UA Negative Negative - 1999(110) ++++ mg/dL [facility] Interpretation and review of laboratory results Abnormal [facility] Ketones, UA Negative Negative - 160(16) ++++ mg/dL [facility] Healthcare Leukocytes, UA Trace Negative - 500+++ Supa/mcL [facility] Healthcare Nitrite, UA Negative Negative - Positive [facility] pH, UA 6.5 5 - 9 [facility] Protein, UA Trace Negative - 1999(20) ++++ mg/dL [facility] Healthcare Spec Grav, UA 1.02 1 - 1.03 [facility] Urobilinogen, UA 0.2 0.2 - 12 mg/dL [facility] Urinalysis macro (dipstick) panel (U)on 10-18-2024 Bilirubin, UA Negative Negative - 4(70) +++ mg/dL [facility] Blood, UA Negative Negative - 50 Sam/mcL [facility] Clarity, UA Clear [facility] Color, UA Yellow [facility] Glucose, UA Negative Negative - 1999(110) ++++ mg/dL [facility] Interpretation and review of laboratory results Normal [facility] Ketones, UA Negative Negative - 160(16) ++++ mg/dL [facility] Leukocytes, UA Negative Negative - 500+++ Supa/mcL [facility] Nitrite, UA Negative Negative - Positive [facility] pH, UA 6 5 - 9 [facility] Protein, UA Negative Negative - 1999(20) ++++ mg/dL [facility] Spec Grav, UA 1.03 1 - 1.03 [facility] Urobilinogen, UA 0.2 0.2 - 12 mg/dL [facility] RECURRENT VAGINITIS (HTRX)on 09-23-2024 ATOPOBIUM VAGINAE 21.837 Abnormal [facility]care ATOPOBIUM VAGINAE Detected Abnormal [facility] BVAB 2,3 (BACTERIAL VAGINOSIS ASSOCIATED BACTERIA 2, 3); MOBILUNCUS SPP 14.391 Abnormal [facility] BVAB 2,3 (BACTERIAL VAGINOSIS ASSOCIATED BACTERIA 2, 3); MOBILUNCUS SPP Detected Abnormal [facility] WILBERT ALBICANS, PARAPSILOSIS, TROPICALIS 0 [facility] WILBERT ALBICANS, PARAPSILOSIS, TROPICALIS Not detected [facility] WILBERT GLABRATA 0 [facility] WILBERT GLABRATA Not detected [facility] ealthcare [facility]I [facility] WIL[facility]ERT KRUSEI Not detected [facility]care CHLAMYDIA TRACHOMATIS 0 [facility] CHLAMYDIA TRACHOMATIS Not detected [facility] ERMB, C; MEFA 22.056 Abnormal [facility] care ERMB, C; MEFA Detected Abnormal [facility] care GARDNERELLA VAGINALIS 27.529 Abnormal [facility] GARDNERELLA VAGINALIS Detected Abnormal [facility] Interpretation and review of laboratory results Abnormal [facility] re MEGASPHAERA (TYPES 1, 2) 15.923 Abnormal [facility] MEGASPHAERA (TYPES 1, 2) Detected Abnormal [facility] MYCOPLASMA GENITALIUM 0 [facility] MYCOPLASMA GENITALIUM Not detected [facility] NEISSERIA GONORRHOEAE 0 [facility] NEISSERIA GONORRHOEAE Not detected [facility] TET B, TET M 16.766 Abnormal [facility] Healthc are TET B, TET M Detected Abnormal [facility] Healthc are TRICHOMONAS VAGINALIS 0 [facility] TRICHOMONAS VAGINALIS Not detected [facility] e GLUCOSE 1 HOURon 09-22-2024 Glucose [Mass/Vol] 114 mg/dL NINF - 13 0 mg/dL [facility] e US OB 14+ WEEKS ANATOMY [...] II, MD, PHD at 19-Oct-2024 09:01:31 AM [facility] [place] [facility] Normal Not Available Comment on above: Order Comment: US OB ANATOMY SINGLE W US OB CERVICAL LENGTH Estimated Date of Delivery: 03/03/25 Gestational Age as of 09/21/2024: 16w5d Urinalysis macro (dipstick) panel (U)Ordered By: Vicky Rodríguez on 09-21-2024 Bilirubin, UA Negative Negative - 4(70) +++ mg/dL [facility] Blood, UA Negative Negative - 50 Sam/mcL [facility] Healthcare Clarity, UA Clear [facility] Color, UA Yellow [facility] Glucose, UA Negative Negative - 1999(110) ++++ mg/dL [facility] Interpretation and review of laboratory results Normal [facility] Ketones, UA Negative Negative - 160(16) ++++ mg/dL [facility] Leukocytes, UA Negative Negative - 500+++ Supa/mcL [facility] Nitrite, UA Negative Negative - Positive [facility] pH, UA 7.5 5 - 9 [facility] Protein, UA Negative Negative - 1999(20) ++++ mg/dL [facility] Spec Grav, UA 1.02 1 - 1.03 [facility] Urobilinogen, UA 0.2 0.2 - 12 mg/dL [facility] Urinalysis macro (dipstick) panel (U)on 08-17-2024 Bilirubin, UA Negative Negative - 4(70) +++ mg/dL [facility] Blood, UA Negative Negative - 50 Sam/mcL [facility] Clarity, UA Clear [facility] Color, UA Yellow [facility] Glucose, UA Negative Negative - 1999(110) ++++ mg/dL [facility] Interpretation and review of laboratory results Abnormal [facility] Ketones, UA Negative Negative - 160(16) ++++ mg/dL [facility] Leukocytes, UA Positive Negative - 500+++ Supa/mcL [facility] Healthcare Comment on above: small Nitrite, UA Negative Negative - Positive [facility] pH, UA 6 5 - 9 [facility] Protein, UA Negative Negative - 1999(20) ++++ mg/dL [facility] Healthcare Spec Grav, UA 1.03 1 - 1.03 [facility] care Urobilinogen, UA 0.2 0.2 - 12 mg/dL [facility] MLR HEMOGLOBIN A1Con 08-05-2 024 Glucose [Mass/Vol] 111 mg/dL [facility] ealthcare HbA1c (Bld) [Mass fraction] 5.5 % 4.5 - 6.2 % [facility] Healthcare Comment on above: ADA RECOMMENDED LIMI T 4.0 - 6.0 ADA THERAPEUTIC TARGET < 7.0 ACTION SUGGESTED > 7.0 [facility] Urine Cultureon 08-05-2024 Bacteria identified Cx Nom (U) <9,000 colonies/ml mixed bacterial skin contaminants 2 Days PERFORMED BY: [facility] [address] [place] [address] PATHOLOGIST WINDSHIELD REPAIR TECHNICIAN ELICEO SPENCER M.D. Normal [facility] Comment on above: Performed By: #### C UU #### [facility] [address] HCG ( test) Ql (U)o n 07-18-2024 Interpretation and review of laboratory results Abnormal [facility] re Preg Test, Ur Positive Negative [facility] care [facility] Urinalysis macro (dipstick) panel (U)on 07-18-2024 Bilirubin, UA Negative Negative - 4(70) +++ mg/dL [facility] Blood, UA Negative Negative - 50 Sam/mcL [facility] Clarity, UA Clear [facility] re Color, UA Yellow [facility] e Glucose, UA Negative Negative - 1999(110) ++++ mg/dL [facility] Interpretation and review of laboratory results Normal [facility] re Ketones, UA Negative Negative - 160(16) ++++ mg/dL [facility] Leukocytes, UA Negative Negative - 500+++ Supa/mcL [facility] Nitrite, UA Negative Negative - Positive [facility] pH, UA 6.5 5 - 9 [facility] Protein, UA Negative Negative - 1999(20) ++++ mg/dL [facility] Spec Grav, UA 1.02 1 - 1.03 [facility] Urobilinogen, UA 0.2 0.2 - 12 mg/dL [facility] TBH PREG QUANT HCGon 024 HCG QUANTITATIVE 203 mIU/mL [facility] Hea lthcare Comment on above: 5-50 0.2-1 WEEK 50-500 1-2 WEEKS 100-5,000 2-3 WEEKS 500-10,000 3-4 WEEKS 1,000-50,000 4-5 WEEKS 10,000-100,000 5-6 WEEKS 15,000-200,000 6-8 WEEKS 10,000-100,000 2-3 MONTHS [facility] Quick Strepon 09-17-2023 S. pyogenes Org specific cx Ql (Throat) positve VSporto Other Quick Strep VSporto Other Test, Urineon 08-11 Beta HCG ( test) Ql (U) Negative VSport[facility] Other Capillary Glucose POCon Glucose [Mass/Vol] 94 mg/dL Normal 55-99 [facility] Comment on above: Result Comment: Loretta mcneal RN/ Performed By: #### 2 [id number] #### [facility] [address] [place] [address] Consent for Treatmenton Consent for Treatment [id number] 0TIFF Normal [facility] Discharge Instructionson Discharge Instructions [id number] 0TIFF Normal [facility] ED Clinical Summaryon 2022 ED Clinical Summary [address] [address] ED Clinical Summary Person Information Name: [facility] Age: 17 Years : 2005 Sex: Female Language: Upper Sorbian PCP: Hazel Grady MD Marital Status: Single [...] 07/14/2023 03:42:20 07/14/2023 03:42:20 07/14/2023 03:42:20 ADDRESS: [address] [place] [address] DR GERMAN Morena [facility] [id number] PHYS DOC NOTES: MEDICAL INFORMATION: Prescriptions Given: New Medications [id number], [address], [place] [id number], [phone] azithromycin (azithromycin 250 mg Tab) 1 Tablets By Mouth every day for 4 Days. Refills: 0. PATIENT EDUCATION INFORMATION: Instructions: Viral Illness, Adult; Otitis Media, Adult Follow up: With: Address: When: Hazel [address] [place], [place] [id number] Business (2) In 7 days 07/21/2023 DIAGNOSIS: AOM (acute otitis media); Viral illness Normal [facility] ED Note-Physicianon 07-14-20 ED Note-Physician Basic [...] and Complexity of Problems Differential Diagnosis: [] [facility] Data External documents reviewed: N/A [...] day(s), # 4 tab(s), Refills(s) 0, Pharmacy: [id number], 175, cm, 07/13/23 23:42:00 EST, Height/Length Dosing, 121.7, kg, 07/13/23 23:42:00 EST, Weight Dosing Capillary Glucose POC Influenza A&B Ag Rapid COVID Antigen ([facility]) Resp.syn.virus (Rsv) XR Chest Single View Disposition Plan Discharge Prescription List Prescriptions azithromycin 250 mg Tab, 250 mg= 1 tab(s), Oral, Daily Follow-up With When Contact Information Hazel Grady In 7 days 07/21/2023 EST [address] [place] [address] [facility] (2) Additional Instructions: Patient Education Viral [...] 94 mg/dL (07/14/23 02:00:00) POC Device SN: [id number] (07/14/23 02:00:00) POC User ID: [id number] (07/14/23 02:00:00) POC Username: POC Username (07/14/23 [...] By: Dom Sarmiento DO 07/14/2023 01:56:22 Normal [facility] Comment on above: Result Comment: Elec [...] Follow these instructions at home: ? Take isdr-nrb-kytckoa and prescription medicines only as told by [...] provider. Document Revised: 11/03/2021 Document Reviewed: 11/03/2021 [employer] Patient Education ? 2022 [employer] Infectious Disease Viral Illness, Adult Viruses [...] cause illne (more content not included)... Normal [facility] ED Patient Summaryon 023 ED Patient Summary [address] [address] Patient Discharge Instructions Person Information Name: FRANCES DOE Age: 17 Years Arrival Date: 07/13/2023 23:32:13 Discharge Diagnosis: AOM (acute otitis media); Viral illness Primary Care Physician: Hazel Grady MD Provider Information Primary Provider: Dom Sarmiento DO [employer] Supervisor:None The exam and treatment you received in the Emergency Department were for an urgent problem and are not intended as complete care. It is important that you follow up with a doctor, nurse practitioner, or physician?s clerical dentist assistant for ongoing care. If your symptoms [...] Follow-up Instructions: With: Address: When: Hazel [place] [address] [facility] (2) In 7 days 07/21/2023 In the event that this physician does not participate in your insurance network, please consult with your insurance company to find a nearby participating provider. Patient Education Materials: Viral Illness, Adult; Otitis Media, Adult A MESSAGE TO ALL PATIENTS REGARDING OPIOIDS PRESCRIPTION OPIOIDS: WHAT YOU NEED TO KNOW Prescription opioids can be used to help relieve flrlopth-wf-bunlkw pain and are often prescribed following a [...] be struggling with addiction, tell your health youth care professional and ask for guidance or call [facility]S National Helpline at 7-863-570-TNCL. (more content not included)... Normal [facility] Influenza A&B Agon 3 Influenzae A Ag Negative Normal Negative [facility] Comment on above: Performed By: #### 2 [id number] #### [facility] [address] [place] [address] Influenzae B Ag Negative Normal Negative [facility] Comment on above: Result Comment: Test sensitivity and specificity vary for age group, specimen type, antigen types, and prevalence of disease. Test results must be evaluated in conjunction with other clinical data available to the physician. Individuals who received nasally administered Influenza A vaccine may have positive test results up to 3 days after vaccination. Performed By: #### 2 [id number] #### [facility] [address] [place] [address] Prescriptions/Work Noteson 1 09-14-2022 Prescriptions/Work Notes [id number] Normal [facility] Rapid COVID Antigen ([facility])on 07-14-2023 Rapid COV Int NEG Ctl Pass Normal [facility] Comment on above: Performed By: #### 2 [id number] #### [facility] [address] [place] [address] Rapid COV Int POS Ctl Pass Normal [facility] Comment on above: Performed By: #### 2 [id number] #### [facility] [address] [place] [address] SARS-CoV+SARS-CoV-2 (COVID-19) Ag IA.rapid Ql (Resp) Not detected Normal Not Detected [facility] Comment on above: Result Comment: The [employer]ft System for Rapid Detection of SARS-CoV-2 is [...] other viruses or pathogens; and, in the [facility], this test is only authorized for the duration of the declaration that circumstances exist justifying the authorization of emergency use of in vitro diagnostics for detection and/or diagnosis of the virus that causes COVID-19 under Section 564(b)(1) of the Act, 21 U.S.C. ? 360bbb-3(b)(1), unless the authorization is terminated or revoked sooner. Performed By: #### 2 [id number] #### [facility] [address] [place] [address] Resp.syn.virus (Rsv)on 07-14 RSV Ag IA.rapid Ql (Nph) Negative Normal Negative [facility] Comment on above: Performed By: #### 2 [id number] #### [facility] [address] [place] [address] XR Chest Single Viewon 07-14 XR Chest [...] mGy = na DAP = na Normal [facility] 12-24-2022 Forms [id number]:[id number] Normal [facility] Vital Signs Date Time Vital Sign Value Performing Clinician Facility 01-11-2025 13:41-0400 Body weight 143.34 kg Maryanne FOWLER Work Phone: [facility] 01-11-2025 13:41-0400 Diastolic blood pressure 76 mm[Hg] Maryanne FOWLER Work Phone: [facility] 01-11-2025 13:41-0400 Systolic blood pressure 122 mm[Hg] Maryanne FOWLER Work Phone: [facility] 12-28-2024 10:20-0400 Body weight 139.82 kg [employer] DO Work Phone: [facility] 12-28-2024 10:20-0400 Diastolic blood pressure 82 mm[Hg] Yogesh Ally DO Work Phone: [facility] 12-28-2024 10:20-0400 Systolic blood pressure 126 mm[Hg] Yogesh Ally DO Work Phone: [facility] 12-06-2024 13:53-0400 Body weight 139.71 kg Lynette Ozunaly AEROSPACE PHYSIOLOGICAL TECHNICIAN Work Phone: [facility] 12-06-2024 13:53-0400 Diastolic blood pressure 70 mm[Hg] Lynette Mariscalerly AEROSPACE PHYSIOLOGICAL TECHNICIAN Work Phone: [facility] 12-06-2024 13:53-0400 Systolic blood pressure 114 mm[Hg] Lynette Mariscalerly AEROSPACE PHYSIOLOGICAL TECHNICIAN Work Phone: [facility] 11-15-2024 10:36-0400 Body weight 139.16 kg Yogesh Ally DO Work Phone: [facility] 11-15-2024 10:36-0400 Diastolic blood pressure 78 mm[Hg] Yogesh Ally DO Work Phone: [facility] 11-15-2024 10:36-0400 Systolic blood pressure 130 mm[Hg] Yogesh Ally DO Work Phone: [facility] 10-18-2024 14:37-0400 Body weight 136.99 kg Maryanne Covarrubias PA Work Phone: [facility] 10-18-2024 14:37-0400 Diastolic blood pressure 78 mm[Hg] Maryanne Covarrubias PA Work Phone: [facility] 10-18-2024 14:37-0400 Systolic blood pressure 130 mm[Hg] Maryanne Miesha PA Work Phone: [facility] 09-21-2024 16:43-0500 Body weight 136.9 kg Maryanne Covarrubias PA Work Phone: [facility] 09-21-2024 16:43-0500 Diastolic blood pressure 76 mm[Hg] Maryanne Covarrubias PA Work Phone: [facility] 09-21-2024 16:43-0500 Systolic blood pressure 118 mm[Hg] Maryanne Covarrubias PA Work Phone: [facility] 08-17-2024 11:52-0500 Body weight 138.8 kg Yogesh Ally DO Work Phone: [facility] 08-17-2024 11:52-0500 Diastolic blood pressure 78 mm[Hg] Yogesh Ally DO Work Phone: [facility] 08-17-2024 11:52-0500 Systolic blood pressure 122 mm[Hg] Yogesh Ally DO Work Phone: [facility] 07-18-2024 11:15-0500 Body weight 139.71 kg [facility] Nurse [facility] 07-18-2024 11:15-0500 Diastolic blood pressure 74 mm[Hg] [facility] Nurse [facility] 07-18-2024 11:15-0500 Systolic blood pressure 118 mm[Hg] [facility] Nurse [facility] 09-17-2023 09:35-0500 Body height 175.26 cm Tiesha Flood Other [facility] Other 09-17-2023 09:35-0500 Body mass index (BMI) [Ratio] 40.16 kg/m2 Tiesha Flood Other [facility] Other 09-17-2023 09:35-0500 Body temperature 99.2 [degF] Tiesha Flood Other [facility] Other 09-17-2023 09:35-0500 Body weight 123.38 kg Tiseha Flood Other [facility] Other 09-17-2023 09:35-0500 Respiratory rate 18 /min Tiesha Flood Other [facility] Other 09-17-2023 09:35-0500 SaO2% (BldA) [Mass fraction] 97 % Tiesha Flood Other [facility] Other 09-02-2023 09:30-0500 Body height 175.26 cm Sheree Cheung Other [facility] Other 09-02-2023 09:30-0500 Body mass index (BMI) [Ratio] 40.21 kg/m2 Sheree Jonatan Other [facility] Other 09-02-2023 09:30-0500 Body weight 123.52 kg Sheree Jonatan Other [facility] Other 09-02-2023 09:30-0500 Diastolic blood pressure 78 mm[Hg] Sheree Cheung Other [facility] Other 09-02-2023 09:30-0500 Respiratory rate 18 /min Sheree Cheung Other [facility] Other 09-02-2023 09:30-0500 SaO2% (BldA) [Mass fraction] 97 % Sheree Jonatan Other [facility] Other 09-02-2023 09:30-0500 Systolic blood pressure 120 mm[Hg] Sheree Cheung Other [facility] Other 07-27-2023 09:30-0500 Body height 175.26 cm Sheree Cheung Other [facility] Other 07-27-2023 09:30-0500 Body mass index (BMI) [Ratio] 40.02 kg/m2 Sheree Cheung Other [facility] Other 07-27-2023 09:30-0500 Body weight 122.93 kg Sheree Cheung Other [facility] Other 07-27-2023 09:30-0500 Diastolic blood pressure 76 mm[Hg] Sheree Jonatan Other [facility] Other 07-27-2023 09:30-0500 Respiratory rate 16 /min Sheree Jonatan Other [facility] Other 07-27-2023 09:30-0500 SaO2% (BldA) [Mass fraction] 98 % Sheree Jonatan Other [facility] Other 07-27-2023 09:30-0500 Systolic blood pressure 120 mm[Hg] Sheree Jonatan Other [facility] Other 01-21-2022 15:35-0400 Body height 175.26 cm Almaz Huerta Other [facility] Other 01-21-2022 15:35-0400 Body mass index (BMI) [Ratio] 30.86 kg/m2 Almaz Benavidezmond Other [facility] Other 01-21-2022 15:35-0400 Body temperature 97.3 [degF] Almaz Benavidezmond Other [facility] Other 01-21-2022 15:35-0400 Body weight 94.8 kg Almaz Benavidezmond Other [facility] Other 01-21-2022 15:35-0400 Diastolic blood pressure 73 mm[Hg] Almaz Benavidezmond Other [facility] Other 01-21-2022 15:35-0400 Respiratory rate 16 /min Almaz Benavidezmond Other [facility] Other 01-21-2022 15:35-0400 SaO2% (BldA) [Mass fraction] 97 % Almaz Huerta Other [facility] Other 01-21-2022 15:35-0400 Systolic blood pressure 133 mm[Hg] Almaz Huerta Other [facility] Other Encounters Encounter Date Encounter Type Care [...] 12-06-2024 End: 12-06-2024 Bamboo flowsheet Lynette Lyric AEROSPACE PHYSIOLOGICAL TECHNICIAN Work Phone: [facility] Start: 12-06-2024 End: 12-06-2024 Bamboo flowsheet Lynette Lyric AEROSPACE PHYSIOLOGICAL TECHNICIAN Work Phone: [facility] Start: 12-06-2024 End: 12-06-2024 flow sheet Lynette Lyric AEROSPACE PHYSIOLOGICAL TECHNICIAN Work Phone: [facility] Comment on [...] Start: 08-05-2024 End: 08-05-2024 ambulatory Sheree Cheung Facility:[facility] Start: 07-18-2024 End: 07-18-2024 ambulatory [facility] Ally Nurse [facility] Comment on above: GA: 7w3d Start: 06-26-2024 End: 06-26-2024 Clinisync Result Encounter Maryanne FOWLER Work Phone: [facility] Unsolicited Start: 06-26-2024 End: 06-26-2024 Clinisync Result Encounter Maryanne FOWLER Work Phone: [facility] Unsolicited Start: 09-17-2023 End: 09-17-2023 ambulatory Tiesha Flood Other [facility] Other Start: 09-17-2023 Office outpatient vi sit 15 minutes Tiesha Flood [facility] [place] Start: 09-02-2023 End: 09-02-2023 ambulatory Sheree Cheung Other [facility] Other Start: 09-02-2023 Office outpatient vi sit 25 minutes Sheree Cheung [facility] [place] Start: 07-27-2023 End: 07-27-2023 ambulatory Sheree Jonatan Other [facility] Other Start: 07-27-2023 Encounter for genera l adult medical examination without abnormal findings Sheree Cheung [facility] [place] Start: 07-27-2023 Initial preventive medicine new pt age 18-39yrs Sheree Cheung [facility] [place] Start: 07-14-2023 End: 07-14-2023 Emergency department patient visit Dom Sarmiento Facility:[facility] Start: 12-24-2022 ambulatory Dom Sarmiento Facility: [facility] Start: 04-06-2022 End: 04-06-2022 ambulatory [facility] [place] Facility: Start: 01-21-2022 (URG) Urgent Care Visit Almaz romero [facility] [place] Start: 01-21-2022 End: 01-21-2022 ambulatory Almaz Huerta Other [facility] Other Procedures Date Procedure Procedure Detail Performing [...] Work Phone: Start: 12-15-2024 [facility] UA (CLEAN/CATCH) 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 Yogesh Ally DO Work Phone: Start: 12-06-2024 Urnls dip stick/tabl et rgnt non-auto w/o micrscp Lynette Gunter AEROSPACE PHYSIOLOGICAL TECHNICIAN Work Phone: Start: 11-30-2024 ALL CBC WITH [...] AM EDT Routine [facility] [address] [place] [id number] Yogesh Canales, [address] [place] [address] [facility] Start: 01-11-2025 End: 01-11-2026 Bile acids, total Bile acids, total Lab Routine Pruritus Expected: 01/11/2025 (Approximate), Expires: 01/11/2026 [facility] Comment on above: Expected: 01/11/2025 (Approximate), Expires: 01/11/2026 Start: 01-11-2025 End: 01-11-2026 CBC W Auto Differential panel - Blood CBC and differential Lab Routine Pruritus Expected: 01/11/2025 (Approximate), Expires: 01/11/2026 [facility] Comment on above: Expected: 01/11/2025 (Approximate), Expires: 01/11/2026 Start: 01-11-2025 End: 01-11-2026 Hepatic function 2000 panel - Serum or Plasma Hepatic function panel Lab Routine Pruritus Expected: 01/11/2025 (Approximate), Expires: 01/11/2026 [facility] Comment on above: Expected: 01/11/2025 (Approximate), Expires: 01/11/2026 Start: 01-11-2025 End: 01-11-2026 Hepatitis C virus Ab [Presence] in Serum or Plasma by Immunoassay Hepatitis C antibody Lab Routine Pruritus Expected: 01/11/2025 (Approximate), Expires: 01/11/2026 [facility] Work Phone: Comment on above: Expected: 01/11/2025 (Approximate), Expires: 01/11/2026 Start: 01-11-2025 End: 01-11-2026 Thyrotropin [Units/volume] in Serum or Plasma TSH Lab Routine Pruritus Expected: 01/11/2025 (Approximate), Expires: 01/11/2026 [facility] Comment on above: Expected: 01/11/2025 (Approximate), [...] AM EDT Routine [facility] [address] [address] Yogesh Canales DO [address] [place], [place] [id number] [facility] Start: 12-28-2024 End: 12-28-2024 Professional / ancillary services management 12/28/2024 9:00 AM EDT Ancillary Procedure [facility] [address] [phone] [facility] Start: 12-06-2024 End: 04-07-2025 [...] PM EDT Routine [facility] [address] [place] [phone] Yogesh Canales DO [address] [place] [address] [facility] Start: 10-18-2024 End: 10-18-2024 Patient encounter procedure 10/18/2024 2:30 PM EDT Routine [facility] [address] [place] [phone] Maryanne Covarrubias, PA [address] [place] [address] [facility] Start: 10-18-2024 End: 10-18-2024 Professional / ancillary services management 10/18/2024 1:00 PM EDT Ancillary Procedure [facility] [address] [place] [address] [facility] Start: 09-21-2024 End: 09-21-2024 Patient encounter procedure 09/21/2024 3:20 PM EST Routine [facility] [address] [place] [phone] Maryanne Covarrubias, PA [address] [place] [address] Arrived [facility] Comment on above: Arrived Start: 09-21-2024 End: 11-19-2024 Alpha fetoprotein, maternal Alpha fetoprotein, maternal Lab Routine Screening, , for anatomic survey Expected: 09/21/2024 (Approximate), Expires: 11/19/2024 [facility] Comment on above: Expected: 09/21/2024 (Approximate), Expires: 11/19/2024 Start: 09-21-2024 End: 09-21-2025 Measurement of glucose 1 hour after glucose challenge for glucose tolerance test Glucose tolerance, 1 hour Lab Routine Diabetes mellitus screening Expected: 09/21/2024 (Approximate), Expires: 09/21/2025 [facility] Comment on above: Expected: 09/21/2024 (Approximate), Expires: 09/21/2025 Start: 09-21-2024 End: 09-21-2025 US for US OB 14+ weeks anatomy scan Imaging Routine Screening, , for anatomic survey Expected: 09/21/2024, Expires: 09/21/2025 [facility] Comment on above: Expected: 09/21/2024 , Expires: 09/21/2025 Start: 09-21-2024 End: 09-21-2024 Patient encounter procedure 09/21/2024 9:30 AM EST Routine [facility] [address] [place] [address] Maryanne Covarrubias PA [address] [place] [address] [facility] Start: 08-17-2024 End: 08-17-2024 Patient encounter procedure [facility] Comment on above: Arrived Start: 07-18-2024 End: 07-18-2025 ABO/Rh ABO/Rh Lab Routine Missed menses , unspecified gestational age Expected: 07/18/2024 (Approximate), Expires: 07/18/2025 [facility] Comment on above: Expected: 07/18/2024 (Approximate), Expires: 07/18/2025 Start: 07-18-2024 End: 07-18-2025 Blood type and Indirect antibody screen panel - Blood Type and screen Lab Routine Missed menses , unspecified gestational age Expected: 07/18/2024 (Approximate), Expires: 07/18/2025 [facility] Work Phone: Comment on above: Expected: 07/18/2024 (Approximate), Expires: 07/18/2025 Start: 07-18-2024 End: 07-18-2025 Drugs of abuse panel - Urine by Screen method Rapid drug screen, urine Lab Routine , unspecified gestational age Encounter for supervision of normal first in first trimester Expected: 07/18/2024 (Approximate), Expires: 07/18/2025 [facility] Comment on above: Expected: 07/18/2024 (Approximate), Expires: 07/18/2025 Start: 07-18-2024 End: 07-18-2025 US Pelvis transvaginal US OB transvaginal Imaging Routine Missed menses Expected: 07/18/2024 (Approximate), Expires: 07/18/2025 [facility] Comment on above: Expected: 07/18/2024 (Approximate), Expires: 07/18/2025 Start: 07-18-2024 End: 07-18-2024 ambulatory 07/18/2024 10:30 AM EST Initial [facility] [address] [address] [facility] Start: 07-18-2024 End: 07-18-2024 Professional / ancillary services management 07/18/2024 10:00 AM EST Ancillary Procedure [facility] [address] [address] [facility] Bacteria identified in Urine by Culture Urine culture Microbiology Routine Missed menses Ordered: 07/18/2024 [facility] Comment on above: Ordered: 07/18/2024 CBC W Auto Differential panel - Blood CBC and differential Lab Routine Missed menses , unspecified gestational age Ordered: 07/18/2024 [facility] Comment on above: Ordered: 07/18/2024 CHLAMYDIA TRACHOMATI S (GENITO/STI) CHLAMYDIA TRACHOMATIS (GENITO/STI) Lab Routine STD exposure Vaginal discharge Ordered: 09/21/2024 [facility] Comment on above: Ordered: 09/21/2024 Hemoglobin A1c/Hemoglobin.total in Blood Hemoglobin A1c Lab Routine Missed menses , unspecified gestational age Ordered: 07/18/2024 [facility] Comment on above: Ordered: 07/18/2024 Hepatitis B virus surface Ag [Presence] in Serum or Plasma by Immunoassay Hepatitis B surface antigen Lab Routine Missed menses , unspecified gestational age Ordered: 07/18/2024 [facility] Comment on above: Ordered: 07/18/2024 Hepatitis C virus Ab [Presence] in Serum or Plasma by Immunoassay Hepatitis C antibody Lab Routine Missed menses , unspecified gestational age Ordered: 07/18/2024 [facility] Comment on above: Ordered: 07/18/2024 HIV-1/HIV-2 antigen/antibody combination immunoassay HIV-1 and HIV-2 antibodies Lab Routine Missed menses , unspecified gestational age Ordered: 07/18/2024 [facility] Comment on above: Ordered: 07/18/2024 Neisseria gonorrhoea e DNA [Presence] in Unspecified specimen by ISAURO with probe detection Neisseria gonorrhea DNA probe, direct Lab Routine STD exposure Vaginal discharge Ordered: 09/21/2024 [facility] Comment on above: Ordered: 09/21/2024 Reagin Ab [Presence] in Serum by RPR RPR Lab Routine Missed menses , unspecified gestational age Ordered: 07/18/2024 [facility] Comment on above: Ordered: 07/18/2024 Rubella antibody, IgG Rubella an tibody, IgG Lab Routine Missed menses , unspecified gestational age Ordered: 07/18/2024 [facility] Comment on above: Ordered: 07/18/2024 SURESWAB(R) ADVANCED VAGINITIS PLUS, TMA SURESWAB(R) ADVANCED VAGINITIS PLUS, TMA Pathology and Cytology Routine STD exposure Vaginal discharge Ordered: 09/21/2024 [facility] Work Phone: Comment on above: Ordered: 09/21/2024 Immunizations Immunization Date Immunization Notes Care Provider Chase sequeira 03-17-2021 Human Papillomavirus 9-valent vaccine Almaz Deanna Other [facility] Other 02-10-2021 Do not use COVID-19 Pfizer 2 dose Almaz Deanna Other [facility] Other 08-04-2016 Human Papillomavirus 9-valent vaccine Almaz Deanna Other [facility] Other 05-22-2016 Human Papillomavirus 9-valent vaccine Almaz Deanna Other [facility] Other 07-29-2015 hepatitis A vaccine, pediatric/adolescent dosage, 2 dose schedule Almaz Deanna Other [facility] Other 04-02-2007 hepatitis A vaccine, pediatric/adolescent dosage, 2 dose schedule Almaz Deanna Other [facility] Other 04-14-2005 diphtheria, tetanus toxoids and acellular pertussis vaccine, 5 pertussis antigens Almaz Deanna Other [facility] Other 10-09-2004 measles, mumps and rubella virus vaccine Almaz Deanna Other [facility] Other 04-21-2004 DTaP-hepatitis B and poliovirus vaccine Almaz Deanna Other [facility] Other 04-21-2004 haemophilus influenz ae type b vaccine, PRP-T conjugate Almaz Deanna Other [facility] Other 02-19-2004 DTaP-hepatitis B and poliovirus vaccine Almaz Deanna Other [facility] Other 02-19-2004 haemophilus influenz ae type b vaccine, PRP-T conjugate Almaz Deanna Other [facility] Other 2003 DTaP-hepatitis B and poliovirus vaccine Almaz Deanna Other [facility] Other 2003 haemophilus influenz ae type b vaccine, PRP-T conjugate Almaz Deanna Other [facility] Other 2003 hepatitis B vaccine, pediatric or pediatric/adolescent dosage Almaz Huerta Other [facility] Other Payers Date Payer Category Payer Self-pay 2021 Private Health Insurance 2003 Unknown [id number] 2.16.8 [id number] 2003 Unknown [id number] 2.16.8 [id number] 2003 Unknown [id number] 2.16.84 [id number] 2003 Unknown [id number] 2.16.84 [id number] 2003 Unknown [id number] 2.16.84 0.1.363571.3.579.2.1259 2003 Unknown [id number] 2.16.84 0.1.405942.3.579.2.1259 2003 Unknown [id number] 2.16.84 0.1.134325.3.579.2.9 2003 Unknown [id number] 2.16.84 0.1.192102.3.579.2.1259 2003 Unknown [id number] 2.16.84 0.1.285046.3.579.2.1259 2003 Unknown [id number] 2.16.84 0.1.296200.3.579.2.1259 2003 Unknown [id number] 2.16.84 0.1.911946.3.579.2.1259 2003 Unknown [id number] 2.16.84 0.1.328540.3.579.2.1259 1959 Unknown [id number] 1959 Unknown [id number] 1959 Unknown [id number] 2.16.84 [id number] Unknown [id number] 2.16.8 [id number] Social History Date Type Detail Facility Unknown if ever smoked [facility] Other Sex Assigned At [facility] Other Tobacco smoking status IAIS Tobacco smoking consumption unknown [facility] Start: 2003 Sex assigned at Not on file [facility] Start: 06-10-2024 [facility] Clinical Notes 01-21-2022 to 01-11-2025 Maryanne Covarrubias, JANETH - 01/11/2025 1:30 PM EDDevendra Rodríguez, DISPLAY ARTIST - 12/28/2024 9:50 AM EDTLynette Gunter NP - 12/06/2024 1:20 PM EDTAparna Vasquez, DISPLAY ARTIST - 11/15/2024 10:50 AM EDT Note Date [...] of: JANETH Ji documented in this encounter [facility] 12-28-2024 History of Presen t illness Narrative [...] nursing note reviewed. Exam conducted with a clay structure builder and servicer present. Vitals: There is no height or [...] Yogesh Canales DO documented in this encounter [facility] 12-06-2024 History of Presen t illness [...] nursing note reviewed. Exam conducted with a clay structure builder and servicer present. Vitals: There is no height or [...] Lynette Gunter NP documented in this encounter [facility] 11-15-2024 History of Presen [...] nursing note reviewed. Exam conducted with a clay structure builder and servicer present. Vitals: There is no height or [...] Yogesh Canales DO documented in this encounter [facility] 10-18-2024 History of Presen [...] of: JANETH Ji documented in this encounter [facility] 09-21-2024 History of Presen [...] obtained without difficulty and patient was given [facility] order to have obtained. Orders [...] of: JANETH Ji documented in this encounter [facility] 08-17-2024 History of Presen [...] nursing note reviewed. Exam conducted with a clay structure builder and servicer present. Vitals: There is no height or [...] meat, and stay away from [facility]. Patient has been consulted regarding any [...] Yogesh Canales DO documented in this encounter [facility] 07-18-2024 History of Presen [...] meat, and stay away from [facility]. Patient has also been advised to [...] Jazmyne Oliveira MA documented in this encounter [facility] 09-17-2023 Evaluation note Encounter [...] understanding and is agreeable to treatment plan. [facility] 01-25-2024 Evaluation note* Encounter Date Diagnosis [...] and no personal patient information was compromised. [facility] 12-19-2023 Evaluation note* Encounter Date Diagnosis [...] (ICD-10 - F32.1) See above treatment plan. [facility] 06-15-2022 Evaluation note* Encounter Date Diagnosis Assessment Notes Treatment Notes Treatment Clinical Notes Jan, Pre-employment examination (ICD-10 - Z02.1) [facility] Other Evaluation note* Diagnosis Missed menses , [...] Reported* Type Description Date Medical History vertigo [facility] Other Reason for referral (narrative)* Reason Refer to [facility] or counseling for anxiety and depression Diagnosis 1 MATTHIAS (generalized anx iety disorder) (F41.1) Referral Organization [facility] Referring Provider First Name Sheree Referring Provider Last Name Jonatan Referring Provider Specialty Nurse Praclaura grullon Referred Provider Specialty Psychiatry Referral Priority Routine [facility] Other Summary Purpose Family History No Family [...] DATE CREATED AUTHOR AUTHOR'S ORGANIZ ATION 08/13/2023 [facility] DATE CREATED AUTHOR AUTHOR'S ORGANIZ ATION 08/09/2024 [facility] DATE CREATED AUTHOR AUTHOR'S ORGANIZ ATION 01/12/2025 [facility] EPIC Care Teams (unrecognized sec tion and content) Invoice Machine Operator Relationship Specialty Start Date End Date Hazel Grady MD [address] [place] [address] PCP - General Family Medicine 07/18/24 Invoice Machine Operator Relationship Specialty Start Date End Date Hazel Grady MD [address] [place] [address] PCP - General Family Medicine 07/18/24 Invoice Machine Operator Relationship Specialty Start Date End Date Hazel Grady MD [address] [place] [address] PCP - General Family Medicine 07/18/24 Invoice Machine Operator Relationship Specialty Start Date End Date Hazel Grady MD [address] [place] [address] PCP - General Family Medicine 07/18/24 Invoice Machine Operator Relationship Specialty Start Date End Date Hazel Grady MD [address] [place] [address] PCP - General Family Medicine 07/18/24 Invoice Machine Operator Relationship Specialty Start Date End Date Hazel Grady MD [address] [place] [address] PCP - General Family Medicine 07/18/24 Invoice Machine Operator Relationship Specialty Start Date End Date Hazel Grady MD [address] [place] [address] PCP - General Family Medicine 07/18/24 Invoice Machine Operator Relationship Specialty Start Date End Date Hazel Grady MD [address] [place] [address] PCP - [facility] 07/18/24 Invoice Machine Operator Relationship Specialty Start Date End Date Hazel Grady MD [address] [facility] [place] [address] PCP - [facility] 07/18/24 Invoice Machine Operator Relationship Specialty Start Date End Date Hazel Grady MD [address] [facility], [facility] PCP - [facility] 07/18/24 Invoice Machine Operator Relationship Specialty Start Date End Date Hazel Grady MD [address] [place] [id number] PCP - [facility] 07/18/24 FOR RECORDS PERTAINING TO [...] BE BASED ON THE PRIMARY CLINICAL RECORDS. [employer] [facility]. provides no warranty or guarantee of the accuracy or completeness of information in this document.
[2025-01-17 11:07] VITALS: BP 137/84; PULSE 93
== END 2025-01-17 11:28 | disposition home or self-care (01) ==
LOC: US 10:00 → FBC 10:02
PROVIDERS: PCP Family Medicine; Visit Provider Obstetrics & Gynecology
DX: O41.03X0 Oligohydramnios, third trimester, not applicable or unspecified (principal); Z3A.33 33 weeks gestation of pregnancy
CPT/HCPCS: 76818

== ENCOUNTER 2025-01-20 10:01 | Outpatient (OUT) | payer OTHER, SELFPAY ==
--- OUTSIDE RECORDS SUMMARY | 2016-05-22 10:00 | XMS_ITS | Continuity of Care Document ---
Author Organization [employer] [facility] Address [address] [facility] [place] [address] Phone Care Team Providers Care Technical Services Representative Name Role Phone Floyd WANG, Selvin Unavailable [...] Diagnoses Date Provider Providers Copied on Encounter [facility] [facility], [address] [facility] [address], [place], [place], [address], [place] tel:[phone] [facility] vaccine adm. (chief complaint) No Information 6 Floyd Montalvo. [address] [address], [place], [place], [address], [place]. tel:[phone] Referring Provider: Selvin Bell, [address] [address], [place], [address] . tel:[phone] [facility], [address] [place] [address] [address], [place], [place], [address], [place] tel:[phone] [facility] No Information [address] [facility], [address] [place] [address] [address], [place], [place], [address], [place] tel:[phone] [facility] No Information 5 Floyd Montalvo. [address] [address], [place], [place], [address], [place]. tel:[phone] PREV VISIT, NEW, AGE 5-11 [facility], [address] [place] [address] [address], [place], [place], [address], [place] tel:[phone] [facility] Well child (chief complaint) Encntr for routine child health exam w/o abnormal findings 5 Ahmet Snyder. [address], [address], [place]. tel:[phone] Referring Provider: Lillian Leo MD, [facility] [address], [address]. tel:[phone] Family History Family Member Type Diagnosis Age [...] Registry Payers Payer name Insurance type Covered republican ID Authoriza tion(s) Medicaid [place] [id number] Medicaid [place] [id number] Medicaid [place] [id number] [facility] [id number] Social History Type Description Quantity Date [...]
--- OUTSIDE RECORDS SUMMARY | 2023-08-23 10:15 | XMS_ITS ---
Author Organization [facility] [place] Address [address] [place] [address] Care Team Providers Care Music Ministries Director Name Role Phone Amanda Wilson Primary Care Provider [phone] REASON FOR VISIT NEW PT REFERRAL FROM [facility] Encounters Encounter Location Date Provider Diagnosis [facility] [place] [address] [place] [address] 08/23/2023 Amanda Wilson Plan Of Treatment No Information Progress Notes * YUMIKO DOEEDOB: [birth year] (19 yo F)Acc No.[id number]:08/23/2023 Consult - Patient Patient: JIMBO PICHARDO Provider: JOSEPH Dumont :2005 A ge:17 Y S ex:Female Date:08/23/2023 Address:[address], [place], [id number] Subjective: * Chief Complaints: * 1 . NEW PT REFERRAL FROM [facility]. Objective: Therapeutic Interventions: Assessment: Plan: * Images: Care Plan Details* * Electronic signature of JOSEPH Sheikh on 01/20/2025 at 10:03 AM EDT Sign off status: Pending * Provider: JOSEPH Dumont Date: 08/23/2023 Generated for Jessyi ng/Faxing/eTransmitting on: 0 01/20/2025 10:03 AM EDT
--- OUTSIDE RECORDS SUMMARY | 2025-01-11 13:30 | XMS_ITS | Encounter Summary ---
Author Organization [facility] Address [address] [facility] [place] [address] Care Team Providers Care Chain Splitter Name Role Phone David Awan MD Primary Care Provider [phone] Reason for Visit * Reason Comments Routine Visit Encounter Details Date Type Department Care Team (Late st Contact Info) Description 01/11/2025 1:30 PM EDT Routine [facility] B[facility] OB [address] [place] [address] Maryanne Whiteside PA [address] [facility] [address] [place], [place] [address] Third trimester ([facility] 32 weeks gestation of [facility] Pruritus Social History Tobacco Use Types [...] AM EDT Routine [facility] BCP OB [address] [place] [address] Cb Canales, [address] [facility] [place] [address] Scheduled Orders Name Type Priority Associated Diagnoses [...] disorder documented in this encounter Care Teams Chain Splitter Relationship Specialty Start Date End Date David Awan MD [address] [place] [address] PCP - General Family Medicine 07/18/24 documented as of this encounter
--- OUTSIDE RECORDS SUMMARY | 2025-01-20 10:03 | XMS_ITS | Clinical Summary ---
Author Organization [facility] [employer] [employer] [facility] tem Address [id number] [address] [place] [address] Care Team Providers Care Linux Security Administrator Name Role Phone Unavailable Primary Care Provider [...] Description 01/04/2025 Orders Only Maternal- Medicine at [facility] [address] [place] [phone] Ref Prov, Not In System 01/04/2025 Abstract Maternal- Medicine at [facility] [address] [place] [address] Mike Lay MD from Last 3 Months [...] Orientation Not on file Plan of Treatment Health Maintenance Due Date Last Done Comments Depression Screening 2015 Tobacco Screening 2015 Adult BMI Screening 2021 Pap Smear 2024 Influenza Vaccine 04/09/2025 09/11/2019, 07/14/2011 DTaP,Tdap and Td Vaccines (6 - Td or Tdap) 07/29/2025 07/29/2015, 04/14/2005, 04/21/2004, Additional history exists Medical Devices Not on file Procedures Procedure Name Priority Date/Time Associated Diagnosis Comments US MFM COMPREHENSIVE ANATOMIC SURVEY Routine 01/18/2025 9:32 AM EDT Screening, , for anatomic survey US PREG LMTD 1 OR MORE FETUS [...] 11/30/2024 from Last 3 Months Results * US MFM COMPREHENSIVE ANATOMIC SURVEY (01/18/2025 9:32 AM EDT) Anatomical Region Laterality Modality OB-MICA PLATE LAYER Ultrasound 01/18/2025 8:21 AM EDT Narrative 01/18/2025 10:30 AM EDT NAME: BROOK CHOI : 2005 SEX: F Accession Number: [id number] ORDERING PHYSICIAN: CB CANALES REFERRING PHYSICIAN: CB CANALES Coding ----- --------- Procedures [id number]: Ultrasound, uterus, real time with image documentation, and maternal evaluation plus detailed anatomic examination, transabdominal approach;single or first gestation Indication ----- --------- Screening for Anatomic Survey, Obesity in , low JEROD in office History ----- --------- OB History 1 Maternal Assessment ----- --------- Physical Exam Height 175 cm, 5 ft 9 in. Weight 143 kg, 316 lb. Initial weight 140 kg, 308 lb. BMI 46.67 kg/m . Initial BMI 45.48 kg/m . Weight gain 4 kg, 8 lb Method ----- --------- Transabdominal ultrasound examination. View: Suboptimal view: limited by maternal body habitus and late gestational age ----- --------- Ramirez . Number of fetuses: 1 Dating ----- --------- Previous Ultrasound on: 07/18/2024 Type of prior assessment: GA GA at prior assessment date 7 w + 3 d GA by previous U/S 33 w + 5 d MONIQUE by previous Ultrasound: 03/03/2025 Ultrasound examination on: 01/18/2025 GA by U/S based upon: AC, BPD, Femur, HC GA by U/S 33 w + 6 d MONIQUE by U/S: 03/02/2025 Assigned: based on ultrasound (GA), selected on 01/18/2025 Assigned GA 33 w + 5 d Assigned MONIQUE: 03/03/2025 General Evaluation ----- --------- Cardiac activity Present. FHR 145 bpm. Presentation: cephalic Placenta: Placental site: anterior, away from cervical os Umbilical cord: Cord vessels: 3 vessel cord. Insertion site: not examined Amniotic fluid: Amount of AF: normal amount. MVP 4.5 cm. JREOD 8.4 cm. Q1 2.1 cm, Q2 4.5 cm, Q3 1.8 cm, Q4 0.0 cm Biometry ----- --------- Standard BPD 87.5 mm 35w 2d 87% Hadlock OFD 100.6 mm 32w 4d 25% Tj HC 299.4 mm 33w 1d 8% Hadlock AC 291.8 mm 33w 1d 37% Hadlock Femur 65.2 mm 33w 4d 37% Hadlock Humerus 57.6 mm 33w 3d 53% Tj HC / AC 1.03 EFW 2,210 g 36% Hadlock EFW (lb) 4 lb EFW (oz) 14 oz EFW by: Hadlock ([id number]) Extended Tibia 56.1 mm 32w 6d 45% Tj [employer] 2.0 mm Head / Face / Neck Cephalic index 0.87 96% Nicolaides Nasal bone: not examined Extremities / Bony Struc FL / BPD 0.75 FL / HC 0.22 FL / AC 0.22 Other Structures FHR 145 bpm Anatomy ----- --------- The following structures appear normal: Head/Neck: Cranium. Lateral ventricles. Cavum septi pellucidi. Parenchyma. Heart/Thorax: Situs. Cardiac position. Cardiac axis. Cardiac size. Cardiac rhythm. Abdomen: Stomach. Kidneys. Bladder. Small bowel. Large bowel. Extremities/Skeleton: Right upper arm. Right forearm. Right upper leg. Right lower leg. Skeleton The following structures could not be adequately visualized: Heart / Thorax 4-chamber view. 3-vessel view. Diaphragm. Spine: Cervical spine. Thoracic spine. Lumbar spine. Sacral spine. The following structures could not be examined: Head / Neck Choroid plexus. Midline falx. Cerebellum. Cisterna magna. Vermis. Neck. Face: Lips. Profile. Nose. Nasal bone. Maxilla. Mandible. Orbits. Heart / Thorax RVOT view. LVOT view. 3-wbumxx-xwqyjbu view. Aortic arch view. Bicaval view. Ductal arch view. Interventricular septum. Great vessels. Right lung. Left lung. Abdomen Abdom. wall. Cord insertion. Right renal artery. Left renal artery. Genitals. Extremities / Right hand. Left upper arm. Left forearm. Left hand. Right foot. Left upper leg. Left lower leg. Left foot. Maternal Structures ----- --------- Uterus Visualized Cervix Suboptimal Right Ovary Not visualized Left Ovary Not visualized Cul de Sac Suboptimal Impression ----- --------- Single viable intrauterine in cephalic presentation with normal growth, EFW measures at the 36%. AC measures at the 37%. Normal amniotic fluid assessment with DVP 4.5 cm and JEROD 8.4 cm. Recommendations ----- --------- anatomic survey is incomplete due to late gestational age and suboptimal visualization. Patient is not scheduled to return for additional ultrasound. Please reschedule for specific concerns or indications. Subsequent follow up or other follow up as clinically determined by primary OB provider unless otherwise specified by MFM. Results forwarded to ordering provider so they can follow up with the patient as necessary. Procedure Note Lori Posadas MD - 01/18/2025 NAME: BROOK CHOI : 2005 SEX: F Accession Number: [id number] ORDERING PHYSICIAN: CB CANALES REFERRING PHYSICIAN: CB CANALES Coding ----- --------- Procedures [id number]: Ultrasound, uterus, real time with imagedocumentation, and maternal evaluation plus detailed anatomic examination, transabdominalapproach;single or first gestation Indication ----- --------- Screening for Anatomic Survey, Obesity in , low JEROD in office History ----- --------- OB History 1 Maternal Assessment ----- --------- Physical Exam Height 175 cm, 5 ft 9 in. Weight 143 kg, 316 lb. Initialweight 140 kg, 308 lb. BMI 46.67 kg/m . Initial BMI 45.48 kg/m . Weight gain 4 kg, 8 lb Method ----- --------- Transabdominal ultrasound examination. View: Suboptimal view: limited bymaternal body habitus and late gestational age ----- --------- Ramirez . Number of fetuses: 1 Dating ----- --------- Previous Ultrasound on: 07/18/2024 Type of prior assessment: GA GA at prior assessment date 7 w + 3 d GA by previous U/S 33 w + 5 d MONIQUE by previous Ultrasound: 03/03/2025 Ultrasound examination on: 01/18/2025 GA by U/S based upon: AC, BPD, Femur, HC GA by U/S 33 w + 6 d MONIQUE by U/S: 03/02/2025 Assigned: based on ultrasound (GA), selected on 01/18/2025 Assigned GA 33 w + 5 d Assigned MONIQUE: 03/03/2025 General Evaluation ----- --------- Cardiac activity Present. FHR 145 bpm. Presentation: cephalic Placenta: Placental site: anterior, away from cervical os Umbilical cord: Cord vessels: 3 vessel cord. Insertion site: notexamined Amniotic fluid: Amount of AF: normal amount. MVP 4.5 cm. JEROD 8.4 cm. Q12.1 cm, Q2 4.5 cm, Q3 1.8 cm, Q4 0.0 cm Biometry ----- --------- Standard BPD 87.5 mm 35w 2d 87% Hadlock OFD 100.6 mm 32w 4d 25% Tj HC 299.4 mm 33w 1d 8% Hadlock AC 291.8 mm 33w 1d 37% Hadlock Femur 65.2 mm 33w 4d 37% Hadlock Humerus 57.6 mm 33w 3d 53% Tj HC / AC 1.03 EFW 2,210 g 36% Hadlock EFW (lb) 4 lb EFW (oz) 14 oz EFW by: Hadlock ([id number]) Extended Tibia 56.1 mm 32w 6d 45% Tj [employer] 2.0 mm Head / Face / Neck Cephalic index 0.87 96% Nicolaides Nasal bone: not examined Extremities / Bony Struc FL / BPD 0.75 FL / HC 0.22 FL / AC 0.22 Other Structures FHR 145 bpm Anatomy ----- --------- The following structures appear normal: Head/Neck: Cranium. Lateral ventricles. Cavum septi pellucidi.Parenchyma. Heart/Thorax: Situs. Cardiac position. Cardiac axis. Cardiac size. Cardiacrhythm. Abdomen: Stomach. Kidneys. Bladder. Small bowel. Large bowel. Extremities/Skeleton: Right upper arm. Right forearm. Right upper leg.Right lower leg. Skeleton The following structures could not be adequately visualized: Heart / Thorax 4-chamber view. 3-vessel view. Diaphragm. Spine: Cervical spine. Thoracic spine. Lumbar spine. Sacral spine. The following structures could not be examined: Head / Neck Choroid plexus. Midline falx. Cerebellum. Cisterna magna.Vermis. Neck. Face: Lips. Profile. Nose. Nasal bone. Maxilla. Mandible. Orbits. Heart / Thorax RVOT view. LVOT view. 3-uwtyrh-fgcyovl view. Aortic archview. Bicaval view. Ductal arch view. Interventricular septum. Great vessels. Right lung. Left lung. Abdomen Abdom. wall. Cord insertion. Right renal artery. Left renalartery. Genitals. Extremities / Right hand. Left upper arm. Left forearm. Left hand. Rightfoot. Left upper leg. Left lower leg. Left foot. Maternal Structures ----- --------- Uterus Visualized Cervix Suboptimal Right Ovary Not visualized Left Ovary Not visualized Cul de Sac Suboptimal Impression ----- --------- Single viable intrauterine in cephalic presentation with normalfetal growth, EFW measures at the 36%. AC measures at the 37%. Normal amniotic fluid assessment with DVP 4.5 cm and JEROD 8.4 cm. Recommendations ----- --------- anatomic survey is incomplete due to late gestational age andsuboptimal visualization. Patient is not scheduled to return for additional ultrasound. Pleasereschedule for specific concerns or indications. Subsequent follow up or other follow up as clinically determined byprimary OB provider unless otherwise specified by MFM. Results forwarded to ordering provider so they can follow up with thepatient as necessary. us Cb Canales DO IMG US ORDERABLES Final Result * Ultrasound limited 1 or more fetus (01/04/2025 10:58 AM EDT) Only the most recent of5 resultswithin the time period is included. Anatomical Region Laterality Modality OB-MICA PLATE LAYER Ultrasound us Not In System Ref Prov IMG US ORDERABLES Final R esult * CBC without diff (11/30/2024) Hemoglobin 11.2 MANUALLY TRANSCRIBED RESULTS Hematocrit 34.0 MANUALLY TRANSCRIBED RESULTS Rbc Mcv (Fl) By Automated Count 84.0 MANUALLY TRANSCRIBED RESULTS Blood Venous blood / Unknown us Not In System Ref Prov LAB BLOOD ORDERABLES Jessica l Result MANUALLY TRANSCRIBED RESULTS from Last 3 Months Insurance [facility]
--- OUTSIDE RECORDS SUMMARY | 2025-01-20 10:03 | XMS_ITS | Encounter Summary ---
Author Organization [facility] tem Address [id number] [address] [place] [address] Care Team Providers Care Pilot Fuel Engineer Name Role Phone Unavailable Primary Care Provider Unavailabl e Encounter Details Date Type Department Care Team (Late st Contact Info) Description 01/04/2025 Orders Only Maternal- Medicine at [facility] [address] [place] [phone] Ref Prov, [place] [address] Social History Tobacco Use Types Packs/Day Years [...] as of this encounter Plan of Treatment Not on file documented as of this encounter Procedures Procedure [...] 10:58 AM EDT) Anatomical Region Laterality Modality OB-TOP COLLAR MAKER Ultrasound us Not In System Ref Prov IMG US ORDERABLES Final R esult * Ultrasound limited 1 or more fetus (01/04/2025 10:56 AM EDT) Anatomical Region Laterality Modality OB-TOP COLLAR MAKER Ultrasound us Not In System Ref Prov IMG US ORDERABLES Final R esult * Ultrasound limited 1 or more fetus (01/04/2025 10:55 AM EDT) Anatomical Region Laterality Modality OB-TOP COLLAR MAKER Ultrasound us Not In System Ref Prov IMG US ORDERABLES Final R esult * Ultrasound limited 1 or more fetus (01/04/2025 10:54 AM EDT) Anatomical Region Laterality Modality OB-TOP COLLAR MAKER Ultrasound us Not In System Ref Prov IMG US ORDERABLES Final R esult * Ultrasound limited 1 or more fetus (01/04/2025 10:51 AM EDT) Anatomical Region Laterality Modality OB-TOP COLLAR MAKER Ultrasound us Not In System Ref Prov IMG US ORDERABLES Final R esult documented in this encounter Visit Diagnoses Not on filedocumented in this encounter
--- OUTSIDE RECORDS SUMMARY | 2025-01-20 10:03 | XMS_ITS | Patient Health Record ---
Author Organization [facility] Address [address] [address] Care Team Providers Care Instrument Person Name Role Phone Amanda Wilson Primary Care Provider Reason For Referral No Information Plan Of Treatment No Information Insurance Providers Payer Name Payer Address Payer Phone Subscriber Number Group Number Insured Name Patient Relationship to Insured Coverage Start Date Coverage End Date [facility] [address] [address] [place] [address] [id number] JIMBO DOE Self - patient is the insured 3
--- OUTSIDE RECORDS SUMMARY | 2025-01-20 10:04 | XMS_ITS | Encounter Summary ---
Author Organization [facility] Address [address] [place] [address] Care Team Providers Care Safety Admin Assistant Name Role Phone David Awan MD Primary Care Provider [phone] Encounter Details Date Type Department Care Team (Late st Contact Info) Description 01/11/2025 Clinisync Result Encounter [facility] External Department Unsolicited Maryanne Whiteside PA [address] [place], [facility] Social History Tobacco Use Types Packs/Day Years [...] Encounters Date Type Department Care Team (Late Contact Info) Description 01/25/2025 8:40 AM EDT Routine [facility] [address] [place] [phone] Cb Canales, [address] [place] [address] documented as of this encounter Procedures Procedure Name Priority Date/Time Associated Diagnosis Comments [facility] LIVER PANEL Routine 01/11/2025 2:14 PM EDT [facility] BILE ACIDS FRACT BLD Routine 01/11/2025 2:14 PM EDT ALL THYROID STIM HORMONE Routine 01/11/2025 2:14 PM EDT ALL HEPATITIS C AB Routine 01/11/2025 2: 14 PM EDT ALL CBC WITH AUTO DIFF Routine 01/11/2025 2:14 PM EDT documented in this encounter Results * [facility] BILE ACIDS FRACT BLD (01/11/2025 2:14 PM EDT) Pathologist [facility] BILE ACIDS 1.6 0.0 - 10.0 umol/L TB Comment: Performed at: [address] [id number] Internal Specialist: Mac Chawla MD, Phone: [phone] 01/11/2025 2:14 PM EDT 01/11/2025 2:18 PM EDT Narrative CLINISYNC - 01/12/2025 3:09 PM EDT Maryanne HER Final Result Performing Organization Address [facility] de Phone Number [facility] * ALL HEPATITIS C AB (01/11/2025 2:14 PM EDT) Pathologist [facility] HCV ANTIBODY Non Reactive Non Reactive [facility] Comment: HCV antibody alone does not differentiate between previously resolved infection and active infection. Equivocal and Reactive HCV antibody results should be followed up with an HCV RNA test to support the diagnosis of active HCV infection. Performed at: [facility] [address] [id number] Internal Specialist: Porter Kamara PhD, Phone: [phone] 01/11/2025 2:14 PM EDT 01/11/2025 2:18 PM EDT Narrative CLINISYNC - 01/12/2025 5:07 AM EDT Maryanne HER Final Result Performing Organization Address [facility]/ZIP Co de Phone Number CLINISYNC TB * ALL THYROID STIM HORMONE (01/11/2025 2:14 PM EDT) THYROID STIMULATING HORMONE 0.457 0.358 - 3.740 uIU/mL [facility] 01/11/2025 2:14 PM EDT 01/11/2025 2:18 PM EDT Narrative CLINISYNC - 01/11/2025 3:18 PM EDT Maryanne CALDERAISYODALIS Final Result Performing Organization Address [facility] Co de Phone Number CLINISYPA TB * (ABNORMAL) [facility] LIVER PANEL (01/11/2025 2:14 PM EDT) BILIRUBIN TOTAL 0.2 0.2 - 1.0 mg/dL [facility]H BILIRUBIN DIRECT 0.1 0.0 - 0.2 mg/dL [facility] ASPARTATE AMINO TRANSFERASE 12(L) 15 - 37 U/L [facility] ALANINE AMINOTRANSFERASE 12(L) 14 - 59 U/L [facility] ALKALINE PHOSPHATASE 134(H) 46 - 116 U/L [facility] TOTAL PROTEIN 6.3(L) 6.4 - 8.2 g/dL [facility] ALBUMIN LEVEL 2.2(L) 3.4 - 5.0 g/dL [facility] GLOBULIN 4.1 g/dL [facility] ALBUMIN GLOBULIN RATIO 0.5 [facility] 01/11/2025 2:14 PM EDT 01/11/2025 2:18 PM EDT Narrative CLINISYNC - 01/11/2025 3:18 PM EDT us Maryanne HER Final Result Performing Organization Address [facility]/ZIP Co de Phone Number CLINISYNC TB * (ABNORMAL) ALL CBC WITH AUTO DIFF (01/11/2025 2:14 PM EDT) TB WBC 9.8 4.0 - 11.0 10 3/uL TBH TBH RBC 3.79(L) 4.20 - 5.40 10 6/uL TBH TBH HGB 10.3(L) 12.0 - 16.0 g/dL TBH TBH HCT 31.2(L) 36.0 - 48.0 % TBH TBH MCV 82.3 81.0 - 99.0 fL TBH TBH MCH 27.2 26.7 - 34.0 pg TBH TBH MCHC 33.0 29.9 - 35.2 g/dL TBH TBH RDW 13.0 11.0 - 15.0 % TBH TBH PLT 254 150 - 450 10 3/uL TBH TBH MPV 9.1(L) 9.5 - 13.5 fL TBH NEUTROPHILS PERCENT AUTO 79.2(H) 43.0 - 75.0 % TBH LYMPHOCYTES PERCENT AUTO 14.2(L) 20.5 - 60.0 % TBH MONOCYTES PERCENT AUTO 6.1 1.7 - 12.0 % TBH TBH EO % 0.2(L) 0.9 - 7.0 % TBH BASOPHILS PERCENT AUTO 0.1(L) 0.2 - 2.0 % TBH IMMATURE GRANULOCYTES PCT AUTO 0.2 0.0 - 0.5 % TBH NEUTROPHILS ABSOLUTE AUTO 7.7(H) 1.4 - 6.5 10 3/uL TBH LYMPHOCYTES ABSOLUTE AUTO 1.4 1.2 - 3.8 10 3/uL TBH MONOCYTES ABSOLUTE AUTO 0.6 0.3 - 0.8 10 3/uL TBH TBH EO # 0.0 0.0 - 0.7 10 3/uL TBH BASOPHILS ABSOLUTE AUTO 0.0 0.0 - 0.1 10 3/uL TBH IMMATURE GRANULOCYTES ABS AUTO 0.02 0.00 - 0.03 10 3/uL TBH 01/11/2025 2:14 PM EDT 01/11/2025 2:18 PM EDT Narrative CLINISYNC - 01/11/2025 2:27 PM EDT Maryanne FOWLER CLINISYNC Final Result CLINISYNC TB documented in this encounter Visit Diagnoses Not on filedocumented in this encounter Care Teams Safety Admin Assistant Relationship Specialty Start Date End Date David Awan MD [address] [place] [address] PCP - General Family Medicine 07/18/24 documented as of this encounter
--- OUTSIDE RECORDS SUMMARY | 2025-01-20 10:04 | XMS_ITS | Encounter Summary ---
Author Organization [facility] Address [address] [place] [address] Care Team Providers Care Cleaner And Polisher Name Role Phone Hazel Grady MD Primary Care Provider [phone] Encounter Details Date Type Department Care Team (Late st Contact Info) Description 01/10/2025 Clinisync Result Encounter [facility] External Department Unsolicited Yogesh Canales, DO [address] [place] [address] Social History Tobacco Use Types Packs/Day Years [...] Routine [facility] BCP OB [address] [place] [address] Yogesh Canales DO [address] [place] [address] documented as of this encounter Procedures Procedure Name Priority Date/Time Associated Diagnosis Comments US OB BPP W NON-STRESS 01/10/2025 10:44 AM EDT documented in this encounter Results * US OB BPP W NON-STRESS (01/10/2025 10:44 AM EDT) Anatomical Region Laterality Modality Other 01/10/2025 10:4 4 AM EDT Narrative 01/10/2025 10:47 [place] [address] Ultrasound Report Signed Patient: JIMBO DOE MR#: [id number] : 2005 Acct:[id number] Age/Sex: 19 / F ADM Date: 01/10/25 Loc: [facility] 250-[address]: Yogesh Canales D.O. Ordering Physician: Yogesh Canales D.O. Date of Service: 01/10/25 Procedure(s): US OB BPP w non-stress Accession Number(s): [id number] cc: Yogesh Canales D.O.; HAZEL GRADY [place] [address] Patient Name: JIMBO DOE MRN: [id number] date: 2005 Sex: F Assigned Patient Location: [facility] Current Patient Location: [facility] Accession/Order Number: [id number] Exam Date: 01/10/2025 10:39 Report Date: 01/10/2025 10:44 At the request of: YOGESH CANALES DO Procedure: US OB BPP w non-stress BIOPHYSICAL PROFILE: CLINICAL INFORMATION: OLIGOHYDRAMNIOS O41.09X1 COMPARISON: 01/03/2025 There is a single live intrauterine gestation in cephalic presentation. The reported gestational age is 32 weeks 4 days. The heart rate cjwkfviz403 beats per minute. FINDINGS: TONE: 1 or [...] Nascimento M.D. 01/10/2025 10:44 AM Dictation Location: [place] [address] Electronically authenticated by: [id number] Y Date: 01/10/2025 10:44 Dictated By: Aparna Nascimento M.D. Signed By: 01/10/25 1047 DD/ 1044 TD/TT: Regulatory Affairs Spec: Procedure Note Radiology, Radiologist, - 01/10/2025 [place] [address] Ultrasound Report Signed Patient: JIMBO DOE RMR#: [id number] : 2005Acct:[id number] Age/Sex: 19 / FADM Date: 01/10/25 Loc: [facility] 250-[address]: Yogesh Canales D.O. Ordering Physician: Yogesh Canales D.O. Date of Service: 01/10/25 Procedure(s): US OB BPP w non-stress Accession Number(s): [id number] cc: Yogesh Canales D.O.; AHZEL GRADY The [place] [id number] Patient Name: JIMBO DOE MRN: [id number] date: 2005 Sex: F Assigned Patient Location: [facility] Current Patient Location: [facility] Accession/Order Number: [id number] Exam Date: 01/10/2025 10:39 Report Date: 01/10/2025 10:44 At the request of: YOGESH CANALES DO Procedure: US OB BPP w non-stress BIOPHYSICAL PROFILE: CLINICAL INFORMATION: OLIGOHYDRAMNIOS O41.09X1 COMPARISON: 01/03/2025 There is a single live intrauterine gestation in cephalic presentation.The reported gestational age is 32 weeks 4 days. The heart zzxsvriohxve709 beats per minute. FINDINGS: TONE: 1 or [...] Nascimento M.D. 01/10/2025 10:44 AM Dictation Location: [place] [address] Electronically authenticated by: [id number] Y Date: 0:44 Dictated By: Aparna Nascimento M.D. Signed By:01/10/25 1047 DD/ 1044 TD/TT: Regulatory Affairs Spec: us Yogesh Ally DO [facility] Final Result documented in this encounter Visit Diagnoses Not on filedocumented in this encounter Care Teams Cleaner And Polisher Relationship Specialty Start Date End Date Hazel Grady MD [address] [place] [address] PCP - General Family Medicine 07/18/24 documented as of this encounter
--- OUTSIDE RECORDS SUMMARY | 2025-01-20 10:04 | XMS_ITS | Encounter Summary ---
Author Organization [facility] Address [address] [place] [address] Care Team Providers Care .Net Architect Name Role Phone David Awan MD Primary Care Provider [phone] Encounter Details Date Type Department Care Team (Late st Contact Info) Description 01/18/2025 Abstract [facility] BCP OB [address] [place] [address] Zita Jade MA Social History Tobacco Use Types Packs/Day Years [...] Routine [facility] BCP OB [address] [place] [address] Cb Canales DO [address], [facility]11 documented as of this encounter Visit Diagnoses Not on filedocumented in this encounter Care Teams .Net Architect Relationship Specialty Start Date End Date David Awan MD [address] [place] [id number] PCP - General Family Medicine 07/18/24 documented as of this encounter
--- OUTSIDE RECORDS SUMMARY | 2025-01-20 10:04 | XMS_ITS | Encounter Summary ---
Author Organization [facility] Address [address] [place] [address] Care Team Providers Care Android Platform Developer Name Role Phone David Awan MD Primary Care Provider [phone] Encounter Details Date Type Department Care Team (Late st Contact Info) Description 01/06/2025 Clinisync Result Encounter [facility] External Department Unsolicited Cb Canales, DO [address] [place] [address] Social History Tobacco Use Types Packs/Day Years [...] Routine [facility] BCP OB [address] [place] [address] Cb Canales DO [address] [place] [address] documented as of this encounter Procedures Procedure Name Priority Date/Time Associated Diagnosis Comments AMNISURE Routine 01/06/2025 11:15 AM EDT documented in this encounter Results * AMNISURE (01/06/2025 11:15 AM EDT) Pathologist [facility] AMNISURE NEGATIVE NEGATIVE [facility] 01/06/2025 11:1 5 AM EDT 01/06/2025 11:29 AM EDT Narrative [facility] - 01/06/2025 11:41 AM EDT us Cb Ally DO LAB BLOOD ORDERABLES Final Resul t [facility] documented in this encounter Visit Diagnoses Not on filedocumented in this encounter Care Teams Android Platform Developer Relationship Specialty Start Date End Date David Awan MD [address] [place] [address] PCP - General Family Medicine 07/18/24 documented as of this encounter
--- OUTSIDE RECORDS SUMMARY | 2025-01-20 10:04 | XMS_ITS | Encounter Summary ---
Author Organization [facility] Address [address] [place] [address] Care Team Providers Care Package Reinspector Name Role Phone David Awan MD Primary Care Provider [phone] Encounter Details Date Type Department Care Team (Late st Contact Info) Description 01/18/2025 External Result Encounter [facility] BCP OB [address] [place] [address] Yogesh Canales DO [address] [place], [facility]11 Social History Tobacco Use Types Packs/Day [...] Routine [facility] BCP OB [address] [place] [address] Yogesh Canales DO [address] [place], [place] [id number] documented as of this encounter Procedures Procedure Name Priority Date/Time Associated Diagnosis Comments US OB 14+ WEEKS ANATOMY SCAN 01/18/2025 10:30 AM EDT documented in this encounter Results * US OB 14+ weeks anatomy scan (01/18/2025 10:30 AM EDT) Anatomical Region Laterality Modality Body Ultrasound 01/18/2025 10:3 0 AM EDT Narrative 01/18/2025 10:30 AM EDT THIS EXAM WAS PERFORMED AT [facility] NAME: BROOK CHOI : 2005 SEX: F Accession Number: [id number] ORDERING PHYSICIAN: YOGESH CANALES REFERRING PHYSICIAN: YOGESH CANALES Coding ----- --------- Procedures 15535: Ultrasound, uterus, real time with image documentation, [...] weight 140 kg, 308 lb. BMI 46.67 kg/m???. Initial BMI 45.48 kg/m???. Weight gain 4 kg, 8 lb Method [...] amount. MVP 4.5 cm. JEROD 8.4 cm. Q1 2.1 cm, Q2 4.5 [...] EFW (oz) 14 oz EFW by: Hadlock (SBS-HF-GF-FL) Extended Tibia 56.1 mm 32w 6d 45% Tj Broomcorn Press Feeder 2.0 mm Head / Face / Neck [...] Heart / Thorax RVOT view. LVOT view. 2-roilyr-hwpzyrl view. Aortic arch view. Bicaval view. Ductal [...] primary OB provider unless otherwise specified by M. Results forwarded to ordering provider so they can follow up with the patient as necessary. Procedure Note Radiology, RadiologistMD - 01/18/2025 THIS EXAM WAS PERFORMED AT [facility] NAME: BROOK CHOI : 2005 SEX: F Accession Number: [id number] ORDERING PHYSICIAN: YOGESH CANALES REFERRING PHYSICIAN: YOGESH CANALES Coding ----- --------- Procedures 50477: Ultrasound, uterus, real time with imagedocumentation, and maternal evaluation plus detailed anatomic examination, transabdominalapproach;single or first gestation Indication ----- --------- Screening for Anatomic Survey, Obesity in , low JEROD in office History ----- --------- OB History 1 Maternal Assessment ----- --------- Physical Exam Height 175 cm, 5 ft 9 in. Weight 143 kg, 316 lb. Initialweight 140 kg, 308 lb. BMI 46.67 kg/m???. Initial BMI 45.48 kg/m???. Weight gain 4 kg, 8 lb Method [...] EFW (oz) 14 oz EFW by: Hadlock (AXD-TL-IN-FL) Extended Tibia 56.1 mm 32w 6d 45% Tj Broomcorn Press Feeder 2.0 mm Head / Face / Neck [...] Heart / Thorax RVOT view. LVOT view. 7-jbagjo-jtbijlp view. Aortic archview. Bicaval view. Ductal arch [...] follow up with thepatient as necessary. us Yogesh Ally DO IMG OB US PROCEDURES Final Resul t documented in this encounter Visit Diagnoses Not on filedocumented in this encounter Care Teams Package Reinspector Relationship Specialty Start Date End Date David Awan MD [address] [place] [address] PCP - General Family Medicine 07/18/24 documented as of this encounter
--- OUTSIDE RECORDS SUMMARY | 2025-01-20 10:04 | XMS_ITS | Encounter Summary ---
Author Organization [facility] Address [address] [place] [address] Care Team Providers Care Control Room Tender Name Role Phone Hazel Grady MD Primary Care Provider [phone] Encounter Details Date Type Department Care Team (Late st Contact Info) Description 07/19/2024 Clinisync Result Encounter [facility] External Department Unsolicited Yogesh Canales, DO [address] [place] [address] Social History Tobacco Use Types Packs/Day Years [...] Routine [facility] BCP OB [address] [place] [address] Yogesh Canales DO [address] [place] [address] documented as of this encounter Procedures Procedure Name Priority Date/Time Associated Diagnosis Comments US OB TRANSVAGINAL 07/19/2024 4: 28 AM EST documented in this encounter Results * US OB TRANSVAGINAL (07/19/2024 4:28 AM EST) Anatomical Region Laterality Modality Other 07/19/2024 4:28 AM EST Narrative 07/19/2024 4:31 [place] [address] Ultrasound Report Signed Patient: JIMBO DOE MR#: [id number] : 2005 Acct:[id number] Age/Sex: 18 / F ADM Date: 07/18/24 Loc: [facility] Attending Dr: Yogesh Canales D.O. Ordering Physician: Yogesh Canales D.O. Date of Service: 07/18/24 Procedure(s): US OB transvaginal Accession Number(s): [id number] cc: Yogesh Canales D.O.; HAZEL GRADY [place] [address] Patient Name: JIMBO DOE MRN: [id number] date: 2005 Sex: F Assigned Patient Location: [facility] Current Patient Location: Accession/Order Number: [id number] Exam Date: 07/18/2024 10:06 Report Date: 07/19/2024 [...] Signed By: 07/19/24 0431 DD/ 0428 TD/TT: Deep Fat Fry Cook: Procedure Note Radiology, Radiologist, - 07/19/2024 [place] [address] Ultrasound Report Signed Patient: JIMBO DOE RMR#: [id number] : 2005Acct:[id number] Age/Sex: 18 / FADM Date: 07/18/24 Loc: [facility] Attending Dr: Yogesh Canales D.O. Ordering Physician: Yogesh Canales D.O. Date of Service: 07/18/24 Procedure(s): US OB transvaginal Accession Number(s): [id number] cc: Yogesh Canales D.O.; HAZEL GRADY [place] [address] Patient Name: JIMBO DOE MRN: [id number] date: 2005 Sex: F Assigned Patient [facility] Current Patient Location: Accession/Order Number: [id number] Exam Date: 07/18/2024 10:06 Report Date: 07/19/2024 [...] Salbador Sofia M.D. Signed By:07/19/241 DD/ TD/TT: Deep Fat Fry Cook: us Yogesh Canales DO [facility] Final Result documented in this encounter Visit Diagnoses Not on filedocumented in this encounter Care Teams Control Room Tender Relationship Specialty Start Date End Date Hazel Grady MD [address] [place] [address] PCP - General Family Medicine 07/18/24 documented as of this encounter
--- OUTSIDE RECORDS SUMMARY | 2025-01-20 10:04 | XMS_ITS | Encounter Summary ---
Author Organization [facility] [employer] [facility] tem Address [id number] [address] [place] [address] Care Team Providers Care Chiller Operator Name Role Phone Unavailable Primary Care Provider Unavailabl e Encounter Details Date Type Department Care Team (Late st Contact Info) Description 01/04/2025 Abstract Maternal- Medicine at [facility] [address] [place] [phone] Mike Lay MD [address] [facility] [address] [place] [address] Social History Tobacco Use Types Packs/Day Years [...] ORDERABLES Jessica l Result Performing Organization Address City/[facility] Co de Phone Number MANUALLY TRANSCRIBED RESULTS * Rubella IGG immune status (08/05/2024) Rubella immune IgG immune MANUALLY TRANSCRIBED RESULTS Blood Venous blood / Unknown us Not In System Ref Prov LAB BLOOD ORDERABLES Jessica l Result Performing Organization Address City/[facility] Co de Phone Number MANUALLY TRANSCRIBED RESULTS * Syphilis Total (Unknown Syphilis Status) (08/05/2024) Syphilis non reactive MANUALL Y TRANSCRIBED RESULTS Blood Venous blood / Unknown us Not In System Ref Prov LAB BLOOD ORDERABLES Jessica l Result MANUALLY TRANSCRIBED RESULTS documented in this encounter Visit Diagnoses Not on filedocumented in this encounter
--- OUTSIDE RECORDS SUMMARY | 2025-01-20 10:04 | XMS_ITS | Encounter Summary ---
Author Organization [facility] Address [address] [place] [address] Care Team Providers Care Pneumatic Tube Fitter Name Role Phone Hazel Grady MD Primary Care Provider [phone] Encounter Details Date Type Department Care Team (Late st Contact Info) Description 01/17/2025 Clinisync Result Encounter [facility] External Department Unsolicited Yogesh Canales, DO [address] [place] [address] Social History Tobacco Use Types Packs/Day Years [...] Routine [facility] BCP OB [address] [place] [address] Yogesh Canales DO [address] [place] [address] documented as of this encounter Procedures Procedure Name Priority Date/Time Associated Diagnosis Comments US OB BPP W NON-STRESS 01/17/2025 10:51 AM EDT documented in this encounter Results * US OB BPP W NON-STRESS (01/17/2025 10:51 AM EDT) Anatomical Region Laterality Modality Other 01/17/2025 10:5 1 AM EDT Narrative 01/17/2025 10:54 [place] [address] Ultrasound Report Signed Patient: JIMBO DOE MR#: [id number] : 2005 Acct:[id number] Age/Sex: 19 / F ADM Date: 01/17/25 Loc: [facility] 254-[address]: Yogesh Canales D.O. Ordering Physician: Yogesh Canales D.O. Date of Service: 01/17/25 Procedure(s): US OB BPP w non-stress Accession Number(s): [id number] cc: Yogesh Canales D.O.; HAZEL GRADY [place] [address] Patient Name: JIMBO DOE MRN: [id number] date: 2005 Sex: F Assigned Patient Location: [facility] Current Patient Location: [facility] Accession/Order Number: [id number] Exam Date: 01/17/2025 10:50 Report Date: 01/17/2025 10:51 At the request of: YOGESH CANALES DO Procedure: US OB BPP w non-stress BIOPHYSICAL PROFILE: CLINICAL INFORMATION: oligohydramnios COMPARISON: 01/10/2025 There is a single live intrauterine gestation in cephalic presentation. The reported gestational age is 33 weeks 4 days. The heart rate yqzllivp999 beats per minute. FINDINGS: TONE: 1 or [...] greater than 2 cm [Y] 2/2 JEROD: 11.1 cm. This is in low-normal range (5th percentile 8.2 cm). Total score: 8/8 US/US OB BPP w non-stress IMPRESSION: NORMAL BIOPHYSICAL PROFILE. Impression dictated by: Aparna Nascimento M.D. 01/17/2025 10:51 AM Dictation Location: [place] [address] Electronically authenticated by: [id number] Y Date: 01/17/2025 10:51 Dictated By: Aparna Nascimento M.D. Signed By: 01/17/25 1054 DD/ 1051 TD/TT: Traffic Division Commanding Officer: Procedure Note Radiology, Radiologist, MD - 01/17/2025 [place] [address] Ultrasound Report Signed Patient: JIMBO DOE RMR#: [id number] : 2005Acct:[id number] Age/Sex: 19 / FADM Date: 01/17/25 Loc: [facility] 254-[address]: Yogesh Canales D.O. Ordering Physician: Yogesh Canales D.O. Date of Service: 01/17/25 Procedure(s): US OB BPP w non-stress Accession Number(s): [id number] cc: Yogesh Canales D.O.; HAZEL GRADY [place] [address] Patient Name: JIMBO DOE MRN: [facility]:[id number] date: 2005 Sex: F Assigned Patient Location: [facility] Current Patient Location: [facility] Accession/Order Number: [id number] Exam Date: 01/17/2025 10:50 Report Date: 01/17/2025 10:51 At the request of: YOGESH CANALES DO Procedure: US OB BPP w non-stress BIOPHYSICAL PROFILE: CLINICAL INFORMATION: oligohydramnios COMPARISON: 01/10/2025 There is a single live intrauterine gestation in cephalic presentation.The reported gestational age is 33 weeks 4 days. The heart enyoqzyfcalz163 beats per minute. FINDINGS: TONE: 1 or [...] greater than 2 cm [Y] 2/2 JEROD: 11.1 cm. This is in low-normal range (5th percentile 8.2cm). Total score: 03/16 US/US OB BPP w non-stress IMPRESSION: NORMAL BIOPHYSICAL PROFILE. Impression dictated by: Aparna Nascimento M.D. 01/17/2025 10:51 AM Dictation Location: [place] [address] Electronically authenticated by: [id number] Y Date: 0:51 Dictated By: Aparna Nascimento M.D. Signed By:01/17/25 1054 DD/ 1051 TD/TT: Traffic Division Commanding Officer: [facility] Ally DO [facility] Final Result documented in this encounter Visit Diagnoses Not on filedocumented in this encounter Care Teams Pneumatic Tube Fitter Relationship Specialty Start Date End Date Hazel Grady MD [address] [place] [address] PCP - General Family Medicine 07/18/24 documented as of this encounter
--- OUTSIDE RECORDS SUMMARY | 2025-01-20 10:04 | XMS_ITS | Encounter Summary ---
Author Organization [facility] Address [address] [place] [address] Care Team Providers Care Adobe Ball Mixer Name Role Phone David Awan MD Primary Care Provider Encounter Details Date Type Department Care Team (Late st Contact Info) Description 07/18/2024 Abstract [facility] BCP OB [address] [place] [phone] Cb Canales DO [facility] [address], [facility]11 Social History Tobacco Use Types Packs/Day [...] Routine [facility] BCP OB [address] [place] [address] Cb Canales DO [facility] [place], [place] [address] documented as of this encounter Visit Diagnoses Not on filedocumented in this encounter Care Teams Adobe Ball Mixer Relationship Specialty Start Date End Date David Awan MD [address] [place] [address] PCP - General Family Medicine 07/18/24 documented as of this encounter
--- OUTSIDE RECORDS SUMMARY | 2025-01-20 10:04 | XMS_ITS | Encounter Summary ---
Author Organization [facility] Address [address] [place] [address] Care Team Providers Care Wheat Cleaner Name Role Phone David Awan MD Primary Care Provider Encounter Details Date Type Department Care Team (Late st Contact Info) Description 08/08/2024 Abstract [facility] BCP OB [address] [place] [phone] Cb Canales DO [facility] [address], [facility]11 Social History Tobacco Use Types Packs/Day Years [...] Routine [facility] BCP OB [address] [place] [address] Cb Canales DO [facility] [address], [place] [address] documented as of this encounter Visit Diagnoses Not on filedocumented in this encounter Care Teams Wheat Cleaner Relationship Specialty Start Date End Date David Awan MD [address] [place] [address] PCP - General Family Medicine 07/18/24 documented as of this encounter
--- OUTSIDE RECORDS SUMMARY | 2025-01-20 10:04 | XMS_ITS | Encounter Summary ---
Author Organization [facility] Address [address] [place] [address] Care Team Providers Care Ironworker Apprentice Name Role Phone David Awan MD Primary Care Provider Encounter Details Date Type Department Care Team (Late st Contact Info) Description 01/11/2025 Bamboo flowsheet [facility] BCP OB [address] [facility] [place] [address] Maryanne Whiteside PA [address] [place] [address] [address] [place], [facility]11 Social History Tobacco Use Types Packs/Day Years [...] AM EDT Routine [facility] BCP OB [address] [address] Cb Canales DO [address] [place] [address] Dr [address] [place], [facility] documented as of this encounter Visit Diagnoses Not on filedocumented in this encounter Care Teams Ironworker Apprentice Relationship Specialty Start Date End Date David Awan MD [address] [place] [address] PCP - General Family Medicine 07/18/24 documented as of this encounter
--- OUTSIDE RECORDS SUMMARY | 2025-01-20 10:04 | XMS_ITS | CCD ---
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 Name Role Phone Almaz Huerta [...] Translations: [amoxicillin] Drug Allergy 4 swelling, Rash [facility] Repository (1 source) Amoxicillin Drug Allergy 6 [facility] Repository (1 source) Amoxicillin Drug Allergy 4 [facility] Repository Medications Current Medications Medication Drug [...] (Original) ondansetron 4 mg disintegrating oral tablet (18 sources) Serotonin-3 Receptor Antagonist Start: 07-18-2024 End: [...] Test Name Value Interpretation Reference Range Facility OB BPP W NON-STRESS on 01-17-2025 [place] [address] Ultrasound Report Signed Patient: FRANCES DOE MR#: [id number] : 2005 Acct:[id number] Age/Sex: 19 / F ADM Date: 01/17/25 Loc: [facility] 254-[address]: Yogesh Canales D.O. Ordering Physician: Yogesh Canales D.O. Date of Service: 01/17/25 Procedure(s): US OB BPP w non-stress Accession Number(s): [id number] cc: Yogesh Canales D.O.; HAZEL GRADY The [address] [address] Patient Name: FRANCES DOE MRN: [id number] date: 2005 Sex: F Assigned Patient Location: [facility] Current Patient Location: [facility] Accession/Order Number: [id number] Exam Date: 01/17/2025 10:50 Report Date: 01/17/2025 10:51 At the request of: YOGESH CANALES DO Procedure: US OB BPP w non-stress BIOPHYSICAL PROFILE: CLINICAL INFORMATION: oligohydramnios COMPARISON: 01/10/2025 There is a single live intrauterine gestation in cephalic presentation. The reported gestational age is 33 weeks 4 days. The heart rate dipzkljt359 beats per minute. FINDINGS: TONE: 1 or [...] Nascimento M.D. 01/17/2025 10:51 AM Dictation Location: [place] [address] Electronically authenticated by: [id number] Y Date: 01/17/2025 10:51 Dictated By: Aparna Nascimento M.D. Signed By: 01/17/25 1054 DD/ 1051 TD/TT: Manager Licensing: [facility] Radiology, Radiologist, MD - 01/17/2025 [place] [address] Ultrasound Report Signed Patient: FRANCES DOE MR#: [id number] : 2005 Acct:[id number] Age/Sex: 19 / F ADM Date: 01/17/25 Loc: [facility] 254-[address]: Yogesh Canales D.O. Ordering Physician: Yogesh Canales D.O. Date of Service: 01/17/25 Procedure(s): US OB BPP w non-stress Accession Number(s): [id number] cc: Yogesh Canales D.O.; HAZEL GRADY [place] [address] Patient Name: FRANCES DOE MRN: [facility]:[id number] date: 2005 Sex: F Assigned Patient Location: [facility] Current Patient Location: [facility] Accession/Order Number: [id number] Exam Date: 01/17/2025 10:50 Report Date: 01/17/2025 10:51 At the request of: YOGESH CANALES DO Procedure: US OB BPP w non-stress BIOPHYSICAL PROFILE: CLINICAL INFORMATION: oligohydramnios COMPARISON: 01/10/2025 There is a single live intrauterine gestation in cephalic presentation. The reported gestational age is 33 weeks 4 days. The heart rate atplxjci213 beats per minute. FINDINGS: TONE: 1 or [...] Nascimento M.D. 01/17/2025 10:51 AM Dictation Location: [place] [address] Electronically authenticated by: [id number] Y Date: 01/17/2025 10:51 Dictated By: Aparna Nascimento M.D. Signed By: 01/17/25 1054 DD/ 1051 TD/TT: Manager Licensing: [facility] Radiology Study observation (narrative) [facility] OB BPP W NON-STRESS Ordered By: Radiologist Radiology on 01-17-2025 [facility] [employer] Work Phone: ALL CBC WITH AUTO DIFFon BASOPHILS ABSOLUTE AUTO 0 [facility] Basophils/100 WBC (Bld) 0.1 % Low 0.2 - 2.0 % [facility] Eosinophils/100 WBC (Bld) 0.2 % Low 0.9 - 7.0 % [facility] Erythrocyte distribution width (RBC) [Ratio] 13 % 11.0 - 15.0 % [facility] Hematocrit (Bld) [Volume fraction] 31.2 % Low 36.0 - 48.0 % [facility] Hemoglobin (Bld) [Mass/Vol] 10.3 g/dL Low 12.0 - 16.0 g/dL [facility] IMMATURE GRANULOCYTES ABS AUTO 0.02 [facility] Immature granulocytes/100 WBC (Bld) 0.2 % 0.0 - 0.5 % [facility] Interpretation and review of laboratory results Abnormal [facility] LYMPHOCYTES ABSOLUTE AUTO 1.4 [facility] Lymphocytes/100 WBC (Bld) 14.2 % Low 20.5 - 60.0 % [facility] MCH (RBC) [Entitic mass] 27.2 pg 26.7 - 34.0 pg [facility] MCHC (RBC) [Mass/Vol] 33 g/dL 29.9 - 35.2 g/dL [facility] MCV (RBC) [Entitic vol] 82.3 fL 81.0 - 99.0 fL [facility] MONOCYTES ABSOLUTE AUTO 0.6 [facility] Monocytes/100 WBC (Bld) 6.1 % 1.7 - 12.0 % [facility] NEUTROPHILS ABSOLUTE AUTO 7.7 High [facility] [...] OB BPP W NON-STRESS on 01-03-[address] [address] Ultrasound Report Signed Patient: FRANCES DOE MR#: [id number] : 2005 Acct:[id number] Age/Sex: 19 / F ADM Date: 01/03/25 Loc: [facility] 251-[address]: Yogesh Canales D.O. Ordering Physician: Yogesh Canales D.O. Date of Service: 01/03/25 Procedure(s): US OB BPP w non-stress Accession Number(s): [id number] cc: Yogesh Canales D.O.; HAZEL GRADY [place] [address] Patient Name: FRANCES DOE MRN: [facility]:[id number] date: 2005 Sex: F Assigned Patient Location: [facility] Current Patient Location: [facility] Accession/Order Number: [id number] Exam Date: 01/03/2025 10:37 Report Date: 01/03/2025 10:43 At the request of: YOGESH CANALES DO Procedure: US OB BPP w non-stress BIOPHYSICAL PROFILE: CLINICAL INFORMATION: Oligohydramnios O41.03x1 COMPARISON: 07/18/2024 There is a single live intrauterine gestation in cephalic presentation. The reported gestational age is 31 weeks 4 days. The heart rate nbzlsine420 beats per minute. FINDINGS: TONE: 1 or [...] Nascimento M.D. 01/03/2025 10:43 AM Dictation Location: [place] [address] Electronically authenticated by: [id number] Y Date: 01/03/2025 10:43 Dictated By: Aparna Nascimento M.D. Signed By: 01/03/25 1046 DD/ 1043 TD/TT: Manager Licensing: [facility] Radiology, Radiologist, - 01/03/2025 [place] [address] Ultrasound Report Signed Patient: FRANCES DOE MR#: [id number] : 2005 Acct:[id number] Age/Sex: 19 / F ADM Date: 01/03/25 Loc: [facility] 251-[address]: Yogesh Canales D.O. Ordering Physician: Yogesh Canales D.O. Date of Service: 01/03/25 Procedure(s): US OB BPP w non-stress Accession Number(s): [id number] cc: Yogesh Canales D.O.; HAZEL GRADY The [place] [address] Patient Name: FRANCES DOE MRN: [facility]:[id number] date: 2005 Sex: F Assigned Patient Location: [facility] Current Patient Location: [facility] Accession/Order Number: [id number] Exam Date: 01/03/2025 10:37 Report Date: 01/03/2025 10:43 At the request of: YOGESH CANALES DO Procedure: US OB BPP w non-stress BIOPHYSICAL PROFILE: CLINICAL INFORMATION: Oligohydramnios O41.03x1 COMPARISON: 07/18/2024 There is a single live intrauterine gestation in cephalic presentation. The reported gestational age is 31 weeks 4 days. The heart rate [id number] beats per minute. FINDINGS: TONE: 1 or [...] Nascimento M.D. 01/03/2025 10:43 AM Dictation Location: [place] [address] Electronically authenticated by: [id number] Y Date: 01/03/2025 10:43 Dictated By: Aparna Nascimento M.D. Signed By: 01/03/25 1046 DD/ 1043 TD/TT: Manager Licensing: [facility] [employer] Radiology Study observation (narrative) [facility] US OB BPP W NON-STRESS Ordered By: Radiologist Radiology on 01-03-2025 [employer] Work Phone: US OB FOLLOW UP [...] II, MD, PHD at 29-Dec-2024 12:17:39 PM [facility] Normal Not Available Comment on above: Order Comment: US OB SCAN FOR GROWTH Estimated Date of Delivery: 03/03/25 Gestational Age as of 12/06/2024: 27w4d Urinalysis macro (dipstick) panel (U)on 12-28-2024 Bilirubin, UA Negative Negative - 4(70) +++ mg/dL [facility] Blood, UA Negative Negative - 50 Sam/mcL [facility] Clarity, UA Clear [facility] re Color, UA Yellow [facility] Glucose, UA Negative Negative - 1999(110) ++++ mg/dL [facility] Interpretation and review of laboratory results Abnormal [facility] re Ketones, UA Negative Negative - 160(16) ++++ mg/dL [facility] Leukocytes, UA Positive Negative - 500+++ Supa/mcL [facility] Comment on above: small Nitrite, UA Negative Negative - Positive [facility] pH, UA 7 5 - 9 [facility] Protein, UA Positive Negative - 1999(20) ++++ mg/dL [facility] Comment on above: 30mg/dL Spec Grav, UA 1.015 1 - 1.03 [facility] Urobilinogen, UA 0.2 0.2 - 12 mg/dL [facility] ALL CBC WITH AUTO DIFFon BASOPHILS ABSOLUTE AUTO 0 [facility] Basophils/100 WBC (Bld) 0.2 % 0.2 - 2.0 % [facility] Eosinophils/100 WBC (Bld) 0.4 % Low 0.9 - 7.0 % [facility] Erythrocyte distribution width (RBC) [Ratio] 12.7 % 11.0 - 15.0 % [facility] Hematocrit (Bld) [Volume fraction] 34 % Low 36.0 - 48.0 % [facility] Hemoglobin (Bld) [Mass/Vol] 11.5 g/dL Low 12.0 - 16.0 g/dL [facility] IMMATURE GRANULOCYTES ABS AUTO 0.06 High [facility] Immature granulocytes/100 WBC (Bld) 0.5 % 0.0 - 0.5 % [facility] Interpretation and review of laboratory results Abnormal [facility] re LYMPHOCYTES ABSOLUTE AUTO 2.5 [facility] Lymphocytes/100 WBC (Bld) 19.6 % Low 20.5 - 60.0 % [facility] MCH (RBC) [Entitic mass] 28 pg 26.7 - 34.0 pg [facility] MCHC (RBC) [Mass/Vol] 33.8 g/dL 29.9 - 35.2 g/dL [facility] MCV (RBC) [Entitic vol] 82.7 fL 81.0 - 99.0 fL [facility] MONOCYTES ABSOLUTE AUTO 0.8 [facility] Monocytes/100 WBC (Bld) 6.5 % 1.7 - 12.0 % [facility] NEUTROPHILS ABSOLUTE AUTO 9.3 High [facility] Neutrophils/100 WBC (Bld) 72.8 % 43.0 - 75.0 % [facility] Platelet mean volume (Bld) [Entitic vol] 9.5 fL 9.5 - 13.5 fL [facility] TBH EO # 0.1 [facility] TBH PLT 306 [facility] RBC 4.11 Low [facility] WBC 12.7 High [facility] CLINIS[facility]NC [facility] TB[facility] UA (CLEAN/CATCH) ORTHOPAEDIC NURSE/TARSHA RO IF IND.on 12-15-2024 BILIRUBIN URINE Negative NEGATIVE [facility] thcare BLOOD URINE Negative NEGATIVE [facility] re Clarity (U) CLEAR CLEAR [facility] Color (U) LT. YELLOW YELLOW [facility] GLUCOSE URINE UA Negative NEGATIVE mg/dL [facility] Interpretation and review of laboratory results Abnormal [facility] re Ketones Ql (U) Negative NEGATIVE mg/dL [facility] Leukocyte esterase Test strip Ql (U) LARGE Abnormal NEGATIVE [facility] NITRITE URINE Negative NEGATIVE [facility] Health care pH (U) 7.0 [pH] 5.0 - 9.0 [facility] PROTEIN URINE Negative NEG/TRACE mg/dL [facility] SPECIFIC GRAVITY URINE <=1.005 Abnormal 1.005 - 1.025 [facility] URINE MICROSCOPIC INDICATED YES [facility] UROBILINOGEN URINE 0.2 EU/dL 0.2 - 1.0 EU/dL [facility] Urinalysis macro (dipstick) panel (U)on 12-06-2024 Bilirubin, UA Negative Negative - 4(70) +++ mg/dL [facility] Blood, UA Negative Negative - 50 Sam/mcL [facility] Clarity, UA Clear [facility] re Color, UA Yellow [facility] Glucose, UA Negative Negative - 1999(110) ++++ mg/dL [facility] Interpretation and review of laboratory results Abnormal [facility] Ketones, UA Positive Negative - 160(16) ++++ mg/dL [facility] Comment on above: trace Leukocytes, UA Trace Negative - 500+++ Supa/mcL [facility] Nitrite, UA Negative Negative - Positive [facility] pH, UA 5.5 5 - 9 [facility] e Protein, UA Negative Negative - 1999(20) ++++ mg/dL [facility] Spec Grav, UA 1.03 1 - 1.03 [facility] Urobilinogen, UA 0.2 0.2 - 12 mg/dL [facility] ALL CBC WITH AUTO DIFFon BASOPHILS ABSOLUTE AUTO 0 [facility] Basophils/100 WBC (Bld) 0.2 % 0.2 - 2.0 % [facility] Eosinophils/100 WBC (Bld) 0.3 % Low 0.9 - 7.0 % [facility] Erythrocyte distribution width (RBC) [Ratio] 12.8 % 11.0 - 15.0 % [facility] Hematocrit (Bld) [Volume fraction] 34 % Low 36.0 - 48.0 % [facility] e Hemoglobin (Bld) [Mass/Vol] 11.2 g/dL Low 12.0 - 16.0 g/dL [facility] IMMATURE GRANULOCYTES ABS AUTO 0.05 High [facility] Immature granulocytes/100 WBC (Bld) 0.4 % 0.0 - 0.5 % [facility] Interpretation and review of laboratory results Abnormal [facility] re LYMPHOCYTES ABSOLUTE AUTO 2.1 [facility] Lymphocytes/100 WBC (Bld) 17.3 % Low 20.5 - 60.0 % [facility] MCH (RBC) [Entitic mass] 27.7 pg 26.7 - 34.0 pg [facility] MCHC (RBC) [Mass/Vol] 32.9 g/dL 29.9 - 35.2 g/dL [facility] MCV (RBC) [Entitic vol] 84 fL 81.0 - 99.0 fL [facility] MONOCYTES ABSOLUTE AUTO 0.8 [facility] Monocytes/100 WBC (Bld) 6.6 % 1.7 - 12.0 % [facility] NEUTROPHILS ABSOLUTE AUTO 8.9 High [facility] Neutrophils/100 WBC (Bld) 75.2 % High 43.0 - 75.0 % [facility] Platelet mean volume (Bld) [Entitic vol] 9.1 fL Low 9.5 - 13.5 fL [facility] TBH EO # 0 [facility] TB[facility] PLT 281 [facility] RBC 4.05 Low [facility] WBC 11.8 High [facility] US OB LIMITED 1+ FETUSESon [...] II, MD, PHD at 17-Nov-2024 06:24:10 AM [facility] Normal Not Available Comment on above: Order Comment: US OB INCOMPLETE ANATOMY Estimated Date of Delivery: 03/03/25 Gestational Age as of 11/01/2024: 22w4d Urinalysis macro (dipstick) panel (U)on 11-15-2024 Bilirubin, UA Negative Negative - 4(70) +++ mg/dL [facility] Blood, UA Negative Negative - 50 Sam/mcL [facility] Clarity, UA Clear [facility] Color, UA Yellow [facility] Glucose, UA Negative Negative - 2000(110) ++++ mg/dL [facility] Interpretation and review of laboratory results Abnormal [facility] Ketones, UA Negative Negative - 160(16) ++++ mg/dL [facility] Leukocytes, UA Trace Negative - 500+++ Supa/mcL [facility] Nitrite, UA Negative Negative - Positive [facility] pH, UA 6.5 5 - 9 [facility] Protein, UA Trace Negative - 1999(20) ++++ mg/dL [facility] Spec Grav, UA 1.02 1 - 1.03 [facility] Urobilinogen, UA 0.2 0.2 - 12 mg/dL [facility] Urinalysis macro (dipstick) panel (U)on 10-18-2024 Bilirubin, UA Negative Negative - 4(70) +++ mg/dL [facility] Blood, UA Negative Negative - 50 Sam/mcL [facility] Clarity, UA Clear [facility] re Color, UA Yellow [facility] Glucose, UA Negative Negative - 1999(110) ++++ mg/dL [facility] Interpretation and review of laboratory results Normal [facility] re Ketones, UA Negative Negative - 160(16) ++++ mg/dL [facility] Leukocytes, UA Negative Negative - 500+++ Supa/mcL [facility] Nitrite, UA Negative Negative - Positive [facility] pH, UA 6 5 - 9 [facility] Protein, UA Negative Negative - 1999(20) ++++ mg/dL [facility] Spec Grav, UA 1.03 1 - 1.03 [facility] Urobilinogen, UA 0.2 0.2 - 12 mg/dL [facility] RECURRENT VAGINITIS (HTRX)on 09-23-2024 ATOPOBIUM VAGINAE 21.837 Abnormal [facility] ATOPOBIUM VAGINAE Detected Abnormal [facility] BVAB 2,3 (BACTERIAL VAGINOSIS ASSOCIATED BACTERIA 2, 3); MOBILUNCUS SPP 14.391 Abnormal [facility] BVAB 2,3 (BACTERIAL VAGINOSIS ASSOCIATED BACTERIA 2, 3); MOBILUNCUS SPP Detected Abnormal [facility] WILBERT ALBICANS, PARAPSILOSIS, TROPICALIS 0 [facility] WILBERT ALBICANS, PARAPSILOSIS, TROPICALIS Not detected [facility] WILBERT GLABRATA 0 [facility] WILBERT GLABRATA Not detected [facility]althcare W[facility]ERT KRUSEI 0 [facility] WILBERT KRUSEI Not detected Located within [facility] lthcare CHLAMYDIA TRACHOMATIS 0 [facility] CHLAMYDIA TRACHOMATIS Not detected [facility] ERMB, C; MEFA 22.056 Abnormal [facility] ERMB, C; MEFA Detected Abnormal [facility] care GARDNERELLA VAGINALIS 27.529 Abnormal [facility] GARDNERELLA VAGINALIS Detected Abnormal [facility] Interpretation and review of laboratory results Abnormal [facility] re MEGASPHAERA (TYPES 1, 2) 15.923 Abnormal [facility] MEGASPHAERA (TYPES 1, 2) Detected Abnormal [facility] MYCOPLASMA GENITALIUM 0 [facility] MYCOPLASMA GENITALIUM Not detected [facility] NEISSERIA GONORRHOEAE 0 [facility] NEISSERIA GONORRHOEAE Not detected [facility] TET B, TET M 16.766 Abnormal [facility] Healthc are TET B, TET M Detected Abnormal [facility] are TRICHOMONAS VAGINALIS 0 [facility] TRICHOMONAS VAGINALIS Not detected [facility] GLUCOSE 1 HOURon 09-22-2024 Glucose [Mass/Vol] 114 mg/dL NINF - 13 0 mg/dL [facility] US OB [...] II, MD, PHD at 19-Oct-2024 09:01:31 AM [facility] Normal Not Available Comment on above: Order Comment: US OB ANATOMY SINGLE W US OB CERVICAL LENGTH Estimated Date of Delivery: 03/03/25 Gestational Age as of 09/21/2024: 16w5d Urinalysis macro (dipstick) panel (U)Ordered By: Vicky Rodríguez on 09-21-2024 Bilirubin, UA Negative Negative - 4(70) +++ mg/dL [facility] Blood, UA Negative Negative - 50 Sam/mcL [facility] Clarity, UA Clear [facility] re Color, UA Yellow [facility] e Glucose, UA Negative Negative - 1999(110) ++++ mg/dL [facility] Interpretation and review of laboratory results Normal [facility] re Ketones, UA Negative Negative - 160(16) ++++ mg/dL [facility] Leukocytes, UA Negative Negative - 500+++ Supa/mcL [facility] Nitrite, UA Negative Negative - Positive [facility] pH, UA 7.5 5 - 9 [facility] e Protein, UA Negative Negative - 1999(20) ++++ mg/dL [facility] Spec Grav, UA 1.02 1 - 1.03 [facility] Urobilinogen, UA 0.2 0.2 - 12 mg/dL [facility] Urinalysis macro (dipstick) panel (U)on 08-17-2024 Bilirubin, UA Negative Negative - 4(70) +++ mg/dL [facility] Blood, UA Negative Negative - 50 Sam/mcL [facility] Healthcare Clarity, UA Clear [facility] re Color, UA Yellow [facility] Glucose, UA Negative Negative - 1999(110) ++++ mg/dL [facility] Interpretation and review of laboratory results Abnormal [facility] Ketones, UA Negative Negative - 160(16) ++++ mg/dL [facility] Leukocytes, UA Positive Negative - 500+++ Supa/mcL [facility] Comment on above: small Nitrite, UA Negative Negative - Positive [facility] pH, UA 6 5 - 9 [facility] Protein, UA Negative Negative - 1999(20) ++++ mg/dL [facility] Spec Grav, UA 1.03 1 - 1.03 [facility] Urobilinogen, UA 0.2 0.2 - 12 mg/dL [facility] MLR HEMOGLOBIN A1Con 024 Glucose [Mass/Vol] 111 mg/dL [facility] ealthcare HbA1c (Bld) [Mass fraction] 5.5 % 4.5 - 6.2 % [facility] Comment on above: ADA RECOMMENDED LIMI T 4.0 - 6.0 ADA THERAPEUTIC TARGET < 7.0 ACTION SUGGESTED > 7.0 [facility] e Urine Cultureon 08-05-2024 Bacteria identified Cx Nom (U) <9,000 colonies/ml mixed bacterial skin contaminants 2 Days PERFORMED BY: [place] [address] PATHOLOGIST RETAIL ASSOCIATE ELICEO SPENCER M.D. Normal [facility] Comment on above: Performed By: #### C UU #### [address] HCG ( test) Ql (U)o n 07-18-2024 Interpretation and review of laboratory results Abnormal [facility] Preg Test, Ur Positive Negative [facility] Health care [facility] Urinalysis macro (dipstick) panel (U)on 07-18-2024 Bilirubin, UA Negative Negative - 4(70) +++ mg/dL [facility] Blood, UA Negative Negative - 50 Sam/mcL [facility] Clarity, UA Clear [facility] Color, UA Yellow [facility] Glucose, UA Negative Negative - 1999(110) ++++ mg/dL [facility] Interpretation and review of laboratory results Normal [facility] re Ketones, UA Negative Negative - 160(16) ++++ mg/dL [facility] Leukocytes, UA Negative Negative - 500+++ Supa/mcL [facility] Nitrite, UA Negative Negative - Positive [facility] pH, UA 6.5 5 - 9 [facility] [employer] Protein, UA Negative Negative - 1999(20) ++++ mg/dL [facility] Spec Grav, UA 1.02 1 - 1.03 [facility] Urobilinogen, UA 0.2 0.2 - 12 mg/dL [facility] TBH PREG QUANT HCGon 024 HCG QUANTITATIVE 203 mIU/mL Located within [facility] lthcare Comment on above: 5-50 0.2-1 WEEK 50-500 1-2 WEEKS 100-5,000 2-3 WEEKS 500-10,000 3-4 WEEKS 1,000-50,000 4-5 WEEKS 10,000-100,000 5-6 WEEKS 15,000-200,000 6-8 WEEKS 10,000-100,000 2-3 MONTHS [facility] e Quick Strepon 09-17-2023 S. pyogenes Org specific cx Ql (Throat) positve [employer] Other Quick Strep [employer] Other Test, Urineon 08-11 Beta HCG ( test) Ql (U) Negative [facility] QD Vision Other Capillary Glucose POCon Glucose [Mass/Vol] 94 mg/dL Normal 55-99 [facility] Comment on above: Result Comment: Loretta mcneal RN/ Performed By: #### [id number] #### [facility] Laboratory [address] [place] [address] Consent for Treatmenton Consent for Treatment [id number] 0TIFF Normal [facility] Discharge Instructionson Discharge Instructions [id number] 0TIFF Normal [facility] ED Clinical Summaryon 2022 ED Clinical Summary [address] [address] ED Clinical Summary Person Information Name: FRANCES DOE/[facility]_Franco Age: 17 Years : 2005 Sex: Female Language: Macedonian PCP: Hazel Grady MD Marital Status: Single [...] 07/14/2023 03:42:20 07/14/2023 03:42:20 07/14/2023 03:42:20 ADDRESS: [address] [place] [address] DR MONSERRAT [place] [phone] PHYS DOC NOTES: MEDICAL INFORMATION: Prescriptions Given: New Medications [id number], [address], [place] [id number], [phone] azithromycin (azithromycin 250 mg Tab) 1 Tablets By Mouth every day for 4 Days. Refills: 0. PATIENT EDUCATION INFORMATION: Instructions: Viral Illness, Adult; Otitis Media, Adult Follow up: With: Address: When: Hazel Grady [address] [place] [address] Business (2) In 7 days 07/21/2023 DIAGNOSIS: AOM (acute otitis media); Viral illness Normal [facility] ED Note-Physicianon 07-14-20 ED Note-Physician [...] and Complexity of Problems Differential Diagnosis: [] [facility] Data External documents reviewed: N/A [...] day(s), # 4 tab(s), Refills(s) 0, Pharmacy: [facility]/pharmacy #[id number], 175, cm, 07/13/23 [...] In 7 days 07/21/2023 EST [address] [place] [address] [facility] (2) Additional Instructions: Patient Education [...] 94 mg/dL (07/14/23 02:00:00) POC Device SN: [id number] (07/14/23 02:00:00) POC User ID: [id number] (07/14/23 02:00:00) POC Username: POC Username (07/14/23 [...] By: Dom Sarmiento DO 07/14/2023 01:56:22 Normal [facility] Comment on above: Result Comment: Elec [...] Follow these instructions at home: ? Take wtbe-gly-vxicsvt and prescription medicines only as told by [...] Reviewed: 11/03/2021 Elsevier Patient Education ? 2022 Smallable. Infectious Disease Viral Illness, Adult Viruses are [...] cause illne (more content not included)... Normal [facility] ED Patient Summaryon 023 ED Patient Summary [place] [id number] Patient Discharge Instructions Person Information Name: FRANCES DOE Age: 17 Years Arrival Date: 07/13/2023 23:32:13 Discharge Diagnosis: AOM (acute otitis media); Viral illness Primary Care Physician: Hazel Grady MD Provider Information Primary Provider: Dom Sarmiento DO Advanced Automotive Glass Mechanic:None The exam and treatment you received in the Emergency Department were for an urgent problem and are not intended as complete care. It is important that you follow up with a doctor, nurse practitioner, or physician?s bookkeeper assistant for ongoing care. If your symptoms [...] Follow-up Instructions: With: Address: When: Hazel Grady [facility] [address] [place] [id number] [facility] (2) In 7 days 07/21/2023 In the event that this physician does not participate in your insurance network, please consult with your insurance company to find a nearby participating provider. Patient Education Materials: Viral Illness, Adult; Otitis Media, Adult A MESSAGE TO ALL PATIENTS REGARDING OPIOIDS PRESCRIPTION OPIOIDS: WHAT YOU NEED TO KNOW Prescription opioids can be used to help relieve mgipixyn-kj-vkasyd pain and are often prescribed following a [...] be struggling with addiction, tell your health caregiver services home and ask for guidance or call [employer]?S National Helpline at 3-537-246-UTBR. (more content not included)... Normal [facility] Influenza A&B Agon 3 Influenzae A Ag Negative Normal Negative [facility] Comment on above: Performed By: #### 2 [id number] #### [facility] [address] [place] [address] Influenzae B Ag Negative Normal Negative [facility] [...] days after vaccination. Performed By: #### 2 [id number] #### [facility] [address] [place] [address] Prescriptions/Work Noteson 1 09-14-2022 Prescriptions/Work Notes [id number] 0TIFF Normal [facility] Rapid COVID Antigen ([facility])on 07-14-2023 Rapid COV Int NEG Ctl Pass Normal [facility] Comment on above: Performed By: #### 2 [id number] #### [facility] [address] [place] [address] Rapid COV Int POS Ctl Pass Normal [facility] Comment on above: Performed By: #### 2 [id number] #### [facility] [address] [place] [address] SARS-CoV+SARS-CoV-2 (COVID-19) Ag IA.rapid Ql (Resp) Not detected Normal Not Detected [facility] Comment on above: Result Comment: The [employer] System for Rapid Detection of SARS-CoV-2 is [...] other viruses or pathogens; and, in the [facility], this test is only authorized for the duration of the declaration that circumstances exist justifying the authorization of emergency use of in vitro diagnostics for detection and/or diagnosis of the virus that causes COVID-19 under Section 564(b)(1) of the Act, 21 U.S.C. ? 360bbb-3(b)(1), unless the authorization is terminated or revoked sooner. Performed By: #### 2 [id number], [id number], [id number] #### [facility] [address] [place] [address] Resp.syn.virus (Rsv)on 07-14 RSV Ag IA.rapid Ql (Nph) Negative Normal Negative [facility] Comment on above: Performed By: #### 2 [id number], [id number] #### [facility] [address] [place] [address] XR Chest Single Viewon 07-14 XR Chest [...] mGy = na DAP = na Normal [facility]son 12-24-2022 Forms [id number] [id number] Normal [facility] Vital Signs Date Time Vital Sign Value Performing Clinician Facility 01-11-2025 13:41-0400 Body weight 143.34 kg Maryanne FOWLER Work Phone: [facility] 01-11-2025 13:41-0400 Diastolic blood pressure 76 mm[Hg] Maryanne FOWLER Work Phone: [facility] 01-11-2025 13:41-0400 Systolic blood pressure 122 mm[Hg] Maryanne FOWLER Work Phone: [facility] 12-28-2024 10:20-0400 Body weight 139.82 kg Yogesh Ally DO Work Phone: [facility] 12-28-2024 10:20-0400 Diastolic blood pressure 82 mm[Hg] Yogesh Ally DO Work Phone: [facility] 12-28-2024 10:20-0400 Systolic blood pressure 126 mm[Hg] Yogesh Ally DO Work Phone: [facility] 12-06-2024 13:53-0400 Body weight 139.71 kg Lynette Gunter NP Work Phone: [facility] 12-06-2024 13:53-0400 Diastolic blood pressure 70 mm[Hg] Lynette Gunter COMMUNITY ENGAGEMENT COORDINATOR Work Phone: [facility] 12-06-2024 13:53-0400 Systolic blood pressure 114 mm[Hg] Lynette Gunter COMMUNITY ENGAGEMENT COORDINATOR Work Phone: [facility] 11-15-2024 10:36-0400 Body weight 139.16 kg Yogesh Ally DO Work Phone: [facility] 11-15-2024 10:36-0400 Diastolic blood pressure 78 mm[Hg] Yogesh Ally DO Work Phone: [facility] 11-15-2024 10:36-0400 Systolic blood pressure 130 mm[Hg] Yogesh Ally DO Work Phone: [facility] 10-18-2024 14:37-0400 Body weight 136.99 kg Maryanne Miesha PA Work Phone: [facility] 10-18-2024 14:37-0400 Diastolic blood pressure 78 mm[Hg] Maryanne Miesha PA Work Phone: [facility] 10-18-2024 14:37-0400 Systolic blood pressure 130 mm[Hg] Maryanne Baden PA Work Phone: [facility] 09-21-2024 16:43-0500 Body weight 136.9 kg Maryanne Baden PA Work Phone: [facility] 09-21-2024 16:43-0500 Diastolic blood pressure 76 mm[Hg] Maryanne Baden PA Work Phone: [facility] 09-21-2024 16:43-0500 Systolic blood pressure 118 mm[Hg] Maryanne Miesha PA Work Phone: [facility] 08-17-2024 11:52-0500 Body weight 138.8 kg Yogesh Ally DO Work Phone: [facility] 08-17-2024 11:52-0500 Diastolic blood pressure 78 mm[Hg] Yogesh Ally DO Work Phone: [facility] 08-17-2024 11:52-0500 Systolic blood pressure 122 mm[Hg] Yogesh Ally DO Work Phone: [facility] 07-18-2024 11:15-0500 Body weight 139.71 kg Noms Nurse [facility] 07-18-2024 11:15-0500 Diastolic blood pressure 74 mm[Hg] Noms Nurse [facility] 07-18-2024 11:15-0500 Systolic blood pressure 118 mm[Hg] Nom Nurse [facility] 09-17-2023 09:35-0500 Body height 175.26 cm Tiesha Flood Other [facility] Other 09-17-2023 09:35-0500 Body mass index (BMI) [Ratio] 40.16 kg/m2 Tiesha Flood Other [facility] Other 09-17-2023 09:35-0500 Body temperature 99.2 [degF] Tiesha Flood Other [facility] Other 09-17-2023 09:35-0500 Body weight 123.38 kg Tiesha Flood Other [facility] Other 09-17-2023 09:35-0500 Respiratory rate 18 /min Tiesha Flood Other [facility] Other 09-17-2023 09:35-0500 SaO2% (BldA) [Mass fraction] 97 % Tiesha Flood Other [facility] Other 09-02-2023 09:30-0500 Body height 175.26 cm Sheree Cheung Other [facility] Other 09-02-2023 09:30-0500 Body mass index (BMI) [Ratio] 40.21 kg/m2 Sheree Cheung Other [facility] Other 09-02-2023 09:30-0500 Body weight 123.52 kg Sheree Cheung Other [facility] Other 09-02-2023 09:30-0500 Diastolic blood pressure 78 mm[Hg] Sheree Cheung Other [facility] Other 09-02-2023 09:30-0500 Respiratory rate 18 /min Sheree Cheung Other [facility] Other 09-02-2023 09:30-0500 SaO2% (BldA) [Mass fraction] 97 % Sheree Cheung Other [facility] Other 09-02-2023 09:30-0500 Systolic blood pressure 120 mm[Hg] Sheree Cheung Other [facility] Other 07-27-2023 09:30-0500 Body height 175.26 cm Sheree Cheung Other [facility] Other 07-27-2023 09:30-0500 Body mass index (BMI) [Ratio] 40.02 kg/m2 Sheree Cheung Other [facility] Other 07-27-2023 09:30-0500 Body weight 122.93 kg Sheree Cheung Other [facility] Other 07-27-2023 09:30-0500 Diastolic blood pressure 76 mm[Hg] Sheree Cheung Other [facility] Other 07-27-2023 09:30-0500 Respiratory rate 16 /min Sheree Cheung Other [facility] Other 07-27-2023 09:30-0500 SaO2% (BldA) [Mass fraction] 98 % Sheree Cheung Other [facility] Other 07-27-2023 09:30-0500 Systolic blood pressure 120 mm[Hg] Sheree Cheung Other [facility] Other 01-21-2022 15:35-0400 Body height 175.26 cm Almaz Huerta Other [facility] Other 01-21-2022 15:35-0400 Body mass index (BMI) [Ratio] 30.86 kg/m2 Almaz Huerta Other [facility] Other 01-21-2022 15:35-0400 Body temperature 97.3 [degF] Almaz Huerta Other [facility] Other 01-21-2022 15:35-0400 Body weight 94.8 kg Almaz Huerta Other [facility] Other 01-21-2022 15:35-0400 Diastolic blood pressure 73 mm[Hg] Almaz Huerta Other [facility] Other 01-21-2022 15:35-0400 Respiratory rate 16 /min Almaz Huetra Other [facility] Other 01-21-2022 15:35-0400 SaO2% (BldA) [Mass fraction] 97 % Almaz Huerta Other [facility] Other 01-21-2022 15:35-0400 Systolic blood pressure 133 mm[Hg] Almaz Huerta Other [facility] Other Encounters Encounter Date Encounter Type Care Provider Facility Start: 01-17-2025 End: 01-17-2025 Clinisync Result Encounter Yogesh Ally DO Work Phone: [facility] Unsolicited Start: 01-17-2025 End: 01-17-2025 Clinisync Result Encounter Yogesh Ally DO Work Phone: [facility] Unsolicited Start: 01-11-2025 End: 01-11-2025 Bamboo flowsheet Maryanne Covarrubias PA Work Phone: [facility] Start: 01-11-2025 End: 01-11-2025 Bamboo flowsheet Maryanne FOWLER Work Phone: [facility] Start: 01-11-2025 End: 01-11-2025 Clinisync Result Encounter Maryanne Camposlashaun FOWLER Work Phone: [facility] Unsolicited [...] 12-06-2024 End: 12-06-2024 Bamboo flowsheet Lynette Lyric COMMUNITY ENGAGEMENT COORDINATOR Work Phone: [facility] Start: 12-06-2024 End: 12-06-2024 Bamboo flowsheet Lynette Lyric COMMUNITY ENGAGEMENT COORDINATOR Work Phone: [facility] Start: 12-06-2024 End: 12-06-2024 flow sheet Lynette Lyric COMMUNITY ENGAGEMENT COORDINATOR Work Phone: [facility] Comment on [...] Start: 09-21-2024 End: 09-21-2024 Bamboo flowsheet Maryanne Baden PA Work Phone: [facility] Start: 09-21-2024 End: 09-23-2024 Bamboo flowsheet Maryanne Covarrubias JANETH Work Phone: [facility] Start: 09-21-2024 End: 09-23-2024 External Result Encounter Maryanne Covarrubias JANETH Work Phone: [facility] Unsolicited Start: 08-17-2024 End: 08-17-2024 Bamboo flowsheet Yogesh Ally DO Work Phone: [facility] Start: 08-17-2024 End: 08-17-2024 Bamboo flowsheet Yogesh Ally DO Work Phone: [facility] Start: 08-17-2024 End: 08-17-2024 flow sheet Yogesh Ally DO Work Phone: [facility] Comment on above: First trimester preg emrly; 11 weeks gestation of ; headache, antepartum Start: 08-17-2024 End: 08-17-2024 ambulatory YOGESH ALLY Not Available Start: 08-05-2024 End: 08-05-2024 Clinisync Result Encounter Yogesh Ally DO Work Phone: [facility] Unsolicited Start: 08-05-2024 End: 08-05-2024 Clinisync Result Encounter Yogesh Ally DO Work Phone: [facility] Unsolicited Start: 08-05-2024 End: 08-05-2024 ambulatory Sheree Cheung Facility:[facility] Start: 07-18-2024 End: 07-18-2024 ambulatory [facility] Ally Nurse [facility] Comment on above: GA: 7w3d Start: 06-26-2024 End: 06-26-2024 Clinisync Result Encounter Maryanne FOWLER Work Phone: [facility] Unsolicited Start: 06-26-2024 End: 06-26-2024 Clinisync Result Encounter Maryanne FOWLER Work Phone: [facility] Unsolicited Start: 09-17-2023 End: 09-17-2023 ambulatory Tiesha Flood Other [facility] Other Start: 09-17-2023 Office outpatient vi sit 15 minutes Tiesha Flood [facility] [place] Start: 09-02-2023 End: 09-02-2023 ambulatory Sheree Cheung Other [facility] Other Start: 09-02-2023 Office outpatient vi sit 25 minutes Sheree Cheung [facility] [place] Start: 07-27-2023 End: 07-27-2023 ambulatory Sheree Cheung Other [facility] Other Start: 07-27-2023 Encounter for genera l adult medical examination without abnormal findings Sheree Cheung [facility] [place] Start: 07-27-2023 Initial preventive medicine new pt age 18-39yrs Sheree Cheung [facility] [place] Start: 07-14-2023 End: 07-14-2023 Emergency department patient visit Dom Sarmiento Facility:[facility] Start: 12-24-2022 ambulatory Dom Sarmiento Facility: [facility] Start: 04-06-2022 End: 04-06-2022 ambulatory HAZEL GRADY Facility: Start: 01-21-2022 (URG) Urgent Care Visit Almaz Benavidezcarolann romero [facility] [place] Start: 01-21-2022 End: 01-21-2022 ambulatory Almaz Deanna Other [facility] Other Procedures Date Procedure Procedure Detail Performing Clinician Start: 01-17-2025 OB BPP W NON-STRESS Yogesh Ally DO Work Phone: Start: 01-11-2025 ALL CBC WITH AUTO DIFF Maryanne FOWLER Work Phone: Start: 01-06-2025 AMNISURE Yogesh Fazi o DO Work Phone: Start: 01-03-2025 OB BPP W NON-STRESS Yogesh Ally DO Work Phone: Start: 12-28-2024 Urnls dip stick/tabl et rgnt non-auto w/o micrscp Yogesh Ally DO Work Phone: Start: 12-16-2024 ALL CBC WITH AUTO DIFF Yogesh Ally DO Work Phone: Start: 12-15-2024 TBH UA (CLEAN/CATCH) ORTHOPAEDIC NURSE/MICRO IF IND. Yogesh Ally DO Work Phone: [...] AM EDT Routine [facility] [address] [place] [address] Yogesh Canales, DO [address] [place] [address] [facility] Start: 01-11-2025 End: 01-11-2026 Bile acids, total Bile acids, total Lab Routine Pruritus Expected: 01/11/2025 (Approximate), Expires: 01/11/2026 [facility] Comment on above: Expected: 01/11/2025 (Approximate), Expires: 01/11/2026 Start: 01-11-2025 End: 01-11-2026 CBC W Auto Differential panel - Blood CBC and differential Lab Routine Pruritus Expected: 01/11/2025 (Approximate), Expires: 01/11/2026 [facility] Comment on above: Expected: 01/11/2025 (Approximate), Expires: 01/11/2026 Start: 01-11-2025 End: 01-11-2026 Hepatic function 2000 panel - Serum or Plasma Hepatic function panel Lab Routine Pruritus Expected: 01/11/2025 (Approximate), Expires: 01/11/2026 [facility] Comment on above: Expected: 01/11/2025 (Approximate), Expires: 01/11/2026 Start: 01-11-2025 End: 01-11-2026 Hepatitis C virus Ab [Presence] in Serum or Plasma by Immunoassay Hepatitis C antibody Lab Routine Pruritus Expected: 01/11/2025 (Approximate), Expires: 01/11/2026 [facility] Work Phone: Comment on above: Expected: 01/11/2025 (Approximate), Expires: 01/11/2026 Start: 01-11-2025 End: 01-11-2026 Thyrotropin [Units/volume] in Serum or Plasma TSH Lab Routine Pruritus Expected: 01/11/2025 (Approximate), Expires: 01/11/2026 [facility] Comment on above: Expected: 01/11/2025 (Approximate), [...] Routine [facility] [address] [place] [phone] Yogesh Canales, DO [address] [place] [address] [facility] Start: 12-28-2024 End: 12-28-2024 Professional / ancillary services management 12/28/2024 9:00 AM EDT Ancillary Procedure [facility] [address] [place] [phone] [facility] Start: 12-06-2024 End: 04-07-2025 US for US OB follow up transabdominal approach Imaging Routine size inconsistent with dates Expected: 12/06/2024, Expires: 04/07/2025 [facility] Work Phone: Comment on above: Expected: 12/06/2024 , Expires: 04/07/2025 Start: 12-06-2024 End: 12-06-2024 Patient encounter procedure [facility] Comment on above: Arrived Start: 11-15-2024 End: 11-15-2025 CBC panel - Blood by Automated count CBC Lab Routine Diabetes mellitus screening Expected: 11/15/2024 (Approximate), Expires: 11/15/2025 [facility] Work Phone: Comment on above: Expected: 11/15/2024 (Approximate), Expires: 11/15/2025 Start: 11-15-2024 End: 11-15-2025 Measurement of glucose 1 hour after glucose challenge for glucose tolerance test Glucose tolerance, 1 hour Lab Routine Diabetes mellitus screening Expected: 11/15/2024 (Approximate), Expires: 11/15/2025 [facility] Comment on above: Expected: 11/15/2024 (Approximate), Expires: 11/15/2025 Start: 11-15-2024 End: 11-15-2024 Patient encounter procedure 11/15/2024 1:10 PM EDT Routine [facility] [address] [place] [phone] oYgesh Canales, DO [address] [place], [place] [phone]- [facility] Start: 10-18-2024 End: 10-18-2024 Patient encounter procedure 10/18/2024 2:30 PM EDT Routine [facility] [address] [facility] [address] Maryanne Covarrubias, PA [address] [place] [address] [facility] Start: 10-18-2024 End: 10-18-2024 Professional / ancillary services management 10/18/2024 1:00 PM EDT Ancillary Procedure [facility] [address] [place] [address] [facility] Start: 09-21-2024 End: 09-21-2024 Patient encounter procedure 09/21/2024 3:20 PM EST Routine [facility] [address] [place] [address] Maryanne Covarrubias PA [address] [place] [address] Arrived [facility] Comment on above: Arrived Start: 09-21-2024 End: 11-19-2024 Alpha fetoprotein, maternal Alpha fetoprotein, maternal Lab Routine Screening, , for anatomic survey Expected: 09/21/2024 (Approximate), Expires: 11/19/2024 [facility] Comment on above: Expected: 09/21/2024 (Approximate), Expires: 11/19/2024 Start: 09-21-2024 End: 09-21-2025 Measurement of glucose 1 hour after glucose challenge for glucose tolerance test Glucose tolerance, 1 hour Lab Routine Diabetes mellitus screening Expected: 09/21/2024 (Approximate), Expires: 09/21/2025 [facility] Comment on above: Expected: 09/21/2024 (Approximate), Expires: 09/21/2025 Start: 09-21-2024 End: 09-21-2025 US for US OB 14+ weeks anatomy scan Imaging Routine Screening, , for anatomic survey Expected: 09/21/2024, Expires: 09/21/2025 [facility] Comment on above: Expected: 09/21/2024 , Expires: 09/21/2025 Start: 09-21-2024 End: 09-21-2024 Patient encounter procedure 09/21/2024 9:30 AM EST Routine [facility] [address] [place] [phone] Maryanne Covarrubias PA [address] [place] [address] [facility] Start: 08-17-2024 End: 08-17-2024 Patient encounter procedure [facility] Comment on above: Arrived Start: 07-18-2024 End: 07-18-2025 ABO/Rh ABO/Rh Lab Routine Missed menses , unspecified gestational age Expected: 07/18/2024 (Approximate), Expires: 07/18/2025 [facility] Comment on above: Expected: 07/18/2024 [...] first trimester Expected: 07/18/2024 (Approximate), Expires: 07/18/2025 [facility] Comment on above: Expected: 07/18/2024 (Approximate), Expires: 07/18/2025 Start: 07-18-2024 End: 07-18-2025 US Pelvis transvaginal US OB transvaginal Imaging Routine Missed menses Expected: 07/18/2024 (Approximate), Expires: 07/18/2025 [facility] Comment on above: Expected: 07/18/2024 (Approximate), Expires: 07/18/2025 Start: 07-18-2024 End: 07-18-2024 ambulatory 07/18/2024 10:30 AM EST Initial [facility] [address] [place] [phone] [facility] Start: 07-18-2024 End: 07-18-2024 Professional / ancillary services management 07/18/2024 10:00 AM EST Ancillary Procedure [facility] [address] [place] [phone] [facility] Bacteria identified in Urine by Culture Urine culture Microbiology Routine Missed menses Ordered: 07/18/2024 [facility] Comment on above: Ordered: 07/18/2024 CBC W Auto Differential panel - Blood CBC and differential Lab Routine Missed menses , unspecified gestational age Ordered: 07/18/2024 [facility] Comment on above: Ordered: 07/18/2024 CHLAMYDIA TRACHOMATI S (GENITO/STI) CHLAMYDIA TRACHOMATIS (GENITO/STI) Lab Routine STD exposure Vaginal discharge Ordered: 09/21/2024 [facility] Comment on above: Ordered: 09/21/2024 Hemoglobin A1c/Hemoglobin.total in Blood Hemoglobin A1c Lab Routine Missed menses , unspecified gestational age Ordered: 07/18/2024 [facility] Comment on above: Ordered: 07/18/2024 Hepatitis B virus surface Ag [Presence] in Serum or Plasma by Immunoassay Hepatitis B surface antigen Lab Routine Missed menses , unspecified gestational age Ordered: 07/18/2024 [facility] Comment on above: Ordered: 07/18/2024 Hepatitis C virus Ab [Presence] in Serum or Plasma by Immunoassay Hepatitis C antibody Lab Routine Missed menses , unspecified gestational age Ordered: 07/18/2024 [facility] Comment on above: Ordered: 07/18/2024 HIV-1/HIV-2 antigen/antibody combination immunoassay HIV-1 and HIV-2 antibodies Lab Routine Missed menses , unspecified gestational age Ordered: 07/18/2024 [facility] Comment on above: Ordered: 07/18/2024 Neisseria gonorrhoea e DNA [Presence] in Unspecified specimen by ISAURO with probe detection Neisseria gonorrhea DNA probe, direct Lab Routine STD exposure Vaginal discharge Ordered: 09/21/2024 [facility] Comment on above: Ordered: 09/21/2024 Reagin Ab [Presence] in Serum by RPR RPR Lab Routine Missed menses , unspecified gestational age Ordered: 07/18/2024 [facility] Comment on above: Ordered: 07/18/2024 Rubella antibody, IgG Rubella an tibody, IgG Lab Routine Missed menses , unspecified gestational age Ordered: 07/18/2024 [facility] Comment on above: Ordered: 07/18/2024 SURESWAB(R) ADVANCED VAGINITIS PLUS, TMA SURESWAB(R) ADVANCED VAGINITIS PLUS, TMA Pathology and Cytology Routine STD exposure Vaginal discharge Ordered: 09/21/2024 [facility] Work Phone: Comment on above: Ordered: 09/21/2024 Immunizations Immunization Date Immunization Notes Care Provider Chase sequeira 03-17-2021 Human Papillomavirus 9-valent vaccine Almaz Deanna Other [facility] Other 02-10-2021 Do not use COVID-19 Pfizer 2 dose Almaz Deanna Other [facility] Other 08-04-2016 Human Papillomavirus 9-valent vaccine Almaz Deanna Other [facility] Other 05-22-2016 Human Papillomavirus 9-valent vaccine Almaz Deanna Other [facility] Other 07-29-2015 hepatitis A vaccine, pediatric/adolescent dosage, 2 dose schedule Almaz Deanna Other [facility] Other 04-02-2007 hepatitis A vaccine, pediatric/adolescent dosage, 2 dose schedule Almaz Deanna Other [facility] Other 04-14-2005 diphtheria, tetanus toxoids and acellular pertussis vaccine, 5 pertussis antigens Almaz Deanna Other [facility] Other 10-09-2004 measles, mumps and rubella virus vaccine Almaz Deanna Other [facility] Other 04-21-2004 DTaP-hepatitis B and poliovirus vaccine Almaz Deanna Other [facility] Other 04-21-2004 haemophilus influenz ae type b vaccine, PRP-T conjugate Almaz Deanna Other [facility] Other 02-19-2004 DTaP-hepatitis B and poliovirus vaccine Almaz Deanna Other [facility] Other 02-19-2004 haemophilus influenz ae type b vaccine, PRP-T conjugate Almaz Deanna Other [facility] Other 2003 DTaP-hepatitis B and poliovirus vaccine Almaz Deanna Other [facility] Other 2003 haemophilus influenz ae type b vaccine, PRP-T conjugate Almaz Deanna Other [facility] Other 2003 hepatitis B vaccine, pediatric or pediatric/adolescent dosage Almaz Deanna Other [facility] Other Payers Date Payer Category Payer Self-pay 2021 Private Health Insurance 2003 Unknown [id number] 2003 Unknown [id number] 2003 Unknown [id number] 0.1.187705.3.579.2.1259 2003 Unknown [id number] 2.16.84 0.1.249804.3.579.2.1259 2003 Unknown [id number] 2.16.84 0.1.980571.3.579.2.1259 2003 Unknown [id number] 2.16.84 0.1.724616.3.579.2.9 2003 Unknown [id number] 2.16.84 0.1.657327.3.579.2.1259 2003 Unknown [id number] 2.16.84 0.1.306147.3.579.2.9 2003 Unknown [id number] 2.16.84 0.1.543934.3.579.2.1258 2003 Unknown [id number] 2.16.84 0.1.795277.3.579.2.9 2003 Unknown [id number] 2.16.84 0.1.284069.3.579.2.1259 2003 Unknown [id number] 2.16.84 0.1.736310.3.579.2.1259 1959 Unknown [id number] 1959 Unknown [id number] 1959 Unknown [id number] 2.16.84 0.1.588991.3.579.2.593 Unknown [id number] 2.16.8 40.1.007143.3.579.2.531 Social History Date Type Detail Facility Unknown if ever smoked [facility] Other Sex Assigned At [facility] Other Tobacco smoking status MNIS Tobacco smoking consumption unknown [facility] Start: 2005 Sex assigned at Not on file [facility] Start: 06-10-2024 [facility] Clinical Notes 01-21-2022 to 01-11-2025 JANETH Ji - 01/11/2025 1:30 PM EDDevendra Nellybirdie, MANAGER OF ADMINISTRATION - 12/28/2024 9:50 AM Luca Gunter NP - 12/06/2024 1:20 PM EDRae Ednadavide, MANAGER OF ADMINISTRATION - 11/15/2024 10:50 AM EDT Note Date [...] of: JANETH Ji documented in this encounter [facility] 12-28-2024 History of Presen t illness [...] nursing note reviewed. Exam conducted with a transition specialist present. Vitals: There is no height or [...] Yogesh Canales DO documented in this encounter [facility] 12-06-2024 History of Presen t illness [...] nursing note reviewed. Exam conducted with a transition specialist present. Vitals: There is no height or [...] Lynette Gunter NP documented in this encounter [facility] 11-15-2024 History of Presen t illness [...] nursing note reviewed. Exam conducted with a transition specialist present. Vitals: There is no height or [...] Yogesh Canales DO documented in this encounter [facility] 10-18-2024 History of Presen t illness [...] of: JANETH Ji documented in this encounter [facility] 09-21-2024 History of Presen t illness [...] without difficulty and patient was given [facility] order to have obtained. Orders Placed [...] of: JANETH Ji documented in this encounter [facility] 08-17-2024 History of Presen t illness [...] nursing note reviewed. Exam conducted with a transition specialist present. Vitals: There is no height or [...] undercooked meat, and stay away from [facility]. Patient has been consulted regarding any [...] Yogesh Canales DO documented in this encounter [facility] 07-18-2024 History of Presen t illness [...] undercooked meat, and stay away from [facility]. Patient has also been advised to [...] Jazmyne Oliveira MA documented in this encounter [facility] 09-17-2023 Evaluation note Encounter Date Diagnosis [...] understanding and is agreeable to treatment plan. [facility] Other 01-25-2024 Evaluation note* Encounter Date Diagnosis [...] and no personal patient information was compromised. [facility] Other 12-19-2023 Evaluation note* Encounter Date Diagnosis [...] (ICD-10 - F32.1) See above treatment plan. [facility] Other 06-15-2022 Evaluation note* Encounter Date Diagnosis Assessment Notes Treatment Notes Treatment Clinical Notes Jan, Pre-employment examination (ICD-10 - Z02.1) [facility] Other Evaluation note* Diagnosis Missed menses , [...] Reported* Type Description Date Medical History vertigo [facility] Other Reason for referral (narrative)* Reason Refer to Sylwia berg or counseling for anxiety and depression Diagnosis 1 MATTHIAS (generalized anx iety disorder) (F41.1) Referral Organization [facility] Carolyne Wick Referring Provider First Name Sheree Referring Provider Last Name Jonatan Referring Provider Specialty Nurse Bree grullon Referred Provider Specialty Psychiatry Referral Priority Routine [facility] Other Summary Purpose Family History No Family [...] content) DATE CREATED AUTHOR 04/10/2022 [facility] DATE CREATED AUTHOR AUTHOR'S ORGANIZ ATION 08/13/2023 [facility] DATE CREATED AUTHOR AUTHOR'S ORGANIZ ATION 08/09/2024 [facility] DATE CREATED AUTHOR AUTHOR'S ORGANIZ ATION 01/12/2025 [facility] EPIC Care Teams (unrecognized sec tion and content) 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 Relationship Specialty Start Date End Date Hazel Grady MD [address] [place] [address] PCP - General Family Medicine 07/18/24 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 Relationship Specialty Start Date End Date Hazel Grady MD [facility] [place] [address] PCP - General Family Medicine 07/18/24 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 Relationship Specialty Start Date End Date Hazel Grady MD [address] [place] [address] PCP - General Family Medicine 07/18/24 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 Relationship Specialty Start Date End Date Hazel Grady MD [address] [place] [address] PCP - General Family Medicine 07/18/24 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 Relationship Specialty Start Date End Date Hazel Grady MD [address] [place] [address] PCP - General Family Medicine 07/18/24 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 Relationship Specialty Start Date End Date Hazel Grady MD [address] [place] [address] PCP - General Family Medicine 07/18/24 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 Relationship Specialty Start Date End Date Hazel Grady MD [address] [place] [address] PCP - General Family Medicine 07/18/24 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 Relationship Specialty Start Date End Date Hazel Grady MD [address] [place] [address] PCP - General Family Medicine 07/18/24 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 [facility]. provides no warranty or guarantee of the accuracy or completeness of information in this document.
[2025-01-20 10:09] VITALS: BP 134/62; PULSE 96
== END 2025-01-20 10:35 | disposition home or self-care (01) ==
LOC: FBCO 10:01 → FBC 10:03
PROVIDERS: PCP Family Medicine; Visit Provider Obstetrics & Gynecology
DX: O41.00X0 Oligohydramnios, unspecified trimester, not applicable or unspecified (principal)
CPT/HCPCS: 59025

== ENCOUNTER 2025-01-24 09:54 | Outpatient (OUT) | payer OTHER, SELFPAY ==
--- OUTSIDE RECORDS SUMMARY | 2016-05-22 10:00 | XMS_ITS | Continuity of Care Document ---
Author Organization [employer] [facility] Address [address] [facility] [place] [address] Phone Care Team Providers Care Handle Machine Operator Name Role Phone Floyd WANG, Selvin Unavailable Unavailable Allergies, Adverse Reactions, Alerts Substance Reaction Status Criticality No Known Allergies Active No Inform ation Medications Medication Instructions Dosage Effective Dates (start - stop) Status Comments spinosad 0.9 % topical suspension apply 30 - 120 milliliter by topical route onceand after 10 minutes rinse thoughily - Active Procedures Procedure Date IMMUNIZATION ADMIN HPVTYPBIval 9 IMMUNIZATION ADMIN, EACH ADD MENINGOCOCCAL VACCINE, IM Immunization Administration Immunization Administration PURE TONE HEARING TEST, AIR CAPILLARY BLOOD DRAW HEMOGLOBIN Immunization Administration TDAP VACCINE >7 IM Immunization Administration, Each Additi onal Comp HEP A VACC, PED/ADOL, 2 DOSE PREV VISIT, NEW, AGE 5-11 VISUAL FIELD EXAMINATION(S) Advance Directives Directive Yes / No Effective Date File Name No Information Encounters Encounter Description Practice Location Reason(s) For Visit Diagnoses Date Provider Providers Copied on Encounter [facility], [address] [facility] [address], [place], [place], [id number], [place] tel:[phone] [facility] vaccine adm. (chief complaint) No Information 6 Floyd Montalvo. [address] [address], [place], [place], [address], [place]. tel:[phone] Referring Provider: Selvin Bell, [address] [address], [place], [address] . tel:[phone] [facility], [address] [place] [address] [address], [place], [place], [address], [place] tel:[phone] [facility] No Information 6 No Information [facility], [address] [place] [address] [address], [place], [place], [address], [place] tel:[phone] [facility] No Information 5 Floyd Montalvo. [address] [address], [place], [place], [address], [place]. tel:[phone] PREV VISIT, NEW, AGE 5-11 [facility], [address] [place] [address] [address], [place], [place], [address], [place] tel:[phone] [facility] Well child (chief complaint) Encntr for routine child health exam w/o abnormal findings 5 Ahmet Snyder. [address], [address], [place]. tel:[phone] Referring Provider: Lillian Leo MD, [address], [address]. tel:[phone] Family History Family Member Type Diagnosis Age At Onset No Information Immunizations Vaccine Date Status Comments meningococcal MCV4P administered Source: New Immunization Record HPV (9-valent) administered Source: New I mmunization Record Hep A (ped/adol, 2 dose) administered Rama rce: New Immunization Record Tdap administered Source: New Imm unization Record varicella virus vaccine administered Sour ce: Other Registry poliovirus vaccine, inactivated administe red Source: Other Registry measles, mumps and rubella virus vaccine administered Source: Other Regist ry Hep A (ped/adol, 2 dose) administered Rama rce: Other Registry pneumococcal conjugate vacci ne, 13 valent administered Source: Other Regist ry Haemophilus influenzae type b vaccine, conjugate unspecified formulation administered Source: Other Regist ry diphtheria, tetanus toxoids and acellular pertussis vaccine administered Source: Othe r Registry Varicella administered Source: Other R egistry MMR administered Source: Other R egistry poliovirus vaccine, inactivated administe red Source: Other Registry pneumococcal conjugate vacci ne, 13 valent administered Source: Other Regist ry Haemophilus influenzae type b vaccine, conjugate unspecified formulation administered Source: Other Regist ry hepatitis B vaccine, pediatr ic or pediatric/adolescent dosage administered Source: O ther Registry diphtheria, tetanus toxoids and acellular pertussis vaccine administered Source: [facility] Registry poliovirus vaccine, inactivated administe red Source: Other Registry pneumococcal conjugate vacci ne, 13 valent administered Source: Other Regist ry Haemophilus influenzae type b vaccine, conjugate unspecified formulation administered Source: Other Regist ry hepatitis B vaccine, pediatr ic or pediatric/adolescent dosage administered Source: [facility] ther Registry diphtheria, tetanus toxoids and acellular pertussis vaccine administered Source: [facility] Registry poliovirus vaccine, inactivated administe red Source: Other Registry Prevnar administered Source: Other R egistry Haemophilus influenzae type b vaccine, conjugate unspecified formulation administered Source: Other Regist ry hepatitis B vaccine, pediatr ic or pediatric/adolescent dosage administered Source: O ther Registry diphtheria, tetanus toxoids and acellular pertussis vaccine administered Source: [facility] r Registry hepatitis B vaccine, pediatr ic or pediatric/adolescent dosage administered Source: O ther Registry Payers Payer name Insurance type Covered libertarian ID Authoriza tion(s) Medicaid MC [id number] Medicaid [place] [id number] Medicaid [place] [id number] [facility] [id number] Social History Type Description Quantity Date Captured Comments Alcohol Use Details Unknown Caffeine Use Details Unknown Tobacco Use Status No Information Smoking Status No Information Sex Female Chief Complaint And Reason For Visit From encounter dated '05/22/2016 14:00'. vaccine adm. (chief complaint). Description: given Menactra and HPV Reason For Referral Reason For Referral No Information Plan Of Treatment Date Type Action Status Patient Education Child's Well Visit, 9 t o 11 Years: Car completed History Of Present Illness Encounter Date Complaint History Of Prese nt Illness vaccine adm. given Menactra a nd HPV Well child (comments) new foster placement last Wednesday. Previously lived with maternal grandmother. Mom and dad recently ; kids witnessed fighting bewteen parents. Well child Functional Status Date Functional Assessmen t No Information Instructions Date Instruction Additional Infor mation vaaccines givenfoste r care papers doneannual well visits Related to Encntr for routine child health exam w/o abnormal findings Oral Health Discussed (- yea rs) Related to Encntr for routine child health exam w/o abnormal findings Age appropriate safe ty discussed (11-14 years) Related to Encntr for routine child health exam w/o abnormal findings Age appropriate diet discussed (-14 years) Related to Encntr for routine child health exam w/o abnormal findings Age appropriate anti cipatory guidance discussed (-14 years) Related to Encntr for routine child health exam w/o abnormal findings Assessments Type Assessment Date No Information Patient Care Teams Name Effective Dates (start - stop) Status Members No Information
--- OUTSIDE RECORDS SUMMARY | 2023-08-23 10:15 | XMS_ITS ---
Author Organization [facility] Address [address] [place] [address] Care Team Providers Care Emerging Solutions Executive Name Role Phone Amanda Wilson Primary Care Provider REASON FOR VISIT NEW PT REFERRAL FROM [facility] Encounters Encounter Location Date Provider Diagnosis [facility] [address] [place] [address] 08/23/2023 Amanda Wilson Plan Of Treatment No Information Progress Notes * YUMIKO DOEEDOB: [birth year] (19 yo F)Acc No.[id number]:08/23/2023 Consult - Patient Patient: JIMBO PICHARDO Provider: JOSEPH Dumont :2005 A ge:17 Y S ex:Female Date:08/23/2023 Address:[facility] [address], [place], [id number] Subjective: * Chief Complaints: * 1 . NEW PT REFERRAL FROM [facility]. Objective: Therapeutic Interventions: Assessment: Plan: * Images: Care Plan Details* * Electronic signature of JOSEPH Sheikh on 01/24/2025 at 09:56 AM EDT Sign off status: Pending * Provider: JOSEPH Dumont Date: 08/23/2023 Generated for Jessyi ng/Faxing/eTransmitting on: 0 01/24/2025 09:57 AM EDT
--- OUTSIDE RECORDS SUMMARY | 2025-01-11 13:30 | XMS_ITS | Encounter Summary ---
Author Organization [facility] Address [address] [facility] [place] [address] Care Team Providers Care Clay Washer Name Role Phone David Awan MD Primary Care Provider [phone] Reason for Visit * Reason Comments Routine Visit Encounter Details Date Type Department Care Team (Late st Contact Info) Description 01/11/2025 1:30 PM EDT Routine [facility] B[facility] OB [address] [place] [address] Maryanne Whiteside PA [address] [facility] [address] [address] [place], [place] [address] Third trimester ([facility]); 32 weeks gestation of ([facility]); Pruritus Social History Tobacco Use Types Packs/Day [...] AM EDT Routine [facility] BCP OB [address] [facility] [place] [address] Cb Canales, [address] [facility] [place] [address] Scheduled Orders Name Type Priority Associated Diagnoses [...] disorder documented in this encounter Care Teams Clay Washer Relationship Specialty Start Date End Date David Awan MD [address] [place] [address] PCP - General Family Medicine 07/18/24 documented as of this encounter
--- NOTE | 2025-01-24 | US_ITS ---
[place] [id number] Patient Name: JIMBO DOE MRN: [id number] date: 2005 Sex: F Assigned Patient Location: [facility] Current Patient Location: [facility] Accession/Order Number: [id number] Exam Date: 01/24/2025 10:33 Report Date: 01/24/2025 10:38 At the request of: YOGESH CALI DO Procedure: US OB BPP w non-stress BIOPHYSICAL PROFILE: CLINICAL INFORMATION: OLIGOHYDRAMINOS O 41.03X1 COMPARISON: 01/17/2025 There is a single live intrauterine gestation in cephalic presentation. The reported gestational age is 34 weeks 4 days. The heart rate measures 153 beats per minute. FINDINGS: TONE: 1 or more episodes of activity extension and flexion of extremity or opening and closing of the hand [Y] 2/2 GROSS BODY MOVEMENTS: 3 or more discrete body or limb movements [Y] 2/2 BREATHING MOVEMENTS: 1 or more episodes of breathing lasting at least 30 seconds [Y] 2/2 JEROD: A single deepest vertical pocket of amniotic fluid greater than 2 cm [Y] 2/2 JEROD: 6.5 cm . The 2.5th percentile is 7.1 cm. Total score: 8/8 US/ OB BPP w non-stress IMPRESSION: NORMAL BIOPHYSICAL PROFILE. OLIGOHYDRAMNIOS. Impression dictated by: Aparna Nascimento M.D. 01/24/2025 10:38 AM Dictation Location: [place] [address] Electronically authenticated by: [id number] Y Date: 01/24/2025 10:38
--- OUTSIDE RECORDS SUMMARY | 2025-01-24 09:57 | XMS_ITS | Encounter Summary ---
Author Organization [facility] Address [address] [place] [address] Care Team Providers Care Operative Supervisor Name Role Phone David Awan MD Primary Care Provider [phone] Encounter Details Date Type Department Care Team (Late st Contact Info) Description 01/11/2025 Clinisync Result Encounter [facility] External Department Unsolicited Maryanne Whiteside PA [address] [facility] [address] [place], [facility]11 Social History Tobacco Use Types Packs/Day Years [...] AM EDT Routine [facility] [address] [facility] [place] [phone] Cb Canales, [address] [place] [address] documented as of this encounter Procedures Procedure [...] BLD (01/11/2025 2:14 PM EDT) Pathologist [facility] BILE ACIDS 1.6 0.0 - 10.0 umol/L TB Comment: Performed at: [address] [id number] Supervisor Finishing Department: Mac Chawla MD, Phone: [phone] 01/11/2025 2:14 PM EDT 01/11/2025 2:18 PM EDT Narrative CLIN[facility]NC - 01/12/2025 3:09 PM EDT Maryanne HER Final Result Performing Organization Address [facility] de Phone Number [facility] * ALL HEPATITIS C AB (01/11/2025 2:14 PM EDT) Pathologist [facility] HCV ANTIBODY Non Reactive Non Reactive [facility] Comment: HCV antibody alone does not differentiate between previously resolved infection and active infection. Equivocal and Reactive HCV antibody results should be followed up with an HCV RNA test to support the diagnosis of active HCV infection. Performed at: [facility] [address] [id number] Supervisor Finishing Department: Porter Kamara PhD, Phone: [phone] 01/11/2025 2:14 PM EDT 01/11/2025 2:18 PM EDT Narrative CLINISYNC - 01/12/2025 5:07 AM EDT Maryanne HER Final Result Performing Organization Address [facility]/ZIP Co de Phone Number [facility] TB * ALL THYROID STIM HORMONE (01/11/2025 2:14 PM EDT) THYROID STIMULATING HORMONE 0.457 0.358 - 3.740 uIU/mL [facility] 01/11/2025 2:14 PM EDT 01/11/2025 2:18 PM EDT Narrative CLIN[facility] - 01/11/2025 3:18 PM EDT Maryanne CALDERAISYODALIS Final Result Performing Organization Address [facility] Co de Phone Number CLINISYSD TB * (ABNORMAL) [facility] LIVER PANEL (01/11/2025 2:14 PM EDT) BILIRUBIN [...] Maryanne HER Final Result Performing Organization Address [facility]/ZIP Co de Phone Number [facility] TB * [...] on filedocumented in this encounter Care Teams Operative Supervisor Relationship Specialty Start Date End Date David Awan MD [address] [place] [address] PCP - General Family Medicine 07/18/24 documented as of this encounter
--- OUTSIDE RECORDS SUMMARY | 2025-01-24 09:57 | XMS_ITS | Patient Health Record ---
Author Organization [employer] [facility] [facility] [facility] Address [address] [place] [address] Care Team Providers Care Printer Maintainer Name Role Phone Amanda Wilson Primary Care Provider Reason For Referral No Information Plan Of Treatment No Information Insurance Providers Payer Name Payer Address Payer Phone Subscriber Number Group Number Insured Name Patient Relationship to Insured Coverage Start Date Coverage End Date [facility] [address] [address] [place] [address] [phone] [id number] JIMBO DOE Self - patient is the insured 3
--- OUTSIDE RECORDS SUMMARY | 2025-01-24 09:57 | XMS_ITS | Encounter Summary ---
Author Organization [facility] Address [address] [place] [address] Care Team Providers Care Live Hanger Name Role Phone David Awan MD Primary Care Provider Encounter Details Date Type Department Care Team (Late st Contact Info) Description 08/08/2024 Abstract [facility] BCP OB [address] [place] [phone] Cb Canales DO [facility] [place], [id number] Social History Tobacco Use Types Packs/Day Years [...] [facility] BCP OB [address] [place] [phone] Cb Canales DO [facility] [address] [place], [place] [id number] documented as of this encounter Visit Diagnoses Not on filedocumented in this encounter Care Teams Live Hanger Relationship Specialty Start Date End Date David Awan MD [address] [place] [address] PCP - General Family Medicine 07/18/24 documented as of this encounter
--- OUTSIDE RECORDS SUMMARY | 2025-01-24 09:57 | XMS_ITS | Encounter Summary ---
Author Organization [facility] Address [address] [place] [address] Care Team Providers Care Utility Lineman Name Role Phone David Awan MD Primary Care Provider [phone] Encounter Details Date Type Department Care Team (Late st Contact Info) Description 01/18/2025 External Result Encounter [facility] OB [address] [place] [address] Yogesh Canales DO [address] [place], [facility]11 Social History Tobacco Use Types Packs/Day Years [...] Routine [facility] BCP OB [address] [place] [address] Yogesh Canales DO [address] [place], [place] [id number] documented as of this encounter Procedures Procedure Name Priority Date/Time Associated Diagnosis Comments US OB 14+ WEEKS ANATOMY SCAN 01/18/2025 10:30 AM EDT documented in this encounter Results * US OB 14+ weeks anatomy scan (01/18/2025 10:30 AM EDT) Anatomical Region Laterality Modality Body Ultrasound 01/18/2025 10:3 0 AM EDT Narrative 01/18/2025 10:30 AM EDT THIS EXAM WAS PERFORMED AT [facility] NAME: BROOK CHOI : 2005 SEX: F Accession Number: [id number] ORDERING PHYSICIAN: YOGESH CANALES REFERRING PHYSICIAN: YOGESH CANALES Coding ----- --------- Procedures 63881: Ultrasound, uterus, real time with image documentation, [...] EFW (oz) 14 oz EFW by: Hadlock ([id number]) Extended Tibia 56.1 mm 32w 6d 45% Tj Magnetic Prospecting Operator 2.0 mm Head / Face / Neck [...] Heart / Thorax RVOT view. LVOT view. 3-pzlgrk-auemnfv view. Aortic arch view. Bicaval view. Ductal [...] 01/18/2025 THIS EXAM WAS PERFORMED AT [facility] NAME: BROOK CHOI : 2005 SEX: F Accession Number: [id number] ORDERING PHYSICIAN: YOGESH CANALES REFERRING PHYSICIAN: YOGESH CANALES Coding ----- --------- Procedures 39670: Ultrasound, uterus, real time with imagedocumentation, and [...] EFW (oz) 14 oz EFW by: Hadlock ([id number]) Extended Tibia 56.1 mm 32w 6d 45% Tj Magnetic Prospecting Operator 2.0 mm Head / Face / Neck [...] Heart / Thorax RVOT view. LVOT view. 6-nkhxzh-lgaodhk view. Aortic archview. Bicaval view. Ductal arch [...] on filedocumented in this encounter Care Teams Utility Lineman Relationship Specialty Start Date End Date David Awan MD [address] [place] [address] PCP - General Family Medicine 07/18/24 documented as of this encounter
--- OUTSIDE RECORDS SUMMARY | 2025-01-24 09:57 | XMS_ITS | Encounter Summary ---
Author Organization [facility] Address [address] [place] [address] Care Team Providers Care Operations Technician Name Role Phone Hazel Grady MD Primary Care Provider [phone] Encounter Details Date Type Department Care Team (Late st Contact Info) Description 01/17/2025 Clinisync Result Encounter [facility] External Department Unsolicited Yogesh Canales, DO [address] [place] [address] Social History Tobacco Use Types Packs/Day Years [...] Routine [facility] BCP OB [address] [place] [address] Yogesh Canales DO [address] [place] [address] documented as of this encounter Procedures Procedure Name Priority Date/Time Associated Diagnosis Comments US OB BPP W NON-STRESS 01/17/2025 10:51 AM EDT documented in this encounter Results * US OB BPP W NON-STRESS (01/17/2025 10:51 AM EDT) Anatomical Region Laterality Modality Other 01/17/2025 10:5 1 AM EDT Narrative 01/17/2025 10:54 [place] [address] Ultrasound Report Signed Patient: JIMBO DOE MR#: [id number] : 2005 Acct:[id number] Age/Sex: 19 / F ADM Date: 01/17/25 Loc: [facility] 254-[address]: Yogesh Canales D.O. Ordering Physician: Yogesh Canales D.O. Date of Service: 01/17/25 Procedure(s): US OB BPP w non-stress Accession Number(s): [id number] cc: Yogesh Canales D.O.; HAZEL GRADY [place] [address] Patient Name: JIMBO DOE MRN: [id number] date: 2005 Sex: F Assigned Patient Location: [facility] Current Patient Location: [facility] Accession/Order Number: [id number] Exam Date: 01/17/2025 10:50 Report Date: 01/17/2025 10:51 At the request of: YOGESH CANALES DO Procedure: US OB BPP w non-stress BIOPHYSICAL PROFILE: CLINICAL INFORMATION: oligohydramnios COMPARISON: 01/10/2025 There is a single live intrauterine gestation in cephalic presentation. The reported gestational age is 33 weeks 4 days. The heart rate beats [...] Nascimento M.D. 01/17/2025 10:51 AM Dictation Location: [place] [address] Electronically authenticated by: [id number] Y Date: 01/17/2025 10:51 Dictated By: Aparna Nascimento M.D. Signed By: 01/17/25 1054 DD/ 1051 TD/TT: Mold Preparer: Procedure Note Radiology, Radiologist, MD - 01/17/2025 [place] [address] Ultrasound Report Signed Patient: JIMBO DOE RMR#: [id number] : 2005Acct:[id number] Age/Sex: 19 / FADM Date: 01/17/25 Loc: [facility] 254-[address]: Yogesh Canales D.O. Ordering Physician: Yogesh Canales D.O. Date of Service: 01/17/25 Procedure(s): US OB BPP w non-stress Accession Number(s): [id number] cc: Yogesh Canales D.O.; HAZEL GRADY [place] [address] Patient Name: JIMBO DOE MRN: [facility]:[id number] date: 2005 Sex: F Assigned Patient Location: [facility] Current Patient Location: [facility] Accession/Order Number: [id number] Exam Date: 01/17/2025 10:50 Report Date: 01/17/2025 10:51 At the request of: YOGESH CANALES DO Procedure: US OB BPP w non-stress BIOPHYSICAL PROFILE: CLINICAL INFORMATION: oligohydramnios COMPARISON: 01/10/2025 There is a single live intrauterine gestation in cephalic presentation.The reported gestational age is 33 weeks 4 days. The heart [id number] beats per minute. FINDINGS: TONE: 1 or [...] Nascimento M.D. 01/17/2025 10:51 AM Dictation Location: [place] [address] Electronically authenticated by: [id number] Y Date: 0:51 Dictated By: Aparna Nascimento M.D. Signed By:01/17/25 1054 DD/ 1051 TD/TT: Mold Preparer: [facility] Ally DO [facility] IMAGING Final Result documented in this encounter Visit Diagnoses Not on filedocumented in this encounter Care Teams Operations Technician Relationship Specialty Start Date End Date Hazel Grady MD [address] [place] [address] PCP - General Family Medicine 07/18/24 documented as of this encounter
--- OUTSIDE RECORDS SUMMARY | 2025-01-24 09:57 | XMS_ITS | Encounter Summary ---
Author Organization [facility] [employer] [facility] tem Address [id number] [address] [place] [address] Care Team Providers Care Sap Analyst Name Role Phone Unavailable Primary Care Provider Unavailabl e Encounter Details Date Type Department Care Team (Late st Contact Info) Description 01/04/2025 Orders Only Maternal- Medicine at [facility] [address] [place] [phone] Ref Prov, [place] [address] Social History Tobacco Use Types Packs/Day Years [...] 10:58 AM EDT) Anatomical Region Laterality Modality OB-SUPPLY CHAIN SYSTEMS MANAGER Ultrasound us Not In System Ref Prov IMG US ORDERABLES Final R esult * Ultrasound limited 1 or more fetus (01/04/2025 10:56 AM EDT) Anatomical Region Laterality Modality OB-SUPPLY CHAIN SYSTEMS MANAGER Ultrasound us Not In System Ref Prov IMG US ORDERABLES Final R esult * Ultrasound limited 1 or more fetus (01/04/2025 10:55 AM EDT) Anatomical Region Laterality Modality OB-SUPPLY CHAIN SYSTEMS MANAGER Ultrasound us Not In System Ref Prov IMG US ORDERABLES Final R esult * Ultrasound limited 1 or more fetus (01/04/2025 10:54 AM EDT) Anatomical Region Laterality Modality OB-SUPPLY CHAIN SYSTEMS MANAGER Ultrasound us Not In System Ref Prov IMG US ORDERABLES Final R esult * Ultrasound limited 1 or more fetus (01/04/2025 10:51 AM EDT) Anatomical Region Laterality Modality OB-SUPPLY CHAIN SYSTEMS MANAGER Ultrasound us Not In System Ref Prov IMG US ORDERABLES Final R esult documented in this encounter Visit Diagnoses Not on filedocumented in this encounter
--- OUTSIDE RECORDS SUMMARY | 2025-01-24 09:57 | XMS_ITS | Encounter Summary ---
Author Organization [facility] [employer] [facility] tem Address [id number] [address] [place] [address] Care Team Providers Care Adjunct Faculty For Medical Terminology Name Role Phone Unavailable Primary Care Provider Unavailabl e Encounter Details Date Type Department Care Team (Late st Contact Info) Description 01/04/2025 Abstract Maternal- Medicine at [facility] [address] [place] [phone] Mike Lay MD [address] [facility] [address] [place] [address] Social History Tobacco Use Types Packs/Day Years [...] ORDERABLES [place] Result Performing Organization Address City/[facility] Co de Phone Number MANUALLY TRANSCRIBED RESULTS * Rubella IGG immune status (08/05/2024) Rubella immune IgG immune MANUALLY TRANSCRIBED RESULTS Blood Venous blood / Unknown us Not In System Ref Prov LAB BLOOD ORDERABLES Jessica l Result Performing Organization Address City/[facility] Co de Phone Number MANUALLY TRANSCRIBED RESULTS * Syphilis Total (Unknown Syphilis Status) (08/05/2024) Syphilis non reactive MANUALL Y TRANSCRIBED RESULTS Blood Venous blood / Unknown us Not In System Ref Prov LAB BLOOD ORDERABLES Jessica l Result MANUALLY TRANSCRIBED RESULTS documented in this encounter Visit Diagnoses Not on filedocumented in this encounter
--- OUTSIDE RECORDS SUMMARY | 2025-01-24 09:57 | XMS_ITS | Encounter Summary ---
Author Organization [facility] Address [address] [place] [address] Care Team Providers Care Guest Relations Manager Name Role Phone David Awan MD Primary Care Provider [phone] Encounter Details Date Type Department Care Team (Late st Contact Info) Description 01/18/2025 Abstract [facility] BCP OB [address] [place] [address] Zita Jade MA Social History Tobacco [...] Routine [facility] BCP OB [address] [place] [address] Cb Canales DO [address] [place], [facility] documented as of this encounter Visit Diagnoses Not on filedocumented in this encounter Care Teams Guest Relations Manager Relationship Specialty Start Date End Date David Awan MD [address] [place] [id number] PCP - General Family Medicine 07/18/24 documented as of this encounter
--- OUTSIDE RECORDS SUMMARY | 2025-01-24 09:57 | XMS_ITS | Encounter Summary ---
Author Organization [facility] Address [address] [place] [address] Care Team Providers Care Web Production Assistant Name Role Phone Hazel Grady MD Primary Care Provider [phone] Encounter Details Date Type Department Care Team (Late st Contact Info) Description 07/19/2024 Clinisync Result Encounter [facility] External Department Unsolicited Yogesh Canales, DO [address] [place] [address] Social History Tobacco Use Types Packs/Day Years [...] Routine [facility] BCP OB [address] [place] [id number] Yogesh Canales DO [address] [place] [address] documented as of this encounter Procedures Procedure Name Priority Date/Time Associated Diagnosis Comments US OB TRANSVAGINAL 07/19/2024 4: 28 AM EST documented in this encounter Results * US OB TRANSVAGINAL (07/19/2024 4:28 AM EST) Anatomical Region Laterality Modality Other 07/19/2024 4:28 AM EST Narrative 07/19/2024 4:31 [place] [address] Ultrasound Report Signed Patient: JIMBO DOE MR#: [id number] : 2005 Acct:[id number] Age/Sex: 18 / F ADM Date: 07/18/24 Loc: [facility] Attending Dr: Yogesh Canales D.O. Ordering Physician: Yogesh Canales D.O. Date of Service: 07/18/24 Procedure(s): US OB transvaginal Accession Number(s): [id number] cc: Yogesh Canales D.O.; HAZEL GRADY [place] [address] Patient Name: JIMBO DOE MRN: [id number] date: 2005 Sex: F Assigned Patient Location: [facility] Current Patient Location: Accession/Order Number: [id number] Exam Date: 07/18/2024 10:06 Report Date: 07/19/2024 [...] Signed By: 07/19/24 0431 DD/ 0428 TD/TT: Clay Grinder: Procedure Note Radiology, Radiologist, - 07/19/2024 [place] [address] Ultrasound Report Signed Patient: JIMBO DOE RMR#: [id number] : 2005Acct:[id number] Age/Sex: 18 / FADM Date: 07/18/24 Loc: [facility] Attending Dr: Yogesh Canales D.O. Ordering Physician: Yogesh Canales D.O. Date of Service: 07/18/24 Procedure(s): US OB transvaginal Accession Number(s): [id number] cc: Yogesh Canales D.O.; HAZEL GRADY [place] [address] Patient Name: JIMBO DOE MRN: [id number] date: 2005 Sex: F Assigned Patient Location: [facility] Current Patient Location: Accession/Order Number: [id number] Exam Date: 07/18/2024 10:06 Report Date: 07/19/2024 [...] Salbador Sofia M.D. Signed By:07/19/241 DD/ TD/TT: Clay Grinder: us Yogesh Canales DO [facility] Final Result documented in this encounter Visit Diagnoses Not on filedocumented in this encounter Care Teams Web Production Assistant Relationship Specialty Start Date End Date Hazel Grady MD [address] [place] [address] PCP - General Family Medicine 07/18/24 documented as of this encounter
--- OUTSIDE RECORDS SUMMARY | 2025-01-24 09:57 | XMS_ITS | Encounter Summary ---
Author Organization [facility] Address [address] [place] [address] Care Team Providers Care Dental Assistant Teacher Name Role Phone Hazel Grday MD Primary Care Provider [phone] Encounter Details Date Type Department Care Team (Late st Contact Info) Description 01/10/2025 Clinisync Result Encounter [facility] External Department Unsolicited Yogesh Canales, DO [address] [place] [address] Social History Tobacco Use Types Packs/Day Years [...] [facility] BCP OB [address] [place] [phone] Yogesh Canales DO [address] [place] [address] documented as of this encounter Procedures Procedure Name Priority Date/Time Associated Diagnosis Comments US OB BPP W NON-STRESS 01/10/2025 10:44 AM EDT documented in this encounter Results * US OB BPP W NON-STRESS (01/10/2025 10:44 AM EDT) Anatomical Region Laterality Modality Other 01/10/2025 10:4 4 AM EDT Narrative 01/10/2025 10:47 [place] [address] Ultrasound Report Signed Patient: JIMBO DOE MR#: [id number] : 2005 Acct:[id number] Age/Sex: 19 / F ADM Date: 01/10/25 Loc: [facility] 250-[address]: Yogesh Canales D.O. Ordering Physician: Yogesh Canales D.O. Date of Service: 01/10/25 Procedure(s): US OB BPP w non-stress Accession Number(s): [id number] cc: Yogesh Canales D.O.; HAZEL GRADY [place] [address] Patient Name: JIMBO DOE MRN: [id number] date: 2005 Sex: F Assigned Patient Location: [facility] Current Patient Location: [facility] Accession/Order Number: [id number] Exam Date: 01/10/2025 10:39 Report Date: 01/10/2025 10:44 At the request of: YOGESH CANALES DO Procedure: US OB BPP w non-stress BIOPHYSICAL PROFILE: CLINICAL INFORMATION: OLIGOHYDRAMNIOS O41.09X1 COMPARISON: 01/03/2025 There is a single live intrauterine gestation in cephalic presentation. The reported gestational age is 32 weeks 4 days. The heart rate [id number] beats per minute. FINDINGS: TONE: 1 or [...] Nascimento M.D. 01/10/2025 10:44 AM Dictation Location: [place] [address] Electronically authenticated by: [id number] Y Date: 01/10/2025 10:44 Dictated By: Aparna Nascimento M.D. Signed By: 01/10/25 1047 DD/ 1044 TD/TT: Wardrobe Specialty Worker: Procedure Note Radiology, Radiologist, - 01/10/2025 [place] [address] Ultrasound Report Signed Patient: JIMBO DOE RMR#: [id number] : 2005Acct:[id number] Age/Sex: 19 / FADM Date: 01/10/25 Loc: [facility] 250-[address]: Yogesh Canales D.O. Ordering Physician: Yogesh Canales D.O. Date of Service: 01/10/25 Procedure(s): US OB BPP w non-stress Accession Number(s): [id number] cc: Yogesh Canales D.O.; HAZEL GRADY [facility] [place] [id number] Patient Name: JIMBO DOE MRN: [id number] date: 2005 Sex: F Assigned Patient Location: [facility] Current Patient Location: [facility] Accession/Order Number: [id number] Exam Date: 01/10/2025 10:39 Report Date: 01/10/2025 10:44 At the request of: YOGESH CANALES DO Procedure: US OB BPP w non-stress BIOPHYSICAL PROFILE: CLINICAL INFORMATION: OLIGOHYDRAMNIOS O41.09X1 COMPARISON: 01/03/2025 There is a single live intrauterine gestation in cephalic presentation.The reported gestational age is 32 weeks 4 days. The heart [id number] beats per minute. FINDINGS: TONE: 1 or [...] Nascimento M.D. 01/10/2025 10:44 AM Dictation Location: [place] [address] Electronically authenticated by: [id number] Y Date: 0:44 Dictated By: Aparna Nascimento M.D. Signed By:01/10/25 1047 DD/ 1044 TD/TT: Wardrobe Specialty Worker: us Yogesh Ally DO [facility] Final Result documented in this encounter Visit Diagnoses Not on filedocumented in this encounter Care Teams Dental Assistant Teacher Relationship Specialty Start Date End Date Hazel Grady MD [address] [place] [address] PCP - General Family Medicine 07/18/24 documented as of this encounter
--- OUTSIDE RECORDS SUMMARY | 2025-01-24 09:57 | XMS_ITS | Encounter Summary ---
Author Organization [facility] Address [address] [place] [address] Care Team Providers Care Hand Lacer Name Role Phone David Awan MD Primary Care Provider Encounter Details Date Type Department Care Team (Late st Contact Info) Description 01/11/2025 Bamboo flowsheet [facility] BCP OB [address] [facility] [place] [address] Maryanne Whiteside PA [address] [place] [address] [address] [place], [facility] Social History Tobacco Use Types Packs/Day [...] AM EDT Routine [facility] [address] [facility] [place] [address] Cb Canales DO [address] [facility] [address] [place], [facility] documented as of this encounter Visit Diagnoses Not on filedocumented in this encounter Care Teams Hand Lacer Relationship Specialty Start Date End Date David Awan MD [address] [place] [address] PCP - General Family Medicine 07/18/24 documented as of this encounter
--- OUTSIDE RECORDS SUMMARY | 2025-01-24 09:57 | XMS_ITS | Encounter Summary ---
Author Organization [facility] Address [address] [place] [address] Care Team Providers Care Voice Professor Name Role Phone David Awan MD Primary Care Provider Encounter Details Date Type Department Care Team (Late st Contact Info) Description 07/18/2024 Abstract [facility] BCP OB [address] [place] [phone] Cb Canales DO [facility] [address], [facility] Social History Tobacco Use Types Packs/Day [...] [facility] BCP OB [address] [place] [phone] Cb Canales DO [facility] [address] [place], [place] [id number] documented as of this encounter Visit Diagnoses Not on filedocumented in this encounter Care Teams Voice Professor Relationship Specialty Start Date End Date David Awan MD [address] [place] [address] PCP - General Family Medicine 07/18/24 documented as of this encounter
--- OUTSIDE RECORDS SUMMARY | 2025-01-24 09:57 | XMS_ITS | Clinical Summary ---
Author Organization [facility] Healthcare Address [address] [place] [address] Care Team Providers Care Demolition Specialist Name Role Phone Hazel Grady MD Primary Care Provider [phone] Allergies Active Allergy Reactions Criticality Noted Date Comments Amoxicillin Rash Low 2003 Medications sertraline (Zoloft) 50 MG tablet Take 50 mg by mouth at bedtime 04/05/2024 Active promethazine (Phenergan) 12.5 MG tabletIndicatio ns: headache, antepartum ([facility]) Take 1 tablet (12.5 mg) by mouth [...] Encounters Date Type Department Care Team Description 01/18/2025 Abstract [facility] OB [address] [place] [address] Zita Jade MA 01/18/2025 External Result Encounter [facility] [address] [place] [id number] Yogesh Canales DO 01/17/2025 Clinisync Result Encounter [facility] External Department Unsolicited Yogesh Canales, DO 01/11/2025 1:30 PM EDT Routine [facility] [address] [place] [address] Maryanne Whiteside PA Third trimester ([facility]); 32 weeks gestation of ([facility]); Pruritus 01/11/2025 Clinisync Result Encounter [facility] External Department Unsolicited Maryanne Whiteside PA 01/11/2025 Bamboo flowsheet [facility] [address] [place] [address] Maryanne Whiteside PA 01/10/2025 Clinisync Result Encounter [facility]S External Department Unsolicited Yogesh Canales, DO 01/06/2025 Clinisync Result Encounter [facility] External Department Unsolicited Cony Canalesy, DO 01/03/2025 Clinisync Result Encounter [facility] External Department Unsolicited Yogesh Canales, DO 12/28/2024 9:50 AM EDT Routine [facility] [address] [place] [address] Yogesh Canales, DO 30 weeks gestation of ([facility]); Third trimester ([facility]); Oligohydramnios in third trimester, fetus 1 of multiple gestation ([facility]) 12/28/2024 9:00 AM EDT Ancillary Procedure [facility] [address] [place] [address] size inconsistent with dates ([facility]) 12/16/2024 Clinisync Result Encounter [facility] External Department Unsolicited Yogesh Canales, DO 12/15/2024 Clinisync Result Encounter NOMS External Department Unsolicited Yogesh Canales, DO 12/06/2024 1:20 PM EDT Routine [facility] [address] [place] [address] Lynette Gunter NP size inconsistent with dates ([facility]) (Primary Dx); 27 weeks gestation of ([facility]); Second trimester ([facility]) 12/06/2024 Travel 12/06/2024 Bamboo flowsheet [facility] OB [address] [place] [address] [place] [address] Lynette Gunter NP 11/30/2024 Clinisync Result Encounter [facility] External Department Unsolicited Yogesh Canales DO 11/15/2024 10:50 AM EDT Routine [facility] [place] [address] [place] [address] Yogesh Canales DO 24 weeks gestation of ([facility]); Second trimester ([facility]); Diabetes mellitus screening 11/15/2024 10:00 AM EDT Ancillary Procedure [facility] [place] [address] [place] [address] Encounter for follow-up ultrasound of anatomy ([facility]) 11/01/2024 Telephone [facility] [place] [address] [place] [address] Yogesh Canales DO from Last 3 Months Social History Tobacco [...] Description 01/25/2025 8:40 AM EDT Routine [facility] OB [facility] [place] [address] Yogesh Canales DO [address] [place], [place] [address] Procedures Procedure Name Priority Date/Time Associated Diagnosis Comments US OB 14+ WEEKS ANATOMY SCAN 01/18/2025 10:30 AM EDT US OB BPP W NON-STRESS 01/17/2025 10:51 AM EDT [facility] BILE ACIDS FRACT BLD Routine 01/11/2025 2:14 PM EDT ALL HEPATITIS C AB Routine 01/11/2025 2: 14 PM EDT ALL THYROID STIM HORMONE Routine 01/11/2025 2:14 PM EDT HMHP LIVER PANEL Routine 01/11/2025 2:14 PM EDT ALL CBC WITH AUTO DIFF Routine 2:14 PM EDT US OB BPP W NON-STRESS 01/10/2025 10:44 AM EDT AMNISURE Routine 01/06/2025 11:15 AM EDT US OB BPP W NON-STRESS 01/03/2025 10:43 AM EDT POCT URINALYSIS DIPSTICK Routine 12/28/2024 10:23 AM EDT 30 weeks gestation of ([facility]) US OB FOLLOW UP TRANSABDOMINAL APPROACH Routine 12/28/2024 9:43 AM EDT size inconsistent with dates ([facility]) [facility]H URINE T PROTEIN CREAT RATIO Routine 12/16/2024 1:30 PM EDT [facility] LIPASE Routine 12/16/2024 12:41 PM EDT ALL AMYLASE Routine 12/16/2024 12:41 PM EDT [facility] CMP (CMP) (FOR REMOTE [facility] USE) Routine 12/16/2024 12:41 PM EDT ALL CBC WITH AUTO DIFF Routine 12:41 PM EDT ALL URIC ACID Routine 12/16/2024 12:30 AM EDT CCF LIPASE Routine 12/16/2024 12:30 AM EDT ALL AMYLASE Routine 12/16/2024 12:30 AM EDT [facility] CMP (CMP) (FOR REMOTE [facility] USE) Routine 12/16/2024 12:30 AM EDT ALL CBC WITH AUTO DIFF Routine 12:30 AM EDT TBH URINE MICROSCOPIC ONLY Routine 12/15/2024 11:00 PM EDT TBH UA (CLEAN/CATCH) NON ACOUSTIC OPERATOR/MICRO IF IND. Routine 12/15/2024 11:00 PM EDT POCT URINALYSIS DIPSTICK Routine 12/06/2024 1:28 PM EDT 27 weeks gestation of ([facility]) Second trimester ([facility]) GLUCOSE 1 HOUR Routine 11/30/2024 2:12 PM EDT ALL CBC WITH AUTO DIFF Routine 2:12 PM EDT POCT URINALYSIS DIPSTICK Routine 11/15/2024 10:42 AM EDT 24 weeks gestation of ([facility]) Second trimester ([facility]) US OB LIMITED 1+ FETUSES Routine 11/15/2024 10:24 AM EDT Encounter for follow-up ultrasound of anatomy ([facility]) from Last 3 Months Results * US OB 14+ weeks anatomy scan (01/18/2025 10:30 AM EDT) Anatomical Region Laterality Modality Body Ultrasound 01/18/2025 10:3 0 AM EDT Narrative 01/18/2025 10:30 AM EDT THIS EXAM WAS PERFORMED AT [facility] NAME: BROOK CHOI : 2005 SEX: F Accession Number: [id number] ORDERING PHYSICIAN: YOGESH CANALES REFERRING PHYSICIAN: YOGESH CANALES Coding ----- --------- Procedures [id number]: Ultrasound, uterus, real time with image documentation, [...] EFW (oz) 14 oz EFW by: Hadlock ([id number]) Extended Tibia 56.1 mm 32w 6d 45% Tj Keg Washer 2.0 mm Head / Face / Neck [...] Heart / Thorax RVOT view. LVOT view. 4-pxzghz-zegnpev view. Aortic arch view. Bicaval view. Ductal [...] the patient as necessary. Procedure Note Radiology, Radiologist, - 01/18/2025 THIS EXAM WAS PERFORMED AT [facility] NAME: BROOK CHOI : 2005 SEX: F Accession Number: [id number] ORDERING PHYSICIAN: YOGESH CANALES REFERRING PHYSICIAN: YOGESH CANALES Coding ----- --------- Procedures [id number]: Ultrasound, uterus, real time with imagedocumentation, and [...] EFW (oz) 14 oz EFW by: Hadlock ([id number]-FL) Extended Tibia 56.1 mm 32w 6d 45% Tj Keg Washer 2.0 mm Head / Face / Neck [...] Heart / Thorax RVOT view. LVOT view. 1-thjstb-fwpztxx view. Aortic archview. Bicaval view. Ductal arch [...] up with thepatient as necessary. us Yogesh Canales DO IMG OB US PROCEDURES Final Resul t * US OB BPP W NON-STRESS (01/17/2025 10:51 AM EDT) Only the most recent of3 resultswithin the time period is included. Anatomical Region Laterality Modality Other 01/17/2025 10:5 1 AM EDT Narrative 01/17/2025 10:54 AM EDT [address] [address] Ultrasound Report Signed Patient: FRANCES DOE MR#: [id number] : 2005 Acct:[id number] Age/Sex: 19 / F ADM Date: 01/17/25 Loc: [facility] 254-[address]: Yogesh Canales D.O. Ordering Physician: Yogesh Canales D.O. Date of Service: 01/17/25 Procedure(s): US OB BPP w non-stress Accession Number(s): [id number] cc: Yogesh Canales D.O.; HAZEL GRADY [place] [address] Patient Name: FRANCES DOE MRN: [id number] date: 2005 Sex: F Assigned Patient Location: [facility] Current Patient Location: [facility] Accession/Order Number: [id number] Exam Date: 01/17/2025 10:50 Report Date: 01/17/2025 [...] Nascimento M.D. 01/17/2025 10:51 AM Dictation Location: [place] [address] Electronically authenticated by: [id number] Y Date: 01/17/2025 10:51 Dictated By: Aparna Nascimento M.D. Signed By: 01/17/25 1054 DD/ 1051 TD/TT: Paperhanger Pipe: Procedure Note Radiology, Radiologist, - 01/17/2025 [place] [address] Ultrasound Report Signed Patient: FRANCES DOE RMR#: [id number] : 2005Acct:[id number] Age/Sex: 19 / FADM Date: 01/17/25 Loc: [facility] 254-[address]: Yogesh Canales D.O. Ordering Physician: Yogesh Canales D.O. Date of Service: 01/17/25 Procedure(s): US OB BPP w non-stress Accession Number(s): [id number] cc: Yogesh Canales D.O.; HAZEL GRADY [place] [address] Patient Name: FRANCES DOE MRN: [facility]:[id number] date: 2005 Sex: F Assigned Patient Location: [facility] Current Patient Location: [facility] Accession/Order Number: [id number] Exam Date: 01/17/2025 10:50 Report Date: 01/17/2025 10:51 At the request of: YOGESH CANALES DO Procedure: US OB BPP w non-stress BIOPHYSICAL PROFILE: CLINICAL INFORMATION: oligohydramnios COMPARISON: 01/10/2025 There is a single live intrauterine gestation in cephalic presentation.The reported gestational age is 33 weeks 4 days. The heart [id number] beats per minute. FINDINGS: TONE: 1 or [...] low-normal range (5th percentile 8.2cm). Total score: 8/8 US/US OB BPP w non-stress IMPRESSION: NORMAL BIOPHYSICAL PROFILE. Impression dictated by: Aparna Nascimento M.D. 01/17/2025 10:51 AM Dictation Location: [place] [address] Electronically authenticated by: [id number] Y Date: 0:51 Dictated By: Aparna Nascimento M.D. Signed By:01/17/25 1054 DD/ 1051 TD/TT: Paperhanger Pipe: Yogesh Ally DO CLINISYNC IMAGING Final Result * (ABNORMAL) [facility] LIVER PANEL (01/11/2025 2:14 PM EDT) Pathologist [facility] BILIRUBIN TOTAL 0.2 0.2 - 1.0 mg/dL [...] CLINISYNC - 01/11/2025 3:18 PM EDT Maryanne FOWLER CLINISYODALIS Final Result Performing Organization Address City/[facility]/ZIP Co de Phone Number [facility] * [facility] BILE ACIDS FRACT BLD (01/11/2025 2:14 PM EDT) [facility] BILE ACIDS 1.6 0.0 - 10.0 umol/L TBH Comment: Performed at: [address] [id number] Grooving Lathe Tender: Mac Chawla MD, Phone: [phone] 01/11/2025 2:14 PM EDT 01/11/2025 2:18 PM EDT Narrative CLINISYNC - 01/12/2025 3:09 PM EDT Maryanne CALDERAISYODALIS Final Result [facility] * ALL THYROID STIM HORMONE (01/11/2025 2:14 PM EDT) [facility] THYROID STIMULATING HORMONE 0.457 0.358 - 3.740 uIU/mL TB 01/11/2025 2:14 PM EDT 01/11/2025 2:18 PM EDT Narrative CLINISYNC - 01/11/2025 3:18 PM EDT Maryanne HER Final Result Performing Organization Address [facility] de Phone Number [facility] * ALL HEPATITIS C AB (01/11/2025 2:14 PM EDT) [facility] HCV ANTIBODY Non Reactive Non Reactive [facility] Comment: HCV antibody alone does not differentiate between previously resolved infection and active infection. Equivocal and Reactive HCV antibody results should be followed up with an HCV RNA test to support the diagnosis of active HCV infection. Performed at: [address] [id number] Grooving Lathe Tender: Porter Kamara PhD, Phone: [phone] 01/11/2025 2:14 PM EDT 01/11/2025 2:18 PM EDT Narrative CLINISYWY - 01/12/2025 5:07 AM EDT us Maryanne HER Final Result Performing Organization Address [facility] de Phone Number [facility] * (ABNORMAL) ALL CBC WITH AUTO DIFF (01/11/2025 2:14 PM EDT) Only the most recent of4 resultswithin the time period is included. [facility] WBC 9.8 4.0 - 11.0 10 3/uL [...] Narrative CLINISYNC - 01/11/2025 2:27 PM EDT us Maryanne CALDERAISYNC Final Result Performing Organization Address City/State/[facility] Co de Phone Number CLINISYNC TB * AMNISURE (01/06/2025 11:15 AM EDT) Pathologist [facility] AMNISURE NEGATIVE NEGATIVE TBH 01/06/2025 11:1 5 AM EDT 01/06/2025 11:29 AM EDT Narrative CLINISYNC - 01/06/2025 11:41 AM EDT Yogesh Canales DO LAB BLOOD ORDERABLES Final Resul t Performing Organization Address City/State/[facility] Co de Phone Number CLIN[facility]NC [facility]H * (ABNORMAL) POCT urinalysis dipstick manually resulted (12/28/2024 10:23 AM EDT) Only the most recent of3 resultswithin the time period is included. Color, [...] II, MD, PHD at 29-Dec-2024 12:17:39 PM [facility] Procedure Note Dorothy Duckworth MD - [...] signed by DOROTHY DUCKWORTH II, MD, PHD [id number] 12:17:39 PM [facility] us Lynette Lyric SEWING MACHINE OPERATOR IMG OB US PROCEDURES Final Re sult [...] Narrative CLINISYNC - 12/16/2024 1:22 PM EDT [facility] Ally DO CLINISYNC Final Result CLINISYNC TB * (ABNORMAL) [facility] CMP (CMP) (FOR REMOTE [facility]1983 USE) (12/16/2024 12:41 PM EDT) Only the [...] 0.55 - 1.02 mg/dL TBH TBH EGFR-AF SENEGALESE >60 >=60 mL/min/1. 73m 2 TBH TBH EGFR-NON AF SENEGALESE >60 >=60 mL/min/1. 73m 2 TBH BUN [...] DO CLINISYNC Final Result Performing Organization Address [facility] Co de Phone Number [facility] * ALL AMYLASE (12/16/2024 12:41 PM EDT) Only the most recent of2 resultswithin the time period is included. AMYLASE 36 25 - 115 U/L TB 12/16/2024 12:4 1 PM EDT 12/16/2024 12:44 PM EDT Narrative CLINISYNC - 12/16/2024 1:22 PM EDT Yogesh Ally DO CLINISYNC Final Result Performing Organization Address City/[facility] Co de Phone Number [facility] * ALL URIC ACID (12/16/2024 12:30 AM EDT) URIC ACID 3.2 2.6 - 6.0 mg/dL TB 12/16/2024 12:3 0 AM EDT 12/16/2024 1:30 AM EDT Narrative CLINISYNC - 12/16/2024 1:37 AM EDT Yogesh Ally DO CLINISYNC Final Result Performing Organization Address [facility] de Phone Number [facility]IN[facility]NC TB[facility] * (ABNORMAL) [...] Narrative CLINISYNC - 12/15/2024 11:[address] [facility] Ally DO WERNERISYNC Final Result Performing Organization Address [facility] Phone Number CLINIKENC TB[facility] * (ABNORMAL) TBH UA (CLEAN/CATCH) NON ACOUSTIC OPERATOR/MICRO IF IND. (12/15/2024 11:00 PM EDT) COLOR [...] DO CLINISYNC Final Result Performing Organization Address City/[facility]/ZIP Co de Phone Number [facility] * GLUCOSE 1 HOUR (11/30/2024 2:12 PM EDT) GLUCOSE 1 HOUR 96 <130 mg/dL TBH 11/30/2024 2:12 PM EDT 11/30/2024 2:14 PM EDT Narrative CLINISYNC - 11/30/2024 3:11 PM EDT us Yogesh Ally DO LAB BLOOD ORDERABLES Final Resul t Performing Organization Address [facility] Co de Phone Number [facility] * US OB limited 1+ fetuses (11/15/2024 [...] II, MD, PHD at 17-Nov-2024 06:24:10 AM [facility] Procedure Note Dorothy Duckworth MD - [...] signed by DOROTHY DUCKWORTH II, MD, PHD [id number] 06:24:10 AM [facility] us Yogesh Canales DO IMG OB US PROCEDURES Final Resul t from Last 3 Months Insurance Care Teams Demolition Specialist Relationship Specialty Start Date End Date Hazel Grady MD [address] [place] [address] PCP - General Family Medicine 07/18/24
--- OUTSIDE RECORDS SUMMARY | 2025-01-24 09:57 | XMS_ITS | Clinical Summary ---
Author Organization [facility] tem Address [facility]-[id number] [address] [place] [address] Care Team Providers Care Geoscience Professor Name Role Phone Unavailable Primary Care Provider [...] Description 01/04/2025 Orders Only Maternal- Medicine at [facility] [address] [place] [phone] Ref Prov, Not In System 01/04/2025 Abstract Maternal- Medicine at [facility] [address] [place] [address] Mike Lay MD from Last 3 Months [...] 9:32 AM EDT) Anatomical Region Laterality Modality OB-WAIST FITTER Ultrasound 01/18/2025 8:21 AM EDT Narrative 01/18/2025 10:30 AM EDT NAME: BROOK CHOI : 2005 SEX: F Accession Number: [id number] ORDERING PHYSICIAN: YOGESH CANALES REFERRING PHYSICIAN: YOGESH CANALES Coding ----- --------- Procedures [id number]: Ultrasound, uterus, real time with image documentation, [...] EFW (oz) 14 oz EFW by: Hadlock ([id number]) Extended Tibia 56.1 mm 32w 6d 45% Tj Lithographic Proofer 2.0 mm Head / Face / Neck [...] Heart / Thorax RVOT view. LVOT view. 9-dusviz-rfglhjf view. Aortic arch view. Bicaval view. Ductal [...] CHOI : 2005 SEX: F Accession Number: [id number] ORDERING PHYSICIAN: YOGESH CANALES REFERRING PHYSICIAN: YOGESH CANALES Coding ----- --------- Procedures [id number]: Ultrasound, uterus, real time with imagedocumentation, and [...] of AF: normal amount. MVP 4.5 cm. JERDO 8.4 cm. Q12.1 cm, Q2 4.5 cm, [...] EFW (oz) 14 oz EFW by: Hadlock ([id number]-FL) Extended Tibia 56.1 mm 32w 6d 45% Tj Lithographic Proofer 2.0 mm Head / Face / Neck [...] Heart / Thorax RVOT view. LVOT view. 4-hkbkpz-ssznzth view. Aortic archview. Bicaval view. Ductal arch [...] as necessary. us Yogesh Canales DO IMG US ORDERABLES Final Result * Ultrasound limited 1 or more fetus (01/04/2025 10:58 AM EDT) Only the most recent of5 resultswithin the time period is included. Anatomical Region Laterality Modality OB-WAIST FITTER Ultrasound us Not In System Ref Prov IMG US ORDERABLES Final R esult * CBC without diff (11/30/2024) Hemoglobin 11.2 MANUALLY TRANSCRIBED RESULTS Hematocrit 34.0 MANUALLY TRANSCRIBED RESULTS Rbc Mcv (Fl) By Automated Count 84.0 MANUALLY TRANSCRIBED RESULTS Blood Venous blood / Unknown us Not In System Ref Prov LAB BLOOD ORDERABLES Jessica l Result MANUALLY TRANSCRIBED RESULTS from Last 3 Months Insurance [facility] [place] [address]
[2025-01-24 10:19] VITALS: BP 133/84; PULSE 100
== END 2025-01-24 12:25 | disposition home or self-care (01) ==
LOC: US 09:55 → FBC 09:57
PROVIDERS: PCP Family Medicine; Visit Provider Obstetrics & Gynecology
DX: O41.03X1 Oligohydramnios, third trimester, fetus 1 (principal); Z3A.34 34 weeks gestation of pregnancy
CPT/HCPCS: 76818

== ENCOUNTER 2025-01-25 13:58 | Outpatient (OUT) | payer OTHER, SELFPAY ==
--- OUTSIDE RECORDS SUMMARY | 2016-05-22 10:00 | XMS_ITS | Continuity of Care Document ---
Author Organization [employer] [facility] Address [address] [facility] [place] [address] Phone Care Team Providers Care Mica Washer Gluer Name Role Phone Floyd WANG, Selvin Unavailable [...] Diagnoses Date Provider Providers Copied on Encounter [employer] [facility], [address] [facility] [address], [place], [place], [address], [place] tel:[phone] [facility] vaccine adm. (chief complaint) No Information 6 Floyd Montalvo. [address] [address], [place], [place], [address], [place]. tel:[phone] Referring Provider: Selvin Bell, [address] [address], [place], [address] . tel:[phone] [facility], [address] [place] [address] [address], [place], [place], [address], [place] tel:[phone] [facility] No Information 6 No Information [facility], [address] [place] [address] [address], [place], [place], [address], [place] tel:[phone] [facility] No Information 5 Floyd Montalvo. [address] [address], [place], [place], [address], [place]. tel:[phone] PREV VISIT, NEW, AGE 5-11 [facility], [address] [place] [address] [address], [place], [place], [address], [place] tel:[phone] [facility] Well child (chief complaint) Encntr for routine child health exam w/o abnormal findings 5 Ahmet Snyder. [address], [address], [place]. tel:[phone] Referring Provider: Lillian Leo MD, [address], [address]. tel:[phone] Family History Family Member Type Diagnosis Age [...] Covered republican ID Authoriza tion(s) Medicaid [place] [id number] Medicaid [place] [id number] Medicaid [place] [id number] [facility] [id number] Social History Type Description Quantity Date [...]
--- OUTSIDE RECORDS SUMMARY | 2023-08-23 10:15 | XMS_ITS ---
Author Organization [facility] Address [address] [place] [address] Care Team Providers Care Product Inspection Supervisor Name Role Phone Amanda Wilson Primary Care Provider [phone] REASON FOR VISIT NEW PT REFERRAL FROM [facility] Encounters Encounter Location Date Provider Diagnosis [facility] [address] [place] [address] 08/23/2023 Amanda Wilson Plan Of Treatment No Information Progress Notes * YUMIKO DOEEDOB: [birth year] (19 yo F)Acc No.[id number]:08/23/2023 Consult - Patient Patient: JIMBO PICHARDO Provider: JOSEPH Dumont :2005 A ge:17 Y S ex:Female Date:08/23/2023 Address:[address], [place], [id number] Subjective: * Chief Complaints: * 1 . NEW PT REFERRAL FROM [facility]. Objective: Therapeutic Interventions: Assessment: Plan: * Images: Care Plan Details* * Electronic signature of JOSEPH Sheikh on 01/25/2025 at 02:04 PM EDT Sign off status: Pending * Provider: JOSEPH Dumont Date: 08/23/2023 Generated for Jessyi ng/Faxing/eTransmitting on: 0 01/25/2025 02:04 PM EDT
--- OUTSIDE RECORDS SUMMARY | 2025-01-11 13:30 | XMS_ITS | Encounter Summary ---
Author Organization [facility] Address [address] [facility] [place] [address] Care Team Providers Care Conditioning Room Worker Name Role Phone David Awan MD Primary Care Provider [phone] Reason for Visit * Reason Comments Routine Visit Encounter Details Date Type Department Care Team (Late st Contact Info) Description 01/11/2025 1:30 PM EDT Routine [facility] B[facility] OB [address] [facility] [place] [address] Maryanne Whiteside PA [address] [place], [place] [address] Third trimester ([facility]); 32 weeks gestation of ([facility]); Pruritus Social History Tobacco Use Types Packs/Day [...] Care Team (Late st Contact Info) Description 02/01/2025 8:50 AM EDT Routine [facility] OB [address] [facility] [place] [address] Maryanne Whiteside PA [address] [place] [address] Scheduled Orders Name Type Priority Associated Diagnoses [...] this encounter Visit Diagnoses Diagnosis Third trimester ([facility]) state, incidental 32 weeks gestation of ([facility]) Pruritus Unspecified pruritic disorder documented in this encounter Care Teams Conditioning Room Worker Relationship Specialty Start Date End Date David Awan MD [address] [place] [address] PCP - General Family Medicine 07/18/24 documented as of this encounter
--- OUTSIDE RECORDS SUMMARY | 2025-01-25 08:40 | XMS_ITS | Encounter Summary ---
Author Organization [facility] Address [address] [place] [address] Care Team Providers Care Industrial Yard Brake Coupler Name Role Phone David Awan MD Primary Care Provider Reason for Visit * Reason Comments Routine Visit Encounter Details Date Type Department Care Team (Late st Contact Info) Description 01/25/2025 8:40 AM EDT Routine [facility] BCP OB [address] [phone] Cb Canales, DO [address] [place] [address] Third trimester ([facility]); 34 weeks gestation of ([facility]) Social History Tobacco Use Types Packs/Day Years [...] ASSESSMENT & PLAN ICD-10-CM 1. Third trimester ([facility]) Z34.93 POCT urinalysis dipstick manually resulted 2. 34 weeks gestation of ([facility]) Z3A.34 Return OB: Patient presents today for [...] AM EDT Routine [facility] BCP OB [address] [facility] [address] [place] [address] Maryanne Whiteside PA [address] [place] [address] documented as of this encounter Procedures Procedure Name Priority Date/Time Associated Diagnosis Comments POCT URINALYSIS DIPSTICK Routine 01/25/2025 9:22 AM EDT Third trimester ([facility]) documented in this encounter Results * POCT [...] - 9 Protein, UA Trace Negative - 1999(20) ++++ mg/dL Urobilinogen, UA 0.2 0.2 - 12 mg/dL Leukocytes, UA Moderate Negative - 500+++ Supa/mcL Nitrite, UA Negative Negative - Positive Urine 01/25/2025 9:22 AM EDT Cb Canales DO POINT OF CARE TEST ENTER/EDIT OR DERABLES Final Result documented in this encounter Visit Diagnoses Diagnosis Third trimester ([facility]) state, incidental 34 weeks gestation of ([facility]) documented in this encounter Care Teams Industrial Yard Brake Coupler Relationship Specialty Start Date End Date David Awan MD [address] [place] [address] PCP - General Family Medicine 07/18/24 documented as of this encounter
--- OUTSIDE RECORDS SUMMARY | 2025-01-25 14:03 | XMS_ITS | Encounter Summary ---
Author Organization [facility] Address [address] [place] [address] Care Team Providers Care Fish Culturist Name Role Phone David Awan MD Primary Care Provider Encounter Details Date Type Department Care Team (Late st Contact Info) Description 01/25/2025 Bamboo flowsheet [facility] BCP OB [address] [facility] [place] [address] Cb Canales DO [address] [facility] [address] [place], [facility] Social History Tobacco Use Types Packs/Day [...] AM EDT Routine [facility] BCP OB [address] [facility] [place] [address] Maryanne Whiteside PA [address] [facility] [address] [place], [place] [address] documented as of this encounter Visit Diagnoses Not on filedocumented in this encounter Care Teams Fish Culturist Relationship Specialty Start Date End Date Daivd Awan MD [address] [place] [address] PCP - General Family Medicine 07/18/24 documented as of this encounter
--- OUTSIDE RECORDS SUMMARY | 2025-01-25 14:04 | XMS_ITS | Encounter Summary ---
Author Organization [facility] Address [address] [place] [address] Care Team Providers Care Pathology Assistant Name Role Phone Hazel Grady MD Primary Care Provider [phone] Encounter Details Date Type Department Care Team (Late st Contact Info) Description 01/17/2025 Clinisync Result Encounter [facility] External Department Unsolicited Yogesh Canales DO [address] [facility] [address] [place], [place] [address] Social History Tobacco Use Types Packs/Day Years [...] AM EDT Routine [facility] [address] [place] [address] Maryanne Whiteside PA [address] [facility] [place] [address] documented as of this encounter Procedures Procedure Name Priority Date/Time Associated Diagnosis Comments US OB BPP W NON-STRESS 01/17/2025 10:51 AM EDT documented in this encounter Results * US OB BPP W NON-STRESS (01/17/2025 10:51 AM EDT) Anatomical Region Laterality Modality Other 01/17/2025 10:5 1 AM EDT Narrative 01/17/2025 10:54 [place] [address] Ultrasound Report Signed Patient: JIMBO DOE MR#: [id number] : 2005 Acct:[id number] Age/Sex: 19 / F ADM Date: 01/17/25 Loc: [facility] 254-[address]: Yogesh Canales D.O. Ordering Physician: Yogesh Canales D.O. Date of Service: 01/17/25 Procedure(s): US OB BPP w non-stress Accession Number(s): [id number] cc: Yogesh Canales D.O.; HAZEL GRADY [place] [address] Patient Name: JIMBO DOE MRN: [id number] date: 2005 Sex: F Assigned Patient Location: [facility] Current Patient Location: [facility] Accession/Order Number: [id number] Exam Date: 01/17/2025 10:50 Report Date: 01/17/2025 10:51 At the request of: YOGESH CANALES DO Procedure: US OB BPP w non-stress BIOPHYSICAL PROFILE: CLINICAL INFORMATION: oligohydramnios COMPARISON: 01/10/2025 There is a single live intrauterine gestation in cephalic presentation. The reported gestational age is 33 weeks 4 days. The heart rate [id number] beats per minute. FINDINGS: TONE: 1 or [...] Nascimento M.D. 01/17/2025 10:51 AM Dictation Location: [place] [address] Electronically authenticated by: [id number] Y Date: 01/17/2025 10:51 Dictated By: Aparna Nascimento M.D. Signed By: 01/17/25 1054 DD/ 1051 TD/TT: Care Advocate: Procedure Note Radiology, Radiologist, MD - 01/17/2025 [place] [address] Ultrasound Report Signed Patient: JIMBO DOE RMR#: [id number] : 2005Acct:[id number] Age/Sex: 19 / FADM Date: 01/17/25 Loc: [facility] 254-[address]: Yogesh Canales D.O. Ordering Physician: Yogesh Canales D.O. Date of Service: 01/17/25 Procedure(s): US OB BPP w non-stress Accession Number(s): [id number] cc: Yogesh Canales D.O.; HAZEL GRADY The [place] [address] Patient Name: JIMBO DOE MRN: [facility]:[id number] date: 2005 Sex: F Assigned Patient Location: [facility] Current Patient Location: [facility] Accession/Order Number: [id number] Exam Date: 01/17/2025 10:50 Report Date: 01/17/2025 10:51 At the request of: YOGESH CANALES DO Procedure: US OB BPP w non-stress BIOPHYSICAL PROFILE: CLINICAL INFORMATION: oligohydramnios COMPARISON: 01/10/2025 There is a single live intrauterine gestation in cephalic presentation.The reported gestational age is 33 weeks 4 days. The heart [id number] beats per minute. FINDINGS: TONE: 1 or [...] Nascimento M.D. 01/17/2025 10:51 AM Dictation Location: [place] [address] Electronically authenticated by: [id number] Y Date: 0:51 Dictated By: Aparna Nascimento M.D. Signed By:01/17/25 1054 DD/ 1051 TD/TT: Care Advocate: us Yogesh Ally DO [facility] Final Result documented in this encounter Visit Diagnoses Not on filedocumented in this encounter Care Teams Pathology Assistant Relationship Specialty Start Date End Date Hazel Grady MD [address] [place] [address] PCP - General Family Medicine 07/18/24 documented as of this encounter
--- OUTSIDE RECORDS SUMMARY | 2025-01-25 14:04 | XMS_ITS | Encounter Summary ---
Author Organization [facility] Address [address] [place] [address] Care Team Providers Care Russian Language Professor Name Role Phone Hazel Grady MD Primary Care Provider [phone] Encounter Details Date Type Department Care Team (Late st Contact Info) Description 01/24/2025 Clinisync Result Encounter [facility] External Department Unsolicited Yogesh Canales DO [address] [facility] [address] [place], [place] [address] Social History Tobacco Use Types Packs/Day Years [...] EDT Routine [facility] BCP OB [address] [place] [address] Maryanne Whiteside PA [address] [facility] [place] [address] documented as of this encounter Procedures Procedure Name Priority Date/Time Associated Diagnosis Comments US OB BPP W NON-STRESS 01/24/2025 10:38 AM EDT documented in this encounter Results * US OB BPP W NON-STRESS (01/24/2025 10:38 AM EDT) Anatomical Region Laterality Modality Other 01/24/2025 10:3 8 AM EDT Narrative 01/24/2025 10:41 [place] [address] Ultrasound Report Signed Patient: JIMBO DOE MR#: [id number] : 2005 Acct:[id number] Age/Sex: 19 / F ADM Date: 01/24/25 Loc: [facility] 250-[address]: Yogesh Canales D.O. Ordering Physician: Yogesh Canales D.O. Date of Service: 01/24/25 Procedure(s): US OB BPP w non-stress Accession Number(s): [id number] cc: Yogesh Canales D.O.; HAZEL GRADY [place] [id number] Patient Name: JIMBO DOE MRN: [id number] date: 2005 Sex: F Assigned Patient Location: [facility] Current Patient Location: [facility] Accession/Order Number: [id number] Exam Date: 01/24/2025 10:33 Report Date: 01/24/2025 10:38 At the request of: YOGESH CANALES DO Procedure: US OB BPP w non-stress BIOPHYSICAL PROFILE: CLINICAL INFORMATION: OLIGOHYDRAMINOS O 41.03X1 COMPARISON: 01/17/2025 There is a single live intrauterine gestation in cephalic presentation. The reported gestational age is 34 weeks 4 days. The heart rate measures 153 beats per minute. FINDINGS: TONE: 1 or [...] greater than 2 cm [Y] 2/2 JEROD: 6.5 cm . The 2.5th percentile is 7.1 cm. Total score: 8/8 US/US OB BPP w non-stress IMPRESSION: NORMAL BIOPHYSICAL PROFILE. OLIGOHYDRAMNIOS. Impression dictated by: Aparna Nascimento M.D. 01/24/2025 10:38 AM Dictation Location: [place] [address] Electronically authenticated by: [id number] Y Date: 01/24/2025 10:38 Dictated By: Aparna Nascimento M.D. Signed By: 01/24/25 1041 DD/ 1038 TD/TT: Neurodiagnostic Tech: Procedure Note Radiology, Radiologist, MD - 01/24/2025 [place] [address] Ultrasound Report Signed Patient: JIMBO DOE RMR#: [id number] : 2005Acct:[id number] Age/Sex: 19 / FADM Date: 01/24/25 Loc: [place] [address]- Attending Dr: Yogesh Canales D.O. Ordering Physician: Yogesh Canales D.O. Date of Service: 01/24/25 Procedure(s): US OB BPP w non-stress Accession Number(s): [id number] cc: Yogesh Canales D.O.; HAZEL GRADY The [place] [address] Patient Name: JIMBO DOE MRN: [facility]:[id number] date: 2005 Sex: F Assigned Patient Location: [facility] Current Patient Location: [facility] Accession/Order Number: [id number] Exam Date: 01/24/2025 10:33 Report Date: 01/24/2025 10:38 At the request of: YOGESH CANALES DO Procedure: US OB BPP w non-stress BIOPHYSICAL PROFILE: CLINICAL INFORMATION: OLIGOHYDRAMINOS O 41.03X1 COMPARISON: 01/17/2025 There is a single live intrauterine gestation in cephalic presentation.The reported gestational age is 34 weeks 4 days. The heart ratemeasures 153 beats per minute. FINDINGS: TONE: 1 or [...] greater than 2 cm [Y] 2/2 JEROD: 6.5 cm . The 2.5th percentile is 7.1 cm. Total score: 8/8 US/US OB BPP w non-stress IMPRESSION: NORMAL BIOPHYSICAL PROFILE. OLIGOHYDRAMNIOS. Impression dictated by: Aparna Nascimento M.D. 01/24/2025 10:38 AM Dictation Location: [place] [address] Electronically authenticated by: [id number] Y Date: 0:38 Dictated By: Aparna Nascimento M.D. Signed By:01/24/25 1041 DD/ 1038 TD/TT: Neurodiagnostic Tech: us Yogesh Ally DO [facility] Final Result documented in this encounter Visit Diagnoses Not on filedocumented in this encounter Care Teams Russian Language Professor Relationship Specialty Start Date End Date Hazel Grady MD [address] [place] [address] PCP - General Family Medicine 07/18/24 documented as of this encounter
--- OUTSIDE RECORDS SUMMARY | 2025-01-25 14:04 | XMS_ITS | Encounter Summary ---
Author Organization [facility] Address [address] [place] [address] Care Team Providers Care Liquid Yeast Supervisor Name Role Phone Hazel Grady MD Primary Care Provider [phone] Encounter Details Date Type Department Care Team (Late st Contact Info) Description 07/19/2024 Clinisync Result Encounter [facility] External Department Unsolicited Yogesh Canales DO [address] [place], [place] [address] Social History Tobacco Use Types Packs/Day Years [...] [address] [facility] [place] [address] Maryanne Whiteside PA [address] [facility] [place] [address] documented as of this encounter Procedures Procedure Name Priority Date/Time Associated Diagnosis Comments US OB TRANSVAGINAL 07/19/2024 4: 28 AM EST documented in this encounter Results * US OB TRANSVAGINAL (07/19/2024 4:28 AM EST) Anatomical Region Laterality Modality Other 07/19/2024 4:28 AM EST Narrative 07/19/2024 4:31 [place] [address] Ultrasound Report Signed Patient: JIMBO DOE MR#: [id number] : 2005 Acct:[id number] Age/Sex: 18 / F ADM Date: 07/18/24 Loc: [facility] Attending Dr: Yogesh Canales D.O. Ordering Physician: Yogesh Canales D.O. Date of Service: 07/18/24 Procedure(s): US OB transvaginal Accession Number(s): [id number] cc: Yogesh Canales D.O.; HAZEL GRADY The [place] [address] Patient Name: JIMBO DOE MRN: [id number] date: 2005 Sex: F Assigned Patient Location: [facility] Current Patient Location: Accession/Order Number: [id number] Exam Date: 07/18/2024 10:06 Report Date: 07/19/2024 [...] Signed By: 07/19/24 0431 DD/ 0428 TD/TT: Construction Electrician: Procedure Note Radiology, Radiologist, - 07/19/2024 [place] [address] Ultrasound Report Signed Patient: JIMBO DOE RMR#: [id number] : 2005Acct:[id number] Age/Sex: 18 / FADM Date: 07/18/24 Loc: [facility] Attending Dr: Yogesh Canales D.O. Ordering Physician: Yogesh Canales D.O. Date of Service: 07/18/24 Procedure(s): US OB transvaginal Accession Number(s): [id number] cc: Yogesh Canales D.O.; HAZEL GRADY The [place] [address] Patient Name: JIMBO DOE MRN: [id number] date: 2005 Sex: F Assigned [facility] Current Patient Location: Accession/Order Number: [id number] Exam Date: 07/18/2024 10:06 Report Date: 07/19/2024 [...] M.D. Signed By:07/19/24 0431 DD/ 0428 TD/TT: Construction Electrician: us Yogesh Canales DO [facility] Final Result documented in this encounter Visit Diagnoses Not on filedocumented in this encounter Care Teams Liquid Yeast Supervisor Relationship Specialty Start Date End Date Hazel Grady MD [address] [place] [address] PCP - General Family Medicine 07/18/24 documented as of this encounter
--- OUTSIDE RECORDS SUMMARY | 2025-01-25 14:04 | XMS_ITS | Encounter Summary ---
Author Organization [facility] [employer] [facility] tem Address [id number] [address] [place] [address] Care Team Providers Care Heddle Machine Operator Name Role Phone Unavailable Primary Care Provider Unavailabl e Encounter Details Date Type Department Care Team (Late st Contact Info) Description 01/04/2025 Orders Only Maternal- Medicine at [facility] [address] [place] [phone] Ref Prov, [place] [address] Social History Tobacco Use Types Packs/Day Years [...] 10:58 AM EDT) Anatomical Region Laterality Modality OB-WHITTLING ROOM OPERATOR Ultrasound us Not In System Ref Prov IMG US ORDERABLES Final R esult * Ultrasound limited 1 or more fetus (01/04/2025 10:56 AM EDT) Anatomical Region Laterality Modality OB-WHITTLING ROOM OPERATOR Ultrasound us Not In System Ref Prov IMG US ORDERABLES Final R esult * Ultrasound limited 1 or more fetus (01/04/2025 10:55 AM EDT) Anatomical Region Laterality Modality OB-WHITTLING ROOM OPERATOR Ultrasound us Not In System Ref Prov IMG US ORDERABLES Final R esult * Ultrasound limited 1 or more fetus (01/04/2025 10:54 AM EDT) Anatomical Region Laterality Modality OB-WHITTLING ROOM OPERATOR Ultrasound us Not In System Ref Prov IMG US ORDERABLES Final R esult * Ultrasound limited 1 or more fetus (01/04/2025 10:51 AM EDT) Anatomical Region Laterality Modality OB-WHITTLING ROOM OPERATOR Ultrasound us Not In System Ref Prov IMG US ORDERABLES Final R esult documented in this encounter Visit Diagnoses Not on filedocumented in this encounter
--- OUTSIDE RECORDS SUMMARY | 2025-01-25 14:04 | XMS_ITS | Clinical Summary ---
Author Organization [facility] Healthcare Address [address] [place] [address] Care Team Providers Care Program Supervisor Name Role Phone Hazel Grady MD Primary Care Provider [phone] Allergies Active Allergy Reactions Criticality Noted Date Comments Amoxicillin Rash Low 2003 Medications sertraline (Zoloft) 50 MG tablet Take 50 mg by mouth at bedtime 04/05/2024 Active promethazine (Phenergan) 12.5 MG tabletIndicatio ns: headache, antepartum ([facility]) Take 1 tablet (12.5 mg) by mouth [...] Encounters Date Type Department Care Team Description 01/25/2025 8:40 AM EDT Routine [facility] [address] [place] [address] Yogesh Canales DO Third trimester ([facility]); 34 weeks gestation of ([facility]) 01/25/2025 Bamboo flowsheet [facility] [address] [place] [address] Yogesh Canales DO 01/24/2025 Clinisync Result Encounter [facility] External Department Unsolicited Cony Canalesy, DO 01/18/2025 Abstract [facility] [address] [place] [address] Zita Jade MA 01/18/2025 External Result Encounter [facility] [address] [place] [address] Yogesh Canales, DO 01/17/2025 Clinisync Result Encounter [facility]OMS External Department Unsolicited Yogesh Canales, DO 01/11/2025 1:30 PM EDT Routine [facility] [address] [place] [address] Maryanne Whiteside PA Third trimester ([facility]); 32 weeks gestation of ([facility]); Pruritus 01/11/2025 Clinisync Result Encounter [facility] External Department Unsolicited Maryanne Whiteside PA 01/11/2025 Bamboo flowsheet [facility] [address] [place] [address] Maryanne Whiteside PA 01/10/2025 Clinisync Result Encounter [facility] External Department Unsolicited Yogesh Canales, DO 01/06/2025 Clinisync Result Encounter [facility] External Department Unsolicited Yogesh Canales, DO 01/03/2025 Clinisync Result Encounter [facility] External Department Unsolicited Yogesh Canales, DO 12/28/2024 9:50 AM EDT Routine [facility] [address] [place] [address] Yogesh Canales, DO 30 weeks gestation of ([facility]); Third trimester ([facility]); Oligohydramnios in third trimester, fetus 1 of multiple gestation ([facility]) 12/28/2024 9:00 AM EDT Ancillary Procedure [facility] [address] [place] [address] size inconsistent with dates ([facility]) 12/16/2024 Clinisync Result Encounter [facility] External Department Unsolicited Yogesh Canales, 12/15/2024 Clinisync Result Encounter [facility]OMS External Department Unsolicited Yogesh Canales, 12/06/2024 1:20 PM EDT Routine [facility] [address] [place] [address] Lynette Gunter, DEE DEE size inconsistent with dates ([facility]) (Primary Dx); 27 weeks gestation of ([facility]); Second trimester ([facility]) 12/06/2024 Travel 12/06/2024 Bamboo flowsheet [facility] [address] [place] [address] Lynette Gunter NP 11/30/2024 Clinisync Result Encounter [facility]OMS External Department Unsolicited Yogesh Canales, 11/15/2024 10:50 AM EDT Routine [facility] [address] [place] [address] Yogesh Canales, 24 weeks gestation of ([facility]); Second trimester ([facility]); Diabetes mellitus screening 11/15/2024 10:00 AM EDT Ancillary Procedure [facility] [address] [place] [address] Encounter for follow-up ultrasound of anatomy ([facility]) 11/01/[address] [facility] [address] [place] [address] Yogesh Canales DO from Last 3 Months [...] OB [address] [facility] [place] [address] Maryanne Whiteside PA [address] [facility] [place] [address] Procedures Procedure Name Priority Date/Time Associated Diagnosis Comments POCT URINALYSIS DIPSTICK Routine 01/25/2025 9:22 AM EDT Third trimester ([facility]) US OB BPP W NON-STRESS 01/24/2025 10:38 AM EDT US OB 14+ WEEKS ANATOMY SCAN 01/18/2025 [...] 10:23 AM EDT 30 weeks gestation of ([facility]) US OB FOLLOW UP TRANSABDOMINAL APPROACH Routine 12/28/2024 9:43 AM EDT size inconsistent with dates ([facility]) [facility] URINE T PROTEIN CREAT RATIO Routine [...] 12/15/2024 11:00 PM EDT [facility] UA (CLEAN/CATCH) RAILROAD DISPATCHER/MICRO IF IND. Routine 12/15/2024 11:00 PM EDT POCT URINALYSIS DIPSTICK Routine 12/06/2024 1:28 PM EDT 27 weeks gestation of ([facility]) Second trimester ([facility]) GLUCOSE 1 HOUR Routine 11/30/2024 2:12 PM EDT ALL CBC WITH AUTO DIFF Routine 2:12 PM EDT POCT URINALYSIS DIPSTICK Routine 11/15/2024 10:42 AM EDT 24 weeks gestation of ([facility]) Second trimester ([facility]) US OB LIMITED 1+ FETUSES Routine 11/15/2024 10:24 AM EDT Encounter for follow-up ultrasound of anatomy ([facility]) from Last 3 Months Results * POCT urinalysis dipstick manually resulted (01/25/2025 9:22 AM EDT) Only the most recent of4 [...] - Positive Urine 01/25/2025 9:22 AM EDT us Yogesh Cnaales DO POINT OF CARE TEST ENTER/EDIT OR DERABLES Final Result * US OB BPP W NON-STRESS (01/24/2025 10:38 AM EDT) Only the most recent of4 resultswithin the time period is included. Anatomical Region Laterality Modality Other 01/24/2025 10:3 8 AM EDT Narrative 01/24/2025 10:41 [place] [address] Ultrasound Report Signed Patient: FRANCES DOE MR#: [id number] : 2005 Acct:[id number] Age/Sex: 19 / F ADM Date: 01/24/25 Loc: [facility] 250-[address]: Yogesh Canales D.O. Ordering Physician: Yogesh Canales D.O. Date of Service: 01/24/25 Procedure(s): US OB BPP w non-stress Accession Number(s): [id number] cc: Yogesh Canales D.O.; HAZEL GRADY [place] [address] Patient Name: FRANCES DOE MRN: [facility]:[id number] date: 2005 Sex: F Assigned Patient Location: [facility] Current Patient Location: [facility] Accession/Order Number: [id number] Exam Date: 01/24/2025 10:33 Report Date: 01/24/2025 [...] Nascimento M.D. 01/24/2025 10:38 AM Dictation Location: [place] [address] Electronically authenticated by: [id number] Y Date: 01/24/2025 10:38 Dictated By: Aparna Nascimento M.D. Signed By: 01/24/25 1041 DD/ 1038 TD/TT: Industrial Service Technician: Procedure Note Radiology, Radiologist, MD - 01/24/2025 [place] [address] Ultrasound Report Signed Patient: FRANCES DOE RMR#: [id number] : 2005Acct:[id number] Age/Sex: 19 / FADM Date: 01/24/25 Loc: [facility] 250-[address]: Yogesh Canales D.O. Ordering Physician: Yogesh Canales D.O. Date of Service: 01/24/25 Procedure(s): US OB BPP w non-stress Accession Number(s): [id number] cc: Yogesh Canales D.O.; HAZEL GRADY [place] [address] Patient Name: FRANCES DOE MRN: [id number]:[id number] date: 2005 Sex: F Assigned Patient Location: [facility] Current Patient Location: [facility] Accession/Order Number: [id number] Exam Date: 01/24/2025 10:33 Report Date: 01/24/2025 [...] Nascimento M.D. 01/24/2025 10:38 AM Dictation Location: [place] [address] Electronically authenticated by: [id number] Y Date: 0:38 Dictated By: Aparna Nascimento M.D. Signed By:01/24/25 1041 DD/ 1038 TD/TT: Industrial Service Technician: us Yogesh Canales DO [facility] Final Result * US OB 14+ weeks anatomy scan (01/18/2025 10:30 AM EDT) Anatomical Region Laterality Modality Body Ultrasound 01/18/2025 10:3 0 AM EDT Narrative 01/18/2025 10:30 AM EDT THIS EXAM WAS PERFORMED AT [facility] NAME: BROOK CHOI : 2005 SEX: F Accession Number: [id number] ORDERING PHYSICIAN: YOGESH CANALES REFERRING PHYSICIAN: YOGESH CANALES Coding ----- --------- Procedures [id number]: Ultrasound, uterus, real time with image documentation, [...] EFW (oz) 14 oz EFW by: Hadlock ([id number]) Extended Tibia 56.1 mm 32w 6d 45% Tj District Representative 2.0 mm Head / Face / Neck [...] Heart / Thorax RVOT view. LVOT view. 1-nzgueg-vkgzalg view. Aortic arch view. Bicaval view. Ductal [...] patient as necessary. Procedure Note Radiology, Radiologist, MD - 01/18/2025 THIS EXAM WAS PERFORMED AT [facility] NAME: BROOK CHOI : 2005 SEX: F Accession Number: [id number] ORDERING PHYSICIAN: YOGESH CANALES REFERRING PHYSICIAN: YOGESH CANALES Coding ----- --------- Procedures 67951: Ultrasound, uterus, real time with imagedocumentation, and [...] EFW (oz) 14 oz EFW by: Hadlock ([id number]) Extended Tibia 56.1 mm 32w 6d 45% Tj District Representative 2.0 mm Head / Face / Neck [...] Heart / Thorax RVOT view. LVOT view. 0-hzalmm-izmnfjj view. Aortic archview. Bicaval view. Ductal arch [...] OB US PROCEDURES Final Resul t * (ABNORMAL) [facility] LIVER PANEL (01/11/2025 2:14 PM EDT) BILIRUBIN [...] Maryanne HER Final Result Performing Organization Address [facility]/Va Hospital/ZIP Co de Phone Number [facility] * [facility] BILE ACIDS FRACT BLD (01/11/2025 2:14 PM EDT) BILE ACIDS 1.6 0.0 - 10.0 umol/L [facility] Comment: Performed at: [address] [id number] Relationship Associate: Mca Chawla MD, Phone: [phone] 01/11/2025 2:14 PM EDT 01/11/2025 2:18 PM EDT Narrative [facility] - 01/12/2025 3:09 PM EDT us Maryanne HER Final Result [facility] * ALL THYROID STIM HORMONE (01/11/2025 2:14 PM EDT) THYROID STIMULATING HORMONE 0.457 0.358 - 3.740 uIU/mL [facility] 01/11/2025 2:14 PM EDT 01/11/2025 2:18 PM EDT Narrative [facility] - 01/11/2025 3:18 PM EDT Maryanne HER Final Result Performing Organization Address City/Va Hospital/ZIP Co de Phone Number [facility] * ALL HEPATITIS C AB (01/11/2025 2:14 PM EDT) Pathologist [facility] HCV ANTIBODY Non Reactive Non Reactive [facility] Comment: HCV antibody alone does not differentiate between previously resolved infection and active infection. Equivocal and Reactive HCV antibody results should be followed up with an HCV RNA test to support the diagnosis of active HCV infection. Performed at: [facility] [address] [id number] Relationship Associate: Porter Kamara PhD, Phone: [phone] 01/11/2025 2:14 PM EDT 01/11/2025 2:18 PM EDT Narrative [facility] - 01/12/2025 5:07 AM EDT Maryanne HER Final Result Performing Organization Address [facility] de Phone Number [facility] * (ABNORMAL) ALL CBC WITH AUTO DIFF (01/11/2025 2:14 PM EDT) Only the most recent of4 resultswithin the time period is included. Pathologist [facility] TB WBC 9.8 4.0 - 11.0 10 [...] PM EDT 01/11/2025 2:18 PM EDT Narrative [facility] - 01/11/2025 2:27 PM EDT us Maryanne HER Final Result [facility] * AMNISURE (01/06/2025 11:15 AM EDT) [facility] AMNISURE NEGATIVE NEGATIVE [facility] 01/06/2025 11:1 5 AM EDT 01/06/2025 11:29 AM EDT Narrative [facility] - 01/06/2025 11:41 AM EDT us Yogesh Ally DO LAB BLOOD ORDERABLES Final Resul t [facility] * US OB follow up transabdominal approach [...] II, MD, PHD at 29-Dec-2024 12:17:39 PM [facility] Procedure Note Dorothy Duckworth MD - [...] signed by DOROTHY DUCKWORTH II, MD, PHD [id number] 12:17:39 PM [facility] us Lynette Gunter RETAIL COMM[employer] SALES ASSOCIATE IMG OB US PROCEDURES Final Re sult * (ABNORMAL) [facility] URINE T PROTEIN CREAT RATIO (12/16/2024 1:30 PM EDT) TOTAL PROTEIN URINE RANDOM 17.9(H) <=11.9 mg/dL [facility] CREATININE URINE RANDOM 124.49 20.00 - 300.00 mg/dL [facility] PROTEIN CREATININE RATIO URINE 0.14 [facility] 12/16/2024 1:30 PM EDT 12/16/2024 1:34 PM EDT Narrative [facility] - 12/16/2024 1:46 PM EDT us Yogesh Herrerao DO [facility] Final Result [facility] * (ABNORMAL) [facility] LIPASE (12/16/2024 12:41 PM EDT) Only the most recent of2 resultswithin the time period is included. LIPASE 15.0(L) 16.0 - 77.0 U/L [facility] 12/16/2024 12:4 1 PM EDT 12/16/2024 12:44 PM EDT Narrative [facility] - 12/16/2024 1:22 PM EDT us Yogesh Ally DO [facility] Final Result [facility] * (ABNORMAL) [facility] CMP (CMP) (FOR REMOTE [facility] USE) (12/16/2024 12:41 PM EDT) Only the [...] 0.55 - 1.02 mg/dL [facility] EGFR-AF SPANISH >60 >=60 mL/min/1. 73m 2 [facility] EGFR-NON AF SPANISH >60 >=60 mL/min/1. 73m 2 [facility] BUN [...] us Yogesh Herrerao DO [facility] Final Result [facility] * ALL AMYLASE (12/16/2024 12:41 PM EDT) Only the most recent of2 resultswithin the time period is included. AMYLASE 36 25 - 115 U/L [facility] 12/16/2024 12:4 1 PM EDT 12/16/2024 12:44 PM EDT Narrative [facility] - 12/16/2024 1:22 PM EDT Yogesh Ally DO [facility] Final Result [facility] * ALL URIC ACID (12/16/2024 12:30 AM EDT) URIC ACID 3.2 2.6 - 6.0 mg/dL [facility] 12/16/2024 12:3 0 AM EDT 12/16/2024 1:30 AM EDT Narrative [facility] - 12/16/2024 1:37 AM EDT Mayberry Mediao DO [facility] Final Result Performing Organization Address City/[facility]/ZIP Co de Phone Number [facility] * (ABNORMAL) [facility] URINE MICROSCOPIC ONLY (12/15/2024 [...] DO [facility] Final Result Performing Organization Address [facility]/ZIP Co de Phone Number [facility] * (ABNORMAL) [facility] UA (CLEAN/CATCH) RAILROAD DISPATCHER/MICRO IF IND. (12/15/2024 11:00 PM EDT) COLOR [...] DO [facility] Final Result Performing Organization Address [facility] Co de Phone Number [facility] * GLUCOSE 1 HOUR (11/30/2024 2:12 PM EDT) GLUCOSE 1 HOUR 96 <130 mg/dL [facility] 11/30/2024 2:12 PM EDT 11/30/2024 2:14 PM EDT Narrative [facility] - 11/30/2024 3:11 PM EDT us Yogesh Ally DO LAB BLOOD ORDERABLES Final Resul t Performing Organization Address City/[facility]/ZIP Co de Phone Number [facility] * US OB limited 1+ fetuses [...] II, MD, PHD at 17-Nov-2024 06:24:10 AM [facility] Procedure Note Dorothy Duckworth MD - [...] signed by DOROTHY DUCKWORTH II, MD, PHD [id number] 06:24:10 AM [facility] us Yogesh Canales DO [facility] [place] US PROCEDURES Final Resul t from Last 3 Months Insurance [facility] Care Teams Program Supervisor Relationship Specialty Start Date End Date Hazel Grady MD [address] [place] [address] PCP - General Family Medicine 07/18/24
--- OUTSIDE RECORDS SUMMARY | 2025-01-25 14:04 | XMS_ITS | Encounter Summary ---
Author Organization [facility] Address [address] [place] [address] Care Team Providers Care Burnisher Name Role Phone David Awan MD Primary Care Provider [phone] Encounter Details Date Type Department Care Team (Late st Contact Info) Description 01/18/2025 External Result Encounter [facility] OB [address] [address] Yogesh Canales, [address] [facility] [address] [place] Flynn, [facility]11 Social History Tobacco Use Types Packs/Day Years [...] EDT Routine [facility] [address] [facility] [place] [address] Maryanne Whiteside PA [address] [place] [address] documented as of this encounter Procedures Procedure Name Priority Date/Time Associated Diagnosis Comments US OB 14+ WEEKS ANATOMY SCAN 01/18/2025 10:30 AM EDT documented in this encounter Results * US OB 14+ weeks anatomy scan (01/18/2025 10:30 AM EDT) Anatomical Region Laterality Modality Body Ultrasound 01/18/2025 10:3 0 AM EDT Narrative 01/18/2025 10:30 AM EDT THIS EXAM WAS PERFORMED AT [facility] NAME: BROOK CHOI : 2005 SEX: F Accession Number: [id number] ORDERING PHYSICIAN: YGOESH CANALES REFERRING PHYSICIAN: YOGESH CANALES Coding ----- --------- Procedures [id number]: Ultrasound, uterus, real time with image documentation, [...] EFW (oz) 14 oz EFW by: Hadlock ([id number]) Extended Tibia 56.1 mm 32w 6d 45% Tj Brake Shoe Rebuilder 2.0 mm Head / Face / Neck [...] Heart / Thorax RVOT view. LVOT view. 4-ltsusv-snofqnv view. Aortic arch view. Bicaval view. Ductal [...] - 01/18/2025 THIS EXAM WAS PERFORMED AT [facility] NAME: BROOK CHOI : 2005 SEX: F Accession Number: [id number] ORDERING PHYSICIAN: YOGESH CANALES REFERRING PHYSICIAN: YOGESH CANALES Coding ----- --------- Procedures [id number]: Ultrasound, uterus, real time with imagedocumentation, and [...] EFW (oz) 14 oz EFW by: Hadlock ([id number]) Extended Tibia 56.1 mm 32w 6d 45% Tj Brake Shoe Rebuilder 2.0 mm Head / Face / Neck [...] Heart / Thorax RVOT view. LVOT view. 2-trgjiu-qxmoebn view. Aortic archview. Bicaval view. Ductal arch [...] on filedocumented in this encounter Care Teams Burnisher Relationship Specialty Start Date End Date David Awan MD [address] [place] [address] PCP - General Family Medicine 07/18/24 documented as of this encounter
--- OUTSIDE RECORDS SUMMARY | 2025-01-25 14:04 | XMS_ITS | Encounter Summary ---
Author Organization [facility] tem Address [id number] [place] [address] Care Team Providers Care Computer Operations Technician Name Role Phone Unavailable Primary Care Provider Unavailabl e Encounter Details Date Type Department Care Team (Late st Contact Info) Description 01/04/2025 Abstract Maternal- Medicine at [facility] [address] [place] [address] Mike Lay MD [address] [facility] [address] [place] [address] Social History Tobacco Use Types Packs/Day Years [...] ORDERABLES Jessica l Result Performing Organization Address City/[facility] Co de Phone Number MANUALLY TRANSCRIBED RESULTS * Rubella IGG immune status (08/05/2024) Rubella immune IgG immune MANUALLY TRANSCRIBED RESULTS Blood Venous blood / Unknown us Not In System Ref Prov LAB BLOOD ORDERABLES Jessica l Result Performing Organization Address City/[facility] Co de Phone Number MANUALLY TRANSCRIBED RESULTS * Syphilis Total (Unknown Syphilis Status) (08/05/2024) Syphilis non reactive MANUALL Y TRANSCRIBED RESULTS Blood Venous blood / Unknown us Not In System Ref Prov LAB BLOOD ORDERABLES Jessica l Result MANUALLY TRANSCRIBED RESULTS documented in this encounter Visit Diagnoses Not on filedocumented in this encounter
--- OUTSIDE RECORDS SUMMARY | 2025-01-25 14:04 | XMS_ITS | Patient Health Record ---
Author Organization [facility] [employer] Address [address] [place] [address] Care Team Providers Care Trade Show Coordinator Name Role Phone Amanda Wilson Primary Care Provider [phone] Reason For Referral No Information Plan Of Treatment No Information Insurance Providers Payer Name Payer Address Payer Phone Subscriber Number Group Number Insured Name Patient Relationship to Insured Coverage Start Date Coverage End Date [facility] [address] [address] [place] [address] [phone] [id number] JIMBO DOE Self - patient is the insured 3
--- OUTSIDE RECORDS SUMMARY | 2025-01-25 14:04 | XMS_ITS | Encounter Summary ---
Author Organization [facility] Address [address] [place] [address] Care Team Providers Care Logistics Specialist Name Role Phone David Aawn MD Primary Care Provider [phone] Encounter Details Date Type Department Care Team (Late st Contact Info) Description 01/11/2025 Bamboo flowsheet [facility] OB [address] [place] [address] Maryanne Whiteside PA [address] [place] [address] [place], [place] [address] Social History Tobacco Use Types Packs/Day Years [...] AM EDT Routine [facility] OB [address] [place] [address] Maryanne Whiteside PA [address] [place] [address] [place], [place] [id number] documented as of this encounter Visit Diagnoses Not on filedocumented in this encounter Care Teams Logistics Specialist Relationship Specialty Start Date End Date David Awan MD [address] [place] [address] PCP - General Family Medicine 07/18/24 documented as of this encounter
--- OUTSIDE RECORDS SUMMARY | 2025-01-25 14:04 | XMS_ITS | Encounter Summary ---
Author Organization [facility] Address [address] [place] [address] Care Team Providers Care Printing Services Coordinator Name Role Phone David Awan MD Primary Care Provider [phone] Encounter Details Date Type Department Care Team (Late st Contact Info) Description 01/18/2025 Abstract [facility] OB [address] [place] [address] Zita Jade MA Social [...] AM EDT Routine [facility] B[facility] OB [address] [place] [address] Maryanne Whiteside PA [address] [facility] [address] [place], [facility]11 documented as of this encounter Visit Diagnoses Not on filedocumented in this encounter Care Teams Printing Services Coordinator Relationship Specialty Start Date End Date David Awan MD [address] [place] [address] PCP - General Family Medicine 07/18/24 documented as of this encounter
--- OUTSIDE RECORDS SUMMARY | 2025-01-25 14:04 | XMS_ITS | Encounter Summary ---
Author Organization [facility] Address [address] [address] Care Team Providers Care Thread Puller Name Role Phone David Awan MD Primary Care Provider [phone] Encounter Details Date Type Department Care Team (Late st Contact Info) Description 01/11/2025 Clinisync Result Encounter [facility] External Department Unsolicited Maryanne Whiteside PA [address] [place] [address] Dr [place], [facility]11 Social History Tobacco Use Types Packs/Day Years [...] Department Care Team (Late Contact Info) Description 02/01/2025 8:50 AM EDT Routine [facility] BCP OB [address] [facility] [phone] Maryanne Whiteside PA [address] [place] [address] documented as of this encounter Procedures Procedure Name Priority Date/Time Associated Diagnosis Comments HP LIVER PANEL Routine 01/11/2025 2:14 PM EDT [facility] BILE ACIDS FRACT BLD Routine 01/11/2025 2:14 PM EDT ALL THYROID STIM HORMONE Routine 01/11/2025 2:14 PM EDT ALL HEPATITIS C AB Routine 01/11/2025 2: 14 PM EDT ALL CBC WITH AUTO DIFF Routine 01/11/2025 2:14 PM EDT documented in this encounter Results * [facility] BILE ACIDS FRACT BLD (01/11/2025 2:14 PM EDT) Pathologist [facility] BILE ACIDS 1.6 0.0 - 10.0 umol/L [facility] Comment: Performed at: [address] [id number] Jewelry Racker: Mac Chawla MD, Phone: [phone] 01/11/2025 2:14 PM EDT 01/11/2025 2:18 PM EDT Narrative CLINISYNC - 01/12/2025 3:09 PM EDT Maryanne HER Final Result Performing Organization Address [facility] de Phone Number [facility] * ALL HEPATITIS C AB (01/11/2025 2:14 PM EDT) Pathologist [facility] HCV ANTIBODY Non Reactive Non Reactive [facility] Comment: HCV antibody alone does not differentiate between previously resolved infection and active infection. Equivocal and Reactive HCV antibody results should be followed up with an HCV RNA test to support the diagnosis of active HCV infection. Performed at: [facility] [id number] Jewelry Racker: Porter Kamara PhD, Phone: [phone] 01/11/2025 2:14 PM EDT 01/11/2025 2:18 PM EDT Narrative CLINISYNC - 01/12/2025 5:07 AM EDT Maryanne HER Final Result Performing Organization Address [facility] Co de Phone Number [facility] * ALL THYROID STIM HORMONE (01/11/2025 2:14 PM EDT) THYROID STIMULATING HORMONE 0.457 0.358 - 3.740 uIU/mL [facility] 01/11/2025 2:14 PM EDT 01/11/2025 2:18 PM EDT Narrative CLINISYNC - 01/11/2025 3:18 PM EDT Maryanne CALDERAISYODALIS Final Result Performing Organization Address [facility] de Phone Number CLINISYVT TB * (ABNORMAL) [facility] LIVER PANEL (01/11/2025 2:14 PM [...] Maryanne HER Final Result Performing Organization Address [facility]/ZIP Co de Phone Number CLINISYVT TB * (ABNORMAL) ALL CBC WITH AUTO [...] on filedocumented in this encounter Care Teams Thread Puller Relationship Specialty Start Date End Date David Awan MD [address] [id number] PCP - General Family Medicine 07/18/24 documented as of this encounter
--- OUTSIDE RECORDS SUMMARY | 2025-01-25 14:04 | XMS_ITS | Encounter Summary ---
Author Organization [facility] Address [address] [place] [address] Care Team Providers Care Tank Setter Name Role Phone David Awan MD Primary Care Provider [phone] Encounter Details Date Type Department Care Team (Late st Contact Info) Description 08/08/2024 Abstract [facility] BCP OB [address] [facility] [place] [phone] Cb Canales DO [address] [place] [address] Dr [place], [place] [id number] Social History Tobacco Use Types Packs/Day Years [...] AM EDT Routine [facility] BCP OB [address] [facility] [place] [address] Maryanne Whiteside PA [address] [facility] [address] [place], [place] [id number] documented as of this encounter Visit Diagnoses Not on filedocumented in this encounter Care Teams Tank Setter Relationship Specialty Start Date End Date David Awan MD [address] [place] [address] PCP - General Family Medicine 07/18/24 documented as of this encounter
--- OUTSIDE RECORDS SUMMARY | 2025-01-25 14:04 | XMS_ITS | Encounter Summary ---
Author Organization [facility] Address [address] [place] [address] Care Team Providers Care Staff Nuclear Medicine Technologist Name Role Phone David Awan MD Primary Care Provider [phone] Encounter Details Date Type Department Care Team (Late st Contact Info) Description 07/18/2024 Abstract [facility] BCP OB [address] [place] [phone] Cb Canales DO [address] [place] [address] [address] [place], [place] [id number] Social History Tobacco Use Types Packs/Day Years [...] BCP OB [address] [place] [address] Maryanne Whiteside PA [address] [facility] [address] [place], [place] [phone] documented as of this encounter Visit Diagnoses Not on filedocumented in this encounter Care Teams Staff Nuclear Medicine Technologist Relationship Specialty Start Date End Date David Awan MD [address] [place] [address] PCP - General Family Medicine 07/18/24 documented as of this encounter
--- OUTSIDE RECORDS SUMMARY | 2025-01-25 14:04 | XMS_ITS | Clinical Summary ---
Author Organization [employer] [facility] tem Address [id number] [address] [place] [address] Care Team Providers Care Personal Clothing Laundry Aide Name Role Phone Unavailable Primary Care Provider [...] Description 01/04/2025 Orders Only M[facility]- Medicine at [facility] [address] [place] [phone] Ref Prov, Not In System 01/04/2025 Abstract Maternal- Medicine at [facility] [address] [place] [address] Mike Lay MD from Last 3 Months [...] 9:32 AM EDT) Anatomical Region Laterality Modality OB-MANAGER OF DEVELOPMENT Ultrasound 01/18/2025 8:21 AM EDT Narrative 01/18/2025 10:30 AM EDT NAME: BROOK CHOI : 2005 SEX: F Accession Number: [id number] ORDERING PHYSICIAN: CB CANALES REFERRING PHYSICIAN: CB CANALES Coding ----- --------- Procedures 55575: Ultrasound, uterus, real time with image documentation, [...] EFW (oz) 14 oz EFW by: Hadlock ([id number]) Extended Tibia 56.1 mm 32w 6d 45% Tj Cosmetologist 2.0 mm Head / Face / Neck [...] Heart / Thorax RVOT view. LVOT view. 0-dafold-svkxpra view. Aortic arch view. Bicaval view. Ductal [...] CHOI : 2005 SEX: F Accession Number: [id number] ORDERING PHYSICIAN: CB CANALES REFERRING PHYSICIAN: CB CANALES Coding ----- --------- Procedures [id number]: Ultrasound, uterus, real time with imagedocumentation, and [...] EFW (oz) 14 oz EFW by: Hadlock ([id number]) Extended Tibia 56.1 mm 32w 6d 45% Tj Cosmetologist 2.0 mm Head / Face / Neck [...] Heart / Thorax RVOT view. LVOT view. 6-npoess-zhygipa view. Aortic archview. Bicaval view. Ductal arch [...] period is included. Anatomical Region Laterality Modality OB-MANAGER OF DEVELOPMENT Ultrasound us Not In System Ref Prov IMG US ORDERABLES Final R esult * CBC without diff (11/30/2024) Hemoglobin 11.2 MANUALLY TRANSCRIBED RESULTS Hematocrit 34.0 MANUALLY TRANSCRIBED RESULTS Rbc Mcv (Fl) By Automated Count 84.0 MANUALLY TRANSCRIBED RESULTS Blood Venous blood / Unknown us Not In System Ref Prov LAB BLOOD ORDERABLES Jessica l Result MANUALLY TRANSCRIBED RESULTS from Last 3 Months Insurance [facility] [place] [address]
[2025-01-25 14:21] VITALS: BP 122/84; PULSE 97
--- NOTE | 2025-01-25 14:31 | US_ITS ---
[address] [address] Patient Name: JIMBO DOE MRN: [id number] date: 2005 Sex: F [place]igned [place] [facility] [place] Patient Location: Accession/Order Number: [id number] Exam Date: 01/25/2025 14:59 Report Date: 01/25/2025 15:01 At the request of: YOGESH CALI DO Procedure: US OB BPP w non-stress Biophysical profile. Reason for exam: Oligohydramnios. COMPARISON: BPP 01/24/2025. TECHNIQUE: Transabdominal imaging of the gravid uterus was obtained. FINDINGS: Sales Office Coordinator reports a BPP of 8 out of 8. JEROD is normal 11.4 cm. heart rate 159 bpm. US/US OB BPP w non-stress Impression: BPP 8 out of 8. Impression dictated by: Stanislav Francisco Jr., D.O. 01/25/2025 3:01 PM Dictation Location: [place] [address] Electronically authenticated by: [id number] Y Date: 01/25/2025 15:01
== END 2025-01-25 14:55 | disposition home or self-care (01) ==
LOC: FBCO 14:00 → FBC 14:02
PROVIDERS: PCP Family Medicine; Visit Provider Obstetrics & Gynecology
DX: O41.03X0 Oligohydramnios, third trimester, not applicable or unspecified (principal); Z3A.34 34 weeks gestation of pregnancy
CPT/HCPCS: 76818

== ENCOUNTER 2025-01-27 10:01 | Outpatient (OUT) | payer OTHER, SELFPAY ==
--- OUTSIDE RECORDS SUMMARY | 2016-05-22 10:00 | XMS_ITS | Continuity of Care Document ---
Author Organization [employer] [facility] Address [address] [facility] [place] [address] Phone Care Team Providers Care Cable Mock Up Assembler Name Role Phone Floyd WANG, Selvin Unavailable [...] Diagnoses Date Provider Providers Copied on Encounter [employer] [facility], [address] [facility] [address], [place], [place], [address], [place] tel:[phone] [facility] vaccine adm. (chief complaint) No Information 6 Floyd Montalvo. [address] [address], [place], [place], [address], [place]. tel:[phone] Referring Provider: Selvin Bell, [address] [address], [place], [address] . tel:[phone] [facility], [address] [place] [address] [address], [place], [place], [address], [place] tel:[phone] [facility] No Information 6 No Information [facility], [address] [place] [address] [address], [place], [place], [address], [place] tel:[phone] [facility] No Information 5 Floyd Montalvo. [address] [address], [place], [place], [address], [place]. tel:[phone] PREV VISIT, NEW, AGE 5-11 [facility], [address] [place] [address] [address], [place], [place], [address], [place] tel:[phone] [facility] Well child (chief complaint) Encntr for routine child health exam w/o abnormal findings 5 Ahmet Snyder. [address], [address], [place]. tel:[phone] Referring Provider: Lillian Leo MD, [facility] [address], [address]. tel:[phone] Family History Family Member Type Diagnosis Age At Onset No Information Immunizations Vaccine Date Status Comments meningococcal MCV4P administered Source: New Immunization Record HPV (9-valent) administered Source: New I mmunization Record Tdap administered Source: New Imm unization Record Hep A (ped/adol, 2 dose) administered Rama rce: New Immunization Record varicella virus vaccine administered Sour ce: [...] Registry Payers Payer name Insurance type Covered green party ID Authoriza tion(s) Medicaid [place] [id number] Medicaid [place] [id number] Medicaid [place] [id number] [facility] [id number] Social History Type Description Quantity Date [...]
--- OUTSIDE RECORDS SUMMARY | 2023-08-23 10:15 | XMS_ITS ---
Author Organization [facility] Address [address] [place] [address] Care Team Providers Care Advanced Manufacturing Vice President Name Role Phone Amanda Wilson Primary Care Provider REASON FOR VISIT NEW PT REFERRAL FROM [facility] Encounters Encounter Location Date Provider Diagnosis [facility] [address] [place] [address] 08/23/2023 Amanda Wilson Plan Of Treatment No Information Progress Notes * YUMIKO DOEEDOB: [birth year] (19 yo F)Acc No.[id number]:08/23/2023 Consult - Patient Patient: JIMBO PICHARDO Provider: JOSEPH Dumont :2005 A ge:17 Y S ex:Female Date:08/23/2023 Address:[address], [place], [id number] Subjective: * Chief Complaints: * 1 . NEW PT REFERRAL FROM [facility]. Objective: Therapeutic Interventions: Assessment: Plan: * Images: Care Plan Details* * Electronic signature of JOSEPH Sheikh on 01/27/2025 at 10:03 AM EDT Sign off status: Pending * Provider: JOSEPH Dumont Date: 08/23/2023 Generated for Jessyi ng/Faxing/eTransmitting on: 0 01/27/2025 10:03 AM EDT
--- OUTSIDE RECORDS SUMMARY | 2025-01-27 10:03 | XMS_ITS | Clinical Summary ---
Author Organization [facility] Address [address] [place] [address] Care Team Providers Care Lead Bi Developer Name Role Phone Hazel Grady MD Primary Care Provider [phone] Allergies Active Allergy Reactions Criticality Noted Date Comments Amoxicillin Rash Low 2003 Medications sertraline (Zoloft) 50 MG tablet Take 50 mg by mouth at bedtime 04/05/2024 Active promethazine (Phenergan) 12.5 MG tabletIndicatio ns: headache, antepartum ([facility]) Take 1 tablet (12.5 mg) by mouth [...] Description 01/25/2025 8:40 AM EDT Routine [facility] [address] [place] [place] [phone] Yogesh Canales DO Third trimester ([facility]); 34 weeks gestation of ([facility]) 01/25/2025 Clinisync Result Encounter [facility]OM[facility] External Department Unsolicited Yogesh Canales DO 01/25/2025 Bamboo flowsheet [facility] [address] [place] [address] Yogesh Canales, DO 01/24/2025 Clinisync Result Encounter NOMS External Department Unsolicited Yogesh Canales, DO 01/18/2025 Abstract [facility] [address] [place] [address] Zita Jade MA 01/18/2025 External Result Encounter [facility] [address] [place] [address] Yogesh Canales, DO 01/17/2025 Clinisync Result Encounter NOMS External Department Unsolicited Yogesh Canales, DO 01/11/2025 1:30 PM EDT Routine [facility] [address] [place] [address] Maryanne Whiteside PA Third trimester ([facility]); 32 weeks gestation of ([facility]); Pruritus 01/11/2025 Clinisync Result Encounter NOMS External Department Unsolicited Maryanne Whiteside PA 01/11/2025 Bamboo flowsheet [facility]OM[facility] [address] [place] [address] Maryanne Whiteside PA 01/10/2025 Clinisync Result Encounter NOMS External Department Unsolicited Yogesh Canales, DO 01/06/2025 Clinisync Result Encounter [facility]OMS External Department Unsolicited Yogesh Canales, DO 01/03/2025 Clinisync Result Encounter NOMS External Department Unsolicited Yogesh Canales, DO 12/28/2024 9:50 AM EDT Routine [facility] [address] [place] [address] Yogesh Canales, DO 30 weeks gestation of ([facility]); Third trimester ([facility]); Oligohydramnios in third trimester, fetus 1 of multiple gestation ([facility]) 12/28/2024 9:00 AM EDT Ancillary Procedure [facility] [address] [place] [phone] [phone] size inconsistent with dates ([facility]) 12/16/2024 Clinisync Result Encounter [facility]OMS External Department Unsolicited Yogesh Canales, 12/15/2024 Clinisync Result Encounter NOMS External Department Unsolicited Yogesh Canales, 12/06/2024 1:20 PM EDT Routine [facility] [address] [place] [address] Lynette Gunter NP size inconsistent with dates ([facility]) (Primary Dx); 27 weeks gestation of ([facility]); Second trimester ([facility]) 12/06/2024 Travel 12/06/2024 Bamboo flowsheet [facility]OM[facility] [address] [place] [phone] Lynette Gunter NP 11/30/2024 Clinisync Result Encounter NOMS External Department Unsolicited Yogesh Canales, 11/15/2024 10:50 AM EDT Routine [facility] [address] [place] [address] Yogesh Canales, 24 weeks gestation of ([facility]); Second trimester ([facility]); Diabetes mellitus screening 11/15/2024 10:00 AM EDT Ancillary Procedure [facility] [address] [place] [address] Encounter for follow-up ultrasound of anatomy ([facility]) 11/01/[address] [address] [place] [address] Yogesh Canales DO from Last 3 Months [...] AM EDT Routine [facility] OB [address] [facility] [place] [address] Maryanne Whiteside PA [address] [place] [address] Procedures Procedure Name Priority Date/Time Associated Diagnosis Comments US OB BPP W NON-STRESS 01/25/2025 3:01 PM EDT POCT URINALYSIS DIPSTICK Routine 01/25/2025 9:22 AM EDT Third trimester ([facility]) US OB BPP W NON-STRESS 01/24/2025 10:38 [...] 10:23 AM EDT 30 weeks gestation of ([facility]) US OB FOLLOW UP TRANSABDOMINAL APPROACH Routine 12/28/2024 9:43 AM EDT size inconsistent with dates ([facility]) TBH URINE T PROTEIN CREAT RATIO Routine [...] 12/15/2024 11:00 PM EDT TBH UA (CLEAN/CATCH) DECISION SUPPORT MANAGER/MICRO IF IND. Routine 12/15/2024 11:00 PM EDT POCT URINALYSIS DIPSTICK Routine 12/06/2024 1:28 PM EDT 27 weeks gestation of ([facility]) Second trimester ([facility]) GLUCOSE 1 HOUR Routine 11/30/2024 2:12 PM EDT ALL CBC WITH AUTO DIFF Routine 2:12 PM EDT POCT URINALYSIS DIPSTICK Routine 11/15/2024 10:42 AM EDT 24 weeks gestation of ([facility]) Second trimester ([facility]) US OB LIMITED 1+ FETUSES Routine 11/15/2024 10:24 AM EDT Encounter for follow-up ultrasound of anatomy ([facility]) from Last 3 Months Results * US OB BPP W NON-STRESS (01/25/2025 3:01 PM EDT) Only the most recent of5 resultswithin the time period is included. Anatomical Region Laterality Modality Other 01/25/2025 3:01 PM EDT Narrative 01/25/2025 3:04 [place] [address] Ultrasound Report Signed Patient: FRANCES DOE MR#: [id number] : 2005 Acct:[id number] Age/Sex: 19 / F ADM Date: 01/25/25 Loc: [facility] Attending Dr: Yogesh Canales D.O. Ordering Physician: Yogesh Canales D.O. Date of Service: 01/25/25 Procedure(s): US OB BPP w non-stress Accession Number(s): [id number] cc: Yogesh Canales D.O.; HAZEL GRADY [place] [address] Patient Name: FRANCES DOE MRN: [id number] date: 2005 Sex: F Assigned Patient Location: [facility] [place] [place] Current Patient Location: Accession/Order Number: [id number] Exam Date: 01/25/2025 14:59 Report Date: 01/25/2025 15:01 At the request of: YOGESH CANALES DO Procedure: US OB BPP w non-stress Biophysical profile. Reason for exam: Oligohydramnios. COMPARISON: BPP 01/24/2025. TECHNIQUE: Transabdominal imaging of the gravid uterus was obtained. FINDINGS: Boiler Blower reports a BPP of 8 out of 8. JEROD is normal 11.4 cm. heart rate 159 bpm. US/US OB BPP w non-stress Impression: BPP 8 out of 8. Impression dictated by: Stanislav Francisco Jr., D.O. 01/25/2025 3:01 PM Dictation Location: [place] [address] Electronically authenticated by: [id number] Y Date: 01/25/2025 15:01 Dictated By: Stanislav Francisco M.D. Signed By: 01/25/25 1504 DD/ 1501 TD/TT: Cosmetic Maker: Procedure Note Radiology, Radiologist, MD - 01/25/2025 [place] [address] Ultrasound Report Signed Patient: FRANCES DOE RMR#: [id number] : 2005Acct:[id number] Age/Sex: 19 / FADM Date: 01/25/25 Loc: [facility] [place] [place] Attending Dr: Yogesh Canales D.O. Ordering Physician: Yogesh Canales D.O. Date of Service: 01/25/25 Procedure(s): US OB BPP w non-stress Accession Number(s): [id number] cc: Yogesh Canales D.O.; HAZEL GRADY [place] [address] Patient Name: FRANCES DOE MRN: [id number] date: 2005 Sex: F Assigned Patient Location: [facility] [place] [place] Current Patient Location: Accession/Order Number: [id number] Exam Date: 01/25/2025 14:59 Report Date: 01/25/2025 15:01 At the request of: YOGESH CANALES DO Procedure: US OB BPP w non-stress Biophysical profile. Reason for exam: Oligohydramnios. COMPARISON: BPP 01/24/2025. TECHNIQUE: Transabdominal imaging of the gravid uterus was obtained. FINDINGS: Boiler Blower reports a BPP of 8 out of 8. JEROD is normal 11.4 cm. heart rate 159 bpm. US/US OB BPP w non-stress Impression: BPP 8 out of 8. Impression dictated by: Stanislav Francisco Jr., D.O. 01/25/2025 3:01 PM Dictation Location: [place] [address] Electronically authenticated by: [id number] Y Date: 5:01 Dictated By: Stanislav Francisco M.D. Signed By:01/25/25 1504 DD/ 1501 TD/TT: Cosmetic Maker: us Yogesh Canales DO [facility] Final Result * POCT urinalysis dipstick manually resulted (01/25/2025 [...] Urine 01/25/2025 9:22 AM EDT us Yogesh Canales DO POINT OF CARE TEST ENTER/EDIT OR DERABLES Final Result * US OB 14+ weeks anatomy scan (01/18/2025 10:30 AM EDT) Anatomical Region Laterality Modality Body Ultrasound 01/18/2025 10:3 0 AM EDT Narrative 01/18/2025 10:30 AM EDT THIS EXAM WAS PERFORMED AT [facility] NAME: BROOK CHOI : 2005 SEX: F Accession Number: [id number] ORDERING PHYSICIAN: YOGESH CANALES REFERRING PHYSICIAN: YOGESH CANALES Coding ----- --------- Procedures 44694: Ultrasound, uterus, real time with image documentation, [...] EFW (oz) 14 oz EFW by: Hadlock (KCF-VO-NH-FL) Extended Tibia 56.1 mm 32w 6d 45% Tj [employer] Supervisor 2Nd Shift 2.0 mm Head / Face / Neck [...] Heart / Thorax RVOT view. LVOT view. 7-wyqnps-vvouvdh view. Aortic arch view. Bicaval view. Ductal [...] - 01/18/2025 THIS EXAM WAS PERFORMED AT [facility] NAME: BROOK CHOI Jonathon : 2005 SEX: F Accession Number: [id number] ORDERING PHYSICIAN: YOGESH CANALES REFERRING PHYSICIAN: YOGESH CANALES Coding ----- --------- Procedures [id number]: Ultrasound, uterus, real time with imagedocumentation, and [...] EFW (oz) 14 oz EFW by: Hadlock (UPS-HE-FI-FL) Extended Tibia 56.1 mm 32w 6d 45% [employer] Supervisor 2Nd Shift 2.0 mm Head / Face / Neck [...] Heart / Thorax RVOT view. LVOT view. 6-hzmwoe-bcwjmvf view. Aortic archview. Bicaval view. Ductal arch [...] byprimary OB provider unless otherwise specified by [facility]. Results forwarded to ordering provider so they can follow up with thepatient as necessary. us Yogesh Canales DO [facility] US PROCEDURES Final Resul t * (ABNORMAL) [facility] LIVER PANEL (01/11/2025 2:14 PM EDT) BILIRUBIN [...] - 01/11/2025 3:18 PM EDT us Maryanne CALDERAISYODALIS Final Result Performing Organization Address City/[facility] Co de Phone Number [facility] * [facility] BILE ACIDS FRACT BLD (01/11/2025 2:14 PM EDT) Pathologist [facility] BILE ACIDS 1.6 0.0 - 10.0 umol/L TB Comment: Performed at: [address] [id number] [employer] Salesperson: Mac Chawla MD, Phone: [phone] 01/11/2025 2:14 PM EDT 01/11/2025 2:18 PM EDT Narrative [facility] - 01/12/2025 3:09 PM EDT us Maryanne CALDERAISYODALIS Final Result Performing Organization Address [facility] Co de Phone Number [facility] TB * ALL THYROID STIM HORMONE (01/11/2025 2:14 PM EDT) [facility] THYROID STIMULATING HORMONE 0.457 0.358 - 3.740 uIU/mL [facility]H 01/11/2025 2:14 PM EDT 01/11/2025 2:18 PM EDT Narrative [facility]IN[facility] - 01/11/2025 3:18 PM EDT Maryanne HER Final Result Performing Organization Address [facility] Co de Phone Number [facility] TB * ALL HEPATITIS C AB (01/11/2025 2:14 PM EDT) [facility] HCV ANTIBODY Non Reactive Non Reactive [facility] Comment: HCV antibody alone does not differentiate between previously resolved infection and active infection. Equivocal and Reactive HCV antibody results should be followed up with an HCV RNA test to support the diagnosis of active HCV infection. Performed at: - [facility] [id number] [employer] Salesperson: Porter Kamara PhD, Phone: [phone] 01/11/2025 2:14 PM EDT 01/11/2025 2:18 PM EDT Narrative CLIN[facility] - 01/12/2025 5:07 AM EDT Maryanne FOWLER [facility] Final Result [facility] * (ABNORMAL) ALL CBC WITH AUTO DIFF (01/11/2025 2:14 PM EDT) Only the most recent of4 resultswithin the time period is included. TBH WBC 9.8 4.0 - 11.0 10 3/uL [...] - 01/11/2025 2:27 PM EDT us Maryanne FOWLER [facility] Final Result Performing Organization Address [facility] Co de Phone Number [facility] * AMNISURE (01/06/2025 11:15 AM EDT) Pathologist [facility] AMNISURE NEGATIVE NEGATIVE TBH 01/06/2025 11:1 5 AM EDT 01/06/2025 11:29 AM EDT Narrative CLIN[facility] - 01/06/2025 11:41 AM EDT us Yogesh Canales DO LAB BLOOD ORDERABLES Final Resul t Performing Organization Address [facility] de Phone Number [facility] * US OB follow up transabdominal approach [...] II, MD, PHD at 29-Dec-2024 12:17:39 PM [facility] Procedure Note Dorothy Duckworth MD [...] signed by DOROTHY DUCKWORTH II, MD, PHD [id number] 12:17:39 PM [facility] Lynette Gunter AIR TOOL OPERATOR IMG OB US PROCEDURES Final Re [...] DO CLIN[facility] Final Result Performing Organization Address City/[facility]/ZIP Co de Phone Number [facility] TB[facility] [...] * (ABNORMAL) [facility] CMP (CMP) (FOR REMOTE [facility] USE) (12/16/2024 12:41 PM EDT) Only [...] 0.55 - 1.02 mg/dL TBH TBH EGFR-AF MALAWIAN >60 >=60 mL/min/1. 73m 2 TBH TBH EGFR-NON AF MALAWIAN >60 >=60 mL/min/1. 73m 2 TBH BUN [...] DO CLIN[facility] Final Result Performing Organization Address City/[facility]/ZIP Co de Phone Number [facility] * ALL AMYLASE (12/16/2024 12:41 PM EDT) Only the most recent of2 resultswithin the time period is included. AMYLASE 36 25 - 115 U/L TB 12/16/2024 12:4 1 PM EDT 12/16/2024 12:44 PM EDT Narrative [facility] - 12/16/2024 1:22 PM EDT Yogesh Ally DO [facility] Final Result [facility] * ALL URIC ACID (12/16/2024 12:30 AM EDT) URIC ACID 3.2 2.6 - 6.0 mg/dL TBH 12/16/2024 12:3 0 AM EDT 12/16/2024 1:30 AM EDT Narrative CLINISYNC - 12/16/2024 1:37 AM EDT Yogesh Ally DO [facility] Final Result Performing Organization Address [facility] de Phone Number [facility] * [...] Narrative [facility]IN[facility] - 12/15/2024 11:39 PM EDT Yogesh Ally DO [facility] Final Result Performing Organization Address [facility] de Phone Number [facility] * (ABNORMAL) TBH UA (CLEAN/CATCH) DECISION SUPPORT MANAGER/MICRO IF IND. (12/15/2024 11:00 PM EDT) COLOR [...] Final Result Performing Organization Address [facility] de Phone Number CLINI[facility] TB * GLUCOSE 1 HOUR (11/30/2024 2:12 PM EDT) GLUCOSE 1 HOUR 96 <130 mg/dL TBH 11/30/2024 2:12 PM EDT 11/30/2024 2:14 PM EDT Narrative CLIN[facility]NC - 11/30/2024 3:11 PM EDT us Yogesh Ally DO LAB BLOOD ORDERABLES Final Resul t Performing Organization Address [facility] de Phone Number [facility] TB * US OB limited 1+ fetuses [...] II, MD, PHD at 17-Nov-2024 06:24:10 AM [facility] Procedure Note Dorothy Duckworth [...] signed by DOROTHY DUCKWORTH II, MD, PHD [id number] 06:24:10 AM [facility] us Yogesh Ally DO IMG OB US PROCEDURES Final Resul t from Last [address] [place] [address] [place] [address] Care Teams Lead Bi Developer Relationship Specialty Start Date End Date Hazel Grady MD [address] [place] [address] PCP - General Family Medicine 07/18/24
--- OUTSIDE RECORDS SUMMARY | 2025-01-27 10:03 | XMS_ITS | Encounter Summary ---
Author Organization [facility] Address [address] [place] [address] Care Team Providers Care Manager Oracle Database Name Role Phone Hazel Grady MD Primary Care Provider [phone] Encounter Details Date Type Department Care Team (Late st Contact Info) Description 01/24/2025 Clinisync Result Encounter NOMS External Department Unsolicited Yogesh Canales DO [address] [facility] [address] [place], [place] [address] Social History Tobacco Use Types Packs/Day Years [...] AM EDT Routine [facility] [address] [phone] Maryanne Whiteside PA [address] [place] [address] documented as of this encounter Procedures Procedure Name Priority Date/Time Associated Diagnosis Comments US OB BPP W NON-STRESS 01/24/2025 10:38 AM EDT documented in this encounter Results * US OB BPP W NON-STRESS (01/24/2025 10:38 AM EDT) Anatomical Region Laterality Modality Other 01/24/2025 10:3 8 AM EDT Narrative 01/24/2025 10:41 [place] [address] Ultrasound Report Signed Patient: JIMBO DOE MR#: [id number] : 2005 Acct:[id number] Age/Sex: 19 / F ADM Date: 01/24/25 Loc: [facility] 250-[address]: Yogesh Canales D.O. Ordering Physician: Yogesh Canales D.O. Date of Service: 01/24/25 Procedure(s): US OB BPP w non-stress Accession Number(s): [id number] cc: Yogesh Canales D.O.; HAZEL GRADY [place] [id number] Patient Name: JIMBO DOE MRN: [id number] date: 2005 Sex: F Assigned Patient Location: [facility] Current Patient Location: [facility] Accession/Order Number: [id number] Exam Date: 01/24/2025 10:33 Report Date: 01/24/2025 [...] Nascimento M.D. 01/24/2025 10:38 AM Dictation Location: [place] [address] Electronically authenticated by: [id number] Y Date: 01/24/2025 10:38 Dictated By: Aparna Nascimento M.D. Signed By: 01/24/25 1041 DD/ 1038 TD/TT: Papeterie Table Assembler: Procedure Note Radiology, Radiologist, MD - 01/24/2025 [place] [address] Ultrasound Report Signed Patient: JIMBO DOE RMR#: [id number] : 2005Acct:[id number] Age/Sex: 19 / FADM Date: 01/24/25 Loc: [place] [address]- Attending Dr: Yogesh Canales D.O. Ordering Physician: Yogesh Canales D.O. Date of Service: 01/24/25 Procedure(s): US OB BPP w non-stress Accession Number(s): [id number] cc: Yogesh Canales D.O.; HAZEL GRADY [place] [address] Patient Name: JIMBO DOE MRN: [facility]:[id number] date: 2005 Sex: F Assigned Patient Location: [facility] Current Patient Location: [facility] Accession/Order Number: [id number] Exam Date: 01/24/2025 10:33 Report Date: 01/24/2025 [...] Nascimento M.D. 01/24/2025 10:38 AM Dictation Location: [place] [address] Electronically authenticated by: [id number] Y Date: 0:38 Dictated By: Aparna Nascimento M.D. Signed By:01/24/25 1041 DD/ 1038 TD/TT: Papeterie Table Assembler: us Yogesh Ally DO [facility] Final Result documented in this encounter Visit Diagnoses Not on filedocumented in this encounter Care Teams Manager Oracle Database Relationship Specialty Start Date End Date Hazel Grady MD [address] [place] [address] PCP - General Family Medicine 07/18/24 documented as of this encounter
--- OUTSIDE RECORDS SUMMARY | 2025-01-27 10:03 | XMS_ITS | Encounter Summary ---
Author Organization [facility] tem Address [id number] [address] [place] [address] Care Team Providers Care Hoist Operator Name Role Phone Unavailable Primary Care Provider Unavailabl e Encounter Details Date Type Department Care Team (Late st Contact Info) Description 01/04/2025 Orders Only Maternal- Medicine at [facility] [address] [place] [phone] Ref Prov, [place] [address] Social History Tobacco Use Types Packs/Day Years [...] 10:58 AM EDT) Anatomical Region Laterality Modality OB-BRILLIANDEER LOPPER Ultrasound us Not In System Ref Prov IMG US ORDERABLES Final R esult * Ultrasound limited 1 or more fetus (01/04/2025 10:56 AM EDT) Anatomical Region Laterality Modality OB-BRILLIANDEER LOPPER Ultrasound us Not In System Ref Prov IMG US ORDERABLES Final R esult * Ultrasound limited 1 or more fetus (01/04/2025 10:55 AM EDT) Anatomical Region Laterality Modality OB-BRILLIANDEER LOPPER Ultrasound us Not In System Ref Prov IMG US ORDERABLES Final R esult * Ultrasound limited 1 or more fetus (01/04/2025 10:54 AM EDT) Anatomical Region Laterality Modality OB-BRILLIANDEER LOPPER Ultrasound us Not In System Ref Prov IMG US ORDERABLES Final R esult * Ultrasound limited 1 or more fetus (01/04/2025 10:51 AM EDT) Anatomical Region Laterality Modality OB-BRILLIANDEER LOPPER Ultrasound us Not In System Ref Prov IMG US ORDERABLES Final R esult documented in this encounter Visit Diagnoses Not on filedocumented in this encounter
--- OUTSIDE RECORDS SUMMARY | 2025-01-27 10:03 | XMS_ITS | Encounter Summary ---
Author Organization [facility] tem Address [id number] [address] [place] [address] Care Team Providers Care Inspector Floor Sub Assembly Name Role Phone Unavailable Primary Care Provider Unavailabl e Encounter Details Date Type Department Care Team (Late st Contact Info) Description 01/04/2025 Abstract Maternal- Medicine at [facility] [address] [place] [phone] Mike Lay MD [address] [facility] [address] [place] [address] Social History Tobacco Use Types Packs/Day Years [...] ORDERABLES Jessica l Result Performing Organization Address City/[facility] Co de Phone Number MANUALLY TRANSCRIBED RESULTS * Rubella IGG immune status (08/05/2024) Rubella immune IgG immune MANUALLY TRANSCRIBED RESULTS Blood Venous blood / Unknown us Not In System Ref Prov LAB BLOOD ORDERABLES Jessica l Result Performing Organization Address City/[facility] Co de Phone Number MANUALLY TRANSCRIBED RESULTS * Syphilis Total (Unknown Syphilis Status) (08/05/2024) Syphilis non reactive MANUALL Y TRANSCRIBED RESULTS Blood Venous blood / Unknown us Not In System Ref Prov LAB BLOOD ORDERABLES Jessica l Result MANUALLY TRANSCRIBED RESULTS documented in this encounter Visit Diagnoses Not on filedocumented in this encounter
--- OUTSIDE RECORDS SUMMARY | 2025-01-27 10:03 | XMS_ITS | Clinical Summary ---
Author Organization [employer] [facility] tem Address [id number] [address] [place] [address] Care Team Providers Care Career Services Manager Name Role Phone Unavailable Primary Care Provider [...] Description 01/04/2025 Orders Only Maternal- Medicine at [facility] [address] [place] [phone] Ref Prov, Not In System 01/04/2025 Abstract Maternal- Medicine at [facility] [address] [place] [address] Mike Lay MD from Last 3 Months [...] 9:32 AM EDT) Anatomical Region Laterality Modality OB-PROTOTYPE ENGINEER Ultrasound 01/18/2025 8:21 AM EDT Narrative 01/18/2025 10:30 AM EDT NAME: BROOK CHOI : 2005 SEX: F Accession Number: [id number] ORDERING PHYSICIAN: CB CANALES REFERRING PHYSICIAN: CB CANALES Coding ----- --------- Procedures 27437: Ultrasound, uterus, real time with image documentation, [...] EFW (oz) 14 oz EFW by: Hadlock ([id number]-OB-AV-FL) Extended Tibia 56.1 mm 32w 6d 45% Tj Car Tracer 2.0 mm Head / Face / Neck [...] Heart / Thorax RVOT view. LVOT view. 6-htxfrc-kpdalcd view. Aortic arch view. Bicaval view. Ductal [...] CHOI : 2005 SEX: F Accession Number: [id number] ORDERING PHYSICIAN: CB CANALES REFERRING PHYSICIAN: CB CANALES Coding ----- --------- Procedures 26705: Ultrasound, uterus, real time with imagedocumentation, and [...] EFW (oz) 14 oz EFW by: Hadlock (JKJ-IP-VE-FL) Extended Tibia 56.1 mm 32w 6d 45% Tj Car Tracer 2.0 mm Head / Face / Neck [...] Heart / Thorax RVOT view. LVOT view. 5-vpodew-wocooqv view. Aortic archview. Bicaval view. Ductal arch [...] period is included. Anatomical Region Laterality Modality OB-PROTOTYPE ENGINEER Ultrasound us Not In System Ref Prov [...] RESULTS from Last 3 Months Insurance [facility]
--- OUTSIDE RECORDS SUMMARY | 2025-01-27 10:03 | XMS_ITS | Patient Health Record ---
Author Organization [employer] [facility] [employer] [facility] Address [address] [place] [address] Care Team Providers Care Casting Machine Control Board Operator Name Role Phone Amanda Wilson Primary Care Provider [phone] Reason For Referral No Information Plan Of Treatment No Information Insurance Providers Payer Name Payer Address Payer Phone Subscriber Number Group Number Insured Name Patient Relationship to Insured Coverage Start Date Coverage End Date [facility] [address] [address] [place] [address] [phone] [id number] JIMBO DOE Self - patient is the insured 3
--- OUTSIDE RECORDS SUMMARY | 2025-01-27 10:03 | XMS_ITS | Encounter Summary ---
Author Organization [facility] Address [address] [place] [address] Care Team Providers Care Grants And Contracts Assistant Name Role Phone Hazel Grady MD Primary Care Provider [phone] Encounter Details Date Type Department Care Team (Late st Contact Info) Description 01/17/2025 Clinisync Result Encounter [facility] External Department Unsolicited Yogesh Canales DO [address] [facility] [address] [place], [place] [address] Social History Tobacco Use Types Packs/Day Years [...] Routine [facility] [address] [facility] [place] [address] Maryanne Whiteside PA [address] [place] [address] documented as of this encounter Procedures Procedure Name Priority Date/Time Associated Diagnosis Comments US OB BPP W NON-STRESS 01/17/2025 10:51 AM EDT documented in this encounter Results * US OB BPP W NON-STRESS (01/17/2025 10:51 AM EDT) Anatomical Region Laterality Modality Other 01/17/2025 10:5 1 AM EDT Narrative 01/17/2025 10:54 [place] [address] Ultrasound Report Signed Patient: JIMBO DOE MR#: [id number] : 2005 Acct:[id number] Age/Sex: 19 / F ADM Date: 01/17/25 Loc: [facility] 254-[address]: Yogesh Canales D.O. Ordering Physician: Yogesh Canales D.O. Date of Service: 01/17/25 Procedure(s): US OB BPP w non-stress Accession Number(s): [id number] cc: Yogesh Canales D.O.; HAZEL GRADY [place] [address] Patient Name: JIMBO DOE MRN: [id number] date: 2005 Sex: F Assigned Patient Location: [facility] Current Patient Location: [facility] Accession/Order Number: [id number] Exam Date: 01/17/2025 10:50 Report Date: 01/17/2025 10:51 At the request of: YOGESH CANALES DO Procedure: US OB BPP w non-stress BIOPHYSICAL PROFILE: CLINICAL INFORMATION: oligohydramnios COMPARISON: 01/10/2025 There is a single live intrauterine gestation in cephalic presentation. The reported gestational age is 33 weeks 4 days. The heart rate [id number] beats per minute. FINDINGS: TONE: 1 or [...] Nascimento M.D. 01/17/2025 10:51 AM Dictation Location: [place] [address] Electronically authenticated by: [id number] Y Date: 01/17/2025 10:51 Dictated By: Aparna Nascimento M.D. Signed By: 01/17/25 1054 DD/ 1051 TD/TT: Internal Controls Analyst: Procedure Note Radiology, Radiologist, MD - 01/17/2025 [place] [address] Ultrasound Report Signed Patient: JIMBO DOE RMR#: [id number] : 2005Acct:[id number] Age/Sex: 19 / FADM Date: 01/17/25 Loc: [facility] 254-[address]: Yogesh Canales D.O. Ordering Physician: Yogesh Canales D.O. Date of Service: 01/17/25 Procedure(s): US OB BPP w non-stress Accession Number(s): [id number] cc: Yogesh Canales D.O.; HAZEL GRADY [place] [address] Patient Name: JIMBO DOE MRN: [id number] date: 2005 Sex: F Assigned Patient Location: [facility] Current Patient Location: [facility] Accession/Order Number: [id number] Exam Date: 01/17/2025 10:50 Report Date: 01/17/2025 10:51 At the request of: YOGESH CANALES DO Procedure: US OB BPP w non-stress BIOPHYSICAL PROFILE: CLINICAL INFORMATION: oligohydramnios COMPARISON: 01/10/2025 There is a single live intrauterine gestation in cephalic presentation.The reported gestational age is 33 weeks 4 days. The heart [id number] beats per minute. FINDINGS: TONE: 1 or [...] Nascimento M.D. 01/17/2025 10:51 AM Dictation Location: [place] [address] Electronically authenticated by: [id number] Y Date: 0:51 Dictated By: Aparna Nascimento M.D. Signed By:01/17/25 1054 DD/ 1051 TD/TT: Internal Controls Analyst: us Yogesh Ally DO [facility] Final Result documented in this encounter Visit Diagnoses Not on filedocumented in this encounter Care Teams Grants And Contracts Assistant Relationship Specialty Start Date End Date Hazel Grady MD [address] [place] [address] PCP - General Family Medicine 07/18/24 documented as of this encounter
--- OUTSIDE RECORDS SUMMARY | 2025-01-27 10:03 | XMS_ITS | Encounter Summary ---
Author Organization [facility] Address [address] [place] [address] Care Team Providers Care Library Serials Assistant Name Role Phone David Awan MD Primary Care Provider Encounter Details Date Type Department Care Team (Late st Contact Info) Description 01/25/2025 Bamboo flowsheet [facility] BCP OB [address] [facility] [place] [address] Cb Canales DO [address] [place] [address] Dr Pepper [place], [facility]11 Social History Tobacco Use Types Packs/Day [...] AM EDT Routine [facility] BCP OB [address] [facility] [place] [place] [address] Maryanne Whiteside PA [address] [facility] [address] [place], [place] [address] documented as of this encounter Visit Diagnoses Not on filedocumented in this encounter Care Teams Library Serials Assistant Relationship Specialty Start Date End Date David Awan MD [address] [place] [address] PCP - General Family Medicine 07/18/24 documented as of this encounter
--- OUTSIDE RECORDS SUMMARY | 2025-01-27 10:03 | XMS_ITS | Encounter Summary ---
Author Organization [facility] Address [address] [place] [address] Care Team Providers Care Florist'S Decorator Name Role Phone David Awan MD Primary Care Provider [phone] Encounter Details Date Type Department Care Team (Late st Contact Info) Description 01/18/2025 External Result Encounter [facility] BCP OB [address] [facility] [place] [address] Yogesh Canales, [address] [facility] [address] [place], [facility] Social History Tobacco Use Types Packs/Day Years [...] AM EDT Routine [facility] BCP OB [address] [facility] [address] Maryanne Whiteside PA [address] [place] [address] documented as of this encounter Procedures Procedure Name Priority Date/Time Associated Diagnosis Comments US OB 14+ WEEKS ANATOMY SCAN 01/18/2025 10:30 AM EDT documented in this encounter Results * US OB 14+ weeks anatomy scan (01/18/2025 10:30 AM EDT) Anatomical Region Laterality Modality Body Ultrasound 01/18/2025 10:3 0 AM EDT Narrative 01/18/2025 10:30 AM EDT THIS EXAM WAS PERFORMED AT [facility] NAME: BROOK CHOI : 2005 SEX: F Accession Number: [id number] ORDERING PHYSICIAN: YOGESH CANALES REFERRING PHYSICIAN: YOGESH CANALES Coding ----- --------- Procedures 78470: Ultrasound, uterus, real time with image documentation, [...] EFW (oz) 14 oz EFW by: Hadlock (TQR-TK-BZ-FL) Extended Tibia 56.1 mm 32w 6d 45% Tj Burlapper 2.0 mm Head / Face / Neck [...] Heart / Thorax RVOT view. LVOT view. 5-coayss-lnqtfjs view. Aortic arch view. Bicaval view. Ductal [...] - 01/18/2025 THIS EXAM WAS PERFORMED AT [facility] NAME: BROOK CHOI : 2005 SEX: F Accession Number: [id number] ORDERING PHYSICIAN: YOGESH CANALES REFERRING PHYSICIAN: YOGESH CANALES Coding ----- --------- Procedures 01184: Ultrasound, uterus, real time with imagedocumentation, and [...] EFW (oz) 14 oz EFW by: Hadlock (MYU-AW-JB-FL) Extended Tibia 56.1 mm 32w 6d 45% Tj Burlapper 2.0 mm Head / Face / Neck [...] Heart / Thorax RVOT view. LVOT view. 3-qcwydr-vpnxcfw view. Aortic archview. Bicaval view. Ductal arch [...] fluid assessment with DVP 4.5 cm and JEORD 8.4 cm. Recommendations ----- --------- anatomic survey [...] on filedocumented in this encounter Care Teams Florist'S Decorator Relationship Specialty Start Date End Date David Awan MD [address] [place] [address] PCP - General Family Medicine 07/18/24 documented as of this encounter
--- OUTSIDE RECORDS SUMMARY | 2025-01-27 10:03 | XMS_ITS | Encounter Summary ---
Author Organization [facility] Address [address] [place] [address] Care Team Providers Care Customer Care Assistant Name Role Phone David Awan MD Primary Care Provider [phone] Encounter Details Date Type Department Care Team (Late st Contact Info) Description 07/18/2024 Abstract [facility] BCP OB [address] [facility] [place] [address] Cb Canales DO [address] [place] [address] Dr [place], [place] [id number] Social History Tobacco Use Types Packs/Day Years [...] AM EDT Routine [facility] BCP OB [address] [facility] [place] [address] Maryanne Whiteside PA [address] [facility] [address] [place], [place] [address] documented as of this encounter Visit Diagnoses Not on filedocumented in this encounter Care Teams Customer Care Assistant Relationship Specialty Start Date End Date David Awan MD [address] [place] [address] PCP - General Family Medicine 07/18/24 documented as of this encounter
--- OUTSIDE RECORDS SUMMARY | 2025-01-27 10:03 | XMS_ITS | Encounter Summary ---
Author Organization [facility] Address [address] [place] [address] Care Team Providers Care Electrical High Tension Tester Name Role Phone Hazel Grady MD Primary Care Provider [phone] Encounter Details Date Type Department Care Team (Late st Contact Info) Description 01/25/2025 Clinisync Result Encounter [facility] External Department Unsolicited Yogesh Canales DO [address] [facility] [address] [place], [place] [address] Social History Tobacco Use Types Packs/Day Years [...] AM EDT Routine [facility]CP [facility] [address] [facility] [place] [address] Maryanne Whiteside PA [address] [facility] [place] [address] documented as of this encounter Procedures Procedure Name Priority Date/Time Associated Diagnosis Comments US OB BPP W NON-STRESS 01/25/2025 3:01 PM EDT documented in this encounter Results * US OB BPP W NON-STRESS (01/25/2025 3:01 PM EDT) Anatomical Region Laterality Modality Other 01/25/2025 3:01 PM EDT Narrative 01/25/2025 3:04 [place] [address] Ultrasound Report Signed Patient: JIMBO DOE MR#: [id number] : 2005 Acct:[id number] Age/Sex: 19 / F ADM Date: 01/25/25 Loc: [facility] Attending Dr: Yogesh Canales D.O. Ordering Physician: Yogesh Canales D.O. Date of Service: 01/25/25 Procedure(s): US OB BPP w non-stress Accession Number(s): [id number] cc: Yogesh Canales D.O.; HAZEL GRADY [place] [address] Patient Name: JIMBO DOE MRN: [id number] date: 2005 Sex: F Assigned Patient Location: [facility] Current Patient Location: Accession/Order Number: [id number] Exam Date: 01/25/2025 14:59 Report Date: 01/25/2025 15:01 At the request of: YOGESH CANALES DO Procedure: US OB BPP w non-stress Biophysical profile. Reason for exam: Oligohydramnios. COMPARISON: BPP 01/24/2025. TECHNIQUE: Transabdominal imaging of the gravid uterus was obtained. FINDINGS: Refrigeration Houseman reports a BPP of 8 out of 8. JEROD is normal 11.4 cm. heart rate 159 bpm. US/US OB BPP w non-stress Impression: BPP 8 out of 8. Impression dictated by: Stanislav Francisco Jr., D.O. 01/25/2025 3:01 PM Dictation Location: [place] [address] Electronically authenticated by: [id number] Y Date: 01/25/2025 15:01 Dictated By: Stanislav Francisco M.D. Signed By: 01/25/25 1504 DD/ 1501 TD/TT: Ornamental Iron Worker: Procedure Note Radiology, Radiologist, MD - 01/25/2025 [place] [address] Ultrasound Report Signed Patient: JIMBO DOE RMR#: [id number] : 2005Acct:[id number] Age/Sex: 19 / FADM Date: 01/25/25 Loc: [facility] Attending Dr: Yogesh Canales D.O. Ordering Physician: Yogesh Canales D.O. Date of Service: 01/25/25 Procedure(s): US OB BPP w non-stress Accession Number(s): [id number] cc: Yogesh Canales D.O.; HAZEL GRADY The [place] [address] Patient Name: JIMBO DOE MRN: [id number] date: 2005 Sex: F Assigned Patient Location: [facility] Current Patient Location: Accession/Order Number: [id number] Exam Date: 01/25/2025 14:59 Report Date: 01/25/2025 15:01 At the request of: YOGESH CANALES DO Procedure: US OB BPP w non-stress Biophysical profile. Reason for exam: Oligohydramnios. COMPARISON: BPP 01/24/2025. TECHNIQUE: Transabdominal imaging of the gravid uterus was obtained. FINDINGS: Refrigeration Houseman reports a BPP of 8 out of 8. JEROD is normal 11.4 cm. heart rate 159 bpm. US/US OB BPP w non-stress Impression: BPP 8 out of 8. Impression dictated by: Stanislav Francisco Jr., D.O. 01/25/2025 3:01 PM Dictation Location: [place] [address] Electronically authenticated by: [id number] Y Date: 5:01 Dictated By: Stanislav Francisco M.D. Signed By:01/25/25 1504 DD/ 1501 TD/TT: Ornamental Iron Worker: us Yogesh Ally DO [facility] Final Result documented in this encounter Visit Diagnoses Not on filedocumented in this encounter Care Teams Electrical High Tension Tester Relationship Specialty Start Date End Date Hazel Grady MD [address] [place] [address] PCP - General Family Medicine 07/18/24 documented as of this encounter
--- OUTSIDE RECORDS SUMMARY | 2025-01-27 10:03 | XMS_ITS | Encounter Summary ---
Author Organization [facility] Address [address] [place] [address] Care Team Providers Care Panel Raiser Operator Name Role Phone Hazel Grady MD Primary Care Provider [phone] Encounter Details Date Type Department Care Team (Late st Contact Info) Description 07/19/2024 Clinisync Result Encounter [facility] External Department Unsolicited Yogesh Canales DO [address] [place], [place] [address] Social History Tobacco Use Types Packs/Day Years [...] AM EDT Routine [facility]CP OB [address] [facility] [place] [address] Maryanne Whiteside PA [address] [facility] [place] [address] documented as of this encounter Procedures Procedure Name Priority Date/Time Associated Diagnosis Comments US OB TRANSVAGINAL 07/19/2024 4: 28 AM EST documented in this encounter Results * US OB TRANSVAGINAL (07/19/2024 4:28 AM EST) Anatomical Region Laterality Modality Other 07/19/2024 4:28 AM EST Narrative 07/19/2024 4:31 [place] [address] Ultrasound Report Signed Patient: JIMBO DOE MR#: [id number] : 2005 Acct:[id number] Age/Sex: 18 / F ADM Date: 07/18/24 Loc: [facility] Attending Dr: Yogesh Canales D.O. Ordering Physician: Yogesh Canales D.O. Date of Service: 07/18/24 Procedure(s): US OB transvaginal Accession Number(s): [id number] cc: Yogesh Canales D.O.; HAZEL GRADY [place] [address] Patient Name: JIMBO DOE MRN: [id number] date: 2005 Sex: F Assigned [facility] Current Patient Location: Accession/Order Number: [id number] Exam Date: 07/18/2024 10:06 Report Date: 07/19/2024 [...] Signed By: 07/19/24 0431 DD/ 0428 TD/TT: Obstetrics Nurse: Procedure Note Radiology, Radiologist, - 07/19/2024 [place] [address] Ultrasound Report Signed Patient: JIMBO DOE RMR#: [id number] : 2005Acct:[id number] Age/Sex: 18 / FADM Date: 07/18/24 Loc: [facility] Attending Dr: Yogesh Canales D.O. Ordering Physician: Yogesh Canales D.O. Date of Service: 07/18/24 Procedure(s): US OB transvaginal Accession Number(s): [id number] cc: Yogesh Canales D.O.; HAZEL GRADY The [place] [address] Patient Name: JIMBO DOE MRN: [id number] date: 2005 Sex: F Assigned Patient [facility]: [facility] Current Patient Location: Accession/Order Number: [id number] Exam Date: 07/18/2024 10:06 Report Date: 07/19/2024 [...] M.D. Signed By:07/19/24 0431 DD/ 0428 TD/TT: Obstetrics Nurse: us Yogesh Canales DO [facility] Final Result documented in this encounter Visit Diagnoses Not on filedocumented in this encounter Care Teams Panel Raiser Operator Relationship Specialty Start Date End Date Hazel Grady MD [address] [place] [address] PCP - General Family Medicine 07/18/24 documented as of this encounter
--- OUTSIDE RECORDS SUMMARY | 2025-01-27 10:03 | XMS_ITS | Encounter Summary ---
Author Organization [facility] Address [address] [facility] [place] [address] Care Team Providers Care Global Compensation Manager Name Role Phone David Awan MD Primary Care Provider [phone] Encounter Details Date Type Department Care Team (Late st Contact Info) Description 01/18/2025 Abstract [facility] BCP OB [address] [facility] [place] [address] Zita Jade MA Social History Tobacco [...] AM EDT Routine [facility] BCP OB [address] [place] [address] Maryanne Whiteside PA [address] [facility] [address] [place], [facility]11 documented as of this encounter Visit Diagnoses Not on filedocumented in this encounter Care Teams Global Compensation Manager Relationship Specialty Start Date End Date David Awan MD [address] [place] [address] PCP - General Family Medicine 07/18/24 documented as of this encounter
--- OUTSIDE RECORDS SUMMARY | 2025-01-27 10:03 | XMS_ITS | Encounter Summary ---
Author Organization [facility] Address [address] [place] [address] Care Team Providers Care Accountant Property Name Role Phone David Awan MD Primary Care Provider Encounter Details Date Type Department Care Team (Late st Contact Info) Description 08/08/2024 Abstract [facility] BCP OB [address] [facility] [place] [address] Cb Canales DO [address] [place] [address] Dr [place], [place] [address] Social History Tobacco Use Types Packs/Day Years [...] AM EDT Routine [facility] BCP OB [address] [facility] [place] [address] Maryanne Whiteside PA [address] [facility] [address] [place], [place] [address] documented as of this encounter Visit Diagnoses Not on filedocumented in this encounter Care Teams Accountant Property Relationship Specialty Start Date End Date David Awan MD [address] [place] [address] PCP - General Family Medicine 07/18/24 documented as of this encounter
--- OUTSIDE RECORDS SUMMARY | 2025-01-27 10:04 | XMS_ITS | CCD ---
Author Organization [facility] Care Team Providers Care Asset Administrator Name Role Phone Almaz Huerta Unavailable HAZEL GRADY Primary Care Unavailable CHRISTIANO TATUM Attending Unavailable CHRISTIANO TATUM Consulting Unavailable CHRISTIANO TATUM Admitting Unavailable Sheree Cheung Unavailable Dom Sarmiento Attending Unavailable Tiesha Flood Unavailable Unavailable Primary Care Provider UnavailHazel Young MD Primary Care Provider Sheree Cheung Primary Care Unavailable Yogesh Canales Attending Unavailable Yogesh Canales Admitting Unavailable AMRYANNE COVARRUBIAS Attending Unavailable MARYANNE COVARRUBIAS Attending Unavailable YOGESH CANALES Attending Unavailable LYNETTE GUNTER Attending Unavailable YOGESH CANALES Attending Unavailable MARYANNE COVARRUBIAS Attending Unavailable ALLYYOGESH NOYOLA Attending Unavailable YOGESH CANALES R Referring Unavailable Allergies Allergy Classification Reported Allergen(s) Allergy Type Date of Onset Reaction(s) Facility (20 sources) Amoxicillin; Translations: [amoxicillin] Drug Allergy 4 swelling, Rash [facility] Repository (1 source) Amoxicillin Drug Allergy 6 [facility] Repository (1 source) Amoxicillin Drug Allergy 4 [facility] Repository Medications Current Medications Medication Drug Class(es) [...] (Phenergan) 12.5 MG tablet Indications: headache, antepartum (HHS-HCC) Take 1 tablet (12.5 mg) by mouth [...] (Original) ondansetron 4 mg disintegrating oral tablet (20 sources) Serotonin-3 Receptor Antagonist Start: 07-18-2024 End: [...] 01-11-2025 Episodic Other and delivery including normal (18 sources) ; Translations: [Encounter for supervision of normal , unspecified, unspecified trimester] 07-18-2024 Episodic Other screening for suspected conditions (not mental disorders or infectious disease) (7 sources) Patient encounter status; Translations: [Encounter for other specified screening] Onset: 01-18-2025 09-21-2024 Episodic Other upper respiratory disease (3 [...] [32 weeks gestation of ] 01-11-2025 Episodic Residual codes; unclassified (2 sources) Gestation period, 34 weeks; Translations: [34 weeks gestation of ] 01-25-2025 Episodic Past or Other Problems Problem Classification Problem Date Documented Da te Episodic/Chronic Administrative/social admission (1 source) Encounter for pre-employment examination Onset: 01-21-2022 Resolved: 01-21-2022 Episodic Results Test Name Value Interpretation Reference Range Facility OB BPP W NON-STRESS on 01-25-2025 [place] [address] Ultrasound Report Signed Patient: FRANCES DOE MR#: [id number] : 2005 Acct:[id number] Age/Sex: 19 / F ADM Date: 01/25/25 Loc: [facility] Attending Dr: Yogesh Canales D.O. Ordering Physician: Yogesh Canales D.O. Date of Service: 01/25/25 Procedure(s): US OB BPP w non-stress Accession Number(s): [id number] cc: Yogesh Canales D.O.; HAZEL GRADY The [address] [address] Patient Name: FRANCES DOE MRN: [facility]:[id number] date: 2005 Sex: F Assigned Patient Location: [facility] Current Patient Location: Accession/Order Number: [id number] Exam Date: 01/25/2025 14:59 Report Date: 01/25/2025 15:01 At the request of: YOGESH CANALES DO Procedure: US OB BPP w non-stress Biophysical profile. Reason for exam: Oligohydramnios. COMPARISON: BPP 01/24/2025. TECHNIQUE: Transabdominal imaging of the gravid uterus was obtained. FINDINGS: Creative Producer reports a BPP of 8 out of 8. JEROD is normal 11.4 cm. heart rate 159 bpm. US/US OB BPP w non-stress Impression: BPP 8 out of 8. Impression dictated by: Stanislav Francisco Jr., D.O. 01/25/2025 3:01 PM Dictation Location: [place] [address] Electronically authenticated by: [id number] Y Date: 01/25/2025 15:01 Dictated By: Stanislav Francisco M.D. Signed By: 01/25/25 1504 DD/ 1501 TD/TT: Geriatric Nurse Practitioner: [facility] Radiology, Radiologist, MD - 01/25/2025 [place] [address] Ultrasound Report Signed Patient: FRANCES DOE MR#: [id number] : 2005 Acct:[id number] Age/Sex: 19 / F ADM Date: 01/25/25 Loc: [facility] Attending Dr: Yogesh Canales D.O. Ordering Physician: Yogesh Canales D.O. Date of Service: 01/25/25 Procedure(s): US OB BPP w non-stress Accession Number(s): [id number] cc: Yogesh Canales D.O.; HAZEL GRADY The [place] [address] Patient Name: FRANCES DOE MRN: [facility]:[id number] date: 2005 Sex: F Assigned Patient Location: [facility] Current Patient Location: Accession/Order Number: [id number] Exam Date: 01/25/2025 14:59 Report Date: 01/25/2025 15:01 At the request of: YOGESH CANALES DO Procedure: US OB BPP w non-stress Biophysical profile. Reason for exam: Oligohydramnios. COMPARISON: BPP 01/24/2025. TECHNIQUE: Transabdominal imaging of the gravid uterus was obtained. FINDINGS: Creative Producer reports a BPP of 8 out of 8. JEROD is normal 11.4 cm. heart rate 159 bpm. US/US OB BPP w non-stress Impression: BPP 8 out of 8. Impression dictated by: Stanislav Francisco Jr., D.O. 01/25/2025 3:01 PM Dictation Location: [place] [address] Electronically authenticated by: [id number] Y Date: 01/25/2025 15:01 Dictated By: Stanislav Francisco M.D. Signed By: 01/25/25 1504 DD/ 1501 TD/TT: Geriatric Nurse Practitioner: [facility] Radiology Study observation (narrative) [facility] US OB BPP W NON-STRESS Ordered By: Radiologist Radiology on 01-25-2025 [facility] [employer] Work Phone: Urinalysis macro (dipstick) panel (U)on 01-25-2025 Bilirubin, UA Negative Negative - 4(70) +++ mg/dL [facility] Blood, UA Negative Negative - 50 Sam/mcL [facility] Clarity, UA Clear [facility] Color, UA Yellow [facility] [employer] [employer] Glucose, UA Negative Negative - 1999(110) ++++ mg/dL [facility] Interpretation and review of laboratory results Normal [facility] [employer] Ketones, UA Negative Negative - 160(16) ++++ mg/dL [facility] Leukocytes, UA Moderate Negative - 500+++ Supa/mcL [facility] Nitrite, UA Negative Negative - Positive [facility] pH, UA 7 5 - 9 [facility] [employer] Protein, UA Trace Negative - 1999(20) ++++ mg/dL [facility] Spec Grav, UA 1.015 1 - 1.03 [facility] Urobilinogen, UA 0.2 0.2 - 12 mg/dL [facility] US OB BPP W NON-STRESS on 01-24-2025 [place] [address] Ultrasound Report Signed Patient: FRANCES DOE MR#: [id number] : 2005 Acct:[id number] Age/Sex: 19 / F ADM Date: 01/24/25 Loc: [facility] 250-[address]: Yogesh Canales D.O. Ordering Physician: Yogesh Canales D.O. Date of Service: 01/24/25 Procedure(s): US OB BPP w non-stress Accession Number(s): [id number] cc: Yogesh Canales D.O.; HAZEL GRADY The [place] [address] Patient Name: FRANCES DOE MRN: [facility]:[id number] date: 2005 Sex: F Assigned Patient Location: [facility] Current Patient Location: [facility] Accession/Order Number: [id number] Exam Date: 01/24/2025 10:33 Report Date: 01/24/2025 [...] Nascimento M.D. 01/24/2025 10:38 AM Dictation Location: [place] [address] Electronically authenticated by: [id number] Y Date: 01/24/2025 10:38 Dictated By: Aparna Nascimento M.D. Signed By: 01/24/25 1041 DD/ 1038 TD/TT: Geriatric Nurse Practitioner: [facility] Radiology, Radiologist, MD - 01/24/2025 [place] [address] Ultrasound Report Signed Patient: FRANCES DOE MR#: [id number] : 2005 Acct:[id number] Age/Sex: 19 / F ADM Date: 01/24/25 Loc: [place] [address]-[address]: Yogesh Canales D.O. Ordering Physician: Yogesh Canales D.O. Date of Service: 01/24/25 Procedure(s): US OB BPP w non-stress Accession Number(s): [id number] cc: Yogesh Canales D.O.; HAZEL GRADY The [place] [address] Patient Name: FRANCES DOE MRN: [facility]:[id number] date: 2005 Sex: F Assigned Patient Location: [facility] Current Patient Location: [facility] Accession/Order Number: [id number] Exam Date: 01/24/2025 10:33 Report Date: 01/24/2025 [...] Nascimento M.D. 01/24/2025 10:38 AM Dictation Location: [place] [address] Electronically authenticated by: [id number] Y Date: 01/24/2025 10:38 Dictated By: Aparna Nascimento M.D. Signed By: 01/24/25 1041 DD/ 1038 TD/TT: Geriatric Nurse Practitioner: [facility] [employer] Radiology Study observation (narrative) [facility] US OB BPP W NON-STRESS Ordered By: Radiologist Radiology on 01-24-2025 [facility] [employer] Work Phone: US OB BPP W NON-STRESS on 01-17-2025 [place] [address] Ultrasound Report Signed Patient: FRANCES DOE MR#: [id number] : 2005 Acct:[id number] Age/Sex: 19 / F ADM Date: 01/17/25 Loc: [facility] 254-[address]: Yogesh Canales D.O. Ordering Physician: Yogesh Canales D.O. Date of Service: 01/17/25 Procedure(s): US OB BPP w non-stress Accession Number(s): [id number] cc: Yogesh Canales D.O.; HAZEL GRADY The [place] [address] Patient Name: FRANCES DOE MRN: [facility]:[id number] date: 2005 Sex: F Assigned Patient Location: [facility] Current Patient Location: [facility] Accession/Order Number: [id number] Exam Date: 01/17/2025 10:50 Report Date: 01/17/2025 10:51 At the request of: YOGESH CANALES DO Procedure: US OB BPP w non-stress BIOPHYSICAL PROFILE: CLINICAL INFORMATION: oligohydramnios COMPARISON: 01/10/2025 There is a single live intrauterine gestation in cephalic presentation. The reported gestational age is 33 weeks 4 days. The heart rate [id number] beats per minute. FINDINGS: TONE: 1 or [...] Nascimento M.D. 01/17/2025 10:51 AM Dictation Location: [place] [address] Electronically authenticated by: [id number] Y Date: 01/17/2025 10:51 Dictated By: Aparna Nascimento M.D. Signed By: 01/17/25 1054 DD/ 1051 TD/TT: Geriatric Nurse Practitioner: [facility] Radiology, Radiologist, MD - 01/17/2025 [place] [address] Ultrasound Report Signed Patient: FRANCES DOE MR#: [id number] : 2005 Acct:[id number] Age/Sex: 19 / F ADM Date: 01/17/25 Loc: [facility] 254-[address]: Yogesh Canales D.O. Ordering Physician: Yogesh Canales D.O. Date of Service: 01/17/25 Procedure(s): US OB BPP w non-stress Accession Number(s): [id number] cc: Yogesh Canales D.O.; HAZEL GRADY [address] [address] Patient Name: FRANCES DOE MRN: [facility]:[id number] date: 2005 Sex: F Assigned Patient Location: [facility] Current Patient Location: [facility] Accession/Order Number: [id number] Exam Date: 01/17/2025 10:50 Report Date: 01/17/2025 10:51 At the request of: YOGESH CANALES DO Procedure: US OB BPP w non-stress BIOPHYSICAL PROFILE: CLINICAL INFORMATION: oligohydramnios COMPARISON: 01/10/2025 There is a single live intrauterine gestation in cephalic presentation. The reported gestational age is 33 weeks 4 days. The heart rate [id number] beats per minute. FINDINGS: TONE: 1 or [...] Nascimento M.D. 01/17/2025 10:51 AM Dictation Location: [place] [address] Electronically authenticated by: [id number] Y Date: 01/17/2025 10:51 Dictated By: Aparna Nascimento M.D. Signed By: 01/17/25 1054 DD/ 1051 TD/TT: Geriatric Nurse Practitioner: [facility] Radiology Study observation (narrative) [facility] OB BPP W NON-STRESS Ordered By: Radiologist Radiology on 01-17-2025 [facility] Work Phone: ALL CBC WITH AUTO DIFFon BASOPHILS ABSOLUTE AUTO 0 [facility] Basophils/100 WBC (Bld) 0.1 % Low 0.2 [...] 14.2 % Low 20.5 - 60.0 % [facility] MCH (RBC) [Entitic mass] 27.2 pg [...] e [facility] US OB BPP W NON-STRESS on 01-10-[address] [address] Ultrasound Report Signed Patient: FRANCES DOE MR#: [id number] : 2005 Acct:[id number] Age/Sex: 19 / F ADM Date: 01/10/25 Loc: [facility] 250-[address]: Yogesh Canales D.O. Ordering Physician: Yogesh Canales D.O. Date of Service: 01/10/25 Procedure(s): US OB BPP w non-stress Accession Number(s): [id number] cc: Yogesh Canales D.O.; HAZEL GRADY [place] [address] Patient Name: FRANCES DOE MRN: [id number] date: 2005 Sex: F Assigned Patient Location: [facility] Current Patient Location: [facility] Accession/Order Number: [id number] Exam Date: 01/10/2025 10:39 Report Date: 01/10/2025 10:44 At the request of: YOGESH CANALES DO Procedure: US OB BPP w non-stress BIOPHYSICAL PROFILE: CLINICAL INFORMATION: OLIGOHYDRAMNIOS O41.09X1 COMPARISON: 01/03/2025 There is a single live intrauterine gestation in cephalic presentation. The reported gestational age is 32 weeks 4 days. The heart rate [id number] beats per minute. FINDINGS: TONE: 1 or [...] 01/10/2025 10:44 AM Dictation Location: [place] [address] Electronically authenticated by: [id number] Y Date: 01/10/2025 10:44 Dictated By: Aparna Nascimento M.D. Signed By: 01/10/25 1047 DD/ 1044 TD/TT: Geriatric Nurse Practitioner: [facility] Radiology, Radiologist, - 01/10/2025 [place] [address] Ultrasound Report Signed Patient: FRANCES DOE MR#: [id number] : 2005 Acct:[id number] Age/Sex: 19 / F ADM Date: 01/10/25 Loc: [facility] 250-[address]: Yogesh Canales D.O. Ordering Physician: Yogesh Canales D.O. Date of Service: 01/10/25 Procedure(s): US OB BPP w non-stress Accession Number(s): [id number] cc: Yogesh Canales D.O.; HAZEL GRADY The [place] [address] Patient Name: FRANCES DOE MRN: [facility]:[id number] date: 2005 Sex: F Assigned Patient Location: [facility] Current Patient Location: [facility] Accession/Order Number: [id number] Exam Date: 01/10/2025 10:39 Report Date: 01/10/2025 10:44 At the request of: YOGESH CANALES DO Procedure: US OB BPP w non-stress BIOPHYSICAL PROFILE: CLINICAL INFORMATION: OLIGOHYDRAMNIOS O41.09X1 COMPARISON: 01/03/2025 There is a single live intrauterine gestation in cephalic presentation. The reported gestational age is 32 weeks 4 days. The heart rate ilyodfxu061 beats per minute. FINDINGS: TONE: 1 or [...] 01/10/2025 10:44 AM Dictation Location: [place] [address] Electronically authenticated by: [id number] Y Date: 01/10/2025 10:44 Dictated By: Aparna Nascimento M.D. Signed By: 01/10/25 1047 DD/ 1044 TD/TT: Geriatric Nurse Practitioner: [facility] Radiology Study observation (narrative) [facility] US OB BPP W NON-STRESS Ordered By: Radiologist Radiology on 01-10-2025 [facility] [employer] Work Phone: AMNISUREon 01-06-2025 [facility] AMNISURE Negative NEGATIVE [facility] are [facility] US OB BPP W NON-STRESS on 01-03-2025 [place] [address] Ultrasound Report Signed Patient: FRANCES DOE MR#: [id number] : 2005 Acct:[id number] Age/Sex: 19 / F ADM Date: 01/03/25 Loc: [facility] 251-[address]: Yogesh Canales D.O. Ordering Physician: Yogesh Canales D.O. Date of Service: 01/03/25 Procedure(s): US OB BPP w non-stress Accession Number(s): [id number] cc: Yogesh Canales D.O.; HAZEL GRADY The [address] [address] Patient Name: FRANCES DOE MRN: [id number] date: 2005 Sex: F Assigned Patient Location: [facility] Current Patient Location: [facility] Accession/Order Number: [id number] Exam Date: 01/03/2025 10:37 Report Date: 01/03/2025 10:43 At the request of: YOGESH CANALES DO Procedure: US OB BPP w non-stress BIOPHYSICAL PROFILE: CLINICAL INFORMATION: Oligohydramnios O41.03x1 COMPARISON: 07/18/2024 There is a single live intrauterine gestation in cephalic presentation. The reported gestational age is 31 weeks 4 days. The heart rate [id number] beats per minute. FINDINGS: TONE: 1 or [...] Nascimento M.D. 01/03/2025 10:43 AM Dictation Location: [place] [address] Electronically authenticated by: [id number] Y Date: 01/03/2025 10:43 Dictated By: Aparna Nascimento M.D. Signed By: 01/03/25 1046 DD/ 1043 TD/TT: Geriatric Nurse Practitioner: [facility] Radiology, Radiologist, - 01/03/2025 [place] [address] Ultrasound Report Signed Patient: FRANCES DOE MR#: [id number] : 2005 Acct:[id number] Age/Sex: 19 / F ADM Date: 01/03/25 Loc: [facility] 251-[address]: Yogesh Canales D.O. Ordering Physician: Yogesh Canales D.O. Date of Service: 01/03/25 Procedure(s): US OB BPP w non-stress Accession Number(s): [id number] cc: Yogesh Canales D.O.; HAZEL GRADY [place] [address] Patient Name: FRANCES DOE MRN: [facility]:[id number] date: 2005 Sex: F Assigned Patient Location: [facility] Current Patient Location: [facility] Accession/Order Number: [id number] Exam Date: 01/03/2025 10:37 Report Date: 01/03/2025 10:43 At the request of: YOGESH CANALES DO Procedure: US OB BPP w non-stress BIOPHYSICAL PROFILE: CLINICAL INFORMATION: Oligohydramnios O41.03x1 COMPARISON: 07/18/2024 There is a single live intrauterine gestation in cephalic presentation. The reported gestational age is 31 weeks 4 days. The heart rate [id number] beats per minute. FINDINGS: TONE: 1 or [...] Nascimento M.D. 01/03/2025 10:43 AM Dictation Location: [place] [address] Electronically authenticated by: [id number] Y Date: 01/03/2025 10:43 Dictated By: Aparna Nascimento M.D. Signed By: 01/03/25 1046 DD/ 104 TD/TT: Geriatric Nurse Practitioner: [facility] Radiology Study observation (narrative) [facility] US OB BPP W NON-STRESS Ordered By: Radiologist Radiology on 01-03-2025 [facility] [employer] Work Phone: US OB FOLLOW UP [...] II, MD, PHD at 29-Dec-2024 12:17:39 PM [facility] Normal Not Available Comment on above: Order Comment: US OB SCAN FOR GROWTH Estimated Date of Delivery: 03/03/25 Gestational Age as of 12/06/2024: 27w4d Urinalysis macro (dipstick) panel (U)on 12-28-2024 Bilirubin, UA Negative Negative - 4(70) +++ mg/dL [facility] Blood, UA Negative Negative - 50 Sam/mcL [facility] Clarity, UA Clear [facility] Color, UA Yellow [facility] Glucose, UA Negative Negative - 2000(110) ++++ mg/dL [facility] Interpretation and review of laboratory results Abnormal [facility] Ketones, UA Negative Negative - 160(16) ++++ mg/dL [facility] Leukocytes, UA Positive Negative - 500+++ Supa/mcL [facility] Comment on above: small Nitrite, UA Negative Negative - Positive [facility] pH, UA 7 5 - 9 [facility] e Protein, UA Positive Negative - 1999(20) ++++ mg/dL [facility] Comment on above: 30mg/dL Spec Grav, UA 1.015 1 - 1.03 [facility] Urobilinogen, UA 0.2 0.2 - 12 mg/dL [facility] ALL CBC WITH AUTO DIFFon BASOPHILS ABSOLUTE AUTO 0 [facility] Basophils/100 WBC (Bld) 0.2 % 0.2 - 2.0 % [facility] Eosinophils/100 WBC (Bld) 0.4 % Low 0.9 - 7.0 % [facility] Erythrocyte distribution width (RBC) [Ratio] 12.7 % 11.0 - 15.0 % [facility] Hematocrit (Bld) [Volume fraction] 34 % Low 36.0 - 48.0 % [facility] e Hemoglobin (Bld) [Mass/Vol] 11.5 g/dL Low 12.0 - 16.0 g/dL [facility] IMMATURE GRANULOCYTES ABS AUTO 0.06 High [facility] Immature granulocytes/100 WBC (Bld) 0.5 % 0.0 - 0.5 % [facility] Interpretation and review of laboratory results Abnormal [facility] re LYMPHOCYTES ABSOLUTE AUTO 2.5 [facility] Lymphocytes/100 WBC (Bld) 19.6 % Low 20.5 - 60.0 % [facility] MCH (RBC) [Entitic mass] 28 pg 26.7 - 34.0 pg [facility] MCHC (RBC) [Mass/Vol] 33.8 g/dL 29.9 - 35.2 g/dL [facility] MCV (RBC) [Entitic vol] 82.7 fL 81.0 - 99.0 fL [facility] MONOCYTES ABSOLUTE AUTO 0.8 [facility] Monocytes/100 WBC (Bld) 6.5 % 1.7 - 12.0 % [facility] NEUTROPHILS ABSOLUTE AUTO 9.3 High [facility] Neutrophils/100 WBC (Bld) 72.8 % 43.0 - 75.0 % [facility] Platelet mean volume (Bld) [Entitic vol] 9.5 fL 9.5 - 13.5 fL [facility] TBH EO # 0.1 [facility] e TB PLT [address] [facility] TB RBC 4.11 Low [facility] TB WBC 12.7 High [facility] TBH UA (CLEAN/CATCH) RN HEMODIALYSIS/TARSHA RO IF IND.on 12-15-2024 BILIRUBIN URINE Negative NEGATIVE [facility]care BLOOD URINE Negative NEGATIVE [facility] Clarity (U) CLEAR CLEAR [facility] Color (U) LT. YELLOW YELLOW [facility] GLUCOSE URINE UA Negative NEGATIVE mg/dL [facility] Interpretation and review of laboratory results Abnormal [facility] Ketones Ql (U) Negative NEGATIVE mg/dL [facility] Leukocyte esterase Test strip Ql (U) LARGE Abnormal NEGATIVE [facility] NITRITE URINE Negative NEGATIVE [facility] pH (U) 7.0 [pH] 5.0 - 9.0 [facility] PROTEIN URINE Negative NEG/TRACE mg/dL [facility] SPECIFIC GRAVITY URINE <=1.005 Abnormal 1.005 - 1.025 [facility] URINE MICROSCOPIC INDICATED YES [facility] UROBILINOGEN URINE 0.2 EU/dL 0.2 - 1.0 EU/dL [facility] Urinalysis macro (dipstick) panel (U)on 12-06-2024 Bilirubin, UA Negative Negative - 4(70) +++ mg/dL [facility] Blood, UA Negative Negative - 50 Sam/mcL [facility] Clarity, UA Clear [facility] Color, UA Yellow [facility] e Glucose, UA Negative Negative - 1999(110) ++++ mg/dL [facility] Interpretation and review of laboratory results Abnormal [facility] Ketones, UA Positive Negative - 160(16) ++++ mg/dL [facility] Comment on above: trace Leukocytes, UA Trace Negative - 500+++ Supa/mcL [facility] Nitrite, UA Negative Negative - Positive [facility] pH, UA 5.5 5 - 9 [facility] Protein, UA Negative Negative - 1999(20) ++++ mg/dL [facility] Spec Grav, UA 1.03 1 - 1.03 [facility] Urobilinogen, UA 0.2 0.2 - 12 mg/dL [facility] ALL CBC WITH AUTO DIFFon BASOPHILS ABSOLUTE AUTO 0 [facility] Basophils/100 WBC (Bld) 0.2 % 0.2 - 2.0 % [facility] Eosinophils/100 WBC (Bld) 0.3 % Low 0.9 - 7.0 % [facility] Erythrocyte distribution width (RBC) [Ratio] 12.8 % 11.0 - 15.0 % [facility] Hematocrit (Bld) [Volume fraction] 34 % Low 36.0 - 48.0 % [facility] Hemoglobin (Bld) [Mass/Vol] 11.2 g/dL Low 12.0 - 16.0 g/dL [facility] IMMATURE GRANULOCYTES ABS AUTO 0.05 High [facility] Immature granulocytes/100 WBC (Bld) 0.4 % 0.0 - 0.5 % [facility] Interpretation and review of laboratory results Abnormal [facility] LYMPHOCYTES ABSOLUTE AUTO 2.1 [facility] Lymphocytes/100 WBC (Bld) 17.3 % Low 20.5 - 60.0 % [facility] MCH (RBC) [Entitic mass] 27.7 pg 26.7 - 34.0 pg [facility] MCHC (RBC) [Mass/Vol] 32.9 g/dL 29.9 - 35.2 g/dL [facility] MCV (RBC) [Entitic vol] 84 fL 81.0 - 99.0 fL [facility] MONOCYTES ABSOLUTE AUTO 0.8 [facility] Monocytes/100 WBC (Bld) 6.6 % 1.7 - 12.0 % [facility] NEUTROPHILS ABSOLUTE AUTO 8.9 High [facility] Neutrophils/100 WBC (Bld) 75.2 % High 43.0 - 75.0 % [facility] Platelet mean volume (Bld) [Entitic vol] 9.1 fL Low 9.5 - 13.5 fL [facility] TBH EO # 0 [facility] TBH PLT 281 [facility] TBH RBC 4.05 Low [facility] TBH WBC 11.8 High [facility] CLINISYNC [facility] e US OB LIMITED 1+ [...] II, MD, PHD at 17-Nov-2024 06:24:10 AM [facility] Normal Not Available Comment on above: Order Comment: US OB INCOMPLETE ANATOMY Estimated Date of Delivery: 03/03/25 Gestational Age as of 11/01/2024: 22w4d Urinalysis macro (dipstick) panel (U)on 11-15-2024 Bilirubin, UA Negative Negative - 4(70) +++ mg/dL [facility] Blood, UA Negative Negative - 50 Sam/mcL [facility] Clarity, UA Clear [facility] Color, UA Yellow [facility] Glucose, UA Negative Negative - 1999(110) ++++ mg/dL [facility] Interpretation and review of laboratory results Abnormal [facility] Ketones, UA Negative Negative - 160(16) ++++ mg/dL [facility] Leukocytes, UA Trace Negative - 500+++ Supa/mcL [facility] Nitrite, UA Negative Negative - Positive [facility] pH, UA 6.5 5 - 9 [facility] Protein, UA Trace Negative - 1999(20) ++++ mg/dL [facility] Spec Grav, UA 1.02 1 - 1.03 [facility] Urobilinogen, UA 0.2 0.2 - 12 mg/dL [facility] Urinalysis macro (dipstick) panel (U)on 10-18-2024 Bilirubin, UA Negative Negative - 4(70) +++ mg/dL [facility] Blood, UA Negative Negative - 50 Sam/mcL [facility] Clarity, UA Clear [facility] Color, UA Yellow [facility] Glucose, UA Negative Negative - 1999(110) ++++ mg/dL [facility] Interpretation and review of laboratory results Normal [facility] Ketones, UA Negative Negative - 160(16) ++++ mg/dL [facility] Leukocytes, UA Negative Negative - 500+++ Supa/mcL [facility] Nitrite, UA Negative Negative - Positive [facility] pH, UA 6 5 - 9 [facility] Protein, UA Negative Negative - 1999(20) ++++ mg/dL [facility] Spec Grav, UA 1.03 1 - 1.03 [facility] Urobilinogen, UA 0.2 0.2 - 12 mg/dL [facility] RECURRENT VAGINITIS (HTRX)on 09-23-2024 ATOPOBIUM VAGINAE 21.[address] [facility]care ATOPOBIUM VAGINAE Detected Abnormal [facility] BVAB 2,3 (BACTERIAL VAGINOSIS ASSOCIATED BACTERIA 2, 3); MOBILUNCUS SPP 14.391 Abnormal [facility] BVAB 2,3 (BACTERIAL VAGINOSIS ASSOCIATED BACTERIA 2, 3); MOBILUNCUS SPP Detected Abnormal [facility] WILBERT ALBICANS, PARAPSILOSIS, TROPICALIS 0 [facility] WILBERT ALBICANS, PARAPSILOSIS, TROPICALIS Not detected [facility] WILBERT GLABRATA 0 [facility] Hea lthcare WILBERT GLABRATA Not detected [facility] ealthcare WILBERT KRUSEI 0 [facility]I [facility] detected [facility] CHLAMYDIA TRACHOMATIS 0 [facility] CHLAMYDIA TRACHOMATIS Not detected [facility] ERMB, C; MEFA 22.056 Abnormal [facility] ERMB, C; MEFA Detected Abnormal [facility] GARDNERELLA VAGINALIS 27.529 Abnormal [facility] GARDNERELLA VAGINALIS Detected Abnormal [facility] Interpretation and review of laboratory results Abnormal [facility] MEGASPHAERA (TYPES 1, 2) 15.923 Abnormal [facility] MEGASPHAERA (TYPES 1, 2) Detected Abnormal [facility] MYCOPLASMA GENITALIUM 0 [facility] MYCOPLASMA GENITALIUM Not detected [facility] NEISSERIA GONORRHOEAE 0 [facility] NEISSERIA GONORRHOEAE Not detected [facility] TET B, TET M 16.766 Abnormal [facility] Healthc are TET B, TET M Detected Abnormal [facility] TRICHOMONAS VAGINALIS 0 [facility] TRICHOMONAS VAGINALIS Not detected [facility] GLUCOSE 1 HOURon 09-22-2024 Glucose [Mass/Vol] 114 mg/dL NINF - 13 0 mg/dL [facility] CLINISYNC [facility] Health[facility] e US OB 14+ WEEKS [...] II, MD, PHD at 19-Oct-2024 09:01:31 AM [facility] Normal Not Available Comment on above: Order Comment: US OB ANATOMY SINGLE W US OB CERVICAL LENGTH Estimated Date of Delivery: 03/03/25 Gestational Age as of 09/21/2024: 16w5d Urinalysis macro (dipstick) panel (U)Ordered By: Vicky Rodríguez on 09-21-2024 Bilirubin, UA Negative Negative - 4(70) +++ mg/dL [facility] Blood, UA Negative Negative - 50 Sam/mcL [facility] Healthcare Clarity, UA Clear [facility] Color, UA Yellow [facility] Glucose, UA Negative Negative - 1999(110) ++++ mg/dL [facility] Interpretation and review of laboratory results Normal [facility] Ketones, UA Negative Negative - 160(16) ++++ mg/dL [facility] Healthcare Leukocytes, UA Negative Negative - 500+++ Supa/mcL [facility] Nitrite, UA Negative Negative - Positive [facility] pH, UA 7.5 5 - 9 [facility] Protein, UA Negative Negative - 1999(20) ++++ mg/dL [facility] Healthcare Spec Grav, UA 1.02 1 - 1.03 [facility] Urobilinogen, UA 0.2 0.2 - 12 mg/dL [facility] Urinalysis macro (dipstick) panel (U)on 08-17-2024 Bilirubin, UA Negative Negative - 4(70) +++ mg/dL [facility] Blood, UA Negative Negative - 50 Sam/mcL [facility] Healthcare Clarity, UA Clear [facility] Color, UA Yellow [facility] e Glucose, UA Negative Negative - 1999(110) ++++ mg/dL [facility] Interpretation and review of laboratory results Abnormal [facility] Ketones, UA Negative Negative - 160(16) ++++ mg/dL [facility] Healthcare Leukocytes, UA Positive Negative - 500+++ Supa/mcL [facility] Healthcare Comment on above: small Nitrite, UA Negative Negative - Positive [facility] Healthcare pH, UA 6 5 - 9 [facility] Protein, UA Negative Negative - 1999(20) ++++ mg/dL [facility] Healthcare Spec Grav, UA 1.03 1 - 1.03 [facility] Urobilinogen, UA 0.2 0.2 - 12 mg/dL [facility] MLR HEMOGLOBIN A1Con 12-28-2 024 Glucose [Mass/Vol] 111 mg/dL [facility] H ealthcare HbA1c (Bld) [Mass fraction] 5.5 % 4.5 - 6.2 % [facility] Comment on above: ADA RECOMMENDED LIMI T 4.0 - 6.0 ADA THERAPEUTIC TARGET < 7.0 ACTION SUGGESTED > 7.0 [facility] Urine Cultureon 08-05-2024 Bacteria identified Cx Nom (U) <9,000 colonies/ml mixed bacterial skin contaminants 2 Days PERFORMED BY: [facility] [address] [place] [address] PATHOLOGIST FORESTRY TECHNICIAN ELICEO SPENCER M.D. Normal [facility] Comment on above: Performed By: #### C UU #### [facility] [address] HCG ( test) Ql (U)o n 07-18-2024 Interpretation and review of laboratory results Abnormal [facility] Healt[facility] re Preg Test, Ur Positive Negative [facility] Urinalysis macro (dipstick) panel (U)on 07-18-2024 Bilirubin, UA Negative Negative - 4(70) +++ mg/dL [facility] Blood, UA Negative Negative - 50 Sam/mcL [facility] Clarity, UA Clear [facility]alt[facility] re Color, UA Yellow [facility] [employer] e Glucose, UA Negative Negative - 1999(110) ++++ mg/dL [facility] Interpretation and review of laboratory results Normal [facility] re Ketones, UA Negative Negative - 160(16) ++++ mg/dL [facility] Leukocytes, UA Negative Negative - 500+++ Supa/mcL [facility] Nitrite, UA Negative Negative - Positive [facility] pH, UA 6.5 5 - 9 [facility] Protein, UA Negative Negative - 1999(20) ++++ mg/dL [facility] Spec Grav, UA 1.02 1 - 1.03 [facility] Urobilinogen, UA 0.2 0.2 - 12 mg/dL [facility] TBH PREG QUANT HCGon 06-26- 024 HCG QUANTITATIVE 203 mIU/mL [facility] Hea lthcare Comment on above: 5-50 0.2-1 WEEK 50-500 1-2 WEEKS 100-5,000 2-3 WEEKS 500-10,000 3-4 WEEKS 1,000-50,000 4-5 WEEKS 10,000-100,000 5-6 WEEKS 15,000-200,000 6-8 WEEKS 10,000-100,000 2-3 MONTHS CLIN[facility] Quick Strepon 09-17-2023 S. pyogenes Org specific cx Ql (Throat) positve [facility] Other Quick Strep [facility] Other Test, Urineon 08-11 Beta HCG ( test) Ql (U) Negative [facility] Other Capillary Glucose POCon Glucose [Mass/Vol] 94 mg/dL Normal 55-99 [facility] Comment on above: Result Comment: Loretta mcneal RN/ Performed By: #### 2 [id number] #### [facility] Laboratory [address] [place] [address] Consent for Treatmenton Consent for Treatment [id number] [facility] Discharge Instructionson Discharge Instructions [id number] [facility] ED Clinical Summaryon 2022 ED Clinical Summary [address] [address] ED Clinical Summary Person Information Name: FRANCES DOE/[facility]_Franco Age: 17 Years : 2005 Sex: Female Language: Equ[place]inean PCP: Hazel Grady MD Marital Status: Single [...] 07/14/2023 03:42:20 07/14/2023 03:42:20 07/14/2023 03:42:20 ADDRESS: [address] [place] [address] DR MONSERRAT Berg [facility] [id number] PHYS DOC NOTES: MEDICAL INFORMATION: Prescriptions Given: New Medications [id number], [address], [place] [id number], [phone] azithromycin (azithromycin 250 mg Tab) 1 Tablets By Mouth every day for 4 Days. Refills: 0. PATIENT EDUCATION INFORMATION: Instructions: Viral Illness, Adult; Otitis Media, Adult Follow up: With: Address: When: Hazel Grady [address] [place] [address] Business (2) In 7 days 07/21/2023 DIAGNOSIS: AOM (acute otitis media); Viral illness Normal [facility] ED Note-Physicianon 07-14-20 ED Note-Physician Basic [...] and Complexity of Problems Differential Diagnosis: [] [facility] Data External documents reviewed: N/A [...] day(s), # 4 tab(s), Refills(s) 0, Pharmacy: [id number], 175, cm, 07/13/23 23:42:00 EST, Height/Length Dosing, 121.7, kg, 07/13/23 23:42:00 EST, Weight Dosing Capillary Glucose POC Influenza A&B Ag Rapid COVID Antigen ([facility]) Resp.syn.virus (Rsv) XR Chest Single View Disposition Plan Discharge Prescription List Prescriptions azithromycin 250 mg Tab, 250 mg= 1 tab(s), Oral, Daily Follow-up With When Contact Information Hazel Grady In 7 days 07/21/2023 [address] [place] [address] [facility] (2) Additional Instructions: Patient [...] 94 mg/dL (07/14/23 02:00:00) POC Device SN: [id number] (07/14/23 02:00:00) POC User ID: [id number] (07/14/23 02:00:00) POC Username: POC Username (07/14/23 [...] DO 07/14/2023 01:56:[address] [facility] Comment on above: Result Comment: Elec [...] Follow these instructions at home: ? Take alzc-jsm-lxrorub and prescription medicines only as told by [...] provider. Document Revised: 11/03/2021 Document Reviewed: 11/03/2021 [employer] Patient Education ? 2022 [employer] Infectious Disease Viral Illness, Adult Viruses [...] content not included)... Normal [facility] ED Patient Summaryon 023 ED Patient Summary [address] [address] Patient Discharge Instructions Person Information Name: FRANCES DOE Age: 17 Years Arrival Date: 07/13/2023 23:32:13 Discharge Diagnosis: AOM (acute otitis media); Viral illness Primary Care Physician: Hazel Grady MD Provider Information Primary Provider: Dom Sarmiento DO Advanced Grounds Keeper:None The exam and treatment you received in the Emergency Department were for an urgent problem and are not intended as complete care. It is important that you follow up with a doctor, nurse practitioner, or physician?s lead assistant manager for ongoing care. If your symptoms [...] Follow-up Instructions: With: Address: When: Hazel Grady [facility] [place] [address] [address] [facility] (2) In 7 days 07/21/2023 In the event that this physician does not participate in your insurance network, please consult with your insurance company to find a nearby participating provider. Patient Education Materials: Viral Illness, Adult; Otitis Media, Adult A MESSAGE TO ALL PATIENTS REGARDING OPIOIDS PRESCRIPTION OPIOIDS: WHAT YOU NEED TO KNOW Prescription opioids can be used to help relieve jhalanla-ga-gwrkph pain and are often prescribed following a [...] be struggling with addiction, tell your health day care provider and ask for guidance or call [facility]S National Helpline at 3-291-476-VMGI. (more content not included)... Normal [facility] Influenza A&B Agon 3 Influenzae A Ag Negative Normal Negative [facility] Comment on above: Performed By: #### 2 [id number] #### [facility] Laboratory [address] [place] [address] Influenzae B Ag Negative Normal Negative [facility] Comment on above: Result Comment: Test sensitivity and specificity vary for age group, specimen type, antigen types, and prevalence of disease. Test results must be evaluated in conjunction with other clinical data available to the physician. Individuals who received nasally administered Influenza A vaccine may have positive test results up to 3 days after vaccination. Performed By: #### 2 [id number] #### [facility] Laboratory [address] [place] [address] Prescriptions/Work Noteson 1 09-14-2022 Prescriptions/Work Notes [id number] [facility] Rapid COVID Antigen ([facility])on 07-14-2023 Rapid COV Int NEG Ctl Pass [facility] Comment on above: Performed By: #### 2 [id number] #### [facility] Laboratory [address] [place] [address] Rapid COV Int POS Ctl Pass Normal [facility] Comment on above: Performed By: #### 2 [id number], [id number] #### [facility] Laboratory [address] [place] [address] SARS-CoV+SARS-CoV-2 (COVID-19) Ag IA.rapid Ql (Resp) Not detected Normal Not Detected [facility] Comment on above: Result Comment: The [employer] Street[employer]? System for Rapid Detection of SARS-CoV-2 is [...] or revoked sooner. Performed By: #### 2 [id number] #### [facility] Laboratory [address] [place] [address] Resp.syn.virus (Rsv)on 07-14 RSV Ag IA.rapid Ql (Nph) Negative Normal Negative [facility] Comment on above: Performed By: #### 2 [id number], [id number] #### [facility] Laboratory [address] [place] [address] XR Chest Single Viewon 07-14 XR Chest [...] DAP = na Normal [facility] Formson 12-24-2022 Forms [id number] [id number]:[id number] [facility] Vital Signs Date Time Vital Sign Value Performing Clinician Facility 01-25-2025 09:18-0400 Body weight 143.79 kg Yogesh Ally DO Work Phone: [facility] 01-25-2025 09:18-0400 Diastolic blood pressure 80 mm[Hg] Yogesh Ally DO Work Phone: [facility] 01-25-2025 09:18-0400 Systolic blood pressure 128 mm[Hg] Yogesh Ally DO Work Phone: [facility] 01-11-2025 13:41-0400 Body weight 143.34 kg Maryanne FOWLER Work Phone: [facility] 01-11-2025 13:41-0400 Diastolic blood pressure 76 mm[Hg] Maryanne FOWLER Work Phone: [facility] 01-11-2025 13:41-0400 Systolic blood pressure 122 mm[Hg] Maryanne FOWLER Work Phone: [facility] 12-28-2024 10:20-0400 Body weight 139.82 kg Yogesh Ally DO Work Phone: [facility] 12-28-2024 10:20-0400 Diastolic blood pressure 82 mm[Hg] Yogesh Ally DO Work Phone: [facility] 12-28-2024 10:20-0400 Systolic blood pressure 126 mm[Hg] Yogesh Ally DO Work Phone: [facility] 12-06-2024 13:53-0400 Body weight 139.71 kg Lynette Gunter BRANDS EDITOR Work Phone: [facility] 12-06-2024 13:53-0400 Diastolic blood pressure 70 mm[Hg] Lynette Gunter BRANDS EDITOR Work Phone: [facility] 12-06-2024 13:53-0400 Systolic blood pressure 114 mm[Hg] Lynette Lyric BRANDS EDITOR Work Phone: [facility] 11-15-2024 10:36-0400 Body weight 139.16 kg Yogesh Ally DO Work Phone: [facility] 11-15-2024 10:36-0400 Diastolic blood pressure 78 mm[Hg] Yogesh Ally DO Work Phone: [facility] 11-15-2024 10:36-0400 Systolic blood pressure 130 mm[Hg] Yogesh Ally DO Work Phone: [facility] 10-18-2024 14:37-0400 Body weight 136.99 kg Maryanne FOWLER Work Phone: [facility] 10-18-2024 14:37-0400 Diastolic blood pressure 78 mm[Hg] Maryanne FOWLER Work Phone: [facility] 10-18-2024 14:37-0400 Systolic blood pressure 130 mm[Hg] Maryanne Covarrubias PA Work Phone: [facility] 09-21-2024 16:43-0500 Body weight 136.9 kg Maryanne Camposey PA Work Phone: [facility] 09-21-2024 16:43-0500 Diastolic blood pressure 76 mm[Hg] Maryanne Camposey PA Work Phone: [facility] 09-21-2024 16:43-0500 Systolic blood pressure 118 mm[Hg] Maryanne Covarrubias PA Work Phone: [facility] 08-17-2024 11:52-0500 Body weight 138.8 kg Yogesh Ally DO Work Phone: [facility] 08-17-2024 11:52-0500 Diastolic blood pressure 78 mm[Hg] Yogesh Ally DO Work Phone: [facility] 08-17-2024 11:52-0500 Systolic blood pressure 122 mm[Hg] Yogesh Ally DO Work Phone: [facility] 07-18-2024 11:15-0500 Body weight 139.71 kg Nom Nurse [facility] 07-18-2024 11:15-0500 Diastolic blood pressure 74 mm[Hg] [facility] Nurse [facility] 07-18-2024 11:15-0500 Systolic blood pressure 118 mm[Hg] Nom Nurse [facility] 09-17-2023 09:35-0500 Body height 175.26 cm Tiesha Flood Other [facility] Other 09-17-2023 09:35-0500 Body mass index (BMI) [Ratio] 40.16 kg/m2 Tiesha Flood Other [facility] Other 09-17-2023 09:35-0500 Body temperature 99.2 [degF] Tiesha Flood Other [facility] Other 09-17-2023 09:35-0500 Body weight 123.38 kg Tiesha Flood Other [facility] Other 09-17-2023 09:35-0500 Respiratory rate 18 /min Tiesha Flood Other [facility] Other 09-17-2023 09:35-0500 SaO2% (BldA) [Mass fraction] 97 % Tiesha Flood Other [facility] Other 09-02-2023 09:30-0500 Body height 175.26 cm Sheree Cheung Other [facility] Other 09-02-2023 09:30-0500 Body mass index (BMI) [Ratio] 40.21 kg/m2 Sheree Cheung Other [facility] Other 09-02-2023 09:30-0500 Body weight 123.52 kg Sheree Cheung Other [facility] Other 09-02-2023 09:30-0500 Diastolic blood pressure 78 mm[Hg] Sheree Cheung Other [facility] Other 09-02-2023 09:30-0500 Respiratory rate 18 /min Sheree Cheung Other [facility] Other 09-02-2023 09:30-0500 SaO2% (BldA) [Mass fraction] 97 % Sheree Cheung Other [facility] Other 09-02-2023 09:30-0500 Systolic blood pressure 120 mm[Hg] Sheree Cheung Other [facility] Other 07-27-2023 09:30-0500 Body height 175.26 cm Sheree Jonatan Other [facility] Other 07-27-2023 09:30-0500 Body mass index (BMI) [Ratio] 40.02 kg/m2 Sheree Jonatan Other [facility] Other 07-27-2023 09:30-0500 Body weight 122.93 kg Sheree Jonatan Other [facility] Other 07-27-2023 09:30-0500 Diastolic blood pressure 76 mm[Hg] Sheree Cheung Other [facility] Other 07-27-2023 09:30-0500 Respiratory rate 16 /min Sheree Cheung Other [facility] Other 07-27-2023 09:30-0500 SaO2% (BldA) [Mass fraction] 98 % Sheree Jonatan Other [facility] Other 07-27-2023 09:30-0500 Systolic blood pressure 120 mm[Hg] Sheree Cheung Other [facility] Other 01-21-2022 15:35-0400 Body height 175.26 cm Almaz Deanna Other [facility] Other 01-21-2022 15:35-0400 Body mass index (BMI) [Ratio] 30.86 kg/m2 Almaz Deanna Other [facility] Other 01-21-2022 15:35-0400 Body temperature 97.3 [degF] Almaz Huerta Other [facility] Other 01-21-2022 15:35-0400 Body weight 94.8 kg Almaz Huerta Other [facility] Other 01-21-2022 15:35-0400 Diastolic blood pressure 73 mm[Hg] Almaz Huerta Other [facility] Other 01-21-2022 15:35-0400 Respiratory rate 16 /min Almaz Huerta Other [facility] Other 01-21-2022 15:35-0400 SaO2% (BldA) [Mass fraction] 97 % Almaz Huerta Other [facility] Other 01-21-2022 15:35-0400 Systolic blood pressure 133 mm[Hg] Almaz Huerta Other [facility] Other Encounters Encounter Date Encounter Type Care Provider Facility Start: 01-25-2025 End: 01-25-2025 Bamboo flowsheet Yogesh Ally DO Work Phone: [facility] Start: 01-25-2025 End: 01-25-2025 Bamboo flowsheet Yogesh Ally DO Work Phone: [facility] Start: 01-25-2025 End: 01-25-2025 Clinisync Result Encounter Yogesh Ally DO Work Phone: [facility] External [facility] Unsolicited Start: 01-25-2025 End: 01-25-2025 flow sheet Yogesh Ally DO Work Phone: [facility] Comment on above: Third trimester preg merly ([facility]); 34 weeks gestation of ([facility]) Start: 01-24-2025 End: 01-24-2025 Clinisync Result Encounter Yogesh Ally DO Work Phone: [facility] Unsolicited Start: 01-24-2025 End: 01-24-2025 Clinisync Result Encounter Yogesh Ally DO Work Phone: [facility] External [facility] Unsolicited Start: 01-18-2025 End: 01-18-2025 ambulatory YOGESH R ALLY [facility] Start: 01-17-2025 End: 01-17-2025 Clinisync Result Encounter [...] 01-11-2025 ambulatory MARYANNE COVARRUBIAS Not Available Start: 01-10-2025 End: 01-10-2025 Clinisync Result Encounter Yogesh Ally DO Work Phone: [facility] External [facility] Unsolicited Start: 01-10-2025 End: 01-10-2025 Clinisync Result Encounter Yogesh Ally DO Work [...] Start: 12-15-2024 End: 12-15-2024 Clinisync Result Encounter Yoegsh Ally DO Work Phone: [facility] External [facility] Unsolicited Start: 12-06-2024 End: 12-06-2024 Bamboo flowsheet Lynette Gunter NP Work Phone: [facility] Start: 12-06-2024 End: 12-06-2024 Bamboo flowsheet Lynette Gunter BRANDS EDITOR Work Phone: [facility] Start: 12-06-2024 End: 12-06-2024 flow sheet Lynette Gunter BRANDS EDITOR Work Phone: [facility] Comment on above: size inconsist ent with dates (Primary Dx); 27 weeks gestation of ; Second trimester Start: 12-06-2024 End: 12-06-2024 ambulatory LYNETTE GUTNER Not Available Start: 11-30-2024 End: 11-30-2024 Clinisync [...] 10-18-2024 flow sheet Maryanne FOWLER Work Phone: [facility] Comment on above: Second trimester [...] Sheree Cheung Facility:[facility] Start: 07-18-2024 End: 07-18-2024 ambulatory [facility] Ally Nurse [facility] Comment on above: GA: 7w3d Start: 06-26-2024 End: 06-26-2024 Clinisync Result Encounter Maryanne FOWLER Work Phone: [facility] External Department Unsolicited Start: 06-26-2024 End: 06-26-2024 Clinisync Result Encounter Maryanne Camposey JANETH Work Phone: [facility] Unsolicited Start: 09-17-2023 End: 09-17-2023 ambulatory Tiesha Flood Other [facility] Other Start: 09-17-2023 Office outpatient vi sit 15 minutes Tiesha Flood [facility] Start: 09-02-2023 End: 09-02-2023 ambulatory Sheree Cheung Other [facility] Other Start: 09-02-2023 Office outpatient vi sit 25 minutes Sheree Cheung [facility] Family [facility] [place] Start: 07-27-2023 End: 07-27-2023 ambulatory Sheree Cheung Other [facility] Other Start: 07-27-2023 Encounter for genera l adult medical examination without abnormal findings Sheree Cheung [facility] Family Medicine [place] Start: 07-27-2023 Initial preventive medicine new pt age 18-39yrs Sheree Cheung [facility] Family [facility] [place] Start: 07-14-2023 End: 07-14-2023 Emergency department patient visit Dom Sarmiento Facility:[facility] Start: 12-24-2022 ambulatory Dom Sarmiento Facility: [facility] [place] Start: 04-06-2022 End: 04-06-2022 ambulatory HAZEL GRADY Facility: Start: 01-21-2022 (URG) Urgent Care Visit Almaz romero [facility] Start: 01-21-2022 End: 01-21-2022 ambulatory Almaz Huerta Other [facility] Other Procedures Date Procedure Procedure Detail Performing Clinician Start: 01-25-2025 US OB BPP W NON-STRESS Yogesh Ally DO Work Phone: Start: 01-25-2025 Urnls dip stick/tabl et rgnt non-auto w/o micrscp Yogesh Ally DO Work Phone: Start: 01-24-2025 US OB BPP W NON-STRESS Yogesh Ally DO Work Phone: Start: 01-17-2025 US OB BPP W NON-STRESS Yogesh Ally DO Work Phone: Start: 01-11-2025 ALL CBC WITH AUTO DIFF Maryanne FOWLER Work Phone: Start: 01-10-2025 US OB BPP W NON-STRESS Yogesh Ally DO Work Phone: Start: 01-06-2025 AMNISURE Yogesh Fazi o DO Work Phone: Start: 01-03-2025 US OB BPP W NON-STRESS Yogesh Ally DO Work Phone: Start: 12-28-2024 Urnls dip stick/tabl et rgnt non-auto w/o micrscp Yogesh Ally DO Work Phone: Start: 12-16-2024 ALL CBC WITH AUTO DIFF Yogesh Ally DO Work Phone: Start: 12-15-2024 [facility] UA (CLEAN/CATCH) RN HEMODIALYSIS/MICRO IF IND. Yogesh Ally DO Work Phone: [...] Treatment Date Care Activity Detail Author Start: 02-01-2025 End: 02-01-2025 Patient encounter procedure 02/01/2025 8:50 AM EDT Routine [facility] [address] [place] [phone] Maryanne Covarrubias PA [address] [place] [address] [facility] Start: 01-25-2025 End: 01-25-2025 Patient encounter procedure 01/25/2025 8:40 AM EDT Routine [facility] [address] [facility] [place] [address] Yogesh Canales, DO [address] [place] [address] [facility] Start: 01-11-2025 End: 01-11-2026 Bile acids, total Bile acids, total Lab Routine Pruritus Expected: 01/11/2025 (Approximate), Expires: 01/11/2026 [facility] Comment on above: Expected: 01/11/2025 (Approximate), Expires: 01/11/2026 Start: 01-11-2025 End: 01-11-2026 CBC W Auto Differential panel - Blood CBC and differential Lab Routine Pruritus Expected: 01/11/2025 (Approximate), Expires: 01/11/2026 [facility] Comment on above: Expected: 01/11/2025 (Approximate), Expires: 01/11/2026 Start: 01-11-2025 End: 01-11-2026 Hepatic function 2000 panel - Serum or Plasma Hepatic function panel Lab Routine Pruritus Expected: 01/11/2025 (Approximate), Expires: 01/11/2026 [facility] Comment on above: Expected: 01/11/2025 (Approximate), Expires: 01/11/2026 Start: 01-11-2025 End: 01-11-2026 Hepatitis C virus Ab [Presence] in Serum or Plasma by Immunoassay Hepatitis C antibody Lab Routine Pruritus Expected: 01/11/2025 (Approximate), Expires: 01/11/2026 [facility] Work Phone: Comment on above: Expected: 01/11/2025 (Approximate), Expires: 01/11/2026 Start: 01-11-2025 End: 01-11-2026 Thyrotropin [Units/volume] in Serum or Plasma TSH Lab Routine Pruritus Expected: 01/11/2025 (Approximate), Expires: 01/11/2026 [facility] Comment on above: Expected: 01/11/2025 (Approximate), Expires: 01/11/2026 Start: 01-11-2025 End: 01-11-2025 Patient encounter procedure [facility] Comment on above: Arrived Start: 12-28-2024 End: 06-30-2025 US biophysical profile w non stress test US biophysical profile w non stress test Imaging Routine Oligohydramnios in third trimester, fetus 1 of multiple gestation Expected: 12/28/2024 (Approximate), Expires: 06/30/2025 [facility] Work Phone: Comment on above: Expected: 12/28/2024 (Approximate), Expires: 06/30/2025 Start: 12-28-2024 End: 12-28-2024 Patient encounter procedure 12/28/2024 9:50 AM EDT Routine [facility] [address] [place] [phone] AllyYogesh noyola, DO [address] [place] [address] [facility] Start: 12-28-2024 End: 12-28-2024 Professional / ancillary services management 12/28/2024 9:00 AM EDT Ancillary Procedure [facility] [address] [place] [address] [facility] Start: 12-06-2024 End: 04-07-2025 US for US OB follow up transabdominal approach Imaging Routine size inconsistent with dates Expected: 12/06/2024, Expires: 04/07/2025 [facility] Work Phone: Comment on above: Expected: 12/06/2024 , Expires: 04/07/2025 Start: 12-06-2024 End: 12-06-2024 Patient encounter procedure [facility] Comment on above: Arrived Start: 11-15-2024 End: 11-15-2025 CBC panel - Blood by Automated count CBC Lab Routine Diabetes mellitus screening Expected: 11/15/2024 (Approximate), Expires: 11/15/2025 [facility] Work Phone: Comment on above: Expected: 11/15/2024 (Approximate), Expires: 11/15/2025 Start: 11-15-2024 End: 11-15-2025 Measurement of glucose 1 hour after glucose challenge for glucose tolerance test Glucose tolerance, 1 hour Lab Routine Diabetes mellitus screening Expected: 11/15/2024 (Approximate), Expires: 11/15/2025 [facility] Comment on above: Expected: 11/15/2024 (Approximate), Expires: 11/15/2025 Start: 11-15-2024 End: 11-15-2024 Patient encounter procedure 11/15/2024 1:10 PM EDT Routine [facility] [address] [facility] [place] [address] Yogesh Canales DO [address] [place] [address] [facility] Start: 10-18-2024 End: 10-18-2024 Patient encounter procedure 10/18/2024 2:30 PM EDT Routine [facility] [address] [place] [phone] Maryanne Covarrubias, PA [address] [place] [address] [facility] Start: 10-18-2024 End: 10-18-2024 Professional / ancillary services management 10/18/2024 1:00 PM EDT Ancillary Procedure [facility] [address] [facility] [place] [address] [facility] Start: 09-21-2024 End: 09-21-2024 Patient encounter procedure 09/21/2024 3:20 PM EST Routine [facility] [address] [place] [address] Maryanne Covarrubias, PA [address] [place] [address] Arrived [facility] Comment on above: [...] mellitus screening Expected: 09/21/2024 (Approximate), Expires: 09/21/2025 [facility] Comment on above: Expected: 09/21/2024 (Approximate), Expires: 09/21/2025 Start: 09-21-2024 End: 09-21-2025 US for US OB 14+ weeks anatomy scan Imaging Routine Screening, , for anatomic survey Expected: 09/21/2024, Expires: 09/21/2025 [facility] Comment on above: Expected: 09/21/2024 , Expires: 09/21/2025 Start: 09-21-2024 End: 09-21-2024 Patient encounter procedure 09/21/2024 9:30 AM EST Routine [facility] [address] [place] [phone] Maryanne Covarrubias PA [address] [place] [address] [facility] Start: 08-17-2024 End: 08-17-2024 Patient encounter procedure [facility] Comment on above: Arrived Start: 07-18-2024 End: 07-18-2025 ABO/Rh ABO/Rh Lab Routine Missed menses , unspecified gestational age Expected: 07/18/2024 (Approximate), Expires: 07/18/2025 [facility] Comment on above: Expected: 07/18/2024 (Approximate), Expires: 07/18/2025 Start: 07-18-2024 End: 07-18-2025 Blood type and Indirect antibody screen panel - Blood Type and screen Lab Routine Missed menses , unspecified gestational age Expected: 07/18/2024 (Approximate), Expires: 07/18/2025 [facility] Work Phone: Comment on above: Expected: 07/18/2024 (Approximate), Expires: 07/18/2025 Start: 07-18-2024 End: 07-18-2025 Drugs of abuse panel - Urine by Screen method Rapid drug screen, urine Lab Routine , unspecified gestational age Encounter for supervision of normal first in first trimester Expected: 07/18/2024 (Approximate), Expires: 07/18/2025 [facility] Comment on above: Expected: 07/18/2024 (Approximate), Expires: 07/18/2025 Start: 07-18-2024 End: 07-18-2025 US Pelvis transvaginal US OB transvaginal Imaging Routine Missed menses Expected: 07/18/2024 (Approximate), Expires: 07/18/2025 [facility] Comment on above: Expected: 07/18/2024 (Approximate), Expires: 07/18/2025 Start: 07-18-2024 End: 07-18-2024 ambulatory 07/18/2024 10:30 AM EST Initial [facility] [address] [facility] [place] [address] [facility] Start: 07-18-2024 End: 07-18-2024 Professional / ancillary services management 07/18/2024 10:00 AM EST Ancillary Procedure [facility] [address] [place] [address] [facility] OB Bacteria identified in Urine by Culture Urine culture Microbiology Routine Missed menses Ordered: 07/18/2024 [facility] Comment on above: Ordered: 07/18/2024 CBC W Auto Differential panel - Blood CBC and differential Lab Routine Missed menses , unspecified gestational age Ordered: 07/18/2024 [facility] Comment on above: Ordered: 07/18/2024 CHLAMYDIA TRACHOMATI S (GENITO/STI) CHLAMYDIA TRACHOMATIS (GENITO/STI) Lab Routine STD exposure Vaginal discharge Ordered: 09/21/2024 [facility] Comment on above: Ordered: 09/21/2024 Hemoglobin A1c/Hemoglobin.total in Blood Hemoglobin A1c Lab Routine Missed menses , unspecified gestational age Ordered: 07/18/2024 [facility] Comment on above: Ordered: 07/18/2024 Hepatitis B virus surface Ag [Presence] in Serum or Plasma by Immunoassay Hepatitis B surface antigen Lab Routine Missed menses , unspecified gestational age Ordered: 07/18/2024 [facility] Comment on above: Ordered: 07/18/2024 Hepatitis C virus Ab [Presence] in Serum or Plasma by Immunoassay Hepatitis C antibody Lab Routine Missed menses , unspecified gestational age Ordered: 07/18/2024 [facility] Comment on above: Ordered: 07/18/2024 HIV-1/HIV-2 antigen/antibody combination immunoassay HIV-1 and HIV-2 antibodies Lab Routine Missed menses , unspecified gestational age Ordered: 07/18/2024 [facility] Comment on above: Ordered: 07/18/2024 Neisseria gonorrhoea e DNA [Presence] in Unspecified specimen by ISAURO with probe detection Neisseria gonorrhea DNA probe, direct Lab Routine STD exposure Vaginal discharge Ordered: 09/21/2024 [facility] Comment on above: Ordered: 09/21/2024 Reagin Ab [Presence] in Serum by RPR RPR Lab Routine Missed menses , unspecified gestational age Ordered: 07/18/2024 [facility] Comment on above: Ordered: 07/18/2024 Rubella antibody, IgG Rubella an tibody, IgG Lab Routine Missed menses , unspecified gestational age Ordered: 07/18/2024 [facility] Comment on above: Ordered: 07/18/2024 SURESWAB(R) ADVANCED VAGINITIS PLUS, TMA SURESWAB(R) ADVANCED VAGINITIS PLUS, TMA Pathology and Cytology Routine STD exposure Vaginal discharge Ordered: 09/21/2024 [facility] Work Phone: Comment on above: Ordered: 09/21/2024 Immunizations Immunization Date Immunization Notes Care Provider Chase sequeira 03-17-2021 Human Papillomavirus 9-valent vaccine Almaz Deanna Other [facility] Other 02-10-2021 Do not use COVID-19 Pfizer 2 dose Almaz Deanna Other [facility] Other 08-04-2016 Human Papillomavirus 9-valent vaccine Almaz Deanna Other [facility] Other 05-22-2016 Human Papillomavirus 9-valent vaccine Almaz Deanna Other [facility] Other 07-29-2015 hepatitis A vaccine, pediatric/adolescent dosage, 2 dose schedule Almaz Deanna Other [facility] Other 04-02-2007 hepatitis A vaccine, pediatric/adolescent dosage, 2 dose schedule Almaz Deanna Other [facility] Other 04-14-2005 diphtheria, tetanus toxoids and acellular pertussis vaccine, 5 pertussis antigens Almaz Deanna Other [facility] Other 10-09-2004 measles, mumps and rubella virus vaccine Almaz Deanna Other [facility] Other 04-21-2004 DTaP-hepatitis B and poliovirus vaccine Almaz Deanna Other [facility] Other 04-21-2004 haemophilus influenz ae type b vaccine, PRP-T conjugate Almaz Deanna Other [facility] Other 02-19-2004 DTaP-hepatitis B and poliovirus vaccine Almaz Deanna Other [facility] Other 02-19-2004 haemophilus influenz ae type b vaccine, PRP-T conjugate Almaz Deanna Other [facility] Other 2003 DTaP-hepatitis B and poliovirus vaccine Almaz Deanna Other [facility] Other 2003 haemophilus influenz ae type b vaccine, PRP-T conjugate Almaz Deanna Other [facility] Other 2003 hepatitis B vaccine, pediatric or pediatric/adolescent dosage Almaz Deanna Other [facility] Other Payers Date Payer Category Payer Self-pay 2021 Private Health Insurance 2003 Unknown [id number] 2.16.8 [id number] 2003 Unknown [id number] 2.16.8 [id number] 2003 Unknown [id number] 2.16.84 0.1.703388.3.579.2.1259 2003 Unknown [id number] 2.16.84 0.1.924070.3.579.2.1259 2003 Unknown [id number] 2.16.84 0.1.524390.3.579.2.1259 2003 Unknown [id number] 2.16.84 0.1.830303.3.579.2.1259 2003 Unknown [id number] 2.16.84 0.1.872412.3.579.2.9 2003 Unknown [id number] 2.16.84 0.1.617956.3.579.2.1259 2003 Unknown [id number] 2.16.84 0.1.232209.3.579.2.1259 2003 Unknown [id number] 2.16.84 0.1.368294.3.579.2.1259 2003 Unknown [id number] 2.16.84 0.1.425680.3.579.2.1259 2003 Unknown [id number] 2.16.84 0.1.933716.3.579.2.1259 2003 Unknown [id number] 2.16. 840.1.050222.3.579.2.1286 1959 Unknown [id number] 1959 Unknown [id number] 1959 Unknown [id number] 2.16.84 0.1.743075.3.579.2.593 Unknown [id number] 2.16.8 [id number] Social History Date Type Detail Facility Unknown if ever smoked [facility] Other Sex Assigned At [facility] Other Tobacco smoking status NDIS Tobacco smoking consumption unknown [facility] Start: 2005 Sex assigned at Not on file [facility] Start: 06-10-2024 [facility] Clinical Notes 01-21-2022 to 01-25-2025 JANETH Ji - 01/25/2025 8:40 AM JANETH Blanca - 01/11/2025 1:30 PM EDDevendra Rodríguez LPN - 12/28/2024 9:50 AM EDTLynette Gunter NP - 12/06/2024 1:20 PM EDT Note Date & Type Note Facility 01-25-2025 History of Presen t illness Narrative Reason [...] ASSESSMENT & PLAN ICD-10-CM 1. Third trimester ([facility]) Z34.93 POCT urinalysis dipstick manually resulted 2. 34 weeks gestation of ([facility]) Z3A.34 Return OB: Patient presents today for [...] Documented by JANETH Ji on behalf of: Yogesh Canales DO documented in this encounter [facility] 01-11-2025 History of Presen t illness Narrative [...] for routine OB appointment. Documented by JANETH iJ on behalf of: JANETH Ji documented in this encounter [facility] 12-28-2024 History of Presen [...] nursing note reviewed. Exam conducted with a towel folder present. Vitals: There is no height or [...] Yogesh Canales DO documented in this encounter [facility] 12-06-2024 History of Presen [...] nursing note reviewed. Exam conducted with a towel folder present. Vitals: There is no height or [...] Lynette Gunter NP documented in this encounter [facility] 11-15-2024 History of Presen [...] nursing note reviewed. Exam conducted with a towel folder present. Vitals: There is no height or [...] Yogesh Canales DO documented in this encounter [facility] 10-18-2024 History of Presen [...] of: JANETH Ji documented in this encounter [facility] 09-21-2024 History of Presen [...] obtained without difficulty and patient was given [facility] order to have obtained. Orders Placed [...] of: JANETH Ji documented in this encounter [facility] 08-17-2024 History of Presen [...] nursing note reviewed. Exam conducted with a towel folder present. Vitals: There is no height or [...] meat, and stay away from [facility]. Patient has been consulted regarding any [...] Yogesh Canales DO documented in this encounter [facility] 07-18-2024 History of Presen [...] meat, and stay away from [facility]. Patient has also been advised to [...] Jazmyne Oliveira MA documented in this encounter [facility] 09-17-2023 Evaluation note Encounter [...] understanding and is agreeable to treatment plan. [facility] Other 01-25-2024 Evaluation note* Encounter Date Diagnosis [...] and no personal patient information was compromised. [facility] Other 12-19-2023 Evaluation note* Encounter Date Diagnosis [...] (ICD-10 - F32.1) See above treatment plan. [facility] Other 06-15-2022 Evaluation note* Encounter Date Diagnosis Assessment Notes Treatment Notes Treatment Clinical Notes Jan, Pre-employment examination (ICD-10 - Z02.1) [facility] Other Evaluation note* Diagnosis Missed menses , [...] pruritic disorder [facility] Diagnosis Third trimester ([facility]HS-HCC) state, incidental 34 weeks gestation of ([facility]HS-HCC) documented in this encounter [facility] Narrative - Reported* Type Description Date Medical History vertigo [facility] Other Reason for referral (narrative)* Reason Refer to Sylwia berg or counseling for anxiety and depression Diagnosis 1 MATTHIAS (generalized anx iety disorder) (F41.1) Referral Organization [facility] Carolyne Wick Referring Provider First Name Sheree Referring Provider Last Name Jonatan Referring Provider Specialty Nurse Pract mitchel Referred Provider Specialty Psychiatry Referral Priority Routine [facility] Other Summary Purpose Family History No Family [...] and content) DATE CREATED AUTHOR 04/10/2022 [facility] DATE CREATED AUTHOR AUTHOR'S ORGANIZ ATION 08/13/2023 [facility] DATE CREATED AUTHOR AUTHOR'S ORGANIZ ATION 08/09/2024 [facility] DATE CREATED AUTHOR AUTHOR'S ORGANIZ ATION 01/12/2025 [facility] EPIC DATE CREATED AUTHOR AUTHOR'S ORGANIZ ATION 01/20/2025 [facility] Care Teams (unrecognized sec tion and content) Asset Administrator Relationship Specialty Start Date End Date Hazel Grady MD [address] [place] [address] PCP - General Family Medicine 07/18/24 Asset Administrator Relationship Specialty Start Date End Date Hazel Grady MD [address] [place] [id number] PCP - General Family Medicine 07/18/24 Asset Administrator Relationship Specialty Start Date End Date Hazel Grady MD [address] [place], [place] [phone] PCP - General Family Medicine 07/18/24 Asset Administrator Relationship Specialty Start Date End Date Hazel Grady MD [address] [place] [id number] PCP - General Family Medicine 07/18/24 Asset Administrator Relationship Specialty Start Date End Date Hazel Grady MD [address] [place] [address] PCP - General [facility] Medicine 07/18/24 Asset Administrator Relationship Specialty Start Date End Date Hazel Grady MD [address] [place] [address] PCP - General [facility] 07/18/24 Asset Administrator Relationship Specialty Start Date End Date Hazel Grady MD [address] [place] [address] PCP - [facility] 07/18/24 Asset Administrator Relationship Specialty Start Date End Date Hazel Grady MD [address] [place] [address] PCP - General [facility] 07/18/24 Asset Administrator Relationship Specialty Start Date End Date Hazel Grady MD [address] [place] [address] PCP - General [facility] 07/18/24 Asset Administrator Relationship Specialty Start Date End Date Hazel Grady MD [address] [place] [address] PCP - General Family Medicine 07/18/24 Asset Administrator Relationship Specialty Start Date End Date Hazel Grady MD [address] [place] [address] PCP - General Family Medicine 07/18/24 FOR [...] BE BASED ON THE PRIMARY CLINICAL RECORDS. [facility]. provides no warranty or guarantee of the accuracy or completeness of information in this document.
[2025-01-27 10:07] VITALS: BP 127/75; PULSE 97
== END 2025-01-27 10:35 | disposition home or self-care (01) ==
LOC: FBCO 10:01 → FBC 10:03
PROVIDERS: PCP Family Medicine; Visit Provider Obstetrics & Gynecology
DX: O41.00X0 Oligohydramnios, unspecified trimester, not applicable or unspecified (principal)
CPT/HCPCS: 59025

== ENCOUNTER 2025-01-31 09:57 | Outpatient (OUT) | payer OTHER, SELFPAY ==
[2025-01-31] VITALS (13 sets, daily range): BP systolic 111–144; BP diastolic 65–89; PULSE 89–106
--- NOTE | 2025-01-31 10:05 | US_ITS ---
[facility] [place] [id number] Patient Name: JIMBO DOE MRN: [id number] date: 2005 Sex: F Assigned Patient Location: [facility] Current Patient Location: [facility] Accession/Order Number: [id number] Exam Date: 01/31/2025 11:05 Report Date: 01/31/2025 11:08 At the request of: YOGESH CALI DO Procedure: US OB BPP w non-stress BIOPHYSICAL PROFILE: CLINICAL INFORMATION: Oligohydramnios COMPARISON: 01/25/2025 There is a single live intrauterine gestation in cephalic presentation. The reported gestational age is 35 weeks 4 days. The heart rate [id number] beats per minute. FINDINGS: TONE: 1 or more episodes of activity extension and flexion of extremity or opening and closing of the hand [Y] 2/2 GROSS BODY MOVEMENTS: 3 or more discrete body or limb movements [Y] 2/2 BREATHING MOVEMENTS: 1 or more episodes of breathing lasting at least 30 seconds [Y] 2/2 JEROD: A single deepest vertical pocket of amniotic fluid greater than 2 cm [Y] 2/2 JEROD: 8.6 cm. The 5th percentile is 7.9 cm. Total score: 8/8 US/ OB BPP w non-stress IMPRESSION: NORMAL BIOPHYSICAL PROFILE. BORDERLINE LOW JEROD . Impression dictated by: Aparna Nascimento M.D. 01/31/2025 11:08 AM Dictation Location: [place] [address] Electronically authenticated by: [id number] Y Date: 01/31/2025 11:08
[2025-01-31] MEDS: PROMETHAZINE HCL 12.5 MG in 0.9 % SODIUM CHLORIDE 50 ML 202 MG IV (11:54)
[2025-01-31 11:55] LABS: Basophils Percent Auto 0.1 % (0.2-2.0); Eosinophils Percent Auto 0.3 % (0.9-7.0); Hematocrit 29.9 % (36.0-48.0); Hemoglobin 10.2 g/dL (12.0-16.0); Immature Granulocytes Abs Auto 0.05 10^3/uL (0.00-0.03); Immature Granulocytes Pct Auto 0.5 % (0.0-0.5); Lymphocytes Absolute Auto 1.4 10^3/uL (1.2-3.8); Lymphocytes Percent Auto 13.8 % (20.5-60.0); Mean Corpuscular HGB Conc 34.1 g/dL (29.9-35.2); Mean Corpuscular Hemoglobin 27.8 pg (26.7-34.0); Mean Corpuscular Volume 81.5 fL (81.0-99.0); Mean Platelet Volume 9.4 fL (9.5-13.5); Monocytes Absolute Auto 0.6 10^3/uL (0.3-0.8); Monocytes Percent Auto 5.7 % (1.7-12.0); Neutrophils Absolute Auto 8.3 10^3/uL (1.4-6.5); Neutrophils Percent Auto 79.6 % (43.0-75.0); Platelet Count 242 10^3/uL (150-450); Red Blood Count 3.67 10^6/uL (4.20-5.40); Red Cell Distribution Width 13.3 % (11.0-15.0); White Blood Count 10.4 10^3/uL (4.0-11.0)
[2025-01-31 12:01] LABS: Alanine Aminotransferase 13 U/L (14-59); Aspartate Amino Transferase 11 U/L (15-37); Estimated GFR (African America >60 (>=60 mL/min/1.73m^2); Estimated GFR (Non-African Ame >60 (>=60 mL/min/1.73m^2); Uric Acid 3.7 mg/dL (2.6-6.0)
[2025-01-31] MEDS: BETAMETHASONE ACE/BETAMETHASONE SOD PHOS 30 MG/5 ML 12 MG IM (12:11)
[2025-01-31] MEDS: 0.9 % SODIUM CHLORIDE 1,000 ML 1000 ML IV (12:13)
[2025-01-31 12:20] LABS: Partial Thromboplastin Time 26.7 sec (22.3-36.2); Prothrombin Time 9.8 sec (9.0-11.6)
[2025-01-31 12:22] LABS: Fibrinogen 469 mg/dL (200-400); INR <0.93
--- NOTE | 2025-01-31 12:29 | PC.NURSE ---
medicated with celestone, iv fluids and phenergan, labs completed and pt states headache remains 7-8 with occasional stars noted
[2025-01-31 13:05] LABS: Creatinine Urine Random 42.26 mg/dL (20.00-300.00); Total Protein Urine Random 8.3 mg/dL (<=11.9)
--- NOTE | 2025-01-31 13:10 | PC.NURSE ---
up to BR, states still seeing stars in eyes randomly and continues to rate headache a 8
--- NOTE | 2025-01-31 13:54 | PC.NURSE ---
took lunch, up to BR, no difference in symptoms
[2025-01-31] MEDS: NALBUPHINE HCL 10 MG/ML AMPULE IV (15:42)
--- NOTE | 2025-01-31 17:38 | PC.NURSE ---
1542 continues with headache and starry vision, discussed plan of care with pt regarding dc and return tomorrow for celestone and 24 hour urine (if goes home if headache improves
--- NOTE | 2025-01-31 17:42 | PC.NURSE ---
1550 rates headache 5 now after nubain
--- OUTSIDE RECORDS SUMMARY | 2025-02-01 08:31 | XMS_ITS | CCD ---
Author Organization [facility] Care Team Providers Care Technical Communicator Name Role Phone Almaz Huerta Unavailable HAZEL GRADY Primary Care Unavailable CHRISTIANO TATUM Attending Unavailable CHRISTIANO TATUM Consulting Unavailable CHRISTIANO TATUM Admitting Unavailable Sheree Cheung Unavailable Dom Sarmiento Attending Unavailable Tiesha Flood Unavailable Unavailable Primary Care Provider UnavailHazel Young MD Primary Care Provider Sheree Cheung Primary Care Unavailable AllyBrigida noyolay Attending Unavailable AllyBrigiday Admitting Unavailable ALLYBRIGIDAY R Referring Unavailable MARYANNE COVARRUBIAS Attending Unavailable MARYANNE COVARRUBIAS Attending Unavailable ALLYCB NOYOLA Attending Unavailable DONAVAN GUNTER Attending Unavailable ALLY, CB Attending Unavailable MIESHA, MARYANNE Attending Unavailable ALLY, CB Attending Unavailable ALLY, CB Attending Unavailable Allergies Allergy Classification Reported Allergen(s) Allergy Type Date of Onset Reaction(s) Facility (20 sources) Amoxicillin; Translations: [amoxicillin] Drug Allergy 4 swelling, Rash [facility] Repository (1 source) Amoxicillin Drug Allergy 6 [facility] Repository (1 source) Amoxicillin Drug Allergy 4 [facility] Repository Medications Current Medications Medication Drug Class(es) [...] Range Facility OB BPP W NON-STRESS on 01-31-2025 [place] [address] Ultrasound Report Signed Patient: FRANCES DOE MR#: [id number] : 2005 Acct:[id number] Age/Sex: 19 / F ADM Date: 01/31/25 Loc: [facility] 254-[address]: Cb Canales D.O. Ordering Physician: Cb Canales D.O. Date of Service: 01/31/25 Procedure(s): US OB BPP w non-stress Accession Number(s): [id number] cc: Cb Canales D.O.; HAZEL GRADY The [place] [address] Patient Name: FRANCES DOE MRN: [facility]:[id number] date: 2005 Sex: F Assigned Patient Location: [facility] Current Patient Location: [facility] Accession/Order Number: [id number] Exam Date: 01/31/2025 11:05 Report Date: 01/31/2025 11:08 At the request of: CB CANALES DO Procedure: US OB BPP w non-stress BIOPHYSICAL PROFILE: CLINICAL INFORMATION: Oligohydramnios COMPARISON: 01/25/2025 There is a single live intrauterine gestation in cephalic presentation. The reported gestational age is 35 weeks 4 days. The heart rate [id number] beats per minute. FINDINGS: TONE: 1 or [...] greater than 2 cm [Y] 2/2 JEROD: 8.6 cm. The 5th percentile is 7.9 cm. Total score: 8/8 US/US OB BPP w non-stress IMPRESSION: NORMAL BIOPHYSICAL PROFILE. BORDERLINE LOW JEROD . Impression dictated by: Aparna Nascimento M.D. 01/31/2025 11:08 AM Dictation Location: [place] [address] Electronically authenticated by: [id number] Y Date: 01/31/2025 11:08 Dictated By: Aparna Nascimento M.D. Signed By: 01/31/25 1111 DD/ 1108 TD/TT: Certified Driver Examiner: [facility] Radiology, Radiologist, MD - 01/31/2025 [place] [address] Ultrasound Report Signed Patient: FRANCES DOE MR#: [id number] : 2005 Acct:[id number] Age/Sex: 19 / F ADM Date: 01/31/25 Loc: [facility] 254-[address]: Cb Canales D.O. Ordering Physician: Cb Canales D.O. Date of Service: 01/31/25 Procedure(s): US OB BPP w non-stress Accession Number(s): [id number] cc: Cb Canales D.O.; HAZEL GRADY [place] [id number] Patient Name: FRANCES DOE MRN: [facility]:[id number] date: 2005 Sex: F Assigned Patient Location: [facility] Current Patient Location: [facility] Accession/Order Number: [id number] Exam Date: 01/31/2025 11:05 Report Date: 01/31/2025 11:08 At the request of: CB CANALES DO Procedure: US OB BPP w non-stress BIOPHYSICAL PROFILE: CLINICAL INFORMATION: Oligohydramnios COMPARISON: 01/25/2025 There is a single live intrauterine gestation in cephalic presentation. The reported gestational age is 35 weeks 4 days. The heart rate glybwrfr135 beats per minute. FINDINGS: TONE: 1 or [...] greater than 2 cm [Y] 2/2 JEROD: 8.6 cm. The 5th percentile is 7.9 cm. Total score: 8/8 US/US OB BPP w non-stress IMPRESSION: NORMAL BIOPHYSICAL PROFILE. BORDERLINE LOW JEROD . Impression dictated by: Aparna Nascimento M.D. 01/31/2025 11:08 AM Dictation Location: [place] [address] Electronically authenticated by: [id number] Y Date: 01/31/2025 11:08 Dictated By: Aparna Nascimento M.D. Signed By: 01/31/25 1111 DD/ 1108 TD/TT: Certified Driver Examiner: [facility] Radiology Study observation (narrative) [facility] US OB BPP W NON-STRESS Ordered By: Radiologist Radiology on 01-31-2025 RADHA paige Work Phone: US OB BPP W NON-STRESS on 01-25-2025 [place] [address] Ultrasound Report Signed Patient: FRANCES DOE MR#: [id number] : 2005 Acct:[id number] Age/Sex: 19 / F ADM Date: 01/25/25 Loc: [facility] Attending Dr: Cb Canales D.O. Ordering Physician: Cb Canales D.O. Date of Service: 01/25/25 Procedure(s): US OB BPP w non-stress Accession Number(s): [id number] cc: Cb Canales D.O.; HAZEL GRADY [place] [address] Patient Name: FRANCES DOE MRN: [id number] date: 2005 Sex: F Assigned Patient Location: [facility] Current Patient Location: Accession/Order Number: [id number] Exam Date: 01/25/2025 14:59 Report Date: 01/25/2025 15:01 At the request of: CB CANALES DO Procedure: US OB BPP w non-stress Biophysical profile. Reason for exam: Oligohydramnios. COMPARISON: BPP 01/24/2025. TECHNIQUE: Transabdominal imaging of the gravid uterus was obtained. FINDINGS: Commissioning Editor reports a BPP of 8 out of 8. JEROD is normal 11.4 cm. heart rate 159 bpm. US/US OB BPP w non-stress Impression: BPP 8 out of 8. Impression dictated by: Stanislav Francisco Jr., D.O. 01/25/2025 3:01 PM Dictation Location: [place] [address] Electronically authenticated by: [id number] Y Date: 01/25/2025 15:01 Dictated By: Stanislav Francisco M.D. Signed By: 01/25/25 1504 DD/ 1501 TD/TT: Certified Driver Examiner: [facility] Radiology, Radiologist, MD - 01/25/2025 [place] [address] Ultrasound Report Signed Patient: FRANCES DOE MR#: [id number] : 2005 Acct:[id number] Age/Sex: 19 / F ADM Date: 01/25/25 Loc: [facility] Attending Dr: Cb Canales D.O. Ordering Physician: Cb Canales D.O. Date of Service: 01/25/25 Procedure(s): US OB BPP w non-stress Accession Number(s): [id number] cc: Cb Canales D.O.; HAZEL GRADY The [place] [address] Patient Name: FRANCES DOE MRN: [facility]:[id number] date: 2005 Sex: F Assigned Patient Location: [facility] Current Patient Location: Accession/Order Number: [id number] Exam Date: 01/25/2025 14:59 Report Date: 01/25/2025 15:01 At the request of: CB CANALES DO Procedure: US OB BPP w non-stress Biophysical profile. Reason for exam: Oligohydramnios. COMPARISON: BPP 01/24/2025. TECHNIQUE: Transabdominal imaging of the gravid uterus was obtained. FINDINGS: Commissioning Editor reports a BPP of 8 out of 8. JEROD is normal 11.4 cm. heart rate 159 bpm. US/US OB BPP w non-stress Impression: BPP 8 out of 8. Impression dictated by: Stanislav Francisco Jr., D.O. 01/25/2025 3:01 PM Dictation Location: [place] [address] Electronically authenticated by: [id number] Y Date: 01/25/2025 15:01 Dictated By: Stanislav Francisco M.D. Signed By: 01/25/25 1504 DD/ 1501 TD/TT: Certified Driver Examiner: [facility] Radiology Study observation (narrative) [facility] US OB BPP W NON-STRESS Ordered By: Radiologist Radiology on 01-25-2025 [facility] [employer] Work Phone: Urinalysis macro (dipstick) panel (U)on 01-25-2025 Bilirubin, UA Negative Negative - 4(70) +++ mg/dL [facility] Blood, UA Negative Negative - 50 Sam/mcL [facility] Clarity, UA Clear formerly [facility] re Color, UA Yellow [facility] Glucose, UA Negative Negative - 1999(110) ++++ mg/dL [facility] Interpretation and review of laboratory results Normal formerly [facility] re Ketones, UA Negative Negative - 160(16) ++++ mg/dL [facility] Leukocytes, UA Moderate Negative - 500+++ Supa/mcL [facility] Nitrite, UA Negative Negative - Positive [facility] pH, UA 7 5 - 9 [facility] e Protein, UA Trace Negative - 1999(20) ++++ mg/dL [facility] Spec Grav, UA 1.015 1 - 1.03 [facility] Urobilinogen, UA 0.2 0.2 - 12 mg/dL [facility] US OB BPP W NON-STRESS on 01-24-2025 [place] [address] Ultrasound Report Signed Patient: FRANCES DOE MR#: [id number] : 2005 Acct:[id number] Age/Sex: 19 / F ADM Date: 01/24/25 Loc: [facility] 250-[address]: Cb Canales D.O. Ordering Physician: Cb Canales D.O. Date of Service: 01/24/25 Procedure(s): US OB BPP w non-stress Accession Number(s): [id number] cc: Cb Canales D.O.; HAZEL GRADY The [address] [address] Patient Name: FRANCES DOE MRN: [facility]:[id number] date: 2005 Sex: F Assigned Patient Location: [facility] Current Patient Location: [facility] Accession/Order Number: [id number] Exam Date: 01/24/2025 10:33 Report Date: 01/24/2025 10:38 At the request of: CB CANALES DO Procedure: US OB BPP w [...] Nascimento M.D. 01/24/2025 10:38 AM Dictation Location: [place] [address] Electronically authenticated by: [id number] Y Date: 01/24/2025 10:38 Dictated By: Aparna Nascimento M.D. Signed By: 01/24/25 1041 DD/ 1038 TD/TT: Certified Driver Examiner: [facility] Radiology, Radiologist, MD - 01/24/2025 [place] [address] Ultrasound Report Signed Patient: FRANCES DOE MR#: [id number] : 2005 Acct:[id number] Age/Sex: 19 / F ADM Date: 01/24/25 Loc: [facility] 250-[address]: Cb Canales D.O. Ordering Physician: Cb Canales D.O. Date of Service: 01/24/25 Procedure(s): US OB BPP w non-stress Accession Number(s): [id number] cc: Cb Canales D.O.; HAZEL GRADY [address] [address] Patient Name: FRANCES DOE MRN: [id number]:[id number] date: 2005 Sex: F Assigned Patient Location: [facility] Current Patient Location: [facility] Accession/Order Number: [id number] Exam Date: 01/24/2025 10:33 Report Date: 01/24/2025 10:38 At the request of: CB CANALES DO Procedure: US OB BPP w [...] Nascimento M.D. 01/24/2025 10:38 AM Dictation Location: [place] [address] Electronically authenticated by: [id number] Y Date: 01/24/2025 10:38 Dictated By: Aparna Nascimento M.D. Signed By: 01/24/25 1041 DD/ 1038 TD/TT: Certified Driver Examiner: [facility] Radiology Study observation (narrative) [facility] OB BPP W NON-STRESS Ordered By: Radiologist Radiology on 01-24-2025 [facility] e Work Phone: US OB BPP W NON-STRESS on 01-17-2025 [place] [address] Ultrasound Report Signed Patient: FRANCES DOE MR#: [id number] : 2005 Acct:[id number] Age/Sex: 19 / F ADM Date: 01/17/25 Loc: [facility] 254-[address]: bC Canales D.O. Ordering Physician: Cb Canales D.O. Date of Service: 01/17/25 Procedure(s): US OB BPP w non-stress Accession Number(s): [id number] cc: Cb Canales D.O.; HAZEL GRADY The [place] [id number] Patient Name: FRANCES DOE MRN: [facility]:[id number] date: 2005 Sex: F Assigned Patient Location: [facility] Current Patient Location: [facility] Accession/Order Number: [id number] Exam Date: 01/17/2025 10:50 Report Date: 01/17/2025 10:51 At the request of: CB CANALES DO Procedure: US OB BPP w non-stress BIOPHYSICAL PROFILE: CLINICAL INFORMATION: oligohydramnios COMPARISON: 01/10/2025 There is a single live intrauterine gestation in cephalic presentation. The reported gestational age is 33 weeks 4 days. The heart rate [id number] beats per minute. FINDINGS: TONE: 1 or [...] Nascimento M.D. 01/17/2025 10:51 AM Dictation Location: [place] [address] Electronically authenticated by: [id number] Y Date: 01/17/2025 10:51 Dictated By: Aparna Nascimento M.D. Signed By: 01/17/25 1054 DD/ 1051 TD/TT: Certified Driver Examiner: [facility] Radiology, Radiologist, MD - 01/17/2025 [place] [address] Ultrasound Report Signed Patient: FRANCES DOE MR#: [id number] : 2005 Acct:[id number] Age/Sex: 19 / F ADM Date: 01/17/25 Loc: [facility] 254-[address]: bC Canales D.O. Ordering Physician: Cb Canales D.O. Date of Service: 01/17/25 Procedure(s): US OB BPP w non-stress Accession Number(s): [id number] cc: Cb Canales D.O.; HAZEL GRADY [place] [address] Patient Name: FRANCES DOE MRN: [facility]:[id number] date: 2005 Sex: F Assigned Patient Location: [facility] Current Patient Location: [facility] Accession/Order Number: [id number] Exam Date: 01/17/2025 10:50 Report Date: 01/17/2025 10:51 At the request of: CB CANALES DO Procedure: US OB BPP w non-stress BIOPHYSICAL PROFILE: CLINICAL INFORMATION: oligohydramnios COMPARISON: 01/10/2025 There is a single live intrauterine gestation in cephalic presentation. The reported gestational age is 33 weeks 4 days. The heart rate [id number] beats per minute. FINDINGS: TONE: 1 or [...] Nascimento M.D. 01/17/2025 10:51 AM Dictation Location: [place] [address] Electronically authenticated by: [id number] Y Date: 01/17/2025 10:51 Dictated By: Aparna Nascimento M.D. Signed By: 01/17/25 1054 DD/ 105 TD/TT: Certified Driver Examiner: [facility] Radiology Study observation (narrative) [facility] US OB BPP W NON-STRESS Ordered By: Radiologist Radiology on 01-17-2025 [facility] e Work Phone: ALL CBC WITH AUTO DIFFon BASOPHILS ABSOLUTE AUTO 0 [facility] Basophils/100 WBC (Bld) 0.1 % Low 0.2 - 2.0 % [facility] Eosinophils/100 WBC (Bld) 0.2 % Low 0.9 - 7.0 % [facility] Erythrocyte distribution width (RBC) [Ratio] 13 % 11.0 - 15.0 % [facility] Hematocrit (Bld) [Volume fraction] 31.2 % Low 36.0 - 48.0 % [facility] e Hemoglobin (Bld) [Mass/Vol] 10.3 g/dL Low 12.0 - 16.0 g/dL [facility] IMMATURE GRANULOCYTES ABS AUTO 0.02 [facility] Immature granulocytes/100 WBC (Bld) 0.2 % 0.0 - 0.5 % [facility] Interpretation and review of laboratory results Abnormal [facility] LYMPHOCYTES ABSOLUTE AUTO 1.4 [facility] Lymphocytes/100 WBC (Bld) 14.2 % Low 20.5 - 60.0 % [facility] MCH (RBC) [Entitic mass] 27.2 pg 26.7 - 34.0 pg [facility] MCHC (RBC) [Mass/Vol] 33 g/dL 29.9 - [...] OB BPP W NON-STRESS on 01-10-2025 [place] [address] Ultrasound Report Signed Patient: FRANCES DOE MR#: [id number] : 2005 Acct:[id number] Age/Sex: 19 / F ADM Date: 01/10/25 Loc: [place] [address]: Cb Canales D.O. Ordering Physician: Cb Canales D.O. Date of Service: 01/10/25 Procedure(s): US OB BPP w non-stress Accession Number(s): [id number] cc: Cb Canales D.O.; HAZEL GRADY [place] [address] Patient Name: FRANCES DOE MRN: [id number]:[id number] date: 2005 Sex: F Assigned Patient Location: [facility] Current Patient Location: [facility] Accession/Order Number: [id number] Exam Date: 01/10/2025 10:39 Report Date: 01/10/2025 10:44 At the request of: CB CANALES DO Procedure: US OB BPP w non-stress BIOPHYSICAL PROFILE: CLINICAL INFORMATION: OLIGOHYDRAMNIOS O41.09X1 COMPARISON: 01/03/2025 There is a single live intrauterine gestation in cephalic presentation. The reported gestational age is 32 weeks 4 days. The heart rate nyoffhgn111 beats per minute. FINDINGS: TONE: 1 or [...] the 5th percentile (8.6 cm). Total score: 8 US/US OB BPP w non-stress IMPRESSION: NORMAL BIOPHYSICAL PROFILE. BORDERLINE OLIGOHYDRAMNIOS. Impression dictated by: Aparna Nascimento M.D. 01/10/2025 10:44 AM Dictation Location: [place] [address] Electronically authenticated by: [id number] Y Date: 01/10/2025 10:44 Dictated By: Aparna Nascimento M.D. Signed By: 01/10/25 1047 DD/ 1044 TD/TT: Certified Driver Examiner: [facility] Radiology, Radiologist, MD - 01/10/2025 [place] [address] Ultrasound Report Signed Patient: FRANCES DOE MR#: [id number] : 2005 Acct:[id number] Age/Sex: 19 / F ADM Date: 01/10/25 Loc: [facility] 250-[address]: Cb Canales D.O. Ordering Physician: Cb Canales D.O. Date of Service: 01/10/25 Procedure(s): US OB BPP w non-stress Accession Number(s): [id number] cc: Cb Canales D.O.; HAZEL GRADY The [place] [id number] Patient Name: FRANCES DOE MRN: [facility]:[id number] date: 2005 Sex: F Assigned Patient Location: [facility] Current Patient Location: [facility] Accession/Order Number: [id number] Exam Date: 01/10/2025 10:39 Report Date: 01/10/2025 10:44 At the request of: CB CANALES DO Procedure: US OB BPP w non-stress BIOPHYSICAL PROFILE: CLINICAL INFORMATION: OLIGOHYDRAMNIOS O41.09X1 COMPARISON: 01/03/2025 There is a single live intrauterine gestation in cephalic presentation. The reported gestational age is 32 weeks 4 days. The heart rate irpoykxt326 beats per minute. FINDINGS: TONE: 1 or [...] Nascimento M.D. 01/10/2025 10:44 AM Dictation Location: [place] [address] Electronically authenticated by: [id number] Y Date: 01/10/2025 10:44 Dictated By: Aparna Nascimento M.D. Signed By: 01/10/25 1047 DD/ 1044 TD/TT: Certified Driver Examiner: [facility] Radiology Study observation (narrative) [facility] US OB BPP W NON-STRESS Ordered By: Radiologist Radiology on 01-10-2025 [facility] Work Phone: AMNISUREon 01-06-2025 [facility] AMNISURE Negative NEGATIVE [facility] US OB BPP W NON-STRESS on 01-03-[address] [address] Ultrasound Report Signed Patient: FRANCES DOE MR#: [id number] : 2005 Acct:[id number] Age/Sex: 19 / F ADM Date: 01/03/25 Loc: [facility] 251-[address]: Cb Canales D.O. Ordering Physician: Cb Canales D.O. Date of Service: 01/03/25 Procedure(s): US OB BPP w non-stress Accession Number(s): [id number] cc: Cb Canales D.O.; HAZEL GRADY [place] [address] Patient Name: FRANCES DOE MRN: [id number]:[id number] date: 2005 Sex: F Assigned Patient Location: [facility] Current Patient Location: [facility] Accession/Order Number: [id number] Exam Date: 01/03/2025 10:37 Report Date: 01/03/2025 10:43 At the request of: CB CANALES DO Procedure: US OB BPP w non-stress BIOPHYSICAL PROFILE: CLINICAL INFORMATION: Oligohydramnios O41.03x1 COMPARISON: 07/18/2024 There is a single live intrauterine gestation in cephalic presentation. The reported gestational age is 31 weeks 4 days. The heart rate pjpjedfn267 beats per minute. FINDINGS: TONE: 1 or [...] Nascimento M.D. 01/03/2025 10:43 AM Dictation Location: [place] [address] Electronically authenticated by: [id number] Y Date: 01/03/2025 10:43 Dictated By: Aparna Nascimento M.D. Signed By: 01/03/25 1046 DD/ 1043 TD/TT: Certified Driver Examiner: [facility] Radiology, Radiologist, - 01/03/2025 [place] [address] Ultrasound Report Signed Patient: FRANCES DOE MR#: [id number] : 2005 Acct:[id number] Age/Sex: 19 / F ADM Date: 01/03/25 Loc: [facility] 251-[address]: Cb Canales D.O. Ordering Physician: Cb Canales D.O. Date of Service: 01/03/25 Procedure(s): US OB BPP w non-stress Accession Number(s): [id number] cc: Cb Canales D.O.; HAZEL GRADY The [place] [address] Patient Name: FRANCES DOE MRN: [facility]:[id number] date: 2005 Sex: F Assigned Patient Location: [facility] Current Patient Location: [facility] Accession/Order Number: [id number] Exam Date: 01/03/2025 10:37 Report Date: 01/03/2025 10:43 At the request of: CB CANALES DO Procedure: US OB BPP w [...] Nascimento M.D. 01/03/2025 10:43 AM Dictation Location: [place] [address] Electronically authenticated by: [id number] Y Date: 01/03/2025 10:43 Dictated By: Aparna Nascimento M.D. Signed By: 01/03/25 1046 DD/ 1043 TD/TT: Certified Driver Examiner: [facility] [employer] Radiology Study observation (narrative) [facility] OB BPP W NON-STRESS Ordered By: Radiologist Radiology on 01-03-2025 [facility] [employer] Work Phone: OB FOLLOW UP TRANSABDOMIN AL APPROACHon 12-28-2024 [...] II, MD, PHD at 29-Dec-2024 12:17:39 PM [facility] Normal Not Available Comment on above: Order Comment: US OB SCAN FOR GROWTH Estimated Date of Delivery: 03/03/25 Gestational Age as of 12/06/2024: 27w4d Urinalysis macro (dipstick) panel (U)on 12-28-2024 Bilirubin, UA Negative Negative - 4(70) +++ mg/dL [facility] Blood, UA Negative Negative - 50 Sam/mcL [facility] Clarity, UA Clear formerly [facility] re Color, UA Yellow [facility] Glucose, UA Negative Negative - 1999(110) ++++ mg/dL [facility] Interpretation and review of laboratory results Abnormal formerly [facility] re Ketones, UA Negative Negative - 160(16) ++++ mg/dL [facility] Leukocytes, UA Positive Negative - 500+++ Supa/mcL [facility] Comment on above: small Nitrite, UA Negative Negative - Positive [facility] pH, UA 7 5 - 9 [facility] e Protein, UA Positive Negative - 1999(20) ++++ mg/dL [facility] Comment on above: 30mg/dL Spec Grav, UA 1.015 1 - 1.03 [facility] Urobilinogen, UA 0.2 0.2 - 12 mg/dL [facility] ALL CBC WITH AUTO DIFFon BASOPHILS ABSOLUTE AUTO 0 [facility] Basophils/100 WBC (Bld) 0.2 % 0.2 - 2.0 % [facility] Eosinophils/100 WBC (Bld) 0.4 % Low 0.9 - 7.0 % [facility] Erythrocyte distribution width (RBC) [Ratio] 12.7 % 11.0 - 15.0 % [facility] Hematocrit (Bld) [Volume fraction] 34 % Low 36.0 - 48.0 % [facility] Hemoglobin (Bld) [Mass/Vol] 11.5 g/dL Low 12.0 - 16.0 g/dL [facility] IMMATURE GRANULOCYTES ABS AUTO 0.06 High [facility] Immature granulocytes/100 WBC (Bld) 0.5 % 0.0 - 0.5 % [facility] Interpretation and review of laboratory results Abnormal [facility] LYMPHOCYTES ABSOLUTE AUTO 2.5 [facility] Lymphocytes/100 WBC (Bld) 19.6 % Low 20.5 - 60.0 % [facility] MCH (RBC) [Entitic mass] 28 pg 26.7 - 34.0 pg [facility] M[facility]C (RBC) [Mass/Vol] 33.8 g/dL 29.9 - 35.2 g/dL [facility] MCV (RBC) [Entitic vol] 82.7 fL 81.0 - 99.0 fL [facility] MONOCYTES ABSOLUTE AUTO 0.8 [facility] Monocytes/100 WBC (Bld) 6.5 % 1.7 - 12.0 % [facility] NEUTROPHILS ABSOLUTE AUTO 9.3 High [facility] Neutrophils/100 WBC (Bld) 72.8 % 43.0 - 75.0 % [facility] Platelet mean volume (Bld) [Entitic vol] 9.5 fL 9.5 - 13.5 fL [facility] [facility] EO # 0.1 [facility] Healthcar e TBH PLT 306 [facility] RBC 4.11 Low [facility] WBC 12.7 High [facility]IS[facility]NC [facility] UA (CLEAN/CATCH) DIP GUIDER STOVES/TARSHA RO IF IND.on 12-15-2024 BILIRUBIN URINE Negative NEGATIVE [facility] thcare BLOOD URINE Negative NEGATIVE [facility] re Clarity (U) CLEAR CLEAR [facility] re Color (U) LT. YELLOW YELLOW [facility] Healthcar e GLUCOSE URINE UA Negative NEGATIVE mg/dL [facility] Interpretation and review of laboratory results Abnormal [facility] Healthca re Ketones Ql (U) Negative NEGATIVE mg/dL [facility] Leukocyte esterase Test strip Ql (U) LARGE Abnormal NEGATIVE [facility] Healthcar e NITRITE URINE Negative NEGATIVE [facility] Health care pH (U) 7.0 [pH] 5.0 - 9.0 [facility] PROTEIN URINE Negative NEG/TRACE mg/dL [facility] SPECIFIC GRAVITY URINE <=1.005 Abnormal 1.005 - 1.025 [facility] URINE MICROSCOPIC INDICATED YES [facility] UROBILINOGEN URINE 0.2 EU/dL 0.2 - 1.0 EU/dL [facility] Urinalysis macro (dipstick) panel (U)on 12-06-2024 Bilirubin, UA Negative Negative - 4(70) +++ mg/dL [facility] Blood, UA Negative Negative - 50 Sam/mcL [facility] Clarity, UA Clear formerly [facility] re Color, UA Yellow [facility] Healthcar e Glucose, UA Negative Negative - 1999(110) ++++ mg/dL [facility] Interpretation and review of laboratory results Abnormal [facility] re Ketones, UA Positive Negative - 160(16) ++++ mg/dL [facility] Comment on above: trace Leukocytes, UA Trace Negative - 500+++ Supa/mcL [facility] Nitrite, UA Negative Negative - Positive [facility] pH, UA 5.5 5 - 9 [facility] e Protein, UA Negative Negative - 1999(20) ++++ mg/dL [facility] Spec Grav, UA 1.03 1 - 1.03 [facility] Urobilinogen, UA 0.2 0.2 - 12 mg/dL [facility] Healthcar e ALL CBC WITH AUTO DIFFon BASOPHILS ABSOLUTE AUTO 0 [facility] Basophils/100 WBC (Bld) 0.2 % 0.2 - 2.0 % [facility] Eosinophils/100 WBC (Bld) 0.3 % Low 0.9 - 7.0 % [facility] Erythrocyte distribution width (RBC) [Ratio] 12.8 % 11.0 - 15.0 % [facility] Hematocrit (Bld) [Volume fraction] 34 % Low 36.0 - 48.0 % [facility] Hem[facility] (Bld) [Mass/Vol] 11.2 g/dL Low 12.0 - 16.0 g/dL [facility] IMMATURE GRANULOCYTES ABS AUTO 0.05 High [facility] Immature granulocytes/100 WBC (Bld) 0.4 % 0.0 - 0.5 % [facility] Interpretation and review of laboratory results Abnormal [facility] re LYMPHOCYTES ABSOLUTE AUTO 2.1 [facility] Lymphocytes/100 WBC (Bld) 17.3 % Low 20.5 - 60.0 % [facility] MCH (RBC) [Entitic mass] 27.7 pg 26.7 - 34.0 pg [facility] MCHC (RBC) [Mass/Vol] 32.9 g/dL 29.9 - 35.2 g/dL [facility] MCV (RBC) [Entitic vol] 84 fL 81.0 - 99.0 fL [facility] MONOCYTES ABSOLUTE AUTO 0.8 [facility] Monocytes/100 WBC (Bld) 6.6 % 1.7 - 12.0 % [facility] NEUTROPHILS ABSOLUTE AUTO 8.9 High [facility] Neutrophils/100 WBC (Bld) 75.2 % High [...] II, MD, PHD at 17-Nov-2024 06:24:10 AM [facility] Normal Not Available Comment on above: Order Comment: US OB INCOMPLETE ANATOMY Estimated Date of Delivery: 03/03/25 Gestational Age as of 11/01/2024: 22w4d Urinalysis macro (dipstick) panel (U)on 11-15-2024 Bilirubin, UA Negative Negative - 4(70) +++ mg/dL [facility] Blood, UA Negative Negative - 50 Sam/mcL [facility] Clarity, UA Clear [facility] Color, UA Yellow [facility] Glucose, UA Negative Negative - 2000(110) ++++ mg/dL [facility] Interpretation and review of laboratory results Abnormal [facility] Healthca re Ketones, UA Negative Negative - 160(16) ++++ mg/dL [facility] Leukocytes, UA Trace Negative - 500+++ Supa/mcL [facility] Nitrite, UA Negative Negative - Positive [facility] pH, UA 6.5 5 - 9 [facility] Healthcar e Protein, UA Trace Negative - 1999(20) ++++ mg/dL [facility] Spec Grav, UA 1.02 1 - 1.03 [facility] Urobilinogen, UA 0.2 0.2 - 12 mg/dL [facility] e Urinalysis macro (dipstick) panel (U)on 10-18-2024 Bilirubin, UA Negative Negative - 4(70) +++ mg/dL [facility] Blood, UA Negative Negative - 50 Sam/mcL [facility] Clarity, UA Clear formerly [facility] re Color, UA Yellow [facility] Health[facility] e Glucose, UA Negative Negative - 1999(110) ++++ mg/dL [facility] Interpretation and review of laboratory results Normal formerly [facility] re Ketones, UA Negative Negative - 160(16) ++++ mg/dL [facility] Leukocytes, UA Negative Negative - 500+++ Supa/mcL [facility] Nitrite, UA Negative Negative - Positive [facility] pH, UA 6 5 - 9 [facility] Healthcar e Protein, UA Negative Negative - 1999(20) ++++ mg/dL [facility] Spec Grav, UA 1.03 1 - 1.03 [facility] Urobilinogen, UA 0.2 0.2 - 12 mg/dL [facility] Healthcar e RECURRENT VAGINITIS (HTRX)on 09-23-2024 ATOPOBIUM VAGINAE 21.837 Abnormal [facility] ATOPOBIUM VAGINAE Detected Abnormal [facility] BVAB 2,3 (BACTERIAL VAGINOSIS ASSOCIATED BACTERIA 2, 3); MOBILUNCUS SPP 14.391 Abnormal [facility] BVAB 2,3 (BACTERIAL VAGINOSIS ASSOCIATED BACTERIA 2, 3); MOBILUNCUS SPP Detected Abnormal [facility] WILBERT ALBICANS, PARAPSILOSIS, TROPICALIS 0 [facility] WILBERT ALBICANS, PARAPSILOSIS, TROPICALIS Not detected [facility] WILBERT GLABRATA 0 [facility] WILBERT GLABRATA Not detected [facility] ealthcare WILBERT KRUSEI [address] [facility] hcare WILBERT KRUSEI Not detected [facility] CHLAMYDIA TRACHOMATIS 0 [facility] CHLAMYDIA TRACHOMATIS Not detected [facility] Healthcare ERMB, C; MEFA 22.056 Abnormal [facility] care ERMB, C; MEFA Detected Abnormal [facility] care GARDNERELLA VAGINALIS 27.529 Abnormal [facility] GARDNERELLA VAGINALIS Detected Abnormal [facility] Interpretation and review of laboratory results Abnormal [facility] Healthga re MEGASPHAERA (TYPES 1, 2) 15.923 Abnormal [facility] Healthcare MEGASPHAERA (TYPES 1, 2) Detected Abnormal [facility] MYCOPLASMA GENITALIUM 0 [facility] MYCOPLASMA GENITALIUM Not detected [facility] NEISSERIA GONORRHOEAE 0 [facility] NEISSERIA GONORRHOEAE Not detected [facility] Healthcare TET B, TET M 16.766 Abnormal [facility] Healthc are TET B, TET M Detected Abnormal [facility] Healthc are TRICHOMONAS VAGINALIS 0 [facility] TRICHOMONAS VAGINALIS Not detected [facility] GLUCOSE 1 HOURon 09-22-2024 Glucose [Mass/Vol] 114 mg/dL NINF - 13 0 mg/dL [facility]ISYNC [facility] US OB 14+ [...] II, MD, PHD at 19-Oct-2024 09:01:31 AM [facility] Normal Not Available Comment on above: Order Comment: US OB ANATOMY SINGLE W US OB CERVICAL LENGTH Estimated Date of Delivery: 03/03/25 Gestational Age as of 09/21/2024: 16w5d Urinalysis macro (dipstick) panel (U)Ordered By: Vicky Rodríguez on 09-21-2024 Bilirubin, UA Negative Negative - 4(70) +++ mg/dL [facility] Blood, UA Negative Negative - 50 Sam/mcL [facility] Clarity, UA Clear formerly [facility] re Color, UA Yellow [facility] e Glucose, UA Negative Negative - 1999(110) ++++ mg/dL [facility] Interpretation and review of laboratory results Normal formerly [facility] re Ketones, UA Negative Negative - 160(16) ++++ mg/dL [facility] Leukocytes, UA Negative Negative - 500+++ Supa/mcL [facility] Nitrite, UA Negative Negative - Positive [facility] pH, UA 7.5 5 - 9 [facility] e Protein, UA Negative Negative - 1999(20) ++++ mg/dL [facility] Spec Grav, UA 1.02 1 - 1.03 [facility] Urobilinogen, UA 0.2 0.2 - 12 mg/dL [facility] Health[facility] e Urinalysis macro (dipstick) panel (U)on 08-17-2024 Bilirubin, UA Negative Negative - 4(70) +++ mg/dL [facility] Blood, UA Negative Negative - 50 Sam/mcL [facility] Clarity, UA Clear [facility] Healthca re Color, UA Yellow [facility] Healthcar e Glucose, UA Negative Negative - 1999(110) ++++ mg/dL [facility] Interpretation and review of laboratory results Abnormal [facility] re Ketones, UA Negative Negative - 160(16) ++++ mg/dL [facility] Leukocytes, UA Positive Negative - 500+++ Supa/mcL [facility] Comment on above: small Nitrite, UA Negative Negative - Positive [facility] pH, UA 6 5 - 9 [facility] Protein, UA Negative Negative - 1999(20) ++++ mg/dL [facility] Spec Grav, UA 1.03 1 - 1.03 [facility] Urobilinogen, UA 0.2 0.2 - 12 mg/dL [facility] Healthcar e MLR HEMOGLOBIN A1Con 024 Glucose [Mass/Vol] 111 mg/dL [facility] ealthcare HbA1c (Bld) [Mass fraction] 5.5 % 4.5 - 6.2 % [facility] Comment on above: ADA RECOMMENDED LIMI T 4.0 - 6.0 ADA THERAPEUTIC TARGET < 7.0 ACTION SUGGESTED > 7.0 [facility]NC [facility] Healthcar e Urine Cultureon 08-05-2024 Bacteria identified Cx Nom (U) <9,000 colonies/ml mixed bacterial skin contaminants 2 Days PERFORMED BY: [place] [address] PATHOLOGIST REDEVELOPMENT MANAGER ELICEO SPENCER M.D. Normal [facility] Comment on above: Performed By: #### C UU #### [address] HCG ( test) Ql (U)o n 07-18-2024 Interpretation and review of laboratory results Abnormal [facility] Healthca re Preg Test, Ur Positive Negative [facility] Urinalysis macro (dipstick) panel (U)on 07-18-2024 Bilirubin, UA Negative Negative - 4(70) +++ mg/dL [facility] Blood, UA Negative Negative - 50 Sam/mcL [facility] Clarity, UA Clear [facility] Healthca re Color, UA Yellow [facility] Healthcar e Glucose, UA Negative Negative - 1999(110) ++++ mg/dL [facility] Interpretation and review of laboratory results Normal formerly [facility] re Ketones, UA Negative Negative - 160(16) ++++ mg/dL [facility] Leukocytes, UA Negative Negative - 500+++ Supa/mcL [facility] Nitrite, UA Negative Negative - Positive [facility] pH, UA 6.5 5 - 9 [facility] Healthcar e Protein, UA Negative Negative - 1999(20) ++++ mg/dL [facility] Spec Grav, UA 1.02 1 - 1.03 [facility] Urobilinogen, UA 0.2 0.2 - 12 mg/dL [facility] Healthcar e TBH PREG QUANT HCGon 18-2 024 HCG QUANTITATIVE 203 mIU/mL [facility] lthcare Comment on above: 5-50 0.2-1 WEEK 50-500 1-2 WEEKS 100-5,000 2-3 WEEKS 500-10,000 3-4 WEEKS 1,000-50,000 4-5 WEEKS 10,000-100,000 5-6 WEEKS 15,000-200,000 6-8 WEEKS 10,000-100,000 2-3 MONTHS [facility] Healthcar e Quick Strepon 09-17-2023 S. pyogenes Org specific cx Ql (Throat) positve [facility] [place] Other Quick Strep [facility] [facility] [place] Other Test, Urineon 08-11 Beta HCG ( test) Ql (U) Negative [facility] [place] Other Capillary Glucose POCon Glucose [Mass/Vol] 94 mg/dL Normal 55-99 [facility] Comment on above: Result Comment: Loretta mcneal RN/ Performed By: #### 2 [id number] #### [facility] Laboratory [address] [place] [address] Consent for Treatmenton Consent for Treatment [id number] 0TIFF Normal [facility] Discharge Instructionson Discharge Instructions [id number] 0TIFF Normal [facility] ED Clinical Summaryon 2022 ED Clinical Summary [place] [id number] ED Clinical Summary Person Information Name: [facility] Age: 17 Years : 2005 Sex: Female Language: Italian PCP: Hazel Grady MD Marital Status: Single [...] 07/14/2023 03:42:20 07/14/2023 03:42:20 07/14/2023 03:42:20 ADDRESS: [address] [place] [address] [address] [facility] [id number] PHYS DOC NOTES: MEDICAL INFORMATION: Prescriptions Given: New Medications [id number], [address], [place] [id number], [phone] azithromycin (azithromycin 250 mg Tab) 1 Tablets By Mouth every day for 4 Days. Refills: 0. PATIENT EDUCATION INFORMATION: Instructions: Viral Illness, Adult; Otitis Media, Adult Follow up: With: Address: When: Hazel Grady [address] [place] [address] Business (2) In 7 days 07/21/2023 DIAGNOSIS: AOM (acute otitis media); Viral illness Normal [facility] ED Note-Physicianon 07-14-20 ED Note-Physician Basic [...] and Complexity of Problems Differential Diagnosis: [] [facility] Data External documents reviewed: N/A My [...] # 4 tab(s), Refills(s) 0, Pharmacy: [id number], 175, cm, 07/13/23 23:42:00 EST, Height/Length Dosing, 121.7, kg, 07/13/23 23:42:00 EST, Weight Dosing Capillary Glucose POC Influenza A&B Ag [place] [place] Resp.syn.virus (Rsv) XR Chest Single View Disposition Plan Discharge Prescription List Prescriptions azithromycin 250 mg Tab, 250 mg= 1 tab(s), Oral, Daily Follow-up With When Contact Information Hazel Lv In 7 days 07/21/2023 EST [address] [place] [address]- Business (2) Additional Instructions: Patient Education Viral [...] 94 mg/dL (07/14/23 02:00:00) POC Device SN: [id number] (07/14/23 02:00:00) POC User ID: [id number] (07/14/23 02:00:00) POC Username: POC Username (07/14/23 [...] Sarmiento DO 07/14/2023 01:56:22 Normal [facility] Comment on above: Result Comment: Elec [...] Follow these instructions at home: ? Take pacg-uwf-rqpewsa and prescription medicines only as told by [...] provider. Document Revised: 11/03/2021 Document Reviewed: 11/03/2021 [employer] Patient Education ? 2022 ChoiceMap. Infectious Disease Viral Illness, Adult Viruses are [...] (more content not included)... Normal [facility] ED Patient Summaryon 023 ED Patient Summary [place] [id number] Patient Discharge Instructions Person Information Name: FRANCES DOE Age: 17 Years Arrival Date: 07/13/2023 23:32:13 Discharge Diagnosis: AOM (acute otitis media); Viral illness Primary Care Physician: Hazel Grady MD Provider Information Primary Provider: Dom Sarmiento DO [employer]:None The exam and treatment you received in the Emergency Department were for an urgent problem and are not intended as complete care. It is important that you follow up with a doctor, nurse practitioner, or physician?s home based assistant for ongoing care. If your symptoms become worse or you do not improve as expected and you are unable to reach your usual health care provider, you should return to the Emergency Department. We are available 24 hours a day. FRANCES DOE has been given the following list of patient education materials, prescriptions and follow-up instructions: Follow-up Instructions: With: Address: When: Hazelsilke Grady [address] [place] [address] [employer] (2) In 7 days 07/21/2023 In the event that this physician does not participate in your insurance network, please consult with your insurance company to find a nearby participating provider. Patient Education Materials: Viral Illness, Adult; Otitis Media, Adult A MESSAGE TO ALL PATIENTS REGARDING OPIOIDS PRESCRIPTION OPIOIDS: WHAT YOU NEED TO KNOW Prescription opioids can be used to help relieve fabqdclh-vv-pqnqbr pain and are often prescribed following a [...] be struggling with addiction, tell your health customer care professional and ask for guidance or call [employer]?S National Helpline at 9-465-881-BMHY. (more content not included)... Normal [facility] Influenza A&B Agon 3 Influenzae A Ag Negative Normal Negative [facility] Comment on above: Performed By: #### 2 [id number] #### [facility] Laboratory [address] [place] [address] Influenzae B Ag Negative Normal Negative [facility] Comment on above: Result Comment: Test sensitivity and specificity vary for age group, specimen type, antigen types, and prevalence of disease. Test results must be evaluated in conjunction with other clinical data available to the physician. Individuals who received nasally administered Influenza A vaccine may have positive test results up to 3 days after vaccination. Performed By: #### 2 [id number] #### [facility] [address] [place] [address] Prescriptions/Work Noteson 1 09-14-2022 Prescriptions/Work Notes [id number] 0TIFF Normal [facility] Rapid COVID Antigen ([facility])on 07-14-2023 Rapid COV Int NEG Ctl Pass Normal [facility] Comment on above: Performed By: #### 2 [id number] #### [facility] [address] [place] [address] Rapid COV Int POS Ctl Pass Normal [facility] Comment on above: Performed By: #### 2 [id number] #### [facility] [address] [place] [address] SARS-CoV+SARS-CoV-2 (COVID-19) Ag IA.rapid Ql (Resp) Not detected Normal Not Detected [facility] Comment on above: Result Comment: The [employer]? System for Rapid Detection of SARS-CoV-2 is [...] viruses or pathogens; and, in the [facility], this test is only authorized for the duration of the declaration that circumstances exist justifying the authorization of emergency use of in vitro diagnostics for detection and/or diagnosis of the virus that causes COVID-19 under Section 564(b)(1) of the Act, 21 U.S.C. ? 360bbb-3(b)(1), unless the authorization is terminated or revoked sooner. Performed By: #### 2 [id number], [id number] #### [facility] [address] [place] [address] Resp.syn.virus (Rsv)on 07-14 RSV Ag IA.rapid Ql (Nph) Negative Normal Negative [facility] Comment on above: Performed By: #### 2 [id number] #### [facility] [address] [place] [address] XR Chest Single Viewon 07-14 XR Chest [...] ANGELINA Technologist: HILL Technical Comments Radiation Dose: maggie Hogan in mGy = na DAP = na [facility] Formson 12-24-2022 Forms [id number] [facility] Vital Signs Date Time Vital Sign Value Performing Clinician Facility 01-25-2025 09:18-0400 Body weight 143.79 kg Cb Ally DO Work Phone: [facility] 01-25-2025 09:18-0400 Diastolic blood pressure 80 mm[Hg] Cb Ally DO Work Phone: [facility] 01-25-2025 09:18-0400 Systolic blood pressure 128 mm[Hg] Cb Ally DO Work Phone: [facility] 01-11-2025 13:41-0400 Body weight 143.34 kg Maryanne FOWLER Work Phone: [facility] 01-11-2025 13:41-0400 Diastolic blood pressure 76 mm[Hg] Maryanne FOWLER Work Phone: [facility] 01-11-2025 13:41-0400 Systolic blood pressure 122 mm[Hg] Maryanne FOWLER Work Phone: [facility] 12-28-2024 10:20-0400 Body weight 139.82 kg Cb Ally DO Work Phone: [facility] 12-28-2024 10:20-0400 Diastolic blood pressure 82 mm[Hg] Cb Ally DO Work Phone: [facility] 12-28-2024 10:20-0400 Systolic blood pressure 126 mm[Hg] Cb Ally DO Work Phone: [facility] 12-06-2024 13:53-0400 Body weight 139.71 kg Donavan Gunter [employer]AR TECH Work Phone: [facility] 12-06-2024 13:53-0400 Diastolic blood pressure 70 mm[Hg] Donavan Gunter SOLAR TECH Work Phone: [facility] 12-06-2024 13:53-0400 Systolic blood pressure 114 mm[Hg] Donavan Mariscalerly SOLAR TECH Work Phone: [facility] 11-15-2024 10:36-0400 Body weight 139.16 kg Cb Ally DO Work Phone: [facility] 11-15-2024 10:36-0400 Diastolic blood pressure 78 mm[Hg] Cb Ally DO Work Phone: [facility] 11-15-2024 10:36-0400 Systolic blood pressure 130 mm[Hg] Cb Ally DO Work Phone: [facility] 10-18-2024 14:37-0400 Body weight 136.99 kg Maryanne Covarrubias PA Work Phone: [facility] 10-18-2024 14:37-0400 Diastolic blood pressure 78 mm[Hg] Maryanne Covarrubias PA Work Phone: [facility] 10-18-2024 14:37-0400 Systolic blood pressure 130 mm[Hg] Maryanne [employer] PA Work Phone: [facility] 09-21-2024 16:43-0500 Body weight 136.9 kg Maryanne [employer] PA Work Phone: [facility] 09-21-2024 16:43-0500 Diastolic blood pressure 76 mm[Hg] Maryanne [employer] PA Work Phone: [facility] 09-21-2024 16:43-0500 Systolic blood pressure 118 mm[Hg] Maryanne Miesha PA Work Phone: [facility] 08-17-2024 11:52-0500 Body weight 138.8 kg Cb Ally DO Work Phone: [facility] 08-17-2024 11:52-0500 Diastolic blood pressure 78 mm[Hg] Cb Ally DO Work Phone: [facility] 08-17-2024 11:52-0500 Systolic blood pressure 122 mm[Hg] Cb Ally DO Work Phone: [facility] 07-18-2024 11:15-0500 Body weight 139.71 kg [facility] [facility] 07-18-2024 11:15-0500 Diastolic blood pressure 74 mm[Hg] [facility] 07-18-2024 11:15-0500 Systolic blood pressure 118 mm[Hg] [facility] 09-17-2023 09:35-0500 Body height 175.26 cm Tiesha Flood Other [facility] Other 09-17-2023 09:35-0500 Body mass index (BMI) [Ratio] 40.16 kg/m2 Tiesha Flood Other [facility] Other 09-17-2023 09:35-0500 Body temperature 99.2 [degF] Tiesha Flood Other [facility] Other 09-17-2023 09:35-0500 Body weight 123.38 kg Tiesha Flood Other [facility] Other 09-17-2023 09:35-0500 Respiratory rate 18 /min Tiesha Flood Other [facility] Other 09-17-2023 09:35-0500 SaO2% (BldA) [Mass fraction] 97 % Tiesha Jungler Other [facility] Other 09-02-2023 09:30-0500 Body height 175.26 cm Sheree Cheung Other [facility] Other 09-02-2023 09:30-0500 Body mass index (BMI) [Ratio] 40.21 kg/m2 Sheree Cheung Other [facility] Other 09-02-2023 09:30-0500 Body weight 123.52 kg Sheree Cheung Other [facility] Other 09-02-2023 09:30-0500 Diastolic blood pressure 78 mm[Hg] Sheree Jonatan Other [facility] Other 09-02-2023 09:30-0500 Respiratory rate 18 /min Sheree Jonatan Other [facility] Other 09-02-2023 09:30-0500 SaO2% (BldA) [Mass fraction] 97 % Sheree De Leónkevin Other [facility] Other 09-02-2023 09:30-0500 Systolic blood pressure 120 mm[Hg] Sheree Jonatan Other [facility] Other 07-27-2023 09:30-0500 Body height 175.26 cm Sheree De Leónkevin Other [facility] Other 07-27-2023 09:30-0500 Body mass index (BMI) [Ratio] 40.02 kg/m2 Sheree De Leónkevin Other [facility] Other 07-27-2023 09:30-0500 Body weight 122.93 kg Sheree De Leónkevin Other [facility] Other 07-27-2023 09:30-0500 Diastolic blood pressure 76 mm[Hg] Sheree Jonatan Other [facility] Other 07-27-2023 09:30-0500 Respiratory rate 16 /min Sheree Jonatan Other [facility] Other 07-27-2023 09:30-0500 SaO2% (BldA) [Mass fraction] 98 % Sheree Cheung Other [facility] Other 07-27-2023 09:30-0500 Systolic blood pressure 120 mm[Hg] Sheree Cheung Other [facility] Other 01-21-2022 15:35-0400 Body height 175.26 cm Almaz Huerta Other [facility] Other 01-21-2022 15:35-0400 Body mass index (BMI) [Ratio] 30.86 kg/m2 Almaz Deanna Other [facility] Other 01-21-2022 15:35-0400 Body temperature 97.3 [degF] Almaz Benavidezmond Other [facility] Other 01-21-2022 15:35-0400 Body weight 94.8 kg Almaz Deanna Other [facility] Other 01-21-2022 15:35-0400 Diastolic blood pressure 73 mm[Hg] Almaz Deanna Other [facility] Other 01-21-2022 15:35-0400 Respiratory rate 16 /min Almaz Deanna Other [facility] Other 01-21-2022 15:35-0400 SaO2% (BldA) [Mass fraction] 97 % Almaz Deanna Other [facility] Other 01-21-2022 15:35-0400 Systolic blood pressure 133 mm[Hg] Almaz Deanna Other [facility] Other Encounters Encounter Date Encounter Type Care Provider Facility Start: 01-31-2025 End: 01-31-2025 Clinisync Result Encounter Cb Ally DO Work Phone: [facility] Unsolicited Start: 01-31-2025 End: 01-31-2025 Clinisync Result Encounter Cb Ally DO Work Phone: [facility] Unsolicited Start: 01-25-2025 End: 01-25-2025 Bamboo flowsheet Cb Ally DO Work Phone: [facility] Start: 01-25-2025 End: 01-25-2025 Bamboo flowsheet Cb Ally DO Work Phone: [facility] Start: 01-25-2025 End: 01-25-2025 Clinisync Result Encounter Cb Ally DO Work Phone: [facility] Unsolicited Start: 01-25-2025 End: 01-25-2025 ambulatory CB ALLY Not Available Start: 01-25-2025 End: 01-25-2025 flow sheet Cb Ally DO Work Phone: [facility] Comment on above: Third trimester preg merly ([facility]); 34 weeks gestation of ([facility]) Start: 01-24-2025 End: 01-24-2025 Clinisync Result Encounter Cb Ally DO Work Phone: [facility] Unsolicited Start: 01-24-2025 End: 01-24-2025 Clinisync Result Encounter Cb Ally DO Work Phone: [facility] Unsolicited Start: 01-18-2025 End: 01-18-2025 ambulatory CB [facility] Start: 01-17-2025 End: 01-17-2025 Clinisync Result Encounter Cb Ally DO Work Phone: [facility] External [facility] Unsolicited Start: 01-17-2025 End: 01-17-2025 Clinisync Result Encounter Cb Ally DO Work Phone: [facility] External Department [...] Pruritus Start: 01-11-2025 End: 01-11-2025 ambulatory MARYANNE MIESHA Not Available Start: 01-10-2025 End: 01-10-2025 Clinisync Result Encounter Cb Ally DO Work Phone: [facility] Unsolicited Start: 01-10-2025 End: 01-10-2025 Clinisync Result Encounter Cb Ally DO Work Phone: [facility] Unsolicited Start: 01-06-2025 End: 01-06-2025 Clinisync Result Encounter Cb Ally DO Work Phone: [facility] Unsolicited Start: 01-06-2025 End: 01-06-2025 Clinisync Result Encounter Cb Ally DO Work Phone: [facility] Unsolicited Start: 01-03-2025 End: 01-03-2025 Clinisync Result Encounter Cb Ally DO Work Phone: [facility] Unsolicited Start: 01-03-2025 End: 01-03-2025 Clinisync Result Encounter Cb Ally DO Work Phone: [facility] Unsolicited Start: 12-28-2024 End: 12-28-2024 flow sheet Cb Ally DO Work Phone: [facility] Comment on above: 30 weeks gestation o f ; Third trimester ; Oligohydramnios in third trimester, fetus 1 of multiple gestation Start: 12-28-2024 End: 12-28-2024 ambulatory CB ALLY Not Available Start: 12-16-2024 End: 12-16-2024 Clinisync Result Encounter Cb Ally DO Work Phone: [facility] Unsolicited Start: 12-16-2024 End: 12-16-2024 Clinisync Result Encounter Cb Ally DO Work Phone: [facility] External [facility] Unsolicited Start: 12-15-2024 End: 12-15-2024 Clinisync Result Encounter Cb Ally DO Work Phone: [facility] External [facility] Unsolicited Start: 12-15-2024 End: 12-15-2024 Clinisync Result Encounter Cb Ally DO Work Phone: [facility] Unsolicited Start: 12-06-2024 End: 12-06-2024 Bamboo flowsheet Donavan Lyric SOLAR TECH Work Phone: [facility] Start: 12-06-2024 End: 12-06-2024 Bamboo flowsheet Donavan Lyric SOLAR TECH Work Phone: [facility] Start: 12-06-2024 End: 12-06-2024 flow sheet Donavan Lyric SOLAR TECH Work Phone: [facility] Comment on above: size inconsist ent with dates (Primary Dx); 27 weeks gestation of ; Second trimester Start: 12-06-2024 End: 12-06-2024 ambulatory DONAVAN LYRIC Not Available Start: 11-30-2024 End: 11-30-2024 Clinisync Result Encounter Cb Ally DO Work Phone: [facility] External [facility] Unsolicited Start: 11-30-2024 End: 11-30-2024 Clinisync Result Encounter Cb Kinneyo DO Work Phone: [facility] Unsolicited Start: 11-15-2024 End: 11-15-2024 flow sheet Cb Kinneyo DO Work Phone: [facility] Comment on above: 24 weeks gestation o f ; Second trimester ; Diabetes mellitus screening Start: 11-15-2024 End: 11-15-2024 ambulatory CB KINNEYO Not Available Start: 10-18-2024 End: 10-18-2024 [...] Unsolicited Start: 08-17-2024 End: 08-17-2024 Bamboo flowsheet Cb Ally DO Work Phone: [facility] Start: 08-17-2024 End: 08-17-2024 Bamboo flowsheet Cb Ally DO Work Phone: [facility] Start: 08-17-2024 End: 08-17-2024 flow sheet Cb Ally DO Work Phone: [facility] Comment on above: First trimester preg merly; 11 weeks gestation of ; headache, antepartum Start: 08-17-2024 End: 08-17-2024 ambulatory CB ALLY Not Available Start: 08-05-2024 End: 08-05-2024 Clinisync Result Encounter Cb Ally DO Work Phone: [facility] Unsolicited Start: 08-05-2024 End: 08-05-2024 Clinisync Result Encounter Cb Ally DO Work Phone: [facility] External [facility] Unsolicited Start: 08-05-2024 End: 08-05-2024 ambulatory Sheree Cheung Facility:[facility] Start: 07-18-2024 End: 07-18-2024 ambulatory [facility] Ally Nurse [facility] Comment on above: GA: 7w3d Start: 06-26-2024 End: 06-26-2024 Clinisync Result Encounter Maryanne FOWLER Work Phone: [facility] Unsolicited Start: 06-26-2024 End: 06-26-2024 Clinisync Result Encounter Maryanne FOWLER Work Phone: [facility] Unsolicited Start: 09-17-2023 End: 09-17-2023 ambulatory Tiesha Flood Other [facility] Other Start: 09-17-2023 Office outpatient vi sit 15 minutes Tiesha Flood [facility] Start: 09-02-2023 End: 09-02-2023 ambulatory Sheree Cheung Other [facility] Other Start: 09-02-2023 Office outpatient vi sit 25 minutes Sheree Cheung [facility] [place] Start: 07-27-2023 End: 07-27-2023 ambulatory Sheree Jonatan Other [facility] Other Start: 07-27-2023 Encounter for genera l adult medical examination without abnormal findings Sheree Cheung [facility] [place] Start: 07-27-2023 Initial preventive medicine new pt age 18-39yrs Sheree Cheung [facility] [place] Start: 07-14-2023 End: 07-14-2023 Emergency department patient visit Dom Sarmiento [place] [place] Start: 12-24-2022 ambulatory Dom Sarmiento Facility: [facility] [place] Start: 04-06-2022 End: 04-06-2022 ambulatory HAZEL GRADY Facility: Start: 01-21-2022 (URG) Urgent Care Visit Almaz romero [facility] [place] Start: 01-21-2022 End: 01-21-2022 ambulatory Almaz Huerta Other [facility] Other Procedures Date Procedure Procedure Detail Performing Clinician Start: 01-31-2025 US OB BPP W NON-STRESS Cb Ally DO Work Phone: Start: 01-25-2025 US OB BPP W NON-STRESS Cb Ally DO Work Phone: Start: 01-25-2025 Urnls dip stick/tabl et rgnt non-auto w/o micrscp Cb Ally DO Work Phone: Start: 01-24-2025 US OB BPP W NON-STRESS Cb Ally DO Work Phone: Start: 01-17-2025 US OB BPP W NON-STRESS Cb Ally DO Work Phone: Start: 01-11-2025 ALL CBC WITH AUTO DIFF Maryanne FOWLER Work Phone: Start: 01-10-2025 US OB BPP W NON-STRESS Cb Ally DO Work Phone: Start: 01-06-2025 AMNISURE Cb Fazi o DO Work Phone: Start: 01-03-2025 US OB BPP W NON-STRESS Cb Ally DO Work Phone: Start: 12-28-2024 Urnls dip stick/tabl et rgnt non-auto w/o micrscp Cb Ally DO Work Phone: Start: 12-16-2024 ALL CBC WITH AUTO DIFF Cb Ally DO Work Phone: Start: 12-15-2024 [facility] UA (CLEAN/CATCH) DIP GUIDER STOVES/MICRO IF IND. Cb Ally DO Work Phone: Start: 12-06-2024 Urnls dip stick/tabl et rgnt non-auto w/o micrscp Donavan Gunter NP Work Phone: Start: 11-30-2024 ALL CBC WITH AUTO DIFF Cb Ally DO Work Phone: Start: 11-15-2024 Urnls dip stick/tabl et rgnt non-auto w/o micrscp Cb Ally DO Work Phone: Start: 10-18-2024 Urnls dip stick/tabl et rgnt non-auto w/o micrscp Maryanne FOWLER Work Phone: Start: 09-22-2024 GLUCOSE 1 HOUR Maryanne Covarrubias Work Phone: Start: 09-21-2024 RECURRENT VAGINITIS (HTRX) Maryanne FOWLER Work Phone: Start: 09-21-2024 Urnls dip stick/tabl et rgnt non-auto w/o micrscp Maryanne FOWLER Work Phone: Start: 08-17-2024 Urnls dip stick/tabl et rgnt non-auto w/o micrscp Cb Ally DO Work Phone: Start: 08-05-2024 MLR HEMOGLOBIN A1C Core y Ally DO Work Phone: Start: 07-18-2024 End: 07-18-2024 Urnls dip stick/tablet rgnt non-auto w/o micrscp Cb Ally DO Work Phone: Start: 06-26-2024 [facility] PREG QUANT HCG Maryanne FOWLER Work Phone: Plan of Treatment Date Care Activity Detail Author Start: 02-01-2025 End: 02-01-2025 Patient encounter procedure 02/01/2025 8:50 AM EDT Routine [facility] [address] [place] [id number] Maryanne Covarrubias PA [address] [place] [address] [facility] Start: 01-25-2025 End: 01-25-2025 Patient encounter procedure 01/25/2025 8:40 AM EDT Routine [facility] [address] [facility] [place] [id number] Cb Canales, DO [address] [place] [address] [facility] Start: 01-11-2025 End: 01-11-2026 Bile acids, total Bile acids, total Lab Routine Pruritus Expected: 01/11/2025 (Approximate), Expires: 01/11/2026 [facility] Comment on above: Expected: 01/11/2025 (Approximate), Expires: 01/11/2026 Start: 01-11-2025 End: 01-11-2026 CBC W Auto Differential panel - Blood CBC and differential Lab Routine Pruritus Expected: 01/11/2025 (Approximate), Expires: 01/11/2026 [facility] Comment on above: Expected: 01/11/2025 (Approximate), [...] EDT Routine [facility] [address] [place] [phone] Cb Canales, [address] [place] [address] [facility] Start: 12-28-2024 End: 12-28-2024 Professional / ancillary services management 12/28/2024 9:00 AM EDT Ancillary Procedure [facility] [address] [place] [phone] [facility] Start: 12-06-2024 End: 04-07-2025 [...] mellitus screening Expected: 11/15/2024 (Approximate), Expires: 11/15/2025 [facility] Work Phone: Comment on above: Expected: 11/15/2024 (Approximate), Expires: 11/15/2025 Start: 11-15-2024 End: 11-15-2025 Measurement of glucose 1 hour after glucose challenge for glucose tolerance test Glucose tolerance, 1 hour Lab Routine Diabetes mellitus screening Expected: 11/15/2024 (Approximate), Expires: 11/15/2025 [facility] Comment on above: Expected: 11/15/2024 (Approximate), Expires: 11/15/2025 Start: 11-15-2024 End: 11-15-2024 Patient encounter procedure 11/15/2024 1:10 PM EDT Routine [facility] [address] [place] [phone] Cb Canales DO [address] [place] [address] [facility] Start: 10-18-2024 End: 10-18-2024 Patient encounter procedure 10/18/2024 2:30 PM EDT Routine [facility] [address] [facility] [place] [address] Maryanne Covarrubias PA [address] [place] [address] [facility] Start: 10-18-2024 End: 10-18-2024 Professional / ancillary services management 10/18/2024 1:00 PM EDT Ancillary Procedure [facility] [address] [place] [address] [facility] Start: 09-21-2024 End: 09-21-2024 Patient encounter procedure 09/21/2024 3:20 PM EST Routine [facility] [address] [place] [phone] Maryanne Covarrubias PA [address] [place] [address] Arrived [facility] Comment on above: Arrived Start: 09-21-2024 End: 11-19-2024 Alpha fetoprotein, maternal Alpha fetoprotein, maternal Lab Routine Screening, , for anatomic survey Expected: 09/21/2024 (Approximate), Expires: 11/19/2024 [facility] Comment on above: Expected: 09/21/2024 (Approximate), Expires: 11/19/2024 Start: 09-21-2024 End: 09-21-2025 Measurement of glucose 1 hour after glucose challenge for glucose tolerance test Glucose tolerance, 1 hour Lab Routine Diabetes mellitus screening Expected: 09/21/2024 (Approximate), Expires: 09/21/2025 [facility] Comment on above: Expected: 09/21/2024 (Approximate), Expires: 09/21/2025 Start: 09-21-2024 End: 09-21-2025 US for US OB 14+ weeks anatomy scan Imaging Routine Screening, , for anatomic survey Expected: 09/21/2024, Expires: 09/21/2025 [facility] Comment on above: Expected: 09/21/2024 , Expires: 09/21/2025 Start: 09-21-2024 End: 09-21-2024 Patient encounter procedure 09/21/2024 9:30 AM EST Routine [facility] [address] [place] [phone] Maryanne Covarrubias PA [address] [place] [address] [facility] Start: 08-17-2024 End: 08-17-2024 Patient encounter procedure [facility] Comment on above: Arrived Start: 07-18-2024 End: 07-18-2025 ABO/Rh ABO/Rh Lab Routine Missed menses , unspecified gestational age Expected: 07/18/2024 (Approximate), Expires: 07/18/2025 [facility] Healthcare Comment on above: Expected: 07/18/2024 (Approximate), Expires: 07/18/2025 Start: 07-18-2024 End: 07-18-2025 Blood type and Indirect antibody screen panel - Blood Type and screen Lab Routine Missed menses , unspecified gestational age Expected: 07/18/2024 (Approximate), Expires: 07/18/2025 [facility] Work Phone: Comment on above: Expected: 07/18/2024 (Approximate), Expires: 07/18/2025 Start: 07-18-2024 End: 07-18-2025 Drugs of abuse panel - Urine by Screen method Rapid drug screen, urine Lab Routine , unspecified gestational age Encounter for supervision of normal first in first trimester Expected: 07/18/2024 (Approximate), Expires: 07/18/2025 [facility] Comment on above: Expected: 07/18/2024 (Approximate), Expires: 07/18/2025 Start: 07-18-2024 End: 07-18-2025 US Pelvis transvaginal US OB transvaginal Imaging Routine Missed menses Expected: 07/18/2024 (Approximate), Expires: 07/18/2025 [facility] Comment on above: Expected: 07/18/2024 (Approximate), Expires: 07/18/2025 Start: 07-18-2024 End: 07-18-2024 ambulatory 07/18/2024 10:30 AM EST Initial [facility] [address] [place] [phone] [facility] Start: 07-18-2024 End: 07-18-2024 Professional / ancillary services management 07/18/2024 10:00 AM EST Ancillary Procedure [facility] [address] [place] [phone] [facility] Bacteria identified in Urine by Culture Urine culture Microbiology Routine Missed menses Ordered: 07/18/2024 [facility] Comment on above: Ordered: 07/18/2024 CBC W Auto Differential panel - Blood CBC and differential Lab Routine Missed menses , unspecified gestational age Ordered: 07/18/2024 [facility] Comment on above: Ordered: 07/18/2024 CHLAMYDIA TRACHOMATI S (GENITO/STI) CHLAMYDIA TRACHOMATIS (GENITO/STI) Lab Routine STD exposure Vaginal discharge Ordered: 09/21/2024 [facility] Comment on above: Ordered: 09/21/2024 Hemoglobin A1c/Hemoglobin.total in Blood Hemoglobin A1c Lab Routine Missed menses , unspecified gestational age Ordered: 07/18/2024 [facility] Comment on above: Ordered: 07/18/2024 Hepatitis B virus surface Ag [Presence] in Serum or Plasma by Immunoassay Hepatitis B surface antigen Lab Routine Missed menses , unspecified gestational age Ordered: 07/18/2024 [facility] Comment on above: Ordered: 07/18/2024 Hepatitis C virus Ab [Presence] in Serum or Plasma by Immunoassay Hepatitis C antibody Lab Routine Missed menses , unspecified gestational age Ordered: 07/18/2024 [facility] Healthcare Comment on above: Ordered: 07/18/2024 HIV-1/HIV-2 antigen/antibody combination immunoassay HIV-1 and HIV-2 antibodies Lab Routine Missed menses , unspecified gestational age Ordered: 07/18/2024 [facility] Comment on above: Ordered: 07/18/2024 Neisseria gonorrhoea e DNA [Presence] in Unspecified specimen by ISAURO with probe detection Neisseria gonorrhea DNA probe, direct Lab Routine STD exposure Vaginal discharge Ordered: 09/21/2024 [facility] Healthcare Comment on above: Ordered: 09/21/2024 Reagin Ab [Presence] in Serum by RPR RPR Lab Routine Missed menses , unspecified gestational age Ordered: 07/18/2024 [facility] Comment on above: Ordered: 07/18/2024 Rubella antibody, IgG Rubella an tibody, IgG Lab Routine Missed menses , unspecified gestational age Ordered: 07/18/2024 [facility] Comment on above: Ordered: 07/18/2024 SURESWAB(R) ADVANCED VAGINITIS PLUS, TMA SURESWAB(R) ADVANCED VAGINITIS PLUS, TMA Pathology and Cytology Routine STD exposure Vaginal discharge Ordered: 09/21/2024 [facility] Work Phone: Comment on above: Ordered: 09/21/2024 Immunizations Immunization Date Immunization Notes Care Provider Chase sequeira 03-17-2021 Human Papillomavirus 9-valent vaccine Almaz Deanna Other [facility] Other 02-10-2021 Do not use COVID-19 Pfizer 2 dose Almaz Deanna Other [facility] Other 08-04-2016 Human Papillomavirus 9-valent vaccine Almaz Deanna Other [facility] Other 05-22-2016 Human Papillomavirus 9-valent vaccine Almaz Deanna Other [facility] Other 07-29-2015 hepatitis A vaccine, pediatric/adolescent dosage, 2 dose schedule Almaz Deanna Other [facility] Other 04-02-2007 hepatitis A vaccine, pediatric/adolescent dosage, 2 dose schedule Almaz Deanna Other [facility] Other 04-14-2005 diphtheria, tetanus toxoids and acellular pertussis vaccine, 5 pertussis antigens Almaz Deanna Other [facility] Other 10-09-2004 measles, mumps and rubella virus vaccine Almaz Deanna Other [facility] Other 04-21-2004 DTaP-hepatitis B and poliovirus vaccine Almaz Deanna Other [facility] Other 04-21-2004 haemophilus influenz ae type b vaccine, PRP-T conjugate Almaz Deanna Other [facility] Other 02-19-2004 DTaP-hepatitis B and poliovirus vaccine Almaz Deanna Other [facility] Other 02-19-2004 haemophilus influenz ae type b vaccine, PRP-T conjugate Almaz Deanna Other [facility] Other 2003 DTaP-hepatitis B and poliovirus vaccine Almaz Deanna Other [facility] Other 2003 haemophilus influenz ae type b vaccine, PRP-T conjugate Almaz Deanna Other [facility] Other 2003 hepatitis B vaccine, pediatric or pediatric/adolescent dosage Almaz Deanna Other [facility] Other Payers Date Payer Category Payer Self-pay 2021 Private Health Insurance 2003 Unknown [id number] 2.16.8 [id number] 2003 Unknown [id number] 2.16. [id number] 2003 Unknown [id number] 2.16.8 [id number] 2003 Unknown [id number] 2.16.8 [id number] 2003 Unknown [id number] 2.16.84 [id number] 2003 Unknown [id number] 2.16.84 0.1.998556.3.579.2.1259 2003 Unknown [id number] 2.16.84 0.1.888627.3.579.2.1259 2003 Unknown [id number] 2.16.84 0.1.410836.3.579.2.1259 2003 Unknown [id number] 2.16.84 0.1.315826.3.579.2.9 2003 Unknown [id number] 2.16.84 [id number] 2003 Unknown [id number] 2.16.84 0.1.118686.3.579.2.1258 2003 Unknown [id number] 2.16.84 0.1.456029.3.579.2.1259 2003 Unknown [id number] 2.16.84 0.1.429637.3.579.2.9 2003 Unknown [id number] 2.16.84 0.1.808712.3.579.2.1259 1959 Unknown [id number] 1959 Unknown [id number] 1959 Unknown [id number] 2.16.84 [id number] Unknown [id number] 2.16.8 [id number] Social History Date Type Detail Facility Unknown if ever smoked [facility] Other Sex Assigned At [facility] Other Tobacco smoking status MNIS Tobacco smoking consumption unknown [facility] Start: 2003 Sex assigned at Not on file [facility] Start: 06-10-2024 [facility] Clinical Notes 01-21-2022 to 01-25-2025 JANETH Ji - 01/25/2025 8:40 AM JANETH Blanca - 01/11/2025 1:30 PM Jessica Rodríguez LPN - 12/28/2024 9:50 AM Luca Gunter NP - 12/06/2024 1:20 PM EDT [...] ASSESSMENT & PLAN ICD-10-CM 1. Third trimester ([facility]) Z34.93 POCT urinalysis dipstick manually resulted 2. 34 weeks gestation of ([facility]) Z3A.34 Return OB: Patient presents today [...] Cb Canales DO documented in this encounter [facility] 01-11-2025 History of Presen t illness Narrative [...] of: JANETH Ji documented in this encounter [facility] 12-28-2024 History of Presen t illness Narrative [...] nursing note reviewed. Exam conducted with a senior reservoir engineer present. Vitals: There is no height or [...] Cb Canales DO documented in this encounter [facility] 12-06-2024 History of Presen t [...] nursing note reviewed. Exam conducted with a senior reservoir engineer present. Vitals: There is no height or [...] week for routine OB appointment. Documented by Donavan Gunter NP on behalf of: Donavan Gunter NP documented in this encounter [facility] 11-15-2024 History of Presen t [...] nursing note reviewed. Exam conducted with a senior reservoir engineer present. Vitals: There is no height or [...] by Aparna Vasquez LPN on behalf of: Cb Canales DO documented in this encounter [facility] 10-18-2024 History of Presen t [...] of: JANETH Ji documented in this encounter [facility] 09-21-2024 History of Presen t [...] of: JANETH Ji documented in this encounter [facility] 08-17-2024 History of Presen t [...] nursing note reviewed. Exam conducted with a senior reservoir engineer present. Vitals: There is no height or [...] or undercooked meat, and stay away from [facility]. Patient has been consulted regarding any further [...] Cb Canales DO documented in this encounter [facility] 07-18-2024 History of Presen t [...] or undercooked meat, and [facility] from [facility] Patient has also been advised to not [...] Jazmyne Oliveira MA documented in this encounter [facility] 09-17-2023 Evaluation note Encounter Date [...] understanding and is agreeable to treatment plan. [facility] Other 01-25-2024 Evaluation note* Encounter Date Diagnosis [...] and no personal patient information was compromised. [facility] Other 12-19-2023 Evaluation note* Encounter Date Diagnosis [...] (ICD-10 - F32.1) See above treatment plan. [facility] Other 06-15-2022 Evaluation note* Encounter Date Diagnosis Assessment Notes Treatment Notes Treatment Clinical Notes Jan, Pre-employment examination (ICD-10 - Z02.1) [facility] Other Evaluation note* Diagnosis Missed menses , [...] Reported* Type Description Date Medical History vertigo [facility] Other Reason for referral (narrative)* Reason Refer to [facility] or counseling for anxiety and depression Diagnosis 1 MATTHIAS (generalized anx iety disorder) (F41.1) Referral Organization [facility] Wick Referring Provider First Name Sheree Referring Provider Last Name Jonatan Referring Provider Specialty Nurse Praclaura grullon Referred Provider Specialty Psychiatry Referral Priority Routine [facility] Other Summary Purpose Family History No Family [...] and content) DATE CREATED AUTHOR 04/10/2022 [facility] DATE CREATED AUTHOR AUTHOR'S ORGANIZ ATION 08/13/2023 Kyle Yang [facility] DATE CREATED AUTHOR AUTHOR'S ORGANIZ ATION 08/09/2024 [facility] DATE CREATED AUTHOR AUTHOR'S ORGANIZ ATION 01/20/2025 [facility] DATE CREATED AUTHOR AUTHOR'S ORGANIZ ATION 01/28/2025 [facility] Special[facility] EPIC Care Teams (unrecognized sec tion and content) Technical Communicator Relationship Specialty Start Date End Date Hazel Grady MD [address] [place], [place] [id number] PCP - General Family Medicine 07/18/24 Technical Communicator Relationship Specialty Start Date End Date Hazel Grady MD [address] [place] [address] PCP - General Family Medicine 07/18/24 Technical Communicator Relationship Specialty Start Date End Date Hazel Grady MD [address], [place] [id number] PCP - General Family Medicine 07/18/24 Technical Communicator Relationship Specialty Start Date End Date Hazel Grady MD [address] [place] [address] PCP - General Family Medicine 07/18/24 Technical Communicator Relationship Specialty Start Date End Date Hazel Grady MD [address], [place] [id number] PCP - General Family Medicine 07/18/24 Technical Communicator Relationship Specialty Start Date End Date Hazel Grady MD [address] [facility] [place] [address] PCP - [facility] 07/18/24 Technical Communicator Relationship Specialty Start Date End Date Hazel Grady MD [address] [place] [address] PCP - [facility] 07/18/24 Technical Communicator Relationship Specialty Start Date End Date Hazel Grady MD [address] [place] [address] PCP - [facility] 07/18/24 Technical Communicator Relationship Specialty Start Date End Date Hazel Grady MD [address] [facility] [place] [address] PCP - [facility] 07/18/24 Technical Communicator Relationship Specialty Start Date End Date Hazel Grady MD [address] [facility] [place] [address] PCP - [facility] 07/18/24 Technical Communicator Relationship Specialty Start Date End Date Hazel Grady MD [address] [place] [facility] [address] [facility] 07/18/24 FOR RECORDS PERTAINING TO PATIENTS WHO [...] BE BASED ON THE PRIMARY CLINICAL RECORDS. [facility] [employer] [facility]. provides no warranty or guarantee of the accuracy or completeness of information in this document.
== END 2025-01-31 17:10 | disposition home or self-care (01) ==
LOC: FBC 02-01 08:05 → US 02-01 08:18
PROVIDERS: PCP Family Medicine; Visit Provider Obstetrics & Gynecology
DX: O41.03X0 Oligohydramnios, third trimester, not applicable or unspecified (principal); Z3A.35 35 weeks gestation of pregnancy
CPT/HCPCS: 36415; 76818; 82565; 82570; 84156; 84450; 84460; 84520; 84550; 85025; 85384; 85610; 85730; 96372; J0702; J2300; J2550

== ENCOUNTER 2025-02-01 08:20 | Outpatient (RCR) | payer OTHER, SELFPAY ==
[2025-02-01 11:48] VITALS: BP 130/79; PULSE 97; TEMP 36.8; O2SAT 92
[2025-02-01] MEDS: BETAMETHASONE ACE/BETAMETHASONE SOD PHOS 30 MG/5 ML 12 MG IM (11:52)
== END 2025-02-05 23:59 | disposition home or self-care (01) ==
LOC: INF 08:20
PROVIDERS: PCP Family Medicine; Visit Provider Obstetrics & Gynecology
DX: O41.00X0 Oligohydramnios, unspecified trimester, not applicable or unspecified (principal); Z3A.00 Weeks of gestation of pregnancy not specified; O16.9 Unspecified maternal hypertension, unspecified trimester
CPT/HCPCS: 84156; 87081; 96372; J0702

== ENCOUNTER 2025-02-01 11:43 | Outpatient (REF) | payer OTHER, SELFPAY ==
--- OUTSIDE RECORDS SUMMARY | 2016-05-22 10:00 | XMS_ITS | Continuity of Care Document ---
Author Organization [facility] Address [address] [facility] [place] [address] Phone Care Team Providers Care Automotive Tire Tester Name Role Phone Floyd WANG, Selvin Unavailable [...] Diagnoses Date Provider Providers Copied on Encounter [facility], [address] [facility] [address], [place], [place], [address], [place] tel:[phone] [facility] vaccine adm. (chief complaint) No Information 6 Floyd Montalvo. [address] [address], [place], [place], [address], [place]. tel:[phone] Referring Provider: Selvin Bell, [address] [address], [place], [address] . tel:[phone] [facility], [address] [place] [address] [address], [place], [place], [address], [place] tel:[phone] [facility] No Information 6 No Information [facility], [address] [place] [address] [address], [place], [place], [address], [place] tel:[phone] [facility] No Information 5 Floyd Montalvo. [address] [address], [place], [place], [address], [place]. tel:[phone] PREV VISIT, NEW, AGE 5-11 [facility], [address] [place] [address] [address], [place], [place], [address], [place] tel:[phone] [facility] Well child (chief complaint) Encntr for routine child health exam w/o abnormal findings 5 Ahmet Snyder. [address], [address], [place]. tel:[phone] Referring Provider: Lillian Leo MD, [address], [address]. tel:[phone] Family History Family Member Type Diagnosis Age [...] Registry Payers Payer name Insurance type Covered democrat ID Authoriza tion(s) Medicaid [place] [id number] Medicaid [place] [id number] Medicaid [place] [id number] [facility] [id number] Social History Type Description Quantity Date [...] given Menactra a nd HPV Well child Well child (comments) new foster placement last Wednesday. Previously lived with maternal grandmother. Mom and dad recently ; kids witnessed fighting bewteen parents. Functional Status Date Functional Assessmen t No [...]
--- OUTSIDE RECORDS SUMMARY | 2023-08-23 10:15 | XMS_ITS ---
Author Organization [facility] Address [address] [place] [address] Care Team Providers Care Painting And Coating Worker Name Role Phone Amanda Wilson Primary Care Provider REASON FOR VISIT NEW PT REFERRAL FROM [facility] Encounters Encounter Location Date Provider Diagnosis [facility] [address] [place] [address] 08/23/2023 Amanda Wilson Plan Of Treatment No Information Progress Notes * YUMIKO DOEEDOB: [birth year] (19 yo F)Acc No.[id number]:08/23/2023 Consult - Patient Patient: JIMBO PICHARDO Provider: JOSEPH Dumont :2005 A ge:17 Y S ex:Female Date:08/23/2023 Address:[address], [place], [id number] Subjective: * Chief Complaints: * 1 . NEW PT REFERRAL FROM [facility]. Objective: Therapeutic Interventions: Assessment: Plan: * Images: Care Plan Details* * Electronic signature of JOSEPH Sheikh on 02/01/2025 at 11:47 AM EDT Sign off status: Pending * Provider: JOSEPH Dumont Date: 08/23/2023 Generated for Jessyi ng/Faxing/eTransmitting on: 0 02/01/2025 11:47 AM EDT
--- OUTSIDE RECORDS SUMMARY | 2025-01-25 08:40 | XMS_ITS | Encounter Summary ---
Author Organization [facility] Address [address] [facility] [place] [address] Care Team Providers Care Welder Journeyman Name Role Phone David Awan MD Primary Care Provider [phone] Reason for Visit * Reason Comments Routine Visit Encounter Details Date Type Department Care Team (Late st Contact Info) Description 01/25/2025 8:40 AM EDT Routine [facility] B[facility] OB [address] [place] [phone] Cb Canales, DO [address] [facility] [place] [address] Third trimester ([facility]); 34 weeks gestation of ([facility]) Social History Tobacco Use Types Packs/Day [...] ASSESSMENT & PLAN ICD-10-CM 1. Third trimester ([facility]) Z34.93 POCT urinalysis dipstick manually resulted 2. 34 weeks gestation of ([facility]) Z3A.34 Return OB: Patient presents today [...] Care Team (Late st Contact Info) Description 02/12/2025 1:50 PM EDT Office Visit [facility] BCP OB [address] [facility] [place] [address] Maryanne Whiteside PA [address] [facility] [place] [address] documented as of this encounter Procedures Procedure Name Priority Date/Time Associated Diagnosis Comments POCT URINALYSIS DIPSTICK Routine 01/25/2025 9:22 AM EDT Third trimester ([facility]) documented in this encounter Results * [...] this encounter Visit Diagnoses Diagnosis Third trimester ([facility]) state, incidental 34 weeks gestation of ([facility]) documented in this encounter Care Teams Welder Journeyman Relationship Specialty Start Date End Date David Awan MD [address] [place] [address] PCP - General Family Medicine 07/18/24 documented as of this encounter
--- OUTSIDE RECORDS SUMMARY | 2025-02-01 08:50 | XMS_ITS | Encounter Summary ---
Author Organization [facility] Address [address] [place] [address] Care Team Providers Care Waste Disposal Attendant Name Role Phone David Awan MD Primary Care Provider [phone] Reason for Visit * Reason Comments Routine Visit Encounter Details Date Type Department Care Team (Late st Contact Info) Description 02/01/2025 8:50 AM EDT Routine [facility] [address] [facility] [place] [address] Maryanne Whiteside PA [address] [place], [place] [address] 35 weeks gestation of ([facility]); Third trimester ([facility]); Pruritus; Oligohydramnios in third trimester, fetus 1 of multiple gestation ([facility]); SGA (small for gestational age) ([facility]); headache in third trimester ([facility]) Social History Tobacco Use Types Packs/Day [...] this encounter Progress Notes * Madeline Toribio, PROCESS MOLD TECHNICIAN - 02/01/2025 8:50 AM EDT Reason for [...] nursing note reviewed. Exam conducted with a display screen fabricator present. Vitals: There is no height or [...] EDT Office Visit [facility] [address] [facility] [place] [phone] Maryanne Whiteside PA [address] [place] [address] Scheduled Orders Name Type Priority Associated Diagnoses Orde r Schedule CULTURE, GROUP B STREP WITH SUSCEPTIBLITY Lab Routine Third trimester ([facility]) Expected: 02/01/2025, Expires: 02/01/2026 documented as of this encounter Procedures Procedure Name Priority Date/Time Associated Diagnosis Comments POCT URINALYSIS DIPSTICK Routine 02/01/2025 9:19 AM EDT 35 weeks gestation of ([facility]) Third trimester ([facility]) Pruritus Oligohydramnios in third trimester, fetus 1 of multiple gestation ([facility]) documented in this encounter Results * (ABNORMAL) [...] Visit Diagnoses Diagnosis 35 weeks gestation of ([facility]) Third trimester ([facility]) state, incidental Pruritus Unspecified pruritic disorder Oligohydramnios in third trimester, fetus 1 of multiple gestation ([facility]) SGA (small for gestational age) ([facility]) Gmrro-tsg-mnosa without mention of malnutrition, unspecified (weight) headache in third trimester ([facility]) documented in this encounter Care Teams Waste Disposal Attendant Relationship Specialty Start Date End Date David Awan MD [address] [place] [address] PCP - General Family Medicine 07/18/24 documented as of this encounter
--- OUTSIDE RECORDS SUMMARY | 2025-02-01 11:47 | XMS_ITS | Patient Health Record ---
Author Organization [facility] [employer] Address [address] [place] [address] Care Team Providers Care Custom Harvester Name Role Phone Amanda Wilson Primary Care Provider [phone] Reason For Referral No Information Plan Of Treatment No Information Insurance Providers Payer Name Payer Address Payer Phone Subscriber Number Group Number Insured Name Patient Relationship to Insured Coverage Start Date Coverage End Date [facility] [address] [address] [place] [phone] [id number] JIMBO DOE Self - patient is the insured 3
--- OUTSIDE RECORDS SUMMARY | 2025-02-01 11:47 | XMS_ITS | Encounter Summary ---
Author Organization [facility] Address [address] [place] [address] Care Team Providers Care Bite Block Maker Name Role Phone Hazel Grady MD Primary Care Provider [phone] Encounter Details Date Type Department Care Team (Late st Contact Info) Description 01/31/2025 Clinisync Result Encounter NOMS External Department Unsolicited oYgesh Canales DO [address] [place], [place] [address] Social History Tobacco Use Types Packs/Day Years [...] EDT Office Visit [facility] BCP OB [address] [facility] [phone] Maryanne Whiteside PA [address] [place] [address] documented as of this encounter Procedures Procedure Name Priority Date/Time Associated Diagnosis Comments TBH CREATININE Routine 01/31/2025 11:36 AM EDT SRMCOH PROTHROMBIN TIME INR W/O COUM Routine 01/31/2025 11:36 AM EDT MHPT FIBRINOGEN Routine 01/31/2025 11:36 AM EDT CCF AST Routine 01/31/2025 11:36 AM EDT C[facility] APTT Routine 01/31/2025 11:36 AM EDT CCF ALT Routine 01/31/2025 11:36 AM EDT ALL URIC ACID Routine 01/31/2025 11:36 AM EDT ALL CBC WITH AUTO DIFF Routine 01/31/2025 11:36 AM EDT ALL BUN Routine 01/31/2025 11:36 AM EDT TBH URINE T PROTEIN CREAT RATIO Routine 01/31/2025 11:30 AM EDT US OB BPP W NON-STRESS 01/31/2025 11:08 AM EDT documented in this encounter Results * (ABNORMAL) MHPT FIBRINOGEN (01/31/2025 11:36 AM EDT) FIBRINOGEN 469(H) 200 - 400 mg/dL TBH 01/31/2025 11:3 6 AM EDT 01/31/2025 11:41 AM EDT Narrative CLINISYNC - 01/31/2025 12:22 PM EDT us Yogesh Ally DO CLINISYNC Final Result [facility] * CCF APTT (01/31/2025 11:36 AM EDT) PARTIAL THROMBOPLASTIN TIME 26.7 22.3 - 36.2 sec TBH 01/31/2025 11:3 6 AM EDT 01/31/2025 11:41 AM EDT Narrative CLINISYNC - 01/31/2025 12:22 PM EDT Yogesh Herrerao DO CLINISYNC Final Result Performing Organization Address [facility] Co de Phone Number [facility] * SRMCOH PROTHROMBIN TIME INR W/O COUM (01/31/2025 11:36 AM EDT) PROTHROMBIN TIME 9.8 9.0 - 11.6 sec TBH TBH INR <0.93 TBH Comment: DESIRED INR: 2.0-3.0 CONDITIONS NOT LISTED BELOW 2.5-3.5 FOR PROSTHETIC HEART VALVE REPLACEMENT 2.5-3.5 RECURRENT THROMBOSIS 01/31/2025 11:3 6 AM EDT 01/31/2025 11:41 AM EDT Narrative CLINISYNC - 01/31/2025 12:22 PM EDT Yogesh Herrerao CLINISYNC Final Result Performing Organization Address [facility] Co de Phone Number [facility] * (ABNORMAL) CCF ALT (01/31/2025 11:36 AM EDT) ALANINE AMINOTRANSFERASE 13(L) 14 - 59 U/L TB 01/31/2025 11:3 6 AM EDT 01/31/2025 11:41 AM EDT Narrative CLINISYNC - 01/31/2025 12:02 PM EDT Yogesh Herrerao DO WERNERISYNC Final Result Performing Organization Address [facility]/ZIP Co de Phone Number [facility] * (ABNORMAL) CCF AST (01/31/2025 11:36 AM EDT) ASPARTATE AMINO TRANSFERASE 11(L) 15 - 37 U/L TBH 01/31/2025 11:3 6 AM EDT 01/31/2025 11:41 AM EDT Narrative CLINISYNC - 01/31/2025 12:02 PM EDT Yogesh Ally DO CLINISYNC Final Result [facility] * ALL URIC ACID (01/31/2025 11:36 AM EDT) URIC ACID 3.7 2.6 - 6.0 mg/dL TBH 01/31/2025 11:3 6 AM EDT 01/31/2025 11:41 AM EDT Narrative CLINISYNC - 01/31/2025 12:02 PM EDT Yogesh Ally DO CLINISYNC Final Result Performing Organization Address [facility] Co de Phone Number [facility] * (ABNORMAL) TBH CREATININE (01/31/2025 11:36 AM EDT) CREATININE 0.46(L) 0.55 - 1.02 mg/dL TBH TBH EGFR-AF JORDANIAN >60 >=60 mL/min/1.7 3m 2 TBH TBH EGFR-NON AF JORDANIAN >60 >=60 mL/min/1.7 3m 2 TBH 01/31/2025 11:3 6 AM EDT 01/31/2025 11:41 AM EDT Narrative CLINISYNC - 01/31/2025 12:02 PM EDT Yogesh Ally DO CLINISYNC Final Result Performing Organization Address [facility] Co de Phone Number [facility] * (ABNORMAL) ALL BUN (01/31/2025 11:36 AM EDT) BLOOD UREA NITROGEN 5.0(L) 7.0 - 18.0 mg/dL TBH 01/31/2025 11:3 6 AM EDT 01/31/2025 11:41 AM EDT Narrative CLINISYNC - 01/31/2025 12:02 PM EDT Yogesh Ally DO CLINISYNC Final Result CLINISYNC TB * (ABNORMAL) ALL CBC WITH AUTO DIFF (01/31/2025 11:36 AM EDT) Pathologist [facility] TBH WBC 10.4 4.0 - 11.0 10 3/uL TBH TBH RBC 3.67(L) 4.20 - 5.40 10 6/uL TBH TBH HGB 10.2(L) 12.0 - 16.0 g/dL TBH TBH HCT 29.9(L) 36.0 - 48.0 % TBH TBH MCV 81.5 81.0 - 99.0 fL TBH TBH MCH 27.8 26.7 - 34.0 pg TBH TBH MCHC 34.1 29.9 - 35.2 g/dL TBH TBH RDW 13.3 11.0 - 15.0 % TBH TBH PLT 242 150 - 450 10 3/uL TBH TBH MPV 9.4(L) 9.5 - 13.5 fL TBH NEUTROPHILS PERCENT AUTO 79.6(H) 43.0 - 75.0 % TBH LYMPHOCYTES PERCENT AUTO 13.8(L) 20.5 - 60.0 % TBH MONOCYTES PERCENT AUTO 5.7 1.7 - 12.0 % TBH TBH EO % 0.3(L) 0.9 - 7.0 % TBH BASOPHILS PERCENT AUTO 0.1(L) 0.2 - 2.0 % TBH IMMATURE GRANULOCYTES PCT AUTO 0.5 0.0 - 0.5 % TBH NEUTROPHILS ABSOLUTE AUTO 8.3(H) 1.4 - 6.5 10 3/uL TBH LYMPHOCYTES ABSOLUTE AUTO 1.4 1.2 - 3.8 10 3/uL TBH MONOCYTES ABSOLUTE AUTO 0.6 0.3 - 0.8 10 3/uL TBH TBH EO # 0.0 0.0 - 0.7 10 3/uL TBH BASOPHILS ABSOLUTE AUTO 0.0 0.0 - 0.1 10 3/uL TBH IMMATURE GRANULOCYTES ABS AUTO 0.05(H) 0.00 - 0.03 10 3/uL TBH 01/31/2025 11:3 6 AM EDT 01/31/2025 11:41 AM EDT Narrative CLINISYNC - 01/31/2025 11:55 AM EDT Yogesh Herrerao DO CLINISYNC Final Result Performing Organization Address City/[facility] Co de Phone Number CLINIKEMS TB * TBH URINE T PROTEIN CREAT RATIO (01/31/2025 11:30 AM EDT) TOTAL PROTEIN URINE RANDOM 8.3 <=11.9 mg/dL TBH CREATININE URINE RANDOM 42.26 20.00 - 300.00 mg/dL TBH PROTEIN CREATININE RATIO URINE 0.20 TBH 01/31/2025 11:3 0 AM EDT 01/31/2025 11:41 AM EDT Narrative WERNERISYMS - 01/31/2025 1:06 PM EDT Yogesh Allydelvis ROSARIO Final Result Performing Organization Address [facility] de Phone Number [facility] * US OB BPP W NON-STRESS (01/31/2025 11:08 AM EDT) Anatomical Region Laterality Modality Other 01/31/2025 11:0 8 AM EDT Narrative 01/31/2025 11:11 [place] [address] Ultrasound Report Signed Patient: FRANCES DOE MR#: [id number] : 2005 Acct:[id number] Age/Sex: 19 / F ADM Date: 01/31/25 Loc: [facility] 254-[address]: Yogesh Canales D.O. Ordering Physician: Yogesh Canales D.O. Date of Service: 01/31/25 Procedure(s): US OB BPP w non-stress Accession Number(s): [id number] cc: Yogesh Canales D.O.; HAZEL GRADY [place] [id number] Patient Name: FRANCES DOE MRN: [id number] date: 2005 Sex: F Assigned Patient Location: [facility] Current Patient Location: [facility] Accession/Order Number: [id number] Exam Date: 01/31/2025 11:05 Report Date: 01/31/2025 11:08 At the request of: YOGESH CANALES DO Procedure: US OB BPP w non-stress BIOPHYSICAL PROFILE: CLINICAL INFORMATION: Oligohydramnios COMPARISON: 01/25/2025 There is a single live intrauterine gestation in cephalic presentation. The reported gestational age is 35 weeks 4 days. The heart rate [id number] beats per minute. FINDINGS: TONE: 1 or [...] Nascimento M.D. 01/31/2025 11:08 AM Dictation Location: [place] [address] Electronically authenticated by: [id number] Y Date: 01/31/2025 11:08 Dictated By: Aparna Nascimento M.D. Signed By: 01/31/25 1111 DD/ 1108 TD/TT: District Wire Chief: Procedure Note Radiology, Radiologist, MD - 01/31/2025 [place] [address] Ultrasound Report Signed Patient: FRANCES DOE RMR#: [id number] : 2005Acct:[id number] Age/Sex: 19 / FADM Date: 01/31/25 Loc: [facility] 254-[address]: Yogesh Canales D.O. Ordering Physician: Yogesh Canales D.O. Date of Service: 01/31/25 Procedure(s): US OB BPP w non-stress Accession Number(s): [id number] cc: Yogesh Canales D.O.; HAZEL GRADY [address] [address] Patient Name: FRANCES DOE MRN: [facility]:[id number] date: 2005 Sex: F Assigned Patient Location: [facility] Current Patient Location: [facility] Accession/Order Number: [id number] Exam Date: 01/31/2025 11:05 Report Date: 01/31/2025 11:08 At the request of: YOGESH CANALES DO Procedure: US OB BPP w non-stress BIOPHYSICAL PROFILE: CLINICAL INFORMATION: Oligohydramnios COMPARISON: 01/25/2025 There is a single live intrauterine gestation in cephalic presentation.The reported gestational age is 35 weeks 4 days. The heart [id number] beats per minute. FINDINGS: TONE: 1 or [...] Nascimento M.D. 01/31/2025 11:08 AM Dictation Location: [place] [address] Electronically authenticated by: [id number] Y Date: 1:08 Dictated By: Aparna Nascimento M.D. Signed By:01/31/25 1111 DD/ 1108 TD/TT: District Wire Chief: Yogesh Canales DO [facility] IMAGING Final Result documented in this encounter Visit Diagnoses Not on filedocumented in this encounter Care Teams Bite Block Maker Relationship Specialty Start Date End Date Hazel Grady MD [address] [place] [id number] PCP - General Family Medicine 07/18/24 documented as of this encounter
--- OUTSIDE RECORDS SUMMARY | 2025-02-01 11:47 | XMS_ITS | Encounter Summary ---
Author Organization [facility] Address [address] [place] [address] Care Team Providers Care Marketing Summer Intern Name Role Phone Hazel Grady MD Primary Care Provider [phone] Encounter Details Date Type Department Care Team (Late st Contact Info) Description 01/25/2025 Clinisync Result Encounter NOMS External Department Unsolicited Yogesh Canales DO [address] [place], [place] [address] Social History Tobacco Use Types Packs/Day Years [...] EDT Office Visit [facility]S BCP OB [address] [facility] [place] [address] Maryanne Whiteside PA [address] [place] [address] documented as of this encounter Procedures Procedure Name Priority Date/Time Associated Diagnosis Comments US OB BPP W NON-STRESS 01/25/2025 3:01 PM EDT documented in this encounter Results * US OB BPP W NON-STRESS (01/25/2025 3:01 PM EDT) Anatomical Region Laterality Modality Other 01/25/2025 3:01 PM EDT Narrative 01/25/2025 3:04 [place] [address] Ultrasound Report Signed Patient: JIMBO DOE MR#: [id number] : 2005 Acct:[id number] Age/Sex: 19 / F ADM Date: 01/25/25 Loc: [facility] Attending Dr: Yogesh Canales D.O. Ordering Physician: Yogesh Canales D.O. Date of Service: 01/25/25 Procedure(s): US OB BPP w non-stress Accession Number(s): [id number] cc: Yogesh Canales D.O.; HAZEL GRADY [place] [address] Patient Name: JIMBO DOE MRN: [id number] date: 2005 Sex: F Assigned Patient Location: [facility] Current Patient Location: Accession/Order Number: [id number] Exam Date: 01/25/2025 14:59 Report Date: 01/25/2025 15:01 At the request of: YOGESH CANALES DO Procedure: US OB BPP w non-stress Biophysical profile. Reason for exam: Oligohydramnios. COMPARISON: BPP 01/24/2025. TECHNIQUE: Transabdominal imaging of the gravid uterus was obtained. FINDINGS: Metal Melter reports a BPP of 8 out of 8. JEROD is normal 11.4 cm. heart rate 159 bpm. US/US OB BPP w non-stress Impression: BPP 8 out of 8. Impression dictated by: Stanislav Francisco Jr., D.O. 01/25/2025 3:01 PM Dictation Location: [place] [address] Electronically authenticated by: [id number] Y Date: 01/25/2025 15:01 Dictated By: Stanislav Francisco M.D. Signed By: 01/25/25 1504 DD/ 1501 TD/TT: Cable Television Line Technician: Procedure Note Radiology, Radiologist, MD - 01/25/2025 [place] [address] Ultrasound Report Signed Patient: JIMBO DOE RMR#: [id number] : 2005Acct:[id number] Age/Sex: 19 / FADM Date: 01/25/25 Loc: [facility] Attending Dr: Yogesh Canales D.O. Ordering Physician: Yogesh Canales D.O. Date of Service: 01/25/25 Procedure(s): US OB BPP w non-stress Accession Number(s): [id number] cc: Yogesh Canales D.O.; HAZEL GRADY [place] [address] Patient Name: JIMBO DOE MRN: [id number] date: 2005 Sex: F Assigned Patient Location: [facility] Current Patient Location: Accession/Order Number: [id number] Exam Date: 01/25/2025 14:59 Report Date: 01/25/2025 15:01 At the request of: YOGESH CANALES DO Procedure: US OB BPP w non-stress Biophysical profile. Reason for exam: Oligohydramnios. COMPARISON: BPP 01/24/2025. TECHNIQUE: Transabdominal imaging of the gravid uterus was obtained. FINDINGS: Metal Melter reports a BPP of 8 out of 8. JEROD is normal 11.4 cm. heart rate 159 bpm. US/US OB BPP w non-stress Impression: BPP 8 out of 8. Impression dictated by: Stanislav Francisco Jr., D.O. 01/25/2025 3:01 PM Dictation Location: [place] [address] Electronically authenticated by: [id number] Y Date: 5:01 Dictated By: Stanislav Francisco M.D. Signed By:01/25/25 1504 DD/ 1501 TD/TT: Cable Television Line Technician: us Yogesh Ally DO [facility] Final Result documented in this encounter Visit Diagnoses Not on filedocumented in this encounter Care Teams Marketing Summer Intern Relationship Specialty Start Date End Date Hazel Grady MD [address] [place] [address] PCP - General Family Medicine 07/18/24 documented as of this encounter
--- OUTSIDE RECORDS SUMMARY | 2025-02-01 11:47 | XMS_ITS | Encounter Summary ---
Author Organization [facility] tem Address [id number] [address] [place] [address] Care Team Providers Care Arts And Humanities Council Director Name Role Phone Unavailable Primary Care Provider Unavailabl e Encounter Details Date Type Department Care Team (Late st Contact Info) Description 01/04/2025 Abstract Maternal- Medicine at [facility] [address] [place] [phone] Mike Lay MD [address] [facility] [address] [place] [address] Social History Tobacco Use Types Packs/Day Years [...] ORDERABLES Jessica l Result Performing Organization Address City/[facility] [address]/[facility] Co de Phone Number MANUALLY TRANSCRIBED RESULTS * Rubella IGG immune status (08/05/2024) Rubella immune IgG immune MANUALLY TRANSCRIBED RESULTS Blood Venous blood / Unknown us Not In System Ref Prov LAB BLOOD ORDERABLES Jessica l Result Performing Organization Address City/[facility] [address]/[facility] Co de Phone Number MANUALLY TRANSCRIBED RESULTS * Syphilis Total (Unknown Syphilis Status) (08/05/2024) Syphilis non reactive MANUALL Y TRANSCRIBED RESULTS Blood Venous blood / Unknown us Not In System Ref Prov LAB BLOOD ORDERABLES Jessica l Result MANUALLY TRANSCRIBED RESULTS documented in this encounter Visit Diagnoses Not on filedocumented in this encounter
--- OUTSIDE RECORDS SUMMARY | 2025-02-01 11:47 | XMS_ITS | Encounter Summary ---
Author Organization [facility] Address [address] [place] [address] Care Team Providers Care Chamber Magistrate Name Role Phone David Awan MD Primary Care Provider [phone] Encounter Details Date Type Department Care Team (Late st Contact Info) Description 07/18/2024 Abstract [facility] OB [address] [place] [phone] Cb Canales DO [address] [place] [address] [address] [place], [place] [phone] Social History Tobacco Use Types Packs/Day Years [...] 02/12/2025 1:50 PM EDT Office Visit [facility] OB [address] [address] Maryanne Whiteside PA [address] [facility] [address] [place], [place] [phone] documented as of this encounter Visit Diagnoses Not on filedocumented in this encounter Care Teams Chamber Magistrate Relationship Specialty Start Date End Date David Awan MD [address] [place] [address] PCP - General Family Medicine 07/18/24 documented as of this encounter
--- OUTSIDE RECORDS SUMMARY | 2025-02-01 11:47 | XMS_ITS | Encounter Summary ---
Author Organization [facility] Address [address] [place] [address] Care Team Providers Care Spa Assistant Manager Name Role Phone David Awan MD Primary Care Provider [phone] Encounter Details Date Type Department Care Team (Late st Contact Info) Description 01/18/2025 External Result Encounter [facility] BCP OB [address] [facility] [place] [address] Yogesh Canales DO [address] [facility] [address] [place], [facility] Social History Tobacco Use Types Packs/Day [...] EDT Office Visit [facility]CP OB [address] [facility] [place] [place] [address] Maryanne Whiteside PA [address] [place] [address] documented as of this encounter Procedures Procedure Name Priority Date/Time Associated Diagnosis Comments US OB 14+ WEEKS ANATOMY SCAN 01/18/2025 10:30 AM EDT documented in this encounter Results * US OB 14+ weeks anatomy scan (01/18/2025 10:30 AM EDT) Anatomical Region Laterality Modality Body Ultrasound 01/18/2025 10:3 0 AM EDT Narrative 01/18/2025 10:30 AM EDT THIS EXAM WAS PERFORMED AT [facility] NAME: BROOK CHOI : 2005 SEX: F Accession Number: [id number] ORDERING PHYSICIAN: YOGESH CANALES REFERRING PHYSICIAN: YOGESH CANALES Coding ----- --------- Procedures 48797: Ultrasound, uterus, real time with image documentation, [...] GA 33 w + 5 d Assigned OMNIQUE: 03/03/2025 General Evaluation ----- --------- Cardiac activity [...] EFW (oz) 14 oz EFW by: Hadlock (AOV-ZO-CY-FL) Extended Tibia 56.1 mm 32w 6d 45% Tj Play Leader 2.0 mm Head / Face / Neck [...] Heart / Thorax RVOT view. LVOT view. 3-eenqwz-pnwvtkf view. Aortic arch view. Bicaval view. Ductal [...] - 01/18/2025 THIS EXAM WAS PERFORMED AT [facility] NAME: BROOK CHOI : 2005 SEX: F Accession Number: [id number] ORDERING PHYSICIAN: YOGESH CANALES REFERRING PHYSICIAN: YOGESH CANALES Coding ----- --------- Procedures 12513: Ultrasound, uterus, real time with imagedocumentation, and [...] EFW (oz) 14 oz EFW by: Hadlock ([id number]-HR-ZD-FL) Extended Tibia 56.1 mm 32w 6d 45% Tj Play Leader 2.0 mm Head / Face / Neck [...] Heart / Thorax RVOT view. LVOT view. 6-lkiefq-iotngkx view. Aortic archview. Bicaval view. Ductal arch [...] on filedocumented in this encounter Care Teams Spa Assistant Manager Relationship Specialty Start Date End Date David Awan MD [address] [place] [address] PCP - General Family Medicine 07/18/24 documented as of this encounter
--- OUTSIDE RECORDS SUMMARY | 2025-02-01 11:47 | XMS_ITS | Encounter Summary ---
Author Organization [facility] Address [address] [place] [address] Care Team Providers Care Timber Inspector Name Role Phone David Awan MD Primary Care Provider [phone] Encounter Details Date Type Department Care Team (Late st Contact Info) Description 01/18/2025 Abstract [facility] OB [address] [facility] [place] [address] Zita Jade MA Social History Tobacco [...] EDT Office Visit [facility] BCP OB [address] [place] [address] Maryanne Whiteside PA [address] [facility] [address] [place], [place] [phone] documented as of this encounter Visit Diagnoses Not on filedocumented in this encounter Care Teams Timber Inspector Relationship Specialty Start Date End Date David Awan MD [address] [place] [address] PCP - General Family Medicine 07/18/24 documented as of this encounter
--- OUTSIDE RECORDS SUMMARY | 2025-02-01 11:47 | XMS_ITS | Clinical Summary ---
Author Organization [facility] tem Address [id number] [address] 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 LVOT view. 5-qfwapo-opyenei view. Aortic arch view. Bicaval view. Ductal [...] CHOI : 2005 SEX: F Accession Number: [id number] ORDERING PHYSICIAN: CB CANALES REFERRING PHYSICIAN: CB CANALES Coding ----- --------- Procedures 28711: Ultrasound, uterus, real time with imagedocumentation, and [...] EFW (oz) 14 oz EFW by: Hadlock (OIP-PQ-MT-FL) Extended Tibia 56.1 mm 32w 6d 45% Tj Engine Hostler 2.0 mm Head / Face / Neck [...] Heart / Thorax RVOT view. LVOT view. 3-rirewu-oelndbp view. Aortic archview. Bicaval view. Ductal arch [...] period is included. 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
--- OUTSIDE RECORDS SUMMARY | 2025-02-01 11:47 | XMS_ITS | Encounter Summary ---
Author Organization [facility] Address [address] [place] [address] Care Team Providers Care Assembly Technician Name Role Phone Hazel Grady MD Primary Care Provider [phone] Encounter Details Date Type Department Care Team (Late st Contact Info) Description 01/24/2025 Clinisync Result Encounter [facility] External Department Unsolicited Yogesh Canales DO [address] [facility] [address] [place], [place] [address] Social History Tobacco Use Types Packs/Day Years [...] EDT Office Visit [facility] [address] [facility] [place] [id number] Maryanne Whiteside PA [address] [place] [address] documented as of this encounter Procedures Procedure Name Priority Date/Time Associated Diagnosis Comments US OB BPP W NON-STRESS 01/24/2025 10:38 AM EDT documented in this encounter Results * US OB BPP W NON-STRESS (01/24/2025 10:38 AM EDT) Anatomical Region Laterality Modality Other 01/24/2025 10:3 8 AM EDT Narrative 01/24/2025 10:41 [place] [address] Ultrasound Report Signed Patient: JIMBO DOE MR#: [id number] : 2005 Acct:[id number] Age/Sex: 19 / F ADM Date: 01/24/25 Loc: [facility] 250-[address]: Yogesh Canales D.O. Ordering Physician: Yogesh Canales D.O. Date of Service: 01/24/25 Procedure(s): US OB BPP w non-stress Accession Number(s): [id number] cc: Yogesh Canales D.O.; HAZEL GRADY [place] [id number] Patient Name: JIMBO DOE MRN: [id number] date: 2005 Sex: F Assigned Patient Location: [facility] Current Patient Location: [facility] Accession/Order Number: [id number] Exam Date: 01/24/2025 10:33 Report Date: 01/24/2025 [...] Nascimento M.D. 01/24/2025 10:38 AM Dictation Location: [place] [address] Electronically authenticated by: [id number] Y Date: 01/24/2025 10:38 Dictated By: Aparna Nascimento M.D. Signed By: 01/24/25 1041 DD/ 1038 TD/TT: Public Speaker: Procedure Note Radiology, Radiologist, MD - 01/24/2025 [place] [address] Ultrasound Report Signed Patient: JIMBO DOE RMR#: [id number] : 2005Acct:[id number] Age/Sex: 19 / FADM Date: 01/24/25 Loc: [place] [address]- Attending Dr: Yogesh Canales D.O. Ordering Physician: Yogesh Canales D.O. Date of Service: 01/24/25 Procedure(s): US OB BPP w non-stress Accession Number(s): [id number] cc: Yogesh Canales D.O.; HAZEL GRADY [place] [address] Patient Name: JIMBO DOE MRN: [id number]:[id number] date: 2005 Sex: F Assigned Patient Location: [facility] Current Patient Location: [facility] Accession/Order Number: [id number] Exam Date: 01/24/2025 10:33 Report Date: 01/24/2025 [...] Nascimento M.D. 01/24/2025 10:38 AM Dictation Location: [place] [address] Electronically authenticated by: [id number] Y Date: 0:38 Dictated By: Aparna Nascimento M.D. Signed By:01/24/25 1041 DD/ 1038 TD/TT: Public Speaker: us Yogesh Ally DO [facility] Final Result documented in this encounter Visit Diagnoses Not on filedocumented in this encounter Care Teams Assembly Technician Relationship Specialty Start Date End Date Hazel Grady MD [address] [place] [address] PCP - General Family Medicine 07/18/24 documented as of this encounter
--- OUTSIDE RECORDS SUMMARY | 2025-02-01 11:47 | XMS_ITS | Encounter Summary ---
Author Organization [facility] Address [address] [place] [address] Care Team Providers Care Apple Picker Name Role Phone David Awan MD Primary Care Provider Encounter Details Date Type Department Care Team (Late st Contact Info) Description 01/25/2025 Bamboo flowsheet [facility] OB [address] [place] [address] Cb Canales DO [address] [facility] [address] [place], [facility] Social History Tobacco Use Types Packs/Day [...] 02/12/2025 1:50 PM EDT Office Visit [facility] OB [address] [place] [address] Maryanne Whiteside PA [address] [facility] [address] [place], [place] [phone] documented as of this encounter Visit Diagnoses Not on filedocumented in this encounter Care Teams Apple Picker Relationship Specialty Start Date End Date David Awan MD [address] [place] [address] PCP - General Family Medicine 07/18/24 documented as of this encounter
--- OUTSIDE RECORDS SUMMARY | 2025-02-01 11:47 | XMS_ITS | Clinical Summary ---
Author Organization [facility] Address [address] [place] [address] Care Team Providers Care Game Attendant Name Role Phone Hazel Grady MD Primary Care Provider [phone] Allergies Active Allergy Reactions Criticality Noted Date Comments Amoxicillin Rash Low 2005 Medications sertraline (Zoloft) 50 MG tablet Take 50 mg by mouth at bedtime 04/05/2024 Active promethazine (Phenergan) 12.5 MG tabletIndicatio ns: headache, antepartum ([facility]) Take 1 tablet (12.5 mg) by mouth [...] Encounters Date Type Department Care Team Description 02/01/2025 8:50 AM EDT Routine [facility] [address] [place] [address] [place] [address] Maryanne Whiteside PA 35 weeks gestation of ([facility]); Third trimester ([facility]); Pruritus; Oligohydramnios in third trimester, fetus 1 of multiple gestation ([facility]); SGA (small for gestational age) ([facility]); headache in third trimester ([facility]) 02/01/2025 Bamboo flowsheet [facility] OB [address] [place] [address] Maryanne Whiteside PA 01/31/2025 Clinisync Result Encounter [facility] External Department Unsolicited Yogesh Canales, DO 01/25/2025 8:40 AM EDT Routine [facility] OB [address] [place] [address] [place] [address] Yogesh Canales, DO Third trimester ([facility]); 34 weeks gestation of ([facility]) 01/25/2025 Clinisync Result Encounter [facility] External Department Unsolicited Yogesh Canales, DO 01/25/2025 Bamboo flowsheet [facility] OB [address] [place] [address] [place] [address] Yogesh Canales, DO 01/24/2025 Clinisync Result Encounter [facility] External Department Unsolicited Yogesh Canales, DO 01/18/2025 Abstract [facility] OB [address] [place] [address] [place] [address] Zita Jade MA 01/18/2025 External Result Encounter [facility] OB [address] [place] [address] [place] [address] Yogesh Canales, DO 01/17/2025 Clinisync Result Encounter [facility] External Department Unsolicited Yogesh Canales, DO 01/11/2025 1:30 PM EDT Routine [facility] OB [address] [place] [address] [place] [address] Maryanne Whiteside PA Third trimester ([facility]); 32 weeks gestation of ([facility]); Pruritus 01/11/2025 Clinisync Result Encounter [facility] External Department Unsolicited Maryanne Whiteside PA 01/11/2025 Bamboo flowsheet [facility] OB [address] [place] [address] Maryanne Whiteside PA 01/10/2025 Clinisync Result Encounter [facility] External Department Unsolicited Yogesh Canales, DO 01/06/2025 Clinisync Result Encounter [facility] External Department Unsolicited AllyYogesh noyola, DO 01/03/2025 Clinisync Result Encounter [facility]OMS External Department Unsolicited Cony Canalesy, DO 12/28/2024 9:50 AM EDT Routine [facility] [address] [place] [address] Yogesh Canales, DO 30 weeks gestation of ([facility]); Third trimester ([facility]); Oligohydramnios in third trimester, fetus 1 of multiple gestation ([facility]) 12/28/2024 9:00 AM EDT Ancillary Procedure [facility] [address] [place] [address] size inconsistent with dates ([facility]) 12/16/2024 Clinisync Result Encounter [facility] External Department Unsolicited Yogesh Canales, DO 12/15/2024 Clinisync Result Encounter [facility]S External Department Unsolicited Yogesh Canales, DO 12/06/2024 1:20 PM EDT Routine [facility] [address] [place] [address] Lynette Gunter, DEE DEE size inconsistent with dates ([facility]) (Primary Dx); 27 weeks gestation of ([facility]); Second trimester ([facility]) 12/06/2024 Travel 12/06/2024 Bamboo flowsheet [facility] [address] [place] [address] Lynette Gunter NP 11/30/2024 Clinisync Result Encounter [facility]S External Department Unsolicited Yogesh Canales, DO 11/15/2024 10:50 AM EDT Routine [facility] [place] [address] [place] [address] Yogesh Canales, DO 24 weeks gestation of ([facility]); Second trimester ([facility]); Diabetes mellitus screening 11/15/2024 10:00 AM EDT Ancillary Procedure [facility] OB [address] [facility] [place] [address] Encounter for follow-up ultrasound of anatomy ([facility]) 11/01/2024 Telephone [facility] OB [address] [place] [address] Yogesh Canales DO from Last 3 Months [...] 02/12/2025 1:50 PM EDT Office Visit [facility] OB [address] [place] [address] [place] [address] Maryanne Whiteside PA [address] [facility] [address] [place], [place] [phone] Procedures Procedure Name Priority Date/Time Associated Diagnosis Comments POCT URINALYSIS DIPSTICK Routine 02/01/2025 9:19 AM EDT 35 weeks gestation of ([facility]) Third trimester ([facility]) Pruritus Oligohydramnios in third trimester, fetus 1 of multiple gestation ([facility]) MHPT FIBRINOGEN Routine 01/31/2025 11:36 AM EDT [facility] APTT Routine 01/31/2025 11:36 AM EDT [facility] PROTHROMBIN TIME INR W/O COUM Routine 01/31/2025 11:36 AM EDT CCF ALT Routine 01/31/2025 11:36 AM EDT [facility] AST Routine 01/31/2025 11:36 AM EDT ALL URIC ACID Routine 01/31/2025 11:36 AM EDT TBH CREATININE Routine 01/31/2025 11:36 AM EDT ALL BUN Routine 01/31/2025 11:36 AM EDT ALL CBC WITH AUTO DIFF Routine 11:36 AM EDT TBH URINE T PROTEIN CREAT RATIO Routine 01/31/2025 11:30 AM EDT US OB BPP W NON-STRESS 01/31/2025 11:08 AM EDT US OB BPP W NON-STRESS 01/25/2025 3:01 PM EDT POCT URINALYSIS DIPSTICK Routine 01/25/2025 9:22 AM EDT Third trimester ([facility]) US OB BPP W NON-STRESS 01/24/2025 10:38 [...] 10:23 AM EDT 30 weeks gestation of ([facility]) US OB FOLLOW UP TRANSABDOMINAL APPROACH Routine 12/28/2024 9:43 AM EDT size inconsistent with dates ([facility]) TBH URINE T PROTEIN CREAT RATIO Routine [...] 12/15/2024 11:00 PM EDT TBH UA (CLEAN/CATCH) HOME CARE MUSIC THERAPIST/MICRO IF IND. Routine 12/15/2024 11:00 PM EDT POCT URINALYSIS DIPSTICK Routine 12/06/2024 1:28 PM EDT 27 weeks gestation of ([facility]) Second trimester ([facility]) GLUCOSE 1 HOUR Routine 11/30/2024 2:12 PM EDT ALL CBC WITH AUTO DIFF Routine 2:12 PM EDT POCT URINALYSIS DIPSTICK Routine 11/15/2024 10:42 AM EDT 24 weeks gestation of ([facility]) Second trimester ([facility]) US OB LIMITED 1+ FETUSES Routine 11/15/2024 10:24 AM EDT Encounter for follow-up ultrasound of anatomy ([facility]) from Last 3 Months Results * (ABNORMAL) POCT urinalysis dipstick manually resulted (02/01/2025 9:19 AM EDT) Only the most recent of5 resultswithin the time period is included. Color, [...] TEST ENTER/EDIT OR DERABLES Final Result * (ABNORMAL) TBH CREATININE (01/31/2025 11:36 AM EDT) CREATININE 0.46(L) 0.55 - 1.02 mg/dL TBH TBH EGFR-AF SAO TOMEAN >60 >=60 mL/min/1.7 3m 2 TBH TBH EGFR-NON AF SAO TOMEAN >60 >=60 mL/min/1.7 3m 2 TBH 01/31/2025 11:3 6 AM EDT 01/31/2025 11:41 AM EDT Narrative CLINISYNC - 01/31/2025 12:02 PM EDT Yogesh Ally DO CLINIS[facility]NC Final Result [facility] * [facility] PROTHROMBIN TIME INR W/O COUM (01/31/2025 11:36 AM EDT) Pathologist [facility] PROTHROMBIN TIME 9.8 9.0 - 11.6 sec TBH TBH INR <0.93 TBH Comment: DESIRED INR: 2.0-3.0 CONDITIONS NOT LISTED BELOW 2.5-3.5 FOR PROSTHETIC HEART VALVE REPLACEMENT 2.5-3.5 RECURRENT THROMBOSIS 01/31/2025 11:3 6 AM EDT 01/31/2025 11:41 AM EDT Narrative CLINISYNC - 01/31/2025 12:22 PM EDT Yogesh Ally DO CLINISYNC Final Result [facility] * (ABNORMAL) MHPT FIBRINOGEN (01/31/2025 11:36 AM EDT) FIBRINOGEN 469(H) 200 - 400 mg/dL TBH 01/31/2025 11:3 6 AM EDT 01/31/2025 11:41 AM EDT Narrative CLINISYNC - 01/31/2025 12:22 PM EDT Yogesh Ally DO CLINISYNC Final Result [facility] TB * (ABNORMAL) CCF AST (01/31/2025 11:36 AM EDT) ASPARTATE AMINO TRANSFERASE 11(L) 15 - 37 U/L TBH 01/31/2025 11:3 6 AM EDT 01/31/2025 11:41 AM EDT Narrative CLINISYNC - 01/31/2025 12:02 PM EDT Yogesh Ally DO CLINISYNC Final Result Performing Organization Address [facility]/ZIP Co de Phone Number CLINISYNC TBH * CCF APTT (01/31/2025 11:36 AM EDT) PARTIAL THROMBOPLASTIN TIME 26.7 22.3 - 36.2 sec TBH 01/31/2025 11:3 6 AM EDT 01/31/2025 11:41 AM EDT Narrative CLINISYNC - 01/31/2025 12:22 PM EDT [facility] Ally DO CLINISYNC Final Result Performing Organization Address City/[facility]/ZIP Co de Phone Number CLINISYNC TBH * (ABNORMAL) CCF ALT (01/31/2025 11:36 AM EDT) ALANINE AMINOTRANSFERASE 13(L) 14 - 59 U/L TBH 01/31/2025 11:3 6 AM EDT 01/31/2025 11:41 AM EDT Narrative CLINISYNC - 01/31/2025 12:02 PM EDT Yogesh Ally DO CLINISYNC Final Result [facility] * ALL URIC ACID (01/31/2025 11:36 AM EDT) Only the most recent of2 resultswithin the time period is included. Pathologist [facility] URIC ACID 3.7 2.6 - 6.0 mg/dL TB 01/31/2025 11:3 6 AM EDT 01/31/2025 11:41 AM EDT Narrative CLINISYNC - 01/31/2025 12:02 PM EDT Yogesh Ally DO CLINISYNC Final Result Performing Organization Address City/[facility]/ZIP Co de [facility] Number [facility] * (ABNORMAL) ALL CBC WITH AUTO DIFF (01/31/2025 11:36 AM EDT) Only the most recent of5 resultswithin the time period is included. Pathologist [facility] TB WBC 10.4 4.0 - 11.0 10 3/uL TBH TBH RBC 3.67(L) 4.20 - 5.40 10 6/uL TBH TBH HGB 10.2(L) 12.0 - 16.0 g/dL TB TB HCT 29.9(L) 36.0 - 48.0 % TBH TBH MCV 81.5 81.0 - 99.0 fL TBH TB MCH 27.8 26.7 - 34.0 pg TBH TBH MCHC 34.1 29.9 - 35.2 g/dL TB TBH RDW 13.3 11.0 - 15.0 % [...] CLINISYNC - 01/31/2025 11:55 AM EDT Yogesh Ally DO CLINISYNC Final Result [facility] TB * (ABNORMAL) ALL BUN (01/31/2025 11:36 AM EDT) BLOOD UREA NITROGEN 5.0(L) 7.0 - 18.0 mg/dL TB 01/31/2025 11:3 6 AM EDT 01/31/2025 11:41 AM EDT Narrative CLINISYNC - 01/31/2025 12:02 PM EDT [employer] Ally DO CLINISYNC Final Result [facility]NC TB * TBH URINE T PROTEIN CREAT RATIO (01/31/2025 11:30 AM EDT) Only the most recent of2 resultswithin the time period is included. TOTAL PROTEIN URINE RANDOM 8.3 <=11.9 mg/dL TBH CREATININE URINE RANDOM 42.26 20.00 - 300.00 mg/dL TBH PROTEIN CREATININE RATIO URINE 0.20 TBH 01/31/2025 11:3 0 AM EDT 01/31/2025 11:41 AM EDT Narrative CLINISYNC - 01/31/2025 1:06 PM EDT us Yogesh Canales DO CLINISYODALIS Final Result [facility] * US OB BPP W NON-STRESS (01/31/2025 11:08 AM EDT) Only the most recent of6 resultswithin the time period is included. Anatomical Region Laterality Modality Other 01/31/2025 11:0 8 AM EDT Narrative 01/31/2025 11:[place] [address] Ultrasound Report Signed Patient: FRANCES DOE MR#: [id number] : 2005 Acct:[id number] Age/Sex: 19 / F ADM Date: 01/31/25 Loc: [facility] 254-[address]: Yogesh Canales D.O. Ordering Physician: Yogesh Canales D.O. Date of Service: 01/31/25 Procedure(s): US OB BPP w non-stress Accession Number(s): [id number] cc: Yogesh Canales D.O.; HAZEL GRADY The [place] [id number] Patient Name: FRANCES DOE MRN: [id number] date: 2005 Sex: F Assigned Patient Location: [facility] Current Patient Location: [facility] Accession/Order Number: [id number] Exam Date: 01/31/2025 11:05 Report Date: 01/31/2025 11:08 At the request of: YOGESH CANALES DO Procedure: US OB BPP w non-stress BIOPHYSICAL PROFILE: CLINICAL INFORMATION: Oligohydramnios COMPARISON: 01/25/2025 There is a single live intrauterine gestation in cephalic presentation. The reported gestational age is 35 weeks 4 days. The heart rate hunxhqrm286 beats per minute. FINDINGS: TONE: 1 or [...] Nascimento M.D. 01/31/2025 11:08 AM Dictation Location: [place] [address] Electronically authenticated by: [id number] Y Date: 01/31/2025 11:08 Dictated By: Aparna Nascimento M.D. Signed By: 01/31/25 1111 DD/ 1108 TD/TT: Pharmaceutical Sales Representative: Procedure Note Radiology, Radiologist, MD - 01/31/2025 [place] [address] Ultrasound Report Signed Patient: FRANCES DOE RMR#: [id number] : 2005Acct:[id number] Age/Sex: 19 / FADM Date: 01/31/25 Loc: [facility] 254-[address]: Yogesh Canales D.O. Ordering Physician: Yogesh Canales D.O. Date of Service: 01/31/25 Procedure(s): US OB BPP w non-stress Accession Number(s): [id number] cc: Yogesh Canales D.O.; HAZEL GRADY The [address] [address] Patient Name: FRANCES DOE MRN: [id number] date: 2005 Sex: F Assigned Patient Location: [facility] Current Patient Location: [facility] Accession/Order Number: [id number] Exam Date: 01/31/2025 11:05 Report Date: 01/31/2025 11:08 At the request of: YOGESH CANALES DO Procedure: US OB BPP w non-stress BIOPHYSICAL PROFILE: CLINICAL INFORMATION: Oligohydramnios COMPARISON: 01/25/2025 There is a single live intrauterine gestation in cephalic presentation.The reported gestational age is 35 weeks 4 days. The heart denhqmpascxy533 beats per minute. FINDINGS: TONE: 1 or [...] Nascimento M.D. 01/31/2025 11:08 AM Dictation Location: [place] [address] Electronically authenticated by: [id number] Y Date: 1:08 Dictated By: Aparna Nascimento M.D. Signed By:01/31/25 1111 DD/ 1108 TD/TT: Pharmaceutical Sales Representative: us Yogesh Canales DO CLINISYNC IMAGING Final Result * US OB 14+ weeks anatomy scan (01/18/2025 10:30 AM EDT) Anatomical Region Laterality Modality Body Ultrasound 01/18/2025 10:3 0 AM EDT Narrative 01/18/2025 10:30 AM EDT THIS EXAM WAS PERFORMED AT [facility] NAME: BROOK CHOI : 2005 SEX: F Accession Number: [id number] ORDERING PHYSICIAN: YOGESH CANALES REFERRING PHYSICIAN: YOGESH CANALES Coding ----- --------- Procedures 93176: Ultrasound, uterus, real time with image documentation, [...] EFW (oz) 14 oz EFW by: Hadlock ([id number]) Extended Tibia 56.1 mm 32w 6d 45% Tj Construction Director 2.0 mm Head / Face / Neck [...] Heart / Thorax RVOT view. LVOT view. 6-evzthi-yjsivbz view. Aortic arch view. Bicaval view. Ductal [...] - 01/18/2025 THIS EXAM WAS PERFORMED AT [facility] NAME: BROOK CHOI : 2005 SEX: F Accession Number: [id number] ORDERING PHYSICIAN: YOGESH CANALES REFERRING PHYSICIAN: YOGESH CANALES Coding ----- --------- Procedures [id number]: Ultrasound, uterus, real time with imagedocumentation, and [...] EFW (oz) 14 oz EFW by: Hadlock ([id number]) Extended Tibia 56.1 mm 32w 6d 45% Tj Construction Director 2.0 mm Head / Face / Neck [...] Heart / Thorax RVOT view. LVOT view. 7-krecro-yxbuiiq view. Aortic archview. Bicaval view. Ductal arch [...] up with thepatient as necessary. us Yogesh Herrerao DO IMG OB US PROCEDURES Final Resul t * (ABNORMAL) [facility] LIVER PANEL (01/11/2025 2:14 PM EDT) [...] - 01/11/2025 3:18 PM EDT us Maryanne FOWLER CLINSERA Final Result [facility] TBH * CCF BILE ACIDS FRACT BLD (01/11/2025 2:14 PM EDT) BILE ACIDS 1.6 0.0 - 10.0 umol/L TBH Comment: Performed at: - [facility] [id number] [facility] [employer] Driver: Mac Chawla MD, Phone: [phone] 01/11/2025 2:14 PM EDT 01/11/2025 2:18 PM EDT Narrative CLINISYNC - 01/12/2025 3:09 PM EDT us Maryanne HER Final Result Performing Organization Address City/[facility] Co de Phone Number CLINISYNC [facility] * ALL THYROID STIM HORMONE (01/11/2025 2:14 PM EDT) Pathologist [facility] THYROID STIMULATING HORMONE 0.457 0.358 - 3.740 uIU/mL TB 01/11/2025 2:14 PM EDT 01/11/2025 2:18 PM EDT Narrative CLINISYNC - 01/11/2025 3:18 PM EDT us Maryanne CALDERAISYODALIS Final Result Performing Organization Address [facility] Co ia Phone Number CLINISYNC [facility] * ALL HEPATITIS C AB (01/11/2025 2:14 PM EDT) [facility] HCV ANTIBODY Non Reactive Non Reactive [facility] Comment: HCV antibody alone does not differentiate between previously resolved infection and active infection. Equivocal and Reactive HCV antibody results should be followed up with an HCV RNA test to support the diagnosis of active HCV infection. Performed at: [address] [id number] [facility] Driver: Porter Kamara PhD, Phone: [phone] 01/11/2025 2:14 PM EDT 01/11/2025 2:18 PM EDT Narrative CLINISYNC - 01/12/2025 5:07 AM EDT us Maryanne HER Final Result Performing Organization Address City/[facility] Co de Phone Number CLINISYNC [facility] * AMNISURE (01/06/2025 11:15 AM EDT) [facility] AMNISURE NEGATIVE NEGATIVE TB 01/06/2025 11:1 5 AM EDT 01/06/2025 11:29 AM EDT Narrative [facility] - 01/06/2025 11:41 AM EDT us Yogesh Canales DO LAB BLOOD ORDERABLES Final Resul t [facility] * US OB follow up transabdominal approach [...] II, MD, PHD at 29-Dec-2024 12:17:39 PM [facility] Procedure Note Dorothy Duckworth MD - [...] signed by DOROTHY DUCKWORTH II, MD, PHD [id number] 12:17:39 PM [facility] us Lynette Gunter DIRECTOR [employer] SCI[employer] IMG OB US PROCEDURES Final Re sult * (ABNORMAL) CCF LIPASE (12/16/2024 12:41 PM EDT) Only the most recent of2 resultswithin the time period is included. LIPASE 15.0(L) 16.0 - 77.0 U/L TBH 12/16/2024 12:4 1 PM EDT 12/16/2024 12:44 PM EDT Narrative CLINISYNC - 12/16/2024 1:22 PM EDT us Yogesh Canales DO CLINISYNC Final Result [facility]NC TBH * (ABNORMAL) [facility]CF CMP (CMP) (FOR REMOTE [facility] USE) (12/16/2024 12:41 PM EDT) Only the [...] 0.55 - 1.02 mg/dL TBH TBH EGFR-AF SAO TOMEAN >60 >=60 mL/min/1. 73m 2 TBH TBH EGFR-NON AF SAO TOMEAN >60 >=60 mL/min/1. 73m 2 TBH BUN [...] DO CLINISYNC Final Result [facility] * ALL AMYLASE (12/16/2024 12:41 PM EDT) Only the most recent of2 resultswithin the time period is included. AMYLASE 36 25 - 115 U/L TBH 12/16/2024 12:4 1 PM EDT 12/16/2024 12:44 PM EDT Narrative CLINISYNC - 12/16/2024 1:22 PM EDT Yogesh Ally DO CLINISYNC Final Result Performing Organization Address [facility] de Phone Number CLINISYNC TBH * (ABNORMAL) TBH URINE MICROSCOPIC ONLY (12/15/2024 11:00 PM EDT) TB WBC 20-50(A) NONE SEEN #/HPF TBH TBH [...] Narrative CLINISYNC - 12/15/2024 11:39 PM EDT [employer] DO CLINISYNC Final Result Performing Organization Address [facility] de Phone Number CLINISYNC TB * (ABNORMAL) TBH UA (CLEAN/CATCH) HOME CARE MUSIC THERAPIST/MICRO IF IND. (12/15/2024 11:00 PM EDT) COLOR [...] DO CLINISYNC Final Result Performing Organization Address City/[facility]/ZIP Co de Phone Number [facility] * GLUCOSE 1 HOUR (11/30/2024 2:12 PM EDT) GLUCOSE 1 HOUR 96 <130 mg/dL TBH 11/30/2024 2:12 PM EDT 11/30/2024 2:14 PM EDT Narrative CLINISYNC - 11/30/2024 3:11 PM EDT us Yogesh Ally DO LAB BLOOD ORDERABLES Final Resul t Performing Organization Address [facility] Co de Phone Number [facility] * US OB limited 1+ fetuses [...] II, MD, PHD at 17-Nov-2024 06:24:10 AM [facility] Procedure Note Dorothy Duckworth MD - [...] tracts. Interpreted by: Electronically signed by DOROTHY DUKCWORTH II, MD, PHD [id number] 06:24:10 AM [facility] us Yogesh Canales DO IMG OB US PROCEDURES Final Resul t from Last [address] [place] [address] Care Teams Game Attendant Relationship Specialty Start Date End Date Hazel Grady MD [address] [place] [id number] PCP - General Family Medicine 07/18/24
--- OUTSIDE RECORDS SUMMARY | 2025-02-01 11:47 | XMS_ITS | Encounter Summary ---
Author Organization [facility] tem Address [id number] [address] [place] [address] Care Team Providers Care Tool Filer Name Role Phone Unavailable Primary Care Provider Unavailabl e Encounter Details Date Type Department Care Team (Late st Contact Info) Description 01/04/2025 Orders Only Maternal- Medicine at [facility] [address] [place] [phone] Ref Prov, [place] [address] Social History Tobacco Use Types Packs/Day Years [...] 10:58 AM EDT) Anatomical Region Laterality Modality OB-MAITRE D Ultrasound us Not In System Ref Prov IMG US ORDERABLES Final R esult * Ultrasound limited 1 or more fetus (01/04/2025 10:56 AM EDT) Anatomical Region Laterality Modality OB-MAITRE D Ultrasound us Not In System Ref Prov IMG US ORDERABLES Final R esult * Ultrasound limited 1 or more fetus (01/04/2025 10:55 AM EDT) Anatomical Region Laterality Modality OB-MAITRE D Ultrasound us Not In System Ref Prov IMG US ORDERABLES Final R esult * Ultrasound limited 1 or more fetus (01/04/2025 10:54 AM EDT) Anatomical Region Laterality Modality OB-MAITRE D Ultrasound us Not In System Ref Prov IMG US ORDERABLES Final R esult * Ultrasound limited 1 or more fetus (01/04/2025 10:51 AM EDT) Anatomical Region Laterality Modality OB-MAITRE D Ultrasound us Not In System Ref Prov IMG US ORDERABLES Final R esult documented in this encounter Visit Diagnoses Not on filedocumented in this encounter
--- OUTSIDE RECORDS SUMMARY | 2025-02-01 11:47 | XMS_ITS | Encounter Summary ---
Author Organization [facility] Address [address] [place] [address] Care Team Providers Care Barytes Grinder Name Role Phone David Awan MD Primary Care Provider [phone] Encounter Details Date Type Department Care Team (Late st Contact Info) Description 08/08/2024 Abstract [facility] OB [address] [place] [id number] Cb Canales DO [address] [place] [address] [address] [place], [place] [address] Social History Tobacco Use Types Packs/Day Years [...] Department Care Team (Late Contact Info) Description 02/12/2025 1:50 PM EDT Office Visit [facility] OB [address] [place] [address] Maryanne Whiteside PA [address] [place], [place] [id number] documented as of this encounter Visit Diagnoses Not on filedocumented in this encounter Care Teams Barytes Grinder Relationship Specialty Start Date End Date David Awan MD [address] [place] [address] PCP - General Family Medicine 07/18/24 documented as of this encounter
--- OUTSIDE RECORDS SUMMARY | 2025-02-01 11:47 | XMS_ITS | Encounter Summary ---
Author Organization [facility] Address [address] [place] [address] Care Team Providers Care Glue Bone Drier Name Role Phone Hazel Grady MD Primary Care Provider [phone] Encounter Details Date Type Department Care Team (Late st Contact Info) Description 07/19/2024 Clinisync Result Encounter [facility] External Department Unsolicited Yogesh Canales DO [address] [facility] [address] [place], [place] [address] Social History Tobacco Use Types Packs/Day Years [...] EDT Office Visit [facility] OB [address] [facility] [place] [phone] Maryanne Whiteside PA [address] [facility] [place] [address] documented as of this encounter Procedures Procedure Name Priority Date/Time Associated Diagnosis Comments US OB TRANSVAGINAL 07/19/2024 4: 28 AM EST documented in this encounter Results * US OB TRANSVAGINAL (07/19/2024 4:28 AM EST) Anatomical Region Laterality Modality Other 07/19/2024 4:28 AM EST Narrative 07/19/2024 4:31 [place] [address] Ultrasound Report Signed Patient: JIMBO DOE MR#: [id number] : 2005 Acct:[id number] Age/Sex: 18 / F ADM Date: 07/18/24 Loc: [facility] Attending Dr: Yogesh Canales D.O. Ordering Physician: Yogesh Canales D.O. Date of Service: 07/18/24 Procedure(s): US OB transvaginal Accession Number(s): [id number] cc: Yogesh Canales D.O.; [place] [address] Patient Name: JIMBO DOE MRN: [id number] date: 2005 Sex: F Assigned Patient Location: [facility] Current Patient Location: Accession/Order Number: [id number] Exam Date: 07/18/2024 10:06 Report Date: 07/19/2024 [...] Signed By: 07/19/24 0431 DD/ 0428 TD/TT: Track Liner Operator: Procedure Note Radiology, Radiologist, - 07/19/2024 [place] [address] Ultrasound Report Signed Patient: JIMBO DOE RMR#: [id number] : 2005Acct:[id number] Age/Sex: 18 / FADM Date: 07/18/24 Loc: [facility] Attending Dr: Yogesh Canales D.O. Ordering Physician: Yogesh Canales D.O. Date of Service: 07/18/24 Procedure(s): US OB transvaginal Accession Number(s): [id number] cc: Yogesh Canales D.O.; [place]EL GRADY [place] [address] Patient Name: JIMBO DOE MRN: [id number] date: 2005 Sex: F Assigned Patient Location: [facility] Current Patient Location: Accession/Order Number: [id number] Exam Date: 07/18/2024 10:06 Report Date: 07/19/2024 [...] M.D. Signed By:07/19/24 0431 DD/ 0428 TD/TT: Track Liner Operator: us Yogesh Canales DO [facility] Final Result documented in this encounter Visit Diagnoses Not on filedocumented in this encounter Care Teams Glue Bone Drier Relationship Specialty Start Date End Date Hazel Grady MD [address] [place] [address] PCP - General Family Medicine 07/18/24 documented as of this encounter
--- OUTSIDE RECORDS SUMMARY | 2025-02-01 11:47 | XMS_ITS | Encounter Summary ---
Author Organization [facility] Address [address] [place] [address] Care Team Providers Care Ferry Engineer Name Role Phone David Awan MD Primary Care Provider Encounter Details Date Type Department Care Team (Late st Contact Info) Description 02/01/2025 Bamboo flowsheet [facility] OB [address] [facility] [place] [phone] Maryanne Whiteside PA [address] [place] [address] Dr [place], [facility] Social History Tobacco Use Types Packs/Day [...] EDT Office Visit [facility] B[facility] OB [address] [facility] [place] [place] [phone] Maryanne Whiteside PA [address] [place] [address] [place], [place] [phone] documented as of this encounter Visit Diagnoses Not on filedocumented in this encounter Care Teams Ferry Engineer Relationship Specialty Start Date End Date David Awan MD [address] [place] [address] PCP - General Family Medicine 07/18/24 documented as of this encounter
[2025-02-01 14:01] LABS: Total Protein Urine Random 12.1 mg/dL (<=11.9)
[2025-02-01 14:02] LABS: Total Protein 24 Hour Urine 157.3 mg/24hr (<=149.1); Total Volume 24 Hour Urine 1300 mL/24hr
== END 2025-02-01 11:44 | disposition home or self-care (01) ==
LOC: LAB 11:43
PROVIDERS: PCP Family Medicine; Visit Provider Obstetrics & Gynecology
DX: I10 Essential (primary) hypertension (principal)
CPT/HCPCS: 84156

== ENCOUNTER 2025-02-01 17:57 | Outpatient (REF) | payer OTHER, SELFPAY ==
--- OUTSIDE RECORDS SUMMARY | 2016-05-22 10:00 | XMS_ITS | Continuity of Care Document ---
Author Organization [employer] [facility] Address [address] [facility] [place] [address] Phone Care Team Providers Care Senior Category Manager Name Role Phone Floyd WANG, Selvin Unavailable [...] Diagnoses Date Provider Providers Copied on Encounter [facility] [facility], [address] [facility] [address], [place], [place], [address], [place] tel:[phone] [facility] vaccine adm. (chief complaint) No Information 6 Floyd Montalvo. [address] [address], [place], [place], [address], [place]. tel:[phone] Referring Provider: Selvin Bell, [address] [address], [place], [address] . tel:[phone] [facility], [address] [place] [address] [address], [place], [place], [address], [place] tel:[phone] [facility] No Information 6 No Information [facility], [address] [place] [address] [address], [place], [place], [address], [place] tel:[phone] [facility] No Information 5 Floyd Montalvo. [address] [address], [place], [place], [address], [place]. tel:[phone] PREV VISIT, NEW, AGE 5-11 [facility], [address] [place] [address] [address], [place], [place], [address], [place] tel:[phone] [facility] Well child (chief complaint) Encntr for routine child health exam w/o abnormal findings 5 Ahmet Snyder. [address], [address], [place]. tel:[phone] Referring Provider: Lillian Leo MD, [address], [address]. tel:[phone] Family History Family Member Type Diagnosis Age [...] green party ID Authoriza tion(s) Medicaid [place] [id number] Medicaid [place] [id number] Medicaid [place] [id number] [facility] [id number] Social History Type Description Quantity Date [...]
--- OUTSIDE RECORDS SUMMARY | 2025-01-25 08:40 | XMS_ITS | Encounter Summary ---
Author Organization [facility] Address [address] [facility] [place] [address] Care Team Providers Care Commodity Merchant Name Role Phone David Awan MD Primary Care Provider [phone] Reason for Visit * Reason Comments Routine Visit Encounter Details Date Type Department Care Team (Late st Contact Info) Description 01/25/2025 8:40 AM EDT Routine [facility] BCP OB [address] [place] [phone] Cb Canales, DO [address] [facility] [place] [address] Third trimester ([facility]); 34 weeks gestation of ([facility]) Social History Tobacco Use Types Packs/Day Years [...] ASSESSMENT & PLAN ICD-10-CM 1. Third trimester ([facility]) Z34.93 POCT urinalysis dipstick manually resulted 2. 34 weeks gestation of ([facility]) Z3A.34 Return OB: Patient presents today for [...] by JANETH Ji on behalf of: Cb Canaels DO documented in this encounter Plan of Treatment Upcoming Encounters Date Type Department Care Team (Late st Contact Info) Description 02/04/2025 Abstract [facility] OB [address] [facility] [address] Cb Canales DO [address] [place] [address] 02/12/2025 1:50 PM EDT Office Visit [facility] OB [address] [facility] [facility] [address] Maryanne Whiteside PA [address] [facility] [place] [address] documented as of this encounter Procedures Procedure Name Priority Date/Time Associated Diagnosis Comments POCT URINALYSIS DIPSTICK Routine 01/25/2025 9:22 AM EDT Third trimester ([facility]) documented in this encounter Results * POCT [...] this encounter Visit Diagnoses Diagnosis Third trimester ([facility]) state, incidental 34 weeks gestation of ([facility]) documented in this encounter Care Teams Commodity Merchant Relationship Specialty Start Date End Date David Awan MD [address] [place] [address] PCP - General Family Medicine 07/18/24 documented as of this encounter
--- OUTSIDE RECORDS SUMMARY | 2025-02-01 08:50 | XMS_ITS | Encounter Summary ---
Author Organization [facility] Address [address] [place] [address] Care Team Providers Care Content Strategist Name Role Phone David Awan MD Primary Care Provider [phone] Reason for Visit * Reason Comments Routine Visit Encounter Details Date Type Department Care Team (Late st Contact Info) Description 02/01/2025 8:50 AM EDT Routine [facility] [address] [place] [address] Maryanne Whiteside PA [address] [place], [place] [address] 35 weeks gestation of ([facility] Third trimester ([facility]); Pruritus; Oligohydramnios in third trimester, fetus 1 of multiple gestation ([facility]); SGA (small for gestational age) ([facility]); headache in third trimester ([facility]) Social History Tobacco Use Types Packs/Day Years [...] Sign Reading Time Taken Comments Blood Pressure 110/64 02/01/2025 9:05 AM EDT Pulse - - Temperature - - Respiratory Rate - - Oxygen Saturation - - Inhaled Oxygen Concentration - - Weight 147 kg (323 lb 6.4 oz) 02/01/2025 9:05 AM EDT Height - - Body Mass Index - - documented in this encounter Progress Notes * Madeline Toribio, ASSEMBLER PRODUCT - 02/01/2025 8:50 AM EDT Reason for Appointment: Patient ID: [...] nursing note reviewed. Exam conducted with a patents examiner present. Vitals: There is no height or weight on file to calculate BMI. BP: 110/64 Patient's last menstrual period was 05/09/2024. ASSESSMENT & PLAN Patient is doing well but has complaints of being tired and having maternal discomfort due to . Patient verbalized frequent movement and was instructed to perform kick counts three times per day. labor precautions were given, LARC consent was signed/declined, and GBS was obtained. Orders Placed This Encounter Procedures CULTURE, GROUP B STREP WITH SUSCEPTIBLITY POCT urinalysis dipstick manually resulted Follow Up: Patient is to return to office in 1 week for routine OB appointment Documented by Madeline Toribio LPN on behalf of: JANETH Ji documented in this encounter Plan of Treatment Upcoming Encounters Date Type Department Care Team (Late st Contact Info) Description 02/04/2025 Abstract [facility] [address] [place] [phone] Cb Canales DO [address] [place] [address] 02/12/2025 1:50 PM EDT Office Visit [facility] OB [address] [place] [phone] Maryanne Whiteside PA [address] [place], [place] [phone] Scheduled Orders Name Type Priority Associated Diagnoses Orde r Schedule CULTURE, GROUP B STREP WITH SUSCEPTIBLITY Lab Routine Third trimester ([facility]) Expected: 02/01/2025, Expires: 02/01/2026 documented as of this encounter Procedures Procedure Name Priority Date/Time Associated Diagnosis Comments POCT URINALYSIS DIPSTICK Routine 02/01/2025 9:19 AM EDT 35 weeks gestation of ([facility]) Third trimester ([facility]) Pruritus Oligohydramnios in third trimester, fetus 1 of multiple gestation ([facility]) documented in this encounter Results * (ABNORMAL) POCT urinalysis dipstick manually resulted (02/01/2025 9:19 AM EDT) Color, UA Yellow Clarity, UA Clear Glucose, UA Negative Negative - 2000(110) ++++ mg/dL Bilirubin, UA Negative Negative - 4(70) +++ mg/dL Ketones, UA Negative Negative - 160(16) ++++ mg/dL Spec Grav, UA 1.020 1 - 1.03 Blood, UA Negative Negative - 50 Sam/mcL pH, UA 7.0 5 - 9 Protein, UA Negative Negative - 1999(20) ++++ mg/dL Urobilinogen, UA 0.2 0.2 - 12 mg/dL Leukocytes, UA Trace Negative - 500+++ Supa/mcL Nitrite, UA Negative Negative - Positive Urine 02/01/2025 9:19 AM EDT Maryanne FOWLER POINT OF CARE TEST ENTER/EDIT OR DERABLES Final Result documented in this encounter Visit Diagnoses Diagnosis 35 weeks gestation of ([facility]) Third trimester ([facility]) state, incidental Pruritus Unspecified pruritic disorder Oligohydramnios in third trimester, fetus 1 of multiple gestation ([facility]) SGA (small for gestational age) ([facility]) Hqzyu-dwy-whpfx without mention of malnutrition, unspecified (weight) headache in third trimester ([facility]) documented in this encounter Care Teams Content Strategist Relationship Specialty Start Date End Date David Awan MD [address] [place] [address] PCP - General Family Medicine 07/18/24 documented as of this encounter
--- OUTSIDE RECORDS SUMMARY | 2025-02-01 18:00 | XMS_ITS | Encounter Summary ---
Author Organization [facility] Address [address] [place] [address] Care Team Providers Care Harmonic Analyst Name Role Phone Hazel Grady MD Primary Care Provider [phone] Encounter Details Date Type Department Care Team (Late st Contact Info) Description 01/24/2025 Clinisync Result Encounter [facility] External Department Unsolicited Yogesh Canales DO [address] [place] [address] Jess Flynn, [facility]11 Social History [...] st Contact Info) Description 02/04/[address] [facility] OB [facility] [place] [address] Yogesh Canales DO [address] [place], [place] [phone] 02/12/2025 1:50 PM EDT Office Visit [facility] OB [facility] [place] [address] Maryanne Whiteside PA [address] [place], [place] [phone] documented as of this encounter Procedures Procedure Name Priority Date/Time Associated Diagnosis Comments US OB BPP W NON-STRESS 01/24/2025 10:38 AM EDT documented in this encounter Results * US OB BPP W NON-STRESS (01/24/2025 10:38 AM EDT) Anatomical Region Laterality Modality Other 01/24/2025 10:3 8 AM EDT Narrative 01/24/2025 10:41 [place] [address] Ultrasound Report Signed Patient: JIMBO DOE MR#: [id number] : 2005 Acct:[id number] Age/Sex: 19 / F ADM Date: 01/24/25 Loc: [facility] [address]: Yogesh Canales D.O. Ordering Physician: Yogesh Canales D.O. Date of Service: 01/24/25 Procedure(s): US OB BPP w non-stress Accession Number(s): [id number] cc: Yogesh Canales D.O.; HAZEL GRADY [address] [address] Patient Name: JIMBO DOE MRN: [id number] date: 2005 Sex: F Assigned Patient Location: [facility] Current Patient Location: [facility] Accession/Order Number: [id number] Exam Date: 01/24/2025 10:33 Report Date: 01/24/2025 [...] Nascimento M.D. 01/24/2025 10:38 AM Dictation Location: [place] [address] Electronically authenticated by: [id number] Y Date: 01/24/2025 10:38 Dictated By: Aparna Nascimento M.D. Signed By: 01/24/25 1041 DD/ 1038 TD/TT: Film Maker: Procedure Note Radiology, Radiologist, MD - 01/24/2025 [place] [address] Ultrasound Report Signed Patient: JIMBO DOE RMR#: [id number] : 2005Acct:[id number] Age/Sex: 19 / FADM Date: 01/24/25 Loc: [facility] 250-[address]: Yogesh Canales D.O. Ordering Physician: Yogesh Canales D.O. Date of Service: 01/24/25 Procedure(s): US OB BPP w non-stress Accession Number(s): [id number] cc: Yogesh Canales D.O.; HAZEL GRADY The [address] [address] Patient Name: JIMBO DOE MRN: [id number] date: 2005 Sex: F Assigned Patient Location: [facility] Current Patient Location: [facility] Accession/Order Number: [id number] Exam Date: 01/24/2025 10:33 Report Date: 01/24/2025 [...] Nascimento M.D. 01/24/2025 10:38 AM Dictation Location: [place] [address] Electronically authenticated by: [id number] Y Date: 0:38 Dictated By: Aparna Nascimento M.D. Signed By:01/24/25 1041 DD/ 1038 TD/TT: Film Maker: Yogesh Canales DO [facility] Final Result documented in this encounter Visit Diagnoses Not on filedocumented in this encounter Care Teams Harmonic Analyst Relationship Specialty Start Date End Date Hazel Grady MD [address] [place] [address] PCP - General Family Medicine 07/18/24 documented as of this encounter
--- OUTSIDE RECORDS SUMMARY | 2025-02-01 18:00 | XMS_ITS | Encounter Summary ---
Author Organization [facility] Address [address] [place] [address] Care Team Providers Care Ski Production Supervisor Name Role Phone Hazel Grady MD Primary Care Provider [phone] Encounter Details Date Type Department Care Team (Late st Contact Info) Description 01/25/2025 Clinisync Result Encounter [facility] External Department Unsolicited Yogesh Canales DO [address] [place] [address] Jess Flynn, [facility] Social History Tobacco Use Types Packs/Day Years [...] Abstract [facility] OB [facility] [place] [address] Yogesh Canales DO [address] [place], [place] [id number] 02/12/2025 1:50 PM EDT Office Visit [facility] OB [facility] [place] [address] Maryanne Whiteside PA [address] [place], [place] [phone] documented as of this encounter Procedures Procedure Name Priority Date/Time Associated Diagnosis Comments US OB BPP W NON-STRESS 01/25/2025 3:01 PM EDT documented in this encounter Results * US OB BPP W NON-STRESS (01/25/2025 3:01 PM EDT) Anatomical Region Laterality Modality Other 01/25/2025 3:01 PM EDT Narrative 01/25/2025 3:04 [place] [address] Ultrasound Report Signed Patient: JIMBO DOE MR#: [id number] : 2005 Acct:[id number] Age/Sex: 19 / F ADM Date: 01/25/25 Loc: [facility] Attending Dr: Yogesh Canales D.O. Ordering Physician: Yogesh Canales D.O. Date of Service: 01/25/25 Procedure(s): US OB BPP w non-stress Accession Number(s): [id number] cc: Yogesh Canales D.O.; HAZEL GRADY [address] [address] Patient Name: JIMBO DOE MRN: [id number] date: 2005 Sex: F Assigned Patient Location: [facility] Current Patient Location: Accession/Order Number: [id number] Exam Date: 01/25/2025 14:59 Report Date: 01/25/2025 15:01 At the request of: YOGESH CANALES DO Procedure: US OB BPP w non-stress Biophysical profile. Reason for exam: Oligohydramnios. COMPARISON: BPP 01/24/2025. TECHNIQUE: Transabdominal imaging of the gravid uterus was obtained. FINDINGS: Design Studio Consultant reports a BPP of 8 out of 8. JEROD is normal 11.4 cm. heart rate 159 bpm. US/US OB BPP w non-stress Impression: BPP 8 out of 8. Impression dictated by: Stanislav Francisco Jr., D.O. 01/25/2025 3:01 PM Dictation Location: [place] [address] Electronically authenticated by: [id number] Y Date: 01/25/2025 15:01 Dictated By: Stanislav Francisco M.D. Signed By: 01/25/25 1504 DD/ 1501 TD/TT: Pulp Refiner Operator: Procedure Note Radiology, Radiologist, MD - 01/25/2025 [place] [address] Ultrasound Report Signed Patient: JIMBO DOE RMR#: [id number] : 2005Acct:[id number] Age/Sex: 19 / FADM Date: 01/25/25 Loc: [facility] Attending Dr: Yogesh Canales D.O. Ordering Physician: Yogesh Canales D.O. Date of Service: 01/25/25 Procedure(s): US OB BPP w non-stress Accession Number(s): [id number] cc: Yogesh Canales D.O.; HAZEL GRADY The [place] [address] Patient Name: JIMBO DOE MRN: [id number] date: 2005 Sex: F Assigned Patient Location: [facility] Current Patient Location: Accession/Order Number: [id number] Exam Date: 01/25/2025 14:59 Report Date: 01/25/2025 15:01 At the request of: YOGESH CANALES DO Procedure: US OB BPP w non-stress Biophysical profile. Reason for exam: Oligohydramnios. COMPARISON: BPP 01/24/2025. TECHNIQUE: Transabdominal imaging of the gravid uterus was obtained. FINDINGS: Design Studio Consultant reports a BPP of 8 out of 8. JEROD is normal 11.4 cm. heart rate 159 bpm. US/US OB BPP w non-stress Impression: BPP 8 out of 8. Impression dictated by: Stanislav Francisco Jr., D.O. 01/25/2025 3:01 PM Dictation Location: [place] [address] Electronically authenticated by: [id number] Y Date: 5:01 Dictated By: Stanislav Francisco M.D. Signed By:01/25/25 1504 DD/ 1501 TD/TT: Pulp Refiner Operator: us Yogesh Ally DO [facility] Final Result documented in this encounter Visit Diagnoses Not on filedocumented in this encounter Care Teams Ski Production Supervisor Relationship Specialty Start Date End Date Hazel Grady MD [address] [place] [address] PCP - General Family Medicine 07/18/24 documented as of this encounter
--- OUTSIDE RECORDS SUMMARY | 2025-02-01 18:00 | XMS_ITS | Encounter Summary ---
Author Organization [facility] Address [address] [place] [address] Care Team Providers Care Donor Relations Manager Name Role Phone David Awan MD Primary Care Provider [phone] Encounter Details Date Type Department Care Team (Late st Contact Info) Description 02/01/2025 Bamboo flowsheet [facility] OB [address] [facility] [address] Maryanne Whiteside, PA [address] [place] [address] Dr [place], [facility]11 Social History Tobacco Use Types Packs/Day [...] st Contact Info) Description 02/04/2025 Abstract [facility] OB [address] [facility] [place] [address] Cb Canales DO [address] [place], [place] [address]Georgia [place], [facility]11 02/12/2025 1:50 PM EDT Office Visit [facility] OB [address] [place], [place] [address] [place] [address] MieshaMaryanne wilks PA [address] [place] [address] [place] [address] documented as of this encounter Visit Diagnoses Not on filedocumented in this encounter Care Teams Donor Relations Manager Relationship Specialty Start Date End Date David Awan MD [address] [place] [address] PCP - General Family Medicine 07/18/24 documented as of this encounter
--- OUTSIDE RECORDS SUMMARY | 2025-02-01 18:00 | XMS_ITS | Clinical Summary ---
Author Organization [facility] Address [address] [place] [address] Care Team Providers Care Gasoline Attendant Name Role Phone Hazel Grady MD Primary Care Provider [phone] Allergies Active Allergy Reactions Criticality Noted Date Comments Amoxicillin Rash Low 2003 Medications sertraline (Zoloft) 50 MG tablet Take 50 mg by mouth at bedtime 04/05/2024 Active promethazine (Phenergan) 12.5 MG tabletIndicatio ns: headache, antepartum ([facility]) Take 1 tablet (12.5 mg) by mouth [...] 8:50 AM EDT Routine [facility] [address] [place] [address] [place] [address] Maryanne Whiteside PA 35 weeks gestation of ([facility]); Third trimester ([facility]); Pruritus; Oligohydramnios in third trimester, fetus 1 of multiple gestation ([facility]); SGA (small for gestational age) ([facility]); headache in third trimester ([facility]) 02/01/2025 Clinisync Result Encounter [facility]OM[facility] External Department Unsolicited Yogesh Canales, DO 02/01/2025 Bamboo flowsheet [facility] [address] [place] [address] Maryanne Whiteside PA 01/31/2025 Abstract [facility] [address] [place] [address] Yogesh Canales, DO 01/31/2025 Clinisync Result Encounter NOMS External Department Unsolicited Yogesh Canales, DO 01/25/2025 8:40 AM EDT Routine [facility]OM[facility] [address] [place] [address] Yogesh Canales, DO Third trimester ([facility]); 34 weeks gestation of ([facility]) 01/25/2025 Clinisync Result Encounter [facility] External Department Unsolicited Yogesh Canales, DO 01/25/2025 Bamboo flowsheet [facility] [address] [place] [address] Yogesh Canales, DO 01/24/2025 Clinisync Result Encounter [facility]OMS External Department Unsolicited Yogesh Canales, DO 01/18/20[address] Abstract [facility] [address] [place] [address] Zita Jade MA 01/18/2025 External Result Encounter [facility] [address] [place] [address] [place] [address] Yogesh Canales, DO 01/17/2025 Clinisync Result Encounter [facility]OM[facility] External Department Unsolicited Yogesh Canales, DO 01/11/2025 1:30 PM EDT Routine [facility] [address] [place] [address] [place] [address] Maryanne Whiteside PA Third trimester ([facility]); 32 weeks gestation of ([facility]); Pruritus 01/11/2025 Clinisync Result Encounter [facility] External Department Unsolicited Maryanne Whiteside PA 01/11/2025 Bamboo flowsheet [facility] OB [address] [facility] [address] Maryanne Whiteside PA 01/10/2025 Clinisync Result Encounter [facility] External Department Unsolicited Ally, Yogesh, DO 01/06/2025 Clinisync Result Encounter [facility] External Department Unsolicited Ally, Yogesh, DO 01/03/2025 Clinisync Result Encounter [facility]OM[facility] External Department Unsolicited Ally, Yogesh, DO 12/28/2024 9:50 AM EDT Routine [facility] OB [address] [place] [address] Yogesh Canales, DO 30 weeks gestation of ([facility]); Third trimester ([facility]); Oligohydramnios in third trimester, fetus 1 of multiple gestation ([facility]) 12/28/2024 9:00 AM EDT Ancillary Procedure [facility] OB [address] [place] [address] size inconsistent with dates ([facility]) 12/16/2024 Clinisync Result Encounter [facility]OM[facility] External Department Unsolicited Yogesh Canales, DO 12/15/2024 Clinisync Result Encounter [facility]OMS External Department Unsolicited AllyYogesh noyola, DO 12/06/2024 1:20 PM EDT Routine [facility] [address] [place] [address] Lynette Gunter NP size inconsistent with dates ([facility]) (Primary Dx); 27 weeks gestation of ([facility]); Second trimester ([facility]) 12/06/2024 Travel 12/06/2024 Bamboo flowsheet [facility] OB [address] [place] [address] Lynette Gunter NP 11/30/2024 Clinisync Result Encounter [facility]OMS External Department Unsolicited Yogesh Canales, DO 11/15/2024 10:50 AM EDT Routine [facility] [address] [place] [address] Yogesh Canales DO 24 weeks gestation of ([facility]); Second trimester ([facility]); Diabetes mellitus screening 11/15/2024 10:00 AM EDT Ancillary Procedure [facility] [address] [place] [address] Encounter for follow-up ultrasound of anatomy ([facility]) 11/01/[address] [address] [place] [address] Yogesh Canales DO from Last 3 [...] st Contact Info) Description 02/04/2025 Abstract [facility] [address] [place] [address] Yogesh Canales DO [address] [place] [address] [place], [place] [id number] 02/12/2025 1:50 PM EDT Office Visit [facility] [address] [place] [address] Maryanne Whiteside PA [address] [place] [address] [place], [place] [id number] Procedures Procedure Name Priority Date/Time Associated Diagnosis Comments TBH TOTAL PROTEIN 24 HOUR URINE Routine 02/01/2025 11:30 AM EDT POCT URINALYSIS DIPSTICK Routine 02/01/2025 9:19 AM EDT 35 weeks gestation of ([facility]) Third trimester ([facility]) Pruritus Oligohydramnios in third trimester, fetus 1 of multiple gestation ([facility]) MHPT FIBRINOGEN Routine 01/31/2025 11:36 AM EDT [...] Routine 01/25/2025 9:22 AM EDT Third trimester ([facility]) US OB BPP W NON-STRESS 01/24/2025 10:38 [...] 10:23 AM EDT 30 weeks gestation of ([facility]) US OB FOLLOW UP TRANSABDOMINAL APPROACH Routine 12/28/2024 9:43 AM EDT size inconsistent with dates ([facility]) TBH URINE T PROTEIN CREAT RATIO Routine [...] AM EDT [facility] CMP (CMP) (FOR REMOTE C USE) Routine 12/16/2024 12:30 AM EDT ALL CBC WITH AUTO DIFF Routine 12:30 AM EDT TBH URINE MICROSCOPIC ONLY Routine 12/15/2024 11:00 PM EDT TBH UA (CLEAN/CATCH) ROAD ENGINEER/MICRO IF IND. Routine 12/15/2024 11:00 PM EDT POCT URINALYSIS DIPSTICK Routine 12/06/2024 1:28 PM EDT 27 weeks gestation of ([facility]) Second trimester ([facility]) GLUCOSE 1 HOUR Routine 11/30/2024 2:12 PM EDT ALL CBC WITH AUTO DIFF Routine 2:12 PM EDT POCT URINALYSIS DIPSTICK Routine 11/15/2024 10:42 AM EDT 24 weeks gestation of ([facility]) Second trimester ([facility]) US OB LIMITED 1+ FETUSES Routine 11/15/2024 10:24 AM EDT Encounter for follow-up ultrasound of anatomy ([facility]) from Last 3 Months Results * (ABNORMAL) TBH TOTAL PROTEIN 24 HOUR URINE (02/01/2025 11:30 AM EDT) TOTAL PROTEIN URINE RANDOM 12.1(H) <=11.9 mg/dL TBH TOTAL VOLUME 24 HOUR URINE 1,300 mL/24hr TBH TBH TOTAL PROTEIN 24 HOUR URINE 157.3(H) <=149.1 mg/24hr TBH 02/01/2025 11:3 0 AM EDT 02/01/2025 11:45 AM EDT Narrative CLINISYNC - 02/01/2025 2:03 PM EDT us Yogesh Canales DO [facility] Final [facility] * (ABNORMAL) POCT urinalysis dipstick manually resulted [...] - 9 Protein, UA Negative Negative - 2000(20) ++++ mg/dL Urobilinogen, UA 0.2 0.2 - 12 mg/dL Leukocytes, UA Trace Negative - 500+++ Supa/mcL Nitrite, UA Negative Negative - Positive Urine 02/01/2025 9:19 AM EDT Maryanne FOWLER POINT OF CARE TEST ENTER/EDIT OR DERABLES Final Result * (ABNORMAL) TBH CREATININE (01/31/2025 11:36 AM EDT) CREATININE 0.46(L) 0.55 - 1.02 mg/dL TBH TBH EGFR-AF INDIAN >60 >=60 mL/min/1.7 3m 2 TBH TBH EGFR-NON AF INDIAN >60 >=60 mL/min/1.7 3m 2 TBH 01/31/2025 11:3 6 AM EDT 01/31/2025 11:41 AM EDT Narrative CLINISYNC - 01/31/2025 12:02 PM EDT Yogesh Ally DO CLINISYNC Final Result CLINISYNC [facility] * SRMCOH PROTHROMBIN TIME INR W/O COUM (01/31/2025 11:36 AM EDT) PROTHROMBIN TIME 9.8 9.0 - 11.6 sec TBH TBH INR <0.93 TBH Comment: DESIRED INR: 2.0-3.0 CONDITIONS NOT LISTED BELOW 2.5-3.5 FOR PROSTHETIC HEART VALVE REPLACEMENT 2.5-3.5 RECURRENT THROMBOSIS 01/31/2025 11:3 6 AM EDT 01/31/2025 11:41 AM EDT Narrative CLINISYNC - 01/31/2025 12:22 PM EDT NewsCastic Ally DO CLINISYNC Final Result Performing Organization Address [facility] Co de Phone Number CLINISYNC TB * (ABNORMAL) MHPT FIBRINOGEN (01/31/2025 11:36 AM EDT) FIBRINOGEN 469(H) 200 - 400 mg/dL TBH 01/31/2025 11:3 6 AM EDT 01/31/2025 11:41 AM EDT Narrative CLINISYNC - 01/31/2025 12:22 PM EDT MaestroDevzio DO CLINISYNC Final Result Performing Organization Address City/[facility]/ZIP Co de Phone Number CLINISYNC TB * (ABNORMAL) [facility] AST (01/31/2025 11:36 AM EDT) ASPARTATE AMINO TRANSFERASE 11(L) 15 - 37 U/L TB 01/31/2025 11:3 6 AM EDT 01/31/2025 11:41 AM EDT Narrative CLINISYNC - 01/31/2025 12:02 PM EDT us Yogesh Ally DO CLINISYNC Final Result CLINISYNC TB * CCF APTT (01/31/2025 11:36 AM EDT) PARTIAL THROMBOPLASTIN TIME 26.7 22.3 - 36.2 sec TB 01/31/2025 11:3 6 AM EDT 01/31/2025 11:41 AM EDT Narrative CLINISYNC - 01/31/2025 12:22 PM EDT Yogesh Ally DO CLINISYNC Final Result CLINISYNC TB * (ABNORMAL) [facility] ALT (01/31/2025 11:36 AM EDT) ALANINE AMINOTRANSFERASE 13(L) 14 - 59 U/L TB 01/31/2025 11:3 6 AM EDT 01/31/2025 11:41 AM EDT Narrative CLINISYNC - 01/31/2025 12:02 PM EDT Yogesh Ally DO CLINISYNC Final [facility] * ALL URIC ACID (01/31/2025 11:36 AM EDT) Only the most recent of2 resultswithin the time period is included. URIC ACID 3.7 2.6 - 6.0 mg/dL TB 01/31/2025 11:3 6 AM EDT 01/31/2025 11:41 AM EDT Narrative CLINISYNC - 01/31/2025 12:02 PM EDT us Yogesh Canales DO CLINISYNC Final Result [facility] * (ABNORMAL) ALL CBC WITH AUTO DIFF (01/31/2025 11:36 AM EDT) Only the most recent of5 resultswithin the time period is included. TBH WBC 10.4 4.0 - 11.0 10 [...] DO CLINISYNC Final Result Performing Organization Address [facility] Co de Phone Number [facility] * (ABNORMAL) ALL BUN (01/31/2025 11:36 AM EDT) BLOOD UREA NITROGEN 5.0(L) 7.0 - 18.0 mg/dL TB 01/31/2025 11:3 6 AM EDT 01/31/2025 11:41 AM EDT Narrative CLINISYNC - 01/31/2025 12:02 PM EDT Yogesh Ally DO CLINISYNC Final Result Performing Organization Address [facility] de Phone Number [facility] * TBH URINE T PROTEIN CREAT RATIO (01/31/2025 11:30 AM EDT) Only the most recent of2 resultswithin the time period is included. TOTAL PROTEIN URINE RANDOM 8.3 <=11.9 mg/dL TBH CREATININE URINE RANDOM 42.26 20.00 - 300.00 mg/dL TBH PROTEIN CREATININE RATIO URINE 0.20 TBH 01/31/2025 11:3 0 AM EDT 01/31/2025 11:41 AM EDT Narrative CLINISYNC - 01/31/2025 1:06 PM EDT Yogesh Ally DO CLINISYNC Final Result Performing Organization Address [facility] de Phone Number [facility] * US OB BPP W NON-STRESS (01/31/2025 11:08 AM EDT) Only the most recent of6 resultswithin the time period is included. Anatomical Region Laterality Modality Other 01/31/2025 11:0 8 AM EDT Narrative 01/31/2025 11:11 [place] [address] Ultrasound Report Signed Patient: FRANCES DOE MR#: [id number] : 2005 Acct:[id number] Age/Sex: 19 / F ADM Date: 01/31/25 Loc: [facility] 254-[address]: Yogesh Canales D.O. Ordering Physician: Yogesh Canales D.O. Date of Service: 01/31/25 Procedure(s): US OB BPP w non-stress Accession Number(s): [id number] cc: Yogesh Canales D.O.; HAZEL GRADY [place] [address] Patient Name: FRANCES DOE MRN: [facility]:[id number] date: 2005 Sex: F Assigned Patient Location: [facility] Current Patient Location: [facility] Accession/Order Number: [id number] Exam Date: 01/31/2025 11:05 Report Date: 01/31/2025 11:08 At the request of: YOGESH CANALES DO Procedure: US OB BPP w non-stress BIOPHYSICAL PROFILE: CLINICAL INFORMATION: Oligohydramnios COMPARISON: 01/25/2025 There is a single live intrauterine gestation in cephalic presentation. The reported gestational age is 35 weeks 4 days. The heart rate [id number] beats per minute. FINDINGS: TONE: 1 or [...] Nascimento M.D. 01/31/2025 11:08 AM Dictation Location: [place] [address] Electronically authenticated by: [id number] Y Date: 01/31/2025 11:08 Dictated By: Aparna Nascimento M.D. Signed By: 01/31/25 1111 DD/ 1108 TD/TT: Director Community [facility]: Procedure Note Radiology, Radiologist, MD - 01/31/2025 [place] [address] Ultrasound Report Signed Patient: FRANCES DOE RMR#: [id number] : 2005Acct:[id number] Age/Sex: 19 / FADM Date: 01/31/25 Loc: [facility] 254-[address]: Yogesh Canales D.O. Ordering Physician: Yogesh Canales D.O. Date of Service: 01/31/25 Procedure(s): US OB BPP w non-stress Accession Number(s): [id number] cc: Yogesh Canales D.O.; HAZEL GRADY [place] [address] Patient Name: FRANCES DOE MRN: TBH:[id number] date: 2005 Sex: F Assigned Patient Location: [facility] Current Patient Location: [facility] Accession/Order Number: [id number] Exam Date: 01/31/2025 11:05 Report Date: 01/31/2025 11:08 At the request of: YOGESH CANALES DO Procedure: US OB BPP w non-stress BIOPHYSICAL PROFILE: CLINICAL INFORMATION: Oligohydramnios COMPARISON: 01/25/2025 There is a single live intrauterine gestation in cephalic presentation.The reported gestational age is 35 weeks 4 days. The heart [id number] beats per minute. FINDINGS: TONE: 1 or [...] Nascimento M.D. 01/31/2025 11:08 AM Dictation Location: [place] [address] Electronically authenticated by: [id number] Y Date: 1:08 Dictated By: Aparna Nascimento M.D. Signed By:01/31/25 1111 DD/ 1108 TD/TT: Director Community Center: us Yogesh Canales DO CLINISYNC IMAGING Final Result * US OB 14+ weeks anatomy scan (01/18/2025 10:30 AM EDT) Anatomical Region Laterality Modality Body Ultrasound 01/18/2025 10:3 0 AM EDT Narrative 01/18/2025 10:30 AM EDT THIS EXAM WAS PERFORMED AT [facility] NAME: BROOK CHOI : 2005 SEX: F Accession Number: [id number] ORDERING PHYSICIAN: YOGESH CANALES REFERRING PHYSICIAN: YOGESH CANALES Coding ----- --------- Procedures 24428: Ultrasound, uterus, real time with image documentation, [...] EFW (oz) 14 oz EFW by: Hadlock ([id number]) Extended Tibia 56.1 mm 32w 6d 45% Tj Senior Climate Advisor 2.0 mm Head / Face / Neck [...] Heart / Thorax RVOT view. LVOT view. 9-ceuhpi-qixpswp view. Aortic arch view. Bicaval view. Ductal [...] - 01/18/2025 THIS EXAM WAS PERFORMED AT [facility] NAME: BROOK CHOI : 2005 SEX: F Accession Number: [id number] ORDERING PHYSICIAN: YOGESH CANALES REFERRING PHYSICIAN: YOGESH CANALES Coding ----- --------- Procedures 79030: Ultrasound, uterus, real time with imagedocumentation, and [...] EFW (oz) 14 oz EFW by: Hadlock ([id number]-LC-FL) Extended Tibia 56.1 mm 32w 6d 45% Tj Senior Climate Advisor 2.0 mm Head / Face / Neck [...] Heart / Thorax RVOT view. LVOT view. 7-ckjuwl-dteeuwq view. Aortic archview. Bicaval view. Ductal arch [...] byprimary OB provider unless otherwise specified by M. Results forwarded to ordering provider so they can follow up with thepatient as necessary. us Yogesh Canales DO IMG OB US PROCEDURES Final Resul t * (ABNORMAL) [facility] LIVER PANEL (01/11/2025 2:14 PM EDT) BILIRUBIN TOTAL 0.2 0.2 - 1.0 mg/dL TB BILIRUBIN DIRECT 0.1 0.0 - 0.2 mg/dL [...] Maryanne HER Final Result Performing Organization Address [facility] Co de Phone Number [facility] * [facility] BILE ACIDS FRACT BLD (01/11/2025 2:14 PM EDT) BILE ACIDS 1.6 0.0 - 10.0 umol/L TBH Comment: Performed at: [address] [id number] Network Intelligence Analyst: Mac Chawla MD, Phone: [phone] 01/11/2025 2:14 PM EDT 01/11/2025 2:18 PM EDT Narrative CLINISYNC - 01/12/2025 3:09 PM EDT us Maryanne HER Final Result Performing Organization Address [facility] Co de Phone Number [facility] * ALL THYROID STIM HORMONE (01/11/2025 2:14 PM EDT) THYROID STIMULATING HORMONE 0.457 0.358 - 3.740 uIU/mL TBH 01/11/2025 2:14 PM EDT 01/11/2025 2:18 PM EDT Narrative CLINISYNC - 01/11/2025 3:18 PM EDT Maryanne HER Final Result Performing Organization Address [facility] Co de Phone Number [facility] * ALL HEPATITIS C AB (01/11/2025 2:14 PM EDT) [facility] HCV ANTIBODY Non Reactive Non Reactive [facility] Comment: HCV antibody alone does not differentiate between previously resolved infection and active infection. Equivocal and Reactive HCV antibody results should be followed up with an HCV RNA test to support the diagnosis of active HCV infection. Performed at: [address] [id number] Network Intelligence Analyst: Porter Kamara PhD, Phone: [phone] 01/11/2025 2:14 PM EDT 01/11/2025 2:18 PM EDT Narrative CLINISYNC - 01/12/2025 5:07 AM EDT us Maryanne HER Final Result Performing Organization Address [facility] Phone Number [facility] * AMNISURE (01/06/2025 11:15 AM EDT) [facility] AMNISURE NEGATIVE NEGATIVE [facility] 01/06/2025 11:1 5 AM EDT 01/06/2025 11:29 AM EDT Narrative CLINISYNC - 01/06/2025 11:41 AM EDT us Yogesh Ally DO LAB BLOOD ORDERABLES Final Resul t Performing Organization Address [facility] Co de Phone Number [facility] * US OB follow up transabdominal approach [...] II, MD, PHD at 29-Dec-2024 12:17:39 PM [facility] Procedure Note Dorothy Duckworth MD - [...] signed by DOROTHY DUCKWORTH II, MD, PHD [id number] 12:17:39 PM [facility] us Lynette Gunter LICENSING OFFICER IMG OB US PROCEDURES Final Re sult [...] 0.55 - 1.02 mg/dL TBH TBH EGFR-AF INDIAN >60 >=60 mL/min/1. 73m 2 TBH TBH EGFR-NON AF INDIAN >60 >=60 mL/min/1. 73m 2 TBH BUN [...] EDT Yogesh Ally DO CLINISYNC Final Result [facility] * ALL AMYLASE (12/16/2024 12:41 PM EDT) Only the most recent of2 resultswithin the time period is included. AMYLASE 36 25 - 115 U/L TB 12/16/2024 12:4 1 PM EDT 12/16/2024 12:44 PM EDT Narrative CLINISYNC - 12/16/2024 1:22 PM EDT Yogesh Ally DO CL[facility]ISYNC Final Result [facility] * (ABNORMAL) TBH URINE MICROSCOPIC ONLY [...] CLINISYNC Final Result CLINISYNC TBH * (ABNORMAL) TBH UA (CLEAN/CATCH) ROAD ENGINEER/MICRO IF IND. (12/15/2024 11:00 PM EDT) [...] DO CLINISYNC Final Result CLINISYNC TBH * GLUCOSE 1 HOUR (11/30/2024 2:12 PM EDT) GLUCOSE 1 HOUR 96 <130 mg/dL TBH 11/30/2024 2:12 PM EDT 11/30/2024 2:14 PM EDT Narrative CLINISYNC - 11/30/2024 3:11 PM EDT us Yogesh Ally DO LAB BLOOD ORDERABLES Final Resul t [facility] * US OB limited 1+ [...] II, MD, PHD at 17-Nov-2024 06:24:10 AM [facility] Procedure Note Dorothy Duckworth MD - [...] signed by DOROTHY DUCKWORTH II, MD, PHD [id number] 06:24:10 AM [facility] us Yogesh Ally DO IMG OB US PROCEDURES Final Resul t from Last 3 Months Insurance [facility] Care Teams Gasoline Attendant Relationship Specialty Start Date End Date Hazel Grady MD [address] [place] [address] PCP - General Family Medicine 07/18/24
--- OUTSIDE RECORDS SUMMARY | 2025-02-01 18:00 | XMS_ITS | Encounter Summary ---
Author Organization [facility] Address [address] [place] [address] Care Team Providers Care Business Analysis Consultant Name Role Phone David Awan MD Primary Care Provider [phone] Encounter Details Date Type Department Care Team (Late st Contact Info) Description 01/18/2025 External Result Encounter [facility] OB [address] [place] [address] Yogesh Canales DO [facility] [place], [facility] Social History Tobacco Use Types Packs/Day Years [...] st Contact Info) Description 02/04/2025 Abstract [facility] OB [address] [place] [address] Yogesh Canales DO [facility] [address] 02/12/2025 1:50 PM EDT Office Visit [facility] OB [address] [place] [address] Maryanne Whiteside PA [address] [place] [address] [place] [address] documented as of this encounter Procedures Procedure Name Priority Date/Time Associated Diagnosis Comments US OB 14+ WEEKS ANATOMY SCAN 01/18/2025 10:30 AM EDT documented in this encounter Results * US OB 14+ weeks anatomy scan (01/18/2025 10:30 AM EDT) Anatomical Region Laterality Modality Body Ultrasound 01/18/2025 10:3 0 AM EDT Narrative 01/18/2025 10:30 AM EDT THIS EXAM WAS PERFORMED AT [facility] NAME: BROOK CHOI : 2005 SEX: F Accession Number: [id number] ORDERING PHYSICIAN: YOGESH CANALES REFERRING PHYSICIAN: YOGESH CANALES Coding ----- --------- Procedures 77982: Ultrasound, uterus, real time with image documentation, [...] EFW (oz) 14 oz EFW by: Hadlock ([id number]-FL) Extended Tibia 56.1 mm 32w 6d 45% Tj Assembler Cards And Announcements 2.0 mm Head / Face / Neck [...] Heart / Thorax RVOT view. LVOT view. 7-xmkcai-txqsshr view. Aortic arch view. Bicaval view. Ductal [...] - 01/18/2025 THIS EXAM WAS PERFORMED AT [facility] NAME: BROOK CHOI : 2005 SEX: F Accession Number: [id number] ORDERING PHYSICIAN: YOGESH CANALES REFERRING PHYSICIAN: YOGESH CANALES Coding ----- --------- Procedures [id number]: Ultrasound, uterus, real time with imagedocumentation, and [...] EFW (oz) 14 oz EFW by: Hadlock ([id number]-FL) Extended Tibia 56.1 mm 32w 6d 45% Tj Assembler Cards And Announcements 2.0 mm Head / Face / Neck [...] Heart / Thorax RVOT view. LVOT view. 0-nqjrpu-ixahixv view. Aortic archview. Bicaval view. Ductal arch [...] on filedocumented in this encounter Care Teams Business Analysis Consultant Relationship Specialty Start Date End Date David Awan MD [address] [place] [address] PCP - General Family Medicine 07/18/24 documented as of this encounter
--- OUTSIDE RECORDS SUMMARY | 2025-02-01 18:00 | XMS_ITS | Encounter Summary ---
Author Organization [facility] tem Address [id number] [address] [place] [address] Care Team Providers Care Toys Inspector Name Role Phone Unavailable Primary Care Provider Unavailabl e Encounter Details Date Type Department Care Team (Late st Contact Info) Description 01/04/2025 Orders Only Maternal- Medicine at [facility] [address] [place] [phone] Ref [place], [place] [address] Social History Tobacco Use Types Packs/Day Years [...] 10:58 AM EDT) Anatomical Region Laterality Modality OB-NETWORK FIREWALL ENGINEER Ultrasound us Not In System Ref Prov IMG US ORDERABLES Final R esult * Ultrasound limited 1 or more fetus (01/04/2025 10:56 AM EDT) Anatomical Region Laterality Modality OB-NETWORK FIREWALL ENGINEER Ultrasound us Not In System Ref Prov IMG US ORDERABLES Final R esult * Ultrasound limited 1 or more fetus (01/04/2025 10:55 AM EDT) Anatomical Region Laterality Modality OB-NETWORK FIREWALL ENGINEER Ultrasound us Not In System Ref Prov IMG US ORDERABLES Final R esult * Ultrasound limited 1 or more fetus (01/04/2025 10:54 AM EDT) Anatomical Region Laterality Modality OB-NETWORK FIREWALL ENGINEER Ultrasound us Not In System Ref Prov IMG US ORDERABLES Final R esult * Ultrasound limited 1 or more fetus (01/04/2025 10:51 AM EDT) Anatomical Region Laterality Modality OB-NETWORK FIREWALL ENGINEER Ultrasound us Not In System Ref Prov IMG US ORDERABLES Final R esult documented in this encounter Visit Diagnoses Not on filedocumented in this encounter
--- OUTSIDE RECORDS SUMMARY | 2025-02-01 18:00 | XMS_ITS | Encounter Summary ---
Author Organization [facility] Address [address] [place] [address] Care Team Providers Care Master Planner Name Role Phone David Awan MD Primary Care Provider [phone] Encounter Details Date Type Department Care Team (Late st Contact Info) Description 07/18/[address] [facility] [address] [address] Pepper [place], [facility]11 Social History Tobacco Use Types [...] Info) Description 02/04/[address] [facility] OB [address] [place] [address] Cb Canales DO [facility] [place] [address] 02/12/2025 1:50 PM EDT Office Visit [facility] OB [facility] [place] [address] Maryanne Whiteside PA [address] [place], [place] [address] documented as of this encounter Visit Diagnoses Not on filedocumented in this encounter Care Teams Master Planner Relationship Specialty Start Date End Date David Awan MD [address] [place] [address] PCP - General Family Medicine 07/18/24 documented as of this encounter
--- OUTSIDE RECORDS SUMMARY | 2025-02-01 18:00 | XMS_ITS | Encounter Summary ---
Author Organization [facility] Address [address] [place] [place] [address] Care Team Providers Care Equipment Worker Name Role Phone David Awan MD Primary Care Provider [phone] Encounter Details Date Type Department Care Team (Late st Contact Info) Description 01/25/2025 Bamboo flowsheet NOMS [facility] OB [address] [facility] [place] [address] Cb Canales DO [address] [place] [address] Dr Pepper Flynn, [facility]11 Social History Tobacco Use Types [...] st Contact Info) Description 02/04/2025 Abstract N[facility] OB [address] [place] [address] Cb Canales DO [facility] [address] [place], [place] [address] 02/12/2025 1:50 PM EDT Office Visit N[facility] OB [facility] [place] [address] Maryanne Whiteside PA [address] [place] [address] [place] [address] documented as of this encounter Visit Diagnoses Not on filedocumented in this encounter Care Teams Equipment Worker Relationship Specialty Start Date End Date David Awan MD [address] [place] [address] PCP - General Family Medicine 07/18/24 documented as of this encounter
--- OUTSIDE RECORDS SUMMARY | 2025-02-01 18:00 | XMS_ITS | Encounter Summary ---
Author Organization [facility] Address [address] [place] [address] Care Team Providers Care Casting Coordinator Name Role Phone Hazel Grady MD Primary Care Provider [phone] Encounter Details Date Type Department Care Team (Late st Contact Info) Description 01/31/2025 Clinisync Result Encounter NOMS External Department Unsolicited Yogesh Canales DO [address] [place] [address] Jess Flynn, [facility]11 Social History Tobacco Use Types Packs/Day [...] st Contact Info) Description 02/04/2025 Abstract [facility] OB [facility] [place] [address] Yogesh Canales DO [address] [place], [place] [address] 02/12/2025 1:50 PM EDT Office Visit [facility] OB [facility] [place] [address] Maryanne Whiteside PA [address] [place], [place] [address] documented as of this encounter Procedures Procedure [...] DO CLINISYNC Final Result Performing Organization Address City/[facility] Co de Phone Number CLINIS[facility]NC [facility] * SRMCOH PROTHROMBIN TIME INR W/O COUM (01/31/2025 11:36 AM EDT) PROTHROMBIN TIME 9.8 9.0 - 11.6 sec TBH TBH INR <0.93 TBH Comment: DESIRED INR: 2.0-3.0 CONDITIONS NOT LISTED BELOW 2.5-3.5 FOR PROSTHETIC HEART VALVE REPLACEMENT 2.5-3.5 RECURRENT THROMBOSIS 01/31/2025 11:3 6 AM EDT 01/31/2025 11:41 AM EDT Narrative CLINISYNC - 01/31/2025 12:22 PM EDT Freever Ally DO CLINISYNC Final Result Performing Organization Address [facility] Co de Phone Number CLINISYNC TB * (ABNORMAL) [facility] ALT (01/31/2025 11:36 AM EDT) ALANINE AMINOTRANSFERASE 13(L) 14 - 59 U/L TBH 01/31/2025 11:3 6 AM EDT 01/31/2025 11:41 AM EDT Narrative CLINISYNC - 01/31/2025 12:02 PM EDT Vanuzio DO CLINISYNC Final Result CLINISYNC TB * (ABNORMAL) [facility] AST (01/31/2025 11:36 AM EDT) ASPARTATE AMINO TRANSFERASE 11(L) 15 - 37 U/L TBH 01/31/2025 11:3 6 AM EDT 01/31/2025 11:41 AM EDT Narrative CLINISYNC - 01/31/2025 12:02 PM EDT Yogesh Ally DO CLINISYNC Final Result CLINISYNC TB * ALL URIC ACID (01/31/2025 11:36 AM EDT) URIC ACID 3.7 2.6 - 6.0 mg/dL TB 01/31/2025 11:3 6 AM EDT 01/31/2025 11:41 AM EDT Narrative CLINISYNC - 01/31/2025 12:02 PM EDT Yogesh Ally DO CLINISYNC Final Result Performing Organization Address [facility]/ZIP Co de Phone Number CLINISYNC TB * (ABNORMAL) TBH CREATININE (01/31/2025 11:36 AM EDT) CREATININE 0.46(L) 0.55 - 1.02 mg/dL TBH TBH EGFR-AF MARTINIQUAIS >60 >=60 mL/min/1.7 3m 2 TBH TBH EGFR-NON AF MARTINIQUAIS >60 >=60 mL/min/1.7 3m 2 TBH 01/31/2025 11:3 6 AM EDT 01/31/2025 11:41 AM EDT Narrative CLINISYNC - 01/31/2025 12:02 PM EDT Yogeshcami Herrerao DO CLINISYNC Final Result Performing Organization Address City/[facility]/ZIP Co de Phone Number CLINISYNC TB * (ABNORMAL) ALL BUN (01/31/2025 11:36 AM EDT) BLOOD UREA NITROGEN 5.0(L) 7.0 - 18.0 mg/dL TBH 01/31/2025 11:3 6 AM EDT 01/31/2025 11:41 AM EDT Narrative CLINISYNC - 01/31/2025 12:02 PM EDT us Yogesh Ally DO CLINISYNC Final Result CLINISYNC TB * (ABNORMAL) ALL CBC WITH AUTO DIFF (01/31/2025 11:36 AM EDT) Pathologist [facility] TB WBC 10.4 4.0 - 11.0 10 [...] CLINISYNC - 01/31/2025 11:55 AM EDT Yogesh Canales DO CLINIS[facility]NC Final Result [facility] * TBH URINE T PROTEIN CREAT RATIO (01/31/2025 11:30 AM EDT) TOTAL PROTEIN URINE RANDOM 8.3 <=11.9 mg/dL TBH CREATININE URINE RANDOM 42.26 20.00 - 300.00 mg/dL TBH PROTEIN CREATININE RATIO URINE 0.20 TBH 01/31/2025 11:3 0 AM EDT 01/31/2025 11:41 AM EDT Narrative CLINISYNC - 01/31/2025 1:06 PM EDT Yogesh Canales DO [facility] Final Result Performing Organization Address [facility] Co de Phone Number [facility] TB * US OB BPP W NON-STRESS (01/31/2025 11:08 AM EDT) Anatomical Region Laterality Modality Other 01/31/2025 11:0 8 AM EDT Narrative 01/31/2025 11:[place] [address] Ultrasound Report Signed Patient: FRANCES DOE MR#: [id number] : 2005 Acct:[id number] Age/Sex: 19 / F ADM Date: 01/31/25 Loc: [facility] 254-[address]: Yogesh Canales D.O. Ordering Physician: Yogesh Canales D.O. Date of Service: 01/31/25 Procedure(s): US OB BPP w non-stress Accession Number(s): [id number] cc: Yogesh Canales D.O.; HAZEL GRADY [place] [address] Patient Name: FRANCES DOE MRN: [id number] date: 2005 Sex: F Assigned Patient Location: [facility] Current Patient Location: [facility] Accession/Order Number: [id number] Exam Date: 01/31/2025 11:05 Report Date: 01/31/2025 11:08 At the request of: YOGESH CANALES DO Procedure: US OB BPP w non-stress BIOPHYSICAL PROFILE: CLINICAL INFORMATION: Oligohydramnios COMPARISON: 01/25/2025 There is a single live intrauterine gestation in cephalic presentation. The reported gestational age is 35 weeks 4 days. The heart rate diufzgtp093 beats per minute. FINDINGS: TONE: 1 or [...] BORDERLINE LOW JEROD . Impression dictated by: Aprana Nascimento M.D. 01/31/2025 11:08 AM Dictation Location: [place] [address] Electronically authenticated by: [id number] Y Date: 01/31/2025 11:08 Dictated By: Aparna Nascimento M.D. Signed By: 01/31/25 1111 DD/ 1108 TD/TT: Device Test Engineer: Procedure Note Radiology, Radiologist, - 01/31/2025 [place] [address] Ultrasound Report Signed Patient: FRANCES DOE RMR#: [id number] : 2005Acct:[id number] Age/Sex: 19 / FADM Date: 01/31/25 Loc: [facility] 254-[address]: Yogesh Canales D.O. Ordering Physician: Yogesh Canales D.O. Date of Service: 01/31/25 Procedure(s): US OB BPP w non-stress Accession Number(s): [id number] cc: Yogesh Canales D.O.; HAZEL GRADY [place] [address] Patient Name: FRANCES DOE MRN: [facility]:[id number] date: 2005 Sex: F Assigned Patient Location: [facility] Current Patient Location: [facility] Accession/Order Number: [id number] Exam Date: 01/31/2025 11:05 Report Date: 01/31/2025 11:08 At the request of: YOGESH CANALES DO Procedure: US OB BPP w non-stress BIOPHYSICAL PROFILE: CLINICAL INFORMATION: Oligohydramnios COMPARISON: 01/25/2025 There is a single live intrauterine gestation in cephalic presentation.The reported gestational age is 35 weeks 4 days. The heart ynokezbwbqti414 beats per minute. FINDINGS: TONE: 1 or [...] Nascimento M.D. 01/31/2025 11:08 AM Dictation Location: [place] [address] Electronically authenticated by: [id number] Y Date: 1:08 Dictated By: Aparna Nascimento M.D. Signed By:01/31/25 1111 DD/ 1108 TD/TT: Device Test Engineer: us Yogesh Herrerao DO [facility]IN[facility]NC IMAGING Final Result documented in this encounter Visit Diagnoses Not on filedocumented in this encounter Care Teams Casting Coordinator Relationship Specialty Start Date End Date Hazel Grady MD [address] [place] [address] PCP - General Family Medicine 07/18/24 documented as of this encounter
--- OUTSIDE RECORDS SUMMARY | 2025-02-01 18:00 | XMS_ITS | Encounter Summary ---
Author Organization [facility] Address [address] [place] [address] Care Team Providers Care Warp Scouring Vat Tender Name Role Phone Hazel Grady MD Primary Care Provider [phone] Encounter Details Date Type Department Care Team (Late st Contact Info) Description 07/19/2024 Clinisync Result Encounter [facility] External Department Unsolicited Yogesh Canales DO [address] [place] [address] Jess Flynn, [facility]11 Social History Tobacco Use Types Packs/Day Years [...] Info) Description 02/04/[address] [facility] OB [facility] [place] [address] Yogesh Canales DO [address] [place], [place] [address] 02/12/2025 1:50 PM EDT Office Visit [facility] OB [facility] [place] [address] Maryanne Whiteside PA [address] [place], [place] [address] documented as of this encounter Procedures Procedure Name Priority Date/Time Associated Diagnosis Comments US OB TRANSVAGINAL 07/19/2024 4: 28 AM EST documented in this encounter Results * US OB TRANSVAGINAL (07/19/2024 4:28 AM EST) Anatomical Region Laterality Modality Other 07/19/2024 4:28 AM EST Narrative 07/19/2024 4:31 [place] [address] Ultrasound Report Signed Patient: FRANCES DOE MR#: [id number] : 2005 Acct:[id number] Age/Sex: 18 / F ADM Date: 07/18/24 Loc: [facility] Attending Dr: Yogesh Canales D.O. Ordering Physician: Yogesh Canales D.O. Date of Service: 07/18/24 Procedure(s): US OB transvaginal Accession Number(s): [id number] cc: Yogesh Canales D.O.; HAZEL GRADY [address] [address] Patient Name: FRANCES DOE MRN: [id number] date: 2005 Sex: F Assigned Patient Location: [facility] Current Patient Location: Accession/Order Number: [id number] Exam Date: 07/18/2024 10:06 Report Date: 07/19/2024 [...] Dictated By: Salbador Sofia M.D. Signed By: 07/19/241 DD/ 7 TD/TT: Director Customer: Procedure Note Radiology, Radiologist, MD - 07/19/2024 [place] [address] Ultrasound Report Signed Patient: FRANCES DOE RMR#: [id number] : 2005Acct:[id number] Age/Sex: 18 FADM Date: 07/18/24 Loc: [facility] Attending Dr: Yogesh Canales D.O. Ordering Physician: Yogesh Canales D.O. Date of Service: 07/18/24 Procedure(s): US OB transvaginal Accession Number(s): [id number] cc: Yogesh Canales D.O.; HAZEL GRADY [place] [address] Patient Name: FRANCES DOE MRN: [id number] date: 2005 Sex: F Assigned Patient Location: [facility] Current Patient Location: Accession/Order Number: [id number] Exam Date: 07/18/2024 10:06 Report Date: 07/19/2024 [...] M.D. Signed By:07/19/24 0431 DD/ 0428 TD/TT: Director Customer: us Yogesh Ally DO [facility] IMAGING Final Result documented in this encounter Visit Diagnoses Not on filedocumented in this encounter Care Teams Warp Scouring Vat Tender Relationship Specialty Start Date End Date Hazel Grady MD [address] [place] [address] PCP - General Family Medicine 07/18/24 documented as of this encounter
--- OUTSIDE RECORDS SUMMARY | 2025-02-01 18:00 | XMS_ITS | Encounter Summary ---
Author Organization [facility] Address [address] [place] [address] Care Team Providers Care Anesthesiologist Name Role Phone David Awan MD Primary Care Provider [phone] Encounter Details Date Type Department Care Team (Late st Contact Info) Description 02/01/2025 Clinisync Result Encounter [facility]S External Department Unsolicited Cb Canales DO [address] [place] [address] Jess Flynn, [facility]11 Social History Tobacco Use Types Packs/Day Years [...] st Contact Info) Description 02/04/2025 Abstract [facility] OB [facility] [place] [address] Cb Canales DO [address] [place], [place] [address] 02/12/2025 1:50 PM EDT Office Visit [facility] OB [facility] [place] [address] Maryanne Whiteside PA [address] [place], [place] [address] documented as of this encounter Procedures Procedure Name Priority Date/Time Associated Diagnosis Comments TBH TOTAL PROTEIN 24 HOUR URINE Routine 02/01/2025 11:30 AM EDT documented in this encounter Results * (ABNORMAL) TBH TOTAL PROTEIN 24 HOUR URINE (02/01/2025 11:30 AM EDT) TOTAL PROTEIN URINE RANDOM 12.1(H) <=11.9 mg/dL TBH TOTAL VOLUME 24 HOUR URINE 1,300 mL/24hr TBH TBH TOTAL PROTEIN 24 HOUR URINE 157.3(H) <=149.1 mg/24hr TBH 02/01/2025 11:3 0 AM EDT 02/01/2025 11:45 AM EDT Narrative CLINISYNC - 02/01/2025 2:03 PM EDT us Cb Ally DO CLINISYNC Final Result CLIN[facility]NC [facility] documented in this encounter Visit Diagnoses Not on filedocumented in this encounter Care Teams Anesthesiologist Relationship Specialty Start Date End Date David Awan MD [address] [place] [address] PCP - General Family Medicine 07/18/24 documented as of this encounter
--- OUTSIDE RECORDS SUMMARY | 2025-02-01 18:00 | XMS_ITS | Encounter Summary ---
Author Organization [facility] Address [address] [place] [address] Care Team Providers Care Auto Mechanics Instructor Name Role Phone David Awan MD Primary Care Provider [phone] Encounter Details Date Type Department Care Team (Late st Contact Info) Description 08/08/2024 Abstract [facility] OB [address] [place] [address] [place] [address] [address] Pepper Flynn, [facility]11 Social History Tobacco Use Types [...] st Contact Info) Description 02/04/2025 Abstract [facility] OB [address] [place] [address] Cb Canales DO [facility] [place] [address] 02/12/2025 1:50 PM EDT Office Visit [facility] OB [facility] [place] [address] Maryanne Whiteside PA [address] [place], [place] [address] documented as of this encounter Visit Diagnoses Not on filedocumented in this encounter Care Teams Auto Mechanics Instructor Relationship Specialty Start Date End Date David Awan MD [address] [place] [address] PCP - General Family Medicine 07/18/24 documented as of this encounter
--- OUTSIDE RECORDS SUMMARY | 2025-02-01 18:00 | XMS_ITS | Clinical Summary ---
Author Organization [facility] tem Address [id number] [address] [place] [address] Care Team Providers Care Natural Gas Engineer Name Role Phone Unavailable Primary Care [...] Description 01/04/2025 Orders Only Maternal- Medicine at [facility] [address] [place] [address] Ref Prov, Not In System 01/04/2025 Abstract Maternal- Medicine at [facility] [address] [place] [address] Mike Lay MD from Last 3 Months [...] 9:32 AM EDT) Anatomical Region Laterality Modality OB-TAX ADJUSTER Ultrasound 01/18/2025 8:21 AM EDT Narrative 01/18/2025 10:30 AM EDT NAME: BROOK CHOI : 2005 SEX: F Accession Number: [id number] ORDERING PHYSICIAN: CB CANALES REFERRING PHYSICIAN: CB CANALES Coding ----- --------- Procedures 58675: Ultrasound, uterus, real time with image documentation, [...] EFW (oz) 14 oz EFW by: Hadlock ([id number]) Extended Tibia 56.1 mm 32w 6d 45% Tj Drying Tunnel Operator 2.0 mm Head / Face / [...] Heart / Thorax RVOT view. LVOT view. 9-qqnmvp-bxqnsym view. Aortic arch view. Bicaval view. Ductal [...] CHOI : 2005 SEX: F Accession Number: [id number] ORDERING PHYSICIAN: BC CANALES REFERRING PHYSICIAN: CB CANALES Coding ----- --------- Procedures 61769: Ultrasound, uterus, real time with imagedocumentation, and [...] EFW (oz) 14 oz EFW by: Hadlock ([id number]-FL) Extended Tibia 56.1 mm 32w 6d 45% Tj Drying Tunnel Operator 2.0 mm Head / Face / [...] Heart / Thorax RVOT view. LVOT view. 1-gusbtl-xsdapze view. Aortic archview. Bicaval view. Ductal arch [...] period is included. Anatomical Region Laterality Modality OB-TAX ADJUSTER Ultrasound us Not In System Ref Prov [...] Last 3 Months Insurance [facility]
--- OUTSIDE RECORDS SUMMARY | 2025-02-01 18:00 | XMS_ITS | Encounter Summary ---
Author Organization [facility] tem Address [id number] [address] [place] [address] Care Team Providers Care Bioinformatics Specialist Name Role Phone Unavailable Primary Care Provider Unavailabl e Encounter Details Date Type Department Care Team (Late st Contact Info) Description 01/04/2025 Abstract Maternal- Medicine at [facility] [address] [place] [phone] Mike Lay MD [address] [facility] [address] [place] [address] Social History Tobacco Use Types Packs/Day Years [...] ORDERABLES Jessica l Result Performing Organization Address City/[facility] Co de Phone Number MANUALLY TRANSCRIBED RESULTS * Rubella IGG immune status (08/05/2024) Rubella immune IgG immune MANUALLY TRANSCRIBED RESULTS Blood Venous blood / Unknown us Not In System Ref Prov LAB BLOOD ORDERABLES Jessica l Result Performing Organization Address City/[facility] Co de Phone Number MANUALLY TRANSCRIBED RESULTS * Syphilis Total (Unknown Syphilis Status) (08/05/2024) Syphilis non reactive MANUALL Y TRANSCRIBED RESULTS Blood Venous blood / Unknown us Not In System Ref Prov LAB BLOOD ORDERABLES Jessica l Result MANUALLY TRANSCRIBED RESULTS documented in this encounter Visit Diagnoses Not on filedocumented in this encounter
--- OUTSIDE RECORDS SUMMARY | 2025-02-01 18:00 | XMS_ITS | Encounter Summary ---
Author Organization [facility] Address [address] [place] [address] Care Team Providers Care Pastry Mixer Name Role Phone David Awan MD Primary Care Provider [phone] Encounter Details Date Type Department Care Team (Late st Contact Info) Description 01/31/2025 Abstract [facility] OB [address] [place] [address] [place] [address] [address] Pepper Flynn, [facility]11 Social History Tobacco Use Types Packs/Day [...] st Contact Info) Description 02/04/2025 Abstract [facility] OB [address] [place] [address] Cb Canales DO [facility] [place] [address] 02/12/2025 1:50 PM EDT Office Visit [facility] OB [facility] [place] [address] Maryanne Whiteside PA [address] [place], [place] [address] documented as of this encounter Visit Diagnoses Not on filedocumented in this encounter Care Teams Pastry Mixer Relationship Specialty Start Date End Date David Awan MD [address] [place] [address] PCP - General Family Medicine 07/18/24 documented as of this encounter
--- OUTSIDE RECORDS SUMMARY | 2025-02-01 18:00 | XMS_ITS | Encounter Summary ---
Author Organization [facility] Address [address] [place] [address] Care Team Providers Care Appliance Worker Name Role Phone David Awan MD Primary Care Provider [phone] Encounter Details Date Type Department Care Team (Late st Contact Info) Description 01/18/2025 Abstract [facility] [address] [place] [address] Zita Jade MA Social History Tobacco [...] (Late st Contact Info) Description 02/04/2025 Abstract [facility] [address] [place] [address] Cb Canales DO [address] [place] [address] Dr Pepper [place], [facility]11 02/12/2025 1:50 PM EDT Office Visit [facility] [address] [place] [address] Maryanne Whiteside PA [address] [place] [address] documented as of this encounter Visit Diagnoses Not on filedocumented in this encounter Care Teams Appliance Worker Relationship Specialty Start Date End Date David Awan MD [address] [place] [address] PCP - General Family Medicine 07/18/24 documented as of this encounter
== END 2025-02-01 17:58 | disposition home or self-care (01) ==
LOC: LAB 17:57
PROVIDERS: PCP Family Medicine; Visit Provider Physician Assistant
DX: Z34.93 Encounter for supervision of normal pregnancy, unspecified, third trimester (principal)
CPT/HCPCS: 87081

== ENCOUNTER 2025-02-03 10:07 | Outpatient (OUT) | payer OTHER, SELFPAY ==
--- OUTSIDE RECORDS SUMMARY | 2016-05-22 10:00 | XMS_ITS | Continuity of Care Document ---
Author Organization [employer] [facility] Address [address] [facility] [place] [address] Phone Care Team Providers Care Preflight Inspector Name Role Phone Floyd WANG, Selvin Unavailable [...] Diagnoses Date Provider Providers Copied on Encounter [employer] [facility], [address] [facility] [address], [place], [place], [address], [place] tel:[phone] [facility] vaccine adm. (chief complaint) No Information 6 Floyd Montalvo. [address] [address], [place], [place], [address], [place]. tel:[phone] Referring Provider: Selvin Bell, [address] [address], [place], [address] . tel:[phone] [facility], [address] [place] [address] [address], [place], [place], [address], [place] tel:[phone] [facility] No Information 6 No Information [facility], [address] [place] [address] [address], [place], [place], [address], [place] tel:[phone] [facility] No Information 5 Floyd Montalvo. [address] [address], [place], [place], [address], [place]. tel:[phone] PREV VISIT, NEW, AGE 5-11 [facility], [address] [place] [address] [address], [place], [place], [address], [place] tel:[phone] [facility] Well child (chief complaint) Encntr for routine child health exam w/o abnormal findings 5 Ahmet Snyder. [address], [address], [place]. tel:[phone] Referring Provider: Lillian Leo MD, [address], [address]. tel:[phone] Family History Family Member Type Diagnosis Age [...] Covered republican ID Authoriza tion(s) Medicaid MC [id number] Medicaid [place] [id number] Medicaid MC [id number] [facility] [id number] Social History Type Description Quantity Date [...]
--- OUTSIDE RECORDS SUMMARY | 2023-08-23 10:15 | XMS_ITS ---
Author Organization [facility] Address [address] [place] [address] Care Team Providers Care Bearing Maker Name Role Phone Amanda Wilson Primary Care Provider REASON FOR VISIT NEW PT REFERRAL FROM [facility] Encounters Encounter Location Date Provider Diagnosis [facility] [address] [place] [address] 08/23/2023 Amanda Wilson Plan Of Treatment No Information Progress Notes * YUMIKO DOEEDOB: [birth year] (19 yo F)Acc No.[id number]:08/23/2023 Consult - Patient Patient: JIMBO PICHARDO Provider: JOSEPH Dumont :2005 A ge:17 Y S ex:Female Date:08/23/2023 Address:[address], [place], [id number] Subjective: * Chief Complaints: * 1 . NEW PT REFERRAL FROM [facility]. Objective: Therapeutic Interventions: Assessment: Plan: * Images: Care Plan Details* * Electronic signature of JOSEPH Sheikh on 02/03/2025 at 10:11 AM EDT Sign off status: Pending * Provider: JOSEPH Dumont Date: 08/23/2023 Generated for Jessyi ng/Faxing/eTransmitting on: 0 02/03/2025 10:11 AM EDT
--- OUTSIDE RECORDS SUMMARY | 2025-01-25 08:40 | XMS_ITS | Encounter Summary ---
Author Organization [facility] Address [address] [place] [address] Care Team Providers Care Water Main Installer Helper Name Role Phone David Awan MD Primary Care Provider [phone] Reason for Visit * Reason Comments Routine Visit Encounter Details Date Type Department Care Team (Late st Contact Info) Description 01/25/2025 8:40 AM EDT Routine [facility] OB [address] [place] [phone] Cb Canales, DO [address] [address] Third trimester ([facility]); 34 weeks gestation of ([facility]) Social History Tobacco Use Types Packs/Day Years [...] Sign Reading Time Taken Comments Blood Pressure 128/80 01/25/2025 9:18 AM EDT Pulse - - Temperature - - Respiratory Rate - - Oxygen Saturation - - Inhaled Oxygen Concentration - - Weight 144 kg (317 lb) 01/25/2025 9:18 AM EDT Height - - Body Mass Index - - documented in this encounter Progress Notes * JANETH Ji - 01/25/2025 8:40 AM EDT Reason for Appointment: Patient ID: [...] weight on file to calculate BMI. BP: 128/80 Patient's last menstrual period was 05/09/2024. ASSESSMENT & PLAN ICD-10-CM 1. Third trimester ([facility]) Z34.93 POCT urinalysis dipstick manually resulted 2. 34 weeks gestation of ([facility]) Z3A.34 Return OB: Patient presents today for a routine obstetrics appointment. Patient is currently 34w5d . Patient states she is doing well but has complaints of being tired due to current . Patient has verbalizes frequent movement. labor precautions was discussed/given and patient was instructed to perform kick counts three times a day. Orders Placed This Encounter Procedures POCT urinalysis dipstick manually resulted Follow Up: Patient is to return to office in 1 week for routine OB appointment. Documented by JANETH Ji on behalf of: Cb Canales DO documented in this encounter Plan of Treatment Upcoming Encounters Date Type Department Care Team (Late st Contact Info) Description 02/04/2025 Abstract [facility] OB [address] [place] [phone] Cb Canales DO [address] [place] [address] 02/12/2025 1:50 PM EDT Office Visit [facility] OB [address] [address] Maryanne Whiteside PA [address] [place] [address] documented as of this encounter Procedures Procedure Name Priority Date/Time Associated Diagnosis Comments POCT URINALYSIS DIPSTICK Routine 01/25/2025 9:22 AM EDT Third trimester ([facility]) documented in this encounter Results * POCT urinalysis dipstick manually resulted (01/25/2025 9:22 AM EDT) Color, UA Yellow Clarity, UA Clear Glucose, UA Negative Negative - 2000(110) ++++ mg/dL Bilirubin, UA Negative Negative - 4(70) +++ mg/dL Ketones, UA Negative Negative - 160(16) ++++ mg/dL Spec Grav, UA 1.015 1 - 1.03 Blood, UA Negative Negative - 50 Sam/mcL pH, UA 7.0 5 - 9 Protein, UA Trace Negative - 2000(20) ++++ mg/dL Urobilinogen, UA 0.2 0.2 - 12 mg/dL Leukocytes, UA Moderate Negative - 500+++ Supa/mcL Nitrite, UA Negative Negative - Positive Urine 01/25/2025 9:22 AM EDT Cb Canales DO POINT OF CARE TEST ENTER/EDIT OR DERABLES Final Result documented in this encounter Visit Diagnoses Diagnosis Third trimester ([facility]) state, incidental 34 weeks gestation of ([facility]) documented in this encounter Care Teams Water Main Installer Helper Relationship Specialty Start Date End Date David Awan MD [address] [place] [address] PCP - General Family Medicine 07/18/24 documented as of this encounter
--- OUTSIDE RECORDS SUMMARY | 2025-02-01 08:50 | XMS_ITS | Encounter Summary ---
Author Organization [facility] Address [address] [place] [address] Care Team Providers Care Global Account Manager Name Role Phone David Awan MD Primary Care Provider [phone] Reason for Visit * Reason Comments Routine Visit Encounter Details Date Type Department Care Team (Late st Contact Info) Description 02/01/2025 8:50 AM EDT Routine [facility] OB [address] [place] [address] Maryanne Whiteside PA [address] [place], [place] [address] 35 weeks gestation of ([facility]); Third trimester ([facility]); Pruritus; Oligohydramnios in third trimester, fetus 1 of multiple gestation ([facility]); SGA (small for gestational age) ([facility]); headache in third trimester ([facility]) Social History Tobacco Use Types Packs/Day Years [...] this encounter Progress Notes * Madeline Toribio, NERVE SPECIALIST - 02/01/2025 8:50 AM EDT Reason for [...] nursing note reviewed. Exam conducted with a computer training specialist present. Vitals: There is no height [...] st Contact Info) Description 02/04/2025 Abstract [facility] OB [address] [facility] [place] [address] Cb Canales DO [address] [address] 02/12/2025 1:50 PM EDT Office Visit [facility] OB [address] [place] [phone] Maryanne Whiteside PA [address] [place], [place] [phone] Scheduled Orders Name Type Priority Associated Diagnoses Orde r Schedule CULTURE, GROUP B STREP WITH SUSCEPTIBLITY Lab Routine Third trimester ([facility]) Expected: 02/01/2025, Expires: 02/01/2026 documented as of this encounter Procedures Procedure Name Priority Date/Time Associated Diagnosis Comments POCT URINALYSIS DIPSTICK Routine 02/01/2025 9:19 AM EDT 35 weeks gestation of ([facility]) Third trimester ([facility]) Pruritus Oligohydramnios in third trimester, fetus 1 of multiple gestation ([facility]) documented in this encounter Results * (ABNORMAL) [...] Visit Diagnoses Diagnosis 35 weeks gestation of ([facility]) Third trimester ([facility]) state, incidental Pruritus Unspecified pruritic disorder Oligohydramnios in third trimester, fetus 1 of multiple gestation ([facility]) SGA (small for gestational age) ([facility]) Qwmip-ire-[id number] without mention of malnutrition, unspecified (weight) headache in third trimester ([facility]) documented in this encounter Care Teams Global Account Manager Relationship Specialty Start Date End Date David Awan MD [address] [place] [address] PCP - General Family Medicine 07/18/24 documented as of this encounter
--- OUTSIDE RECORDS SUMMARY | 2025-02-03 10:09 | XMS_ITS | CCD ---
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 Name Role Phone Almaz Huerta Unavailable HAZEL GRADY Primary Care Unavailable CHRISTIANO TATUM Attending Unavailable CHRISTIANO TATUM Consulting Unavailable CHRISTIANO TATUM Admitting Unavailable Sheree Cheung Unavailable Dom Sarmiento Attending Unavailable Tiesha Flood Unavailable Unavailable Primary Care Provider UnavailHazel Young MD Primary Care Provider Sheree Cheung Primary Care Unavailable AllyConyy Attending Unavailable Ally, Yogesh Admitting Unavailable ALLY, YOGESH R Referring Unavailable MARCI, MARYANNE Attending Unavailable MARCI, MARYANNE Attending Unavailable ALLY, YOGESH Attending Unavailable LYNETTE GUNTER Attending Unavailable ALYL, YOGESH Attending Unavailable ALLY, YOGESH Attending Unavailable MARCI, MARYANNE Attending Unavailable ALLY, YOGESH Attending Unavailable MARCI, MARYANNE Attending Unavailable Allergies Allergy Classification Reported Allergen(s) Allergy Type Date of Onset Reaction(s) Facility (20 sources) Amoxicillin; Translations: [amoxicillin] Drug Allergy 4 swelling, Rash [facility] Repository (1 source) Amoxicillin Drug Allergy 6 [facility] Repository (1 source) Amoxicillin Drug Allergy 4 [facility] Repository Medications Current Medications Medication Drug Class(es) [...] not applicable] 07-18-2024 Episodic Other complications of (4 sources) Headache; Translations: [Other specified related conditions, unspecified trimester] 08-17-2024 Episodic Other complications of (2 sources) size does not accord with dates; Translations: [Uterine size-date discrepancy, unspecified trimester] 12-06-2024 Episodic Other female genital disorders (2 sources) Vaginal discharge; Translations: [Other specified noninflammatory disorders of vagina] 09-21-2024 Episodic Other inflammatory condition of skin (4 sources) Pruritus, unspecified; Translations: [Unspecified pruritic disorder] 01-11-2025 Episodic Other and delivery including normal (20 sources) ; Translations: [Encounter for supervision of [...] Polyhydramnios and other problems of amniotic cavity (4 sources) Oligohydramnios; Translations: [Oligohydramnios, third trimester, fetus [...] [34 weeks gestation of ] 01-25-2025 Episodic Residual codes; unclassified (2 sources) Gestation period, 35 weeks; Translations: [35 weeks gestation of ] 02-01-2025 Episodic Short gestation; low weight; and growth retardation (2 sources) Obhqf-aaj-kitap baby; Translations: [[place] small for gestational age, unspecified weight] 02-01-2025 Episodic Past or Other Problems Problem Classification Problem Date Documented Da te Episodic/Chronic Administrative/social admission (1 source) Encounter for pre-employment examination Onset: 01-21-2022 Resolved: 01-21-2022 Episodic Results Test Name Value Interpretation Reference Range Facility [facility] TOTAL PROTEIN 24 HOUR UR INEon 02-01-2025 Interpretation and review of laboratory results [facility] (U) [Mass/Vol] 12.1 mg/dL High [facility] - 11.9 mg/dL [facility] TOTAL PROTEIN 24 HOUR URINE 157.3 High [facility] TOTAL VOLUME 24 HOUR URINE 1300 mL/24hr [facility]inal[facility] macro (dipstick) panel (U)on 02-01-2025 Bilirubin, UA Negative Negative - 4(70) +++ mg/dL [facility] Blood, UA Negative Negative - 50 Sam/mcL [facility] Clarity, UA Clear [facility] Color, UA Yellow [facility] Glucose, UA Negative Negative - 1999(110) ++++ mg/dL [facility] Interpretation and review of laboratory results Abnormal [facility] Ketones, UA Negative Negative - 160(16) ++++ mg/dL [facility] Leukocytes, UA Trace Negative - 500+++ Supa/mcL [facility] Nitrite, UA Negative Negative - Positive [facility] pH, UA 7 5 - 9 [facility] Protein, UA Negative Negative - 1999(20) ++++ mg/dL [facility] Spec Grav, UA 1.02 1 - 1.03 [facility] Urobilinogen, UA 0.2 0.2 - 12 mg/dL [facility] BPP W NON-STRESS on 01-31-2025 [place] [address] Ultrasound Report Signed Patient: FRANCES DOE MR#: [id number] : 2005 Acct:[id number] Age/Sex: 19 / F ADM Date: 01/31/25 Loc: [facility] 254-[address]: Yogesh Canales D.O. Ordering Physician: Yogesh Canales D.O. Date of Service: 01/31/25 Procedure(s): US OB BPP w non-stress Accession Number(s): [id number] cc: Yogesh Canales D.O.; HAZEL GRADY [place] [address] Patient Name: FRANCES DOE MRN: [facility]:[id number] date: 2005 Sex: F Assigned Patient Location: [facility] Current Patient Location: [facility] Accession/Order Number: [id number] Exam Date: 01/31/2025 11:05 Report Date: 01/31/2025 11:08 At the request of: YOGESH CANALES DO Procedure: US OB BPP w non-stress BIOPHYSICAL PROFILE: CLINICAL INFORMATION: Oligohydramnios COMPARISON: 01/25/2025 There is a single live intrauterine gestation in cephalic presentation. The reported gestational age is 35 weeks 4 days. The heart rate jfawvjml442 beats per minute. FINDINGS: TONE: 1 or [...] Nascimento M.D. 01/31/2025 11:08 AM Dictation Location: [place] [address] Electronically authenticated by: [id number] Y Date: 01/31/2025 11:08 Dictated By: Aparna Nascimento M.D. Signed By: 01/31/25 1111 DD/ 1108 TD/TT: Paid Search Analyst: [facility] Radiology, Radiologist, - 01/31/2025 [place] [address] Ultrasound Report Signed Patient: FRANCES DOE MR#: [id number] : 2005 Acct:[id number] Age/Sex: 19 / F ADM Date: 01/31/25 Loc: [facility] 254-[address]: Yogesh Canales D.O. Ordering Physician: Yogesh Canales D.O. Date of Service: 01/31/25 Procedure(s): US OB BPP w non-stress Accession Number(s): [id number] cc: Yogesh Canales D.O.; HAZEL GRADY The [place] [id number] Patient Name: FRANCES DOE MRN: [facility]:[id number] date: 2005 Sex: F Assigned Patient Location: [facility] Current Patient Location: [facility] Accession/Order Number: [id number] Exam Date: 01/31/2025 11:05 Report Date: 01/31/2025 11:08 At the request of: YOGESH CANALES DO Procedure: US OB BPP w non-stress BIOPHYSICAL PROFILE: CLINICAL INFORMATION: Oligohydramnios COMPARISON: 01/25/2025 There is a single live intrauterine gestation in cephalic presentation. The reported gestational age is 35 weeks 4 days. The heart rate hccymztx347 beats per minute. FINDINGS: TONE: 1 or [...] Nascimento M.D. 01/31/2025 11:08 AM Dictation Location: [place] [address] Electronically authenticated by: [id number] Y Date: 01/31/2025 11:08 Dictated By: Aparna Nascimento M.D. Signed By: 01/31/25 1111 DD/ 1108 TD/TT: Paid Search Analyst: [facility] [employer] Radiology Study observation (narrative) [facility] US OB BPP W NON-STRESS Ordered By: Radiologist Radiology on 01-31-2025 [facility] [email or web address] Work Phone: US OB BPP W NON-STRESS on 01-25-[address] [address] Ultrasound Report Signed Patient: FRANCES DOE MR#: [id number] : 2005 Acct:[id number] Age/Sex: 19 / F ADM Date: 01/25/25 Loc: [facility] Attending Dr: Yogesh Canales D.O. Ordering Physician: Yogesh Canales D.O. Date of Service: 01/25/25 Procedure(s): US OB BPP w non-stress Accession Number(s): [id number] cc: Yogesh Canales D.O.; HAZEL GRADY The [place] [id number] Patient Name: FRANCES DOE MRN: [facility]:[id number] date: 2005 Sex: F [place] [facility] [place] Patient Location: Accession/Order Number: [id number] Exam Date: 01/25/2025 14:59 Report Date: 01/25/2025 15:01 At the request of: YOGESH CANALES DO Procedure: US OB BPP w non-stress Biophysical profile. Reason for exam: Oligohydramnios. COMPARISON: BPP 01/24/2025. TECHNIQUE: Transabdominal imaging of the gravid uterus was obtained. FINDINGS: Profile Trimmer reports a BPP of 8 out of 8. JEROD is normal 11.4 cm. heart rate 159 bpm. US/US OB BPP w non-stress Impression: BPP 8 out of 8. Impression dictated by: Stanislav Francisco Jr., D.O. 01/25/2025 3:01 PM Dictation Location: [place] [address] Electronically authenticated by: [id number] Y Date: 01/25/2025 15:01 Dictated By: Stanislav Francisco M.D. Signed By: 01/25/25 1504 DD/ 1501 TD/TT: Paid Search Analyst: [facility] Radiology, Radiologist, MD - 01/25/2025 [place] [address] Ultrasound Report Signed Patient: FRANCES DOE MR#: [id number] : 2005 Acct:[id number] Age/Sex: 19 / F ADM Date: 01/25/25 Loc: [facility] Attending : Yogesh Canales D.O. Ordering Physician: Yogesh Canales D.O. Date of Service: 01/25/25 Procedure(s): US OB BPP w non-stress Accession Number(s): [id number] cc: Yogesh Canales D.O.; HAZEL GRADY [place] [id number] Patient Name: FRANCES DOE MRN: [facility]:[id number] date: 2005 Sex: F [place] [facility] [place] Patient Location: Accession/Order Number: [id number] Exam Date: 01/25/2025 14:59 Report Date: 01/25/2025 15:01 At the request of: YOGESH CANALES DO Procedure: US OB BPP w non-stress Biophysical profile. Reason for exam: Oligohydramnios. COMPARISON: BPP 01/24/2025. TECHNIQUE: Transabdominal imaging of the gravid uterus was obtained. FINDINGS: Profile Trimmer reports a BPP of 8 out of 8. JEROD is normal 11.4 cm. heart rate 159 bpm. US/US OB BPP w non-stress Impression: BPP 8 out of 8. Impression dictated by: Stanislav Francisco Jr., D.O. 01/25/2025 3:01 PM Dictation Location: [place] [address] Electronically authenticated by: [id number] Y Date: 01/25/2025 15:01 Dictated By: Stanislav Francisco M.D. Signed By: 01/25/25 1504 DD/ 1501 TD/TT: Paid Search Analyst: [facility] [employer] Radiology Study observation (narrative) [facility] US OB BPP W NON-STRESS Ordered By: Radiologist Radiology on 01-25-2025 [facility] [email or web address] [employer] Work Phone: Urinalysis macro (dipstick) panel (U)on 01-25-2025 Bilirubin, UA Negative Negative - 4(70) +++ mg/dL [facility] Blood, UA Negative Negative - 50 Sam/mcL [facility] Clarity, UA Clear [facility] Color, UA Yellow [facility] Glucose, UA Negative Negative - 1999(110) ++++ mg/dL [facility] Interpretation and review of laboratory results Normal [facility] Ketones, UA Negative Negative - 160(16) ++++ mg/dL [facility] Leukocytes, UA Moderate Negative - 500+++ Supa/mcL [facility] Nitrite, UA Negative Negative - Positive [facility] pH, UA 7 5 - 9 [facility] Protein, UA Trace Negative - 1999(20) ++++ mg/dL [facility] Spec Grav, UA 1.015 1 - 1.03 [facility] Urobilinogen, UA 0.2 0.2 - 12 mg/dL [facility] US OB BPP W NON-STRESS on 01-24-2025 [place] [address] Ultrasound Report Signed Patient: FRANCES DOE MR#: [id number] : 2005 Acct:[id number] Age/Sex: 19 / F ADM Date: 01/24/25 Loc: [facility] 250- Attending Dr: Yogesh Canales D.O. Ordering Physician: Yogesh Canales D.O. Date of Service: 01/24/25 Procedure(s): US OB BPP w non-stress Accession Number(s): [id number] cc: Yogesh Canales D.O.; HAZEL GRADY [place] [address] Patient Name: FRANCES DOE MRN: [facility]:[id number] date: 2005 Sex: F Assigned Patient Location: [facility] Current Patient Location: [facility] Accession/Order Number: [id number] Exam Date: 01/24/2025 10:33 Report Date: 01/24/2025 [...] Nascimento M.D. 01/24/2025 10:38 AM Dictation Location: [place] [address] Electronically authenticated by: [id number] Y Date: 01/24/2025 10:38 Dictated By: Aparna Nascimento M.D. Signed By: 01/24/25 1041 DD/ 1038 TD/TT: Paid Search Analyst: [facility] Radiology, Radiologist, - 01/24/2025 [place] [address] Ultrasound Report Signed Patient: FRANCES DOE MR#: [id number] : 2005 Acct:[id number] Age/Sex: 19 / F ADM Date: 01/24/25 Loc: [facility] 250-[address]: Yogesh Canales D.O. Ordering Physician: Yogesh Canales D.O. Date of Service: 01/24/25 Procedure(s): US OB BPP w non-stress Accession Number(s): [id number] cc: Yogesh Canales D.O.; HAZEL GRADY The [address] [address] Patient Name: FRANCES DOE MRN: [facility]:[id number] date: 2005 Sex: F Assigned Patient Location: [facility] Current Patient Location: [facility] Accession/Order Number: [id number] Exam Date: 01/24/2025 10:33 Report Date: 01/24/2025 [...] Nascimento M.D. 01/24/2025 10:38 AM Dictation Location: [place] [address] Electronically authenticated by: [id number] Y Date: 01/24/2025 10:38 Dictated By: Aparna Nascimento M.D. Signed By: 01/24/25 1041 DD/ 1038 TD/TT: Paid Search Analyst: [facility] [employer] Radiology Study observation (narrative) [facility] US OB BPP W NON-STRESS Ordered By: Radiologist Radiology on 01-24-2025 [facility] [email or web address] [employer] Work Phone: US OB BPP W NON-STRESS on 01-17-2025 [place] [address] Ultrasound Report Signed Patient: FRANCES DOE MR#: [id number] : 2005 Acct:[id number] Age/Sex: 19 / F ADM Date: 01/17/25 Loc: [facility] 254-[address]: Yogesh Canales D.O. Ordering Physician: Yogesh Canales D.O. Date of Service: 01/17/25 Procedure(s): US OB BPP w non-stress Accession Number(s): [id number] cc: Yogesh Canales D.O.; HAZEL GRADY [place] [address] Patient Name: FRANCES DOE MRN: [facility]:[id number] date: 2005 Sex: F Assigned Patient Location: [facility] Current Patient Location: [facility] Accession/Order Number: [id number] Exam Date: 01/17/2025 10:50 Report Date: 01/17/2025 [...] Nascimento M.D. 01/17/2025 10:51 AM Dictation Location: [place] [address] Electronically authenticated by: [id number] Y Date: 01/17/2025 10:51 Dictated By: Aparna Nascimento M.D. Signed By: 01/17/25 1054 DD/ 1051 TD/TT: Paid Search Analyst: [facility] Radiology, Radiologist, MD [place] 01/17/2025 [place] [address] Ultrasound Report Signed Patient: FRANCES DOE MR#: [id number] : 2005 Acct:[id number] Age/Sex: 19 / F ADM Date: 01/17/25 Loc: [facility] 254-[address]: Yogesh Canales D.O. Ordering Physician: Yogesh Canales D.O. Date of Service: 01/17/25 Procedure(s): US OB BPP w non-stress Accession Number(s): [id number] cc: Yogesh Canales D.O.; HAZEL GRADY [place] [address] Patient Name: FRANCES DOE MRN: [facility]:[id number] date: 2005 Sex: F Assigned Patient Location: [facility] Current Patient Location: [facility] Accession/Order Number: [id number] Exam Date: 01/17/2025 10:50 Report Date: 01/17/2025 10:51 At the request of: YOGESH CANALES DO Procedure: US OB BPP w non-stress BIOPHYSICAL PROFILE: CLINICAL INFORMATION: oligohydramnios COMPARISON: 01/10/2025 There is a single live intrauterine gestation in cephalic presentation. The reported gestational age is 33 weeks 4 days. The heart rate [id number] beats per minute. FINDINGS: TONE: 1 or [...] Nascimento M.D. 01/17/2025 10:51 AM Dictation Location: [place] [address] Electronically authenticated by: [id number] Y Date: 01/17/2025 10:51 Dictated By: Aparna Nascimento M.D. Signed By: 01/17/25 1054 DD/ 1051 TD/TT: Paid Search Analyst: [facility] Radiology Study observation (narrative) [facility] US OB BPP W NON-STRESS Ordered By: Radiologist Radiology on 01-17-2025 [facility] Work Phone: ALL CBC WITH AUTO DIFFon BASOPHILS ABSOLUTE AUTO 0 [facility] Basophils/100 WBC (Bld) 0.1 % Low 0.2 - 2.0 % [facility] Eosinophils/100 WBC (Bld) 0.2 % Low 0.9 - 7.0 % [facility] Erythrocyte distribution width (RBC) [Ratio] 13 % 11.0 - 15.0 % [facility] Hematocrit (Bld) [Volume fraction] 31.2 % Low 36.0 - 48.0 % [facility] Hemoglobin (Bld) [Mass/Vol] 10.3 g/dL Low 12.0 - 16.0 g/dL [facility] IMMATURE GRANULOCYTES ABS AUTO 0.02 [facility] Immature granulocytes/100 WBC (Bld) 0.2 % 0.0 - 0.5 % [facility] Interpretation and review of laboratory results Abnormal [facility] LYMPHOCYTES ABSOLUTE AUTO 1.4 [facility] Lymphocytes/100 WBC (Bld) 14.2 % Low 20.5 - 60.0 % [facility] MCH (RBC) [Entitic mass] 27.2 pg 26.7 - 34.0 pg [facility] MCHC (RBC) [Mass/Vol] 33 g/dL 29.9 - 35.2 g/dL [facility] MCV (RBC) [Entitic vol] 82.3 fL 81.0 - 99.0 fL [facility] MONOCYTES ABSOLUTE [facility]O 0.6 [facility] Monocytes/100 WBC (Bld) 6.1 % 1.7 - 12.0 % [facility] NEUTROPHILS ABSOLUTE AUTO 7.7 High [facility] Neutrophils/100 WBC (Bld) 79.2 % High 43.0 [...] OB BPP W NON-STRESS on 01-10-2025 [place] [address] Ultrasound Report Signed Patient: FRANCES DOE MR#: [id number] : 2005 Acct:[id number] Age/Sex: 19 / F ADM Date: 01/10/25 Loc: [facility] 250-[address]: Yogesh Canales D.O. Ordering Physician: Yogesh Canales D.O. Date of Service: 01/10/25 Procedure(s): US OB BPP w non-stress Accession Number(s): [id number] cc: Yogesh Canales D.O.; HAZEL GRADY [place] [address] Patient Name: FRANCES DOE MRN: [facility]:[id number] date: 2005 Sex: F Assigned Patient Location: [facility] Current Patient Location: [facility] Accession/Order Number: [id number] Exam Date: 01/10/2025 10:39 Report Date: 01/10/2025 10:44 At the request of: YOGESH CANALES DO Procedure: US OB BPP w non-stress BIOPHYSICAL PROFILE: CLINICAL INFORMATION: OLIGOHYDRAMNIOS O41.09X1 COMPARISON: 01/03/2025 There is a single live intrauterine gestation in cephalic presentation. The reported gestational age is 32 weeks 4 days. The heart rate cctorsam990 beats per minute. FINDINGS: TONE: 1 or [...] Nascimento M.D. 01/10/2025 10:44 AM Dictation Location: [place] [address] Electronically authenticated by: [id number] Y Date: 01/10/2025 10:44 Dictated By: Aparna Nascimento M.D. Signed By: 01/10/25 1047 DD/ 1044 TD/TT: Paid Search Analyst: [facility] Radiology, Radiologist, MD - 01/10/2025 [place] [address] Ultrasound Report Signed Patient: FRANCES DOE MR#: [id number] : 2005 Acct:[id number] Age/Sex: 19 / F ADM Date: 01/10/25 Loc: [place] [address]: Yogesh Canales D.O. Ordering Physician: Yogesh Canales D.O. Date of Service: 01/10/25 Procedure(s): US OB BPP w non-stress Accession Number(s): [id number] cc: Yogesh Canales D.O.; HAZEL GRADY [place] [address] Patient Name: FRANCES DOE MRN: [facility]:[id number] date: 2005 Sex: F Assigned Patient Location: [facility] Current Patient Location: [facility] Accession/Order Number: [id number] Exam Date: 01/10/2025 10:39 Report Date: 01/10/2025 10:44 At the request of: YOGESH CANALES DO Procedure: US OB BPP w non-stress BIOPHYSICAL PROFILE: CLINICAL INFORMATION: OLIGOHYDRAMNIOS O41.09X1 COMPARISON: 01/03/2025 There is a single live intrauterine gestation in cephalic presentation. The reported gestational age is 32 weeks 4 days. The heart rate wldqwosd619 beats per minute. FINDINGS: TONE: 1 or [...] Nascimento M.D. 01/10/2025 10:44 AM Dictation Location: [place] [address] Electronically authenticated by: [id number] Y Date: 01/10/2025 10:44 Dictated By: Aparna Nascimento M.D. Signed By: 01/10/25 1047 DD/ 1044 TD/TT: Paid Search Analyst: [facility] Radiology Study observation (narrative) [facility] OB BPP W NON-STRESS Ordered By: Radiologist Radiology on 01-10-2025 [facility] [employer] Work Phone: AMNISUREon 01-06-2025 [facility] AMNISURE Negative NEGATIVE [facility] are [email or web address] e OB BPP W NON-STRESS on 01-03-2025 [place] [address] Ultrasound Report Signed Patient: FRANCES DOE MR#: [id number] : 2005 Acct:[id number] Age/Sex: 19 / F ADM Date: 01/03/25 Loc: [facility] 251-[address]: Yogesh Canales D.O. Ordering Physician: Yogesh Canales D.O. Date of Service: 01/03/25 Procedure(s): US OB BPP w non-stress Accession Number(s): [id number] cc: Yogesh Canales D.O.; HAZEL GRADY The [place] [id number] Patient Name: FRANCES DOE MRN: [facility]:[id number] date: 2005 Sex: F Assigned Patient Location: [facility] Current Patient Location: [facility] Accession/Order Number: [id number] Exam Date: 01/03/2025 10:37 Report Date: 01/03/2025 10:43 At the request of: YOGESH CANALES DO Procedure: US OB BPP w non-stress BIOPHYSICAL PROFILE: CLINICAL INFORMATION: Oligohydramnios O41.03x1 COMPARISON: 07/18/2024 There is a single live intrauterine gestation in cephalic presentation. The reported gestational age is 31 weeks 4 days. The heart rate lbequnou911 beats per minute. FINDINGS: TONE: 1 or [...] Nascimento M.D. 01/03/2025 10:43 AM Dictation Location: [place] [address] Electronically authenticated by: [id number] Y Date: 01/03/2025 10:43 Dictated By: Aparna Nascimento M.D. Signed By: 01/03/25 1046 DD/ 1043 TD/TT: Paid Search Analyst: [facility] Radiology, Radiologist, - 01/03/[address] [address] Ultrasound Report Signed Patient: FRANCES DOE MR#: [id number] : 2005 Acct:[id number] Age/Sex: 19 / F ADM Date: 01/03/25 Loc: [facility] 251-[address]: Yogesh Canales D.O. Ordering Physician: Yogesh Canales D.O. Date of Service: 01/03/25 Procedure(s): US OB BPP w non-stress Accession Number(s): [id number] cc: Yogesh Canales D.O.; HAZEL GRADY [place] [address] Patient Name: FRANCES DOE MRN: [facility]:[id number] date: 2005 Sex: F Assigned Patient Location: [facility] Current Patient Location: [facility] Accession/Order Number: [id number] Exam Date: 01/03/2025 10:37 Report Date: 01/03/2025 [...] Nascimento M.D. 01/03/2025 10:43 AM Dictation Location: [place] [address] Electronically authenticated by: [id number] Y Date: 01/03/2025 10:43 Dictated By: Aparna Nascimento M.D. Signed By: 01/03/25 1046 DD/ 1043 TD/TT: Paid Search Analyst: [facility] [employer] Radiology Study observation (narrative) [facility] US OB BPP W NON-STRESS Ordered By: Radiologist Radiology on 01-03-2025 [facility] [employer] Work Phone: US OB FOLLOW UP [...] II, MD, PHD at 29-Dec-2024 12:17:39 PM [facility] Normal Not Available Comment on above: Order Comment: US OB SCAN FOR GROWTH Estimated Date of Delivery: 03/03/25 Gestational Age as of 12/06/2024: 27w4d Urinalysis macro (dipstick) panel (U)on 12-28-2024 Bilirubin, UA Negative Negative - 4(70) +++ mg/dL [facility] Blood, UA Negative Negative - 50 Sam/mcL [facility] Clarity, UA Clear [facility] re Color, UA Yellow [facility] Glucose, UA Negative Negative - 1999(110) ++++ mg/dL [facility] Interpretation and review of laboratory results Abnormal [facility] re Ketones, UA Negative Negative - 160(16) ++++ mg/dL [facility] Leukocytes, UA Positive Negative - 500+++ Supa/mcL [facility] Comment on above: small Nitrite, UA Negative Negative - Positive [facility] pH, UA 7 5 - 9 [facility] e Protein, UA Positive Negative - 1999(20) ++++ mg/dL [facility] Comment on above: 30mg/dL Spec Grav, UA 1.015 1 - 1.03 [facility] Urobilinogen, UA 0.2 0.2 - 12 mg/dL [facility] ALL CBC WITH AUTO DIFFon BASOPHILS ABSOLUTE AUTO 0 [facility] Basophils/100 WBC (Bld) 0.2 % 0.2 - 2.0 % [facility] Eosinophils/100 WBC (Bld) 0.4 % Low 0.9 - 7.0 % [facility] Erythrocyte distribution width (RBC) [Ratio] 12.7 % 11.0 - 15.0 % [facility] Hematocrit (Bld) [Volume fraction] 34 % Low 36.0 - 48.0 % [facility] e Hemoglobin (Bld) [Mass/Vol] 11.5 g/dL Low 12.0 - 16.0 g/dL [facility] IMMATURE GRANULOCYTES ABS AUTO 0.06 High [facility] Immature granulocytes/100 WBC (Bld) 0.5 % 0.0 - 0.5 % [facility] Interpretation and review of laboratory results Abnormal [facility] re LYMPHOCYTES ABSOLUTE AUTO 2.5 [facility] Lymphocytes/100 WBC (Bld) 19.6 % Low 20.5 - 60.0 % [facility] MCH (RBC) [Entitic mass] 28 pg 26.7 - 34.0 pg [facility] MCHC (RBC) [Mass/Vol] 33.8 g/dL 29.9 - 35.2 g/dL [facility] MCV (RBC) [Entitic vol] 82.7 fL 81.0 - 99.0 fL [facility] MONOCYTES ABSOLUTE AUTO 0.8 [facility] Monocytes/100 WBC (Bld) 6.5 % 1.7 - 12.0 % [facility] NEUTROPHILS ABSOLUTE AUTO 9.3 High [facility] Neutrophils/100 WBC (Bld) 72.8 % 43.0 - 75.0 % [facility] Platelet mean volume (Bld) [Entitic vol] 9.5 fL 9.5 - 13.5 fL [facility] TBH EO # 0.1 [facility] PLT 306 [facility] RBC 4.11 Low [facility] WBC 12.7 High [facility] UA (CLEAN/CATCH) HOSPITALITY 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 YELLOW YELLOW [facility] GLUCOSE URINE UA Negative NEGATIVE mg/dL [facility] Interpretation and review of laboratory results Abnormal [facility] Ketones Ql (U) Negative NEGATIVE mg/dL [facility] Leukocyte esterase Test strip Ql (U) LARGE Abnormal NEGATIVE [facility] NITRITE URINE Negative NEGATIVE [facility] care pH (U) 7.0 [pH] 5.0 - 9.0 [facility] PROTEIN URINE Negative NEG/TRACE mg/dL [facility] SPECIFIC GRAVITY URINE <=1.005 Abnormal 1.005 - 1.025 [facility] URINE MICROSCOPIC INDICATED YES [facility] UROBILINOGEN URINE 0.2 EU/dL 0.2 - 1.0 EU/dL [facility] Urinalysis macro (dipstick) panel (U)on 12-06-2024 Bilirubin, UA Negative Negative - 4(70) +++ mg/dL [facility] Blood, UA Negative Negative - 50 Sam/mcL [facility] Clarity, UA Clear [facility] Color, UA Yellow [facility] Glucose, UA Negative Negative - 2000(110) ++++ mg/dL [facility] Interpretation and review of laboratory results Abnormal [facility] re Ketones, UA Positive Negative - 160(16) ++++ mg/dL [facility] Comment on above: trace Leukocytes, UA Trace Negative - 500+++ Supa/mcL [facility] Nitrite, UA Negative Negative - Positive [facility] pH, UA 5.5 5 - 9 [facility] Protein, UA Negative Negative - 1999(20) ++++ mg/dL [facility] Spec Grav, UA 1.03 1 - 1.03 [facility] Urobilinogen, UA 0.2 0.2 - 12 mg/dL [facility] ALL CBC WITH AUTO DIFFon BASOPHILS ABSOLUTE AUTO 0 [facility] Basophils/100 WBC (Bld) 0.2 % 0.2 - 2.0 % [facility] Eosinophils/100 WBC (Bld) 0.3 % Low 0.9 - 7.0 % [facility] Erythrocyte distribution width (RBC) [Ratio] 12.8 % 11.0 - 15.0 % [facility] Hematocrit (Bld) [Volume fraction] 34 % Low 36.0 - 48.0 % [facility] Hemoglobin (Bld) [Mass/Vol] 11.2 g/dL Low 12.0 - 16.0 g/dL [facility] IMMATURE GRANULOCYTES ABS AUTO 0.05 High [facility] Immature granulocytes/100 WBC (Bld) 0.4 % 0.0 - 0.5 % [facility] Interpretation and review of laboratory results Abnormal [facility] re LYMPHOCYTES ABSOLUTE AUTO 2.1 [facility] Lymphocytes/100 WBC (Bld) 17.3 % Low 20.5 - 60.0 % [facility] MCH (RBC) [Entitic mass] 27.7 pg 26.7 - 34.0 pg [facility] MCHC (RBC) [Mass/Vol] 32.9 g/dL 29.9 - 35.2 g/dL [facility] MCV (RBC) [Entitic vol] 84 fL 81.0 - 99.0 fL [facility] MONOCYTES ABSOLUTE AUTO 0.8 [facility] Monocytes/100 WBC (Bld) 6.6 % 1.7 - 12.0 % [facility] NEUTROPHILS ABSOLUTE AUTO 8.9 High [facility] Neutrophils/100 WBC (Bld) 75.2 % High 43.0 - 75.0 % [facility] Platelet mean volume (Bld) [Entitic vol] 9.1 fL Low 9.5 - 13.5 fL [facility] TBH EO # 0 [facility] [...] II, MD, PHD at 17-Nov-2024 06:24:10 AM [facility] Normal Not Available Comment on above: Order Comment: US OB INCOMPLETE ANATOMY Estimated Date of Delivery: 03/03/25 Gestational Age as of 11/01/2024: 22w4d Urinalysis macro (dipstick) panel (U)on 11-15-2024 Bilirubin, UA Negative Negative - 4(70) +++ mg/dL [facility] Blood, UA Negative Negative - 50 Sam/mcL [facility] Clarity, UA Clear [facility] re Color, UA Yellow [facility] Glucose, UA Negative Negative - 1999(110) ++++ mg/dL [facility] Interpretation and review of laboratory results Abnormal [facility] re Ketones, UA Negative Negative - 160(16) ++++ mg/dL [facility] Leukocytes, UA Trace Negative - 500+++ Supa/mcL [facility] Nitrite, UA Negative Negative - Positive [facility] pH, UA 6.5 5 - 9 [facility] Protein, UA Trace Negative - 1999(20) ++++ mg/dL [facility] Spec Grav, UA 1.02 1 - 1.03 [facility] Urobilinogen, UA 0.2 0.2 - 12 mg/dL [facility] Urinalysis macro (dipstick) panel (U)on 10-18-2024 Bilirubin, UA Negative Negative - 4(70) +++ mg/dL [facility] Blood, UA Negative Negative - 50 Sam/mcL [facility] Clarity, UA Clear [facility] re Color, UA Yellow [facility] Glucose, UA Negative Negative - 1999(110) ++++ mg/dL [facility] Interpretation and review of laboratory results Normal [facility] re Ketones, UA Negative Negative - 160(16) ++++ mg/dL [facility] Leukocytes, UA Negative Negative - 500+++ Supa/mcL [facility] Nitrite, UA Negative Negative - Positive [facility] pH, UA 6 5 - 9 [facility] e Protein, UA Negative Negative - 1999(20) ++++ mg/dL [facility] Spec Grav, UA 1.03 1 - 1.03 [facility] Urobilinogen, UA 0.2 0.2 - 12 mg/dL [facility] RECURRENT VAGINITIS (HTRX)on 09-23-2024 ATOPOBIUM VAGINAE 21.837 Abnormal [facility] ATOPOBIUM VAGINAE Detected Abnormal [facility] BVAB 2,3 (BACTERIAL VAGINOSIS ASSOCIATED BACTERIA 2, 3); MOBILUNCUS SPP 14.391 Abnormal [facility] BVAB 2,3 (BACTERIAL VAGINOSIS ASSOCIATED BACTERIA 2, 3); MOBILUNCUS SPP Detected Abnormal [facility] WILBERT ALBICANS, PARAPSILOSIS, TROPICALIS 0 [facility] WILBERT ALBICANS, PARAPSILOSIS, TROPICALIS Not detected [facility] WILBERT GLABRATA 0 [facility] WILBERT GLABRATA Not detected [facility] ealthcare WILBERT KRUSEI 0 [facility] Healt hcare WILBERT KRUSEI Not detected [facility] CHLAMYDIA TRACHOMATIS 0 [facility] CHLAMYDIA TRACHOMATIS Not detected [facility] ERMB, C; MEFA 22.056 Abnormal [facility] ERMB, C; MEFA Detected Abnormal [facility] GARDNERELLA VAGINALIS 27.529 Abnormal [facility] GARDNERELLA VAGINALIS Detected Abnormal [facility] Interpretation and review of laboratory results Abnormal [facility] re MEGASPHAERA (TYPES 1, 2) 15.923 Abnormal [facility] MEGASPHAERA (TYPES 1, 2) Detected Abnormal [facility] MYCOPLASMA GENITALIUM 0 [facility] MYCOPLASMA GENITALIUM Not detected [facility] NEISSERIA GONORRHOEAE 0 [facility] NEISSERIA GONORRHOEAE Not detected [facility] TET B, TET M 16.766 Abnormal [facility] Healthc are TET B, TET M Detected Abnormal [facility] Health are TRICHOMONAS VAGINALIS 0 [facility] TRICHOMONAS VAGINALIS Not detected [facility] GLUCOSE 1 HOURon 09-22-2024 Glucose [Mass/Vol] 114 mg/dL NINF - 13 0 mg/dL [facility] US OB [...] II, MD, PHD at 19-Oct-2024 09:01:31 AM [facility] Normal Not Available Comment on above: Order Comment: US OB ANATOMY SINGLE W US OB CERVICAL LENGTH Estimated Date of Delivery: 03/03/25 Gestational Age as of 09/21/2024: 16w5d Urinalysis macro (dipstick) panel (U)Ordered By: Vicky Rodríguez on 09-21-2024 Bilirubin, UA Negative Negative - 4(70) +++ mg/dL [facility] Blood, UA Negative Negative - 50 Sam/mcL [facility] Clarity, UA Clear [facility] Color, UA Yellow [facility] Glucose, UA Negative Negative - 1999(110) ++++ mg/dL [facility] Interpretation and review of laboratory results Normal [facility] Ketones, UA Negative Negative - 160(16) ++++ mg/dL [facility] Leukocytes, UA Negative Negative - 500+++ Supa/mcL [facility] Nitrite, UA Negative Negative - Positive [facility] pH, UA 7.5 5 - 9 [facility] Protein, UA Negative Negative - 1999(20) ++++ mg/dL [facility] Spec Grav, UA 1.02 1 - 1.03 [facility] Urobilinogen, UA 0.2 0.2 - 12 mg/dL [facility] Urinalysis macro (dipstick) panel (U)on 08-17-2024 Bilirubin, UA Negative Negative - 4(70) +++ mg/dL [facility] Blood, UA Negative Negative - 50 Sam/mcL [facility] Healthcare Clarity, UA Clear [facility] Color, UA Yellow [facility] Glucose, UA Negative Negative - 1999(110) ++++ mg/dL [facility] Interpretation and review of laboratory results Abnormal [facility] Ketones, UA Negative Negative - 160(16) ++++ mg/dL [facility] Leukocytes, UA Positive Negative - 500+++ Supa/mcL [facility] Comment on above: small Nitrite, UA Negative Negative - Positive [facility] pH, UA 6 5 - 9 [facility] Protein, UA Negative Negative - 1999(20) ++++ mg/dL [facility] Spec Grav, UA 1.03 1 - 1.03 [facility] Urobilinogen, UA 0.2 0.2 - 12 mg/dL [facility] MLR HEMOGLOBIN A1Con 024 Glucose [Mass/Vol] 111 mg/dL [facility]althcare HbA1c (Bld) [Mass fraction] 5.5 % 4.5 - 6.2 % [facility] Comment on above: ADA RECOMMENDED LIMI T 4.0 - 6.0 ADA THERAPEUTIC TARGET < 7.0 ACTION SUGGESTED > 7.0 [facility] Urine Cultureon 08-05-2024 Bacteria identified Cx Nom (U) <9,000 colonies/ml mixed bacterial skin contaminants 2 Days PERFORMED BY: [place] [address] PATHOLOGIST GIS COORDINATOR ELICEO SPENCER M.D. Normal [facility] Comment on above: Performed By: #### C UU #### [address] HCG ( test) Ql (U)o n 07-18-2024 Interpretation and review of laboratory results Abnormal [facility] re Preg Test, Ur Positive Negative [facility] Urinalysis macro (dipstick) panel (U)on 07-18-2024 Bilirubin, UA Negative Negative - 4(70) +++ mg/dL [facility] Blood, UA Negative Negative - 50 Sam/mcL [facility] Clarity, UA Clear [facility] re Color, UA Yellow [facility] Glucose, UA Negative Negative - 1999(110) ++++ mg/dL [facility] Interpretation and review of laboratory results Normal [facility] re Ketones, UA Negative Negative - 160(16) ++++ mg/dL [facility] Leukocytes, UA Negative Negative - 500+++ Supa/mcL [facility] Nitrite, UA Negative Negative - Positive [facility] pH, UA 6.5 5 - 9 [facility] Protein, UA Negative Negative - 1999(20) ++++ mg/dL [facility] Spec Grav, UA 1.02 1 - 1.03 [facility] Urobilinogen, UA 0.2 0.2 - 12 mg/dL [facility] TBH PREG QUANT HCGon 06-26-2 024 HCG QUANTITATIVE 203 mIU/mL [facility]a [facility] Comment on above: 5-50 0.2-1 WEEK 50-500 1-2 WEEKS 100-5,000 2-3 WEEKS 500-10,000 3-4 WEEKS 1,000-50,000 4-5 WEEKS 10,000-100,000 5-6 WEEKS 15,000-200,000 6-8 WEEKS 10,000-100,000 2-3 MONTHS [facility] e Quick Strepon 09-17-2023 S. pyogenes Org specific cx Ql (Throat) positve [employer] [facility] Other Quick Strep [employer] [facility] Other Test, Urineon 08-11 Beta HCG ( test) Ql (U) Negative [facility] Other Capillary Glucose POCon Glucose [Mass/Vol] 94 mg/dL Normal 55-99 [facility] Comment on above: Result Comment: Loretta mcneal RN/ Performed By: #### 2 [id number] #### [facility] Laboratory [address] [place] [id number] Consent for Treatmenton Consent for Treatment [id number] 0TIFF Normal [facility] Discharge Instructionson Discharge Instructions [id number] 0TIFF Normal [facility] ED Clinical Summaryon 2022 ED Clinical Summary [address] [id number] ED Clinical Summary Person Information Name: FRANCES DOE/NewShilpa Age: 17 Years : 2005 Sex: Female Language: Trinidadian PCP: Hazel Grady MD Marital Status: Single [...] 07/14/2023 03:42:20 07/14/2023 03:42:20 07/14/2023 03:42:20 ADDRESS: [address] [place] [address] DR MONSERRAT Berg [facility] [id number] PHYS DOC NOTES: MEDICAL INFORMATION: Prescriptions Given: New Medications [id number], [address], [place] [id number], [phone] azithromycin (azithromycin 250 mg Tab) 1 Tablets By Mouth every day for 4 Days. Refills: 0. PATIENT EDUCATION INFORMATION: Instructions: Viral Illness, Adult; Otitis Media, Adult Follow up: With: Address: When: Hazel Grady [address] [place] [address] Business (2) In 7 days 07/21/2023 DIAGNOSIS: AOM (acute otitis media); Viral illness Normal [facility] ED Note-Physicianon 07-14-20 ED Note-Physician [...] and Complexity of Problems Differential Diagnosis: [] [facility] Data External documents reviewed: N/A My [...] day(s), # 4 tab(s), Refills(s) 0, Pharmacy: [id number], 175, cm, 07/13/23 23:42:00 EST, Height/Length Dosing, 121.7, kg, 07/13/23 23:42:00 EST, Weight Dosing Capillary Glucose POC Influenza A&B Ag Rapid COVID Antigen ([facility] Resp.syn.virus (Rsv) XR Chest Single View Disposition Plan Discharge Prescription List Prescriptions azithromycin 250 mg Tab, 250 mg= 1 tab(s), Oral, Daily Follow-up With When Contact Information Hazel Grady In 7 days 07/21/2023 EST [address] [place] [id number] [facility] (2) Additional Instructions: Patient Education [...] 94 mg/dL (07/14/23 02:00:00) POC Device SN: [id number] (07/14/23 02:00:00) POC User ID: [id number] (07/14/23 02:00:00) POC Username: POC Username (07/14/23 [...] By: Dom Sarmiento DO 07/14/2023 01:56:22 Normal [facility] Comment on above: Result Comment: [...] Follow these instructions at home: ? Take iqlw-yed-aarpohg and prescription medicines only as told by [...] Reviewed: 11/03/2021 Elsevier Patient Education ? 2022 [employer]. Infectious Disease Viral Illness, Adult Viruses are [...] cause illne (more content not included)... Normal [facility] ED Patient Summaryon 023 ED Patient Summary [place] [id number] Patient Discharge Instructions Person Information Name: FRANCES DOE Age: 17 Years Arrival Date: 07/13/2023 23:32:13 Discharge Diagnosis: AOM (acute otitis media); Viral illness Primary Care Physician: Hazel Grady MD Provider Information Primary Provider: Dom Sarmiento DO Advanced Calender Runner:None The exam and treatment you received in the Emergency Department were for an urgent problem and are not intended as complete care. It is important that you follow up with a doctor, nurse practitioner, or physician?s operations administrative assistant for ongoing care. If your symptoms [...] Follow-up Instructions: With: Address: When: Hazel Grady [address] [place] [address] Business (2) In 7 days 07/21/2023 In the event that this physician does not participate in your insurance network, please consult with your insurance company to find a nearby participating provider. Patient Education Materials: Viral Illness, Adult; Otitis Media, Adult A MESSAGE TO ALL PATIENTS REGARDING OPIOIDS PRESCRIPTION OPIOIDS: WHAT YOU NEED TO KNOW Prescription opioids can be used to help relieve ajlenosd-ev-rxocef pain and are often prescribed following a [...] struggling with addiction, tell your health healthcare project manager and ask for guidance or call [employer]?S National Helpline at 1-757-881-KLUY. (more content not included)... Normal [facility] Influenza A&B Agon 3 Influenzae A Ag Negative Normal Negative [facility] Comment on above: Performed By: #### 2 [id number] #### [facility] Laboratory [address] [place] [address] Influenzae B Ag Negative Normal Negative [facility] Comment on above: Result Comment: Test sensitivity and specificity vary for age group, specimen type, antigen types, and prevalence of disease. Test results must be evaluated in conjunction with other clinical data available to the physician. Individuals who received nasally administered Influenza A vaccine may have positive test results up to 3 days after vaccination. Performed By: #### 2 [id number], [id number] #### [facility] [address] [place] [address] Prescriptions/Work Noteson 1 09-14-2022 Prescriptions/Work Notes [id number] 0TIFF Normal [facility] Rapid COVID Antigen ([facility])on 07-14-2023 Rapid COV Int NEG Ctl Pass Normal [facility] Comment on above: Performed By: #### 2 [id number] #### [facility] Laboratory [address] [place] [address] Rapid COV Int POS Ctl Pass Normal [facility] Comment on above: Performed By: #### 2 [id number] #### [facility] [address] [place] [address] SARS-CoV+SARS-CoV-2 (COVID-19) Ag IA.rapid Ql (Resp) Not detected Normal Not Detected [facility] Comment on above: Result Comment: The Cytox System for Rapid Detection of SARS-CoV-2 is [...] or pathogens; and, in the [facility], this test is only authorized for the duration of the declaration that circumstances exist justifying the authorization of emergency use of in vitro diagnostics for detection and/or diagnosis of the virus that causes COVID-19 under Section 564(b)(1) of the Act, 21 U.S.C. ? 360bbb-3(b)(1), unless the authorization is terminated or revoked sooner. Performed By: #### 2 [id number], [id number] #### [facility] [address] [place] [address] Resp.syn.virus (Rsv)on 07-14 RSV Ag IA.rapid Ql (Nph) Negative Normal Negative [facility] Comment on above: Performed By: #### 2 [id number], [id number], [id number] #### [facility] [address] [place] [address] XR Chest Single Viewon 07-14 XR Chest [...] mGy = na DAP = na Normal [facility] [employer]son 12-24-2022 Forms [id number] Normal [facility] Vital Signs Date Time Vital Sign Value Performing Clinician Facility 02-01-2025 09:05-0400 Body weight 146.69 kg Maryanne FOWLER Work Phone: [facility] 02-01-2025 09:05-0400 Diastolic blood pressure 64 mm[Hg] Maryanne Covarrubias PA Work Phone: [facility] 02-01-2025 09:05-0400 Systolic blood pressure 110 mm[Hg] Maryanne Covarrubias PA Work Phone: [facility] 01-25-2025 09:18-0400 Body weight 143.79 kg Yogesh Ally DO Work Phone: [facility] 01-25-2025 09:18-0400 Diastolic blood pressure 80 mm[Hg] Yogesh Ally DO Work Phone: [facility] 01-25-2025 09:18-0400 Systolic blood pressure 128 mm[Hg] Yogesh Ally DO Work Phone: [facility] 01-11-2025 13:41-0400 Body weight 143.34 kg Maryanne FOWLER Work Phone: [facility] 01-11-2025 13:41-0400 Diastolic blood pressure 76 mm[Hg] Maryanne Covarrubias PA Work Phone: [facility] 01-11-2025 13:41-0400 Systolic blood pressure 122 mm[Hg] Maryanne Covarrubias PA Work Phone: [facility] 12-28-2024 10:20-0400 Body weight 139.82 kg Yogesh Ally DO Work Phone: [facility] 12-28-2024 10:20-0400 Diastolic blood pressure 82 mm[Hg] Yogesh Ally DO Work Phone: [facility] 12-28-2024 10:20-0400 Systolic blood pressure 126 mm[Hg] Yogesh Ally DO Work Phone: [facility] 12-06-2024 13:53-0400 Body weight 139.71 kg Lynette Gunter LEAD JAVA PROGRAMMER Work Phone: [facility] 12-06-2024 13:53-0400 Diastolic blood pressure 70 mm[Hg] Lynette Gunter NP Work Phone: [facility] 12-06-2024 13:53-0400 Systolic blood pressure 114 mm[Hg] Lynette Lyric LEAD JAVA PROGRAMMER Work Phone: [facility] 11-15-2024 10:36-0400 Body weight 139.16 kg Yogesh Ally DO Work Phone: [facility] 11-15-2024 10:36-0400 Diastolic blood pressure 78 mm[Hg] Yogesh Ally DO Work Phone: [facility] 11-15-2024 10:36-0400 Systolic blood pressure 130 mm[Hg] Yogesh Ally DO Work Phone: [facility] 10-18-2024 14:37-0400 Body weight 136.99 kg Maryanne Covarrubias PA Work Phone: [facility] 10-18-2024 14:37-0400 Diastolic blood pressure 78 mm[Hg] Maryanne Covarrubias PA Work Phone: [facility] 10-18-2024 14:37-0400 Systolic blood pressure 130 mm[Hg] Maryanne Marci PA Work Phone: [facility] 09-21-2024 16:43-0500 Body weight 136.9 kg Maryanne Marci PA Work Phone: [facility] 09-21-2024 16:43-0500 Diastolic blood pressure 76 mm[Hg] Mrayanne Marci PA Work Phone: [facility] 09-21-2024 16:43-0500 Systolic blood pressure 118 mm[Hg] Maryanne Marci PA Work Phone: [facility] 08-17-2024 11:52-0500 Body weight 138.8 kg Yogesh Ally DO Work Phone: [facility] 08-17-2024 11:52-0500 Diastolic blood pressure 78 mm[Hg] Yogesh Ally DO Work Phone: [facility] 08-17-2024 11:52-0500 Systolic blood pressure 122 mm[Hg] Yogesh Ally DO Work Phone: [facility] 07-18-2024 11:15-0500 Body weight 139.71 kg [facility] Nurse [facility] 07-18-2024 11:15-0500 Diastolic blood pressure 74 mm[Hg] [facility] Nurse [facility] 07-18-2024 11:15-0500 Systolic blood pressure 118 mm[Hg] [facility] Nurse [facility] 09-17-2023 09:35-0500 Body height 175.26 cm Tiesha Flood Other [employer] Other 09-17-2023 09:35-0500 Body mass index (BMI) [Ratio] 40.16 kg/m2 Tiesha Flood Other [employer] Other 09-17-2023 09:35-0500 Body temperature 99.2 [degF] Tiesha Flood Other [employer] Other 09-17-2023 09:35-0500 Body weight 123.38 kg Tiesha Flood Other [employer] Other 09-17-2023 09:35-0500 Respiratory rate 18 /min Tiesha Flood Other [employer] Other 09-17-2023 09:35-0500 SaO2% (BldA) [Mass fraction] 97 % Tiesha Flood Other [employer] Other 09-02-2023 09:30-0500 Body height 175.26 cm Sheree Cheung Other [employer] Other 09-02-2023 09:30-0500 Body mass index (BMI) [Ratio] 40.21 kg/m2 Sheree Cheung Other [employer] Other 09-02-2023 09:30-0500 Body weight 123.52 kg Sheree Jonatan Other [employer] Other 09-02-2023 09:30-0500 Diastolic blood pressure 78 mm[Hg] Sheree Jonatan Other [employer] Other 09-02-2023 09:30-0500 Respiratory rate 18 /min Sheree Cheung Other [employer] Other 09-02-2023 09:30-0500 SaO2% (BldA) [Mass fraction] 97 % Sheree Jonatan Other [employer] Other 09-02-2023 09:30-0500 Systolic blood pressure 120 mm[Hg] Sheree Cheung Other [employer] Other 07-27-2023 09:30-0500 Body height 175.26 cm Sheree Jonatan Other [employer] Other 07-27-2023 09:30-0500 Body mass index (BMI) [Ratio] 40.02 kg/m2 Sheree Jonatan Other [employer] Other 07-27-2023 09:30-0500 Body weight 122.93 kg Sheree Cheung Other [employer] Other 07-27-2023 09:30-0500 Diastolic blood pressure 76 mm[Hg] Sheree Cheung Other [employer] Other 07-27-2023 09:30-0500 Respiratory rate 16 /min Sheree Cheung Other [employer] Other 07-27-2023 09:30-0500 SaO2% (BldA) [Mass fraction] 98 % Sheree Cheung Other [employer] Other 07-27-2023 09:30-0500 Systolic blood pressure 120 mm[Hg] Sheree Cheung Other [employer] Other 01-21-2022 15:35-0400 Body height 175.26 cm Almaz Huerta Other [employer] Other 01-21-2022 15:35-0400 Body mass index (BMI) [Ratio] 30.86 kg/m2 Almaz Deanna Other [employer] Other 01-21-2022 15:35-0400 Body temperature 97.3 [degF] Almaz Benavidezmond Other [employer] Other 01-21-2022 15:35-0400 Body weight 94.8 kg Almaz Deanna Other [employer] Other 01-21-2022 15:35-0400 Diastolic blood pressure 73 mm[Hg] Almaz Deanna Other [employer] Other 01-21-2022 15:35-0400 Respiratory rate 16 /min Almaz Deanna Other [employer] Other 01-21-2022 15:35-0400 SaO2% (BldA) [Mass fraction] 97 % Almaz Deanna Other [employer] Other 01-21-2022 15:35-0400 Systolic blood pressure 133 mm[Hg] Almaz Deanna Other [employer] Other Encounters Encounter Date Encounter Type Care Provider Facility Start: 02-01-2025 End: 02-01-2025 Bamboo flowsheet Maryanne FOWLER Work Phone: [facility] Start: 02-01-2025 End: 02-01-2025 Bamboo flowsheet Maryanne FOWLER Work Phone: [facility] Start: 02-01-2025 End: 02-01-2025 Clinisync Result Encounter Yogesh Ally DO Work Phone: [facility] Unsolicited Start: 02-01-2025 End: 02-01-2025 flow sheet Maryanne FOWLER Work Phone: [facility] Comment on above: 35 weeks gestation o f ([facility]); Third trimester ([facility]); Pruritus; Oligohydramnios in third trimester, fetus 1 of multiple gestation ([facility]); SGA (small for gestational age) ([facility]); headache in third trimester ([facility]) Start: 02-01-2025 End: 02-01-2025 ambulatory MARYANNE COVARRUBIAS Not Available Start: 01-31-2025 End: 01-31-2025 Clinisync Result Encounter Yogesh Ally DO Work Phone: [facility] Unsolicited Start: 01-31-2025 End: 01-31-2025 Clinisync Result Encounter Yogesh Ally DO Work Phone: [facility] Unsolicited Start: 01-25-2025 End: 01-25-2025 Bamboo flowsheet Yogesh Ally DO Work Phone: [facility] Start: 01-25-2025 End: 01-25-2025 Bamboo flowsheet Yogesh Ally DO Work Phone: [facility] Start: 01-25-2025 End: 01-25-2025 Clinisync Result Encounter Yogesh Ally DO Work Phone: [facility] Unsolicited Start: 01-25-2025 End: 01-25-2025 ambulatory YOGESH ALLY Not Available Start: 01-25-2025 End: 01-25-2025 flow sheet Yogesh Ally DO Work Phone: [facility] Comment on above: Third trimester preg merly ([facility]-HCC); 34 weeks gestation of ([facility]) Start: 01-24-2025 End: 01-24-2025 Clinisync Result Encounter Yogesh Ally DO Work Phone: [facility] Unsolicited Start: 01-24-2025 End: 01-24-2025 Clinisync Result Encounter Yogesh Ally DO Work Phone: [facility] Unsolicited Start: 01-18-2025 End: 01-18-2025 ambulatory YOGESH R ALLY [facility] Start: 01-17-2025 End: 01-17-2025 Clinisync Result Encounter Yogesh Ally DO Work Phone: [facility] External Department Unsolicited Start: 01-17-2025 End: 01-17-2025 [...] visit 15 minutes Maryanne FOWLER Work Phone: [facility] Comment on above: Third trimester [...] 12-06-2024 End: 12-06-2024 Bamboo flowsheet Lynette Lyric LEAD JAVA PROGRAMMER Work Phone: [facility] Start: 12-06-2024 End: 12-06-2024 Bamboo flowsheet Lynette Lyric LEAD JAVA PROGRAMMER Work Phone: [facility] Start: 12-06-2024 End: 12-06-2024 flow sheet Lynette Lyric LEAD [employer] PROGRAM[employer] Work Phone: [facility] Comment on [...] 09-21-2024 Bamboo flowsheet Maryanne FOWLER Work Phone: [facility] Start: 09-21-2024 End: 09-23-2024 Bamboo flowsheet Maryanne FOWLER Work Phone: [facility] Start: 09-21-2024 End: 09-23-2024 External Result Encounter Maryanne FOWLER Work Phone: [facility] External Department Unsolicited Start: 08-17-2024 End: 08-17-2024 Bamboo flowsheet Yogesh Ally DO Work Phone: [facility] Start: 08-17-2024 End: 08-17-2024 Bamboo flowsheet Yogesh Ally DO Work Phone: [facility] Start: 08-17-2024 End: 08-17-2024 flow sheet Yogesh Ally DO Work Phone: [facility] Comment on above: First trimester [...] Start: 08-05-2024 End: 08-05-2024 ambulatory Sheree Cheung Facility:[facility] Start: 07-18-2024 End: 07-18-2024 ambulatory [facility] Ally Nurse [facility] Comment on above: GA: 7w3d Start: 06-26-2024 End: 06-26-2024 Clinisync Result Encounter Maryanne Camposlashaun FOWLER Work Phone: [facility] Unsolicited Start: 06-26-2024 End: 06-26-2024 Clinisync Result Encounter Maryanne Covarrubias JANETH Work Phone: [facility] Unsolicited Start: 09-17-2023 End: 09-17-2023 ambulatory Tiesha Flood Other [employer] Other Start: 09-17-2023 Office outpatient vi sit 15 minutes Tiesha Flood [facility] Start: 09-02-2023 End: 09-02-2023 ambulatory Sheree Cheung Other [employer] Other Start: 09-02-2023 Office outpatient vi sit 25 minutes Sheree Cheung [facility] Start: 07-27-2023 End: 07-27-2023 ambulatory Sheree Cheung Other [employer] Other Start: 07-27-2023 Encounter for genera l adult medical examination without abnormal findings Sheree Cheung [facility] [place] Start: 07-27-2023 Initial preventive medicine new pt age 18-39yrs Sheree Cheung [facility] [place] Start: 07-14-2023 End: 07-14-2023 Emergency department patient visit Dom Sarmiento [facility] Start: 12-24-2022 ambulatory Dom Sarmiento Facility: [facility] [place] Start: 04-06-2022 End: 04-06-2022 ambulatory HAZEL GRADY Facility: Start: 01-21-2022 (URG) Urgent Care Visit Almaz romero [facility] Start: 01-21-2022 End: 01-21-2022 ambulatory Almaz Deanna Other [employer] Other Procedures Date Procedure Procedure Detail Performing Clinician Start: 02-01-2025 [facility] TOTAL PROTEIN 24 HOUR URINE Yogesh Ally DO Work Phone: Start: 02-01-2025 Urnls dip stick/tabl et rgnt non-auto w/o micrscp Maryanne FOWLER Work Phone: Start: 01-31-2025 US OB BPP W NON-STRESS Yogesh Ally DO Work Phone: Start: 01-25-2025 US [...] 12-16-2024 ALL CBC WITH AUTO DIFF Yogesh Laly DO Work Phone: Start: 12-15-2024 [facility] UA (CLEAN/CATCH) HOSPITALITY HOUSEKEEPER/MICRO IF IND. Yogesh Ally DO Work Phone: Start: 12-06-2024 Urnls dip stick/tabl et rgnt non-auto w/o micrscp Lynettegeovani Gunter NP Work Phone: Start: 11-30-2024 ALL [...] Treatment Date Care Activity Detail Author Start: 02-12-2025 End: 02-12-2025 Patient encounter procedure 02/12/2025 1:50 PM EDT Office Visit [facility] [address] [place] [address] Maryanne Covarrubias PA [address] [place] [address] [facility] Start: 02-01-2025 End: 02-01-2026 CULTURE, GROUP B STREP WITH SUSCEPTIBLITY CULTURE, GROUP B STREP WITH SUSCEPTIBLITY Lab Routine Third trimester ([facility]) Expected: 02/01/2025, Expires: 02/01/2026 [facility] Work Phone: Comment on above: Expected: 02/01/2025 , Expires: 02/01/2026 Start: 02-01-2025 End: 02-01-2025 Patient encounter procedure [facility] Comment on above: Arrived Start: 01-25-2025 End: 01-25-2025 Patient encounter procedure 01/25/2025 8:40 AM EDT Routine [facility] [address] [place] [id number] Yogesh Canales DO [address] [place] [address] [facility] Start: 01-11-2025 End: 01-11-2026 [...] AM EDT Routine [facility] [address] [place] [address] Yogesh Canales DO [address] [place] [address] [facility] Start: 12-28-2024 End: 12-28-2024 Professional / ancillary services management 12/28/2024 9:00 AM EDT Ancillary Procedure [facility] [address] [place] [phone] [facility] Start: 12-06-2024 End: 04-07-2025 [...] mellitus screening Expected: 11/15/2024 (Approximate), Expires: 11/15/2025 [facility] Comment on above: Expected: 11/15/2024 (Approximate), Expires: 11/15/2025 Start: 11-15-2024 End: 11-15-2024 Patient encounter procedure 11/15/2024 1:10 PM EDT Routine [facility] [address] [place] [address] Yogesh Canales DO [address] [place], [place] [id number] [facility] Start: 10-18-2024 End: 10-18-2024 Patient encounter procedure 10/18/2024 2:30 PM EDT Routine [facility] [address] [place] [phone] Maryanne Covarrubias PA [address] [place] [address] [facility] Start: 10-18-2024 End: 10-18-2024 Professional / ancillary services management 10/18/2024 1:00 PM EDT Ancillary Procedure [facility] [address] [place] [phone] [facility] Start: 09-21-2024 End: 09-21-2024 Patient encounter procedure 09/21/2024 3:20 PM EST Routine [facility] [address] [place] [address] Maryanne Covarrubias PA [address] [place] [address] Arrived [facility] Comment on above: Arrived Start: 09-21-2024 End: 11-19-2024 Alpha fetoprotein, maternal Alpha fetoprotein, maternal Lab Routine Screening, , for anatomic survey Expected: 09/21/2024 (Approximate), Expires: 11/19/2024 [facility] Comment on above: Expected: 09/21/2024 (Approximate), Expires: 11/19/2024 Start: 09-21-2024 End: 09-21-2025 Measurement of glucose 1 hour after glucose challenge for glucose tolerance test Glucose tolerance, 1 hour Lab Routine Diabetes mellitus screening Expected: 09/21/2024 (Approximate), Expires: 09/21/2025 [facility] Comment on above: Expected: 09/21/2024 (Approximate), Expires: 09/21/2025 Start: 09-21-2024 End: 09-21-2025 US for US OB 14+ weeks anatomy scan Imaging Routine Screening, , for anatomic survey Expected: 09/21/2024, Expires: 09/21/2025 [facility] Comment on above: Expected: 09/21/2024 , Expires: 09/21/2025 Start: 09-21-2024 End: 09-21-2024 Patient encounter procedure 09/21/2024 9:30 AM EST Routine [facility] [address] [place] [address] Maryanne Covarrubias PA [address] [place] [address] [facility] Start: 08-17-2024 End: 08-17-2024 [facility] Comment on above: Arrived Start: 07-18-2024 End: 07-18-2025 ABO/Rh ABO/Rh Lab Routine Missed menses , unspecified gestational age Expected: 07/18/2024 (Approximate), Expires: 07/18/2025 [facility] Comment on above: Expected: 07/18/2024 (Approximate), Expires: 07/18/2025 Start: 07-18-2024 End: 07-18-2025 Blood type and Indirect antibody screen panel - Blood Type and screen Lab Routine Missed menses , unspecified gestational age Expected: 07/18/2024 (Approximate), Expires: 07/18/2025 [facility] Work Phone: Comment on above: Expected: 07/18/2024 (Approximate), Expires: 07/18/2025 Start: 07-18-2024 End: 07-18-2025 Drugs of abuse panel - Urine by Screen method Rapid drug screen, urine Lab Routine , unspecified gestational age Encounter for supervision of normal first in first trimester Expected: 07/18/2024 (Approximate), Expires: 07/18/2025 [facility] Comment on above: Expected: 07/18/2024 (Approximate), Expires: 07/18/2025 Start: 07-18-2024 End: 07-18-2025 US Pelvis transvaginal US OB transvaginal Imaging Routine Missed menses Expected: 07/18/2024 (Approximate), Expires: 07/18/2025 [facility] Comment on above: Expected: 07/18/2024 (Approximate), Expires: 07/18/2025 Start: 07-18-2024 End: 07-18-2024 ambulatory 07/18/2024 10:30 AM EST Initial [facility] [address] [place] [address] [facility] Start: 07-18-2024 End: 07-18-2024 Professional / ancillary services management 07/18/2024 10:00 AM EST Ancillary Procedure [facility] [address] [place] [address] [facility] Bacteria identified in Urine by Culture Urine culture Microbiology Routine Missed menses Ordered: 07/18/2024 [facility] Comment on above: Ordered: 07/18/2024 CBC W Auto Different ial panel - Blood CBC and differential Lab Routine Missed menses , unspecified gestational age Ordered: 07/18/2024 [facility] Comment on above: Ordered: 07/18/2024 CHLAMYDIA TRACHOMATI S (GENITO/STI) CHLAMYDIA TRACHOMATIS (GENITO/STI) Lab Routine STD exposure Vaginal discharge Ordered: 09/21/2024 [facility] Comment on above: Ordered: 09/21/2024 Hemoglobin A1c/Hemoglobin.total in Blood Hemoglobin A1c Lab Routine Missed menses , unspecified gestational age Ordered: 07/18/2024 [facility] Comment on above: Ordered: 07/18/2024 Hepatitis B virus surface Ag [Presence] in Serum or Plasma by Immunoassay Hepatitis B surface antigen Lab Routine Missed menses , unspecified gestational age Ordered: 07/18/2024 [facility] Comment on above: Ordered: 07/18/2024 Hepatitis C virus Ab [Presence] in Serum or Plasma by Immunoassay Hepatitis C antibody Lab Routine Missed menses , unspecified gestational age Ordered: 07/18/2024 [facility] Comment on above: Ordered: 07/18/2024 HIV-1/HIV-2 antigen/antibody combination immunoassay HIV-1 and HIV-2 antibodies Lab Routine Missed menses , unspecified gestational age Ordered: 07/18/2024 [facility] Comment on above: Ordered: 07/18/2024 Neisseria gonorrhoea e DNA [Presence] in Unspecified specimen by ISAURO with probe detection Neisseria gonorrhea DNA probe, direct Lab Routine STD exposure Vaginal discharge Ordered: 09/21/2024 [facility] Comment on above: Ordered: 09/21/2024 Reagin Ab [Presence] in Serum by RPR RPR Lab Routine Missed menses , unspecified gestational age Ordered: 07/18/2024 [facility] Comment on above: Ordered: 07/18/2024 Rubella antibody, IgG Rubella an tibody, IgG Lab Routine Missed menses , unspecified gestational age Ordered: 07/18/2024 [facility] Comment on above: Ordered: 07/18/2024 SURESWAB(R) ADVANCED VAGINITIS PLUS, TMA SURESWAB(R) ADVANCED VAGINITIS PLUS, TMA Pathology and Cytology Routine STD exposure Vaginal discharge Ordered: 09/21/2024 [facility] Work Phone: Comment on above: Ordered: 09/21/2024 Immunizations Immunization Date Immunization Notes Care Provider Chase sequeira 03-17-2021 Human Papillomavirus 9-valent vaccine Almaz Deanna Other [employer] Other 02-10-2021 Do not use COVID-19 Pfizer 2 dose Almaz Deanna Other [employer] Other 08-04-2016 Human Papillomavirus 9-valent vaccine Almaz Deanna Other [employer] Other 05-22-2016 Human Papillomavirus 9-valent vaccine Almaz Deanna Other [employer] Other 07-29-2015 hepatitis A vaccine, pediatric/adolescent dosage, 2 dose schedule Almaz Deanna Other [employer] Other 04-02-2007 hepatitis A vaccine, pediatric/adolescent dosage, 2 dose schedule Almaz Deanna Other [employer] Other 04-14-2005 diphtheria, tetanus toxoids and acellular pertussis vaccine, 5 pertussis antigens Almaz Deanna Other [employer] Other 10-09-2004 measles, mumps and rubella virus vaccine Almaz Deanna Other [employer] Other 04-21-2004 DTaP-hepatitis B and poliovirus vaccine Almaz Deanna Other [employer] Other 04-21-2004 haemophilus influenz ae type b vaccine, PRP-T conjugate Almaz Deanna Other [employer] Other 02-19-2004 DTaP-hepatitis B and poliovirus vaccine Almaz Deanna Other [employer] Other 02-19-2004 haemophilus influenz ae type b vaccine, PRP-T conjugate Almaz Deanna Other [employer] Other 2003 DTaP-hepatitis B and poliovirus vaccine Almaz Deanna Other [employer] Other 2003 haemophilus influenz ae type b vaccine, PRP-T conjugate Almaz Deanna Other [employer] Other 2003 hepatitis B vaccine, pediatric or pediatric/adolescent dosage Almaz Deanna Other [employer] Other Payers Date Payer Category Payer Self-pay 2021 Private Health Insurance 2003 Unknown [id number] 2.16.8 [id number] 2003 Unknown [id number] 2.16. [id number] 2003 Unknown [id number] 2.16.8 40.1.821764.3.579.2.1259 2003 Unknown [id number] 2.16.8 40.1.827045.3.579.2.1259 2003 Unknown [id number] 2.16.8 40.1.188513.3.579.2.1259 2003 Unknown [id number] 2.16.84 0.1.147148.3.579.2.1259 2003 Unknown [id number] 2.16.84 0.1.841418.3.579.2.1259 2003 Unknown [id number] 2.16.84 0.1.056064.3.579.2.1259 2003 Unknown [id number] 2.16.84 0.1.177749.3.579.2.1259 2003 Unknown [id number] 2.16.84 0.1.654682.3.579.2.1259 2003 Unknown [id number] 2.16.84 0.1.596419.3.579.2.1259 2003 Unknown [id number] 2.16.84 0.1.577194.3.579.2.9 2003 Unknown [id number] 2.16.84 0.1.244672.3.579.2.1259 2003 Unknown [id number] 2.16.84 0.1.703378.3.579.2.1259 2003 Unknown [id number] 2.16.84 0.1.351702.3.579.2.1259 1959 Unknown [id number] 1959 Unknown [id number] 1959 Unknown [id number] 2.16.84 0.1.395320.3.579.2.593 Unknown [id number] 2.16.8 40.1.573318.3.579.2.531 Social History Date Type Detail Facility Unknown if ever smoked [employer] Other Sex Assigned At [employer] Other Tobacco smoking status [facility] Tobacco smoking consumption unknown [facility] Start: 2003 Sex assigned at Not on file [facility] Start: 06-10-2024 [facility] Clinical Notes 01-21-2022 to 02-01-2025 Madeline Toribio, [facility] - 02/01/2025 8:50 AM NINAbettie Covarrubias, JANETH - 01/25/2025 8:40 AM JANETH Blanca - 01/11/2025 1:30 PM EDTSkenna Rodríguez, [facility] - 12/28/2024 9:50 AM Keeley CovarrubiasJANETH - 10/18/2024 2:30 PM EDT Note Date & Type Note Facility 02-01-2025 History of Presen t illness Narrative Reason [...] nursing note reviewed. Exam conducted with a vp product management present. Vitals: There is no height or [...] of: JANETH Ji documented in this encounter [facility] 01-25-2025 History of Presen t illness Narrative [...] ASSESSMENT & PLAN ICD-10-CM 1. Third trimester ([facility]) Z34.93 POCT urinalysis dipstick manually resulted 2. 34 weeks gestation of ([facility]) Z3A.34 Return OB: Patient presents today [...] Yogesh Canales DO documented in this encounter [facility] 01-11-2025 History of Presen t [...] of: JANETH Ji documented in this encounter [facility] 12-28-2024 History of Presen t [...] nursing note reviewed. Exam conducted with a vp product management present. Vitals: There is no height or [...] Yogesh Canales DO documented in this encounter [facility] 12-06-2024 History of Presen t [...] nursing note reviewed. Exam conducted with a vp product management present. Vitals: There is no height or [...] Lynette Gunter NP documented in this encounter [facility] 11-15-2024 History of Presen t [...] nursing note reviewed. Exam conducted with a vp product management present. Vitals: There is no height or [...] Yogesh Canales DO documented in this encounter [facility] 10-18-2024 History of Presen t [...] of: JANETH Ji documented in this encounter [facility] 09-21-2024 History of Presen t [...] obtained without difficulty and patient was given [facility] order to have obtained. Orders [...] of: JANETH Ji documented in this encounter [facility] 08-17-2024 History of Presen t [...] nursing note reviewed. Exam conducted with a vp product management present. Vitals: There is no height or [...] Yogesh Canales DO documented in this encounter [facility] 07-18-2024 History of Presen t [...] Jazmyne Oliveira MA documented in this encounter [facility] 09-17-2023 Evaluation note Encounter Date [...] understanding and is agreeable to treatment plan. [employer] Other 01-25-2024 Evaluation note* Encounter Date Diagnosis [...] and no personal patient information was compromised. [employer] Other 12-19-2023 Evaluation note* Encounter Date Diagnosis [...] (ICD-10 - F32.1) See above treatment plan. [employer] Other 06-15-2022 Evaluation note* Encounter Date Diagnosis Assessment Notes Treatment Notes Treatment Clinical Notes Jan, Pre-employment examination (ICD-10 - Z02.1) [employer] Other Evaluation note* Diagnosis Missed menses , [...] of ([facility]) [facility] Diagnosis 35 weeks gestation of ([facility]) Third trimester ([facility]HS-HCC) state, incidental Pruritus Unspecified pruritic disorder Oligohydramnios in third trimester, fetus 1 of multiple gestation (HHS-HCC) SGA (small for gestational age) (HHS-HCC) Soglf-bwq-ulzwb without mention of malnutrition, unspecified (weight) headache in third trimester ([facility]) documented [facility] N[facility]ative - Reported* Type Description Date Medical History vertigo [employer] Other Reason for referral (narrative)* Reason Refer to Sylwia berg or counseling for anxiety and depression Diagnosis 1 MATTHIAS (generalized anx iety disorder) (F41.1) Referral Organization [facility] Referring Provider First Name Sheree Referring Provider Last Name Sarthakkevin Referring Provider Specialty Nurse Bree grullon Referred Provider Specialty Psychiatry Referral Priority Routine [employer] Other Summary Purpose Family History No [...] and content) DATE CREATED AUTHOR 04/10/2022 [facility] DATE CREATED AUTHOR AUTHOR'S ORGANIZ ATION 08/13/2023 [facility] DATE CREATED AUTHOR AUTHOR'S ORGANIZ ATION 08/09/2024 [facility] DATE CREATED AUTHOR AUTHOR'S ORGANIZ ATION 01/20/2025 [facility] DATE CREATED AUTHOR AUTHOR'S ORGANIZ ATION 02/02/2025 [facility] dical Specialists [employer] Care Teams (unrecognized sec tion and content) Hammer Fitter Relationship Specialty Start Date End Date Hazel Grady MD [address] [place] [address] PCP - General Family Medicine 07/18/24 Hammer Fitter Relationship Specialty Start Date End Date Hazel Grady MD [address] [place] [address] PCP - General Family Medicine 07/18/24 Hammer Fitter Relationship Specialty Start Date End Date Hazel Grady MD [address] [place] [address] PCP - General Family Medicine 07/18/24 Hammer Fitter Relationship Specialty Start Date End Date Hazel Grady MD [address] [place] [address] PCP - General Family Medicine 07/18/24 Hammer Fitter Relationship Specialty Start Date End Date Hazel Grady MD [address] [place] [address] PCP - General Family Medicine 07/18/24 Hammer Fitter Relationship Specialty Start Date End Date Hazel Grady MD [address] [place] [address] PCP - General Family Medicine 07/18/24 Hammer Fitter Relationship Specialty Start Date End Date Hazel Grady MD [address] [place] [address] PCP - General Family Medicine 07/18/24 Hammer Fitter Relationship Specialty Start Date End Date Hazel Grady MD [address] [place] [address] PCP - General Family Medicine 07/18/24 Hammer Fitter Relationship Specialty Start Date End Date Hazel Grady MD [address] [place] [address] PCP - General Family Medicine 07/18/24 Hammer Fitter Relationship Specialty Start Date End Date Hazel Grady MD [address] [place] [address] PCP - General Family Medicine 07/18/24 Hammer Fitter Relationship Specialty Start Date End Date Hazel Grady MD [address] [place] [address] PCP - General Family [facility] 07/18/24 Hammer Fitter Relationship Specialty Start Date End Date Hazel Grady MD [address] [place] [address] PCP - General Family Medicine 07/18/24 FOR [...] BE BASED ON THE PRIMARY CLINICAL RECORDS. [employer] [facility]. provides no warranty or guarantee of the accuracy or completeness of information in this document.
--- OUTSIDE RECORDS SUMMARY | 2025-02-03 10:11 | XMS_ITS | Encounter Summary ---
Author Organization [facility] Address [address] [place] [address] Care Team Providers Care Sap Portal Architect Name Role Phone David Awan MD Primary Care Provider [phone] Encounter Details Date Type Department Care Team (Late st Contact Info) Description 08/08/2024 Abstract [facility] OB [address] [place] [address] [place] [address] [address] Pepper [place], [facility]11 Social History Tobacco Use Types [...] st Contact Info) Description 02/04/2025 Abstract [facility] OB [address] [place] [address] Cb Canales DO [facility] [place] [address] 02/12/2025 1:50 PM EDT Office Visit [facility] OB [facility] [place] [address] Maryanne Whiteside PA [address] [place], [place] [address] documented as of this encounter Visit Diagnoses Not on filedocumented in this encounter Care Teams Sap Portal Architect Relationship Specialty Start Date End Date David Awan MD [address] [place] [address] PCP - General Family Medicine 07/18/24 documented as of this encounter
--- OUTSIDE RECORDS SUMMARY | 2025-02-03 10:11 | XMS_ITS | Patient Health Record ---
Author Organization [employer] [facility] [employer] es Address [address] [place] [place] [address] Care Team Providers Care Insulation Board Calender Operator Name Role Phone Amanda Wilson Primary Care Provider Reason For Referral No Information Plan Of Treatment No Information Insurance Providers Payer Name Payer Address Payer Phone Subscriber Number Group Number Insured Name Patient Relationship to Insured Coverage Start Date Coverage End Date [facility] [address] [address] [place] [address] [id number] JIMBO DOE Self - patient is the insured 3
--- OUTSIDE RECORDS SUMMARY | 2025-02-03 10:11 | XMS_ITS | Clinical Summary ---
Author Organization [employer] [facility] tem Address [id number] [address] [place] [address] Care Team Providers Care Fire Tender Name Role Phone Unavailable Primary Care Provider [...] Description 01/04/2025 Orders Only Maternal- Medicine at [facility] [address] [place] [phone] Ref Prov, Not In System 01/04/2025 Abstract Maternal- Medicine at [facility] [address] [place] [address] Mike Lay MD from Last 3 Months [...] 9:32 AM EDT) Anatomical Region Laterality Modality OB-PRINT PRODUCTION COORDINATOR Ultrasound 01/18/2025 8:21 AM EDT Narrative 01/18/2025 10:30 AM EDT NAME: BROOK CHOI : 2005 SEX: F Accession Number: [id number] ORDERING PHYSICIAN: CB CANALES REFERRING PHYSICIAN: CB CANALES Coding ----- --------- Procedures 28819: Ultrasound, uterus, real time with image documentation, [...] EFW (oz) 14 oz EFW by: Hadlock ([id number]) Extended Tibia 56.1 mm 32w 6d 45% Tj Channel Process Plant Operator 2.0 mm Head / Face / [...] Heart / Thorax RVOT view. LVOT view. 7-aflkji-jvfdool view. Aortic arch view. Bicaval view. Ductal [...] CHOI : 2005 SEX: F Accession Number: [id number] ORDERING PHYSICIAN: CB CANALES REFERRING PHYSICIAN: CB CANALES Coding ----- --------- Procedures [id number]: Ultrasound, uterus, real time with imagedocumentation, and [...] EFW (oz) 14 oz EFW by: Hadlock ([id number]) Extended Tibia 56.1 mm 32w 6d 45% Tj Channel Process Plant Operator 2.0 mm Head / Face / [...] Heart / Thorax RVOT view. LVOT view. 3-abltup-afnvkip view. Aortic archview. Bicaval view. Ductal arch [...] period is included. Anatomical Region Laterality Modality OB-PRINT PRODUCTION COORDINATOR Ultrasound us Not In System Ref Prov IMG US ORDERABLES Final R esult * CBC without diff (11/30/2024) Hemoglobin 11.2 MANUALLY TRANSCRIBED RESULTS Hematocrit 34.0 MANUALLY TRANSCRIBED RESULTS Rbc Mcv (Fl) By Automated Count 84.0 MANUALLY TRANSCRIBED RESULTS Blood Venous blood / Unknown us Not In System Ref Prov LAB BLOOD ORDERABLES Jessica l Result MANUALLY TRANSCRIBED RESULTS from Last 3 Months Insurance [facility]
--- OUTSIDE RECORDS SUMMARY | 2025-02-03 10:11 | XMS_ITS | Encounter Summary ---
Author Organization [facility] Address [address] [place] [address] Care Team Providers Care Hand Kiss Setter Name Role Phone Hazel Grady MD Primary Care Provider [phone] Encounter Details Date Type Department Care Team (Late st Contact Info) Description 01/25/2025 Clinisync Result Encounter [facility] External Department Unsolicited Yogesh Canales DO [address] [place] [address] Jess Flynn, [facility]11 Social History Tobacco Use Types Packs/Day [...] st Contact Info) Description 02/04/2025 Abstract [facility] OB [facility] [place] [address] Yogesh Canales DO [address] [place], [place] [id number] 02/12/2025 1:50 PM EDT Office Visit [facility] OB [facility] [place] [address] Maryanne Whiteside PA [address] [place], [place] [address] documented as of this encounter Procedures Procedure Name Priority Date/Time Associated Diagnosis Comments US OB BPP W NON-STRESS 01/25/2025 3:01 PM EDT documented in this encounter Results * US OB BPP W NON-STRESS (01/25/2025 3:01 PM EDT) Anatomical Region Laterality Modality Other 01/25/2025 3:01 PM EDT Narrative 01/25/2025 3:04 [place] [address] Ultrasound Report Signed Patient: JIMBO DOE MR#: [id number] : 2005 Acct:[id number] Age/Sex: 19 / F ADM Date: 01/25/25 Loc: [facility] Attending Dr: Yogesh Canales D.O. Ordering Physician: Yogesh Canales D.O. Date of Service: 01/25/25 Procedure(s): US OB BPP w non-stress Accession Number(s): [id number] cc: Yogesh Canales D.O.; HAZEL GRADY [address] [address] Patient Name: JIMBO DOE MRN: [id number] date: 2005 Sex: F Assigned Patient Location: [facility] Current Patient Location: Accession/Order Number: [id number] Exam Date: 01/25/2025 14:59 Report Date: 01/25/2025 15:01 At the request of: YOGESH CANALES DO Procedure: US OB BPP w non-stress Biophysical profile. Reason for exam: Oligohydramnios. COMPARISON: BPP 01/24/2025. TECHNIQUE: Transabdominal imaging of the gravid uterus was obtained. FINDINGS: Parole Agent reports a BPP of 8 out of 8. JEROD is normal 11.4 cm. heart rate 159 bpm. US/US OB BPP w non-stress Impression: BPP 8 out of 8. Impression dictated by: Stanislav Francisco Jr., D.O. 01/25/2025 3:01 PM Dictation Location: [place] [address] Electronically authenticated by: [id number] Y Date: 01/25/2025 15:01 Dictated By: Stanislav Francisco M.D. Signed By: 01/25/25 1504 DD/ 1501 TD/TT: Expanded Function Dental Assistant: Procedure Note Radiology, Radiologist, MD - 01/25/2025 [place] [address] Ultrasound Report Signed Patient: JIMBO DOE RMR#: [id number] : 2005Acct:[id number] Age/Sex: 19 / FADM Date: 01/25/25 Loc: [facility] Attending Dr: Yogesh Canales D.O. Ordering Physician: Yogesh Canales D.O. Date of Service: 01/25/25 Procedure(s): US OB BPP w non-stress Accession Number(s): [id number] cc: Yogesh Canales D.O.; HAZEL GRADY The [place] [address] Patient Name: JIMBO DOE MRN: [id number] date: 2005 Sex: F Assigned Patient Location: [facility] Current Patient Location: Accession/Order Number: [id number] Exam Date: 01/25/2025 14:59 Report Date: 01/25/2025 15:01 At the request of: YOGESH CANALES DO Procedure: US OB BPP w non-stress Biophysical profile. Reason for exam: Oligohydramnios. COMPARISON: BPP 01/24/2025. TECHNIQUE: Transabdominal imaging of the gravid uterus was obtained. FINDINGS: Parole Agent reports a BPP of 8 out of 8. JEROD is normal 11.4 cm. heart rate 159 bpm. US/US OB BPP w non-stress Impression: BPP 8 out of 8. Impression dictated by: Stanislav Francisco Jr., D.O. 01/25/2025 3:01 PM Dictation Location: [place] [address] Electronically authenticated by: [id number] Y Date: 5:01 Dictated By: Stanislav Francisco M.D. Signed By:01/25/25 1504 DD/ 1501 TD/TT: Expanded Function Dental Assistant: us Yogesh Ally DO [facility] Final Result documented in this encounter Visit Diagnoses Not on filedocumented in this encounter Care Teams Hand Kiss Setter Relationship Specialty Start Date End Date Hazel Grady MD [address] [place] [address] PCP - General Family Medicine 07/18/24 documented as of this encounter
--- OUTSIDE RECORDS SUMMARY | 2025-02-03 10:11 | XMS_ITS | Encounter Summary ---
Author Organization [facility] Address [address] [place] [address] Care Team Providers Care Precast Concrete Products Installer Name Role Phone David Awan MD Primary Care Provider [phone] Encounter Details Date Type Department Care Team (Late st Contact Info) Description 07/18/2024 Abstract [facility] OB [address] [facility] [place] [address] [address] Pepper [place], [facility]11 Social History Tobacco Use Types [...] st Contact Info) Description 02/04/2025 Abstract [facility] OB [address] [place] [address] Cb Canales DO [facility] [place] [address] 02/12/2025 1:50 PM EDT Office Visit [facility] OB [facility] [place] [address] Maryanne Whiteside PA [address] [place], [place] [address] documented as of this encounter Visit Diagnoses Not on filedocumented in this encounter Care Teams Precast Concrete Products Installer Relationship Specialty Start Date End Date David Awan MD [address] [place] [address] PCP - General Family Medicine 07/18/24 documented as of this encounter
--- OUTSIDE RECORDS SUMMARY | 2025-02-03 10:11 | XMS_ITS | Encounter Summary ---
Author Organization [facility] [employer] [facility] tem Address [id number] [address] [place] [address] Care Team Providers Care Tunnel Man Name Role Phone Unavailable Primary Care Provider Unavailabl e Encounter Details Date Type Department Care Team (Late st Contact Info) Description 01/04/2025 Orders Only Maternal- Medicine at [facility] [address] [place] [address] Ref Prov, [place] [address] Social History Tobacco Use Types Packs/Day Years [...] 10:58 AM EDT) Anatomical Region Laterality Modality OB-CABLE TESTER Ultrasound us Not In System Ref Prov IMG US ORDERABLES Final R esult * Ultrasound limited 1 or more fetus (01/04/2025 10:56 AM EDT) Anatomical Region Laterality Modality OB-CABLE TESTER Ultrasound us Not In System Ref Prov IMG US ORDERABLES Final R esult * Ultrasound limited 1 or more fetus (01/04/2025 10:55 AM EDT) Anatomical Region Laterality Modality OB-CABLE TESTER Ultrasound us Not In System Ref Prov IMG US ORDERABLES Final R esult * Ultrasound limited 1 or more fetus (01/04/2025 10:54 AM EDT) Anatomical Region Laterality Modality OB-CABLE TESTER Ultrasound us Not In System Ref Prov IMG US ORDERABLES Final R esult * Ultrasound limited 1 or more fetus (01/04/2025 10:51 AM EDT) Anatomical Region Laterality Modality OB-CABLE TESTER Ultrasound us Not In System Ref Prov IMG US ORDERABLES Final R esult documented in this encounter Visit Diagnoses Not on filedocumented in this encounter
--- OUTSIDE RECORDS SUMMARY | 2025-02-03 10:11 | XMS_ITS | Encounter Summary ---
Author Organization [facility] Address [address] [place] [address] Care Team Providers Care Reinforced Steel Placing Supervisor Name Role Phone Hazel Grady MD Primary Care Provider [phone] Encounter Details Date Type Department Care Team (Late st Contact Info) Description 07/19/2024 Clinisync Result Encounter [facility] External Department Unsolicited Yogesh Canales DO [address] [place] [address] Jess Flynn, [facility]11 Social History Tobacco Use Types Packs/Day [...] st Contact Info) Description 02/04/2025 Abstract [facility] OB [facility] [place] [address] Yogesh Canales DO [address] [place], [place] [address] 02/12/2025 1:50 PM EDT Office Visit [facility] OB [facility] [place] [address] Maryanne Whiteside PA [facility] [address] [place], [place] [address] documented as of this encounter Procedures Procedure Name Priority Date/Time Associated Diagnosis Comments US OB TRANSVAGINAL 07/19/2024 4: 28 AM EST documented in this encounter Results * US OB TRANSVAGINAL (07/19/2024 4:28 AM EST) Anatomical Region Laterality Modality Other 07/19/2024 4:28 AM EST Narrative 07/19/2024 4:31 [place] [address] Ultrasound Report Signed Patient: FRANCES DOE MR#: [id number] : 2005 Acct:[id number] Age/Sex: 18 / F ADM Date: 07/18/24 Loc: [facility] Attending Dr: Yogesh Canales D.O. Ordering Physician: Yogesh Canales D.O. Date of Service: 07/18/24 Procedure(s): US OB transvaginal Accession Number(s): [id number] cc: Yogesh Canales D.O.; HAZEL GRADY [address] [address] Patient Name: FRANCES DOE MRN: [id number] date: 2005 Sex: F Assigned Patient Location: [facility] Current Patient Location: Accession/Order Number: [id number] Exam Date: 07/18/2024 10:06 Report Date: 07/19/2024 [...] M.D. Signed By: 07/19/241 DD/ 7 TD/TT: Edger Tailer: Procedure Note Radiology, Radiologist, MD - 07/19/2024 [place] [address] Ultrasound Report Signed Patient: FRANCES DOE RMR#: [id number] : 2005Acct:[id number] Age/Sex: 18 FADM Date: 07/18/24 Loc: [facility] Attending Dr: Yogesh Canales D.O. Ordering Physician: Yogesh Canales D.O. Date of Service: 07/18/24 Procedure(s): US OB transvaginal Accession Number(s): [id number] cc: Yogesh Canales D.O.; HAZEL GRDAY The [place] [address] Patient Name: FRANCES DOE MRN: [id number] date: 2005 Sex: F Assigned Patient Location: [facility] Current Patient Location: Accession/Order Number: [id number] Exam Date: 07/18/2024 10:06 Report Date: 07/19/2024 [...] M.D. Signed By:07/19/24 0431 DD/ 0428 TD/TT: Edger Tailer: us Yogesh Ally DO [facility] Final Result documented in this encounter Visit Diagnoses Not on filedocumented in this encounter Care Teams Reinforced Steel Placing Supervisor Relationship Specialty Start Date End Date Hazel Grady MD [address] [place] [address] PCP - General Family Medicine 07/18/24 documented as of this encounter
--- OUTSIDE RECORDS SUMMARY | 2025-02-03 10:11 | XMS_ITS | Encounter Summary ---
Author Organization [facility] Address [address] [place] [address] Care Team Providers Care Transplant Surgeon Name Role Phone David Awan MD Primary Care Provider [phone] Encounter Details Date Type Department Care Team (Late st Contact Info) Description 01/25/2025 Bamboo flowsheet [facility] OB [address] [facility] [place] [address] Cb Canales DO [address] [place] [address] Dr Pepper [place], [facility]11 Social History Tobacco Use Types Packs/Day Years [...] st Contact Info) Description 02/04/2025 Abstract [facility] OB [address] [place] [address] Cb Canales DO [facility] [address] [place], [place] [address] 02/12/2025 1:50 PM EDT Office Visit [facility] OB [facility] [place] [address] Maryanne Whiteside PA [address] [place] [address] [place] [address] documented as of this encounter Visit Diagnoses Not on filedocumented in this encounter Care Teams Transplant Surgeon Relationship Specialty Start Date End Date Daivd Awan MD [address] [place] [address] PCP - General Family Medicine 07/18/24 documented as of this encounter
--- OUTSIDE RECORDS SUMMARY | 2025-02-03 10:11 | XMS_ITS | Clinical Summary ---
Author Organization [facility] Address [address] [place] [address] Care Team Providers Care Neurological Surgeon Name Role Phone Hazel Grady MD Primary Care Provider [phone] Allergies Active Allergy Reactions Criticality Noted Date Comments Amoxicillin Rash Low 2003 Medications sertraline (Zoloft) 50 MG tablet Take 50 mg by mouth at bedtime 04/05/2024 Active promethazine (Phenergan) 12.5 MG tabletIndicatio ns: headache, antepartum ([facility]) Take 1 tablet (12.5 mg) by [...] 8:50 AM EDT Routine [facility] [address] [place] [address] [place] [address] Maryanne Whiteside PA 35 weeks gestation of ([facility]); Third trimester ([facility]); Pruritus; Oligohydramnios in third trimester, fetus 1 of multiple gestation ([facility]); SGA (small for gestational age) ([facility]); headache in third trimester ([facility]) 02/01/2025 Clinisync Result Encounter [facility] External Department Unsolicited Yogesh Canales, DO 02/01/2025 Bamboo flowsheet [facility] [address] [place] [address] Maryanne Whiteside PA 01/31/2025 Abstract [facility] [address] [place] [address] Yogesh Canales, DO 01/31/2025 Clinisync Result Encounter NOMS External Department Unsolicited Yogesh Canales, DO 01/25/2025 8:40 AM EDT Routine [facility] [address] [place] [address] Yogesh Canales, DO Third trimester ([facility]); 34 weeks gestation of ([facility]) 01/25/2025 Clinisync Result Encounter [facility] External Department Unsolicited Yogesh Canales, DO 01/25/2025 Bamboo flowsheet [facility] [address] [place] [address] Yogesh Canales, DO 01/24/2025 Clinisync Result Encounter [facility]OMS External Department Unsolicited Yogesh Canales, DO 01/18/[address] [facility] [address] [place] [address] Zita Jade MA 01/18/2025 External Result Encounter [facility] OB [address] [place] [address] [place] [address] Yogesh Canales, DO 01/17/2025 Clinisync Result Encounter [facility] External Department Unsolicited Yogesh Canales, DO 01/11/2025 1:30 PM EDT Routine [facility] OB [address] [place] [address] [place] [address] Maryanne Whiteside PA Third trimester ([facility]); 32 weeks gestation of ([facility]); Pruritus 01/11/2025 Clinisync Result Encounter [facility]OM[facility] External Department Unsolicited Maryanne Whiteside PA 01/11/2025 Bamboo flowsheet [facility] OB [address] [place] [address] Maryanne Whiteside PA 01/10/2025 Clinisync Result Encounter [facility]OM[facility] External Department Unsolicited Ally, Yogesh, DO 01/06/2025 Clinisync Result Encounter [facility] External Department Unsolicited Ally, Yogesh, DO 01/03/2025 Clinisync Result Encounter [facility]OM[facility] External Department Unsolicited Ally, Yogesh, DO 12/28/2024 9:50 AM EDT Routine [facility] OB [address] [place] [address] Yogesh Canales, DO 30 weeks gestation of ([facility]); Third trimester ([facility]); Oligohydramnios in third trimester, fetus 1 of multiple gestation ([facility]) 12/28/2024 9:00 AM EDT Ancillary Procedure [facility] OB [address] [place] [address] size inconsistent with dates ([facility]) 12/16/2024 Clinisync Result Encounter [facility] External Department Unsolicited Yogesh Canales, DO 12/15/2024 Clinisync Result Encounter [facility]OM[facility] External Department Unsolicited AllyYogesh noyola, DO 12/06/2024 1:20 PM EDT Routine [facility] OB [address] [place] [address] Lynette Gunter NP size inconsistent with dates ([facility]) (Primary Dx); 27 weeks gestation of ([facility]); Second trimester ([facility]) 12/06/2024 Travel 12/06/2024 Bamboo flowsheet [facility] OB [address] [place] [address] Lynette Gunter NP 11/30/2024 Clinisync Result Encounter [facility]OM[facility] External Department Unsolicited Yogesh Canales, DO 11/15/2024 10:50 AM EDT Routine [facility] [address] [place] [address] Yogesh Canales DO 24 weeks gestation of ([facility]); Second trimester ([facility]); Diabetes mellitus screening 11/15/2024 10:00 AM EDT Ancillary Procedure [facility] [address] [place] [address] Encounter for follow-up ultrasound of anatomy ([facility]) from Last 3 Months Social History Tobacco [...] st Contact Info) Description 02/04/[address] [facility] [address] [place] [address] Yogesh Canales DO [address] [place] [address] [address] [place], [place] [id number] 02/12/2025 1:50 PM EDT Office Visit [facility] [address] [place] [address] Maryanne Whiteside PA [address] [place] [address] [place], [place] [id number] Procedures Procedure Name Priority Date/Time Associated Diagnosis Comments TBH TOTAL PROTEIN 24 HOUR URINE Routine 02/01/2025 11:30 AM EDT POCT URINALYSIS DIPSTICK Routine 02/01/2025 9:19 AM EDT 35 weeks gestation of ([facility]) Third trimester ([facility]) Pruritus Oligohydramnios in third trimester, fetus 1 of multiple gestation ([facility]) MHPT FIBRINOGEN Routine 01/31/2025 11:36 AM EDT [...] Routine 01/25/2025 9:22 AM EDT Third trimester ([facility]) US OB BPP W NON-STRESS 01/24/2025 10:38 [...] 10:23 AM EDT 30 weeks gestation of ([facility]) US OB FOLLOW UP TRANSABDOMINAL APPROACH Routine 12/28/2024 9:43 AM EDT size inconsistent with dates ([facility]) TBH URINE T PROTEIN CREAT RATIO Routine 12/16/2024 1:30 PM EDT CCF LIPASE Routine 12/16/2024 12:41 PM EDT ALL AMYLASE Routine 12/16/2024 12:41 PM EDT CCF CMP (CMP) (FOR REMOTE [facility] USE) Routine 12/16/2024 12:41 PM EDT ALL CBC WITH AUTO DIFF Routine 12:41 PM EDT ALL URIC ACID Routine 12/16/2024 12:30 AM EDT CCF LIPASE Routine 12/16/2024 12:30 AM EDT ALL AMYLASE Routine 12/16/2024 12:30 AM EDT CCF CMP (CMP) (FOR REMOTE [facility] USE) Routine 12/16/2024 12:30 AM EDT ALL CBC WITH AUTO DIFF Routine 12:30 AM EDT TBH URINE MICROSCOPIC ONLY Routine 12/15/2024 11:00 PM EDT TBH UA (CLEAN/CATCH) COMMERCIAL CENTER MANAGER/MICRO IF IND. Routine 12/15/2024 11:00 PM EDT POCT URINALYSIS DIPSTICK Routine 12/06/2024 1:28 PM EDT 27 weeks gestation of ([facility]) Second trimester ([facility]) GLUCOSE 1 HOUR Routine 11/30/2024 2:12 PM EDT ALL CBC WITH AUTO DIFF Routine 2:12 PM EDT POCT URINALYSIS DIPSTICK Routine 11/15/2024 10:42 AM EDT 24 weeks gestation of ([facility]) Second trimester ([facility]) US OB LIMITED 1+ FETUSES Routine 11/15/2024 10:24 AM EDT Encounter for follow-up ultrasound of anatomy ([facility]) from Last 3 Months Results * (ABNORMAL) TBH TOTAL PROTEIN 24 HOUR URINE (02/01/2025 11:30 AM EDT) TOTAL PROTEIN URINE RANDOM 12.1(H) <=11.9 mg/dL TB TOTAL VOLUME 24 HOUR URINE 1,300 mL/24hr TB TB TOTAL PROTEIN 24 HOUR URINE 157.3(H) <=149.1 mg/24hr TB 02/01/2025 11:3 0 AM EDT 02/01/2025 11:45 AM EDT Narrative CLINISYNC - 02/01/2025 2:03 PM EDT Yogesh Canales DO CLINISYNC Final Result [facility]NC [facility] * (ABNORMAL) POCT urinalysis dipstick manually resulted [...] ENTER/EDIT OR DERABLES Final Result * (ABNORMAL) TB CREATININE (01/31/2025 11:36 AM EDT) CREATININE 0.46(L) 0.55 - 1.02 mg/dL TB TB EGFR-AF SYRIAN >60 >=60 mL/min/1.7 3m 2 TBH TBH EGFR-NON AF SYRIAN >60 >=60 mL/min/1.7 3m 2 TB 01/31/2025 11:3 6 AM EDT 01/31/2025 11:41 AM EDT Narrative CLINISYNC - 01/31/2025 12:02 PM EDT Yogesh Ally DO CLINISYNC Final Result [facility] * SRMCOH PROTHROMBIN TIME INR W/O COUM (01/31/2025 11:36 AM EDT) PROTHROMBIN TIME 9.8 9.0 - 11.6 sec TBH TBH INR <0.93 TBH Comment: DESIRED INR: 2.0-3.0 CONDITIONS NOT LISTED BELOW 2.5-3.5 FOR PROSTHETIC HEART VALVE REPLACEMENT 2.5-3.5 RECURRENT THROMBOSIS 01/31/2025 11:3 6 AM EDT 01/31/2025 11:41 AM EDT Narrative CLINISYNC - 01/31/2025 12:22 PM EDT [employer] DO CLINISYNC Final Result Performing Organization Address City/[facility]/ZIP Co de Phone Number [place] [facility] * (ABNORMAL) MHPT FIBRINOGEN (01/31/2025 11:36 AM EDT) FIBRINOGEN 469(H) 200 - 400 mg/dL TB 01/31/2025 11:3 6 AM EDT 01/31/2025 11:41 AM EDT Narrative CLINISYNC - 01/31/2025 12:22 PM EDT Yogeshcami Herrerao DO CLINISYNC Final Result Performing Organization Address City/[facility]/ZIP Co de Phone Number [facility] * (ABNORMAL) CCF AST (01/31/2025 11:36 AM EDT) ASPARTATE AMINO TRANSFERASE 11(L) 15 - 37 U/L TB 01/31/2025 11:3 6 AM EDT 01/31/2025 11:41 AM EDT Narrative CLINISYNC - 01/31/2025 12:02 PM EDT Yogesh Ally DO CLINISYNC Final Result Performing Organization Address [facility]/State/ZIP Co de Phone Number [facility] * CCF APTT (01/31/2025 11:36 AM EDT) PARTIAL THROMBOPLASTIN TIME 26.7 22.3 - 36.2 sec TB 01/31/2025 11:3 6 AM EDT 01/31/2025 11:41 AM EDT Narrative CLINISYNC - 01/31/2025 12:22 PM EDT Yogesh Ally DO CLINISYNC Final Result Performing Organization Address [facility]/ZIP Co de Phone Number [facility] * (ABNORMAL) CCF ALT (01/31/2025 11:36 AM EDT) ALANINE AMINOTRANSFERASE 13(L) 14 - 59 U/L TB 01/31/2025 11:3 6 AM EDT 01/31/2025 11:41 AM EDT Narrative CLINISYNC - 01/31/2025 12:02 PM EDT Yogesh Ally DO CLINISYNC Final Result Performing Organization Address [facility]/ZIP Co de Phone Number [facility] * ALL URIC ACID (01/31/2025 11:36 AM EDT) Only the most recent of2 resultswithin the time period is included. URIC ACID 3.7 2.6 - 6.0 mg/dL TB 01/31/2025 11:3 6 AM EDT 01/31/2025 11:41 AM EDT Narrative CLINISYNC - 01/31/2025 12:02 PM EDT Yogesh Ally DO CLINISYNC Final Result [facility] * (ABNORMAL) ALL CBC WITH AUTO [...] CLINISYNC Final Result CLINISYNC TBH * (ABNORMAL) ALL BUN (01/31/2025 11:36 AM EDT) BLOOD UREA NITROGEN 5.0(L) 7.0 - 18.0 mg/dL TBH 01/31/2025 11:3 6 AM EDT 01/31/2025 11:41 AM EDT Narrative CLINISYNC - 01/31/2025 12:02 PM EDT Yogesh Ally DO CLINISYNC Final Result Performing Organization Address City/[facility]/ZIP Co de Phone Number CLINISYNC TB * TBH URINE T PROTEIN [...] EDT Yogesh Ally DO CLINISYNC Final Result [facility]INIKENC TB * US OB BPP W NON-STRESS (01/31/2025 11:08 AM EDT) Only the most recent of6 resultswithin the time period is included. Anatomical Region Laterality Modality Other 01/31/2025 11:0 8 AM EDT Narrative 01/31/2025 11:11 [place] [address] Ultrasound Report Signed Patient: FRANCES DOE MR#: [id number] : 2005 Acct:[id number] Age/Sex: 19 / F ADM Date: 01/31/25 Loc: [facility] 254-[address]: Yogesh Canales D.O. Ordering Physician: Yogesh Canales D.O. Date of Service: 01/31/25 Procedure(s): US OB BPP w non-stress Accession Number(s): [id number] cc: Yogesh Canales D.O.; HAZEL GRADY [place] [address] Patient Name: FRANCES DOE MRN: [id number] date: 2005 Sex: F Assigned Patient Location: [facility] Current Patient Location: [facility] Accession/Order Number: [id number] Exam Date: 01/31/2025 11:05 Report Date: 01/31/2025 11:08 At the request of: YOGESH CANALES DO Procedure: US OB BPP w non-stress BIOPHYSICAL PROFILE: CLINICAL INFORMATION: Oligohydramnios COMPARISON: 01/25/2025 There is a single live intrauterine gestation in cephalic presentation. The reported gestational age is 35 weeks 4 days. The heart rate [id number] beats per minute. FINDINGS: TONE: 1 or [...] Nascimento M.D. 01/31/2025 11:08 AM Dictation Location: [place] [address] Electronically authenticated by: [id number] Y Date: 01/31/2025 11:08 Dictated By: Aparna Nascimento M.D. Signed By: 01/31/25 1111 DD/ 1108 TD/TT: Working Foreman: Procedure Note Radiology, Radiologist, - 01/31/2025 [place] [address] Ultrasound Report Signed Patient: FRANCES DOE RMR#: [id number] : 2005Acct:[id number] Age/Sex: 19 / FADM Date: 01/31/25 Loc: [facility] 254-[address]: Yogesh Canales D.O. Ordering Physician: Yogesh Canales D.O. Date of Service: 01/31/25 Procedure(s): US OB BPP w non-stress Accession Number(s): [id number] cc: Yogesh Canales D.O.; HAZEL GRADY [place] [address] Patient Name: FRANCES DOE MRN: [id number] date: 2005 Sex: F Assigned Patient Location: [facility] Current Patient Location: [facility] Accession/Order Number: [id number] Exam Date: 01/31/2025 11:05 Report Date: 01/31/2025 11:08 At the request of: YOGESH CANALES DO Procedure: US OB BPP w non-stress BIOPHYSICAL PROFILE: CLINICAL INFORMATION: Oligohydramnios COMPARISON: 01/25/2025 There is a single live intrauterine gestation in cephalic presentation.The reported gestational age is 35 weeks 4 days. The heart beats per minute. FINDINGS: TONE: 1 or [...] Nascimento M.D. 01/31/2025 11:08 AM Dictation Location: [place] [address] Electronically authenticated by: [id number] Y Date: 1:08 Dictated By: Aparna Nascimento M.D. Signed By:01/31/25 1111 DD/ 1108 TD/TT: Working Foreman: us Yogesh Canales DO CLINISYNC IMAGING Final Result * US OB 14+ weeks anatomy scan (01/18/2025 10:30 AM EDT) Anatomical Region Laterality Modality Body Ultrasound 01/18/2025 10:3 0 AM EDT Narrative 01/18/2025 10:30 AM EDT THIS EXAM WAS PERFORMED AT [facility] NAME: BROOK CHOI : 2005 SEX: F Accession Number: [id number] ORDERING PHYSICIAN: YOGESH CANALES REFERRING PHYSICIAN: YOGESH CANALES Coding ----- --------- Procedures 94686: Ultrasound, uterus, real time with image documentation, [...] EFW (oz) 14 oz EFW by: Hadlock ([id number]) Extended Tibia 56.1 mm 32w 6d 45% Tj Audit Mgr 2.0 mm Head / Face / Neck [...] Heart / Thorax RVOT view. LVOT view. 9-vjcddp-ljhrcme view. Aortic arch view. Bicaval view. Ductal [...] AT [facility] NAME: BROOK CHOI : 2005 SEX: F Accession Number: [id number] ORDERING PHYSICIAN: YOGESH CANALES REFERRING PHYSICIAN: YOGESH CANALES Coding ----- --------- Procedures [id number]: Ultrasound, uterus, real time with imagedocumentation, and [...] EFW (oz) 14 oz EFW by: Hadlock ([id number]) Extended Tibia 56.1 mm 32w 6d 45% Tj Audit Mgr 2.0 mm Head / Face / Neck [...] Heart / Thorax RVOT view. LVOT view. 6-ydglji-nkazwsu view. Aortic archview. Bicaval view. Ductal arch [...] byprimary OB provider unless otherwise specified by [facility]. Results forwarded to ordering provider so they can follow up with thepatient as necessary. us Yogesh Canales DO [facility] OB US PROCEDURES Final Resul t * (ABNORMAL) [facility] LIVER PANEL (01/11/2025 2:14 PM EDT) BILIRUBIN [...] Maryanne HER Final Result Performing Organization Address [facility] Co de Phone Number CLINISYKS TB * CCF BILE ACIDS FRACT BLD (01/11/2025 2:14 PM EDT) BILE ACIDS 1.6 0.0 - 10.0 umol/L TBH Comment: Performed at: [address] [id number] Strapping Machine Operator: Mac Chawla MD, Phone: [phone] 01/11/2025 2:14 PM EDT 01/11/2025 2:18 PM EDT Narrative CLINISYNC - 01/12/2025 3:09 PM EDT us Maryanne HER Final Result [facility]IN[facility]KS TB * ALL THYROID STIM HORMONE (01/11/2025 2:14 PM EDT) THYROID STIMULATING HORMONE 0.457 0.358 - 3.740 uIU/mL TBH 01/11/2025 2:14 PM EDT 01/11/2025 2:18 PM EDT Narrative CLINISYNC - 01/11/2025 3:18 PM EDT us Maryanne FOWLER CLINISYNC Final Result Performing Organization Address [facility] de Phone Number [facility] * ALL HEPATITIS C AB (01/11/2025 2:14 PM EDT) [facility] HCV ANTIBODY Non Reactive Non Reactive [facility] Comment: HCV antibody alone does not differentiate between previously resolved infection and active infection. Equivocal and Reactive HCV antibody results should be followed up with an HCV RNA test to support the diagnosis of active HCV infection. Performed at: [facility] [id number] Strapping Machine Operator: Porter Kamara PhD, Phone: [phone] 01/11/2025 2:14 PM EDT 01/11/2025 2:18 PM EDT Narrative [place] - 01/12/2025 5:07 AM EDT us Maryanne CALDERAISYNC Final Result Performing Organization Address [facility] de Phone Number [facility] * AMNISURE (01/06/2025 11:15 AM EDT) [facility] AMNISURE NEGATIVE NEGATIVE [facility] 01/06/2025 11:1 5 AM EDT 01/06/2025 11:29 AM EDT Narrative [place] - 01/06/2025 11:41 AM EDT us Yogesh Ally DO LAB BLOOD ORDERABLES Final Resul t Performing Organization Address [facility] de Phone Number [facility] * US OB follow up transabdominal [...] MD, PHD at 29-Dec-2024 12:17:39 PM [facility] Procedure Note Dorothy Duckworth MD - [...] signed by DOROTHY DUCKWORTH II, MD, PHD [id number] 12:17:39 PM [facility] Lynette Gunter LENDING CONSULTANT IMG OB US PROCEDURES Final Re sult * (ABNORMAL) CCF LIPASE (12/16/2024 12:41 PM EDT) Only the most recent of2 resultswithin the time period is included. LIPASE 15.0(L) 16.0 - 77.0 U/L TBH 12/16/2024 12:4 1 PM EDT 12/16/2024 12:44 PM EDT Narrative CLINISYNC - 12/16/2024 1:22 PM EDT us Yogesh Herrerao DO CLINISYNC Final Result CLINISYNC TBH * (ABNORMAL) CCF CMP (CMP) (FOR REMOTE [facility] USE) (12/16/2024 12:41 PM EDT) Only the [...] 0.55 - 1.02 mg/dL TBH TBH EGFR-AF SYRIAN >60 >=60 mL/min/1. 73m 2 TBH TBH EGFR-NON AF SYRIAN >60 >=60 mL/min/1. 73m 2 TBH BUN [...] us Yogesh Ally DO CLINISYNC Final Result [facility] * ALL AMYLASE (12/16/2024 12:41 PM EDT) Only the most recent of2 resultswithin the time period is included. AMYLASE 36 25 - 115 U/L TB 12/16/2024 12:4 1 PM EDT 12/16/2024 12:44 PM EDT Narrative CLINISYNC - 12/16/2024 1:22 PM EDT us Yogesh Ally DO CL[facility]IS[facility]NC Final Result [facility] * (ABNORMAL) TBH URINE MICROSCOPIC [...] CLINISYNC TBH * (ABNORMAL) TBH UA (CLEAN/CATCH) COMMERCIAL CENTER MANAGER/MICRO IF IND. (12/15/2024 11:00 PM EDT) [...] DO CLINISYNC Final Result Performing Organization Address City/[facility]/ZIP Co de Phone Number CLINISYNC TBH [...] II, MD, PHD at 17-Nov-2024 06:24:10 AM [facility] Procedure Note Dorothy Duckworth MD - [...] signed by DOROTHY DUCKWORTH II, MD, PHD [id number] 06:24:10 AM [facility] us Yogesh Canales DO IMG OB US PROCEDURES Final Resul t from Last 3 Months Insurance [facility] Care Teams Neurological Surgeon Relationship Specialty Start Date End Date Hazel Grady MD [address] [place] [address] PCP - General Family Medicine 07/18/24
--- OUTSIDE RECORDS SUMMARY | 2025-02-03 10:11 | XMS_ITS | Encounter Summary ---
Author Organization [facility] Synference [facility] tem Address [id number] [address] [place] [address] Care Team Providers Care Snuff Box Finisher Name Role Phone Unavailable Primary Care Provider Unavailabl e Encounter Details Date Type Department Care Team (Late st Contact Info) Description 01/04/2025 Abstract Maternal- Medicine at [facility] [address] [place] [phone] Mike Lay MD [address] [facility] [address] [place] [address] Social History Tobacco Use Types Packs/Day Years [...] ORDERABLES Jessica l Result Performing Organization Address [facility] Co de Phone Number MANUALLY TRANSCRIBED RESULTS * Rubella IGG immune status (08/05/2024) Rubella immune IgG immune MANUALLY TRANSCRIBED RESULTS Blood Venous blood / Unknown us Not In System Ref Prov LAB BLOOD ORDERABLES Jessica l Result Performing Organization Address [facility] Co de Phone Number MANUALLY TRANSCRIBED RESULTS * Syphilis Total (Unknown Syphilis Status) (08/05/2024) Syphilis non reactive MANUALL Y TRANSCRIBED RESULTS Blood Venous blood / Unknown us Not In System Ref Prov LAB BLOOD ORDERABLES Jessica l Result MANUALLY TRANSCRIBED RESULTS documented in this encounter Visit Diagnoses Not on filedocumented in this encounter
--- OUTSIDE RECORDS SUMMARY | 2025-02-03 10:11 | XMS_ITS | Encounter Summary ---
Author Organization [facility] Address [address] [place] [address] Care Team Providers Care Railroad Detective Name Role Phone David Awan MD Primary Care Provider [phone] Encounter Details Date Type Department Care Team (Late st Contact Info) Description 01/18/2025 External Result Encounter [facility] OB [address] [place] [address] Yogesh Canales DO [facility] Antonio [place], [facility]11 Social History Tobacco Use Types Packs/Day [...] 02/04/2025 Abstract [facility] OB [address] [place] [address] Yogesh Canales DO [facility] [place] [address] 02/12/2025 1:50 PM EDT Office Visit [facility] OB [address] [place] [address] Maryanne Whiteside PA [address] [place] [address] [place] [address] documented as of this encounter Procedures Procedure Name Priority Date/Time Associated Diagnosis Comments US OB 14+ WEEKS ANATOMY SCAN 01/18/2025 10:30 AM EDT documented in this encounter Results * US OB 14+ weeks anatomy scan (01/18/2025 10:30 AM EDT) Anatomical Region Laterality Modality Body Ultrasound 01/18/2025 10:3 0 AM EDT Narrative 01/18/2025 10:30 AM EDT THIS EXAM WAS PERFORMED AT [facility] NAME: BROOK CHOI : 2005 SEX: F Accession Number: [id number] ORDERING PHYSICIAN: YOGESH CANALES REFERRING PHYSICIAN: YOGESH CANALES Coding ----- --------- Procedures 13446: Ultrasound, uterus, real time with image documentation, [...] EFW (oz) 14 oz EFW by: Hadlock (EIJ-CX-QL-FL) Extended Tibia 56.1 mm 32w 6d 45% Tj Construction Scheduler 2.0 mm Head / Face / Neck [...] Heart / Thorax RVOT view. LVOT view. 1-luinsc-giqegae view. Aortic arch view. Bicaval view. Ductal [...] - 01/18/2025 THIS EXAM WAS PERFORMED AT [facility] NAME: BROOK CHOI : 2005 SEX: F Accession Number: [id number] ORDERING PHYSICIAN: YOGESH CANALES REFERRING PHYSICIAN: YOGESH CANALES Coding ----- --------- Procedures 70197: Ultrasound, uterus, real time with imagedocumentation, and [...] EFW (oz) 14 oz EFW by: Hadlock (SPS-XD-RP-FL) Extended Tibia 56.1 mm 32w 6d 45% Tj Construction Scheduler 2.0 mm Head / Face / Neck [...] Heart / Thorax RVOT view. LVOT view. 5-dchvef-deiigei view. Aortic archview. Bicaval view. Ductal arch [...] on filedocumented in this encounter Care Teams Railroad Detective Relationship Specialty Start Date End Date David Awan MD [address] [place] [address] PCP - General Family Medicine 07/18/24 documented as of this encounter
--- OUTSIDE RECORDS SUMMARY | 2025-02-03 10:11 | XMS_ITS | Encounter Summary ---
Author Organization [facility] Address [address] [place] [address] Care Team Providers Care Product Marketing Executive Name Role Phone David Awan MD Primary Care Provider [phone] Encounter Details Date Type Department Care Team (Late st Contact Info) Description 01/18/2025 Abstract [facility] [address] [place] [address] Zita Jade [...] (Late st Contact Info) Description 02/04/2025 Abstract [facility] [address] [place] [address] Cb Canales DO [address] [place] [address] Dr Pepper [place], [id number] 02/12/2025 1:50 PM EDT Office Visit [facility] [address] [place] [address] Maryanne Whiteside PA [address] [facility] [place] [address] documented as of this encounter Visit Diagnoses Not on filedocumented in this encounter Care Teams Product Marketing Executive Relationship Specialty Start Date End Date David Awan MD [address] [place] [address] PCP - General Family Medicine 07/18/24 documented as of this encounter
--- OUTSIDE RECORDS SUMMARY | 2025-02-03 10:11 | XMS_ITS | Encounter Summary ---
Author Organization [facility] Address [address] [place] [address] Care Team Providers Care Business Services Manager Name Role Phone David Awan MD Primary Care Provider [phone] Encounter Details Date Type Department Care Team (Late st Contact Info) Description 02/01/2025 Clinisync Result Encounter [facility] External Department Unsolicited Cb Canales DO [address] [place] [address] Jess [place], [facility]11 Social History Tobacco Use Types Packs/Day Years [...] st Contact Info) Description 02/04/2025 Abstract [facility] OB [facility] [place] [address] Cb Canales DO [address] [place], [place] [id number] 02/12/2025 1:50 PM EDT Office Visit [facility] OB [facility] [place] [address] Maryanne Whiteside PA [address] [place], [place] [address] documented as of this encounter Procedures Procedure [...] Cb Ally DO [facility] Final Result [facility] documented in this encounter Visit Diagnoses Not on filedocumented in this encounter Care Teams Business Services Manager Relationship Specialty Start Date End Date David Awan MD [address] [place] [address] PCP - General Family Medicine 07/18/24 documented as of this encounter
--- OUTSIDE RECORDS SUMMARY | 2025-02-03 10:11 | XMS_ITS | Encounter Summary ---
Author Organization [facility] Address [address] [place] [address] Care Team Providers Care Consultant Nurse Name Role Phone David Awan MD Primary Care Provider [phone] Encounter Details Date Type Department Care Team (Late st Contact Info) Description 01/31/2025 Abstract [facility] OB [address] [place] [address] [place] [address] Pepper [place], [facility]11 Social History Tobacco Use Types [...] st Contact Info) Description 02/04/2025 Abstract [facility] OB [address] [place] [address] Cb Canales DO [facility] [place] [address] 02/12/2025 1:50 PM EDT Office Visit [facility] OB [facility] [place] [address] Maryanne Whiteside PA [address] [place], [place] [address] documented as of this encounter Visit Diagnoses Not on filedocumented in this encounter Care Teams Consultant Nurse Relationship Specialty Start Date End Date David Awan MD [address] [place] [address] PCP - General Family Medicine 07/18/24 documented as of this encounter
--- OUTSIDE RECORDS SUMMARY | 2025-02-03 10:11 | XMS_ITS | Encounter Summary ---
Author Organization [facility] Address [address] [place] [address] Care Team Providers Care Beet Topper Name Role Phone David Awan MD Primary Care Provider [phone] Encounter Details Date Type Department Care Team (Late st Contact Info) Description 02/01/2025 Bamboo flowsheet [facility] OB [address] [facility] [place] [address] Maryanne Whiteside, PA [address] [place] [address] Dr [place], [facility]11 Social History Tobacco [...] st Contact Info) Description 02/04/2025 Abstract [facility] OB [address] [facility] [place] [address] Cb Canales DO [address] [place], [place] [address]Georgia [place], [facility]11 02/12/2025 1:50 PM EDT Office Visit [facility] OB [address] [place], [place] [address] [address] MieshaMaryanne wilks PA [address] [place] [address] [place] [address] documented as of this encounter Visit Diagnoses Not on filedocumented in this encounter Care Teams Beet Topper Relationship Specialty Start Date End Date David Awan MD [address] [place] [address] PCP - General Family Medicine 07/18/24 documented as of this encounter
--- OUTSIDE RECORDS SUMMARY | 2025-02-03 10:12 | XMS_ITS | Encounter Summary ---
Author Organization [facility] Address [address] [place] [address] Care Team Providers Care Pot Fisher Name Role Phone Hazel Grady MD Primary Care Provider [phone] Encounter Details Date Type Department Care Team (Late st Contact Info) Description 01/31/2025 Clinisync Result Encounter [facility] External Department Unsolicited Yogesh Canales DO [address] [place] [address] Jess Flynn, [facility]11 Social History Tobacco Use Types Packs/Day Years [...] st Contact Info) Description 02/04/2025 Abstract [facility] OB [facility] [place] [address] Yogesh Canales DO [address] [place], [place] [address] 02/12/2025 1:50 PM EDT Office Visit [facility] OB [facility] [place] [address] Maryanne Whiteside PA [address] [place], [place] [address] documented as of this encounter Procedures Procedure [...] Performing Organization Address City/[facility] Co de Phone Number [facility] * SRMCOH PROTHROMBIN TIME INR W/O COUM (01/31/2025 11:36 AM EDT) PROTHROMBIN TIME 9.8 9.0 - 11.6 sec TBH TBH INR <0.93 TBH Comment: DESIRED INR: 2.0-3.0 CONDITIONS NOT LISTED BELOW 2.5-3.5 FOR PROSTHETIC HEART VALVE REPLACEMENT 2.5-3.5 RECURRENT THROMBOSIS 01/31/2025 11:3 6 AM EDT 01/31/2025 11:41 AM EDT Narrative [facility] - 01/31/2025 12:22 PM EDT Aupix Ally DO [facility] Final Result Performing Organization Address [facility] Co de Phone Number [facility] TB * (ABNORMAL) CCF ALT (01/31/2025 11:36 AM EDT) ALANINE AMINOTRANSFERASE 13(L) 14 - 59 U/L TBH 01/31/2025 11:3 6 AM EDT 01/31/2025 11:41 AM EDT Narrative [facility]IN[facility] - 01/31/2025 12:02 PM EDT [employer] DO [facility] Final Result [facility] TB * [...] Address [facility]/ZIP Co de Phone Number [facility] TB * (ABNORMAL) TBH CREATININE (01/31/2025 11:36 AM EDT) CREATININE 0.46(L) 0.55 - 1.02 mg/dL TBH TBH EGFR-AF ESTONIAN >60 >=60 mL/min/1.7 3m 2 TBH TBH EGFR-NON AF ESTONIAN >60 >=60 mL/min/1.7 3m 2 TBH 01/31/2025 11:3 6 AM EDT 01/31/2025 11:41 AM EDT Narrative CLIN[facility] - 01/31/2025 12:02 PM EDT Yogeshcami Herrerao DO [facility] Final Result Performing Organization Address City/[facility]/ZIP Co de Phone Number [facility] TB * (ABNORMAL) ALL BUN (01/31/2025 11:36 AM EDT) BLOOD UREA NITROGEN 5.0(L) 7.0 - 18.0 mg/dL TBH 01/31/2025 11:3 6 AM EDT 01/31/2025 11:41 AM EDT Narrative [facility] - 01/31/2025 12:02 PM EDT us Yogesh Ally DO [facility] Final Result [facility] TB * (ABNORMAL) ALL CBC WITH AUTO DIFF (01/31/2025 11:36 AM EDT) Pathologist [facility] TB WBC 10.4 4.0 - 11.0 10 [...] EDT Yogesh Canales DO [facility] * TBH URINE T PROTEIN CREAT RATIO (01/31/2025 11:30 AM EDT) TOTAL PROTEIN URINE RANDOM 8.3 <=11.9 mg/dL TBH CREATININE URINE RANDOM 42.26 20.00 - 300.00 mg/dL TBH PROTEIN CREATININE RATIO URINE 0.20 TBH 01/31/2025 11:3 0 AM EDT 01/31/2025 11:41 AM EDT Narrative [facility]IN[facility] - 01/31/2025 1:06 PM EDT Yogesh Canales DO [facility] Final Result Performing Organization Address [facility] Co de Phone Number [facility] * US OB BPP W NON-STRESS (01/31/2025 11:08 AM EDT) Anatomical Region Laterality Modality Other 01/31/2025 11:0 8 AM EDT Narrative 01/31/2025 11:[place] [address] Ultrasound Report Signed Patient: FRANCES DOE MR#: [id number] : 2005 Acct:[id number] Age/Sex: 19 / F ADM Date: 01/31/25 Loc: [facility] 254-[address]: Yogesh Canales D.O. Ordering Physician: Yogesh Canales D.O. Date of Service: 01/31/25 Procedure(s): US OB BPP w non-stress Accession Number(s): [id number] cc: Yogesh Canales D.O.; HAZEL GRADY [place] [address] Patient Name: FRANCES DOE MRN: TBH:[id number] date: 2005 Sex: F Assigned Patient Location: [facility] Current Patient Location: [facility] Accession/Order Number: [id number] Exam Date: 01/31/2025 11:05 Report Date: 01/31/2025 11:08 At the request of: YOGESH CANALES DO Procedure: US OB BPP w non-stress BIOPHYSICAL PROFILE: CLINICAL INFORMATION: Oligohydramnios COMPARISON: 01/25/2025 There is a single live intrauterine gestation in cephalic presentation. The reported gestational age is 35 weeks 4 days. The heart rate [id number] beats per minute. FINDINGS: TONE: 1 or [...] Nascimento M.D. 01/31/2025 11:08 AM Dictation Location: [place] [address] Electronically authenticated by: [id number] Y Date: 01/31/2025 11:08 Dictated By: Aparna Nascimento M.D. Signed By: 01/31/25 1111 DD/ 1108 TD/TT: Senior Media Planner: Procedure Note Radiology, Radiologist, - 01/31/2025 [place] [address] Ultrasound Report Signed Patient: FRANCES DOE RMR#: [id number] : 2005Acct:[id number] Age/Sex: 19 / FADM Date: 01/31/25 Loc: [facility] 254-[address]: Yogesh Canales D.O. Ordering Physician: Yogesh Canales D.O. Date of Service: 01/31/25 Procedure(s): US OB BPP w non-stress Accession Number(s): [id number] cc: Yogesh Canales D.O.; HAZEL GRADY [place] [address] Patient Name: FRANCES DOE MRN: [facility]:[id number] date: 2005 Sex: F Assigned Patient Location: [facility] Current Patient Location: [facility] Accession/Order Number: [id number] Exam Date: 01/31/2025 11:05 Report Date: 01/31/2025 11:08 At the request of: YOGESH CANALES DO Procedure: US OB BPP w non-stress BIOPHYSICAL PROFILE: CLINICAL INFORMATION: Oligohydramnios COMPARISON: 01/25/2025 There is a single live intrauterine gestation in cephalic presentation.The reported gestational age is 35 weeks 4 days. The heart [id number] beats per minute. FINDINGS: TONE: 1 or [...] Nascimento M.D. 01/31/2025 11:08 AM Dictation Location: [place] [address] Electronically authenticated by: [id number] Y Date: 1:08 Dictated By: Aparna Nascimento M.D. Signed By:01/31/25 1111 DD/ 1108 TD/TT: Senior Media Planner: us Yogesh Herrerao DO [facility] Final Result documented in this encounter Visit Diagnoses Not on filedocumented in this encounter Care Teams Pot Fisher Relationship Specialty Start Date End Date Hazel Grady MD [address] [place] [address] PCP - General Family Medicine 07/18/24 documented as of this encounter
--- OUTSIDE RECORDS SUMMARY | 2025-02-03 10:12 | XMS_ITS | Encounter Summary ---
Author Organization [facility] Address [address] [place] [address] Care Team Providers Care Burn Center Nurse Name Role Phone Hazel Grady MD Primary Care Provider [phone] Encounter Details Date Type Department Care Team (Late st Contact Info) Description 01/24/2025 Clinisync Result Encounter [facility] External Department Unsolicited Yogesh Canales DO [address] [place] [address] Jess Flynn, [facility]11 Social History Tobacco Use Types Packs/Day [...] st Contact Info) Description 02/04/2025 Abstract [facility] OB [facility] [place] [address] Yogesh Canales DO [address] [place], [place] [address] 02/12/2025 1:50 PM EDT Office Visit [facility] OB [facility] [place] [address] Maryanne Whiteside PA [address] [place], [place] [address] documented as of this encounter Procedures Procedure Name Priority Date/Time Associated Diagnosis Comments US OB BPP W NON-STRESS 01/24/2025 10:38 AM EDT documented in this encounter Results * US OB BPP W NON-STRESS (01/24/2025 10:38 AM EDT) Anatomical Region Laterality Modality Other 01/24/2025 10:3 8 AM EDT Narrative 01/24/2025 10:41 [place] [address] Ultrasound Report Signed Patient: JIMBO DOE MR#: [id number] : 2005 Acct:[id number] Age/Sex: 19 / F ADM Date: 01/24/25 Loc: [facility] 250-[address]: Yogesh Canales D.O. Ordering Physician: Yogesh Canales D.O. Date of Service: 01/24/25 Procedure(s): US OB BPP w non-stress Accession Number(s): [id number] cc: Yogesh Canales D.O.; HAZEL GRADY [address] [address] Patient Name: JIMBO DOE MRN: TBH:[id number] date: 2005 Sex: F Assigned Patient Location: [facility] Current Patient Location: [facility] Accession/Order Number: [id number] Exam Date: 01/24/2025 10:33 Report Date: 01/24/2025 [...] Nascimento M.D. 01/24/2025 10:38 AM Dictation Location: [place] [address] Electronically authenticated by: [id number] Y Date: 01/24/2025 10:38 Dictated By: Aparna Nascimento M.D. Signed By: 01/24/25 1041 DD/ 1038 TD/TT: Precision Lens Centerer And Edger: Procedure Note Radiology, Radiologist, MD - 01/24/2025 [place] [address] Ultrasound Report Signed Patient: JIMBO DOE RMR#: [id number] : 2005Acct:[id number] Age/Sex: 19 / FADM Date: 01/24/25 Loc: [facility] 250-[address]: Yogesh Canales D.O. Ordering Physician: Yogesh Canales D.O. Date of Service: 01/24/25 Procedure(s): US OB BPP w non-stress Accession Number(s): [id number] cc: Yogesh Canales D.O.; HAZEL GRADY The [address] [address] Patient Name: JIMBO DOE MRN: [id number]:[id number] date: 2005 Sex: F Assigned Patient Location: [facility] Current Patient Location: [facility] Accession/Order Number: [id number] Exam Date: 01/24/2025 10:33 Report Date: 01/24/2025 [...] Nascimento M.D. 01/24/2025 10:38 AM Dictation Location: [place] [address] Electronically authenticated by: [id number] Y Date: 0:38 Dictated By: Aparna Nascimento M.D. Signed By:01/24/25 1041 DD/ 1038 TD/TT: [employer] Lens Centerer And Edger: Yogesh Canales DO [facility] Final Result documented in this encounter Visit Diagnoses Not on filedocumented in this encounter Care Teams Burn Center Nurse Relationship Specialty Start Date End Date Hazel Grady MD [address] [place] [address] PCP - General Family Medicine 07/18/24 documented as of this encounter
[2025-02-03 10:17] VITALS: BP 111/73; PULSE 101
== END 2025-02-03 10:47 | disposition home or self-care (01) ==
LOC: FBCO 10:07 → FBC 10:09
PROVIDERS: PCP Family Medicine; Visit Provider Obstetrics & Gynecology
DX: O41.00X0 Oligohydramnios, unspecified trimester, not applicable or unspecified (principal)
CPT/HCPCS: 59025

== ENCOUNTER 2025-02-04 18:26 | Inpatient (IN) | payer OTHER, SELFPAY ==
--- OUTSIDE RECORDS SUMMARY | 2016-05-22 10:00 | XMS_ITS | Continuity of Care Document ---
Author Organization [employer] [facility] Address [address] [facility] [place] [address] Phone Care Team Providers Care Soap Mixer Name Role Phone Floyd WANG, Selvin Unavailable [...] Diagnoses Date Provider Providers Copied on Encounter [facility], [address] [facility] [address], [place], [place], [address], [place] tel:[phone] [facility] vaccine adm. (chief complaint) No Information 6 Floyd Montalvo. [address] [address], [place], [place], [address], [place]. tel:[phone] Referring Provider: Selvin Bell, [address] [address], [place], [address] . tel:[phone] [facility], [address] [place] [address] [address], [place], [place], [address], [place] tel:[phone] [facility] No Information [address] [facility], [address] [place] [address] [address], [place], [place], [address], [place] tel:[phone] [facility] No Information 5 Floyd Montalvo. [address] [address], [place], [place], [address], [place]. tel:[phone] PREV VISIT, NEW, AGE 5-[facility], [address] [place] [address] [address], [place], [place], [address], [place] tel:[phone] [facility] Well child (chief complaint) Encntr for routine child health exam w/o abnormal findings 5 Ahmet Snyder. [address], [address], [place]. tel:[phone] Referring Provider: Lillian Leo MD, [address], [address]. tel:[phone] Family History Family Member Type Diagnosis Age [...] green party ID Authoriza tion(s) Medicaid [place] [id number] Medicaid [place] [id number] Medicaid [place] [id number] [facility] [id number] 9 Social History Type Description Quantity Date [...]
--- OUTSIDE RECORDS SUMMARY | 2023-08-23 10:15 | XMS_ITS ---
Author Organization [facility] Address [address] [place] [address] Care Team Providers Care Gang Miner Name Role Phone Amanda Wilson Primary Care Provider REASON FOR VISIT NEW PT REFERRAL FROM [facility] Encounters Encounter Location Date Provider Diagnosis [facility] [address] [place] [address] 08/23/2023 Amanda Wilson Plan Of Treatment No Information Progress Notes * YUMIKO DOEEDOB: [birth year] (19 yo F)Acc No.[id number]:08/23/2023 Consult - Patient Patient: JIMBO PICHARDO Provider: JOSEPH Dumont :2005 A ge:17 Y S ex:Female Date:08/23/2023 Address:[address], [place], [id number] Subjective: * Chief Complaints: * 1 . NEW PT REFERRAL FROM [facility]. Objective: Therapeutic Interventions: Assessment: Plan: * Images: Care Plan Details* * Electronic signature of JOSEPH Sheikh on 02/04/2025 at 06:30 PM EDT Sign off status: Pending * Provider: JOSEPH Dumont Date: 08/23/2023 Generated for Printi ng/Faxing/eTransmitting on: 0 02/04/2025 06:30 PM EDT
--- OUTSIDE RECORDS SUMMARY | 2025-02-01 08:50 | XMS_ITS | Encounter Summary ---
Author Organization [facility] Address [address] [place] [address] Care Team Providers Care Drift Miner Name Role Phone David Awan MD Primary Care Provider [phone] Reason for Visit * Reason Comments Routine Visit Encounter Details Date Type Department Care Team (Late st Contact Info) Description 02/01/2025 8:50 AM EDT Routine [facility] [address] [facility] [place] [address] Maryanne Whiteside PA [address] [address] [place], [place] [address] 35 weeks gestation of ([facility]); Third trimester ([facility]); Pruritus; Oligohydramnios in third trimester, fetus 1 of multiple gestation ([facility]); SGA (small for gestational age) ([facility]); headache in third trimester ([facility]) Social History Tobacco Use Types Packs/Day Years [...] this encounter Progress Notes * Madeline Toribio, V BELT INSPECTOR - 02/01/2025 8:50 AM EDT Reason for [...] nursing note reviewed. Exam conducted with a stem frazer present. Vitals: There is no height or [...] EDT Office Visit [facility] [address] [facility] [place] [phone] Maryanne Whiteside PA [address] [facility] [place] [address] Scheduled Orders Name Type Priority Associated Diagnoses Orde r Schedule CULTURE, GROUP B STREP WITH SUSCEPTIBLITY Lab Routine Third trimester ([facility]) Expected: 02/01/2025, Expires: 02/01/2026 documented as of this encounter Procedures Procedure Name Priority Date/Time Associated Diagnosis Comments POCT URINALYSIS DIPSTICK Routine 02/01/2025 9:19 AM EDT 35 weeks gestation of ([facility]) Third trimester ([facility]) Pruritus Oligohydramnios in third trimester, fetus 1 of multiple gestation ([facility]) documented in this encounter Results * (ABNORMAL) [...] Visit Diagnoses Diagnosis 35 weeks gestation of ([facility]) Third trimester ([facility]) state, incidental Pruritus Unspecified pruritic disorder Oligohydramnios in third trimester, fetus 1 of multiple gestation ([facility]) SGA (small for gestational age) ([facility]) Oepwi-jrz-feuhq without mention of malnutrition, unspecified (weight) headache in third trimester ([facility]) documented in this encounter Care Teams Drift Miner Relationship Specialty Start Date End Date David Awan MD [address] [place] [address] PCP - General Family Medicine 07/18/24 documented as of this encounter
--- OUTSIDE RECORDS SUMMARY | 2025-02-04 18:30 | XMS_ITS | Encounter Summary ---
Author Organization [facility] Address [address] [place] [address] Care Team Providers Care Tape Folding Machine Operator Name Role Phone David Awan MD Primary Care Provider [phone] Encounter Details Date Type Department Care Team (Late st Contact Info) Description 08/08/2024 Abstract [facility] OB [address] [facility] [place] [address] Cb Canales DO [address] [place] [address] Dr [place], [place] [address] Social History Tobacco Use Types Packs/Day Years [...] 02/12/2025 1:50 PM EDT Office Visit [facility] OB [address] [facility] [place] [address] Maryanne Whiteside PA [address] [facility] [address] [place], [place] [address] documented as of this encounter Visit Diagnoses Not on filedocumented in this encounter Care Teams Tape Folding Machine Operator Relationship Specialty Start Date End Date David Awan MD [address] [place] [address] PCP - General Family Medicine 07/18/24 documented as of this encounter
--- OUTSIDE RECORDS SUMMARY | 2025-02-04 18:30 | XMS_ITS | Patient Health Record ---
Author Organization [facility] [employer] Address [address] [place] [address] Care Team Providers Care Pediatric Social Worker Name Role Phone Amanda Wilson Primary Care Provider Reason For Referral No Information Plan Of Treatment No Information Insurance Providers Payer Name Payer Address Payer Phone Subscriber Number Group Number Insured Name Patient Relationship to Insured Coverage Start Date Coverage End Date [facility] [address] [address] [place] [address] [phone] [id number] JIMBO DOE Self - patient is the insured 3
--- OUTSIDE RECORDS SUMMARY | 2025-02-04 18:30 | XMS_ITS | Encounter Summary ---
Author Organization [facility] Address [address] [place] [address] Care Team Providers Care Academic Support Assistant Name Role Phone Hazel Grady MD Primary Care Provider [phone] Encounter Details Date Type Department Care Team (Late st Contact Info) Description 01/25/2025 Clinisync Result Encounter N[facility] External Department Unsolicited Yogesh Canales DO [address] [facility] [address] Pepper [place], [place] [address] Social History Tobacco Use Types Packs/Day Years [...] EDT Office Visit [facility] OB [address] [facility] [place] [address] Maryanne Whiteside PA [address] [facility] [place] [address] documented as of this encounter Procedures Procedure Name Priority Date/Time Associated Diagnosis Comments US OB BPP W NON-STRESS 01/25/2025 3:01 PM EDT documented in this encounter Results * US OB BPP W NON-STRESS (01/25/2025 3:01 PM EDT) Anatomical Region Laterality Modality Other 01/25/2025 3:01 PM EDT Narrative 01/25/2025 3:04 [place] [address] Ultrasound Report Signed Patient: JIMBO DOE MR#: [id number] : 2005 Acct:[id number] Age/Sex: 19 / F ADM Date: 01/25/25 Loc: [facility] Attending Dr: Yogesh Canales D.O. Ordering Physician: Yogesh Canales D.O. Date of Service: 01/25/25 Procedure(s): US OB BPP w non-stress Accession Number(s): [id number] cc: Yogesh Canales D.O.; HAZEL GRADY [place] [address] Patient Name: JIMBO DOE MRN: TBH:[id number] date: 2005 Sex: F Assigned Patient Location: [facility] Current Patient Location: Accession/Order Number: [id number] Exam Date: 01/25/2025 14:59 Report Date: 01/25/2025 15:01 At the request of: YOGESH CANALES DO Procedure: US OB BPP w non-stress Biophysical profile. Reason for exam: Oligohydramnios. COMPARISON: BPP 01/24/2025. TECHNIQUE: Transabdominal imaging of the gravid uterus was obtained. FINDINGS: Scientific Associate reports a BPP of 8 out of 8. JEROD is normal 11.4 cm. heart rate 159 bpm. US/US OB BPP w non-stress Impression: BPP 8 out of 8. Impression dictated by: Stanislav Francisco Jr., D.O. 01/25/2025 3:01 PM Dictation Location: [place] [address] Electronically authenticated by: [id number] Y Date: 01/25/2025 15:01 Dictated By: Stanislav Francisco M.D. Signed By: 01/25/25 1504 DD/ 1501 TD/TT: Measurement Department Chief Clerk: Procedure Note Radiology, Radiologist, MD - 01/25/2025 [place] [address] Ultrasound Report Signed Patient: JIMBO DOE RMR#: [id number] : 2005Acct:[id number] Age/Sex: 19 / FADM Date: 01/25/25 Loc: [facility] Attending Dr: Yogesh Canales D.O. Ordering Physician: Yogesh Canales D.O. Date of Service: 01/25/25 Procedure(s): US OB BPP w non-stress Accession Number(s): [id number] cc: Yogesh Canales D.O.; HAZEL GRADY The [place] [address] Patient Name: JIMBO DOE MRN: TBH:[id number] date: 2005 Sex: F Assigned Patient Location: [facility] Current Patient Location: Accession/Order Number: [id number] Exam Date: 01/25/2025 14:59 Report Date: 01/25/2025 15:01 At the request of: YOGESH CANALES DO Procedure: US OB BPP w non-stress Biophysical profile. Reason for exam: Oligohydramnios. COMPARISON: BPP 01/24/2025. TECHNIQUE: Transabdominal imaging of the gravid uterus was obtained. FINDINGS: Scientific Associate reports a BPP of 8 out of 8. JEROD is normal 11.4 cm. heart rate 159 bpm. US/US OB BPP w non-stress Impression: BPP 8 out of 8. Impression dictated by: Stanislav Francisco Jr., D.O. 01/25/2025 3:01 PM Dictation Location: [place] [address] Electronically authenticated by: [id number] Y Date: 5:01 Dictated By: Stanislav Francisco M.D. Signed By:01/25/25 1504 DD/ 1501 TD/TT: Measurement Department Chief Clerk: us Yogesh Ally DO [facility] Final Result documented in this encounter Visit Diagnoses Not on filedocumented in this encounter Care Teams Academic Support Assistant Relationship Specialty Start Date End Date Hazel Grady MD [address] [place] [address] PCP - General Family Medicine 07/18/24 documented as of this encounter
--- OUTSIDE RECORDS SUMMARY | 2025-02-04 18:30 | XMS_ITS | Encounter Summary ---
Author Organization [facility] Address [address] [address] Care Team Providers Care Insecticide Expert Name Role Phone Hazel Grady MD Primary Care Provider [phone] Encounter Details Date Type Department Care Team (Late st Contact Info) Description 01/31/2025 Clinisync Result Encounter N[facility]S External Department Unsolicited Yogesh Canales DO [address] [place], [place] [address] Social History Tobacco Use Types Packs/Day Years [...] Office Visit [facility] BCP OB [address] [place] [address] Maryanne Whiteside PA [address] [place] [address] documented as of this encounter Procedures Procedure [...] Yogesh Ally DO CLINISYNC Final Result [facility] * [facility] APTT (01/31/2025 11:36 AM EDT) PARTIAL THROMBOPLASTIN TIME 26.7 22.3 - 36.2 sec TBH 01/31/2025 11:3 6 AM EDT 01/31/2025 11:41 AM EDT Narrative CLINISYNC - 01/31/2025 12:22 PM EDT Yogesh Herrerao DO CLINISYNC Final Result Performing Organization Address [facility] Co de Phone Number [facility] * SRMCOH PROTHROMBIN TIME INR W/O [...] Herrerao CLINISYNC Final Result Performing Organization Address [facility] Co de Phone Number [facility] * (ABNORMAL) [facility] ALT (01/31/2025 11:36 AM EDT) ALANINE AMINOTRANSFERASE 13(L) 14 - 59 U/L TB 01/31/2025 11:3 6 AM EDT 01/31/2025 11:41 AM EDT Narrative CLINISYNC - 01/31/2025 12:02 PM EDT Yogesh Herrerao DO WERNERISYNC Final Result Performing Organization Address [facility]/ZIP Co de Phone Number [facility] * (ABNORMAL) [facility] AST (01/31/2025 11:36 AM EDT) ASPARTATE AMINO TRANSFERASE 11(L) 15 - 37 U/L TBH 01/31/2025 11:3 6 AM EDT 01/31/2025 11:41 AM EDT Narrative CLINISYNC - 01/31/2025 12:02 PM EDT Yogesh Ally DO CLINISYNC Final Result [facility] * ALL URIC ACID (01/31/2025 11:36 AM EDT) URIC ACID 3.7 2.6 - 6.0 mg/dL TBH 01/31/2025 11:3 6 AM EDT 01/31/2025 11:41 AM EDT Narrative CLINISYNC - 01/31/2025 12:02 PM EDT Yogesh Ally DO CLINISYNC Final Result Performing Organization Address [facility] Co de Phone Number [facility] * (ABNORMAL) TBH CREATININE (01/31/2025 11:36 AM EDT) CREATININE 0.46(L) 0.55 - 1.02 mg/dL TBH TBH EGFR-AF SAMMARINESE >60 >=60 mL/min/1.7 3m 2 TBH TBH EGFR-NON AF SAMMARINESE >60 >=60 mL/min/1.7 3m 2 TBH 01/31/2025 11:3 6 AM EDT 01/31/2025 11:41 AM EDT Narrative CLINISYNC - 01/31/2025 12:02 PM EDT Yogesh Ally DO CLINISYNC Final Result Performing Organization Address [facility] Co de Phone Number [facility] * (ABNORMAL) ALL BUN (01/31/2025 11:36 AM EDT) BLOOD UREA NITROGEN 5.0(L) 7.0 - 18.0 mg/dL TBH 01/31/2025 11:3 6 AM EDT 01/31/2025 11:41 AM EDT Narrative CLINISYNC - 01/31/2025 12:02 PM EDT Yogesh Ally DO CLINISYNC Final Result CLINISYNC TB * (ABNORMAL) ALL CBC WITH AUTO DIFF (01/31/2025 11:36 AM EDT) Pathologist [facility] TBH WBC 10.4 4.0 - 11.0 10 [...] DO CLINISYNC Final Result Performing Organization Address City/[facility] Co de Phone Number [facility] * TBH URINE T PROTEIN CREAT RATIO (01/31/2025 11:30 AM EDT) TOTAL PROTEIN URINE RANDOM 8.3 <=11.9 mg/dL TBH CREATININE URINE RANDOM 42.26 20.00 - 300.00 mg/dL TBH PROTEIN CREATININE RATIO URINE 0.20 TBH 01/31/2025 11:3 0 AM EDT 01/31/2025 11:41 AM EDT Narrative WERNERISYDC - 01/31/2025 1:06 PM EDT Yogesh Allydelvis ROSARIO Final Result Performing Organization Address [facility] de Phone Number [facility] * US OB BPP W NON-STRESS (01/31/2025 11:08 AM EDT) Anatomical Region Laterality Modality Other 01/31/2025 11:0 8 AM EDT Narrative 01/31/2025 11:[place] [address] Ultrasound Report Signed Patient: FRANCES DOE MR#: [id number] : 2005 Acct:[id number] Age/Sex: 19 / F ADM Date: 01/31/25 Loc: [facility] 254-[address]: Yogesh Canales D.O. Ordering Physician: Yogesh Canales D.O. Date of Service: 01/31/25 Procedure(s): US OB BPP w non-stress Accession Number(s): [id number] cc: Yogesh Canales D.O.; HAZEL GRADY [place] [id number] Patient Name: FRANCES DOE MRN: TBH:[id number] date: 2005 Sex: F Assigned Patient Location: [facility] Current Patient Location: [facility] Accession/Order Number: [id number] Exam Date: 01/31/2025 11:05 Report Date: 01/31/2025 11:08 At the request of: YOGESH CANALES DO Procedure: US OB BPP w non-stress BIOPHYSICAL PROFILE: CLINICAL INFORMATION: Oligohydramnios COMPARISON: 01/25/2025 There is a single live intrauterine gestation in cephalic presentation. The reported gestational age is 35 weeks 4 days. The heart rate beats [...] Nascimento M.D. 01/31/2025 11:08 AM Dictation Location: [place] [address] Electronically authenticated by: [id number] Y Date: 01/31/2025 11:08 Dictated By: Aparna Nascimento M.D. Signed By: 01/31/25 1111 DD/ 1108 TD/TT: Vulcanizing Machine Operator: Procedure Note Radiology, Radiologist, MD - 01/31/2025 [place] [address] Ultrasound Report Signed Patient: FRANCES DOE RMR#: [id number] : 2005Acct:[id number] Age/Sex: 19 / FADM Date: 01/31/25 Loc: [facility] 254-[address]: Yogesh Canales D.O. Ordering Physician: Yogesh Canales D.O. Date of Service: 01/31/25 Procedure(s): US OB BPP w non-stress Accession Number(s): [id number] cc: Yogesh Canales D.O.; HAZEL GRADY [address] [address] Patient Name: FRANCES DOE MRN: [facility]:[id number] date: 2005 Sex: F Assigned Patient Location: [facility] Current Patient Location: [facility] Accession/Order Number: [id number] Exam Date: 01/31/2025 11:05 Report Date: 01/31/2025 11:08 At the request of: YOGESH CANALES DO Procedure: US OB BPP w non-stress BIOPHYSICAL PROFILE: CLINICAL INFORMATION: Oligohydramnios COMPARISON: 01/25/2025 There is a single live intrauterine gestation in cephalic presentation.The reported gestational age is 35 weeks 4 days. The heart [id number] beats per minute. FINDINGS: TONE: 1 or [...] Nascimento M.D. 01/31/2025 11:08 AM Dictation Location: [place] [address] Electronically authenticated by: [id number] Y Date: 1:08 Dictated By: Aparna Nascimento M.D. Signed By:01/31/25 1111 DD/ 1108 TD/TT: Vulcanizing Machine Operator: Yogesh Canales DO [facility] Final Result documented in this encounter Visit Diagnoses Not on filedocumented in this encounter Care Teams Insecticide Expert Relationship Specialty Start Date End Date Hazel Grady MD [address] [place] [id number] PCP - General Family Medicine 07/18/24 documented as of this encounter
--- OUTSIDE RECORDS SUMMARY | 2025-02-04 18:30 | XMS_ITS | Encounter Summary ---
Author Organization [facility] Address [address] [place] [address] Care Team Providers Care Data Warehouse Administrator Name Role Phone David Awan MD Primary Care Provider [phone] Encounter Details Date Type Department Care Team (Late st Contact Info) Description 02/01/2025 Clinisync Result Encounter NOMS External Department Unsolicited Cb Canales DO [address] [facility] [address] [place], [place] [address] Social History Tobacco Use Types Packs/Day Years [...] EDT Office Visit [facility] BCP OB [address] [place] [address] Maryanne Whiteside PA [address] [place] [address] documented as of this encounter Procedures Procedure [...] us Cb Ally DO [facility] documented in this encounter Visit Diagnoses Not on filedocumented in this encounter Care Teams Data Warehouse Administrator Relationship Specialty Start Date End Date David Awan MD [address] [place] [address] PCP - General Family Medicine 07/18/24 documented as of this encounter
--- OUTSIDE RECORDS SUMMARY | 2025-02-04 18:30 | XMS_ITS | Encounter Summary ---
Author Organization [facility] tem Address [id number] [address] [place] [address] Care Team Providers Care Fat Pressroom Worker Name Role Phone Unavailable Primary Care Provider Unavailabl e Encounter Details Date Type Department Care Team (Late st Contact Info) Description 01/04/2025 Abstract Maternal- Medicine at [facility] [address] [place] [phone] Mike Lay MD [address] [facility] [address] [place] [address] Social History Tobacco Use Types Packs/Day Years [...] ORDERABLES Jessica l Result Performing Organization Address City/[facility] Co de Phone Number MANUALLY TRANSCRIBED RESULTS * Rubella IGG immune status (08/05/2024) Rubella immune IgG immune MANUALLY TRANSCRIBED RESULTS Blood Venous blood / Unknown us Not In System Ref Prov LAB BLOOD ORDERABLES Jessica l Result Performing Organization Address City/[facility] Co de Phone Number MANUALLY TRANSCRIBED RESULTS * Syphilis Total (Unknown Syphilis Status) (08/05/2024) Syphilis non reactive MANUALL Y TRANSCRIBED RESULTS Blood Venous blood / Unknown us Not In System Ref Prov LAB BLOOD ORDERABLES Jessica l Result MANUALLY TRANSCRIBED RESULTS documented in this encounter Visit Diagnoses Not on filedocumented in this encounter
--- OUTSIDE RECORDS SUMMARY | 2025-02-04 18:30 | XMS_ITS | Clinical Summary ---
Author Organization [facility] [facility] tem Address [id number] [address] [place] [address] Care Team Providers Care Telecommunications Manager Name Role Phone Unavailable Primary Care [...] Description 01/04/2025 Orders Only Maternal- Medicine at [facility] [address] [place] [phone] Ref Prov, Not In System 01/04/2025 Abstract Maternal- Medicine at [facility] [address] [place] [address] Mike Lay MD from Last 3 Months [...] 9:32 AM EDT) Anatomical Region Laterality Modality OB-OVERLOCK OPERATOR Ultrasound 01/18/2025 8:21 AM EDT Narrative 01/18/2025 10:30 AM EDT NAME: BROOK CHOI : 2005 SEX: F Accession Number: [id number] ORDERING PHYSICIAN: CB CANALES REFERRING PHYSICIAN: CB CANALES Coding ----- --------- Procedures [id number]: Ultrasound, uterus, real time with image documentation, [...] EFW (oz) 14 oz EFW by: Hadlock ([id number]) Extended Tibia 56.1 mm 32w 6d 45% Tj Oyster Culturist 2.0 mm Head / Face / Neck [...] Heart / Thorax RVOT view. LVOT view. 3-hvlyae-zcvejsr view. Aortic arch view. Bicaval view. Ductal [...] CHOI : 2005 SEX: F Accession Number: [id number] ORDERING PHYSICIAN: CB CANALES REFERRING PHYSICIAN: CB CANALES Coding ----- --------- Procedures [id number]: Ultrasound, uterus, real time with imagedocumentation, and [...] EFW (oz) 14 oz EFW by: Hadlock ([id number]) Extended Tibia 56.1 mm 32w 6d 45% Tj Oyster Culturist 2.0 mm Head / Face / Neck [...] Heart / Thorax RVOT view. LVOT view. 1-jwayny-ivrpsos view. Aortic archview. Bicaval view. Ductal arch [...] period is included. Anatomical Region Laterality Modality OB-OVERLOCK OPERATOR Ultrasound us Not In System Ref [...] TRANSCRIBED RESULTS from Last 3 Months Insurance [facility]
--- OUTSIDE RECORDS SUMMARY | 2025-02-04 18:30 | XMS_ITS | Encounter Summary ---
Author Organization [facility] Address [address] [place] [address] Care Team Providers Care Erp Consultant Name Role Phone David Awan MD Primary Care Provider [phone] Encounter Details Date Type Department Care Team (Late st Contact Info) Description 01/18/2025 Abstract [facility] OB [address] [place] [address] Zita Jade MA Social History Tobacco [...] EDT Office Visit [facility] BCP OB [address] [place] [address] Maryanne Whiteside PA [address] [place], [place] [phone] documented as of this encounter Visit Diagnoses Not on filedocumented in this encounter Care Teams Erp Consultant Relationship Specialty Start Date End Date David Awan MD [address] [place] [address] PCP - General Family Medicine 07/18/24 documented as of this encounter
--- OUTSIDE RECORDS SUMMARY | 2025-02-04 18:30 | XMS_ITS | Encounter Summary ---
Author Organization [facility] Address [address] [place] [address] Care Team Providers Care Physician Executive Name Role Phone David Awan MD Primary Care Provider [phone] Encounter Details Date Type Department Care Team (Late st Contact Info) Description 01/31/2025 Abstract [facility] OB [address] [place] [phone] Cb Canales DO [address] [place] [address] [address] [place], [place] [id number] Social History Tobacco Use Types Packs/Day Years [...] 02/12/2025 1:50 PM EDT Office Visit [facility] OB [address] [place] [address] Maryanne Whiteside PA [address] [place], [place] [phone] documented as of this encounter Visit Diagnoses Not on filedocumented in this encounter Care Teams Physician Executive Relationship Specialty Start Date End Date David Awan MD [address] [place] [address] PCP - General Family Medicine 07/18/24 documented as of this encounter
--- OUTSIDE RECORDS SUMMARY | 2025-02-04 18:30 | XMS_ITS | Clinical Summary ---
Author Organization [facility] Healthcare Address [address] [place] [address] Care Team Providers Care Retail Planning Manager Name Role Phone Hazel Grady MD Primary Care Provider [phone] Allergies Active Allergy Reactions Criticality Noted Date Comments Amoxicillin Rash Low 2003 Medications sertraline (Zoloft) 50 MG tablet Take 50 mg by mouth at bedtime 04/05/2024 Active promethazine (Phenergan) 12.5 MG tabletIndicatio ns: headache, antepartum ([facility]) Take 1 tablet (12.5 mg) by [...] Encounters Date Type Department Care Team Description 02/04/2025 Abstract [facility] OB [address] [place] [address] Yogesh Canales DO 02/01/2025 8:50 AM EDT Routine [facility] OB [facility] [place] [address] Maryanne Whiteside PA 35 weeks gestation of ([facility]); Third trimester ([facility]); Pruritus; Oligohydramnios in third trimester, fetus 1 of multiple gestation ([facility]); SGA (small for gestational age) ([facility]); headache in third trimester ([facility]) 02/01/2025 Clinisync Result Encounter [facility] External Department Unsolicited Yogesh Canales, DO 02/01/2025 Bamboo flowsheet [facility] OB [address] [place] [address] Maryanne Whiteside PA 01/31/2025 Abstract [facility] OB [address] [place] [address] Yogesh Canales, DO 01/31/2025 Clinisync Result Encounter [facility] External Department Unsolicited Yogesh Canales, DO 01/25/2025 8:40 AM EDT Routine [facility] OB [address] [place] [address] Yogesh Canales, DO Third trimester ([facility]); 34 weeks gestation of ([facility]) 01/25/2025 Clinisync Result Encounter [facility] External Department Unsolicited Yogesh Canales, DO 01/25/2025 Bamboo flowsheet [facility] OB [address] [place] [address] Yogesh Canales, DO 01/24/2025 Clinisync Result Encounter [facility] External Department Unsolicited Yogesh Canales, DO 01/18/2025 Abstract [facility] OB [address] [place] [address] Zita Jade MA 01/18/2025 External Result Encounter [facility] OB [address] [place] [address] Yogesh Canales, DO 01/17/2025 Clinisync Result Encounter [facility] External Department Unsolicited Yogesh Canales, DO 01/11/2025 1:30 PM EDT Routine [facility] OB [address] [place] [address] Maryanne Whiteside PA Third trimester ([facility]); 32 weeks gestation of ([facility]); Pruritus 01/11/2025 Clinisync Result Encounter [facility] External Department Unsolicited Maryanne Whiteside PA 01/11/2025 Bamboo flowsheet [facility] OB [address] [place] [address] Maryanne Whiteside PA 01/10/2025 Clinisync Result Encounter [facility] External Department Unsolicited Ally, Yogesh, DO 01/06/2025 Clinisync Result Encounter [facility] External Department Unsolicited Ally, Yogesh, DO 01/03/2025 Clinisync Result Encounter [facility] External Department Unsolicited Ally, Yogesh, DO 12/28/2024 9:50 AM EDT Routine [facility] OB [address] [place] [address] Ally, Yogesh, DO 30 weeks gestation of ([facility]); Third trimester ([facility]); Oligohydramnios in third trimester, fetus 1 of multiple gestation ([facility]) 12/28/2024 9:00 AM EDT Ancillary Procedure [facility] OB [address] [place] [address] size inconsistent with dates ([facility]) 12/16/2024 Clinisync Result Encounter [facility] External Department Unsolicited Ally, Yogesh, DO 12/15/2024 Clinisync Result Encounter [facility] External Department Unsolicited Ally, Yogesh, DO 12/06/2024 1:20 PM EDT Routine [facility] OB [address] [place] [address] Lynette Gunter NP size inconsistent with dates ([facility]) (Primary Dx); 27 weeks gestation of ([facility]); Second trimester ([facility]) 12/06/2024 Travel 12/06/2024 Bamboo flowsheet [facility] OB [address] [place] [address] Lynette Gunter NP 11/30/2024 Clinisync Result Encounter [facility]OMS External Department Unsolicited Ally YogeshDO 11/15/2024 10:50 AM EDT Routine [facility] [address] [place] [address] Yogesh Canales, DO 24 weeks gestation of ([facility]); Second trimester ([facility]); Diabetes mellitus screening 11/15/2024 10:00 AM EDT Ancillary Procedure [facility] [address] [place] [phone] Encounter for follow-up ultrasound of anatomy ([facility]) from Last 3 Months Social History Tobacco [...] 02/12/2025 1:50 PM EDT Office Visit [facility] [address] [place] [address] Maryanne Whiteside PA [address] [place] [address] [place] [address] Procedures Procedure Name Priority Date/Time Associated Diagnosis Comments TBH TOTAL PROTEIN 24 HOUR URINE Routine 02/01/2025 11:30 AM EDT POCT URINALYSIS DIPSTICK Routine 02/01/2025 9:19 AM EDT 35 weeks gestation of ([facility]) Third trimester ([facility]) Pruritus Oligohydramnios in third trimester, fetus 1 of multiple gestation ([facility]) MHPT FIBRINOGEN Routine 01/31/2025 11:36 AM EDT [...] Routine 01/25/2025 9:22 AM EDT Third trimester ([facility]) US OB BPP W NON-STRESS 01/24/2025 [...] 10:23 AM EDT 30 weeks gestation of ([facility]) US OB FOLLOW UP TRANSABDOMINAL APPROACH Routine 12/28/2024 9:43 AM EDT size inconsistent with dates ([facility]) TBH URINE T PROTEIN CREAT RATIO Routine 12/16/2024 1:30 PM EDT CCF LIPASE Routine 12/16/2024 12:41 PM EDT ALL AMYLASE Routine 12/16/2024 12:41 PM EDT [facility] CMP (CMP) (FOR REMOTE [facility] USE) Routine 12/16/2024 12:41 PM EDT ALL CBC WITH AUTO DIFF Routine 12:41 PM EDT ALL URIC ACID Routine 12/16/2024 12:30 AM EDT CCF LIPASE Routine 12/16/2024 12:30 AM EDT ALL AMYLASE Routine 12/16/2024 12:30 AM EDT [facility] CMP (CMP) (FOR REMOTE [facility] USE) Routine 12/16/2024 12:30 AM EDT ALL CBC WITH AUTO DIFF Routine 12:30 AM EDT TBH URINE MICROSCOPIC ONLY Routine 12/15/2024 11:00 PM EDT TBH UA (CLEAN/CATCH) KITCHEN CLEANER/MICRO IF IND. Routine 12/15/2024 11:00 PM EDT POCT URINALYSIS DIPSTICK Routine 12/06/2024 1:28 PM EDT 27 weeks gestation of ([facility]) Second trimester ([facility]) GLUCOSE 1 HOUR Routine 11/30/2024 2:12 PM EDT ALL CBC WITH AUTO DIFF Routine 2:12 PM EDT POCT URINALYSIS DIPSTICK Routine 11/15/2024 10:42 AM EDT 24 weeks gestation of ([facility]) Second trimester ([facility]) US OB LIMITED 1+ FETUSES Routine 11/15/2024 10:24 AM EDT Encounter for follow-up ultrasound of anatomy ([facility]) from Last 3 [...] Yogesh Canales DO CLINISYNC Final Result CLINISYNC TB * (ABNORMAL) POCT urinalysis dipstick manually resulted [...] mg/dL TBH TBH EGFR-AF SENEGALESE >60 >=60 mL/min/1.7 3m 2 TBH TBH EGFR-NON AF SENEGALESE >60 >=60 mL/min/1.7 3m 2 TBH 01/31/2025 11:3 6 AM EDT 01/31/2025 11:41 AM EDT Narrative CLINISYNC - 01/31/2025 12:02 PM EDT Yogesh Herrerao DO WERNERISYNC Final Result Performing Organization Address [facility] de Phone Number [facility] * SRMCOH PROTHROMBIN TIME INR W/O COUM (01/31/2025 11:36 AM EDT) PROTHROMBIN TIME 9.8 9.0 - 11.6 sec TBH TB INR <0.93 TBH Comment: DESIRED INR: 2.0-3.0 CONDITIONS NOT LISTED BELOW 2.5-3.5 FOR PROSTHETIC HEART VALVE REPLACEMENT 2.5-3.5 RECURRENT THROMBOSIS 01/31/2025 11:3 6 AM EDT 01/31/2025 11:41 AM EDT Narrative CLINISYNC - 01/31/2025 12:22 PM EDT Yogeshcami HENDRICKSONNC Final Result Performing Organization Address [facility] Co de Phone Number [facility] * (ABNORMAL) MHPT FIBRINOGEN (01/31/2025 11:36 AM EDT) FIBRINOGEN 469(H) 200 - 400 mg/dL TB 01/31/2025 11:3 6 AM EDT 01/31/2025 11:41 AM EDT Narrative CLINISYNC - 01/31/2025 12:22 PM EDT Result [facility] Yogeshcami ROSARIO Final Result Performing Organization Address [facility] de Phone Number [facility] * (ABNORMAL) CCF AST (01/31/2025 11:36 AM EDT) ASPARTATE AMINO TRANSFERASE 11(L) 15 - 37 U/L TBH 01/31/2025 11:3 6 AM EDT 01/31/2025 11:41 AM EDT Narrative CLINISYNC - 01/31/2025 12:02 PM EDT Yogesh Ally DO CLINISYNC Final Result CLINISYNC TBH * CCF APTT (01/31/2025 11:36 AM EDT) PARTIAL THROMBOPLASTIN TIME 26.7 22.3 - 36.2 sec TBH 01/31/2025 11:3 6 AM EDT 01/31/2025 11:41 AM EDT Narrative CLINISYNC - 01/31/2025 12:22 PM EDT Yogesh Ally DO CLINISYNC Final Result Performing Organization Address [facility] Co de Phone Number CLINISYNC TB * (ABNORMAL) CCF ALT (01/31/2025 11:36 AM EDT) ALANINE AMINOTRANSFERASE 13(L) 14 - 59 U/L TB 01/31/2025 11:3 6 AM EDT 01/31/2025 11:41 AM EDT Narrative CLINISYNC - 01/31/2025 12:02 PM EDT Yogesh Ally DO CLINISYNC Final Result Performing Organization Address [facility] Co de Phone Number CLINISYNC TB * ALL URIC ACID (01/31/2025 [...] Narrative CLINISYNC - 01/31/2025 11:55 AM EDT us Yogesh Ally DO CLINISYNC Final Result CLINISYNC TBH * (ABNORMAL) ALL BUN (01/31/2025 11:36 AM EDT) BLOOD UREA NITROGEN 5.0(L) 7.0 - 18.0 mg/dL TBH 01/31/2025 11:3 6 AM EDT 01/31/2025 11:41 AM EDT Narrative CLINISYNC - 01/31/2025 12:02 PM EDT Yogesh Ally DO CLINISYNC Final Result Performing Organization Address [facility] Co de Phone Number CLINISYNC TBH * TBH URINE T PROTEIN CREAT RATIO [...] DO CLINISYNC Final Result Performing Organization Address City/[facility]/ZIP Co de Phone Number CLINISYNC TB * US OB BPP W NON-STRESS (01/31/2025 11:08 AM EDT) Only the most recent of6 resultswithin the time period is included. Anatomical Region Laterality Modality Other 01/31/2025 11:0 8 AM EDT Narrative 01/31/2025 11:11 AM EDT The [address] [address] Ultrasound Report Signed Patient: FRANCES DOE MR#: [id number] : 2005 Acct:[id number] Age/Sex: 19 / F ADM Date: 01/31/25 Loc: [facility] 254-[address]: Yogesh Canales D.O. Ordering Physician: Yogesh Canales D.O. Date of Service: 01/31/25 Procedure(s): US OB BPP w non-stress Accession Number(s): [id number] cc: Yogesh Canales D.O.; [address] GR[address] [place] [address] Patient Name: FRANCES DOE MRN: [facility]:[id number] date: 2005 Sex: F Assigned Patient Location: [facility] Current Patient Location: [facility] Accession/Order Number: [id number] Exam Date: 01/31/2025 11:05 Report Date: 01/31/2025 11:08 At the request of: YOGESH CANALES DO Procedure: US OB BPP w non-stress BIOPHYSICAL PROFILE: CLINICAL INFORMATION: Oligohydramnios COMPARISON: 01/25/2025 There is a single live intrauterine gestation in cephalic presentation. The reported gestational age is 35 weeks 4 days. The heart rate osstnaht132 beats per minute. FINDINGS: TONE: 1 or [...] Nascimento M.D. 01/31/2025 11:08 AM Dictation Location: [place] [address] Electronically authenticated by: [id number] Y Date: 01/31/2025 11:08 Dictated By: Aparna Nascimento M.D. Signed By: 01/31/25 1111 DD/ 1108 TD/TT: Mechanical Manufacturing Engineer: Procedure Note Radiology, Radiologist, - 01/31/2025 [place] [address] Ultrasound Report Signed Patient: FRANCES DOE RMR#: [id number] : 2005Acct:[id number] Age/Sex: 19 / FADM Date: 01/31/25 Loc: [facility] 254-[address]: Yogesh Canales D.O. Ordering Physician: Yogesh Canales D.O. Date of Service: 01/31/25 Procedure(s): US OB BPP w non-stress Accession Number(s): [id number] cc: Yogesh Canales D.O.; HAZEL GRADY The [place] [address] Patient Name: FRANCES DOE MRN: [id number] date: 2005 Sex: F Assigned Patient Location: [facility] Current Patient Location: [facility] Accession/Order Number: [id number] Exam Date: 01/31/2025 11:05 Report Date: 01/31/2025 11:08 At the request of: YOGESH CANALES DO Procedure: US OB BPP w non-stress BIOPHYSICAL PROFILE: CLINICAL INFORMATION: Oligohydramnios COMPARISON: 01/25/2025 There is a single live intrauterine gestation in cephalic presentation.The reported gestational age is 35 weeks 4 days. The heart pharulteujec428 beats per minute. FINDINGS: TONE: 1 or [...] Nascimento M.D. 01/31/2025 11:08 AM Dictation Location: [place] [address] Electronically authenticated by: [id number] Y Date: 1:08 Dictated By: Aparna Nascimento M.D. Signed By:01/31/25 1111 DD/ 1108 TD/TT: Mechanical Manufacturing Engineer: us Yogesh Canales DO CLINISYNC IMAGING Final Result * US OB 14+ weeks anatomy scan (01/18/2025 10:30 AM EDT) Anatomical Region Laterality Modality Body Ultrasound 01/18/2025 10:3 0 AM EDT Narrative 01/18/2025 10:30 AM EDT THIS EXAM WAS PERFORMED AT [facility] NAME: BROOK CHOI : 2005 SEX: F Accession Number: [id number] ORDERING PHYSICIAN: YOGESH CANALES REFERRING PHYSICIAN: YOGESH CANALES Coding ----- --------- Procedures [id number]: Ultrasound, uterus, real time with image documentation, [...] EFW (oz) 14 oz EFW by: Hadlock ([id number]) Extended Tibia 56.1 mm 32w 6d 45% Tj Drop Forge Hand 2.0 mm Head / Face / Neck [...] Heart / Thorax RVOT view. LVOT view. 4-ahkdrc-wmqisfh view. Aortic arch view. Bicaval view. Ductal [...] - 01/18/2025 THIS EXAM WAS PERFORMED AT [facility] NAME: BROOK CHOI : 2005 SEX: F Accession Number: [id number] ORDERING PHYSICIAN: YOGESH CANALES REFERRING PHYSICIAN: YOGESH CANALES Coding ----- --------- Procedures [id number]: Ultrasound, uterus, real time with imagedocumentation, and [...] lb EFW (oz) 14 oz EFW by: Van ([id number]) Extended Tibia 56.1 mm 32w 6d 45% Tj Drop Forge Hand 2.0 mm Head / Face / Neck [...] Heart / Thorax RVOT view. LVOT view. 9-fsapra-adswakq view. Aortic archview. Bicaval view. Ductal arch [...] byprimary OB provider unless otherwise specified by [facility]. Results forwarded to ordering provider so they can follow up with thepatient as necessary. us Yogesh Canales DO [facility] OB US PROCEDURES Final Resul t * (ABNORMAL) [facility] LIVER PANEL (01/11/2025 2:14 PM EDT) BILIRUBIN [...] Maryanne HER Final Result Performing Organization Address [facility] Co de Phone Number CLINISYNC TB * [facility] BILE ACIDS FRACT BLD (01/11/2025 2:14 PM EDT) BILE ACIDS 1.6 0.0 - 10.0 umol/L TBH Comment: Performed at: - Lab[address] [id number] Parts Sales Representative: Mac Chawla MD, Phone: [phone] 01/11/2025 2:14 PM EDT 01/11/2025 2:18 PM EDT Narrative CLINISYNC - 01/12/2025 3:09 PM EDT us Maryanne HER Final Result Performing Organization Address City/[facility] Co de Phone Number CLINISYNC TB * ALL THYROID STIM HORMONE (01/11/2025 2:14 PM EDT) THYROID STIMULATING HORMONE 0.457 0.358 - 3.740 uIU/mL TBH 01/11/2025 2:14 PM EDT 01/11/2025 2:18 PM EDT Narrative CLINISYNC - 01/11/2025 3:18 PM EDT us Maryanne HER Final Result Performing Organization Address [facility] Co de Phone Number CLINISYNC TBH * ALL HEPATITIS C AB (01/11/2025 2:14 PM EDT) [facility] HCV ANTIBODY Non Reactive Non Reactive [facility] Comment: HCV antibody alone does not differentiate between previously resolved infection and active infection. Equivocal and Reactive HCV antibody results should be followed up with an HCV RNA test to support the diagnosis of active HCV infection. Performed at: [address] [id number] Parts Sales Representative: Porter Kamara PhD, Phone: [phone] 01/11/2025 2:14 PM EDT 01/11/2025 2:18 PM EDT Narrative [facility] - 01/12/2025 5:07 AM EDT us Maryanne FOWLER CLINISYWA Final Result Performing Organization Address [facility] Co de Phone Number [facility] * AMNISURE (01/06/2025 11:15 AM EDT) [facility] AMNISURE NEGATIVE NEGATIVE [facility] 01/06/2025 11:1 5 AM EDT 01/06/2025 11:29 AM EDT Narrative [facility] - 01/06/2025 11:41 AM EDT us Yogesh Canales DO LAB BLOOD ORDERABLES Final Resul t Performing Organization Address [facility] Co de Phone Number [facility] * US OB follow up transabdominal approach [...] II, MD, PHD at 29-Dec-2024 12:17:39 PM [facility] Procedure Note Dorothy Duckworth MD - [...] signed by DOROTHY DUCKWORTH II, MD, PHD [id number] 12:17:39 PM [facility] us Lynette Gunter OYSTER PREPARER IMG OB US PROCEDURES Final Re sult * (ABNORMAL) [facility] LIPASE (12/16/2024 12:41 PM EDT) Only the most recent of2 resultswithin the time period is included. LIPASE 15.0(L) 16.0 - 77.0 U/L TBH 12/16/2024 12:4 1 PM EDT 12/16/2024 12:44 PM EDT Narrative CLINISYNC - 12/16/2024 1:22 PM EDT us Yogesh Herrerao DO CLINISYNC Final Result [facility]IS[facility]NC [facility] * (ABNORMAL) CCF CMP (CMP) (FOR REMOTE [facility] USE) (12/16/2024 12:41 PM EDT) Only the [...] DO CLINISYNC Final Result Performing Organization Address City/[facility]/ZIP Co de Phone Number [facility] * ALL AMYLASE (12/16/2024 12:41 PM EDT) Only the most recent of2 resultswithin the time period is included. AMYLASE 36 25 - 115 U/L TB 12/16/2024 12:4 1 PM EDT 12/16/2024 12:44 PM EDT Narrative CLINISYNC - 12/16/2024 1:22 PM EDT Architizero DO CLINISYNC Final Result Performing Organization Address City/[facility]/ZIP Co de Phone Number [facility] * (ABNORMAL) TBH URINE MICROSCOPIC ONLY (12/15/2024 [...] us Yogesh Ally DO CLINISYNC Final Result [facility] * (ABNORMAL) TBH UA (CLEAN/CATCH) KITCHEN CLEANER/MICRO IF IND. (12/15/2024 11:00 PM EDT) COLOR [...] DO CLINISYNC Final Result Performing Organization Address City/[facility]/ZIP Co de Phone Number [facility] * GLUCOSE 1 HOUR (11/30/2024 2:12 PM EDT) GLUCOSE 1 HOUR 96 <130 mg/dL TBH 11/30/2024 2:12 PM EDT 11/30/2024 2:14 PM EDT Narrative CLINISYNC - 11/30/2024 3:11 PM EDT us Yogesh Ally DO LAB BLOOD ORDERABLES Final Resul t [facility] * US OB limited 1+ fetuses [...] II, MD, PHD at 17-Nov-2024 06:24:10 AM [facility] Procedure Note Dorothy Duckworth MD - [...] signed by DOROTHY DUCKWORTH II, MD, PHD [id number] 06:24:10 AM [facility] us Yogesh Canales DO [facility] OB US PROCEDURES Final Resul t from Last 3 Months Insurance [employer] Care Teams Retail Planning Manager Relationship Specialty Start Date End Date Hazel Grady MD [address] [place] [address] PCP - General Family Medicine 07/18/24
--- OUTSIDE RECORDS SUMMARY | 2025-02-04 18:30 | XMS_ITS | Encounter Summary ---
Author Organization [facility] Address [address] [place] [address] Care Team Providers Care Strip Cleaner Name Role Phone David Awan MD Primary Care Provider [phone] Encounter Details Date Type Department Care Team (Late st Contact Info) Description 02/04/[address] [facility] OB [address] [place] [phone] Cb Canales DO [address] [place] [address] [address] [place], [place] [id number] Social History Tobacco Use Types Packs/Day Years [...] PM EDT Office Visit [facility] OB [address] [place] [address] Maryanne Whiteside PA [address] [place], [place] [id number] documented as of this encounter Visit Diagnoses Not on filedocumented in this encounter Care Teams Strip Cleaner Relationship Specialty Start Date End Date David Awan MD [address] [place] [address] PCP - General Family Medicine 07/18/24 documented as of this encounter
--- OUTSIDE RECORDS SUMMARY | 2025-02-04 18:30 | XMS_ITS | Encounter Summary ---
Author Organization [facility] Address [address] [place] [address] Care Team Providers Care Cloth Dyeing Range Tender Name Role Phone David Awan MD Primary Care Provider [phone] Encounter Details Date Type Department Care Team (Late st Contact Info) Description 01/18/2025 External Result Encounter [facility] OB [address] [place] [address] Yogesh Canales DO [address] [facility] [address] [place], [facility] Social History Tobacco Use Types [...] EDT Office Visit [facility] [address] [place] [address] Maryanne Whiteside PA [address] [place] [address] documented as of this encounter Procedures Procedure Name Priority Date/Time Associated Diagnosis Comments US OB 14+ WEEKS ANATOMY SCAN 01/18/2025 10:30 AM EDT documented in this encounter Results * US OB 14+ weeks anatomy scan (01/18/2025 10:30 AM EDT) Anatomical Region Laterality Modality Body Ultrasound 01/18/2025 10:3 0 AM EDT Narrative 01/18/2025 10:30 AM EDT THIS EXAM WAS PERFORMED AT [facility] NAME: BROOK CHOI : 2005 SEX: F Accession Number: [id number] ORDERING PHYSICIAN: YOGESH CANALES REFERRING PHYSICIAN: YOGESH CANALES Coding ----- --------- Procedures [id number]: Ultrasound, uterus, real time with image documentation, [...] EFW (oz) 14 oz EFW by: Hadlock ([id number]) Extended Tibia 56.1 mm 32w 6d 45% Tj Sales Commissions Analyst 2.0 mm Head / Face / Neck [...] Heart / Thorax RVOT view. LVOT view. 6-cgkblf-uhcerdf view. Aortic arch view. Bicaval view. Ductal [...] - 01/18/2025 THIS EXAM WAS PERFORMED AT [facility] NAME: BROOK CHOI : 2005 SEX: F Accession Number: [id number] ORDERING PHYSICIAN: YOGESH CANALES REFERRING PHYSICIAN: YOGESH CANALES Coding ----- --------- Procedures [id number]: Ultrasound, uterus, real time with imagedocumentation, and [...] EFW (oz) 14 oz EFW by: Hadlock ([id number]) Extended Tibia 56.1 mm 32w 6d 45% Tj Sales Commissions Analyst 2.0 mm Head / Face / Neck [...] Heart / Thorax RVOT view. LVOT view. 5-kvloon-czppaow view. Aortic archview. Bicaval view. Ductal arch [...] on filedocumented in this encounter Care Teams Cloth Dyeing Range Tender Relationship Specialty Start Date End Date David Awan MD [address] [place] [address] PCP - General Family Medicine 07/18/24 documented as of this encounter
--- OUTSIDE RECORDS SUMMARY | 2025-02-04 18:30 | XMS_ITS | Encounter Summary ---
Author Organization [facility] [employer] [facility] tem Address [id number] [address] [place] [address] Care Team Providers Care Service Desk Team Lead Name Role Phone Unavailable Primary Care Provider Unavailabl e Encounter Details Date Type Department Care Team (Late st Contact Info) Description 01/04/2025 Orders Only Maternal- Medicine at [facility] [address] [place] [phone] Ref Prov, [place] [address] Social History Tobacco Use Types Packs/Day Years [...] 10:58 AM EDT) Anatomical Region Laterality Modality OB-COLLECTIONS MANAGER Ultrasound us Not In System Ref Prov IMG US ORDERABLES Final R esult * Ultrasound limited 1 or more fetus (01/04/2025 10:56 AM EDT) Anatomical Region Laterality Modality OB-COLLECTIONS MANAGER Ultrasound us Not In System Ref Prov IMG US ORDERABLES Final R esult * Ultrasound limited 1 or more fetus (01/04/2025 10:55 AM EDT) Anatomical Region Laterality Modality OB-COLLECTIONS MANAGER Ultrasound us Not In System Ref Prov IMG US ORDERABLES Final R esult * Ultrasound limited 1 or more fetus (01/04/2025 10:54 AM EDT) Anatomical Region Laterality Modality OB-COLLECTIONS MANAGER Ultrasound us Not In System Ref Prov IMG US ORDERABLES Final R esult * Ultrasound limited 1 or more fetus (01/04/2025 10:51 AM EDT) Anatomical Region Laterality Modality OB-COLLECTIONS MANAGER Ultrasound us Not In System Ref Prov IMG US ORDERABLES Final R esult documented in this encounter Visit Diagnoses Not on filedocumented in this encounter
--- OUTSIDE RECORDS SUMMARY | 2025-02-04 18:30 | XMS_ITS | Encounter Summary ---
Author Organization [facility] Address [address] [place] [address] Care Team Providers Care Lion Hunter Name Role Phone Hazel Grady MD Primary Care Provider [phone] Encounter Details Date Type Department Care Team (Late st Contact Info) Description 07/19/2024 Clinisync Result Encounter [facility] External Department Unsolicited Yogesh Canales DO [address] [facility] [address] [place], [place] [address] Social History Tobacco Use Types Packs/Day Years [...] Office Visit [facility] OB [address] [facility] [facility] [phone] Maryanne Whiteside PA [address] [facility] [place] [address] documented as of this encounter Procedures Procedure Name Priority Date/Time Associated Diagnosis Comments US OB TRANSVAGINAL 07/19/2024 4: 28 AM EST documented in this encounter Results * US OB TRANSVAGINAL (07/19/2024 4:28 AM EST) Anatomical Region Laterality Modality Other 07/19/2024 4:28 AM EST Narrative 07/19/2024 4:31 [place] [address] Ultrasound Report Signed Patient: JIMBO DOE MR#: [id number] : 2005 Acct:[id number] Age/Sex: 18 / F ADM Date: 07/18/24 Loc: [facility] Attending Dr: Yogesh Canales D.O. Ordering Physician: Yogesh Canales D.O. Date of Service: 07/18/24 Procedure(s): US OB transvaginal Accession Number(s): [id number] cc: Yogesh Canales D.O.; HAZEL GRADY [place] [address] Patient Name: JIMBO DOE MRN: [id number] date: 2005 Sex: F Assigned Patient Location: [facility] Current Patient Location: Accession/Order Number: [id number] Exam Date: 07/18/2024 10:06 Report Date: 07/19/2024 [...] Signed By: 07/19/24 0431 DD/ 0428 TD/TT: Rn Hospice: Procedure Note Radiology, Radiologist, - 07/19/2024 [place] [address] Ultrasound Report Signed Patient: JIMBO DOE RMR#: [id number] : 2005Acct:[id number] Age/Sex: 18 / FADM Date: 07/18/24 Loc: [facility] Attending Dr: Yogesh Canales D.O. Ordering Physician: Yogesh Canales D.O. Date of Service: 07/18/24 Procedure(s): US OB transvaginal Accession Number(s): [id number] cc: Yogesh Canales D.O.; HAZEL GRADY [place] [address] Patient Name: JIMBO DOE MRN: [id number] date: 2005 Sex: F Assigned Patient Location: [facility] Current Patient Location: Accession/Order Number: [id number] Exam Date: 07/18/2024 10:06 Report Date: 07/19/2024 [...] M.D. Signed By:07/19/24 0431 DD/ 0428 TD/TT: Rn Hospice: us Yogesh Canales DO [facility] Final Result documented in this encounter Visit Diagnoses Not on filedocumented in this encounter Care Teams Lion Hunter Relationship Specialty Start Date End Date Hazel Grady MD [address] [place] [address] PCP - General Family Medicine 07/18/24 documented as of this encounter
--- OUTSIDE RECORDS SUMMARY | 2025-02-04 18:30 | XMS_ITS | Encounter Summary ---
Author Organization [facility] Address [address] [place] [address] Care Team Providers Care Technical Sourcing Recruiter Name Role Phone David Awan MD Primary Care Provider [phone] Encounter Details Date Type Department Care Team (Late st Contact Info) Description 01/25/[address] [facility] OB [address] [place] [address] Cb Canales DO [address] [place], [facility] Social History Tobacco Use Types [...] Office Visit [facility] OB [address] [place] [address] Maryanne Whiteside PA [address] [place], [place] [phone] documented as of this encounter Visit Diagnoses Not on filedocumented in this encounter Care Teams Technical Sourcing Recruiter Relationship Specialty Start Date End Date David Awan MD [address] [place] [address] PCP - General Family Medicine 07/18/24 documented as of this encounter
--- OUTSIDE RECORDS SUMMARY | 2025-02-04 18:30 | XMS_ITS | Encounter Summary ---
Author Organization [facility] Address [address] [place] [address] Care Team Providers Care Group Leader Name Role Phone David Awan MD Primary Care Provider [phone] Encounter Details Date Type Department Care Team (Late st Contact Info) Description 07/18/2024 Abstract [facility] OB [address] [facility] [place] [phone] Cb Canales DO [address] [place] [address] Dr [place], [place] [id number] Social History Tobacco Use Types Packs/Day Years [...] 02/12/2025 1:50 PM EDT Office Visit [facility] OB [address] [facility] [place] [address] Maryanne Whiteside PA [address] [facility] [address] [place], [place] [id number] documented as of this encounter Visit Diagnoses Not on filedocumented in this encounter Care Teams Group Leader Relationship Specialty Start Date End Date David Awan MD [address] [place] [address] PCP - General Family Medicine 07/18/24 documented as of this encounter
--- OUTSIDE RECORDS SUMMARY | 2025-02-04 18:30 | XMS_ITS | Encounter Summary ---
Author Organization [facility] Address [address] [place] [address] Care Team Providers Care Story Teller Name Role Phone Hazel Grady MD Primary Care Provider [phone] Encounter Details Date Type Department Care Team (Late st Contact Info) Description 01/24/2025 Clinisync Result Encounter [facility] External Department Unsolicited Yogesh Canales DO [address] [facility] [address] [place], [place] [address] Social History Tobacco Use Types Packs/Day Years [...] Visit [facility] BCP OB [address] [facility] [place] [address] Maryanne Whiteside PA [address] [facility] [place] [address] documented as of this encounter Procedures Procedure Name Priority Date/Time Associated Diagnosis Comments US OB BPP W NON-STRESS 01/24/2025 10:38 AM EDT documented in this encounter Results * US OB BPP W NON-STRESS (01/24/2025 10:38 AM EDT) Anatomical Region Laterality Modality Other 01/24/2025 10:3 8 AM EDT Narrative 01/24/2025 10:41 [place] [address] Ultrasound Report Signed Patient: JIMBO DOE MR#: [id number] : 2005 Acct:[id number] Age/Sex: 19 / F ADM Date: 01/24/25 Loc: [facility] 250-[address]: Yogesh Canales D.O. Ordering Physician: Yogesh Canales D.O. Date of Service: 01/24/25 Procedure(s): US OB BPP w non-stress Accession Number(s): [id number] cc: Yogesh Canales D.O.; HAZEL GRADY [place] [id number] Patient Name: JIMBO DOE MRN: [id number] date: 2005 Sex: F Assigned Patient Location: [facility] Current Patient Location: [facility] Accession/Order Number: [id number] Exam Date: 01/24/2025 10:33 Report Date: 01/24/2025 [...] Nascimento M.D. 01/24/2025 10:38 AM Dictation Location: [place] [address] Electronically authenticated by: [id number] Y Date: 01/24/2025 10:38 Dictated By: Aparna Nascimento M.D. Signed By: 01/24/25 1041 DD/ 1038 TD/TT: Delivery Stock Clerk: Procedure Note Radiology, Radiologist, MD - 01/24/2025 [place] [address] Ultrasound Report Signed Patient: JIMBO DOE RMR#: [id number] : 2005Acct:[id number] Age/Sex: 19 / FADM Date: 01/24/25 Loc: [place] [address]- Attending Dr: Yogesh Canales D.O. Ordering Physician: Yogesh Canales D.O. Date of Service: 01/24/25 Procedure(s): US OB BPP w non-stress Accession Number(s): [id number] cc: Yogesh Canales D.O.; HAZEL GRADY [place] [address] Patient Name: JIMBO DOE MRN: [facility]:[id number] date: 2005 Sex: F Assigned Patient Location: [facility] Current Patient Location: [facility] Accession/Order Number: [id number] Exam Date: 01/24/2025 10:33 Report Date: 01/24/2025 [...] Nascimento M.D. 01/24/2025 10:38 AM Dictation Location: [place] [address] Electronically authenticated by: [id number] Y Date: 0:38 Dictated By: Aparna Nascimento M.D. Signed By:01/24/25 1041 DD/ 1038 TD/TT: Delivery Stock Clerk: us Yogesh Ally DO [facility] Final Result documented in this encounter Visit Diagnoses Not on filedocumented in this encounter Care Teams Story Teller Relationship Specialty Start Date End Date Hazel Grady MD [address] [place] [address] PCP - General Family Medicine 07/18/24 documented as of this encounter
--- OUTSIDE RECORDS SUMMARY | 2025-02-04 18:30 | XMS_ITS | Encounter Summary ---
Author Organization [facility] Address [address] [place] [address] Care Team Providers Care Sack Cleaning Hand Name Role Phone David Awan MD Primary Care Provider Encounter Details Date Type Department Care Team (Late st Contact Info) Description 02/01/2025 Bamboo flowsheet [facility] OB [address] [facility] [place] [phone] Maryanne Whiteside PA [address] [place] [address] Dr [place], [id number] Social History [...] [address] [facility] [place] [phone] Maryanne Whiteside PA [address] [place] [address] [place], [place] [phone] documented as of this encounter Visit Diagnoses Not on filedocumented in this encounter Care Teams Sack Cleaning Hand Relationship Specialty Start Date End Date David Awan MD [address] [place] [address] PCP - General Family Medicine 07/18/24 documented as of this encounter
--- OUTSIDE RECORDS SUMMARY | 2025-02-04 18:31 | XMS_ITS | CCD ---
Author Organization [facility] [place] [facility] Care Team Providers Care Grinder Operator Automatic Name Role Phone Almaz Huerta Unavailable HAZEL [...] YOGESH Attending Unavailable LYNETTE GUNTER Attending Unavailable ALLY, YOGESH Attending Unavailable ALLY, YOGESH Attending Unavailable MARCI, MARYANNE Attending Unavailable ALLY, YOGESH Attending Unavailable MARCI, MARYANNE Attending Unavailable Allergies Allergy Classification Reported Allergen(s) Allergy Type Date of Onset Reaction(s) Facility (20 sources) Amoxicillin; Translations: [amoxicillin] Drug Allergy 4 swelling, Rash [facility] Repository (1 source) Amoxicillin Drug Allergy 6 [facility] Repository (1 source) Amoxicillin Drug Allergy 4 [facility] Repository Medications Current Medications Medication Drug [...] low weight; and growth retardation (2 sources) Osqnt-wks-epsoc baby; Translations: [Bigfoot small for gestational age, unspecified weight] 02-01-2025 Episodic Past or Other Problems Problem Classification Problem Date Documented Da te Episodic/Chronic Administrative/social admission (1 source) Encounter for pre-employment examination Onset: 01-21-2022 Resolved: 01-21-2022 Episodic Results Test Name Value Interpretation Reference Range Facility [facility] TOTAL PROTEIN 24 HOUR UR INEon 02-01-2025 Interpretation and review of laboratory results [facility] (U[facility] [Mass/Vol] 12.1 mg/dL High [facility] - 11.9 mg/dL [facility] TOTAL PROTEIN 24 HOUR URINE 157.3 High [facility] TOTAL VOLUME 24 HOUR URINE 1300 mL/24hr [facility] Urinalysis macro (dipstick) panel (U)on 02-01-2025 Bilirubin, UA Negative Negative - 4(70) +++ mg/dL [facility] Blood, UA Negative Negative - 50 Sam/mcL [facility] Clarity, UA Clear [facility] Color, UA Yellow [facility] Glucose, UA Negative Negative - 1999(110) ++++ mg/dL [facility] Interpretation and review of laboratory results Abnormal [facility] Ketones, UA Negative Negative - 160(16) ++++ mg/dL [facility] Leukocytes, UA Trace Negative - 500+++ Supa/mcL [facility] Nitrite, UA Negative Negative - Positive [facility] pH, UA 7 5 - 9 [facility] Protein, UA Negative Negative - 1999(20) ++++ mg/dL [facility] Spec Grav, UA 1.02 1 - 1.03 [facility] Urobilinogen, UA 0.2 0.2 - 12 mg/dL [facility] BPP W NON-STRESS on 01-31-2025 [place] [address] Ultrasound Report Signed Patient: FRANCES DOE MR#: [id number] : 2005 Acct:[id number] Age/Sex: 19 / F ADM Date: 01/31/25 Loc: [facility] 254-[address]: Yogesh Canales D.O. Ordering Physician: Yogesh Canales D.O. Date of Service: 01/31/25 Procedure(s): US OB BPP w non-stress Accession Number(s): [id number] cc: Yogesh Canales D.O.; HAZEL GRADY [place] [address] Patient Name: FRANCES DOE MRN: [id number]:[id number] date: 2005 Sex: F Assigned Patient Location: [facility] Current Patient Location: [facility] Accession/Order Number: [id number] Exam Date: 01/31/2025 11:05 Report Date: 01/31/2025 11:08 At the request of: YOGESH CANALES DO Procedure: US OB BPP w non-stress BIOPHYSICAL PROFILE: CLINICAL INFORMATION: Oligohydramnios COMPARISON: 01/25/2025 There is a single live intrauterine gestation in cephalic presentation. The reported gestational age is 35 weeks 4 days. The heart rate [id number] beats per minute. FINDINGS: TONE: 1 or [...] Nascimento M.D. 01/31/2025 11:08 AM Dictation Location: [place] [address] Electronically authenticated by: [id number] Y Date: 01/31/2025 11:08 Dictated By: Aparna Nascimento M.D. Signed By: 01/31/25 1111 DD/ 1108 TD/TT: Instrument Checker: [facility] Radiology, Radiologist, - 01/31/2025 [place] [address] Ultrasound Report Signed Patient: FRANCES DOE MR#: [id number] : 2005 Acct:[id number] Age/Sex: 19 / F ADM Date: 01/31/25 Loc: [facility] 254-[address]: Yogesh Canales D.O. Ordering Physician: Yogesh Canales D.O. Date of Service: 01/31/25 Procedure(s): US OB BPP w non-stress Accession Number(s): [id number] cc: Yogesh Canales D.O.; HAZEL GRADY The [place] [id number] Patient Name: FRANCES DOE MRN: [facility]:[id number] date: 2005 Sex: F Assigned Patient Location: [facility] Current Patient Location: [facility] Accession/Order Number: [id number] Exam Date: 01/31/2025 11:05 Report Date: 01/31/2025 11:08 At the request of: YOGESH CANALES DO Procedure: US OB BPP w non-stress BIOPHYSICAL PROFILE: CLINICAL INFORMATION: Oligohydramnios COMPARISON: 01/25/2025 There is a single live intrauterine gestation in cephalic presentation. The reported gestational age is 35 weeks 4 days. The heart rate [id number] beats per minute. FINDINGS: TONE: 1 or [...] Nascimento M.D. 01/31/2025 11:08 AM Dictation Location: [place] [address] Electronically authenticated by: [id number] Y Date: 01/31/2025 11:08 Dictated By: Aparna Nascimento M.D. Signed By: 01/31/25 1111 DD/ 1108 TD/TT: Instrument Checker: [facility] Radiology Study observation (narrative) [facility] US OB BPP W NON-STRESS Ordered By: Radiologist Radiology on 01-31-2025 [facility] [employer] Work Phone: US OB BPP W NON-STRESS on 01-25-[address] [address] Ultrasound Report Signed Patient: FRANCES DOE MR#: [id number] : 2005 Acct:[id number] Age/Sex: 19 / F ADM Date: 01/25/25 Loc: [facility] Attending Dr: Yogesh Canales D.O. Ordering Physician: Yogesh Canales D.O. Date of Service: 01/25/25 Procedure(s): US OB BPP w non-stress Accession Number(s): [id number] cc: Yogesh Canales D.O.; HAZEL GRADY The [place] [id number] Patient Name: FRANCES DOE MRN: [facility]:[id number] date: 2005 Sex: F Assigned Patient Location: [facility] Current Patient Location: Accession/Order Number: [id number] Exam Date: 01/25/2025 14:59 Report Date: 01/25/2025 15:01 At the request of: YOGESH CANALES DO Procedure: US OB BPP w non-stress Biophysical profile. Reason for exam: Oligohydramnios. COMPARISON: BPP 01/24/2025. TECHNIQUE: Transabdominal imaging of the gravid uterus was obtained. FINDINGS: Search Engine Optimization Specialist reports a BPP of 8 out of 8. JEROD is normal 11.4 cm. heart rate 159 bpm. US/US OB BPP w non-stress Impression: BPP 8 out of 8. Impression dictated by: Stanislav Francisco Jr., D.O. 01/25/2025 3:01 PM Dictation Location: [place] [address] Electronically authenticated by: [id number] Y Date: 01/25/2025 15:01 Dictated By: Stanislav Francisco M.D. Signed By: 01/25/25 1504 DD/ 1501 TD/TT: Instrument Checker: [facility] Radiology, Radiologist, MD - 01/25/2025 [place] [address] Ultrasound Report Signed Patient: FRANCES DOE MR#: [id number] : 2005 Acct:[id number] Age/Sex: 19 / F ADM Date: 01/25/25 Loc: [facility] Attending : Yogesh Canales D.O. Ordering Physician: Yogesh Canales D.O. Date of Service: 01/25/25 Procedure(s): US OB BPP w non-stress Accession Number(s): [id number] cc: Yogesh Canales D.O.; HAZEL GRADY [place] [id number] Patient Name: FRANCES DOE MRN: [facility]:[id number] date: 2005 Sex: F Assigned Patient Location: [facility] Current Patient Location: Accession/Order Number: [id number] Exam Date: 01/25/2025 14:59 Report Date: 01/25/2025 15:01 At the request of: YOGESH CANALES DO Procedure: US OB BPP w non-stress Biophysical profile. Reason for exam: Oligohydramnios. COMPARISON: BPP 01/24/2025. TECHNIQUE: Transabdominal imaging of the gravid uterus was obtained. FINDINGS: Search Engine Optimization Specialist reports a BPP of 8 out of 8. JEROD is normal 11.4 cm. heart rate 159 bpm. US/US OB BPP w non-stress Impression: BPP 8 out of 8. Impression dictated by: Stanislav Francisco Jr., D.O. 01/25/2025 3:01 PM Dictation Location: [place] [address] Electronically authenticated by: [id number] Y Date: 01/25/2025 15:01 Dictated By: Stanislav Francisco M.D. Signed By: 01/25/25 1504 DD/ 1501 TD/TT: Instrument Checker: [facility] Radiology Study observation (narrative) [facility] US OB BPP W NON-STRESS Ordered By: Radiologist Radiology on 01-25-2025 [facility] Work Phone: Urinalysis macro (dipstick) panel (U)on 01-25-2025 Bilirubin, UA Negative Negative - 4(70) +++ mg/dL [facility] Blood, UA Negative Negative - 50 Sam/mcL [facility] Clarity, UA Clear [facility] Color, UA Yellow [facility] Glucose, UA Negative Negative - 1999(110) ++++ mg/dL [facility] Interpretation and review of laboratory results Normal [facility] Ketones, UA Negative Negative - 160(16) ++++ mg/dL [facility] Leukocytes, UA Moderate Negative - 500+++ Supa/mcL [facility] Nitrite, UA Negative Negative - Positive [facility] pH, UA 7 5 - 9 [facility] Protein, UA Trace Negative - 1999(20) ++++ mg/dL [facility] Spec Grav, UA 1.015 1 - 1.03 [facility] Urobilinogen, UA 0.2 0.2 - 12 mg/dL [facility] US OB BPP W NON-STRESS on 01-24-2025 [place] [address] Ultrasound Report Signed Patient: FRANCES DOE MR#: [id number] : 2005 Acct:[id number] Age/Sex: 19 / F ADM Date: 01/24/25 Loc: [facility] 250- Attending Dr: Yogesh Canales D.O. Ordering Physician: Yogesh Canales D.O. Date of Service: 01/24/25 Procedure(s): US OB BPP w non-stress Accession Number(s): [id number] cc: Yogesh Canales D.O.; HAZEL GRADY [place] [address] Patient Name: FRANCES DOE MRN: [facility]:[id number] date: 2005 Sex: F Assigned Patient Location: [facility] Current Patient Location: [facility] Accession/Order Number: [id number] Exam Date: 01/24/2025 10:33 Report Date: 01/24/2025 [...] Nascimento M.D. 01/24/2025 10:38 AM Dictation Location: [place] [address] Electronically authenticated by: [id number] Y Date: 01/24/2025 10:38 Dictated By: Aparna Nascimento M.D. Signed By: 01/24/25 1041 DD/ 1038 TD/TT: Instrument Checker: [facility] Radiology, Radiologist, - 01/24/2025 [place] [address] Ultrasound Report Signed Patient: FRANCES DOE MR#: [id number] : 2005 Acct:[id number] Age/Sex: 19 / F ADM Date: 01/24/25 Loc: [facility] 250-[address]: Yogesh Canales D.O. Ordering Physician: Yogesh Canales D.O. Date of Service: 01/24/25 Procedure(s): US OB BPP w non-stress Accession Number(s): [id number] cc: Yogesh Canales D.O.; HAZEL GRADY The [address] [address] Patient Name: FRANCES DOE MRN: [facility]:[id number] date: 2005 Sex: F Assigned Patient Location: [facility] Current Patient Location: [facility] Accession/Order Number: [id number] Exam Date: 01/24/2025 10:33 Report Date: 01/24/2025 [...] Nascimento M.D. 01/24/2025 10:38 AM Dictation Location: [place] [address] Electronically authenticated by: [id number] Y Date: 01/24/2025 10:38 Dictated By: Aparna Nascimento M.D. Signed By: 01/24/25 1041 DD/ 1038 TD/TT: Instrument Checker: [facility] Radiology Study observation (narrative) [facility] US OB BPP W NON-STRESS Ordered By: Radiologist Radiology on 01-24-2025 [facility] [employer] Work Phone: US OB BPP W NON-STRESS on 01-17-2025 [place] [address] Ultrasound Report Signed Patient: FRANCES DOE MR#: [id number] : 2005 Acct:[id number] Age/Sex: 19 / F ADM Date: 01/17/25 Loc: [facility] 254-[address]: Yogesh Canales D.O. Ordering Physician: Yogesh Canales D.O. Date of Service: 01/17/25 Procedure(s): US OB BPP w non-stress Accession Number(s): [id number] cc: Yogesh Canales D.O.; HAZEL GRADY [place] [address] Patient Name: FRANCES DOE MRN: [facility]:[id number] date: 2005 Sex: F Assigned Patient Location: [facility] Current Patient Location: [facility] Accession/Order Number: [id number] Exam Date: 01/17/2025 10:50 Report Date: 01/17/2025 10:51 At the request of: YGOESH CANALES DO Procedure: US OB BPP w non-stress BIOPHYSICAL PROFILE: CLINICAL INFORMATION: oligohydramnios COMPARISON: 01/10/2025 There is a single live intrauterine gestation in cephalic presentation. The reported gestational age is 33 weeks 4 days. The heart rate [id number] beats per minute. FINDINGS: TONE: 1 or [...] Nascimento M.D. 01/17/2025 10:51 AM Dictation Location: [place] [address] Electronically authenticated by: [id number] Y Date: 01/17/2025 10:51 Dictated By: Aparna Nascimento M.D. Signed By: 01/17/25 1054 DD/ 1051 TD/TT: Instrument Checker: [facility] Radiology, Radiologist, MD [place] 01/17/2025 [place] [address] Ultrasound Report Signed Patient: FRANCES DOE MR#: [id number] : 2005 Acct:[id number] Age/Sex: 19 / F ADM Date: 01/17/25 Loc: [facility] 254-[address]: Yogesh Canales D.O. Ordering Physician: Yogesh Canales D.O. Date of Service: 01/17/25 Procedure(s): US OB BPP w non-stress Accession Number(s): [id number] cc: Yogesh Canales D.O.; HAZEL GRADY [place] [address] Patient Name: FRANCES DOE MRN: [facility]:[id number] date: 2005 Sex: F Assigned Patient Location: [facility] Current Patient Location: [facility] Accession/Order Number: [id number] Exam Date: 01/17/2025 10:50 Report Date: 01/17/2025 10:51 At the request of: YOGESH CANALES DO Procedure: US OB BPP w non-stress BIOPHYSICAL PROFILE: CLINICAL INFORMATION: oligohydramnios COMPARISON: 01/10/2025 There is a single live intrauterine gestation in cephalic presentation. The reported gestational age is 33 weeks 4 days. The heart rate [id number] beats per minute. FINDINGS: TONE: 1 or [...] Nascimento M.D. 01/17/2025 10:51 AM Dictation Location: [place] [address] Electronically authenticated by: [id number] Y Date: 01/17/2025 10:51 Dictated By: Aparna Nascimento M.D. Signed By: 01/17/25 1054 DD/ 1051 TD/TT: Instrument Checker: [facility] Radiology Study observation (narrative) [facility] US OB BPP W NON-STRESS Ordered By: Radiologist Radiology on 01-17-2025 [facility] Work Phone: ALL CBC WITH AUTO DIFFon BASOPHILS ABSOLUTE AUTO 0 [facility] Basophils/100 WBC (Bld) 0.1 % Low 0.2 - 2.0 % [facility] Eosinophils/100 WBC (Bld) 0.2 % Low 0.9 - 7.0 % [facility] Erythrocyte distribution width (RBC) [Ratio] 13 % 11.0 - 15.0 % [facility] Hematocrit (Bld) [Volume fraction] 31.2 % Low 36.0 - 48.0 % [facility] Hemoglobin (Bld) [Mass/Vol] 10.3 g/dL Low 12.0 - 16.0 g/dL [facility] IMMATURE GRANULOCYTES ABS AUTO 0.02 [facility] Immature granulocytes/100 WBC (Bld) 0.2 % 0.0 - 0.5 % [facility] Interpretation and review of laboratory results [facility]normal [facility] LYMPHOCYTES ABSOLUTE AUTO 1.4 [facility] Lymphocytes/100 WBC (Bld) 14.2 % Low 20.5 - 60.0 % [facility] MCH (RBC) [Entitic mass] 27.2 pg 26.7 - 34.0 pg [facility] MCHC (RBC) [Mass/Vol] 33 g/dL 29.9 - 35.2 g/dL [facility] MCV (RBC) [Entitic vol] 82.3 fL 81.0 - 99.0 fL [facility] MONOCYTES ABSOLUTE AUTO 0.6 [facility] Monocytes/100 WBC (Bld) 6.1 % 1.7 - 12.0 % [facility] NEUTROPHILS ABSOLUTE AUTO 7.7 High [facility] Neutrophils/100 WBC (Bld) 79.2 % High [...] OB BPP W NON-STRESS on 01-10-2025 [place] [address] Ultrasound Report Signed Patient: FRANCES DOE MR#: [id number] : 2005 Acct:[id number] Age/Sex: 19 / F ADM Date: 01/10/25 Loc: [facility] 250-[address]: Yogesh Canales D.O. Ordering Physician: Yogesh Canales D.O. Date of Service: 01/10/25 Procedure(s): US OB BPP w non-stress Accession Number(s): [id number] cc: Yogesh Canales D.O.; HAZEL GRADY [place] [address] Patient Name: FRANCES DOE MRN: [facility]:[id number] date: 2005 Sex: F Assigned Patient Location: [facility] Current Patient Location: [facility] Accession/Order Number: [id number] Exam Date: 01/10/2025 10:39 Report Date: 01/10/2025 10:44 At the request of: YOGESH CANALES DO Procedure: US OB BPP w non-stress BIOPHYSICAL PROFILE: CLINICAL INFORMATION: OLIGOHYDRAMNIOS O41.09X1 COMPARISON: 01/03/2025 There is a single live intrauterine gestation in cephalic presentation. The reported gestational age is 32 weeks 4 days. The heart rate [id number] beats per minute. FINDINGS: TONE: 1 or [...] Nascimento M.D. 01/10/2025 10:44 AM Dictation Location: [place] [address] Electronically authenticated by: [id number] Y Date: 01/10/2025 10:44 Dictated By: Aparna Nascimento M.D. Signed By: 01/10/25 1047 DD/ 1044 TD/TT: Instrument Checker: [facility] Radiology, Radiologist, MD - 01/10/2025 [place] [address] Ultrasound Report Signed Patient: FRANCES DOE MR#: [id number] : 2005 Acct:[id number] Age/Sex: 19 / F ADM Date: 01/10/25 Loc: [place] [address]: Yogesh Canales D.O. Ordering Physician: Yogesh Canales D.O. Date of Service: 01/10/25 Procedure(s): US OB BPP w non-stress Accession Number(s): [id number] cc: Yogseh Canales D.O.; HAZEL GRADY [place] [address] Patient Name: FRANCES DOE MRN: [facility]:[id number] date: 2005 Sex: F Assigned Patient Location: [facility] Current Patient Location: [facility] Accession/Order Number: [id number] Exam Date: 01/10/2025 10:39 Report Date: 01/10/2025 10:44 At the request of: YOGESH CANALES DO Procedure: US OB BPP w non-stress BIOPHYSICAL PROFILE: CLINICAL INFORMATION: OLIGOHYDRAMNIOS O41.09X1 COMPARISON: 01/03/2025 There is a single live intrauterine gestation in cephalic presentation. The reported gestational age is 32 weeks 4 days. The heart rate bjqzxwyu337 beats per minute. FINDINGS: TONE: 1 or [...] Nascimento M.D. 01/10/2025 10:44 AM Dictation Location: [place] [address] Electronically authenticated by: [id number] Y Date: 01/10/2025 10:44 Dictated By: Aparna Nascimento M.D. Signed By: 01/10/25 1047 DD/ 1044 TD/TT: Instrument Checker: [facility] Radiology Study observation (narrative) [facility] OB BPP W NON-STRESS Ordered By: Radiologist Radiology on 01-10-2025 [facility] [employer] Work Phone: AMNISUREon 01-06-2025 [facility] AMNISURE Negative NEGATIVE [facility] are [facility] OB BPP W NON-STRESS on 01-03-2025 [place] [address] Ultrasound Report Signed Patient: FRANCES DOE MR#: [id number] : 2005 Acct:[id number] Age/Sex: 19 / F ADM Date: 01/03/25 Loc: [facility] 251-[address]: Yogesh Canales D.O. Ordering Physician: Yogesh Canales D.O. Date of Service: 01/03/25 Procedure(s): US OB BPP w non-stress Accession Number(s): [id number] cc: Yogesh Canales D.O.; HAZEL GRADY The [place] [id number] Patient Name: FRANCES DOE MRN: [facility]:[id number] date: 2005 Sex: F Assigned Patient Location: [facility] Current Patient Location: [facility] Accession/Order Number: [id number] Exam Date: 01/03/2025 10:37 Report Date: 01/03/2025 [...] Nascimento M.D. 01/03/2025 10:43 AM Dictation Location: [place] [address] Electronically authenticated by: [id number] Y Date: 01/03/2025 10:43 Dictated By: Aparna Nascimento M.D. Signed By: 01/03/25 1046 DD/ 1043 TD/TT: Instrument Checker: [facility] Radiology, Radiologist, - 01/03/[address] [address] Ultrasound Report Signed Patient: FRANCES DEO MR#: [id number] : 2005 Acct:[id number] Age/Sex: 19 / F ADM Date: 01/03/25 Loc: [facility] 251-[address]: Yogesh Canales D.O. Ordering Physician: Yogesh Canales D.O. Date of Service: 01/03/25 Procedure(s): US OB BPP w non-stress Accession Number(s): [id number] cc: Yogesh Canales D.O.; HAZEL GRADY [place] [address] Patient Name: FRANCES DOE MRN: [facility]:[id number] date: 2005 Sex: F Assigned Patient Location: [facility] Current Patient Location: [facility] Accession/Order Number: [id number] Exam Date: 01/03/2025 10:37 Report Date: 01/03/2025 10:43 At the request of: YOGESH CANALES DO Procedure: US OB BPP w non-stress BIOPHYSICAL PROFILE: CLINICAL INFORMATION: Oligohydramnios O41.03x1 COMPARISON: 07/18/2024 There is a single live intrauterine gestation in cephalic presentation. The reported gestational age is 31 weeks 4 days. The heart rate [id number] beats per minute. FINDINGS: TONE: 1 or [...] Nascimento M.D. 01/03/2025 10:43 AM Dictation Location: [place] [address] Electronically authenticated by: [id number] Y Date: 01/03/2025 10:43 Dictated By: Aparna Nascimento M.D. Signed By: 01/03/25 1046 DD/ 1043 TD/TT: Instrument Checker: [facility] Radiology Study observation (narrative) [facility] US OB BPP W NON-STRESS Ordered By: Radiologist Radiology on 01-03-2025 [facility] [employer] Work Phone: US OB FOLLOW UP [...] II, MD, PHD at 29-Dec-2024 12:17:39 PM [facility] Normal Not Available Comment on above: Order Comment: US OB SCAN FOR GROWTH Estimated Date of Delivery: 03/03/25 Gestational Age as of 12/06/2024: 27w4d Urinalysis macro (dipstick) panel (U)on 12-28-2024 Bilirubin, UA Negative Negative - 4(70) +++ mg/dL [facility] Blood, UA Negative Negative - 50 Sam/mcL [facility] Clarity, UA Clear [facility] re Color, UA Yellow [facility] Glucose, UA Negative Negative - 1999(110) ++++ mg/dL [facility] Interpretation and review of laboratory results Abnormal [facility] re Ketones, UA Negative Negative - 160(16) ++++ mg/dL [facility] Leukocytes, UA Positive Negative - 500+++ Supa/mcL [facility] Comment on above: small Nitrite, UA Negative Negative - Positive [facility] pH, UA 7 5 - 9 [facility] e Protein, UA Positive Negative - 1999(20) ++++ mg/dL [facility] Comment on above: 30mg/dL Spec Grav, UA 1.015 1 - 1.03 [facility] Urobilinogen, UA 0.2 0.2 - 12 mg/dL [facility] ALL CBC WITH AUTO DIFFon BASOPHILS ABSOLUTE AUTO 0 [facility] Basophils/100 WBC (Bld) 0.2 % 0.2 - 2.0 % [facility] Eosinophils/100 WBC (Bld) 0.4 % Low 0.9 - 7.0 % [facility] Erythrocyte distribution width (RBC) [Ratio] 12.7 % 11.0 - 15.0 % [facility] Hematocrit (Bld) [Volume fraction] 34 % Low 36.0 - 48.0 % [facility] e Hemoglobin (Bld) [Mass/Vol] 11.5 g/dL Low 12.0 - 16.0 g/dL [facility] IMMATURE GRANULOCYTES ABS AUTO 0.06 High [facility] Immature granulocytes/100 WBC (Bld) 0.5 % 0.0 - 0.5 % [facility] Interpretation and review of laboratory results Abnormal [facility] re LYMPHOCYTES ABSOLUTE AUTO 2.5 [facility] Lymphocytes/100 WBC (Bld) 19.6 % Low 20.5 - 60.0 % [facility] MCH (RBC) [Entitic mass] 28 pg 26.7 - 34.0 pg [facility] MCHC (RBC) [Mass/Vol] 33.8 g/dL 29.9 - 35.2 g/dL [facility] MCV (RBC) [Entitic vol] 82.7 fL 81.0 - 99.0 fL [facility] MONOCYTES ABSOLUTE AUTO 0.8 [facility] Monocytes/100 WBC (Bld) 6.5 % 1.7 - 12.0 % [facility] NEUTROPHILS ABSOLUTE AUTO 9.3 High [facility] Neutrophils/100 WBC (Bld) 72.8 % 43.0 - 75.0 % [facility] Platelet mean volume (Bld) [Entitic vol] 9.5 fL 9.5 - 13.5 fL [facility] EO # 0.1 [facility] PLT 306 [facility] RBC 4.11 Low [facility] WBC 12.7 High [facility] UA (CLEAN/CATCH) 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 YELLOW YELLOW [facility] GLUCOSE URINE UA Negative NEGATIVE mg/dL [facility] Interpretation and review of laboratory results Abnormal [facility] Ketones Ql (U) Negative NEGATIVE mg/dL [facility] Leukocyte esterase Test strip Ql (U) LARGE Abnormal NEGATIVE [facility] NITRITE URINE Negative NEGATIVE [facility] care pH (U) 7.0 [pH] 5.0 - 9.0 [facility] PROTEIN URINE Negative NEG/TRACE mg/dL [facility] SPECIFIC GRAVITY URINE <=1.005 Abnormal 1.005 - 1.025 [facility] URINE MICROSCOPIC INDICATED YES [facility] UROBILINOGEN URINE 0.2 EU/dL 0.2 - 1.0 EU/dL [facility] Urinalysis macro (dipstick) panel (U)on 12-06-2024 Bilirubin, UA Negative Negative - 4(70) +++ mg/dL [facility] Blood, UA Negative Negative - 50 Sam/mcL [facility] Clarity, UA Clear [facility] Color, UA Yellow [facility] Glucose, UA Negative Negative - 2000(110) ++++ mg/dL [facility] Interpretation and review of laboratory results Abnormal [facility] Ketones, UA Positive Negative - 160(16) ++++ mg/dL [facility] Comment on above: trace Leukocytes, UA Trace Negative - 500+++ Supa/mcL [facility] Nitrite, UA Negative Negative - Positive [facility] pH, UA 5.5 5 - 9 [facility] Protein, UA Negative Negative - 1999(20) ++++ mg/dL [facility] Spec Grav, UA 1.03 1 - 1.03 [facility] Urobilinogen, UA 0.2 0.2 - 12 mg/dL [facility] ALL CBC WITH AUTO DIFFon BASOPHILS ABSOLUTE AUTO 0 [facility] Basophils/100 WBC (Bld) 0.2 % 0.2 - 2.0 % [facility] Eosinophils/100 WBC (Bld) 0.3 % Low 0.9 - 7.0 % [facility] Erythrocyte distribution width (RBC) [Ratio] 12.8 % 11.0 - 15.0 % [facility] Hematocrit (Bld) [Volume fraction] 34 % Low 36.0 - 48.0 % [facility] Hemoglobin (Bld) [Mass/Vol] 11.2 g/dL Low 12.0 - 16.0 g/dL [facility] IMMATURE GRANULOCYTES ABS AUTO 0.05 High [facility] Immature granulocytes/100 WBC (Bld) 0.4 % 0.0 - 0.5 % [facility] Interpretation and review of laboratory results Abnormal [facility] re LYMPHOCYTES ABSOLUTE AUTO 2.1 [facility] Lymphocytes/100 WBC (Bld) 17.3 % Low 20.5 - 60.0 % [facility] MCH (RBC) [Entitic mass] 27.7 pg 26.7 - 34.0 pg [facility] MCHC (RBC) [Mass/Vol] 32.9 g/dL 29.9 - 35.2 g/dL [facility] MCV (RBC) [Entitic vol] 84 fL 81.0 - 99.0 fL [facility] MONOCYTES ABSOLUTE AUTO 0.8 [facility] Monocytes/100 WBC (Bld) 6.6 % 1.7 - 12.0 % [facility] NEUTROPHILS ABSOLUTE AUTO 8.9 High [facility] Neutrophils/100 WBC (Bld) 75.2 % High 43.0 - 75.0 % [facility] Platelet mean volume (Bld) [Entitic vol] 9.1 fL Low 9.5 - 13.5 fL [facility] TBH EO # 0 [facility] [...] II, MD, PHD at 17-Nov-2024 06:24:10 AM [facility] Normal Not Available Comment on above: Order Comment: US OB INCOMPLETE ANATOMY Estimated Date of Delivery: 03/03/25 Gestational Age as of 11/01/2024: 22w4d Urinalysis macro (dipstick) panel (U)on 11-15-2024 Bilirubin, UA Negative Negative - 4(70) +++ mg/dL [facility] Blood, UA Negative Negative - 50 Sam/mcL [facility] Clarity, UA Clear [facility] re Color, UA Yellow [facility] Glucose, UA Negative Negative - 1999(110) ++++ mg/dL [facility] Interpretation and review of laboratory results Abnormal [facility] re Ketones, UA Negative Negative - 160(16) ++++ mg/dL [facility] Leukocytes, UA Trace Negative - 500+++ Supa/mcL [facility] Nitrite, UA Negative Negative - Positive [facility] pH, UA 6.5 5 - 9 [facility] Protein, UA Trace Negative - 1999(20) ++++ mg/dL [facility] Spec Grav, UA 1.02 1 - 1.03 [facility] Urobilinogen, UA 0.2 0.2 - 12 mg/dL [facility] Urinalysis macro (dipstick) panel (U)on 10-18-2024 Bilirubin, UA Negative Negative - 4(70) +++ mg/dL [facility] Blood, UA Negative Negative - 50 Sam/mcL [facility] Clarity, UA Clear [facility] Color, UA Yellow [facility] Glucose, UA Negative Negative - 1999(110) ++++ mg/dL [facility] Interpretation and review of laboratory results Normal [facility] re Ketones, UA Negative Negative - 160(16) ++++ mg/dL [facility] Leukocytes, UA Negative Negative - 500+++ Supa/mcL [facility] Nitrite, UA Negative Negative - Positive [facility] pH, UA 6 5 - 9 [facility] e Protein, UA Negative Negative - 1999(20) ++++ mg/dL [facility] Spec Grav, UA 1.03 1 - 1.03 [facility] Urobilinogen, UA 0.2 0.2 - 12 mg/dL [facility] RECURRENT VAGINITIS (HTRX)on 09-23-2024 ATOPOBIUM VAGINAE 21.837 Abnormal [facility] ATOPOBIUM VAGINAE Detected Abnormal [facility] BVAB 2,3 (BACTERIAL VAGINOSIS ASSOCIATED BACTERIA 2, 3); MOBILUNCUS SPP 14.391 Abnormal [facility] BVAB 2,3 (BACTERIAL VAGINOSIS ASSOCIATED BACTERIA 2, 3); MOBILUNCUS SPP Detected Abnormal [facility] WILBERT ALBICANS, PARAPSILOSIS, TROPICALIS 0 [facility] WILBERT ALBICANS, PARAPSILOSIS, TROPICALIS Not detected [facility] WILBERT GLABRATA 0 [facility] WILBERT GLABRATA Not detected [facility] WILBERT KRUSEI 0 [facility] Healt hcare WILBERT KRUSEI Not detected [facility] CHLAMYDIA TRACHOMATIS 0 [facility] CHLAMYDIA TRACHOMATIS Not detected [facility] ERMB, C; MEFA 22.056 Abnormal [facility] ERMB, C; MEFA Detected Abnormal [facility] GARDNERELLA VAGINALIS 27.529 Abnormal [facility] GARDNERELLA VAGINALIS Detected Abnormal [facility] Interpretation and review of laboratory results Abnormal [facility] re MEGASPHAERA (TYPES 1, 2) 15.923 Abnormal [facility] MEGASPHAERA (TYPES 1, 2) Detected Abnormal [facility] MYCOPLASMA GENITALIUM 0 [facility] MYCOPLASMA GENITALIUM Not detected [facility] NEISSERIA GONORRHOEAE 0 [facility] NEISSERIA GONORRHOEAE Not detected [facility] TET B, TET M 16.766 Abnormal [facility] Healthc are TET B, TET M Detected Abnormal [facility] Health are TRICHOMONAS VAGINALIS 0 [facility] TRICHOMONAS VAGINALIS Not detected [facility] GLUCOSE 1 HOURon 09-22-2024 Glucose [Mass/Vol] 114 mg/dL NINF - 13 0 mg/dL [facility] US OB [...] II, MD, PHD at 19-Oct-2024 09:01:31 AM [facility] Normal Not Available Comment on above: Order Comment: US OB ANATOMY SINGLE W US OB CERVICAL LENGTH Estimated Date of Delivery: 03/03/25 Gestational Age as of 09/21/2024: 16w5d Urinalysis macro (dipstick) panel (U)Ordered By: Vicky Rodríguez on 09-21-2024 Bilirubin, UA Negative Negative - 4(70) +++ mg/dL [facility] Blood, UA Negative Negative - 50 Sam/mcL [facility] Clarity, UA Clear [facility] Color, UA Yellow [facility] Glucose, UA Negative Negative - 1999(110) ++++ mg/dL [facility] Interpretation and review of laboratory results Normal [facility] Ketones, UA Negative Negative - 160(16) ++++ mg/dL [facility] Leukocytes, UA Negative Negative - 500+++ Supa/mcL [facility] Nitrite, UA Negative Negative - Positive [facility] pH, UA 7.5 5 - 9 [facility] Protein, UA Negative Negative - 1999(20) ++++ mg/dL [facility] Spec Grav, UA 1.02 1 - 1.03 [facility] Urobilinogen, UA 0.2 0.2 - 12 mg/dL [facility] Urinalysis macro (dipstick) panel (U)on 08-17-2024 Bilirubin, UA Negative Negative - 4(70) +++ mg/dL [facility] Blood, UA Negative Negative - 50 Sam/mcL [facility] Healthcare Clarity, UA Clear [facility] Color, UA Yellow [facility] Glucose, UA Negative Negative - 1999(110) ++++ mg/dL [facility] Interpretation and review of laboratory results Abnormal [facility] Ketones, UA Negative Negative - 160(16) ++++ mg/dL [facility] Leukocytes, UA Positive Negative - 500+++ Supa/mcL [facility] Comment on above: small Nitrite, UA Negative Negative - Positive [facility] pH, UA 6 5 - 9 [facility] Protein, UA Negative Negative - 1999(20) ++++ mg/dL [facility] Spec Grav, UA 1.03 1 - 1.03 [facility] Urobilinogen, UA 0.2 0.2 - 12 mg/dL [facility] MLR HEMOGLOBIN A1Con 024 Glucose [Mass/Vol] 111 mg/dL [facility] HbA1c (Bld) [Mass fraction] 5.5 % 4.5 - 6.2 % [facility] Comment on above: ADA RECOMMENDED LIMI T 4.0 - 6.0 ADA THERAPEUTIC TARGET < 7.0 ACTION SUGGESTED > 7.0 [facility] Urine Cultureon 08-05-2024 Bacteria identified Cx Nom (U) <9,000 colonies/ml mixed bacterial skin contaminants 2 Days PERFORMED BY: [place] [address] PATHOLOGIST METHODS TIME ANALYST ELICEO SPENCER M.D. Normal [facility] Comment on above: Performed By: #### C UU #### [address] HCG ( test) Ql (U)o n 07-18-2024 Interpretation and review of laboratory results Abnormal [facility] re Preg Test, Ur Positive Negative [facility] Urinalysis macro (dipstick) panel (U)on 07-18-2024 Bilirubin, UA Negative Negative - 4(70) +++ mg/dL [facility] Blood, UA Negative Negative - 50 Sam/mcL [facility] Clarity, UA Clear [facility] Health[facility] re Color, UA Yellow [facility] Glucose, UA Negative Negative - 1999(110) ++++ mg/dL [facility] Interpretation and review of laboratory results Normal [facility] re Ketones, UA Negative Negative - 160(16) ++++ mg/dL [facility] Leukocytes, UA Negative Negative - 500+++ Supa/mcL [facility] Nitrite, UA Negative Negative - Positive [facility] pH, UA 6.5 5 - 9 [facility] Protein, UA Negative Negative - 1999(20) ++++ mg/dL [facility] Spec Grav, UA 1.02 1 - 1.03 [facility] Urobilinogen, UA 0.2 0.2 - 12 mg/dL [facility] TBH PREG QUANT HCGon 06-26-2 024 HCG QUANTITATIVE 203 mIU/mL [facility] Comment on above: 5-50 0.2-1 WEEK 50-500 1-2 WEEKS 100-5,000 2-3 WEEKS 500-10,000 3-4 WEEKS 1,000-50,000 4-5 WEEKS 10,000-100,000 5-6 WEEKS 15,000-200,000 6-8 WEEKS 10,000-100,000 2-3 MONTHS [facility] e Quick Strepon 09-17-2023 S. pyogenes Org specific cx Ql (Throat) positve Reacción [facility] [employer] Other Quick Strep Reacción [facility] [employer] Other Test, Urineon 08-11 Beta HCG ( test) Ql (U) Negative [facility] [employer] Other Capillary Glucose POCon Glucose [Mass/Vol] 94 mg/dL Normal 55-99 [facility] Comment on above: Result Comment: Loretta mcneal RN/ Performed By: #### 2 [id number] #### [facility] [address] [place] [address] Consent for Treatmenton Consent for Treatment [id number] 0TIFF Normal [facility] Discharge Instructionson Discharge Instructions [id number] 0TIFF Normal [facility] ED Clinical Summaryon 2022 ED Clinical Summary [address] [id number] ED Clinical Summary Person Information Name: FRANCES DOE/NewShilpa Age: 17 Years : 2005 Sex: Female Language: Malagasy PCP: Hazel Grady MD Marital Status: Single [...] 07/14/2023 03:42:20 07/14/2023 03:42:20 07/14/2023 03:42:20 ADDRESS: [address] [place] [address] DR MONSERRAT Berg [facility] [id number] PHYS DOC NOTES: MEDICAL INFORMATION: Prescriptions Given: New Medications [id number], [address] [place], [place] [id number], [phone] azithromycin (azithromycin 250 mg Tab) 1 Tablets By Mouth every day for 4 Days. Refills: 0. PATIENT EDUCATION INFORMATION: Instructions: Viral Illness, Adult; Otitis Media, Adult Follow up: With: Address: When: Hazel Grady [address] [place] [address] Business (2) In 7 days 07/21/2023 DIAGNOSIS: AOM (acute otitis media); Viral illness Normal [facility] ED Note-Physicianon 07-14-20 ED [...] and Complexity of Problems Differential Diagnosis: [] [facility] Data External documents reviewed: N/A My EKG [...] POC Influenza A&B Ag Rapid COVID Antigen ([facility]) Resp.syn.virus (Rsv) XR Chest Single View Disposition Plan Discharge Prescription List Prescriptions azithromycin 250 mg Tab, 250 mg= 1 tab(s), Oral, Daily Follow-up With When Contact Information Hazel Grady In 7 days 07/21/2023 EST [address] [place] [phone] [facility] (2) Additional Instructions: Patient Education Viral [...] 94 mg/dL (07/14/23 02:00:00) POC Device SN: [id number] (07/14/23 02:00:00) POC User ID: [id number] (07/14/23 02:00:00) POC Username: POC Username (07/14/23 [...] EC07/14/23: SINUS RHYTHM NORMAL ECG Signed By: Dmo Sarmiento DO 07/14/2023 01:56:22 Normal [facility] Comment on above: Result [...] Follow these instructions at home: ? Take zxxy-msw-ibguwie and prescription medicines only as told by [...] Reviewed: 11/03/2021 Elsevier Patient Education ? 2022 [place]. Infectious Disease Viral Illness, Adult Viruses are [...] cause illne (more content not included)... Normal [facility] ED Patient Summaryon 023 ED Patient Summary [place] [address] Patient Discharge Instructions Person Information Name: FRANCES DOE Age: 17 Years Arrival Date: 07/13/2023 23:32:13 Discharge Diagnosis: AOM (acute otitis media); Viral illness Primary Care Physician: Hazel Grady MD Provider Information Primary Provider: Dom Sarmiento DO [facility] Worker:None The exam and treatment you received in the Emergency Department were for an urgent problem and are not intended as complete care. It is important that you follow up with a doctor, nurse practitioner, or physician?s executive assistant to general counsel for ongoing care. If your symptoms become [...] Address: When: Hazel Grady [address] [place] [address] Business (2) In 7 days 07/21/2023 In the event that this physician does not participate in your insurance network, please consult with your insurance company to find a nearby participating provider. Patient Education Materials: Viral Illness, Adult; Otitis Media, Adult A MESSAGE TO ALL PATIENTS REGARDING OPIOIDS PRESCRIPTION OPIOIDS: WHAT YOU NEED TO KNOW Prescription opioids can be used to help relieve ilzliqeb-zo-gsrdyu pain and are often prescribed following a [...] with addiction, tell your health customer care assistant and ask for guidance or call [employer]?S National Helpline at [phone]-LEIQ. (more content not included)... Normal [facility] Influenza A&B Agon 3 Influenzae A Ag Negative Normal Negative [facility] Comment on above: Performed By: #### 2 [id number] #### [facility] [address] [place] [address] Influenzae B Ag Negative Normal Negative [facility] Comment on above: Result Comment: Test sensitivity and specificity vary for age group, specimen type, antigen types, and prevalence of disease. Test results must be evaluated in conjunction with other clinical data available to the physician. Individuals who received nasally administered Influenza A vaccine may have positive test results up to 3 days after vaccination. Performed By: #### 2 [id number] #### [facility] [address] [place] [address] Prescriptions/Work Noteson 1 09-14-2022 Prescriptions/Work Notes [id number] 0TIFF Normal [facility] Rapid COVID Antigen ([facility])on 07-14-2023 Rapid COV Int NEG Ctl Pass Normal [facility] Comment on above: Performed By: #### 2 [id number] #### [facility] [address] [place] [address] Rapid COV Int POS Ctl Pass Normal [facility] Comment on above: Performed By: #### 2 [id number] #### [facility] [address] [place] [address] SARS-CoV+SARS-CoV-2 (COVID-19) Ag IA.rapid Ql (Resp) Not detected Normal Not Detected [facility] Comment on above: Result Comment: The [employer] System for Rapid Detection of SARS-CoV-2 is [...] other viruses or pathogens; and, in the [facility], this test is only authorized for the duration of the declaration that circumstances exist justifying the authorization of emergency use of in vitro diagnostics for detection and/or diagnosis of the virus that causes COVID-19 under Section 564(b)(1) of the Act, 21 U.S.C. ? 360bbb-3(b)(1), unless the authorization is terminated or revoked sooner. Performed By: #### 2 [id number] #### [facility] [address] [place] [address] Resp.syn.virus (Rsv)on 07-14 RSV Ag IA.rapid Ql (Nph) Negative Normal Negative [facility] Comment on above: Performed By: #### 2 [id number] #### [facility] [address] [place] [address] XR Chest Single Viewon 07-14 XR Chest [...] mGy = na DAP = na Normal [facility] Formson 12-24-2022 Forms [id number] [id number] Normal [facility] Vital Signs Date Time Vital Sign Value Performing Clinician Facility 02-01-2025 09:05-0400 Body weight 146.69 kg Maryanne FOWLER Work Phone: [facility] 02-01-2025 09:05-0400 Diastolic blood pressure 64 mm[Hg] Maryanne Covarrubias PA Work Phone: [facility] 02-01-2025 09:05-0400 Systolic blood pressure 110 mm[Hg] Maryanne Covarrubias PA Work Phone: [facility] 01-25-2025 09:18-0400 Body weight 143.79 kg Yogesh Ally DO Work Phone: [facility] 01-25-2025 09:18-0400 Diastolic blood pressure 80 mm[Hg] Yogesh Ally DO Work Phone: [facility] 01-25-2025 09:18-0400 Systolic blood pressure 128 mm[Hg] Yogesh Ally DO Work Phone: [facility] 01-11-2025 13:41-0400 Body weight 143.34 kg Maryanne FOWLER Work Phone: [facility] 01-11-2025 13:41-0400 Diastolic blood pressure 76 mm[Hg] Maryanne Covarrubias PA Work Phone: [facility] 01-11-2025 13:41-0400 Systolic blood pressure 122 mm[Hg] Maryanne Covarrubias PA Work Phone: [facility] 12-28-2024 10:20-0400 Body weight 139.82 kg Yogesh Ally DO Work Phone: [facility] 12-28-2024 10:20-0400 Diastolic blood pressure 82 mm[Hg] Yogesh Ally DO Work Phone: [facility] 12-28-2024 10:20-0400 Systolic blood pressure 126 mm[Hg] Yogesh Ally DO Work Phone: [facility] 12-06-2024 13:53-0400 Body weight 139.71 kg Lynette Gunter [employer] Work Phone: [facility] 12-06-2024 13:53-0400 Diastolic blood pressure 70 mm[Hg] Lynette Gunter NP Work Phone: [facility] 12-06-2024 13:53-0400 Systolic blood pressure 114 mm[Hg] Lynette Lyric [employer] Work Phone: [facility] 11-15-2024 10:36-0400 Body weight 139.16 kg Yogesh Ally DO Work Phone: [facility] 11-15-2024 10:36-0400 Diastolic blood pressure 78 mm[Hg] Yogesh Ally DO Work Phone: [facility] 11-15-2024 10:36-0400 Systolic blood pressure 130 mm[Hg] Yogesh Ally DO Work Phone: [facility] 10-18-2024 14:37-0400 Body weight 136.99 kg Maryanne Covarrubias PA Work Phone: [facility] 10-18-2024 14:37-0400 Diastolic blood pressure 78 mm[Hg] Maryanne Covarrubias PA Work Phone: [facility] 10-18-2024 14:37-0400 Systolic blood pressure 130 mm[Hg] Maryanne Marci PA Work Phone: [facility] 09-21-2024 16:43-0500 Body weight 136.9 kg Maryanne Marci PA Work Phone: [facility] 09-21-2024 16:43-0500 Diastolic blood pressure 76 mm[Hg] Maryanne Marci PA Work Phone: [facility] 09-21-2024 16:43-0500 Systolic blood pressure 118 mm[Hg] Maryanne Marci PA Work Phone: [facility] 08-17-2024 11:52-0500 Body weight 138.8 kg Yogesh Ally DO Work Phone: [facility] 08-17-2024 11:52-0500 Diastolic blood pressure 78 mm[Hg] Yogesh Ally DO Work Phone: [facility] 08-17-2024 11:52-0500 Systolic blood pressure 122 mm[Hg] Yogesh Ally DO Work Phone: [facility] 07-18-2024 11:15-0500 Body weight 139.71 kg [facility] 07-18-2024 11:15-0500 Diastolic blood pressure 74 mm[Hg] [facility] Nurse [facility] 07-18-2024 11:15-0500 Systolic blood pressure 118 mm[Hg] [facility] Nurse [facility] 09-17-2023 09:35-0500 Body height 175.26 cm Tiesha Flood Other [facility] Other 09-17-2023 09:35-0500 Body mass index (BMI) [Ratio] 40.16 kg/m2 Tiesha Flood Other [facility] Other 09-17-2023 09:35-0500 Body temperature 99.2 [degF] Tiesha Flood Other [facility] Other 09-17-2023 09:35-0500 Body weight 123.38 kg Tiesha Flood Other [facility] Other 09-17-2023 09:35-0500 Respiratory rate 18 /min Tiesha Flood Other [facility] Other 09-17-2023 09:35-0500 SaO2% (BldA) [Mass fraction] 97 % Tiesha Flood Other [facility] Other 09-02-2023 09:30-0500 Body height 175.26 cm Sheree Cheung Other [facility] Other 09-02-2023 09:30-0500 Body mass index (BMI) [Ratio] 40.21 kg/m2 Sheree Cheung Other [facility] Other 09-02-2023 09:30-0500 Body weight 123.52 kg Sheree Jonatan Other [facility] Other 09-02-2023 09:30-0500 Diastolic blood pressure 78 mm[Hg] Sheree Jonatan Other [facility] Other 09-02-2023 09:30-0500 Respiratory rate 18 /min Sheree Cheung Other [facility] Other 09-02-2023 09:30-0500 SaO2% (BldA) [Mass fraction] 97 % Sheree Jonatan Other [facility] Other 09-02-2023 09:30-0500 Systolic blood pressure 120 mm[Hg] Sheree Cheung Other [facility] Other 07-27-2023 09:30-0500 Body height 175.26 cm Sheree Jonatan Other [facility] Other 07-27-2023 09:30-0500 Body mass index (BMI) [Ratio] 40.02 kg/m2 Sheree Jonatan Other [facility] Other 07-27-2023 09:30-0500 Body weight 122.93 kg Sheree Cheung Other [facility] Other 07-27-2023 09:30-0500 Diastolic blood pressure 76 mm[Hg] Sheree Cheung Other [facility] Other 07-27-2023 09:30-0500 Respiratory rate 16 /min Sheree Cheung Other [facility] Other 07-27-2023 09:30-0500 SaO2% (BldA) [Mass fraction] 98 % Sheree Cheung Other [facility] Other 07-27-2023 09:30-0500 Systolic blood pressure 120 mm[Hg] Sheree Cheung Other [facility] Other 01-21-2022 15:35-0400 Body height 175.26 cm Almaz Huerta Other [facility] Other 01-21-2022 15:35-0400 Body mass index (BMI) [Ratio] 30.86 kg/m2 Almaz Deanna Other [facility] Other 01-21-2022 15:35-0400 Body temperature 97.3 [degF] Almaz Benavidezmond Other [facility] Other 01-21-2022 15:35-0400 Body weight 94.8 kg Almaz Deanna Other [facility] Other 01-21-2022 15:35-0400 Diastolic blood pressure 73 mm[Hg] Almaz Deanna Other [facility] Other 01-21-2022 15:35-0400 Respiratory rate 16 /min Almaz Deanna Other [facility] Other 01-21-2022 15:35-0400 SaO2% (BldA) [Mass fraction] 97 % Almaz Deanna Other [facility] Other 01-21-2022 15:35-0400 Systolic blood pressure 133 mm[Hg] Almaz Deanna Other [facility] Other Encounters Encounter Date Encounter Type Care Provider Facility Start: 02-01-2025 End: 02-01-2025 Bamboo flowsheet Maryanne FOWLER Work Phone: [facility] Start: 02-01-2025 End: 02-01-2025 Bamboo flowsheet Maryanne FOWLER Work Phone: [facility] Start: 02-01-2025 End: 02-01-2025 Clinisync Result Encounter Yogesh Ally DO Work Phone: [facility] External Department Unsolicited Start: 02-01-2025 End: 02-01-2025 flow sheet Maryanne FOWLER Work Phone: [facility] Comment on above: 35 weeks gestation o f ([facility]); Third trimester ([facility]); Pruritus; Oligohydramnios in third trimester, fetus 1 of multiple gestation ([facility]); SGA (small for gestational age) ([facility]); headache in third trimester ([facility]) Start: 02-01-2025 End: 02-01-2025 ambulatory MARYANNE COVARRUBIAS Not Available Start: 01-31-2025 End: 01-31-2025 Clinisync Result Encounter Yogesh Alyl DO Work Phone: [facility] External Department Unsolicited [...] flow sheet Yogesh Ally DO Work Phone: [facility] Comment on above: Third trimester preg merly ([facility]); 34 weeks gestation of ([facility]) Start: 01-24-2025 End: 01-24-2025 Clinisync Result Encounter Yogesh Ally DO Work Phone: [facility] Unsolicited Start: 01-24-2025 End: 01-24-2025 Clinisync Result Encounter Yogesh Ally DO Work Phone: [facility] Department Unsolicited Start: 01-18-2025 End: 01-18-2025 ambulatory YOGESH R ALLY [facility] Start: 01-17-2025 End: 01-17-2025 Clinisync Result Encounter Yogesh Ally DO Work Phone: [facility] External Department Unsolicited Start: 01-17-2025 End: [...] visit 15 minutes Maryanne FOWLER Work Phone: [facility] Comment on above: Third [...] 12-06-2024 End: 12-06-2024 Bamboo flowsheet Lynette Lyric SAIL FINISHER [employer] Work Phone: [facility] Start: 12-06-2024 End: 12-06-2024 Bamboo flowsheet Lynette Lyric [employer] FINISH[employer] Work Phone: [facility] Start: 12-06-2024 End: 12-06-2024 flow sheet Lynette Lyric [employer] FIN[employer] Work Phone: [facility] Comment on [...] 09-21-2024 Bamboo flowsheet Maryanne FOWLER Work Phone: [facility] Start: 09-21-2024 End: 09-23-2024 Bamboo flowsheet Maryanne FOWLER Work Phone: [facility] Start: 09-21-2024 End: 09-23-2024 External Result Encounter Maryanne FOWLER Work Phone: [facility] External Department Unsolicited Start: 08-17-2024 End: 08-17-2024 Bamboo flowsheet Yogesh Ally DO Work Phone: [facility] Start: 08-17-2024 End: 08-17-2024 Bamboo flowsheet Yogesh Ally DO Work Phone: [facility] Start: 08-17-2024 End: 08-17-2024 flow sheet Yogesh Ally DO Work Phone: [facility] Comment on above: First [...] Start: 08-05-2024 End: 08-05-2024 ambulatory Sheree Cheung Facility:[facility] Start: 07-18-2024 End: 07-18-2024 ambulatory [facility] Ally Nurse [facility] Comment on above: GA: 7w3d Start: 06-26-2024 End: 06-26-2024 Clinisync Result Encounter Maryanne Camposlashaun FOWLER Work Phone: [facility] External Department Unsolicited Start: 06-26-2024 End: 06-26-2024 Clinisync Result Encounter Maryanne Covarrubias JANETH Work Phone: [facility] External Department Unsolicited Start: 09-17-2023 End: 09-17-2023 ambulatory Tiesha Flood Other [facility] Other Start: 09-17-2023 Office outpatient vi sit 15 minutes Tiesha Flood [facility] Start: 09-02-2023 End: 09-02-2023 ambulatory Sheree Cheung Other [facility] Other Start: 09-02-2023 Office outpatient vi sit 25 minutes Sheree Cheung [facility] Start: 07-27-2023 End: 07-27-2023 ambulatory Sheree Cheung Other [facility] Other Start: 07-27-2023 Encounter for genera l adult medical examination without abnormal findings Sheree Cheung [facility] Start: 07-27-2023 Initial preventive medicine new pt age 18-39yrs Sheree Cheung [facility] Start: 07-14-2023 End: 07-14-2023 Emergency department patient visit Dom Sarmiento Facility:[facility] Start: 12-24-2022 ambulatory Dom Sarmiento Facility: [facility] [place] Start: 04-06-2022 End: 04-06-2022 ambulatory HAZEL GRADY Facility: Start: 01-21-2022 (URG) Urgent Care Visit Almaz romero [facility] Start: 01-21-2022 End: 01-21-2022 ambulatory Almaz Deanna Other [facility] Other Procedures Date Procedure Procedure Detail Performing [...] Work Phone: Start: 12-15-2024 [facility] UA (CLEAN/CATCH) 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 Yogesh Ally DO Work [...] EDT Office Visit [facility] [address] [place] [phone] Maryanne Covarrubias PA [address] [place] [address] [facility] Start: 02-01-2025 End: 02-01-2026 CULTURE, GROUP B STREP WITH SUSCEPTIBLITY CULTURE, GROUP B STREP WITH SUSCEPTIBLITY Lab Routine Third trimester ([facility]) Expected: 02/01/2025, Expires: 02/01/2026 [facility] Work Phone: Comment on above: Expected: 02/01/2025 , Expires: 02/01/2026 Start: 02-01-2025 End: 02-01-2025 Patient encounter procedure [facility] Comment on above: Arrived Start: 01-25-2025 End: 01-25-2025 Patient encounter procedure 01/25/2025 8:40 AM EDT Routine [facility] [address] [place] [phone] Yogesh Canales DO [address] [place] [address] [facility] Start: 01-11-2025 End: 01-11-2026 [...] AM EDT Routine [facility] [address] [place] [place] [address] Yogesh Canales DO [address] [place] [address] [facility] Start: 12-28-2024 End: 12-28-2024 Professional / ancillary services management 12/28/2024 9:00 AM EDT Ancillary Procedure [facility] [address] [place] [phone] [facility] Start: 12-06-2024 End: 04-07-2025 [...] mellitus screening Expected: 11/15/2024 (Approximate), Expires: 11/15/2025 [facility] Comment on above: Expected: 11/15/2024 (Approximate), Expires: 11/15/2025 Start: 11-15-2024 End: 11-15-2024 Patient encounter procedure 11/15/2024 1:10 PM EDT Routine [facility] [address] [place] [phone] Yogesh Canales DO [address] [place], [place] [id number] [facility] Start: 10-18-2024 End: 10-18-2024 Patient encounter procedure 10/18/2024 2:30 PM EDT Routine [facility] [address] [place] [phone] Maryanne Covarrubias PA [address] [place] [address] [facility] Start: 10-18-2024 End: 10-18-2024 Professional / ancillary services management 10/18/2024 1:00 PM EDT Ancillary Procedure [facility] [address] [place] [phone] [facility] Start: 09-21-2024 End: 09-21-2024 Patient encounter procedure 09/21/2024 3:20 PM EST Routine [facility] [address] [place] [phone] Maryanne Covarrubias PA [address] [place] [address] Arrived [facility] Comment on above: Arrived Start: 09-21-2024 End: 11-19-2024 Alpha fetoprotein, maternal Alpha fetoprotein, maternal Lab Routine Screening, , for anatomic survey Expected: 09/21/2024 (Approximate), Expires: 11/19/2024 [facility] Comment on above: Expected: 09/21/2024 (Approximate), Expires: 11/19/2024 Start: 09-21-2024 End: 09-21-2025 Measurement of glucose 1 hour after glucose challenge for glucose tolerance test Glucose tolerance, 1 hour Lab Routine Diabetes mellitus screening Expected: 09/21/2024 (Approximate), Expires: 09/21/2025 [facility] Comment on above: Expected: 09/21/2024 (Approximate), Expires: 09/21/2025 Start: 09-21-2024 End: 09-21-2025 US for US OB 14+ weeks anatomy scan Imaging Routine Screening, , for anatomic survey Expected: 09/21/2024, Expires: 09/21/2025 [facility] Comment on above: Expected: 09/21/2024 , Expires: 09/21/2025 Start: 09-21-2024 End: 09-21-2024 Patient encounter procedure 09/21/2024 9:30 AM EST Routine [facility] [address] [place] [address] Maryanne Covarrubias PA [address] [place] [address] [facility] Start: 08-17-2024 End: 08-17-2024 [facility] on above: Arrived Start: 07-18-2024 End: 07-18-2025 ABO/Rh ABO/Rh Lab Routine Missed menses , unspecified gestational age Expected: 07/18/2024 (Approximate), Expires: 07/18/2025 [facility] Comment on above: Expected: 07/18/2024 (Approximate), Expires: 07/18/2025 Start: 07-18-2024 End: 07-18-2025 Blood type and Indirect antibody screen panel - Blood Type and screen Lab Routine Missed menses , unspecified gestational age Expected: 07/18/2024 (Approximate), Expires: 07/18/2025 [facility] Work Phone: Comment on above: Expected: 07/18/2024 (Approximate), Expires: 07/18/2025 Start: 07-18-2024 End: 07-18-2025 Drugs of abuse panel - Urine by Screen method Rapid drug screen, urine Lab Routine , unspecified gestational age Encounter for supervision of normal first in first trimester Expected: 07/18/2024 (Approximate), Expires: 07/18/2025 [facility] Comment on above: Expected: 07/18/2024 (Approximate), Expires: 07/18/2025 Start: 07-18-2024 End: 07-18-2025 US Pelvis transvaginal US OB transvaginal Imaging Routine Missed menses Expected: 07/18/2024 (Approximate), Expires: 07/18/2025 [facility] Comment on above: Expected: 07/18/2024 (Approximate), Expires: 07/18/2025 Start: 07-18-2024 End: 07-18-2024 ambulatory 07/18/2024 10:30 AM EST Initial [facility] [address] [place] [address] [facility] Start: 07-18-2024 End: 07-18-2024 Professional / ancillary services management 07/18/2024 10:00 AM EST Ancillary Procedure [facility] [address] [place] [address] [facility] Bacteria identified in Urine by Culture Urine culture Microbiology Routine Missed menses Ordered: 07/18/2024 [facility] Comment on above: Ordered: 07/18/2024 CBC W Auto Different ial panel - Blood CBC and differential Lab Routine Missed menses , unspecified gestational age Ordered: 07/18/2024 [facility] Comment on above: Ordered: 07/18/2024 CHLAMYDIA TRACHOMATI S (GENITO/STI) CHLAMYDIA TRACHOMATIS (GENITO/STI) Lab Routine STD exposure Vaginal discharge Ordered: 09/21/2024 [facility] Comment on above: Ordered: 09/21/2024 Hemoglobin A1c/Hemoglobin.total in Blood Hemoglobin A1c Lab Routine Missed menses , unspecified gestational age Ordered: 07/18/2024 [facility] Comment on above: Ordered: 07/18/2024 Hepatitis B virus surface Ag [Presence] in Serum or Plasma by Immunoassay Hepatitis B surface antigen Lab Routine Missed menses , unspecified gestational age Ordered: 07/18/2024 [facility] Comment on above: Ordered: 07/18/2024 Hepatitis C virus Ab [Presence] in Serum or Plasma by Immunoassay Hepatitis C antibody Lab Routine Missed menses , unspecified gestational age Ordered: 07/18/2024 [facility] Comment on above: Ordered: 07/18/2024 HIV-1/HIV-2 antigen/antibody combination immunoassay HIV-1 and HIV-2 antibodies Lab Routine Missed menses , unspecified gestational age Ordered: 07/18/2024 [facility] Comment on above: Ordered: 07/18/2024 Neisseria gonorrhoea e DNA [Presence] in Unspecified specimen by ISAURO with probe detection Neisseria gonorrhea DNA probe, direct Lab Routine STD exposure Vaginal discharge Ordered: 09/21/2024 [facility] Comment on above: Ordered: 09/21/2024 Reagin Ab [Presence] in Serum by RPR RPR Lab Routine Missed menses , unspecified gestational age Ordered: 07/18/2024 [facility] Comment on above: Ordered: 07/18/2024 Rubella antibody, IgG Rubella an tibody, IgG Lab Routine Missed menses , unspecified gestational age Ordered: 07/18/2024 [facility] Comment on above: Ordered: 07/18/2024 SURESWAB(R) ADVANCED VAGINITIS PLUS, TMA SURESWAB(R) ADVANCED VAGINITIS PLUS, TMA Pathology and Cytology Routine STD exposure Vaginal discharge Ordered: 09/21/2024 [facility] Work Phone: Comment on above: Ordered: 09/21/2024 Immunizations Immunization Date Immunization Notes Care Provider Chase sequeira 03-17-2021 Human Papillomavirus 9-valent vaccine Almaz Deanna Other [facility] Other 02-10-2021 Do not use COVID-19 Pfizer 2 dose Almaz Deanna Other [facility] Other 08-04-2016 Human Papillomavirus 9-valent vaccine Almaz Deanna Other [facility] Other 05-22-2016 Human Papillomavirus 9-valent vaccine Almaz Deanna Other [facility] Other 07-29-2015 hepatitis A vaccine, pediatric/adolescent dosage, 2 dose schedule Almaz Deanna Other [facility] Other 04-02-2007 hepatitis A vaccine, pediatric/adolescent dosage, 2 dose schedule Almaz Deanna Other [facility] Other 04-14-2005 diphtheria, tetanus toxoids and acellular pertussis vaccine, 5 pertussis antigens Almaz Deanna Other [facility] Other 10-09-2004 measles, mumps and rubella virus vaccine Almaz Deanna Other [facility] Other 04-21-2004 DTaP-hepatitis B and poliovirus vaccine Almaz Deanna Other [facility] Other 04-21-2004 haemophilus influenz ae type b vaccine, PRP-T conjugate Almaz Deanna Other [facility] Other 02-19-2004 DTaP-hepatitis B and poliovirus vaccine Almaz Deanna Other [facility] Other 02-19-2004 haemophilus influenz ae type b vaccine, PRP-T conjugate Almaz Deanna Other [facility] Other 2003 DTaP-hepatitis B and poliovirus vaccine Almaz Deanna Other [facility] Other 2003 haemophilus influenz ae type b vaccine, PRP-T conjugate Almaz Deanna Other [facility] Other 2003 hepatitis B vaccine, pediatric or pediatric/adolescent dosage Almaz Deanna Other [facility] Other Payers Date Payer Category Payer Self-pay 2021 Private Health Insurance 2003 Unknown [id number] 2.16.8 [id number] 2003 Unknown [id number] 2.16. [id number] 2003 Unknown [id number] 2.16.8 [id number] 2003 Unknown [id number] 2.16.8 40.1.908750.3.579.2.1259 2003 Unknown [id number] 2.16.8 40.1.504783.3.579.2.1259 2003 Unknown [id number] 2.16.84 0.1.944287.3.579.2.1259 2003 Unknown [id number] 2.16.84 0.1.373237.3.579.2.1259 2003 Unknown [id number] 2.16.84 0.1.242114.3.579.2.1259 2003 Unknown [id number] 2.16.84 0.1.334463.3.579.2.1259 2003 Unknown [id number] 2.16.84 0.1.642757.3.579.2.1259 2003 Unknown [id number] 2.16.84 0.1.605626.3.579.2.1259 2003 Unknown [id number] 2.16.84 0.1.816471.3.579.2.9 2003 Unknown [id number] 2.16.84 0.1.672020.3.579.2.1259 2003 Unknown [id number] 2.16.84 0.1.736113.3.579.2.1259 2003 Unknown [id number] 2.16.84 0.1.235253.3.579.2.1259 1959 Unknown [id number] 1959 Unknown [id number] 1959 Unknown [id number] 2.16.84 0.1.971554.3.579.2.593 Unknown [id number] 2.16.8 40.1.094177.3.579.2.531 Social History Date Type Detail Facility Unknown if ever smoked [facility] Other Sex Assigned At [facility] Other Tobacco smoking status [facility] Tobacco smoking consumption unknown [facility] Start: 2003 Sex assigned at Not on file [facility] Start: 06-10-2024 [facility] Clinical Notes 01-21-2022 to 02-01-2025 Madeline Toribio, [facility] - 02/01/2025 8:50 AM NINAbettie Covarrubias, JANETH - 01/25/2025 8:40 AM JANETH Blanca - 01/11/2025 1:30 PM EDTSkenna Rodríguez, [facility] - 12/28/2024 9:50 AM Keeley CovarrubiasJANETH - [...] nursing note reviewed. Exam conducted with a psych specialist present. Vitals: There is no height [...] of: JANETH Ji documented in this encounter [facility] 01-25-2025 History of Presen t illness [...] ASSESSMENT & PLAN ICD-10-CM 1. Third trimester ([facility]) Z34.93 POCT urinalysis dipstick manually resulted 2. 34 weeks gestation of ([facility]) Z3A.34 Return OB: Patient presents today for [...] Yogesh Canales DO documented in this encounter [facility] 01-11-2025 History of Presen t illness [...] of: JANETH Ji documented in this encounter [facility] 12-28-2024 History of Presen t illness [...] nursing note reviewed. Exam conducted with a psych specialist present. Vitals: There is no height [...] Yogesh Canales DO documented in this encounter [facility] 12-06-2024 History of Presen t illness [...] nursing note reviewed. Exam conducted with a psych specialist present. Vitals: There is no height [...] Lynette Gunter NP documented in this encounter [facility] 11-15-2024 History of Presen t illness [...] nursing note reviewed. Exam conducted with a psych specialist present. Vitals: There is no height [...] Yogesh Canales DO documented in this encounter [facility] 10-18-2024 History of Presen t illness [...] of: JANETH Ji documented in this encounter [facility] 09-21-2024 History of Presen t illness [...] obtained without difficulty and patient was given [facility] order to have obtained. Orders [...] of: JANETH Ji documented in this encounter [facility] 08-17-2024 History of Presen t illness [...] nursing note reviewed. Exam conducted with a psych specialist present. Vitals: There is no height [...] or undercooked meat, and stay away from [facility]. Patient has been consulted regarding any [...] Yogesh Canales DO documented in this encounter [facility] 07-18-2024 History of Presen t illness [...] or undercooked meat, and stay away from [facility]. Patient has also been advised to [...] Jazmyne Oliveira MA documented in this encounter [facility] 09-17-2023 Evaluation note Encounter Date Diagnosis [...] understanding and is agreeable to treatment plan. [facility] Other 01-25-2024 Evaluation note* Encounter Date Diagnosis [...] of any breach, fraud, or malicious third libertarian actors and no personal patient information was compromised. [facility] Other 12-19-2023 Evaluation note* Encounter Date Diagnosis [...] (ICD-10 - F32.1) See above treatment plan. [facility] Other 06-15-2022 Evaluation note* Encounter Date Diagnosis Assessment Notes Treatment Notes Treatment Clinical Notes Jan, Pre-employment examination (ICD-10 - Z02.1) [facility] Other Evaluation note* Diagnosis Missed menses , [...] ([facility]) SGA (small for gestational age) ([facility]) Lbasz-rfk-troyf without mention of malnutrition, unspecified (weight) headache in third trimester ([facility]) documented [facility] encounter [facility] N[facility]ative - Reported* Type Description Date Medical History vertigo [facility] Other Reason for referral (narrative)* Reason Refer to Sylwia berg or counseling for anxiety and depression Diagnosis 1 MATTHIAS (generalized anx iety disorder) (F41.1) Referral Organization [facility] Referring Provider First Name Sheree Referring Provider Last Name Sarthakkevin Referring Provider Specialty Nurse Bree grullon Referred Provider Specialty Psychiatry Referral Priority Routine [facility] Other Summary Purpose Family History No Family [...] and content) DATE CREATED AUTHOR 04/10/[address] [facility] DATE CREATED AUTHOR AUTHOR'S ORGANIZ ATION 08/13/2023 [facility] DATE CREATED AUTHOR AUTHOR'S ORGANIZ ATION 08/09/2024 [facility] DATE CREATED AUTHOR AUTHOR'S ORGANIZ ATION 01/20/2025 [facility] DATE CREATED AUTHOR AUTHOR'S ORGANIZ ATION 02/02/2025 [facility] dical Specialists EPIC Care Teams (unrecognized sec tion and content) Grinder Operator Automatic Relationship Specialty Start Date End Date Hazel Grady MD [address] [place] [address] PCP - General Family Medicine 07/18/24 Grinder Operator Automatic Relationship Specialty Start Date End Date Hazel Grady MD [address] [place] [address] PCP - General Family Medicine 07/18/24 Grinder Operator Automatic Relationship Specialty Start Date End Date Hazel Grady MD [address] [place] [address] PCP - General Family Medicine 07/18/24 Grinder Operator Automatic Relationship Specialty Start Date End Date Hazel Grady MD [address] [place] [address] PCP - General Family Medicine 07/18/24 Grinder Operator Automatic Relationship Specialty Start Date End Date Hazel Grady MD [address] [place] [address] PCP - General Family Medicine 07/18/24 Grinder Operator Automatic Relationship Specialty Start Date End Date Hazel Grady MD [address] [place] [address] PCP - General Family Medicine 07/18/24 Grinder Operator Automatic Relationship Specialty Start Date End Date Hazel Grady MD [address] [place] [address] PCP - General Family Medicine 07/18/24 Grinder Operator Automatic Relationship Specialty Start Date End Date Hazel Grady MD [address] [place] [address] PCP - General Family Medicine 07/18/24 Grinder Operator Automatic Relationship Specialty Start Date End Date Hazel Grady MD [address] [place] [address] PCP - General Family Medicine 07/18/24 Grinder Operator Automatic Relationship Specialty Start Date End Date Hazel Grady MD [address] [place] [address] PCP - General Family Medicine 07/18/24 Grinder Operator Automatic Relationship Specialty Start Date End Date Hazel Grady MD [address] [place] [address] PCP - General Family [facility] 07/18/24 Grinder Operator Automatic Relationship Specialty Start Date End Date Hazel Grady MD [address] [facility] [place] [address] PCP - General Family Medicine 07/18/24 FOR [...] BE BASED ON THE PRIMARY CLINICAL RECORDS. [facility]. provides no warranty or guarantee of the accuracy or completeness of information in this document.
[2025-02-04 20:56] VITALS: BP 157/76; PULSE 93
[2025-02-04 20:58] VITALS: TEMP 36.5
[2025-02-04 21:36] VITALS: BP 139/90; PULSE 89
[2025-02-04 21:36] LABS: Hematocrit 29.4 % (36.0-48.0); Hemoglobin 9.8 g/dL (12.0-16.0); Mean Corpuscular HGB Conc 33.3 g/dL (29.9-35.2); Mean Corpuscular Hemoglobin 27.1 pg (26.7-34.0); Mean Corpuscular Volume 81.4 fL (81.0-99.0); Platelet Count 255 10^3/uL (150-450); Red Blood Count 3.61 10^6/uL (4.20-5.40); White Blood Count 12.4 10^3/uL (4.0-11.0)
[2025-02-04 21:47] LABS: Cannabinoid Screen Urine NEGATIVE (NEGATIVE); Methamphetamines Screen Urine NEGATIVE (NEGATIVE); Tricyclic Antidepressant Urine NEGATIVE (NEGATIVE)
[2025-02-05] VITALS (91 sets, daily range): BP systolic 112–180; BP diastolic 55–111; PULSE 77–122; TEMP 35.3–37.2; O2SAT 97–98
[2025-02-05] MEDS: 0.9 % SODIUM CHLORIDE 1,000 ML 125 ML IV ×3 (02:30→21:36)
[2025-02-05] MEDS: OXYTOCIN/0.9 % SODIUM CHLORIDE 10 UNITS/500 ML PLAST..BAG 6 UNIT IV (02:30)
[2025-02-05] MEDS: CEFAZOLIN SODIUM/DEXTROSE,ISO 2 GM/50 ML PIGGYBACK IV (02:31)
[2025-02-05] MEDS: ACETAMINOPHEN 325 MG TABLET 650 MG PO ×2 (03:07→16:09)
[2025-02-05] MEDS: 0.9 % SODIUM CHLORIDE 1,000 ML 1000 ML IV (10:23)
[2025-02-05] MEDS: CEFAZOLIN SODIUM/DEXTROSE,ISO 1 GM/50 ML PREMIX IV ×2 (10:25→18:10)
[2025-02-05] MEDS: ROPIVACAINE HCL/PF 400 MG/200 ML PREMIX 10 MG EPIDURAL (11:28)
[2025-02-05] MEDS: OXYTOCIN/0.9 % SODIUM CHLORIDE 10 UNITS/500 ML PLAST..BAG 60 UNIT IV ×2 (13:19→21:33)
[2025-02-05] MEDS: SERTRALINE HCL 50 MG TABLET PO (21:34)
[2025-02-05] MEDS: CITRIC ACID/SODIUM CITRATE 30 ML SOLUTION ORACIT SHOHL'S SOLN PO (22:21)
[2025-02-05] MEDS: FAMOTIDINE/PF 20 MG/2 ML VIAL IV (22:21)
--- NOTE | 2025-02-05 23:29 | P.ON_ITS ---
Brief Operative Note Date of procedure: 02/05/25 Pre-op diagnosis general: iup at term gestation, mild preeclampsia, oligohydra mnios Post-op diagnosis: same as pre-op Procedure: NAME OF PROCEDURE: [ section ] PROCEDURE: Patient was taken back to the Operating Room where she was given a spinal anesthesia with Duramorph without difficulty. She was prepped and draped in the normal sterile fashion. A Pfannenstiel skin incision was then made 2 cm above the symphysis pubis and carried down to underlying rectus fascia using a Bovie. The fascia was incised in the midline and extended laterally using Wiley scissors. Two Elsy clamps were placed on the superior aspect of the fascia and dissected off the underlying rectus muscles. The same was performed on the inferior aspect as well. The muscles were then in the midline. Peritoneum was identified and entered bluntly. The peritoneum was then extended superiorly and inferiorly with good visualization of the bladder. The bladder blade was inserted. A low transverse incision was made on the patient's uterus and extended laterally digitally. The was then delivered atraumatically after the bladder blade was removed in the cephalic position. The cord was cl amped and cut. Cord blood was obtained. The infant was handed off to awaiting team. The patient's placenta was spontaneously delivered. The uterus was then exteriorized. The uterus was cleared of all clots and debris. The bladder blade was reinserted. The patient's uterine incision was closed using #0 Vicryl in a running lock fashion. Excellent hemostasis was assured. The uterus was then returned to the patient's abdomen. The patient's abdomen was copiously irrigated using warm saline. Peritoneal gutters were cleared of all clots and debris. Again excellent hemostasis was assured. The patient's peritoneum was closed using 3-0 Vicryl in a running fashion. The patient's fascia was closed using #0 Vicryl in a running fashion. The patient's skin was closed using 4-0 Vicryl subcuticularly. The patient tolerated the procedure well. Sponge, lap, and needle counts were correct x2. The patient was taken to the Recovery Room in stable condition. Anesthesia: epidural Surgeon: Cb Canales Electrician Supervisor Substation: Lay Desouza Estimated blood loss (mL): 575 Pathology: other (placenta) Condition: stable Disposition: PACU Urinary Catheter Management Urinary Catheter Management Urethral: Cath placed during this visit: yes Urethral indwelling: No Insertion date: 02/05/25 Insertion time: 12:50
--- NOTE | 2025-02-05 23:30 | PM.OBPRCCS ---
Procedure Pre-op/Post-op diagnoses: Pre-Op/Post-Op Diagnoses Operation Date: 02/05/25 10:30 <No data on this case meets the specified criteria> Procedure: Procedures Operation Date: 02/05/25 10:30 Actual Procedure Side Surgeon p Not Applicable Cb Canales DO Manganese Breaker: Lay Desouza Estimated blood loss (mL): 575 Disposition: PACU Anesthesia type: Epidural
[2025-02-05] MEDS: OXYTOCIN/0.9 % SODIUM CHLORIDE 20 UNITS/1,000 ML PLAST..BAG 125 UNIT IV (23:50)
[2025-02-06] VITALS (39 sets, daily range): BP systolic 102–157; BP diastolic 50–85; PULSE 83–94; TEMP 36.6–38.1; O2SAT 96–98
[2025-02-06] MEDS: CEFAZOLIN SODIUM/DEXTROSE,ISO 2 GM/50 ML PIGGYBACK IV (03:20)
[2025-02-06] MEDS: KETOROLAC TROMETHAMINE 30 MG/ML VIAL IVP ×3 (06:12→19:51)
[2025-02-06 06:36] LABS: Hematocrit 28.1 % (36.0-48.0); Hemoglobin 9.1 g/dL (12.0-16.0); Immature Granulocytes Abs Auto 0.05 10^3/uL (0.00-0.03); Immature Granulocytes Pct Auto 0.4 % (0.0-0.5); Lymphocytes Absolute Auto 1.8 10^3/uL (1.2-3.8); Mean Corpuscular HGB Conc 32.4 g/dL (29.9-35.2); Mean Corpuscular Hemoglobin 27.2 pg (26.7-34.0); Mean Corpuscular Volume 84.1 fL (81.0-99.0); Platelet Count 224 10^3/uL (150-450); Red Blood Count 3.34 10^6/uL (4.20-5.40); White Blood Count 12.3 10^3/uL (4.0-11.0)
[2025-02-06] MEDS: DOCUSATE SODIUM 100 MG CAPSULE PO ×2 (08:21→22:33)
[2025-02-06] MEDS: OXYCODONE HCL/ACETAMINOPHEN 5MG/325MG 2 TAB PO (11:06)
--- NOTE | 2025-02-06 12:35 | P.OBPN_ITS ---
OB - PN: Subj Subjective Patient comments: no complaints [place] status: doing well [place] feeding status: exclusively bottle feeding Exam Constitutional Vital Signs, click to edit/add: Last Vital Signs Temp 98.8 F 02/06/25 02:16 Pulse 91 H 02/06/25 02:38 Resp 13 02/06/25 02:38 BP 138/80 02/06/25 08:24 Pulse Ox 98 02/06/25 08:26 O2 Del Method Room Air 02/06/25 01:28 Documenting provider has reviewed patient's vital signs: yes Common normals: no apparent distress General appearance: cooperative, comfortable, well kempt and well developed Orientation/consciousness: Yes awake, Yes oriented to person, Yes oriented to place and Yes oriented to time HENMT Common normals: normocephalic Eye Common normals: EOMs intact bilaterally General eye: normal appearance of both eyes Neck & C-Spine Common normals: full ROM and no lymphadenopathy Lymph Lymphatic: no lymphadenopathy noted Chest Common normals: inspection of chest normal Respiratory Common normals: normal respiratory effort Effort & inspection: able to speak in complete sentences Auscultation: clear to auscultation bilaterally Cardio Common normals: regular rate and regular rhythm Rate: regular rate Rhythm: regular rhythm GI Common normals: Normal to inspection, nondistended, normoactive bowel sounds present Inspection: normal to inspection Auscultation: normoactive bowel sounds Palpation: soft Common normals: no CVA tenderness Back & Pelvis Common normals: no CVA tenderness Extremity Common normals: normal to inspection Neuro Common normals: oriented x3 Sensorium/orientation: awake, alert, oriented to person, oriented to place and oriented to time Psych Common normals: mental status grossly normal, thought process normal, cooperative, affect normal, speech normal, activity/motor behavior normal, denies hallucinations, denies homicidal ideation and denies suicidal ideation Appearance: grossly normal Attitude: calm Activity/motor behavior: appropriate eye contact Results Labs Labs: Short CBC 02/06/25 Range/Units 06:11 WBC 12.3 H (4.0-11.0) 10^3/uL Hgb 9.1 L (12.0-16.0) g/dL Hct 28.1 L (36.0-48.0) % Plt Count 224 (150-450) 10^3/uL Urinary Catheter Management Urinary Catheter Management Urethral: Cath placed during this visit: yes Urethral indwelling: No Insertion date: 02/05/25 Insertion time: 12:50 OB - PN: A/P Plan - day: 1 Plan: routine postop care Time Spent with Patient Time: Total time spent is greater than 50% in coordination of care (as documented) at patient's floor/unit and/or counseling patient: Total time spent with greater than 50% in coordination of care (as documented) at patient's floor/unit and/or counseling patient: less than 15 minutes
[2025-02-06] MEDS: ENOXAPARIN SODIUM 40 MG/0.4 ML SYRINGE SUBQ (18:21)
[2025-02-06] MEDS: SERTRALINE HCL 50 MG TABLET PO (22:33)
[2025-02-07 00:59] VITALS: BP 132/63; PULSE 86
[2025-02-07 01:01] VITALS: BP 132/63; PULSE 86; TEMP 36.9
[2025-02-07] MEDS: KETOROLAC TROMETHAMINE 30 MG/ML VIAL IVP (02:31)
[2025-02-07] MEDS: OXYCODONE HCL/ACETAMINOPHEN 5MG/325MG 2 TAB PO ×2 (05:29→15:24)
--- NOTE | 2025-02-07 07:34 | PM.OBPN ---
OB - PN: Subj Subjective Patient comments: no complaints and pain well controlled [place] status: doing well Exam Constitutional Vital Signs, click to edit/add: Last Vital Signs Temp 98.5 F 02/07/25 01:01 Pulse 86 02/07/25 01:01 Resp 18 02/07/25 01:01 BP 132/63 02/07/25 01:01 Pulse Ox 97 02/06/25 12:24 O2 Del Method Room Air 02/07/25 01:01 Documenting provider has reviewed patient's vital signs: yes Common normals: no apparent distress Respiratory Common normals: normal respiratory effort and clear to auscultation bilaterally Cardio Common normals: regular rate and regular rhythm GI Common normals: Normal to inspection, nondistended, normoactive bowel sounds present Extremity Common normals: no clubbing, cyanosis or edema and no calf tenderness Urinary Catheter Management Urinary Catheter Management Urethral: Cath placed during this visit: yes, but has since been removed by the nurse Urethral indwelling: No Insertion date: 02/05/25 Insertion time: 12:50 Removal date: 02/06/25 Removal time: 12:50 OB - PN: A/P Plan - day: 2 Plan: routine postop care, discharge home and other (fu 1wk) Time Spent with Patient Time: Total time spent is greater than 50% in coordination of care (as documented) at patient's floor/unit and/or counseling patient: Total time spent with greater than 50% in coordination of care (as documented) at patient's floor/unit and/or counseling patient: less than 15 minutes
[2025-02-07] MEDS: IBUPROFEN 400 MG TABLET 800 MG PO (08:26)
[2025-02-07] MEDS: DOCUSATE SODIUM 100 MG CAPSULE PO (08:27)
[2025-02-07 08:30] VITALS: BP 141/67; PULSE 81
[2025-02-07 09:00] VITALS: TEMP 37.1
[2025-02-07] MEDS: SIMETHICONE 80 MG TAB.CHEW PO (15:24)
== END 2025-02-07 16:00 | disposition home or self-care (01) | DRG 788 ==
PROVIDERS: Obstetrics & Gynecology; Admitting Provider Family Medicine Addiction Medicine; PCP Family Medicine; Visit Provider Family Medicine Addiction Medicine
PROC: 10D00Z1 Extraction of Products of Conception, Low, Open Approach (ICD-10-PCS; CPT 59514; principal; 2025-02-05 10:30)
DX: O41.03X0 Oligohydramnios, third trimester, not applicable or unspecified (principal); O14.04 Mild to moderate pre-eclampsia, complicating childbirth; Z37.0 Single live birth; Z3A.36 36 weeks gestation of pregnancy; O99.214 Obesity complicating childbirth; E66.01 Morbid (severe) obesity due to excess calories
CPT/HCPCS: 36415; 80307; 85025; 85027; 86850; 86900; 86901; 94667; 94668; J0690; J1650; J1885; J2274; J2371; J2405; J2590; J2795; J3010; J3490

== ENCOUNTER 2025-02-12 07:57 | Outpatient (OUT) | payer OTHER, SELFPAY ==
--- OUTSIDE RECORDS SUMMARY | 2025-02-05 23:53 | XMS_ITS ---
Author Name Auto Generated Organization OHIP Care Team Providers Care Journeyman Welder Name Role Phone MAKENZIE COVARRUBIAS Attending Unavailable MARCI, MAKENZIE Attending Unavailable ALLY, YOGESH Attending Unavailable DONAVAN LONG Attending Unavailable ALLY, YOGESH Attending Unavailable ALLY, YOGESH Attending Unavailable MARCI, MAKENZIE Attending Unavailable ALLY, YOGESH Attending Unavailable MARCI, MAKENZIE Attending Unavailable Ally, Yogesh Admitting Unavailable Ally, Yogesh Attending Unavailable Sheree Cheung Primary Care Unavailable Ally, Yogesh Attending Unavailable Ally, Yogesh Admitting Unavailable ALLY, YOGESH R Referring Unavailable PROBLEMS DATE TYPE CONDITION / CODE ATTENDING STATUS PROSPER E 01/18/2025 Unknown Encounter for ot her specified screening / Z36.89(ICD-10) NA Active [facility] PROCEDURES No Procedure Records Found RESULTS US OB FOLLOW UP TRANSABDOMINAL APPROACH Observed: 12/28/2024 8:58 AM Status: F Source: [facility] EPIC Order Comment: US OB SCAN FO R GROWTH Estimated Date of Delivery: 03/03/25 Gestational Age as of 12/06/2024: 27w4d EXAM: US OB FOLLOW UP TRANSA BDOMINAL APPROACH HISTORY: Inconsistent size, PIH. COMPARISON: Ob [...] II, MD, PHD at 29-Dec-2024 12:17:39 PM [facility] US OB LIMITED 1+ FETUSES Observed: 11/15 9:57 AM Status: F Source: [facility] Order Comment: US OB INCOMPL ETE ANATOMY Estimated Date of Delivery: 03/03/25 Gestational Age as of 11/01/2024: 22w4d EXAM: US OB LIMITED 1+ FETUS ES HISTORY: Follow up anatomy. COMPARISON: OB ultrasound [...] II, MD, PHD at 17-Nov-2024 06:24:10 AM [facility] US OB 14+ WEEKS ANATOMY SCAN Observed: 0 09/21/2024 3:55 PM Status: F Source: [facility] Order Comment: US OB ANATOMY SINGLE W US OB CERVICAL LENGTH Estimated Date of Delivery: 03/03/25 Gestational Age as of 09/21/2024: 16w5d EXAM: US OB 14+ WEEKS ANATOM Y SCAN HISTORY: anatomy. COMPARISON: None available. TECHNIQUE: [...] II, MD, PHD at 19-Oct-2024 09:01:31 AM [facility] URINE CULTURE Observed: 08/05/2024 11:05 AM Status: F Source: [facility] <9,000 colonies/ml mixed bacterial skin contaminants 2 Days PERFORMED BY: [place] [address] PATHOLOGIST BAG REPAIRER ELICEO SPENCER M.D. Performed By: #### CUU #### [address] ALLERGIES DATE TYPE / CODE NAME / CODE REACTION SEVERITY SOURCE 01/04/2025 DRUG INGREDI/[id number](SN OMED CT) AMOXICILLIN Rash Low [facility] ENCOUNTERS ADMIT/DISCHARGE ACCOUNT NUMBER ADMITTING ENCOUNTER CLASS LOCATION SOURCE 02/05/2025/02/06/20 25 [id number] [facility]/01/2025/02/02/20 [id number] Ambulatory Building:[facility] S [facility] EPIC 01/25/2025/01/26/20 25 [id number] Ambulatory Building:[facility] S [facility] EPIC 01/18/2025/01/19/20 [id number] [facility] 01/11/2025/01/12/20 25 [id number] Ambulatory Building:NOM S BCP OB [facility] EPIC 12/28/2024/12/29/19 25 [id number] Ambulatory Building:N[facility] S [facility] OB [facility] EPIC 12/28/2024/12/29/19 25 [id number] Ambulatory Building:[facility] EPIC 12/06/2024/12/07/19 25 [id number] Ambulatory Building:[facility] EPIC 11/15/2024/11/16/19 25 [id number] Ambulatory Building:[facility] EPIC 11/15/2024/11/16/19 25 [id number] Ambulatory Building:[facility] EPIC 10/18/2024/10/19/19 25 [id number] Ambulatory Building:[facility] EPIC 10/18/2024/10/19/19 25 [id number] Ambulatory Building:[facility] EPIC 09/21/2024/09/21/19 25 [id number] Ambulatory Building:[facility] EPIC 08/17/2024/08/17/19 25 [id number] Ambulatory Building:N[facility] S [facility] EPIC 08/05/2024/08/05/20 24 [id number] [facility] 07/18/2024/07/18/20 24 [id number] Ambulatory Building:[facility] S [facility] EPIC PAYERS ENCOUNTER GUARANTOR PAYER SUBSCRIBER SOURCE 02/05/2025 Frances De Leon [place], [place] [address]Mpq: (HP) Primary Insurance:Self PayPolicy Number: Effective Date:2025-02-05 NOT GIVENUNK [facility] 02/01/2025 FRANCES EMERSONB: E [place] [address]Tuy: (HP) Primary Insurance:[facility] Number: [id number] Date:2021-05-09 GRACIE EMERSONB: [id number] [place] [address] [facility] EPIC 01/25/2025 FRANCES EMERSONB: E [place]ANI [place], [place] [address]Yst: (HP) Primary Insurance:[facility]Policy Number: [id number] Date:2021-05-09 GRACIE EMERSONB: [id number] [place] [address] [facility] EPIC 01/18/2025 FRANCES EMERSONB: E [place], [place] [address]Kle: (HP) Primary Insurance:[facility] RESOURCESPolicy Number: [id number] Date:2021-05-09 GRACIE EMERSONB: [id number] [facility] 01/11/2025 FRANCES DOEDOB: E [place]SMANI [place]ERIKAJ[place], [place] [address]Vvh: (HP) Primary Insurance:[facility]Policy Number: [id number] Date:2021-05-09 GRACIE EMERSONB: [id number] [place] [address] [facility] EPIC 12/28/2024 FRANCES EMERSONB: [place] [address]Rsp: (HP) Primary Insurance:[facility]Policy Number: [id number] Date:2021-05-09 GRACIE BROWNKHALIFDOB: [id number] [place] [address] [facility] EPIC 12/28/2024 FRANCES DOEDOB: [place], [place] [address]Dfj: (HP) Primary Insurance:[facility]Policy Number: [id number] Date:2021-05-09 GRACIE DOEDOB: [id number] [address] [facility] [place] [address] [facility] EPIC 12/06/2024 FRANCES DOEDOB: [place], [place] [address]Khu: (HP) Primary Insurance:[facility]Policy Number: [id number] Date:2021-05-09 GRACIE DOEDOB: [id number] [place] [address] [facility] EPIC 11/15/2024 FRANCES DOEDOB: [place], [place] [address]Aec: (HP) Primary Insurance:[facility]Policy Number: [id number] Date:2021-05-09 GRACIE DOEDOB: [id number] [place] [address] [facility] EPIC 11/15/2024 FRANCES BROWNBERGERDOB: [place], [place] [address]Qwl: (HP) Primary Insurance:[facility]Policy Number: [id number] Date:2021-05-09 GRACIE DOEDOB: [id number] [place] [address] [facility] EPIC 10/18/2024 FRANCES DOEDOB: [place], [place] [address]Chr: (HP) Primary Insurance:[facility]Policy Number: [id number] Date:2021-05-09 GRACIE KIB: [id number] [place] [address] [facility] EPIC 10/18/2024 FRANCES DOEDOB: [place], [place] [address]Njb: (HP) Primary Insurance:[facility]AREPolicy Number: [id number] Date:2021-05-09 GRACIE EMERSONB: [id number] [place] [address] [facility] EPIC 09/21/2024 FRANCES DOEDOB: [place] [address]Fvq: (HP) Primary Insurance:[facility]AREPolicy Number: [id number] Date:2021-05-09 GRACIE KIB: [id number] [place] [address] [facility] EPIC 08/17/2024 FRANCES DOEDOB: [place], [place] [address]Ymh: (HP) Primary Insurance:[facility]Policy Number: [id number] Date:2021-05-09 GRACIE EMERSONB: [id number] [place] [address] [facility] EPIC 08/05/2024 [place], [place] [address]Gbf: (HP) Primary Insurance:Self PayPolicy Number: Effective Date:2024-08-05 [facility]20[facility] FRANCES DOEDOB: [place], [place] [address]Kez: (HP) Primary Insurance:[facility]AREPolicy Number: [id number] Date:2021-05-09 GRACIE DOEDOB: [id number] [place] [address] [facility] EPIC
[2025-02-12 14:04] VITALS: BP 127/77; PULSE 87; TEMP 36.9; O2SAT 98
--- NOTE | 2025-02-12 14:04 | PC.NURSE ---
Jenniferroyal and 7 day old Jonas arrive for follow up care. Mom states doing well, tired but okay She denies concerns for self or for baby. Taking Motrin for discomfort as needed. VSS and assessment WNL. Incision open to air, steri strips off per pt. Incisin pink, no redness, drainage or odor. To be seen in Dr Canales office after this visit. Baby is wakened when taken from car seat. Color ulises pink. Good tone and active movement x4. VSS and assessment WNL. Bili 7.1 transcutaneous. Discussed feedings. Taking formula every 2 hours, and retaining 2 oz per feed. He tries to gulp it all down so fast . Discussed importance of slow paced bottle feeding for infant that is 36 weeks GA at delivery.Demo with doll for slow paced feeds given. 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 Infant weight stable and diaper for clear large void changed. Mom reports 10-12 wets daily with 6+ stools. To see PCP later this week for NB check. Family leaves without concerns .
== END 2025-02-12 14:07 | disposition home or self-care (01) ==
LOC: FBCO 07:58
PROVIDERS: PCP Family Medicine; Visit Provider Obstetrics & Gynecology
DX: Z39.1 Encounter for care and examination of lactating mother (principal)